=== PATIENT | male | born 1960 | race Caucasian/White ===

== ENCOUNTER → 2018-03-19 08:33 | Outpatient (CLI) | payer MEDICAID, SELFPAY ==
--- NOTE | 2018-03-19 08:36 | AAVD_ITS ---
Reason For Study: atherosclerosis Aorta Measurements Aorta Doppler Measurements Proximal aorta measures1.43 x 1.55cm. in cross- Peak systolic flow velocities within the proximal sectional axis. aorta measure 61.6 cm/sec. Proximal aorta measures1.52cm. in longitudinal Peak systolic flow velocities within the mid aorta axis. measure 68.4 cm/sec. Mid aorta measures1.56 x 1.51cm. in cross- Peak systolic flow velocities within the distal sectional axis. aorta measure 139 cm/sec. Mid aorta measures1.52cm. in longitudinal axis. Distal aorta measures1.58 x 1.65cm. in cross- sectional axis. Distal aorta measures1.58cm. in longitudinal axis. Left Iliac Artery Left iliac artery measures 1.06 x 1.09 cm. in the cross-sectional axis. Peak systolic velocity in the left iliac artery measures 312 cm/sec. Right Iliac Artery Right iliac artery measures 1.02 x 1.12 cm. in the cross-sectional axis. Peak systolic velocity in the right iliac artery measures 64.8 cm/sec. Procedure The exam was of fair technical quality due to bowel gas.. Limited views of Aorta and efrain Iliac arteries. Exam performed in department. Interpretation Summary 1. Left iliac artery stenosis. Ordering Physician: Sukh Shankar Performed By: Rachid Noyola RVT
--- NOTE | 2018-03-19 08:36 | ART_ITS ---
Reason For Study: Aortic Atherosclerosis Procedure A bilateral lower extremity continuous wave Doppler with analog waveform analysis and ankle brachial indexes. Left Segmental Pressures Left brachial= 106mmHg. Left posterior tibial artery = 130mmHg. Left dorsalis pedis artery = 120mmHg. Left digit = 84 mmHg. The left dorsalis pedis waveforms are biphasic. The left posterior tibial artery waveforms are biphasic. Right Segmental Pressures Right brachial= 114mmHg. Right posterior tibial artery = 147mmHg. Right dorsalis pedis artery = 139mmHg. Right digit = 87 mmHg. The right dorsalis pedis waveforms are triphasic. The right posterior tibial artery waveforms are triphasic. Indices The right ankle brachial index by the dorsalis pedis is 1.22. The right ankle brachial index by the posterior tibial artery is 1.29. The right digital-brachial index is 0.76. The left ankle brachial index by the dorsalis pedis is 1.05. The left ankle brachial index by the posterior tibial artery is 1.14. The left digital-brachial index is 0.74. Interpretation Summary 1. Bilateral no significant stenosis at rest with EILEEN 1.29/1.14. Ordering Physician: Sukh Shankar Referring Physician: Jamaica Lambert Performed By: Chas Noyola RVT and Student
== END ==
PROVIDERS: Family Provider Student in an Organized Health Care Education/Training Program; PCP Student in an Organized Health Care Education/Training Program; Referring Provider Surgery Vascular Surgery; Visit Provider Surgery Vascular Surgery
DX: I70.0 Atherosclerosis of aorta (principal); I77.1 Stricture of artery; I70.223 Atherosclerosis of native arteries of extremities with rest pain, bilateral legs
CPT/HCPCS: 93922; 93978

== ENCOUNTER 2018-04-10 09:12 | Day surgery (SDC) | payer MEDICAID, SELFPAY ==
[2018-03-26 08:43] VITALS: BMI 29.8
[2018-04-10 09:40] LABS: Hematocrit 42.1 % (40-54); Hemoglobin 12.9 g/dl (13.0-16.5); Mean Corp Hgb Conc 30.6 g/gl (32-36); Mean Corpuscular Hgb 29.9 pg (27.0-32.0); Mean Corpuscular Volume 97.7 fL (80-94); Mean Platelet Vol. 9.1 fl (6.2-12.0); Platelet Count 377 K/mm3 (150-450); RBC Distribution Width CV 16.1 % (11.6-14.6); RBC Distribution Width SD 57.3 fl (35.1-43.9); Red Blood Count 4.31 M/mm3 (4.6-6.2); Scan Indicated on CBC? Y/N NO; White Blood Count 10.4 K/mm3 (4.4-11.0)
[2018-04-10 09:43] LABS: BUN 22 mg/dL (7-18); BUN/Creat Ratio 31.6 RATIO (10-20); Calcium,Total 9.5 mg/dL (8.5-10.1); Chloride 104 mmol/L (98-107); EST Glomerular Filtration Rate 124 mL/min (>60); Est Glom Filt Rate - Afr Amer 150 mL/min (>60); Estimated Creatinine Clearance 129.33 ml/min; Glucose 103 mg/dL (74-106); Phosphorus 3.6 mg/dL (2.5-4.9); Potassium 4.1 mmol/L (3.5-5.1); Sodium Level 140 mmol/L (136-145)
--- NOTE | 2018-04-10 11:40 | PCM.OPRPT ---
Problem List (1) PAD (peripheral artery disease) Status: Acute Report of Operation Date of Procedure: 04/10/18 Pre-Operative Diagnosis: PAD Post-Operative Diagnosis: The same Surgery/Procedure Performed:: 1. Ultrasound-guided access retrograde left brachial artery. 2. Aortogram with iliofemoral angio. 3. Stent to left common iliac with a 7 x 29 Zoila post balloon with an 8 mm. Type of Anesthesia:: Sedation,Conscious Description of Procedure: Patient brought to the [facility]. Underwent the appropriate timeout consent. Underwent sedation. Prepped and draped in sterile fashion. We did ultrasound guided access retrograde left brachial artery. Put in a 5 Qatari sheath. A 5000 units of heparin. We got the Glidewire and Kumpe catheter down the descending thoracic aorta to the infrarenal aorta. Wrap to get the wire into the left iliac system and the catheter past the area that appeared to have some of the stenosis. We did an angiogram from there and it showed the rest of the common iliac and external iliac to the common femoral was patent. We put us long stiff Glidewire and then. Brought in a long 6 Qatari sheath. We did an angiogram from the aorta showing the right common to external iliac patent. The right internal iliac was occluded. The left common iliac with a severe near subtotal occlusion. Flow into the left internal and external iliac We then brought in a 7 x 29 Zoila stent. The post balloon this with a 8 x 4 balloon. Completion aortogram was markedly improved there is now brisk flow through the left common iliac stent with good flow and filling into the left internal and external iliac artery. We removed out the sheath and put a shorter sheath. We then gave 40 of protamine. We then held pressure with good hemostasis. Sedation: patient was given moderate sedation by Dr nAnette Shankar./ He was monitored with BP, ekg and pulse ox.He was monitored for over the 30 minutes of the procedure. See the EMR for the complete record.
--- NOTE | 2018-04-10 11:46 | OP.PCM_ITS ---
Problem List (1) PAD (peripheral artery disease) Status: Acute Report of Operation Date of Procedure: 04/10/18 Pre-Operative Diagnosis: PAD Post-Operative Diagnosis: The same Surgery/Procedure Performed:: 1. Ultrasound-guided access retrograde left brachial artery. 2. Aortogram with iliofemoral angio. 3. Stent to left common iliac with a 7 x 29 Zoila post balloon with an 8 mm. Type of Anesthesia:: Sedation,Conscious Description of Procedure: Patient brought to the [facility]. Underwent the appropriate timeout consent. Underwent sedation. Prepped and draped in sterile fashion. We did ultrasound guided access retrograde left brachial artery. Put in a 5 Mauritian sheath. A 5000 units of heparin. We got the Glidewire and Kumpe catheter down the desce nding thoracic aorta to the infrarenal aorta. Wrap to get the wire into the left iliac system and the catheter past the area that appeared to have some of the stenosis. We did an angiogram from there and it showed the rest of the common iliac and external iliac to the common femoral was patent. We put us long stiff Glidewire and then. Brought in a long 6 Mauritian sheath. We did an angiogram from the aorta showing the right common to external iliac patent. The right internal iliac was occluded. The left common iliac with a severe near subtotal occlusion. Flow into the left internal and external iliac We then brought in a 7 x 29 Zoila stent. The post balloon this with a 8 x 4 balloon. Completion aortogram was markedly improved there is now brisk flow through the left common iliac stent with good flow and filling into the left internal and external iliac artery. We removed out the sheath and put a shorter sheath. We then gave 40 of protamine. We then held pressure with good hemostasis. Sedation: patient was given moderate sedation by Dr Annette Shankar./ He was monitored with BP, ekg and pulse ox.He was monitored for over the 30 minutes of the procedure. See the EMR for the complete record.
== END 2018-04-10 14:50 | disposition skilled nursing facility (03) ==
LOC: CLSP 09:15
PROVIDERS: Family Provider Student in an Organized Health Care Education/Training Program; PCP Student in an Organized Health Care Education/Training Program; Referring Provider Surgery Vascular Surgery; Visit Provider Surgery Vascular Surgery
DX: I70.223 Atherosclerosis of native arteries of extremities with rest pain, bilateral legs (principal); I11.9 Hypertensive heart disease without heart failure; I25.2 Old myocardial infarction; E78.00 Pure hypercholesterolemia, unspecified; E11.9 Type 2 diabetes mellitus without complications; F10.10 Alcohol abuse, uncomplicated; F17.210 Nicotine dependence, cigarettes, uncomplicated; R56.9 Unspecified convulsions; Z95.1 Presence of aortocoronary bypass graft; Z91.5 Personal history of self-harm; Z79.82 Long term (current) use of aspirin; Z79.84 Long term (current) use of oral hypoglycemic drugs; Z79.899 Other long term (current) drug therapy
CPT/HCPCS: 36245; 36415; 37221; 75710; 76937; 80069; 85027; 99152; 99153; J7040; Q9967; C1725; C1769; C1876; C1894

== ENCOUNTER 2019-07-21 13:06 | Outpatient (RCR) | payer MEDICAID, SELFPAY ==
[2018-03-26 08:43] VITALS: BMI 29.8
[2019-07-21 13:20] VITALS: BP 129/76; PULSE 78; RESP 20; TEMP 36.2; BMI 39.6
--- NOTE | 2019-07-21 14:48 | PCM.WC.HP ---
History of Present Illness Date of Service: 07/21/19 Chief Complaint: Sacral pressure sore, Stage IV. History of Wound: 58 year old man presents with a sacral pressure sore that has extended down to the bone. He developed seizures about 2 years ago and has been in an ECF since then and has been nonambulatory. He denies fever. He complains of pain in the sacral pressure sore. He presents at this time for further evaluation and treatment. Past Medical History Past Medical History: Chronic Problems (Last Updated 12/07/17 @ 08:57 by Shira Conte) Epilepsy (Chronic) Diabetes mellitus (Chronic) Smoker (Chronic) Pressure ulcer of sacral region, stage 4 (Chronic) Past Medical History: Diabetes mellitus. GERD. CRF. Depression. Hyperlipidemia. Epilepsy. CAD. History of suicide attempt. History of alcohol abuse. Hypertension Surgical History: cataract, coronary bypass surgery, pacemaker implantation Allergies/Adverse Reactions: Allergies Penicillins Allergy (Mild, Verified 07/21/19 13:43) rash Home Medications: Ambulatory Orders Medication Instructions Recorded Atorvastatin Calcium [Lipitor] 80 mg PO 03/26/18 Acetaminophen [Tylenol] 650 mg PO 07/21/19 Argin/Glut/Cahmb/Collag/Mv-Min 1 ea PO 07/21/19 [Mike Packet] Aspirin 81 mg PO 07/21/19 Cimetidine [Tagamet Hb] 100 mg PO 07/21/19 Diltiazem HCl 60 mg PO 07/21/19 Docusate Sodium [Colace] 100 mg PO 07/21/19 Duloxetine Hcl [Cymbalta] 60 mg PO 07/21/19 Fenofibrate [Tricor] 145 mg PO 07/21/19 Folic Acid 1 mg PO 07/21/19 Loperamide HCl [Imodium A-D] 2 mg PO 07/21/19 Metformin HCl 1,000 mg PO 07/21/19 Metoprolol Tartrate [Lopressor] 100 mg PO 07/21/19 Multivitamin 1 tab PO 07/21/19 Nystatin Powder [Mycostatin Powder] 1 applic TOPICAL 07/21/19 [place]-3 Fatty Acids/Fish Oil [Fish 1 ea PO 07/21/19 Oil 1,000 mg Capsule] Omeprazole 20 mg PO 07/21/19 Polyethylene Glycol 3350 [Miralax] 17 gm PO 07/21/19 Valproic Acid 3 cap PO 07/21/19 - Family History Maternal Family History: Family History (Last Updated 12/07/17 @ 08:47 by Shira Conte) Father Lung cancer Brother Heart disease Myocardial infarction Mother Diabetes Hypertension Lives: Residential Smoking Status: Current some day smoker Alcohol: None - has history of alcohol abuse. Drugs: None Review of Systems Constitutional: Reports: Malaise, Fatigue. Denies: Chills, Fever Eyes: Reports: Cataracts HEENT: Denies: Nasal Congestion, Sore Throat Cardiovascular: Reports: - - has pacemaker. had CABG.. Denies: Chest Pain Respiratory: Reports: - - patient is a smoker.. Denies: Cough, Shortness of Breath Gastrointestinal: Denies: Constipation, Diarrhea, Nausea, Vomiting Genitourinary: Denies: Frequency, Hematuria Musculoskeletal: Denies: Arm Pain, Back Pain, Hand Pain, Neck Pain Skin: Reports: Wounds - has sacral pressure sore, Stage IV. Neurological: Reports: Seizures, -. Denies: Headaches Psychiatric: Reports: Depression Endocrine: Reports: - - has diabetes mellitus. Hematologic/ Lymphatic: Denies: Easy Bruising, Hx of blood clot - Physical Exam Vital Signs Temp Pulse Resp BP 97.1 F L 78 20 H 129/76 H 07/21/19 13:20 07/21/19 13:20 07/21/19 13:20 07/21/19 13:20 General: Alert, Oriented x3 HEENT: PERRLA, EOMI Oral: Moist Mucosa Neck: Supple Lungs: Clear to auscultation Cardiovascular: Regular rate, Regular Rhythm Abdomen: Soft, Non-Distended Extremities: No clubbing, No cyanosis, Edema - mild edema in lower extremities., - - patient is nonambulatory. Skin: Ulcer/ Wound - has sacral pressure sore extending to the bone. Stage IV. Tender to palpation. Measures 3 x 6 x 1 cm. Wound Measurements and Assessment WC - Nurse 1 - General Ulcer Measurement Start: 07/21/19 13:20 Freq: Status: Active Protocol: Activity Type Activity Date Activity User E-Sign Co-Sign Detail Recorded Client Recorded Date Recorded By Document 07/21/19 13:20 [facility] [id number] 07/21/19 13:36 BM 07/21/19 13:20 Wound Center Nurse 1 [Ulcer Assessment] #1 sacrum -Combined with other wound No -Current Size (cm) - Length 1.9 -Current Size (cm) - Width 5.5 -Current Size (cm) - Depth 0.5 -Total Square Cm 10.45 -Date of Last Picture (Recall this 07/21/19 field) -Photo Taken Yes -Epithelialization None Present -Tunneling No -Undermining/Tunneling Yes -Undermining/Tunneling Starts (O' 4 clock) -Undermining/Tunneling Ends (O'clock) 5 -Maximum Distance (cm) 0.4 -Circular Undermining No -Exudate Amt Small -Exudate Type Serosanguineous -Wound Margin Thickened & Rolled Under -Granulation Amt Medium (34-66%) -Granulation Quality Red -Necrosis Amt Medium (34-66%) -Necrotic Tissue Type Adherent Slough -Structure Exposed N/A -Texture (Rosalia-wound Skin Appearance) Assessed, Excoriation, Scarring -Moisture (Rosalia-wound Skin Appearance Assessed ) -Color (Rosalia-wound Skin Appearance) Assessed, Erythema,Rubor -Temperature (Rosalia-wound Skin No Abnormality Appearance) (Pt Warm) -Tenderness on Palpation (Rosalia-wound No Skin Appearance) -Ulcer Cleansing Wound Cleanser -Foul Odor after Cleansing No -Anesthetic Used 4% Lidocaine Solution WC - Nurse 2 - General Ulcer CM Notes Start: 07/21/19 13:20 Freq: Status: Active Protocol: Activity Type Activity Date Activity User E-Sign Co-Sign Detail Recorded Client Recorded Date Recorded By Document 07/21/19 14:15 ESTELA [id number] 07/21/19 14:17 ESTELA 07/21/19 14:15 Wound Center Nurse 2 [Procedure/Treatment] -Time 14:15 -Correct Patient Yes -Correct Side, Site, Position Yes -Correct Procedure Yes -Procedure Performed Yes -Type of Procedure Debridement -Clinical Debridement Subcutaneous -Post Debridement Size (cm) - Length 2.0 -Post Debridement Size (cm) - Width 5.5 -Post Debridement Size (cm) - Depth 0.5 -Total Square Cm 11.00 -Wound/Ulcer Outcome Not Healed -Ulcer Cleansing Rinsed/ Irrigated with Saline -Foul Odor after Cleansing No -Bioengineered Tissue No -Bleeding Controlled with Pressure -Offloading No -Treatment Response Procedure Tolerated Well [See Physician Procedure note for Specifics] Pain Scale: 0-10 Numeric [Pain] -Is Patient Pain Free? Yes Musculoskeletal: - - patient is nonambulatory. Lymphatic: No Cervical, Supraclavicular, or Inguinal Adenopathy Neurological: Cranial nerves II-XII grossly intact Psych/Mental Status: Normal Affect, Appropriate Debridement Note Post-Debridement Measurements/Treatment WC - Nurse 2 - General Ulcer CM Notes Start: 07/21/19 13:20 Freq: Status: Active Protocol: Activity Type Activity Date Activity User E-Sign Co-Sign Detail Recorded Client Recorded Date Recorded By Document 07/21/19 14:15 ESTEAL [id number] 07/21/19 14:17 ESTELA 07/21/19 14:15 Wound Center Nurse 2 #1 sacrum -Time 14:15 -Correct Patient Yes -Correct Side, Site, Position Yes -Correct Procedure Yes -Procedure Performed Yes -Type of Procedure Debridement -Clinical Debridement Subcutaneous -Post Debridement Size (cm) - Length 2.0 -Post Debridement Size (cm) - Width 5.5 -Post Debridement Size (cm) - Depth 0.5 -Total Square Cm 11.00 -Wound/Ulcer Outcome Not Healed -Ulcer Cleansing Rinsed/ Irrigated with Saline -Foul Odor after Cleansing No -Bioengineered Tissue No -Bleeding Controlled with Pressure -Offloading No -Treatment Response Procedure Tolerated Well Pain Scale: 0-10 Numeric Is Patient Pain Free? Yes Wound debrided: #1 Sacral area. Laterality: Not Applicable Wound Grade/Stage: IV. Type of Debridement: Excisional debridement Anesthesia Used: 4% Lidocaine Solution Depth: Down to and including healthy tissue, in the subcutaneous layer, to bone - bone is palpable but not exposed. Percentage of wound debrided: 100 Instrument Used: 5mm curette Tissue Removed: subcutaneous tissue. Severity: Fat Layer Exposed - bone is palpable but not debrided. Amount of bleeding with debridement: Mild Bleeding Controlled with: Pressure Patient tolerated procedure well Assessment/Plan Assessment: 1. Sacral pressure sore, Stage IV. 2. Diabetes mellitus. 3. PAD. 4. Epilepsy. 5. Smoker. Plan: Recommend excision of this sacral pressure sore. I anticipate bone involvement and a partial ostectomy for osteomyelitis would also be performed. Will send half the tissue and half the bone to Pathology for analysis to rule out carcinoma and to evaluate for osteomyelitis. Will send half the tissue and half the bone to Microbiology for culture. A positive culture will necessitate antibiotic therapy. Surgery will be done under general anesthesia with a surgical observation overnight stay in the hospital. During this time will obtain a CT Pelvis. Will also check a HgbA1c. Before wound closure with a myocutaneous flap, the HgbA1c needs to be less than 8. Anticipate increased metabolic demands from this pressure sore. Will check a Prealbumin and encourage nutritional supplementation with protein to help the healing process. Until surgery, proceed with Dakin's dressing changes twice a day at the [facility]. After surgery, will begin postop wound care with the [facility]. Patient was informed of the risks and complications of the procedure including alternatives to surgery. These were discussed with him personally. He voices understanding and wishes to proceed. Encouraged the patient to stop smoking as it may have deleterious effects on wound healing. At the [facility], he needs a specialty bed such as a low air loss bed to minimize pressure issues. Pressure releases are important as well. He can be in a wheelchair with a specialty cushion as long as pressure releases are done. Office Visits / Consults: [id number] OV L4 New - 25 Modifier ICD-10 - L89.154, E11.9, I73.9, G40.09, F17.200 Multi Select Codes - Integumentary Integumentary CPT Codes: 28706 Yasmine subq tissue 20 sq cm/< - ICD-10 - L89.154, E11.9, I73.9, G40.09, F17.200
== END 2019-08-05 23:59 ==
LOC: WC 13:06
PROVIDERS: PCP Student in an Organized Health Care Education/Training Program; Visit Provider Surgery
DX: L89.154 Pressure ulcer of sacral region, stage 4 (principal); E11.22 Type 2 diabetes mellitus with diabetic chronic kidney disease; N18.9 Chronic kidney disease, unspecified; K21.9 Gastro-esophageal reflux disease without esophagitis; I25.10 Atherosclerotic heart disease of native coronary artery without angina pectoris; I12.9 Hypertensive chronic kidney disease with stage 1 through stage 4 chronic kidney disease, or unspecified chronic kidney disease; E78.5 Hyperlipidemia, unspecified; F32.9 Major depressive disorder, single episode, unspecified; G40.909 Epilepsy, unspecified, not intractable, without status epilepticus; Z79.899 Other long term (current) drug therapy; Z79.84 Long term (current) use of oral hypoglycemic drugs; Z79.82 Long term (current) use of aspirin; F17.200 Nicotine dependence, unspecified, uncomplicated; E11.51 Type 2 diabetes mellitus with diabetic peripheral angiopathy without gangrene
CPT/HCPCS: 11042; 99213; G0463

== ENCOUNTER 2019-08-04 10:16 | Inpatient (IN) | payer MEDICAID, SELFPAY ==
--- NOTE | 2019-08-03 22:13 | HP.PCM_ITS ---
History and Physical Date of Admission: 08/04/19 History of Present Illness Date of Service: 07/21/19 Chief Complaint: Sacral pressure sore, Stage IV. History of Wound: 58 year old man presents with a sacral pressure sore that has extended down to the bone. He developed seizures about 2 years ago and has been in an ECF since then and has been nonambulatory. He denies fever. He complains of pain in the sacral pressure sore. He presents at this time for further evaluation and treatment. Past Medical History Past Medical History: Chronic Problems (Last Updated 12/07/17 @ 08:57 by Shira Conte) Epilepsy (Chronic) Diabetes mellitus (Chronic) Smoker (Chronic) Pressure ulcer of sacral region, stage 4 (Chronic) Past Medical History: Diabetes mellitus. GERD. CRF. Depression. Hy perlipidemia. Epilepsy. CAD. History of suicide attempt. History of alcohol abuse. Hypertension Surgical History: cataract, coronary bypass surgery, pacemaker implantation Allergies/Adverse Reactions: Allergies Penicillins Allergy (Mild, Verified 07/21/19 13:43) rash Home Medications: Ambulatory Orders Medication Instructions Recorded Atorvastatin Calcium [Lipitor] 80 mg PO 03/26/18 Acetaminophen [Tylenol] 650 mg PO 07/21/19 Argin/Glut/Cahmb/Collag/Mv-Min 1 ea PO 07/21/19 [Mike Packet] Aspirin 81 mg PO 07/21/19 Cimetidine [Tagamet Hb] 100 mg PO 07/21/19 Diltiazem HCl 60 mg PO 07/21/19 Docusate Sodium [Colace] 100 mg PO 07/21/19 Duloxetine Hcl [Cymbalta] 60 mg PO 07/21/19 Fenofibrate [Tricor] 145 mg PO 07/21/19 Folic Acid 1 mg PO 07/21/19 Loperamide HCl [Imodium A-D] 2 mg PO 07/21/19 Metformin HCl 1,000 mg PO 07/21/19 Metoprolol Tartrate [Lopressor] 100 mg PO 07/21/19 Multivitamin 1 tab PO 07/21/19 Nystatin Powder [Mycostatin Powder] 1 applic TOPICAL 07/21/19 [place]-3 Fatty Acids/Fish Oil [Fish 1 ea PO 07/21/19 Oil 1,000 mg Capsule] Omeprazole 20 mg PO 07/21/19 Polyethylene Glycol 3350 [Miralax] 17 gm PO 07/21/19 Valproic Acid 3 cap PO 07/21/19 - Family History Maternal Family History: Family History (Last Updated 12/07/17 @ 08:47 by Shira Conte) Father Lung cancer Brother Heart disease Myocardial infarction Mother Diabetes Hypertension Lives: Long Term Smoking Status: Current some day smoker Alcohol: None - has history of alcohol abuse. Drugs: None Review of Systems Constitutional: Reports: Malaise, Fatigue. Denies: Chills, Fever Eyes: Reports: Cataracts HEENT: Denies: Nasal Congestion, Sore Throat Cardiovascular: Reports: - - has pacemaker. had CABG.. Denies: Chest Pain Respiratory: Reports: - - patient is a smoker.. Denies: Cough, Shortness of Breath Gastrointestinal: Denies: Constipation, Diarrhea, Nausea, Vomiting Genitourinary: Denies: Frequency, Hematuria Musculoskeletal: Denies: Arm Pain, Back Pain, Hand Pain, Neck Pain Skin: Reports: Wounds - has sacral pressure sore, Stage IV. Neurological: Reports: Seizures, -. Denies: Headaches Psychiatric: Reports: Depression Endocrine: Reports: - - has diabetes mellitus. Hematologic/ Lymphatic: Denies: Easy Bruising, Hx of blood clot - Physical Exam Vital Signs Temp Pulse Resp BP 97.1 F L 78 20 H 129/76 H 07/21/19 13:20 07/21/19 13:20 07/21/19 13:20 07/21/19 13:20 General: Alert, Oriented x3 HEENT: PERRLA, EOMI Oral: Moist Mucosa Neck: Supple Lungs: Clear to auscultation Cardiovascular: Regular rate, Regular Rhythm Abdomen: Soft, Non-Distended Extremities: No clubbing, No cyanosis, Edema - mild edema in lower extremities., - - patient is nonambulatory. Skin: Ulcer/ Wound - has sacral pressure sore extending to the bone. Stage IV. Tender to palpation. Measures 3 x 6 x 1 cm. Wound Measurements and Assessment WC - Nurse 1 - General Ulcer Measurement Start: 07/21/19 13:20 Freq: Status: Active Protocol: Activity Type Activity Date Activity User E-Sign Co-Sign Detail Recorded Client Recorded Date Recorded By Document 07/21/19 13:20 [facility] [id number] 07/21/19 13:36 BM 07/21/19 13:20 Wound Center Nurse 1 [Ulcer Assessment] #1 sacrum -Combined with other wound No -Current Size (cm) - Length 1.9 -Current Size (cm) - Width 5.5 -Current Size (cm) - Depth 0.5 -Total Square Cm 10.45 -Date of Last Picture (Recall this 07/21/19 field) -Photo Taken Yes -Epithelialization None Present -Tunneling No -Undermining/Tunneling Yes -Undermining/Tunneling Starts (O' 4 clock) -Undermining/Tunneling Ends (O'clock) 5 -Maximum Distance (cm) 0.4 -Circular Undermining No -Exudate Amt Small -Exudate Type Serosanguineous -Wound Margin Thickened & Rolled Under -Granulation Amt Medium (34-66%) -Granulation Quality Red -Necrosis Amt Medium (34-66%) -Necrotic Tissue Type Adherent Slough -Structure Exposed N/A -Texture (Rosalia-wound Skin Appearance) Assessed, Excoriation, Scarring -Moisture (Rosalia-wound Skin Appearance Assessed ) -Color (Rosalia-wound Skin Appearance) Assessed, Erythema,Rubor -Temperature (Rosalia-wound Skin No Abnormality Appearance) (Pt Warm) -Tenderness on Palpation (Rosalia-wound No Skin Appearance) -Ulcer Cleansing Wound Cleanser -Foul Odor after Cleansing No -Anesthetic Used 4% Lidocaine Solution WC - Nurse 2 - General Ulcer CM Notes Start: 07/21/19 13:20 Freq: Status: Active Protocol: Activity Type Activity Date Activity User E-Sign Co-Sign Detail Recorded Client Recorded Date Recorded By Document 07/21/19 14:15 ESTELA [id number] 07/21/19 14:17 ESTELA 07/21/19 14:15 Wound Center Nurse 2 [Procedure/Treatment] -Time 14:15 -Correct Patient Yes -Correct Side, Site, Position Yes -Correct Procedure Yes -Procedure Performed Yes -Type of Procedure Debridement -Clinical Debridement Subcutaneous -Post Debridement Size (cm) - Length 2.0 -Post Debridement Size (cm) - Width 5.5 -Post Debridement Size (cm) - Depth 0.5 -Total Square Cm 11.00 -Wound/Ulcer Outcome Not Healed -Ulcer Cleansing Rinsed/ Irrigated with Saline -Foul Odor after Cleansing No -Bioengineered Tissue No -Bleeding Controlled with Pressure -Offloading No -Treatment Response Procedure Tolerated Well [See Physician Procedure note for Specifics] Pain Scale: 0-10 Numeric [Pain] -Is Patient Pain Free? Yes Musculoskeletal: - - patient is nonambulatory. Lymphatic: No Cervical, Supraclavicular, or Inguinal Adenopathy Neurological: Cranial nerves II-XII grossly intact Psych/Mental Status: Normal Affect, Appropriate Debridement Note Post-Debridement Measurements/Treatment WC - Nurse 2 - General Ulcer CM Notes Start: 07/21/19 13:20 Freq: Status: Active Protocol: Activity Type Activity Date Activity User E-Sign Co-Sign Detail Recorded Client Recorded Date Recorded By Document 07/21/19 14:15 [id number] 07/21/19 14:17 ESTELA 07/21/19 14:15 Wound Center Nurse 2 #1 sacrum -Time 14:15 -Correct Patient Yes -Correct Side, Site, Position Yes -Correct Procedure Yes -Procedure Performed Yes -Type of Procedure Debridement -Clinical Debridement Subcutaneous -Post Debridement Size (cm) - Length 2.0 -Post Debridement Size (cm) - Width 5.5 -Post Debridement Size (cm) - Depth 0.5 -Total Square Cm 11.00 -Wound/Ulcer Outcome Not Healed -Ulcer Cleansing Rinsed/ Irrigated with Saline -Foul Odor after Cleansing No -Bioengineered Tissue No -Bleeding Controlled with Pressure -Offloading No -Treatment Response Procedure Tolerated Well Pain Scale: 0-10 Numeric Is Patient Pain Free? Yes Wound debrided: #1 Sacral area. Laterality: Not Applicable Wound Grade/Stage: IV. Type of Debridement: Excisional debridement Anesthesia Used: 4% Lidocaine Solution Depth: Down to and including healthy tissue, in the subcutaneous layer, to bone - bone is palpable but not exposed. Percentage of wound debrided: 100 Instrument Used: 5mm curette Tissue Removed: subcutaneous tissue. Severity: Fat Layer Exposed - bone is palpable but not debrided. Amount of bleeding with debridement: Mild Bleeding Controlled with: Pressure Patient tolerated procedure well Assessment/Plan Assessment: 1. Sacral pressure sore, Stage IV. 2. Diabetes mellitus. 3. PAD. 4. Epilepsy. 5. Smoker. Plan: Recommend excision of this sacral pressure sore. I anticipate bone involvement and a partial ostectomy for osteomyelitis would also be performed. Will send half the tissue and half the bone to Pathology for analysis to rule out carcinoma and to evaluate for osteomyelitis. Will send half the tissue and half the bone to Microbiology for culture. A positive culture will necessitate antibiotic therapy. Surgery will be done under general anesthesia with a surgical observation overnight stay in the hospital. During this time will obtain a CT Pelvis. Will also check a HgbA1c. Before wound closure with a myocutaneous flap, the HgbA1c needs to be less than 8. Anticipate increased metabolic demands from this pressure sore. Will check a Prealbumin and encourage nutritional supplementation with protein to help the healing process. Until surgery, proceed with Dakin's dressing changes twice a day at the [facility]. After surgery, will begin postop wound care with the VAC. Patient was informed of the risks and complications of the procedure including alternatives to surgery. These were discussed with him personally. He voices understanding and wishes to proceed. Encouraged the patient to stop smoking as it may have deleterious effects on wound healing. At the [facility], he needs a specialty bed such as a low air loss bed to minimize pressure issues. Pressure releases are important as well. He can be in a wheelchair with a specialty cushion as long as pressure releases are done. Essential Procedure Criteria Procedure Essential: Yes Criteria Note: On 04/22/2019 the [place] Department of Health ([facility]) Public Order signed by [facility] Director Emilie Webb M.D., regarding the Management of Non- Essential Surgeries and Procedures for the purpose of preserving Personal Protective Equipment (PPE) and critical hospital capacity and resources within [place] went into effect as of 04/23/2019 at 5:00PM. According to the [facility] Public Order: This action will remain in full force and effect until the State of Emergency declared by the Governor no longer exists or the Director of the [facility] rescinds or modifies this Order.. This [facility] order stated all non-essential or elective surgeries and procedures that utilize PPE should be delayed unless there is undue risk to the current or future health of a patient. After reviewing the aforementioned [facility] Public Order and the patients clinical case, I have determined that the scheduled procedure meets the criteria to go forward. Risk to Patient if Procedure Delayed: Risk of rapidly worsening to severe symptoms if delayed - patient developed a large sacral pressure sore with underlying bone involvement and is at risk for developing osteomyelitis.
[2019-08-04] VITALS (12 sets, daily range): BP systolic 99–131; BP diastolic 58–73; PULSE 68–98; RESP 16–92; TEMP 36.2–36.6; O2SAT 92–98; BMI 38.6
--- NOTE | 2019-08-04 | PRES_PTH ---
PATIENT: LUNA RICHARD LOC: MS3 U#:[id number] AGE/SX: 58/M ROOM: SD316 RE08/05/[address]: Dr. Dg Nguyễn MD : 1960 BED: 1 DIS: 08/13/2019 SPEC #: [id number] RECD: 08/04/19 12:04 STATUS: TIMOTHY REQ #: [id number] KYAW: 08/04/19 00:[address]: Dg Nguyễn DEPT: SURGICAL PATHOLOGY RECD BY: Blayne Wright ENTERED: 08/04/19 12:04 SP TYPE: PRESS SORE OTHR DR: Dr. Jamaica Lambert MD Tissues: A - Sacral region B - Sacral region Procedures: Decalcification bone/plaque Surgery Specimen Level III HEADER OPERATION: Excision sacral pressure sore, partial ostectomy PRE-OP DIAGNOSIS: Sacral pressure sore stage IV TISSUE SUBMITTED: A - Sacral pressure sore stage IV soft tissue, B - Sacral pressure sore stage IV bone MICROSCOPIC DIAGNOSIS A. Sacral pressure sore stage IV soft tissue: Pieces of skin with underlying tissue with focal ulceration, acute and chronic inflammation and granulation tissue reaction. Pseudoepitheliomatous hyperplasia and focal dense fibrosis of underlying tissue. B. Sacral pressure sore stage IV bone: Pieces of bone with reactive changes, negative for acute osteomyelitis. Adherent pieces of fibroconnective tissue with granulation tissue reaction. CITLALI:nidia 08/07/19 MICROSCOPIC DESCRIPTION Slides are reviewed. GROSS DESCRIPTION A - Received in fixative is one container labeled with the patient's name and designated sacral pressure sore stage IV soft tissue. The specimen consists of multiple pieces of skin with underlying tissue and pieces of soft tissue that in aggregate measure 11 x 11 x 2.5 cm. The surface shows extensive area of ulceration. No mass lesion is identified. Premium Service Representative sections are submitted in two cassettes. B - Received in fixative is one container labeled with the patient's name and designated sacral pressure sore stage IV bone. The specimen consists of multiple pieces of bone that in aggregate measure 2.5 x 2 x 0.5 cm. The entire specimen is submitted in one cassette after decalcification. / CITLALI:nidia 08/04/19 TC:2 CPT: 43664 x2, [id number]
--- NOTE | 2019-08-04 06:58 | EKG12_ITS ---
Test Reason : PRE-OP Blood Pressure : / mmHG Vent. Rate : 067 BPM Atrial Rate : 067 BPM P-R Int : 166 ms QRS Dur : 110 ms QT Int : 410 ms P-R-T Axes : 060 -33 063 degrees QTc Int : 433 ms Normal sinus rhythm Left axis deviation Inferior infarct (cited on or before 09-FEB-2012) ST & T wave abnormality, consider lateral ischemia Abnormal ECG When compared with ECG of 09-FEB-2012 06:13, Vent. rate has decreased BY 34 BPM QRS axis Shifted left T wave inversion now evident in Lateral leads Confirmed by KATHERINE LAWRENCE ([id number]), editor index HEVER CERVANTES ([id number]) on 08/07/2019 12:05:06 PM Referred By: Dg Nguyễn Confirmed By:KATHERINE LAWRENCE
[2019-08-04 07:35] LABS: Bedside Glucose 142 mg/dL (70-110)
[2019-08-04] MEDS: Lactated Ringers 1,000 ML 100 ML IV ×2 (08:14→09:45)
--- NOTE | 2019-08-04 10:11 | PCM.OPRPT ---
Report of Operation Date of Procedure: 08/04/19 Pre-Operative Diagnosis: 1. Sacral pressure sore, Stage IV. 2. Diabetes mellitus. 3. PAD. 4. Epilepsy. 5. Smoker. Post-Operative Diagnosis: Same. Surgery/Procedure Performed:: Excision sacral pressure sore, Stage IV, with partial ostectomy for osteomyelitis. Description of Surgical Findings:: 58 year old man presents with a sacral pressure sore that has extended down to the bone. He developed seizures about 2 years ago and has been in an ECF since then and has been nonambulatory. He denies fever. He complains of pain in the sacral pressure sore. Patient was informed of the risks and complications of the procedure including alternatives to surgery. These were discussed with the patient personally. Patient voices understanding and wishes to proceed. Encouraged patient to stop smoking as it may have deleterious effects on wound healing. IV Fluids - 1450 ml. Urine Output - 350 ml. Size of defect sacral area - 19 x 9 x 4 cm. financial assistance specialist: Jasbir Loyd. Type of Anesthesia:: General Specimen's removed: 1. Sacral pressure sore, Stage IV, soft tissue to Pathology and Microbiology. 2. Sacral pressure sore, Stage IV, bone to Pathology and Microbiology. Drains: None. Estimated Blood Loss (mL): 150 ml. Fluids Replaced: 1800 ml (IV Fluids 1450 ml, Urine Output 350 ml). Description of Procedure: Patient was taken to OR in supine position and was placed under general anesthesia. He was placed in the prone position. SCD's were placed for DVT prophylaxis. Perioperative antibiotics were given intravenously. For the surgery I wore an N95 mask and wore proper eye protection. The sacral area was prepped and draped in the usual fashion. Using xylocaine with epinephrine, the sacral pressure sore was infiltrated. After waiting 5 minutes for the anesthetic to take effect, I excised the sacral pressure sore in an oval fashion through dense subcutaneous tissue and muscle which extended down to the bone. A lot of fat necrosis was present as well. No pus was seen. A partial ostectomy was then performed using rongeurs. The bone looked grayish and was not very hard. Clinically the bone looked suspicious for osteomyelitis. Specimens from several areas of bone were taken. A rasp was used to smooth out the bony edges. After excising the extensive fat necrosis and dense abnormal bursal scar tissue, the remaining soft tissue showed good bleeding. The underlying muscle appeared soft and viable. Hemostasis was obtained with electrocautery. The size of the sacral pressure sore after excision was 19 x 9 x 4 cm. The wound was irrigated with saline. I placed bone wax on the sacral bone to help minimize bone bleeding. I then dressed the wound by placing Mepitel nonadherent dressing in the base of the wound followed by Kerlix gauze and Betadine and dry Kerlix gauze followed by ABD pads compression dressing. Half the soft tissue and half the bone was sent to Pathology for analysis to rule out carcinoma and to evaluate for osteomyelitis. Half the soft tissue and half the bone was sent to Microbiology for culture. A positive culture will necessitate antibiotic therapy. If pathology is positive for osteomyelitis, then superintendent container terminal IV antibiotics would be needed through a PICC line. Patient tolerated the procedure well and was sent to PACU in satisfactory condition. Patient will be sent upstairs for continued postop care. The VAC will be placed tomorrow. Anticipate increased metabolic demands. Will check a Prealbumin and encourage nutritional supplementation with protein to help the healing process. If a VAC cannot be placed because of its location and proximity to the anal opening, then will proceed with Dakin's dressing changes twice a day. The pressure sore ulcer is very close to the anal opening. He wound benefit from a diverting colostomy to minimize stool contamination and maximize the healing process. Will discuss with the patient and his family. Grafts/Implants Used: None. - Complications None. - Admit VTE Documentation VTE Present on Admission: No VTE Mechan Device Prophylaxis: SCD's VTE Pharm Prophylaxis ordered?: Yes Surgery Charges CPT - 53572 ICD-10 - L89.154, E11.9, I73.9, G40.909, F17.200
[2019-08-04 11:10] LABS: Bedside Glucose 191 mg/dL (70-110)
[2019-08-04] MEDS: Lactated Ringers 1,000 ML 60 ML IV (12:24)
[2019-08-04] MEDS: dilTIAZem 30 MG Tablet 60 MG PO ×2 (14:04→22:43)
[2019-08-04] MEDS: Divalproex Sodium 250 MG Tablet 750 MG PO ×2 (14:05→22:44)
[2019-08-04 17:15] LABS: Bedside Glucose 234 mg/dL (70-110)
[2019-08-04] MEDS: Docusate Sodium 100 MG Capsule PO (22:43)
[2019-08-04] MEDS: Atorvastatin Calcium 80 MG Tablet PO (22:47)
[2019-08-04] MEDS: Metoprolol Tartrate 100 MG Tablet PO (22:47)
[2019-08-04 23:51] LABS: Bedside Glucose 188 mg/dL (70-110)
[2019-08-05] VITALS (10 sets, daily range): BP systolic 100–143; BP diastolic 41–75; PULSE 78–93; RESP 16–18; TEMP 36.4–36.8; O2SAT 95–99
[2019-08-05] MEDS: Lactated Ringers 1,000 ML 60 ML IV ×2 (04:37→21:04)
[2019-08-05 06:01] LABS: Hematocrit 35.3 % (40-54); Hemoglobin 10.7 g/dL (13.0-16.5); Mean Corp Hgb Conc 30.3 g/dL (32-36); Mean Corpuscular Hgb 29.7 pg (27.0-32.0); Mean Corpuscular Volume 98.1 fL (80-94); Mean Platelet Vol. 9.4 fl (6.2-12.0); Platelet Count 307 K/mm3 (150-450); RBC Distribution Width CV 15.5 % (11.6-14.6); RBC Distribution Width SD 55.8 fl (35.1-43.9); White Blood Count 9.3 K/mm3 (4.4-11.0)
[2019-08-05 06:53] LABS: ALB/GLOB Ratio 0.6 RATIO (0.9-2.4); AST(SGOT) 12 U/L (15-37); Alanine Aminotransfer ALT/SGPT 24 U/L (16-61); Albumin, Serum 2.5 g/dL (3.2-5.0); Alkaline Phosphatase 75 U/L (45-117); Anion Gap 4 (5-15); BUN 23 mg/dL (7-18); BUN/Creat Ratio 31.7 RATIO (10-20); Calcium,Total 8.9 mg/dL (8.5-10.1); Chloride 103 mmol/L (98-107); Creatinine, Serum 0.72 mg/dL (0.70-1.30); EST Glomerular Filtration Rate 118 mL/min (>60); Est Glom Filt Rate - Afr Amer 143 mL/min (>60); Estimated Creatinine Clearance 124.24 ml/min; Globulin 4.5 g/dL (2.2-4.2); Glucose 182 mg/dL (74-106); Potassium 4.2 mmol/L (3.5-5.1); Sodium Level 137 mmol/L (136-145)
[2019-08-05] MEDS: Divalproex Sodium 250 MG Tablet 750 MG PO ×3 (06:58→21:00)
[2019-08-05] MEDS: Enoxaparin 40 MG/0.4 ML Syringe SC (06:59)
[2019-08-05 07:06] LABS: Bedside Glucose 157 mg/dL (70-110)
[2019-08-05 07:07] LABS: Erythrocyte Sedimentation Rate 31 mm/hr (0-20)
[2019-08-05] MEDS: oxyCODONE 5 MG Tablet 10 MG PO ×3 (07:59→20:58)
[2019-08-05] MEDS: Docusate Sodium 100 MG Capsule PO ×2 (08:00→20:59)
[2019-08-05] MEDS: DULoxetine Hcl 60 MG Capsule PO (08:00)
[2019-08-05] MEDS: Folic Acid 1 MG Tablet PO (08:01)
[2019-08-05] MEDS: Pantoprazole Sodium 20 MG Tablet PO (08:01)
[2019-08-05] MEDS: Fenofibrate 145 MG Tablet PO (08:03)
[2019-08-05] MEDS: metFORMIN (XR) 500 MG Tablet 2000 MG PO (08:04)
[2019-08-05] MEDS: Multivitamins,Therapeutic Tablet 1 TABLET PO (08:05)
[2019-08-05] MEDS: Polyethylene Glycol 3350 17 GM PACKET PO (08:10)
[2019-08-05] MEDS: Famotidine 20 MG Tablet PO (08:10)
[2019-08-05] MEDS: Metoprolol Tartrate 100 MG Tablet PO ×2 (08:10→21:01)
--- NOTE | 2019-08-05 10:07 | CASEMGMT ---
Social Work Note Pt is listed as being from [facility]. LUNA placed a call to Kirstin at [facility]. 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 LUNA faxed updated clinicals to [facility]. LUNA in to speak with pt. LUNA introduced self and role at [facility]. Pt is alert and orientated x3. Pt confirms that he is from [facility] and plan is to return at discharge. Plan: Return to [facility] once medically cleared Kay Allen REGISTRATION MANAGER, ADJUNCT FAC[employer]Y
--- NOTE | 2019-08-05 10:24 | PN.SURG_ITS ---
Subjective: post op day #1 - Physical Exam Vitals/I&O's: Vital Signs Temp Pulse Resp BP Pulse Ox 98.0 F 78 18 100/41 L 98 08/05/19 07:55 08/05/19 08:10 08/05/19 07:55 08/05/19 07:55 08/05/19 07:55 Oxygen Flow Rate (L/min) 2 Oxygen Delivery Method Room Air Weight: 285 lb Body Mass Index (BMI) 38.6 Finger Stick Blood Glucose 191 Intake and Output for Last 24 Hours 08/03/19 08/04/19 08/05/19 23:59 23:59 23:59 Intake Total 2106 / 2106 973 / 973 Output Total 2360 / 2360 500 / 500 Balance -254 / -254 473 / 473 General: Alert, Cooperative HEENT: Atraumatic Oral: Moist Mucosa Lungs: Clear to auscultation, Normal air movement Cardiovascular: Regular rate, Regular Rhythm Abdomen: Soft, Non Tender Extremities: Capillary Refill Less than 3 Seconds, Edema Skin: Ulcer/ Wound - Sacral ulcer Stage IV. No active bleeding. Musculoskeletal: No Tenderness to Palpation of Joints or Extremities Neurological: Neuro grossly intact Psych/Mental Status: Normal Affect, Appropriate Microbiology Past 72 Hours 08/04/19 10:26 Tissue - Bone Gram Stain - Final 08/04/19 10:26 Tissue - Bone Wound Culture - Preliminary No growth-Final to follow 08/04/19 10:26 Tissue - Sacral Gram Stain - Final 08/04/19 10:26 Tissue - Sacral Wound Culture - Preliminary Gram negative elmer Laboratory Results 08/04/19 11:07: POC Glucose 191 H 08/04/19 17:10: POC Glucose 234 H 08/04/19 22:34: POC Glucose 188 H 08/05/19 05:32: WBC 9.3, RBC 3.60 L, Hgb 10.7 L, Hct 35.3 L, MCV 98.1 H, MCH 29.7, MCHC 30.3 L, RDW Std Deviation 55.8 H, RDW Coeff of Tio 15.5 H, Plt Count 307, MPV 9.4, ESR 31 H 08/05/19 05:32: Sodium 137, Potassium 4.2, Chloride 103, Carbon Dioxide 30.0, Anion Gap 4 L, BUN 23 H, Creatinine 0.72, Estim Creat Clear Calc 124.24, Est GFR (MDRD) Af Amer 143, Est GFR (MDRD) Non-Af 118, BUN/Creatinine Ratio 31.7 H, Glucose 182 H, Calcium 8.9, Total Bilirubin 0.20, AST 12 L, ALT 24, Alkaline Phosphatase 75, C-React Prot Ext Range 20.50 H, Total Protein 7.0, Albumin 2.5 L , Globulin 4.5 H, Albumin/Globulin Ratio 0.6 L, Prealbumin 19.0 L 08/05/19 06:52: POC Glucose 157 H Current Medications Acetaminophen (Tylenol) 650 mg PO Q6H PRN PRN Reason: PAIN/FEVER Atorvastatin Calcium (Lipitor) 80 mg PO QHS [facility] Last Admin: 08/04/19 22:47 Dose: 80 mg Documented by: Diazepam (Valium) 5 mg PO 4X/DAY PRN PRN PRN Reason: SPASMS Diltiazem HCl (Cardizem) 60 mg PO TID [facility] Last Admin: 08/05/19 07:35 Dose: Not Given Documented by: Divalproex Sodium (Depakote) 750 mg PO TID [facility] Last Admin: 08/05/19 06:58 Dose: 750 mg Documented by: Docusate Sodium (Colace) 100 mg PO BID [facility] Last Admin: 08/05/19 08:00 Dose: 100 mg Documented by: Duloxetine HCl (Cymbalta) 60 mg PO DAILY [facility] Last Admin: 08/05/19 08:00 Dose: 60 mg Documented by: Enoxaparin Sodium (Lovenox) 40 mg SC DAILY@0600 [facility] Last Admin: 08/05/19 06:59 Dose: 40 mg Documented by: Famotidine (Pepcid) 20 mg PO DAILY [facility] Last Admin: 08/05/19 08:10 Dose: 20 mg Documented by: Fen[facility]ibr[facility] (Tricor) [facility] Last Admin: 08/05/19 08:03 Dose: 145 mg Documented by: Folic Acid (Folic Acid) 1 mg PO DAILY@0800 [facility] Last Admin: 08/05/19 08:01 Dose: 1 mg Documented by: Hydromorphone HCl (Dilaudid Inj) 1 mg IV Q4H PRN PRN PRN Reason: Pain Score 6-10/10 Lactated Ringer's () 1,000 mls @ 60 mls/hr IV .[id number] [facility] Last Admin: 08/05/19 04:37 Dose: 60 mls/hr Documented by: Sodium Chloride () 250 mls @ 15 mls/hr IV .[id number] PRN PRN Reason: Saline Flush Sodium Chloride () 250 mls @ 15 mls/hr IV .[id number] PRN PRN Reason: Additional IVPB Infusion Loperamide HCl (Imodium) 2 mg PO TID PRN PRN PRN Reason: Diarrhea Metformin HCl (Glucophage Xr) 2,000 mg [facility] Last Admin: 08/05/19 08:04 Dose: 2,000 mg Documented by: Metoprolol Tartrate (Lopressor (Beta Dana)) 100 mg PO BID [facility] Last Admin: 08/05/19 08:10 Dose: 100 mg Documented by: Multivitamins (Multivitamin) 1 tablet PO DAILY@0800 [facility] Last Admin: 08/05/19 08:05 Dose: 1 tablet Documented by: Nutritional Formula (Mike - [place] Flavor) [facility] Last Admin: 08/05/19 08:01 Dose: 1 packet Documented by: [id number] Ethyl Esters (Lovaza) 1 gm PO DAILY [facility] Last Admin: 08/05/19 08:10 Dose: Not Given Documented by: Ondansetron HCl (Zofran) 4 mg IV Q6H PRN PRN PRN Reason: NAUSEA Oxycodone HCl (Oxyir) 10 mg PO Q4H PRN PRN PRN Reason: Pain Score 6-10/10 Last Admin: 08/05/19 07:59 Dose: 10 mg Documented by: Pantoprazole Sodium (Protonix) 20 mg PO DAILY [facility] Last Admin: 08/05/19 08:01 Dose: 20 mg Documented by: Polyethylene Glycol (Miralax) 17 gm PO DAILY [facility] Last Admin: 08/05/19 08:10 Dose: 17 gm Documented by: Promethazine HCl (Phenergan Tablet) 25 mg PO Q4H PRN PRN PRN Reason: NAUSEA/VOMITING Sodium Chloride () 10 - 40 ml IV UD PRN PRN Reason: SALINE FLUSH Medical Necessity - Tobacco Use Smoking Status: Current every day smoker Tobacco Use: Cigarettes Assessment/Plan All Active Problems (Last Updated 11/02/18 @ 08:57 by Shira Conte) PAD (peripheral artery disease) (Acute) Excision sacral pressure sore, Stage IV, with partial ostectomy for osteomyelitis. Surgical dressing removed without difficulty. Initial plan was to have wound VAC but with the location of the ulcer, it will not have a good seal above the anal opening Will do Dakin's moistened gauze dressing changes twice daily Prealbumin is 19.0. Encouraged nutritional support due to the size of the ulcer. Patient receiving Mike BID. H/H 10.7/35.3 Surgical bone culture - preliminary no growth. Surgical tissue cultures - preliminary Gram negative Elmer.
--- NOTE | 2019-08-05 10:39 | NURSING ---
Spoke with POA on the phone and daily update given.
--- NOTE | 2019-08-05 10:48 | NURSING ---
wound photo: sacrum
[2019-08-05 12:20] LABS: Bedside Glucose 167 mg/dL (70-110)
--- NOTE | 2019-08-05 12:45 | CT_ITS ---
STUDY: CT PELVIS WITHOUT CONTRAST REASON FOR EXAM: Male, 58 years old. Stage four sacral pressure sore, patient had recent surgery for wound RADIATION DOSAGE (If Supplied By Facility): CTDIvol = ( 28.21 ) mGy, DLP = ( 1201.39 ) mGycm TECHNIQUE: Transaxial imaging of the pelvis was performed with oral contrast, and without intravenous administration of contrast material. Individualized dose optimization techniques were used for this CT. COMPARISON: None. FINDINGS: A Chakraborty catheter is seen within the decompressed urinary bladder. A right-sided double-J stent catheter is seen within the right ureter. Normal visualized small intestine. Normal visualized colon. There is no pelvic fluid. There is no pelvic mass lesion or lymphadenopathy. There is diffuse atherosclerotic calcification of the pelvic arteries. There is evidence of a 3 cm x 12.1 cm x 7.4 cm soft tissue defect overlying the posterior sacrum in keeping with the patient''s history of decubitus ulceration and debridement. The underlying bony sacrum appears to be unremarkable. Degenerative changes of the sacroiliac joints bilaterally. Osteoarthritis of both hip joints. CT/Pelvis without IV Contrast IMPRESSION: 12.1 cm x 3 cm x 7.4 sinus soft tissue defect overlying the posterior sacrum in keeping with the patient''s history of decubitus ulceration and debridement. The underlying sacrum is unremarkable. Electronically Signed: Erwin Lazo, at 13:31 EDT , Service support ,
[2019-08-05] MEDS: levoFLOXacin IV 500 MG/100 ML BAG 100 MG IV (14:08)
[2019-08-05] MEDS: dilTIAZem 30 MG Tablet 60 MG PO ×2 (14:12→20:59)
[2019-08-05 16:46] LABS: Bedside Glucose 163 mg/dL (70-110)
[2019-08-05] MEDS: Atorvastatin Calcium 80 MG Tablet PO (21:00)
[2019-08-05] MEDS: Insulin Lispro 100 UNIT/ML INSULN.PEN SC (21:09)
[2019-08-05] MEDS: DAKIN'S SOL HALF STRENGTH (=0.25%) 1 APPLIC TOPICAL (21:12)
[2019-08-05 21:16] LABS: Bedside Glucose 183 mg/dL (70-110)
[2019-08-06] VITALS (7 sets, daily range): BP systolic 103–147; BP diastolic 56–77; PULSE 85–94; RESP 16–20; TEMP 36.7–37.5; O2SAT 92–95
[2019-08-06] MEDS: oxyCODONE 5 MG Tablet 10 MG PO ×3 (01:04→20:31)
[2019-08-06] MEDS: Enoxaparin 40 MG/0.4 ML Syringe SC (06:36)
[2019-08-06] MEDS: dilTIAZem 30 MG Tablet 60 MG PO ×3 (06:36→21:18)
[2019-08-06] MEDS: Divalproex Sodium 250 MG Tablet 750 MG PO ×3 (06:36→21:18)
[2019-08-06 06:45] LABS: Bedside Glucose 140 mg/dL (70-110)
[2019-08-06 06:55] LABS: Hematocrit 35.4 % (40-54); Hemoglobin 10.9 g/dL (13.0-16.5); Mean Corp Hgb Conc 30.8 g/dL (32-36); Mean Corpuscular Hgb 29.5 pg (27.0-32.0); Mean Corpuscular Volume 95.7 fL (80-94); Mean Platelet Vol. 9.5 fl (6.2-12.0); Platelet Count 320 K/mm3 (150-450); RBC Distribution Width CV 15.8 % (11.6-14.6); RBC Distribution Width SD 55.8 fl (35.1-43.9); White Blood Count 12.5 K/mm3 (4.4-11.0)
[2019-08-06 08:21] LABS: Hemoglobin A1c 7.9 % (3.8-5.6)
[2019-08-06] MEDS: Omega-3 Acid Ethyl Esters 1 GM Capsule PO (09:06)
--- NOTE | 2019-08-06 09:06 | NURSING ---
Pt having urine/drainage from around the coyne catheter. the coyne had been in place from the group home and was not changed when patient was admitted for surgery. urine is milky and has a very strong odor. Discussed with Dr Nguyễn and coyne catheter was removed and new 18F catheter was inserted. pt tolerated well. catheter care was provided. gently pulled foreskin back to thoroughly clean and dry prior to catheter insertion. foreskin was then pulled back in place. cath secure placed.
[2019-08-06] MEDS: DULoxetine Hcl 60 MG Capsule PO (09:07)
[2019-08-06] MEDS: Pantoprazole Sodium 20 MG Tablet PO (09:07)
[2019-08-06] MEDS: metFORMIN (XR) 500 MG Tablet 2000 MG PO (09:07)
[2019-08-06] MEDS: Docusate Sodium 100 MG Capsule PO ×2 (09:07→21:18)
[2019-08-06] MEDS: Famotidine 20 MG Tablet PO (09:07)
[2019-08-06] MEDS: Fenofibrate 145 MG Tablet PO (09:07)
[2019-08-06] MEDS: Folic Acid 1 MG Tablet PO (09:07)
[2019-08-06] MEDS: Multivitamins,Therapeutic Tablet 1 TABLET PO (09:08)
[2019-08-06] MEDS: Polyethylene Glycol 3350 17 GM PACKET PO (09:08)
[2019-08-06] MEDS: DAKIN'S SOL HALF STRENGTH (=0.25%) 1 APPLIC TOPICAL ×2 (09:08→22:21)
[2019-08-06] MEDS: Metoprolol Tartrate 100 MG Tablet PO ×2 (09:08→21:17)
[2019-08-06] MEDS: levoFLOXacin IV 500 MG/100 ML BAG 100 MG IV (10:12)
[2019-08-06] MEDS: Insulin Lispro 100 UNIT/ML INSULN.PEN SC ×3 (11:17→21:21)
[2019-08-06 11:35] LABS: Bedside Glucose 186 mg/dL (70-110)
[2019-08-06] MEDS: Lactated Ringers 1,000 ML 60 ML IV (15:20)
--- NOTE | 2019-08-06 15:34 | CASEMGMT ---
Social Work Note LUNA updated by physician that pt is deciding whether to have a diverting colostomy or not. If pt decides not to have diverting colostomy, pt could potentially discharge back to [facility] with dressing changes. It pt does decide to have diverting colostomy, then pt will remain at [facility] for procedure. LUNA placed a call to Kirstin at [facility] and updated her on above information and that if pt decides not to have diverting colostomy then pt will likely discharge back today with dressing changes. Kirstin states understanding. Green sheet and transport form on pt's chart in the event pt is discharged back to [facility] today. Kay Allen NAVAL ENGINEER, [employer]
[2019-08-06 16:20] LABS: Bedside Glucose 155 mg/dL (70-110)
--- NOTE | 2019-08-06 19:59 | PCM.PN.SRG ---
Subjective: Postop #2 Patient is resting comfortably. - Physical Exam Vitals/I&O's: Vital Signs Temp Pulse Resp BP Pulse Ox 98.0 F 93 18 103/67 95 08/06/19 14:40 08/06/19 14:40 08/06/19 14:40 08/06/19 14:40 08/06/19 14:40 Oxygen Flow Rate (L/min) 2 Oxygen Delivery Method Room Air Weight: 285 lb Body Mass Index (BMI) 38.6 Finger Stick Blood Glucose 191 Intake and Output for Last 24 Hours 08/04/19 08/05/19 08/06/19 23:59 23:59 23:59 Intake Total 2106 / 2106 3179 / 3179 1829 / 1829 Output Total 2360 / 2360 3000 / 3000 2650 / 2650 Balance -254 / -254 179 / 179 -821 / -821 General: Alert, Oriented x3 HEENT: PERRLA, EOMI Oral: Moist Mucosa Neck: Supple Abdomen: Soft, Non-Distended Skin: Ulcer/ Wound - sacral wound is stable. No active bleeding noted. Redressed with Dakin's dressing. Neurological: Cranial nerves II-XII grossly intact Psych/Mental Status: Normal Affect, Appropriate Microbiology Past 72 Hours 08/04/19 10:26 Tissue - Sacral Gram Stain - Final 08/04/19 10:26 Tissue - Sacral Wound Culture - Preliminary Proteus mirabilis Gram negative vivien Gram positive vivien 08/04/19 10:26 Tissue - Bone Gram Stain - Final 08/04/19 10:26 Tissue - Bone Wound Culture - Preliminary No growth-Final to follow 08/04/19 10:26 Tissue - Bone Anaerobic Culture - Preliminary No growth in 48 hours. Pathology - pending. Laboratory Results 08/05/19 21:08: POC Glucose 183 H 08/06/19 06:00: WBC 12.5 H, RBC 3.70 L, Hgb 10.9 L, Hct 35.4 L, MCV 95.7 H, MCH 29.5, MCHC 30.8 L, RDW Std Deviation 55.8 H, RDW Coeff of Tio 15.8 H, Plt Count 320, MPV 9.5 08/06/19 06:00: Hemoglobin A1c 7.9 H 08/06/19 06:33: POC Glucose 140 H 08/06/19 11:16: POC Glucose 186 H 08/06/19 16:17: POC Glucose 155 H Current Medications Acetaminophen (Tylenol) 650 mg PO Q6H PRN PRN Reason: PAIN/FEVER Atorvastatin Calcium (Lipitor) 80 mg PO QHS [facility] Last Admin: 08/05/19 21:00 Dose: 80 mg Documented by: Diazepam (Valium) 5 mg PO 4X/DAY PRN PRN PRN Reason: SPASMS Diltiazem HCl (Cardizem) 60 mg PO TID [facility] Last Admin: 08/06/19 14:33 Dose: 60 mg Documented by: Divalproex Sodium (Depakote) 750 mg PO TID [facility] Last Admin: 08/06/19 14:33 Dose: 750 mg Documented by: Docusate Sodium (Colace) 100 mg PO BID [facility] Last Admin: 08/06/19 09:07 Dose: 100 mg Documented by: Duloxetine HCl (Cymbalta) 60 mg PO DAILY [facility] Last Admin: 08/06/19 09:07 Dose: 60 mg Documented by: Enoxaparin Sodium (Lovenox) 40 mg SC DAILY@0600 [facility] Last Admin: 08/06/19 06:36 Dose: 40 mg Documented by: Famotidine (Pepcid) 20 mg PO DAILY [facility] Last Admin: 08/06/19 09:07 Dose: 20 mg Documented by: Fen[facility]ibrate (Tricor) [facility] Last Admin: 08/06/19 09:07 Dose: 145 mg Documented by: Folic Acid (Folic Acid) 1 mg PO DAILY@0800 [facility] Last Admin: 08/06/19 09:07 Dose: 1 mg Documented by: Hydromorphone HCl (Dilaudid Inj) 1 mg IV Q4H PRN PRN PRN Reason: Pain Score 6-10/10 Lactated Ringer's () 1,000 mls @ 60 mls/hr IV .[id number] [facility] Last Admin: 08/06/19 15:20 Dose: 60 mls/hr Documented by: Sodium Chloride () 250 mls @ 15 mls/hr IV .[id number] PRN PRN Reason: Saline Flush Sodium Chloride () 250 mls @ 15 mls/hr IV .[id number] PRN PRN Reason: Additional IVPB Infusion Clindamycin Phosphate 600 mg/ (Dextrose) 54 mls @ 100 mls/hr IV Q8 [facility] Last Infusion: 08/06/19 15:04 Dose: Infused Documented by: Levofloxacin (Levaquin Iv) 500 mg in 100 mls @ 100 mls/hr IV Q24 [facility] Last Infusion: 08/06/19 11:12 Dose: Infused Documented by: Insulin Human Lispro (Humalog Kwikpen (Bkc)) 0 unit SC ACHS [facility]; Protocol Last Admin: 08/06/19 16:17 Dose: 1 u Documented by: Loperamide HCl (Imodium) 2 mg PO TID PRN PRN PRN Reason: Diarrhea Metformin HCl (Glucophage Xr) 2,000 mg [facility] Last Admin: 08/06/19 09:07 Dose: 2,000 mg Documented by: Metoprolol Tartrate (Lopressor (Beta Dana)) 100 mg PO BID [facility] Last Admin: 08/06/19 09:08 Dose: 100 mg Documented by: Multivitamins (Multivitamin) 1 tablet PO DAILY@0800 [facility] Last Admin: 08/06/19 09:08 Dose: 1 tablet Documented by: Nutritional Formula (Mike - [place] Flavor) [facility] Last Admin: 08/06/19 16:20 Dose: 1 packet Documented by: [id number] Ethyl Esters (Lovaza) 1 gm PO DAILY [facility] Last Admin: 08/06/19 09:06 Dose: 1 gm Documented by: Ondansetron HCl (Zofran) 4 mg IV Q6H PRN PRN PRN Reason: NAUSEA Oxycodone HCl (Oxyir) 10 mg PO Q4H PRN PRN PRN Reason: Pain Score 6-10/10 Last Admin: 08/06/19 11:59 Dose: 10 mg Documented by: Pantoprazole Sodium (Protonix) 20 mg PO DAILY [facility] Last Admin: 08/06/19 09:07 Dose: 20 mg Documented by: Polyethylene Glycol (Miralax) 17 gm PO DAILY [facility] Last Admin: 08/06/19 09:08 Dose: 17 gm Documented by: Promethazine HCl (Phenergan Tablet) 25 mg PO Q4H PRN PRN PRN Reason: NAUSEA/VOMITING Sodium Chloride () 10 - 40 ml IV UD PRN PRN Reason: SALINE FLUSH Sodium Hypochlorite (Dakins Solution 0.25% (1/2 Strength)) 1 applic TOPICAL BID [facility]; Protocol Last Admin: 08/06/19 09:08 Dose: 1 applicatio Documented by: Medical Necessity - Tobacco Use Smoking Status: Current every day smoker Tobacco Use: Cigarettes Assessment/Plan All Active Problems (Last Updated 12/07/17 @ 08:57 by Shira Conte) PAD (peripheral artery disease) (Acute) 1. Sacral pressure sore, Stage IV. 2. Diabetes mellitus. 3. PAD. 4. Epilepsy. 5. Smoker. 6. s/p excision sacral pressure sore, Stage IV, with partial ostectomy for osteomyelitis. Sacral wound is stable. Continue Dakin's dressing changes. Operative culture shows Proteus mirabilis, Gram negative vivien, and Gram positive vivien. He is currently on Cleocin and Levaquin. Prealbumin was 19.0. Encourage nutritional supplementation with protein to help the healing process. HgbA1c was 7.9. For any wound closure procedures with myocutaneous flaps, the HgbA1c needs to be less than 8. Due to the close proximity of the pressure sore ulcer to the anal opening, the patient is at increased risk for stool contamination that would make the ulcer worse with the need for additional operative debridements which would make the ulcer larger. The larger the ulcer makes healing much more difficult. I discussed a diverting colostomy with the patient. He wants to think about it and let me know. Encouraged patient to stop smoking as it may have deleterious effects on wound healing.
[2019-08-06 20:31] LABS: Bedside Glucose 195 mg/dL (70-110)
[2019-08-06] MEDS: Atorvastatin Calcium 80 MG Tablet PO (21:17)
[2019-08-07 02:58] VITALS: BP 110/73; PULSE 92; RESP 18; TEMP 37.9; O2SAT 94
[2019-08-07] MEDS: Acetaminophen 325 MG Tablet 650 MG PO (03:05)
[2019-08-07] MEDS: Divalproex Sodium 250 MG Tablet 750 MG PO ×3 (06:30→22:49)
[2019-08-07] MEDS: dilTIAZem 30 MG Tablet 60 MG PO ×3 (06:30→22:47)
[2019-08-07] MEDS: Enoxaparin 40 MG/0.4 ML Syringe SC (06:31)
[2019-08-07] MEDS: Insulin Lispro 100 UNIT/ML INSULN.PEN SC ×3 (06:35→22:55)
[2019-08-07 06:46] LABS: Bedside Glucose 162 mg/dL (70-110)
[2019-08-07] MEDS: DAKIN'S SOL HALF STRENGTH (=0.25%) 1 APPLIC TOPICAL ×2 (08:18→22:50)
[2019-08-07] MEDS: Lactated Ringers 1,000 ML 60 ML IV (08:51)
[2019-08-07] MEDS: Omega-3 Acid Ethyl Esters 1 GM Capsule PO (08:51)
[2019-08-07] MEDS: Docusate Sodium 100 MG Capsule PO ×2 (08:52→22:48)
[2019-08-07 09:00] VITALS: BP 119/64; PULSE 90; RESP 18; TEMP 36.8; O2SAT 95
[2019-08-07] MEDS: metFORMIN (XR) 500 MG Tablet 2000 MG PO (09:00)
[2019-08-07] MEDS: Multivitamins,Therapeutic Tablet 1 TABLET PO (09:00)
[2019-08-07] MEDS: Famotidine 20 MG Tablet PO (09:00)
[2019-08-07] MEDS: Folic Acid 1 MG Tablet PO (09:00)
[2019-08-07] MEDS: Fenofibrate 145 MG Tablet PO (09:00)
[2019-08-07] MEDS: Metoprolol Tartrate 100 MG Tablet PO ×2 (09:00→22:49)
[2019-08-07] MEDS: DULoxetine Hcl 60 MG Capsule PO (09:00)
[2019-08-07] MEDS: Pantoprazole Sodium 20 MG Tablet PO (09:00)
[2019-08-07] MEDS: Polyethylene Glycol 3350 17 GM PACKET PO (09:00)
[2019-08-07] MEDS: levoFLOXacin IV 500 MG/100 ML BAG 100 MG IV (09:57)
[2019-08-07 11:35] LABS: Bedside Glucose 148 mg/dL (70-110)
--- NOTE | 2019-08-07 11:44 | CASEMGMT ---
Social Work Note Per physician, pt is still deciding whether to have diverting colostomy or not. Physician states cultures are still growing so plan is to keep pt at [facility] today, likely discharge tomorrow. LUNA faxed updated clinicals to [facility]. LUNA placed a call to Kirstin at [facility] and updated her on above information. SW updated Kirstin, likely discharge tomorrow. Green sheet, transport form, and COVID screening tool on pt's chart. Plan: Return to [facility] once medically cleared Kay Allen [employer]IS[employer]OOF READER, HAIR SPECIALIST
[2019-08-07 14:24] VITALS: BP 115/57; PULSE 80; RESP 16; TEMP 36.8; O2SAT 95
[2019-08-07 16:11] LABS: Bedside Glucose 159 mg/dL (70-110)
--- NOTE | 2019-08-07 19:59 | PCM.PN.SRG ---
Subjective: Postop #3 Patient is resting comfortably. He is not sure about a colostomy at this time. - Physical Exam Vitals/I&O's: Vital Signs Temp Pulse Resp BP Pulse Ox 98.3 F 80 16 115/57 L 95 08/07/19 14:24 08/07/19 14:24 08/07/19 14:24 08/07/19 14:24 08/07/19 14:24 Oxygen Flow Rate (L/min) 2 Oxygen Delivery Method Room Air Weight: 285 lb 0.006 oz Body Mass Index (BMI) 38.6 Finger Stick Blood Glucose 191 Intake and Output for Last 24 Hours 08/05/19 08/06/19 08/07/19 23:59 23:59 23:59 Intake Total 3179 / 3179 1883 / 1883 1821 / 1821 Output Total 3000 / 3000 2650 / 2650 2300 / 2300 Balance 179 / 179 -767 / -767 -479 / -479 General: Alert, Oriented x3 HEENT: PERRLA, EOMI Oral: Moist Mucosa Neck: Supple Abdomen: Soft, Non-Distended Skin: Ulcer/ Wound - sacral wound is stable. Continue Dakin's dressing changes. Neurological: Cranial nerves II-XII grossly intact Psych/Mental Status: Normal Affect, Appropriate Microbiology Past 72 Hours 08/04/19 10:26 Tissue - Sacral Gram Stain - Final 08/04/19 10:26 Tissue - Sacral Wound Culture - Preliminary Proteus mirabilis Acinetobacter baumannii Corynebacterium striatum 08/04/19 10:26 Tissue - Sacral Anaerobic Culture - Final Anaerobic cocci 08/04/19 10:26 Tissue - Bone Gram Stain - Final 08/04/19 10:26 Tissue - Bone Wound Culture - Preliminary Staphylococcus aureus 08/04/19 10:26 Tissue - Bone Anaerobic Culture - Preliminary No growth in 48 hours. Laboratory Results 08/06/19 20:24: POC Glucose 195 H 08/07/19 06:34: POC Glucose 162 H 08/07/19 11:30: POC Glucose 148 H 08/07/19 16:04: POC Glucose 159 H Current Medications Acetaminophen (Tylenol) 650 mg PO Q6H PRN PRN Reason: PAIN/FEVER Last Admin: 08/07/19 03:05 Dose: 650 mg Documented by: Atorvastatin Calcium (Lipitor) 80 mg PO QHS [facility] Last Admin: 08/06/19 21:17 Dose: 80 mg Documented by: Diazepam (Valium) 5 mg PO 4X/DAY PRN PRN PRN Reason: SPASMS Diltiazem HCl (Cardizem) 60 mg PO TID [facility] Last Admin: 08/07/19 13:21 Dose: 60 mg Documented by: Divalproex Sodium (Depakote) 750 mg PO TID [facility] Last Admin: 08/07/19 13:21 Dose: 750 mg Documented by: Docusate Sodium (Colace) 100 mg PO BID [facility] Last Admin: 08/07/19 08:52 Dose: 100 mg Documented by: Duloxetine HCl (Cymbalta) 60 mg PO DAILY [facility] Last Admin: 08/07/19 09:00 Dose: 60 mg Documented by: Enoxaparin Sodium (Lovenox) 40 mg SC DAILY@0600 [facility] Last Admin: 08/07/19 06:31 Dose: 40 mg Documented by: Famotidine (Pepcid) 20 mg PO DAILY [facility] Last Admin: 08/07/19 09:00 Dose: 20 mg Documented by: Fenofibrate (Tricor) 145 mg PO DAILYCM [facility] Last Admin: 08/07/19 09:00 Dose: 145 mg Documented by: Folic Acid (Folic Acid) 1 mg PO DAILY@0800 [facility] Last Admin: 08/07/19 09:00 Dose: 1 mg Documented by: Hydromorphone HCl (Dilaudid Inj) 1 mg IV Q4H PRN PRN PRN Reason: Pain Score 6-10/10 Lactated Ringer's () 1,000 mls @ 60 mls/hr IV .[id number] [facility] Last Infusion: 08/07/19 13:55 Dose: 60 mls/hr Documented by: Sodium Chloride () 250 mls @ 15 mls/hr IV .[id number] PRN PRN Reason: Saline Flush Sodium Chloride () 250 mls @ 15 mls/hr IV .[id number] PRN PRN Reason: Additional IVPB Infusion Clindamycin Phosphate 600 mg/ (Dextrose) 54 mls @ 100 mls/hr IV Q8 [facility] Last Infusion: 08/07/19 13:55 Dose: Infused Documented by: Levofloxacin (Levaquin Iv) 500 mg in 100 mls @ 100 mls/hr IV Q24 [facility] Last Infusion: 08/07/19 10:57 Dose: Infused Documented by: Insulin Human Lispro (Humalog Kwikpen (Bkc)) 0 unit SC ACHS [facility]; Protocol Last Admin: 08/07/19 16:06 Dose: 1 u Documented by: Loperamide HCl (Imodium) 2 mg PO TID PRN PRN PRN Reason: Diarrhea Metformin HCl (Glucophage Xr) [facility] Last Admin: 08/07/19 09:00 Dose: 2,000 mg Documented by: Metoprolol Tartrate (Lopressor (Beta Dana)) 100 mg PO BID [facility] Last Admin: 08/07/19 09:00 Dose: 100 mg Documented by: Multivitamins (Multivitamin) 1 tablet PO DAILY@0800 [facility] Last Admin: 08/07/19 09:00 Dose: 1 tablet Documented by: Nutritional Formula (Mike - [place] Flavor) [facility] Last Admin: 08/07/19 16:07 Dose: 1 packet Documented by: [id number] Ethyl Esters (Lovaza) 1 gm PO DAILY [facility] Last Admin: 08/07/19 08:51 Dose: 1 gm Documented by: Ondansetron HCl (Zofran) 4 mg IV Q6H PRN PRN PRN Reason: NAUSEA Oxycodone HCl (Oxyir) 10 mg PO Q4H PRN PRN PRN Reason: Pain Score 6-10/10 Last Admin: 08/06/19 20:31 Dose: 10 mg Documented by: Pantoprazole Sodium (Protonix) 20 mg PO DAILY [facility] Last Admin: 08/07/19 09:00 Dose: 20 mg Documented by: Polyethylene Glycol (Miralax) 17 gm PO DAILY [facility] Last Admin: 08/07/19 09:00 Dose: 17 gm Documented by: Promethazine HCl (Phenergan Tablet) 25 mg PO Q4H PRN PRN PRN Reason: NAUSEA/VOMITING Sodium Chloride () 10 - 40 ml IV UD PRN PRN Reason: SALINE FLUSH Sodium Hypochlorite (Dakins Solution 0.25% (1/2 Strength)) 1 applic TOPICAL BID [facility]; Protocol Last Admin: 08/07/19 08:18 Dose: 1 applicatio Documented by: Medical Necessity - Tobacco Use Smoking Status: Current every day smoker Tobacco Use: Cigarettes Assessment/Plan All Active Problems (Last Updated 12/07/17 @ 08:57 by Shira Conte) PAD (peripheral artery disease) (Acute) 1. Sacral pressure sore, Stage IV. 2. Diabetes mellitus. 3. PAD. 4. Epilepsy. 5. Smoker. 6. s/p excision sacral pressure sore, Stage IV, with partial ostectomy for osteomyelitis. Sacral wound is stable. Continue Dakin's dressing changes. Operative culture shows Proteus mirabilis, Acinetobacter baumannii, Corynebacterium striatum, Anaerobic cocci, in the soft tissue and Staphylococcus aureus in the bone. He is currently on Cleocin and Levaquin. Will wait for sensitivities before going back to [facility] as I suspect he may need as PICC line for buttermaker IV antibiotics. Prealbumin was 19.0. Encourage nutritional supplementation with protein to help the healing process. HgbA1c was 7.9. For any wound closure procedures with myocutaneous flaps, the HgbA1c needs to be less than 8. Due to the close proximity of the pressure sore ulcer to the anal opening, the patient is at increased risk for stool contamination that would make the ulcer worse with the need for additional operative debridements which would make the ulcer larger. The larger the ulcer makes healing much more difficult. I discussed a diverting colostomy with the patient. I recommended a diverting colostomy. He is not sure about proceeding with the colostomy at this time. I told him we can further discuss it at the [facility]. If I start seeing stool contamination with the wound care, then he wound need to proceed with the colostomy. He voices understanding. Encouraged patient to stop smoking as it may have deleterious effects on wound healing.
[2019-08-07 22:46] VITALS: BP 144/104; PULSE 91; RESP 20; TEMP 36.7; O2SAT 96
[2019-08-07] MEDS: Atorvastatin Calcium 80 MG Tablet PO (22:48)
[2019-08-07 22:49] VITALS: BP 144/104; PULSE 91
[2019-08-07 23:00] VITALS: PULSE 91; RESP 20; O2SAT 96
[2019-08-07 23:00] LABS: Bedside Glucose 169 mg/dL (70-110)
[2019-08-07] MEDS: oxyCODONE 5 MG Tablet 10 MG PO (23:03)
[2019-08-08] VITALS (9 sets, daily range): BP systolic 103–123; BP diastolic 59–64; PULSE 70–94; RESP 18–20; TEMP 36.5–37.2; O2SAT 92–96
[2019-08-08] MEDS: Acetaminophen 325 MG Tablet 650 MG PO (03:20)
[2019-08-08] MEDS: Lactated Ringers 1,000 ML 60 ML IV ×2 (03:24→17:06)
[2019-08-08] MEDS: dilTIAZem 30 MG Tablet 60 MG PO ×3 (06:21→22:28)
[2019-08-08] MEDS: Divalproex Sodium 250 MG Tablet 750 MG PO ×3 (06:21→22:27)
[2019-08-08] MEDS: Enoxaparin 40 MG/0.4 ML Syringe SC (06:22)
[2019-08-08] MEDS: Insulin Lispro 100 UNIT/ML INSULN.PEN SC ×4 (06:29→23:09)
[2019-08-08 06:36] LABS: Bedside Glucose 151 mg/dL (70-110)
[2019-08-08] MEDS: 0.9% Saline Lock 10 ML Syringe IV (06:55)
[2019-08-08] MEDS: metFORMIN (XR) 500 MG Tablet 2000 MG PO (08:33)
[2019-08-08] MEDS: Multivitamins,Therapeutic Tablet 1 TABLET PO (08:33)
[2019-08-08] MEDS: Folic Acid 1 MG Tablet PO (08:34)
[2019-08-08] MEDS: Fenofibrate 145 MG Tablet PO (08:34)
[2019-08-08] MEDS: Pantoprazole Sodium 20 MG Tablet PO (11:24)
[2019-08-08] MEDS: Metoprolol Tartrate 100 MG Tablet PO ×2 (11:24→22:28)
[2019-08-08] MEDS: DAKIN'S SOL HALF STRENGTH (=0.25%) 1 APPLIC TOPICAL ×2 (11:25→22:28)
[2019-08-08] MEDS: DULoxetine Hcl 60 MG Capsule PO (11:25)
[2019-08-08] MEDS: Docusate Sodium 100 MG Capsule PO (11:26)
[2019-08-08] MEDS: Omega-3 Acid Ethyl Esters 1 GM Capsule PO (11:26)
[2019-08-08] MEDS: Famotidine 20 MG Tablet PO (11:28)
[2019-08-08 12:31] LABS: Hematocrit 36.4 % (40-54); Hemoglobin 11.3 g/dL (13.0-16.5); Mean Corpuscular Hgb 29.8 pg (27.0-32.0); Mean Platelet Vol. 9.3 fl (6.2-12.0); Platelet Count 311 K/mm3 (150-450); RBC Distribution Width CV 15.9 % (11.6-14.6); RBC Distribution Width SD 56.2 fl (35.1-43.9); Red Blood Count 3.79 M/mm3 (4.6-6.2)
[2019-08-08 12:41] LABS: Bedside Glucose 218 mg/dL (70-110)
[2019-08-08 12:49] LABS: Anion Gap 7 (5-15); BUN 24 mg/dL (7-18); BUN/Creat Ratio 25.3 RATIO (10-20); Calcium,Total 9.6 mg/dL (8.5-10.1); Chloride 103 mmol/L (98-107); Creatinine, Serum 0.95 mg/dL (0.70-1.30); EST Glomerular Filtration Rate 87 mL/min (>60); Est Glom Filt Rate - Afr Amer 105 mL/min (>60); Estimated Creatinine Clearance 94.16 ml/min; Glucose 166 mg/dL (74-106); Potassium 3.9 mmol/L (3.5-5.1); Sodium Level 136 mmol/L (136-145)
[2019-08-08] MEDS: levoFLOXacin 500 MG Tablet PO (13:17)
[2019-08-08] MEDS: metroNIDAZOLE 500 MG Tablet PO ×2 (13:19→22:28)
[2019-08-08 17:31] LABS: Bedside Glucose 163 mg/dL (70-110)
--- NOTE | 2019-08-08 17:39 | PCM.RX.CS ---
Consult Pharmacy has been consulted to manage selected antiobiotic: Vancomycin Type of Consult: New start Labs: Sodium 136 mmol/L (136-145) 08/08/19 12:20 Potassium 3.9 mmol/L (3.5-5.1) 08/08/19 12:20 Chloride 103 mmol/L (98-107) 08/08/19 12:20 Carbon Dioxide 26.0 mmol/L (21.0-32.0) 08/08/19 12:20 Anion Gap 7 (5-15) 08/08/19 12:20 BUN 24 mg/dL (7-18) H 08/08/19 12:20 Creatinine 0.95 mg/dL (0.70-1.30) 08/08/19 12:20 Est GFR (MDRD) Af Amer 105 mL/min (>60) 08/08/19 12:20 Est GFR (MDRD) Non-Af 87 mL/min (>60) 08/08/19 12:20 BUN/Creatinine Ratio 25.3 RATIO (10-20) H 08/08/19 12:20 Glucose 166 mg/dL (74-106) H 08/08/19 12:20 Microbiology: Microbiology 08/04/19 10:26 Tissue - Bone Gram Stain - Final 08/04/19 10:26 Tissue - Bone Wound Culture - Final Meth. resistant Staph. aureus 08/04/19 10:26 Tissue - Bone Anaerobic Culture - Preliminary No growth in 48 hours. 08/04/19 10:26 Tissue - Sacral Gram Stain - Final 08/04/19 10:26 Tissue - Sacral Wound Culture - Final Proteus mirabilis Acinetobacter baumannii Corynebacterium striatum 08/04/19 10:26 Tissue - Sacral Anaerobic Culture - Final Anaerobic cocci Weight used for dosin kg Estimated Creatinine Clearance: > 100 Goal Trough: 15-20 mcg/mL Pharmacy Plan for Drug Dosing: Vanc 2000mg IV q12h with trough prior to 4th dose per policy. Pharmacy Service will continue to monitor and adjust dosing as required. Follow-Up Labs: Trough Vancomycin - 08/09 @ 0647
--- NOTE | 2019-08-08 19:22 | PN.SURG_ITS ---
Subjective: Postop #4 Patient is resting comfortably. - Physical Exam Vitals/I&O's: Vital Signs Temp Pulse Resp BP Pulse Ox 98.0 F 74 18 118/60 95 08/08/19 17:23 08/08/19 17:23 08/08/19 17:23 08/08/19 17:23 08/08/19 17:23 Oxygen Flow Rate (L/min) 2 Oxygen Delivery Method Room Air Weight: 285 lb 0.006 oz Body Mass Index (BMI) 38.6 Finger Stick Blood Glucose 191 Intake and Output for Last 24 Hours 08/06/19 08/07/19 08/08/19 23:59 23:59 23:59 Intake Total 1883 / 1883 2404 / 2744 2000 Output Total 2650 / 2650 2300 / 4300 3350 / 3350 Balance -767 / -767 104 / -1556 -1349 / -1349 General: Alert, Oriented x3 HEENT: PERRLA, EOMI Oral: Moist Mucosa Neck: Supple Abdomen: Soft, Non-Distended Skin: Ulcer/ Wound - sacral wound is stable. No active bleeding. No evidence of further infection at this time. Redressed with Dakin's dressing changes. Neurological: Cranial nerves II-XII grossly intact Psych/Mental Status: Normal Affect, Appropriate Microbiology Past 72 Hours 08/04/19 10:26 Tissue - Bone Gram Stain - Final 08/04/19 10:26 Tissue - Bone Wound Culture - Final Meth. resistant Staph. aureus 08/04/19 10:26 Tissue - Bone Anaerobic Culture - Preliminary No growth in 48 hours. 08/04/19 10:26 Tissue - Sacral Gram Stain - Final 08/04/19 10:26 Tissue - Sacral Wound Culture - Final Proteus mirabilis Acinetobacter baumannii Corynebacterium striatum 08/04/19 10:26 Tissue - Sacral Anaerobic Culture - Final Anaerobic cocci Pathology - negative for acute osteomyelitis. Laboratory Results 08/07/19 22:55: POC Glucose 169 H 08/08/19 06:28: POC Glucose 151 H 08/08/19 12:20: WBC 12.0 H, RBC 3.79 L, Hgb 11.3 L, Hct 36.4 L, MCV 96.0 H, MCH 29.8, MCHC 31.0 L, RDW Std Deviation 56.2 H, RDW Coeff of Tio 15.9 H, Plt Count 311, MPV 9.3 08/08/19 12:20: Sodium 136, Potassium 3.9, Chloride 103, Carbon Dioxide 26.0, Anion Gap 7, BUN 24 H, Creatinine 0.95, Estim Creat Clear Calc 94.16, Est GFR (MDRD) Af Amer 105, Est GFR (MDRD) Non-Af 87, BUN/Creatinine Ratio 25.3 H, Glucose 166 H, Calcium 9.6 08/08/19 12:38: POC Glucose 218 H 08/08/19 17:18: POC Glucose 163 H Current Medications Acetaminophen (Tylenol) 650 mg PO Q6H PRN PRN Reason: PAIN/FEVER Last Admin: 08/08/19 03:20 Dose: 650 mg Documented by: Atorvastatin Calcium (Lipitor) 80 mg PO QHS [facility] Last Admin: 08/07/19 22:48 Dose: 80 mg Documented by: Diazepam (Valium) 5 mg PO 4X/DAY PRN PRN PRN Reason: SPASMS Diltiazem HCl (Cardizem) 60 mg PO TID [facility] Last Admin: 08/08/19 13:20 Dose: 60 mg Documented by: Divalproex Sodium (Depakote) 750 mg PO TID [facility] Last Admin: 08/08/19 13:19 Dose: 750 mg Documented by: Docusate Sodium (Colace) 100 mg PO BID [facility] Last Admin: 08/08/19 11:26 Dose: 100 mg Documented by: Duloxetine HCl (Cymbalta) 60 mg PO DAILY [facility] Last Admin: 08/08/19 11:25 Dose: 60 mg Documented by: Enoxaparin Sodium (Lovenox) 40 mg SC DAILY@0600 [facility] Last Admin: 08/08/19 06:22 Dose: 40 mg Documented by: Famotidine (Pepcid) 20 mg PO DAILY [facility] Last Admin: 08/08/19 11:28 Dose: 20 mg Documented by: [facility] ([facility]) [facility] Last Admin: 08/08/19 08:34 Dose: 145 mg Documented by: Folic Acid (Folic Acid) 1 mg PO DAILY@0800 [facility] Last Admin: 08/08/19 08:34 Dose: 1 mg Documented by: Heparin Sodium (Beef Lung) () 50 units IV UD PRN PRN Reason: PICC Line Heparin Flush Hydromorphone HCl (Dilaudid Inj) 1 mg IV Q4H PRN PRN PRN Reason: Pain Score 6-10/10 Lactated Ringer's () 1,000 mls @ 60 mls/hr IV .[id number] [facility] Last Infusion: 08/08/19 17:10 Dose: 0 mls/hr Documented by: Sodium Chloride () 250 mls @ 15 mls/hr IV .[id number] PRN PRN Reason: Saline Flush Sodium Chloride () 250 mls @ 15 mls/hr IV .[id number] PRN PRN Reason: Additional IVPB Infusion Vancomycin IV Pharmacy to Dose (1 ea/ Sodium Chloride) 500 mls @ 250 mls/hr IV X1 PRN; Protocol PRN Reason: Rx to Dose Vancomycin HCl 2,000 mg/ (Sodium Chloride) 540 mls @ 250 mls/hr IV X1 ONE Stop: 08/08/19 20:09 Last Admin: 08/08/19 17:22 Dose: 250 mls/hr Documented by: Vancomycin HCl 2,000 mg/ (Sodium Chloride) 540 mls @ 250 mls/hr IV Q12H [facility] Insulin Human Lispro (Humalog Kwikpen (Bkc)) 0 unit SC [facility]; Protocol Last Admin: 08/08/19 17:20 Dose: 1 u Documented by: Levofloxacin (Levaquin Tablet) 500 mg PO DAILY@0600 [facility] Loperamide HCl (Imodium) 2 mg PO TID PRN PRN PRN Reason: Diarrhea Metformin HCl (Glucophage Xr) [facility] Last Admin: 08/08/19 08:33 Dose: 2,000 mg Documented by: Metoprolol Tartrate (Lopressor (Beta Dana)) 100 mg PO BID [facility] Last Admin: 08/08/19 11:24 Dose: 100 mg Documented by: Metronidazole (Flagyl) 500 mg PO TID [facility] Last Admin: 08/08/19 13:19 Dose: 500 mg Documented by: Multivitamins (Multivitamin) 1 tablet PO DAILY@0800 [facility] Last Admin: 08/08/19 08:33 Dose: 1 tablet Documented by: Nutritional Formula (Mike - [place] Flavor) [facility] Last Admin: 08/08/19 17:21 Dose: 1 packet Documented by: [id number] Ethyl Esters (Lovaza) 1 gm PO DAILY [facility] Last Admin: 08/08/19 11:26 Dose: 1 gm Documented by: Ondansetron HCl (Zofran) 4 mg IV Q6H PRN PRN PRN Reason: NAUSEA Oxycodone HCl (Oxyir) 10 mg PO Q4H PRN PRN PRN Reason: Pain Score 6-10/10 Last Admin: 08/07/19 23:03 Dose: 10 mg Documented by: Pantoprazole Sodium (Protonix) 20 mg PO DAILY [facility] Last Admin: 08/08/19 11:24 Dose: 20 mg Documented by: Polyethylene Glycol (Miralax) 17 gm PO DAILY [facility] Last Admin: 08/08/19 11:26 Dose: Not Given Documented by: Promethazine HCl (Phenergan Tablet) 25 mg PO Q4H PRN PRN PRN Reason: NAUSEA/VOMITING Sodium Chloride () 10 - 40 ml IV UD PRN PRN Reason: SALINE FLUSH Last Admin: 08/08/19 06:55 Dose: 10 ml Documented by: Sodium Chloride () 10 - 40 ml IV UD PRN PRN Reason: Open End PICC Flush Sodium Chloride (0.9% Nacl (Sterile) Posiflush) 10 - 40 ml IV UD PRN PRN Reason: Port access or dressing change Sodium Hypochlorite (Dakins Solution 0.25% (1/2 Strength)) 1 applic TOPICAL BID [facility]; Protocol Last Admin: 08/08/19 11:25 Dose: 1 applicatio Documented by: Medical Necessity - Tobacco Use Smoking Status: Current every day smoker Tobacco Use: Cigarettes Assessment/Plan All Active Problems (Last Updated 12/07/17 @ 08:57 by Shira Conte) PAD (peripheral artery disease) (Acute) 1. Sacral pressure sore, Stage IV. 2. Diabetes mellitus. 3. PAD. 4. Epilepsy. 5. Smoker. 6. s/p excision sacral pressure sore, Stage IV, with partial ostectomy for osteomyelitis. Sacral wound is stable. Continue Dakin's dressing changes. Operative culture shows Proteus mirabilis, MDR Acinetobacter baumannii, Corynebacterium striatum, Anaerobic cocci, in the soft tissue and MRSA in the bone. His antibiotics were changed. The Levaquin was maintained and changed to PO. The Cleocin was stopped. Added Flagyl PO. Started IV Vancomycin and Tobramycin. A PICC line will be needed for shelter IV antibiotics. Prealbumin was 19.0. Encourage nutritional supplementation with protein to help the healing process. HgbA1c was 7.9. For any wound closure procedures with myocutaneous flaps, the HgbA1c needs to be less than 8. Due to the close proximity of the pressure sore ulcer to the anal opening, the patient is at increased risk for stool contamination that would make the ulcer worse with the need for additional operative debridements which would make the ulcer larger. The larger the ulcer makes healing much more difficult. I discussed a diverting colostomy with the patient. I recommended a diverting colostomy. He is not sure about proceeding with the colostomy at this time. I told him we can further discuss it at the Wound Center. If I start seeing stool contamination with the wound care, then he wound need to proceed with the colostomy. He voices understanding. Encouraged patient to stop smoking as it may have deleterious effects on wound healing.
[2019-08-08] MEDS: Atorvastatin Calcium 80 MG Tablet PO (22:28)
[2019-08-08] MEDS: oxyCODONE 5 MG Tablet 10 MG PO (23:03)
[2019-08-08 23:15] LABS: Bedside Glucose 195 mg/dL (70-110)
--- NOTE | 2019-08-08 23:31 | NURSING ---
08/08/[address] Nguyễn and was unable to reach him or leave voicemail on his mobile via [employer] operator in regards to pt. pulling out PICC line. Also, tried calling [phone] as number listed on whiteboard and it was a non working number at this hospital. Will reattempt to get Clive.
--- NOTE | 2019-08-09 00:27 | NURSING ---
08/09/2019 0027 Attempted to contact MD again and was unsuccessful and unable to leave VM due to inbox being full. Will try again in the morning.Will continue to monitor patient. Kylah MOCTEZUMA
[2019-08-09 02:15] VITALS: BP 114/67; PULSE 85; RESP 20; TEMP 36.7; O2SAT 95
[2019-08-09] MEDS: dilTIAZem 30 MG Tablet 60 MG PO ×3 (05:29→22:27)
[2019-08-09] MEDS: levoFLOXacin 500 MG Tablet PO (05:29)
[2019-08-09] MEDS: Enoxaparin 40 MG/0.4 ML Syringe SC (05:29)
[2019-08-09] MEDS: metroNIDAZOLE 500 MG Tablet PO ×3 (05:29→22:28)
[2019-08-09] MEDS: Divalproex Sodium 250 MG Tablet 750 MG PO ×3 (05:30→22:28)
[2019-08-09 06:46] LABS: Bedside Glucose 126 mg/dL (70-110)
--- NOTE | 2019-08-09 06:55 | NURSING ---
Called [employer] machine operator regarding need for PICC placement. They advised that they only have 1 nurse on today so it may be this evening before it can be placed. They will call when they have an idea when it can be done.
[2019-08-09 10:51] VITALS: BP 141/61; PULSE 91; RESP 20; TEMP 37.1; O2SAT 96
[2019-08-09] MEDS: Docusate Sodium 100 MG Capsule PO (11:00)
[2019-08-09 11:01] VITALS: PULSE 91
[2019-08-09] MEDS: Metoprolol Tartrate 100 MG Tablet PO ×2 (11:01→22:27)
[2019-08-09] MEDS: Folic Acid 1 MG Tablet PO (11:01)
[2019-08-09] MEDS: metFORMIN (XR) 500 MG Tablet 2000 MG PO (11:01)
[2019-08-09] MEDS: Famotidine 20 MG Tablet PO (11:02)
[2019-08-09] MEDS: DULoxetine Hcl 60 MG Capsule PO (11:02)
[2019-08-09] MEDS: Omega-3 Acid Ethyl Esters 1 GM Capsule PO (11:02)
[2019-08-09] MEDS: Polyethylene Glycol 3350 17 GM PACKET PO (11:02)
[2019-08-09] MEDS: Pantoprazole Sodium 20 MG Tablet PO (11:02)
[2019-08-09] MEDS: Multivitamins,Therapeutic Tablet 1 TABLET PO (11:03)
[2019-08-09] MEDS: Fenofibrate 145 MG Tablet PO (11:03)
[2019-08-09] MEDS: DAKIN'S SOL HALF STRENGTH (=0.25%) 1 APPLIC TOPICAL ×2 (11:04→22:07)
--- NOTE | 2019-08-09 11:38 | NURSING ---
aware per receptionist doctor's office there is a delay in service for the area for picc placement, they will call when they have an approximate time for placement
[2019-08-09 11:51] LABS: Bedside Glucose 118 mg/dL (70-110)
--- NOTE | 2019-08-09 12:02 | NURSING ---
Taylor his significant other called for an update on pt and was informed that pt pulled PICC line out last night. Taylor stated that he has done that before at the other hospital and they had to use mittens or tie him down. She thinks that if we put it in again (the picc line) pt will pull it out again.
--- NOTE | 2019-08-09 13:38 | PN.SURG_ITS ---
Subjective: Postop #5 Patient is resting comfortably. - Physical Exam Vitals/I&O's: Vital Signs Temp Pulse Resp BP Pulse Ox 98.7 F 91 20 H 141/61 H 96 08/09/19 10:51 08/09/19 11:01 08/09/19 10:51 08/09/19 10:51 08/09/19 10:51 Oxygen Flow Rate (L/min) 2 Oxygen Delivery Method Room Air Weight: 285 lb 0.006 oz Body Mass Index (BMI) 38.6 Finger Stick Blood Glucose 191 Intake and Output for Last 24 Hours 08/07/19 08/08/19 08/09/19 23:59 23:59 23:59 Intake Total 2404 / 2744 2604.5 / 2604.5 540 / 540 Output Total 2300 / 4300 3350 / 3350 1425 / 1425 Balance 104 / -1556 -745.5 / -745.5 -885 / -885 General: Alert, Oriented x3 HEENT: PERRLA, EOMI Oral: Moist Mucosa Neck: Supple Abdomen: Soft, Non-Distended Skin: Ulcer/ Wound - sacral pressure sore is stable. No active bleeding. No evidence of residual infection at this time. The ulcer was redressed with Dakin's dressing changes. Neurological: Cranial nerves II-XII grossly intact Psych/Mental Status: Normal Affect, Appropriate Microbiology Past 72 Hours 08/04/19 10:26 Tissue - Bone Gram Stain - Final 08/04/19 10:26 Tissue - Bone Wound Culture - Final Meth. resistant Staph. aureus 08/04/19 10:26 Tissue - Bone Anaerobic Culture - Preliminary No growth in 48 hours. 08/04/19 10:26 Tissue - Sacral Gram Stain - Final 08/04/19 10:26 Tissue - Sacral Wound Culture - Final Proteus mirabilis Acinetobacter baumannii Corynebacterium striatum 08/04/19 10:26 Tissue - Sacral Anaerobic Culture - Final Anaerobic cocci Pathology - negative for acute osteomyelitis. Laboratory Results 08/08/19 17:18: POC Glucose 163 H 08/08/19 23:08: POC Glucose 195 H 08/09/19 06:37: POC Glucose 126 H 08/09/19 11:40: POC Glucose 118 H 08/09/19 12:30: Random Tobramycin Pending Current Medications Acetaminophen (Tylenol) 650 mg PO Q6H PRN PRN Reason: PAIN/FEVER Last Admin: 08/08/19 03:20 Dose: 650 mg Documented by: Atorvastatin Calcium (Lipitor) 80 mg PO QHS [facility] Last Admin: 08/08/19 22:28 Dose: 80 mg Documented by: Diazepam (Valium) 5 mg PO 4X/DAY PRN PRN PRN Reason: SPASMS Diltiazem HCl (Cardizem) 60 mg PO TID [facility] Last Admin: 08/09/19 05:29 Dose: 60 mg Documented by: Divalproex Sodium (Depakote) 750 mg PO TID [facility] Last Admin: 08/09/19 05:30 Dose: 750 mg Documented by: Docusate Sodium (Colace) 100 mg PO BID [facility] Last Admin: 08/09/19 11:00 Dose: 100 mg Documented by: Duloxetine HCl (Cymbalta) 60 mg PO DAILY [facility] Last Admin: 08/09/19 11:02 Dose: 60 mg Documented by: Enoxaparin Sodium (Lovenox) 40 mg SC DAILY@0600 [facility] Last Admin: 08/09/19 05:29 Dose: 40 mg Documented by: Famotidine (Pepcid) 20 mg PO DAILY [facility] Last Admin: 08/09/19 11:02 Dose: 20 mg Documented by: Fenofibrate (Tricor) 145 mg PO DAILYCM [facility] Last Admin: 08/09/19 11:03 Dose: 145 mg Documented by: Folic Acid (Folic Acid) 1 mg PO DAILY@0800 [facility] Last Admin: 08/09/19 11:01 Dose: 1 mg Documented by: Heparin Sodium (Beef Lung) () 50 units IV UD PRN PRN Reason: PICC Line Heparin Flush Hydromorphone HCl (Dilaudid Inj) 1 mg IV Q4H PRN PRN PRN Reason: Pain Score 6-10/10 Lactated Ringer's () 1,000 mls @ 60 mls/hr IV .[id number] [facility] Last Infusion: 08/09/19 07:40 Dose: 60 mls/hr Documented by: Sodium Chloride () 250 mls @ 15 mls/hr IV .[id number] PRN PRN Reason: Saline Flush Sodium Chloride () 250 mls @ 15 mls/hr IV .[id number] PRN PRN Reason: Additional IVPB Infusion Vancomycin IV Pharmacy to Dose (1 ea/ Sodium Chloride) 500 mls @ 250 mls/hr IV X1 PRN; Protocol PRN Reason: Rx to Dose Vancomycin HCl 2,000 mg/ (Sodium Chloride) 540 mls @ 250 mls/hr IV Q12H [facility] Last Infusion: 08/09/19 07:45 Dose: Infused Documented by: Tobramycin Sulfate 540 mg/ (Dextrose) 63.5 mls @ 100 mls/hr IV Q24H [facility] Insulin Human Lispro (Humalog Kwikpen (Bkc)) 0 unit SC ACHS [facility]; Protocol Last Admin: 08/09/19 11:41 Dose: Not Given Documented by: Levofloxacin (Levaquin Tablet) 500 mg PO DAILY@0600 [facility] Last Admin: 08/09/19 05:29 Dose: 500 mg Documented by: Loperamide HCl (Imodium) 2 mg PO TID PRN PRN PRN Reason: Diarrhea [facility]) [facility] Last Admin: 08/09/19 11:01 Dose: 2,000 mg Documented by: Metoprolol Tartrate (Lopressor (Beta Dana)) 100 mg PO BID [facility] Last Admin: 08/09/19 11:01 Dose: 100 mg Documented by: Metronidazole (Flagyl) 500 mg PO TID [facility] Last Admin: 08/09/19 05:29 Dose: 500 mg Documented by: Multivitamins (Multivitamin) 1 tablet PO DAILY@0800 [facility] Last Admin: 08/09/19 11:03 Dose: 1 tablet Documented by: Nutritional Formula (Mike - [place] Flavor) [facility] Last Admin: 08/09/19 11:00 Dose: 1 packet Documented by: [id number] Ethyl Esters (Lovaza) 1 gm PO DAILY [facility] Last Admin: 08/09/19 11:02 Dose: 1 gm Documented by: Ondansetron HCl (Zofran) 4 mg IV Q6H PRN PRN PRN Reason: NAUSEA Oxycodone HCl (Oxyir) 10 mg PO Q4H PRN PRN PRN Reason: Pain Score 6-10/10 Last Admin: 08/08/19 23:03 Dose: 10 mg Documented by: Pantoprazole Sodium (Protonix) 20 mg PO DAILY [facility] Last Admin: 08/09/19 11:02 Dose: 20 mg Documented by: Polyethylene Glycol (Miralax) 17 gm PO DAILY [facility] Last Admin: 08/09/19 11:02 Dose: 17 gm Documented by: Promethazine HCl (Phenergan Tablet) 25 mg PO Q4H PRN PRN PRN Reason: NAUSEA/VOMITING Sodium Chloride () 10 - 40 ml IV UD PRN PRN Reason: SALINE FLUSH Last Admin: 08/08/19 06:55 Dose: 10 ml Documented by: Sodium Chloride () 10 - 40 ml IV UD PRN PRN Reason: Open End PICC Flush Sodium Chloride (0.9% Nacl (Sterile) Posiflush) 10 - 40 ml IV UD PRN PRN Reason: Port access or dressing change Sodium Hypochlorite (Dakins Solution 0.25% (1/2 Strength)) 1 applic TOPICAL BID [facility]; Protocol Last Admin: 08/09/19 11:04 Dose: 1 applicatio Documented by: Medical Necessity - Tobacco Use Smoking Status: Current every day smoker Tobacco Use: Cigarettes Assessment/Plan All Active Problems (Last Updated 12/07/17 @ 08:57 by Shira Conte) PAD (peripheral artery disease) (Acute) 1. Sacral pressure sore, Stage IV. 2. Diabetes mellitus. 3. PAD. 4. Epilepsy. 5. Smoker. 6. s/p excision sacral pressure sore, Stage IV, with partial ostectomy for osteomyelitis. 7. MRSA. 8. MDR Acinetobacter baumannii. 9. Chronic MRSA osteomyelitis. Sacral wound is stable. Continue Dakin's dressing changes. Operative culture shows Proteus mirabilis, MDR Acinetobacter baumannii, Corynebacterium striatum, Anaerobic cocci, in the soft tissue and MRSA in the bone. Continue Vancomycin and Tobramycin IV and Levaquin and Flagyl PO. A PICC line was placed yesterday, but he pulled it out last night. Another PICC line will be placed. In the meantime, a peripheral IV was placed. Pathology was negative for acute osteomyelitis. However, the bone culture showed MRSA. MRSA didn't show up in the soft tissue culture so it's consistent with chronic osteomyelitis. Prealbumin was 19.0. Encourage nutritional supplementation with protein to help the healing process. HgbA1c was 7.9. For any wound closure procedures with myocutaneous flaps, the HgbA1c needs to be less than 8. Due to the close proximity of the pressure sore ulcer to the anal opening, the patient is at increased risk for stool contamination that would make the ulcer worse with the need for additional operative debridements which would make the ulcer larger. The larger the ulcer makes healing much more difficult. I discussed a diverting colostomy with the patient. I recommended a diverting colostomy. He is not sure about proceeding with the colostomy at this time. I told him we can further discuss it at the Wound Center. If I start seeing stool contamination with the wound care, then he wound need to proceed with the colostomy. He voices understanding. Encouraged patient to stop smoking as it may have deleterious effects on wound healing.
--- NOTE | 2019-08-09 16:47 | NURSING ---
called import export coordinator, aware they are still working on getting a nurse to place PICC but they are unsure if they will be able to place it today
[2019-08-09] MEDS: Insulin Lispro 100 UNIT/ML INSULN.PEN SC ×2 (18:02→22:27)
[2019-08-09 18:12] VITALS: BP 100/58; PULSE 99; RESP 20; TEMP 36.6; O2SAT 100
[2019-08-09 18:56] LABS: Bedside Glucose 169 mg/dL (70-110)
--- NOTE | 2019-08-09 20:12 | NURSING ---
Dr. Nguyễn made aware that pt took out his iv again. Dr. Nguyễn said to leave out if can not get access and wait until tomorrow 08/09 when seat joiner chainstitch can come and insert PPICC line. Dr. Nguyễn also made aware that pt is very sleepy today and seems confused. No orders at this time. Continue to monitor pt .
[2019-08-09 22:07] VITALS: BP 154/69; PULSE 97; RESP 18; TEMP 36.8; O2SAT 93
[2019-08-09 22:27] VITALS: PULSE 97
[2019-08-09] MEDS: Atorvastatin Calcium 80 MG Tablet PO (22:28)
[2019-08-09 23:06] LABS: Bedside Glucose 180 mg/dL (70-110)
[2019-08-10] MEDS: Loperamide 2 MG Capsule PO (02:48)
[2019-08-10] MEDS: Acetaminophen 325 MG Tablet 650 MG PO (02:48)
[2019-08-10 02:55] VITALS: BP 133/64; PULSE 88; RESP 19; TEMP 36.8; O2SAT 97
[2019-08-10] MEDS: metroNIDAZOLE 500 MG Tablet PO ×3 (05:28→22:19)
[2019-08-10] MEDS: Divalproex Sodium 250 MG Tablet 750 MG PO ×3 (05:28→22:19)
[2019-08-10] MEDS: levoFLOXacin 500 MG Tablet PO (05:29)
[2019-08-10] MEDS: Enoxaparin 40 MG/0.4 ML Syringe SC (05:29)
[2019-08-10] MEDS: dilTIAZem 30 MG Tablet 60 MG PO ×3 (05:29→22:20)
[2019-08-10 06:45] LABS: Bedside Glucose 114 mg/dL (70-110)
[2019-08-10 06:57] LABS: Hematocrit 38.9 % (40-54); Hemoglobin 11.7 g/dL (13.0-16.5); Mean Corp Hgb Conc 30.1 g/dL (32-36); Mean Corpuscular Hgb 28.9 pg (27.0-32.0); Mean Platelet Vol. 9.5 fl (6.2-12.0); Platelet Count 371 K/mm3 (150-450); RBC Distribution Width CV 15.9 % (11.6-14.6); RBC Distribution Width SD 57.1 fl (35.1-43.9); Red Blood Count 4.05 M/mm3 (4.6-6.2); White Blood Count 10.2 K/mm3 (4.4-11.0)
[2019-08-10 07:18] LABS: Anion Gap 7 (5-15); BUN 20 mg/dL (7-18); BUN/Creat Ratio 25.3 RATIO (10-20); Calcium,Total 9.7 mg/dL (8.5-10.1); Chloride 105 mmol/L (98-107); Creatinine, Serum 0.79 mg/dL (0.70-1.30); EST Glomerular Filtration Rate 107 mL/min (>60); Est Glom Filt Rate - Afr Amer 129 mL/min (>60); Estimated Creatinine Clearance 113.23 ml/min; Glucose 120 mg/dL (74-106); Potassium 3.8 mmol/L (3.5-5.1); Sodium Level 137 mmol/L (136-145)
[2019-08-10 09:38] VITALS: BP 137/59; PULSE 83; RESP 22; TEMP 36.8; O2SAT 96
[2019-08-10] MEDS: metFORMIN (XR) 500 MG Tablet 2000 MG PO (09:40)
[2019-08-10] MEDS: Omega-3 Acid Ethyl Esters 1 GM Capsule PO (09:41)
[2019-08-10] MEDS: Pantoprazole Sodium 20 MG Tablet PO (09:41)
[2019-08-10] MEDS: DULoxetine Hcl 60 MG Capsule PO (09:41)
[2019-08-10] MEDS: Famotidine 20 MG Tablet PO (09:41)
[2019-08-10] MEDS: Folic Acid 1 MG Tablet PO (09:41)
[2019-08-10 09:42] VITALS: PULSE 83
[2019-08-10] MEDS: Metoprolol Tartrate 100 MG Tablet PO ×2 (09:42→22:21)
[2019-08-10] MEDS: Multivitamins,Therapeutic Tablet 1 TABLET PO (09:43)
[2019-08-10] MEDS: Fenofibrate 145 MG Tablet PO (09:44)
[2019-08-10] MEDS: oxyCODONE 5 MG Tablet 10 MG PO (11:18)
[2019-08-10] MEDS: DAKIN'S SOL HALF STRENGTH (=0.25%) 1 APPLIC TOPICAL ×2 (11:19→22:23)
[2019-08-10] MEDS: Insulin Lispro 100 UNIT/ML INSULN.PEN SC (11:31)
[2019-08-10 11:36] LABS: Bedside Glucose 168 mg/dL (70-110)
--- NOTE | 2019-08-10 12:12 | NURSING ---
Addendum entered by Kelly Emery 08/10/19 12:19: obtained consent via phone for PICC to be inserted. Original Note: Nurse from [employer] engineer here and attempted to call Martha PARKS of [facility] [facility] and was unable to reach her with the phone number provided in the contacts. This nurse was able to get her phone number from the number she left me yesterday. This nurse along with Sharona Paulson Rn obtained consent for the PICC line to be inserted.
--- NOTE | 2019-08-10 12:47 | NURSING ---
Stefan [facility] Pharmacist talked with this nurse about getting Zyvoxx po ordered on pt, since he pulled out his PICC line and peripheral Iv's as well making it hard to keep track of Vancomycin levels. Dr. Nguyễn okgrayson'ed to have patient take Zyvoxx BID po and Tobramycin IV. So PICC is still needed for Tobramycin.
[2019-08-10 15:13] VITALS: BP 115/64; PULSE 90; RESP 18; TEMP 37.4; O2SAT 97
[2019-08-10] MEDS: Lactated Ringers 1,000 ML 60 ML IV (16:38)
--- NOTE | 2019-08-10 16:50 | PN.SURG_ITS ---
Subjective: Postop #6 Patient is resting comfortably. - Physical Exam Vitals/I&O's: Vital Signs Temp Pulse Resp BP Pulse Ox 99.3 F H 90 18 115/64 97 08/10/19 15:13 08/10/19 15:13 08/10/19 15:13 08/10/19 15:13 08/10/19 15:13 Oxygen Flow Rate (L/min) 2 Oxygen Delivery Method Room Air Weight: 285 lb 0.006 oz Body Mass Index (BMI) 38.6 Finger Stick Blood Glucose 191 Intake and Output for Last 24 Hours 08/08/19 08/09/19 08/10/19 23:59 23:59 23:59 Intake Total 2604.5 / 2604.5 2062 / 2062 900 / 900 Output Total 3350 / 3350 2325 / 2325 1525 / 1525 Balance -745.5 / -745.5 -263 / -263 -625 / -625 General: Alert, Oriented x3 HEENT: PERRLA, EOMI Oral: Moist Mucosa Neck: Supple Abdomen: Soft, Non-Distended Skin: Ulcer/ Wound - sacral pressure sore is stable. No active bleeding. No evidence of residual infection at this time. The ulcer was redressed with Dakin's dressing changes. Psych/Mental Status: Appropriate Microbiology Past 72 Hours 08/04/19 10:26 Tissue - Bone Gram Stain - Final 08/04/19 10:26 Tissue - Bone Wound Culture - Final Meth. resistant Staph. aureus 08/04/19 10:26 Tissue - Bone Anaerobic Culture - Final No growth in 5 days. 08/04/19 10:26 Tissue - Sacral Gram Stain - Final 08/04/19 10:26 Tissue - Sacral Wound Culture - Final Proteus mirabilis Acinetobacter baumannii Corynebacterium striatum 08/04/19 10:26 Tissue - Sacral Anaerobic Culture - Final Anaerobic cocci Laboratory Results 08/09/19 18:00: POC Glucose 169 H 08/09/19 22:05: POC Glucose 180 H 08/10/19 06:00: WBC 10.2, RBC 4.05 L, Hgb 11.7 L, Hct 38.9 L, MCV 96.0 H, MCH 28.9, MCHC 30.1 L, RDW Std Deviation 57.1 H, RDW Coeff of Tio 15.9 H, Plt Count 371, MPV 9.5 08/10/19 06:00: Sodium 137, Potassium 3.8, Chloride 105, Carbon Dioxide 25.0, Anion Gap 7, BUN 20 H, Creatinine 0.79, Estim Creat Clear Calc 113.23, Est GFR (MDRD) Af Amer 129, Est GFR (MDRD) Non-Af 107, BUN/Creatinine Ratio 25.3 H, Glucose 120 H, Calcium 9.7 08/10/19 06:39: POC Glucose 114 H 08/10/19 11:31: POC Glucose 168 H Pathology - negative for acute osteomyelitis. Current Medications Acetaminophen (Tylenol) 650 mg PO Q6H PRN PRN Reason: PAIN/FEVER Last Admin: 08/10/19 02:48 Dose: 650 mg Documented by: Atorvastatin Calcium (Lipitor) 80 mg PO QHS [facility] Last Admin: 08/09/19 22:28 Dose: 80 mg Documented by: Diazepam (Valium) 5 mg PO 4X/DAY PRN PRN PRN Reason: SPASMS Diltiazem HCl (Cardizem) 60 mg PO TID [facility] Last Admin: 08/10/19 15:16 Dose: 60 mg Documented by: Divalproex Sodium (Depakote) 750 mg PO TID [facility] Last Admin: 08/10/19 15:16 Dose: 750 mg Documented by: Docusate Sodium (Colace) 100 mg PO BID [facility] Last Admin: 08/10/19 09:40 Dose: Not Given Documented by: Duloxetine HCl (Cymbalta) 60 mg PO DAILY [facility] Last Admin: 08/10/19 09:41 Dose: 60 mg Documented by: Enoxaparin Sodium (Lovenox) 40 mg SC DAILY@0600 [facility] Last Admin: 08/10/19 05:29 Dose: 40 mg Documented by: Famotidine (Pepcid) 20 mg PO DAILY [facility] Last Admin: 08/10/19 09:41 Dose: 20 mg Documented by: [facility] Last Admin: 08/10/19 09:44 Dose: 145 mg Documented by: Folic Acid (Folic Acid) 1 mg PO DAILY@0800 [facility] Last Admin: 08/10/19 09:41 Dose: 1 mg Documented by: Heparin Sodium (Beef Lung) () 50 units IV UD PRN PRN Reason: PICC Line Heparin Flush Hydromorphone HCl (Dilaudid Inj) 1 mg IV Q4H PRN PRN PRN Reason: Pain Score 6-10/10 Lactated Ringer's () 1,000 mls @ 60 mls/hr IV .[id number] [facility] Last Admin: 08/10/19 16:38 Dose: 60 mls/hr Documented by: Sodium Chloride () 250 mls @ 15 mls/hr IV .[id number] PRN PRN Reason: Saline Flush Sodium Chloride () 250 mls @ 15 mls/hr IV .[id number] PRN PRN Reason: Additional IVPB Infusion Vancomycin IV Pharmacy to Dose (1 ea/ Sodium Chloride) 500 mls @ 250 mls/hr IV X1 PRN; Protocol PRN Reason: Rx to Dose Tobramycin Sulfate 540 mg/ (Dextrose) 63.5 mls @ 100 mls/hr IV Q24H [facility] Last Admin: 08/09/19 21:24 Dose: Not Given Documented by: Insulin Human Lispro (Humalog Kwikpen (Bkc)) 0 unit SC [facility]; Protocol Last Admin: 08/10/19 16:41 Dose: Not Given Documented by: Levofloxacin (Levaquin Tablet) 500 mg PO DAILY@0600 [facility] Last Admin: 08/10/19 05:29 Dose: 500 mg Documented by: Linezolid (Zyvox) 600 mg PO BID [facility] Loperamide HCl (Imodium) 2 mg PO TID PRN PRN PRN Reason: Diarrhea Last Admin: 08/10/19 02:48 Dose: 2 mg Documented by: Metformin HCl ([facility]ucophage [facility]) [facility] Last Admin: 08/10/19 09:40 Dose: 2,000 mg Documented by: Metoprolol Tartrate (Lopressor (Beta Dana)) 100 mg PO BID [facility] Last Admin: 08/10/19 09:42 Dose: 100 mg Documented by: Metronidazole (Flagyl) 500 mg PO TID [facility] Last Admin: 08/10/19 15:16 Dose: 500 mg Documented by: Multivitamins (Multivitamin) 1 tablet PO DAILY@0800 [facility] Last Admin: 08/10/19 09:43 Dose: 1 tablet Documented by: Nutritional Formula (Mike - [place] Flavor) [facility] Last Admin: 08/10/19 16:39 Dose: Not Given Documented by: [id number] Ethyl Esters (Lovaza) 1 gm PO DAILY [facility] Last Admin: 08/10/19 09:41 Dose: 1 gm Documented by: Ondansetron HCl (Zofran) 4 mg IV Q6H PRN PRN PRN Reason: NAUSEA Oxycodone HCl (Oxyir) 10 mg PO Q4H PRN PRN PRN Reason: Pain Score 4-5/10 Last Admin: 08/10/19 11:18 Dose: 10 mg Documented by: Pantoprazole Sodium (Protonix) 20 mg PO DAILY [facility] Last Admin: 08/10/19 09:41 Dose: 20 mg Documented by: Polyethylene Glycol (Miralax) 17 gm PO DAILY [facility] Last Admin: 08/10/19 09:40 Dose: Not Given Documented by: Promethazine HCl (Phenergan Tablet) 25 mg PO Q4H PRN PRN PRN Reason: NAUSEA/VOMITING Sodium Chloride () 10 - 40 ml IV UD PRN PRN Reason: SALINE FLUSH Last Admin: 08/08/19 06:55 Dose: 10 ml Documented by: Sodium Chloride () 10 - 40 ml IV UD PRN PRN Reason: Open End PICC Flush Sodium Chloride (0.9% Nacl (Sterile) Posiflush) 10 - 40 ml IV UD PRN PRN Reason: Port access or dressing change Sodium Hypochlorite (Dakins Solution 0.25% (1/2 Strength)) 1 applic TOPICAL BID [facility]; Protocol Last Admin: 08/10/19 11:19 Dose: 1 applicatio Documented by: Medical Necessity - Tobacco Use Smoking Status: Current every day smoker Tobacco Use: Cigarettes Assessment/Plan All Active Problems (Last Updated 12/07/17 @ 08:57 by Shira Conte) PAD (peripheral artery disease) (Acute) 1. Sacral pressure sore, Stage IV. 2. Diabetes mellitus. 3. PAD. 4. Epilepsy. 5. Smoker. 6. s/p excision sacral pressure sore, Stage IV, with partial ostectomy for osteomyelitis. 7. MRSA. 8. MDR Acinetobacter baumannii. 9. Chronic MRSA osteomyelitis. Sacral wound is stable. Continue Dakin's dressing changes. Operative culture shows Proteus mirabilis, MDR Acinetobacter baumannii, Corynebacterium striatum, Anaerobic cocci, in the soft tissue and MRSA in the bone. Continue Tobramycin IV and Levaquin and Flagyl PO. Will change the Vancomycin to Zyvox PO because he pulled out his IV. Awaiting replacement of another PICC line. Pathology was negative for acute osteomyelitis. However, the bone culture showed MRSA. MRSA didn't show up in the soft tissue culture so it's consistent with chronic osteomyelitis. Prealbumin was 19.0. Encourage nutritional supplementation with protein to help the healing process. HgbA1c was 7.9. For any wound closure procedures with myocutaneous flaps, the HgbA1c needs to be less than 8. Due to the close proximity of the pressure sore ulcer to the anal opening, the patient is at increased risk for stool contamination that would make the ulcer worse with the need for additional operative debridements which would make the ulcer larger. The larger the ulcer makes healing much more difficult. I discussed a diverting colostomy with the patient. I recommended a diverting colostomy. He is not sure about proceeding with the colostomy at this time. I told him we can further discuss it at the Wound Center. If I start seeing stool contamination with the wound care, then he wound need to proceed with the colostomy. He voices understanding. Encouraged patient to stop smoking as it may have deleterious effects on wound healing.
[2019-08-10 17:00] LABS: Bedside Glucose 131 mg/dL (70-110)
[2019-08-10 20:03] VITALS: BP 129/66; PULSE 90; RESP 19; TEMP 36.5; O2SAT 95
[2019-08-10] MEDS: Linezolid 600 MG Tablet PO (22:18)
[2019-08-10 22:21] VITALS: PULSE 92
[2019-08-10] MEDS: Atorvastatin Calcium 80 MG Tablet PO (22:21)
[2019-08-10] MEDS: 0.9% Saline Lock 10 ML Syringe IV (22:46)
[2019-08-10] MEDS: HYDROmorphone 1 MG/ML Syringe IV (22:46)
[2019-08-10 23:10] LABS: Bedside Glucose 147 mg/dL (70-110)
[2019-08-11 02:00] VITALS: BP 114/66; PULSE 100; RESP 20; TEMP 36.8; O2SAT 99
[2019-08-11] MEDS: dilTIAZem 30 MG Tablet 60 MG PO ×3 (06:10→21:39)
[2019-08-11] MEDS: Divalproex Sodium 250 MG Tablet 750 MG PO ×3 (06:11→21:39)
[2019-08-11] MEDS: metroNIDAZOLE 500 MG Tablet PO ×3 (06:12→21:39)
[2019-08-11] MEDS: Enoxaparin 40 MG/0.4 ML Syringe SC (06:13)
[2019-08-11] MEDS: levoFLOXacin 500 MG Tablet PO (06:13)
[2019-08-11 06:35] LABS: Bedside Glucose 128 mg/dL (70-110)
[2019-08-11 08:00] VITALS: BP 117/70; PULSE 86; RESP 18; TEMP 36.3; O2SAT 98
[2019-08-11] MEDS: metFORMIN (XR) 500 MG Tablet 2000 MG PO (08:47)
[2019-08-11] MEDS: Lactated Ringers 1,000 ML 60 ML IV (08:47)
[2019-08-11] MEDS: Folic Acid 1 MG Tablet PO (08:47)
[2019-08-11 08:48] VITALS: PULSE 86
[2019-08-11] MEDS: Metoprolol Tartrate 100 MG Tablet PO ×2 (08:48→21:41)
[2019-08-11] MEDS: DAKIN'S SOL HALF STRENGTH (=0.25%) 1 APPLIC TOPICAL ×2 (08:48→21:41)
[2019-08-11] MEDS: Fenofibrate 145 MG Tablet PO (08:48)
[2019-08-11] MEDS: Multivitamins,Therapeutic Tablet 1 TABLET PO (08:48)
[2019-08-11] MEDS: Pantoprazole Sodium 20 MG Tablet PO (08:49)
[2019-08-11] MEDS: Famotidine 20 MG Tablet PO (08:49)
[2019-08-11] MEDS: Linezolid 600 MG Tablet PO ×2 (08:49→21:39)
[2019-08-11] MEDS: Omega-3 Acid Ethyl Esters 1 GM Capsule PO (08:49)
--- NOTE | 2019-08-11 10:45 | NURSING ---
wound photo: sacrum
[2019-08-11 11:51] LABS: Bedside Glucose 126 mg/dL (70-110)
[2019-08-11 14:00] VITALS: BP 120/66; PULSE 88; RESP 18; TEMP 36.3; O2SAT 98
--- NOTE | 2019-08-11 14:23 | PCM.HP.ID ---
Reason for Consult: Deep sacral pressure ulcer with concern of infection Consulted by: Dr. Nguyễn History of Present Illness: The patient is a 58 year old M [] This a 58-year-old gentleman with multiple comorbidities including a seizure disorder, lower extremity weakness and is unable to ambulate for the past 2-1/2 years and resides in an extended care facility, patient underwent surgical debridement of a chronic pressure ulcer of the sacrum on August 03. Operative note reviewed and intraoperative cultures were also reviewed. Patient is currently alert in no acute distress. No fevers or chills no significant constitutional symptoms. He does have a chronic Chakraborty catheter in place. He is currently on multiple antimicrobial agents I had the opportunity review his medication list. - Medical History Past Medical History (Chronic Problems): Chronic Problems (Last Updated 12/07/17 @ 08:57 by Shira Conte) Epilepsy (Chronic) Diabetes mellitus (Chronic) Smoker (Chronic) Pressure ulcer of sacral region, stage 4 (Chronic) Allergies/Adverse Reactions: Allergies Penicillins Allergy (Mild, Verified 08/04/19 07:11) rash Home Medications: Ambulatory Orders Medication Instructions Recorded Atorvastatin Calcium [Lipitor] 80 mg PO DAILY 03/26/18 Acetaminophen [Tylenol] 650 mg PO Q6H PRN 07/21/19 Cimetidine [Tagamet Hb] 100 mg PO DAILY 07/21/19 Diltiazem HCl 60 mg PO TID 07/21/19 Docusate Sodium [Colace] 100 mg PO BID 07/21/19 Duloxetine Hcl [Cymbalta] 60 mg PO DAILY 07/21/19 Fenofibrate [Tricor] 145 mg PO DAILY 07/21/19 Folic Acid 1 mg PO DAILY 07/21/19 Loperamide HCl [Imodium A-D] 2 mg PO PRN PRN 07/21/19 Metformin HCl 2,000 mg PO DAILY 07/21/19 Metoprolol Tartrate [Lopressor] 100 mg PO BID 07/21/19 Multivitamin 1 tab PO DAILY 07/21/19 Nystatin Powder [Mycostatin Powder] 1 applic TOPICAL BID 07/21/19 [place]-3 Fatty Acids/Fish Oil [Fish 1 ea PO DAILY 07/21/19 Oil 1,000 mg Capsule] Omeprazole 20 mg PO DAILY 07/21/19 Polyethylene Glycol 3350 [Miralax] 17 gm PO DAILY 07/21/19 Valproic Acid 750 mg PO TID 07/21/19 Argin/Glut/Cahmb/Collag/Mv-Min 1 ea PO BID 08/01/19 [Mike Packet] Aspirin [Aspirin, Baby] 81 mg PO DAILY@0800 08/04/19 Vital Signs Temp Pulse Resp BP Pulse Ox 97.4 F L 86 18 117/70 98 08/11/19 08:00 08/11/19 08:48 08/11/19 08:00 08/11/19 08:00 08/11/19 08:00 Oxygen Flow Rate (L/min) 2 Oxygen Delivery Method Room Air Weight: 129.274 kg Body Mass Index (BMI) 38.6 Finger Stick Blood Glucose 191 Patient is alert conversant in no acute distress lungs are clear heart exam S1-S2 abdomen is obese but soft. Patient does have a PICC line in his left arm. Chakraborty catheter is in place. I did attempt to examine his sacral area with the help of nursing staff. Microbiology Past 72 Hours 08/04/19 10:26 Gram Stain - Final Tissue - Bone Wound Culture - Final Meth. resistant Staph. aureus Anaerobic Culture - Final No growth in 5 days. - Other Studies Radiology: [] Other Studies: [] Route of nutrition/ use of supplements: [] Nutritional Intake: [] IV Site: [] Chakraborty Catheter: [] - Assessment/Plan Antibiotics: [] Assessment/Plan: [] Patient with a polymicrobial sacral wound infection status post surgical debridement done on August 03. Eravacycline 1mg/kg IV q12h. will be reasonable agent I did discuss this with the pharmacy who will make attempts to obtain this medication.
[2019-08-11 16:45] LABS: Bedside Glucose 122 mg/dL (70-110)
[2019-08-11] MEDS: oxyCODONE 5 MG Tablet 10 MG PO (19:09)
[2019-08-11 20:16] VITALS: BP 118/66; PULSE 97; RESP 20; TEMP 36.6; O2SAT 95
--- NOTE | 2019-08-11 20:51 | PN.SURG_ITS ---
Subjective: Postop #7 Patient is resting comfortably. - Physical Exam Vitals/I&O's: Vital Signs Temp Pulse Resp BP Pulse Ox 97.9 F 69 18 98/66 100 08/11/19 20:27 08/11/19 20:27 08/11/19 20:27 08/11/19 20:27 08/11/19 20:27 Oxygen Flow Rate (L/min) 2 Oxygen Delivery Method Room Air Weight: 285 lb 0.006 oz Body Mass Index (BMI) 38.6 Finger Stick Blood Glucose 191 Intake and Output for Last 24 Hours 08/09/19 08/10/19 08/11/19 23:59 23:59 23:59 Intake Total 2061 / 2061 1260.5 / 1260.5 882 / 882 Output Total 2324 / 2324 1945 / 194 650 / 650 Balance -263 / -263 -684.5 / -684.5 232 / 232 General: Alert, Oriented x3 HEENT: PERRLA, EOMI Oral: Moist Mucosa Neck: Supple Abdomen: Soft, Non-Distended Skin: Ulcer/ Wound - sacral pressure sore ulcer is stable. No active bleeding. NO active infection at this time. Redressed with Dakin's dressing changes. Neurological: Cranial nerves II-XII grossly intact Psych/Mental Status: Normal Affect, Appropriate Microbiology Past 72 Hours 08/04/19 10:26 Tissue - Bone Gram Stain - Final 08/04/19 10:26 Tissue - Bone Wound Culture - Final Meth. resistant Staph. aureus 08/04/19 10:26 Tissue - Bone Anaerobic Culture - Final No growth in 5 days. Pathology - negative for acute osteomyelitis. Laboratory Results 08/10/19 22:25: POC Glucose 147 H 08/11/19 06:29: POC Glucose 128 H 08/11/19 11:29: POC Glucose 126 H 08/11/19 16:21: POC Glucose 122 H Current Medications Acetaminophen (Tylenol) 650 mg PO Q6H PRN PRN Reason: PAIN/FEVER Last Admin: 08/10/19 02:48 Dose: 650 mg Documented by: Atorvastatin Calcium (Lipitor) 80 mg PO QHS [facility] Last Admin: 08/10/19 22:21 Dose: 80 mg Documented by: Diazepam (Valium) 5 mg PO 4X/DAY PRN PRN PRN Reason: SPASMS Diltiazem HCl (Cardizem) 60 mg PO TID [facility] Last Admin: 08/11/19 16:07 Dose: 60 mg Documented by: Divalproex Sodium (Depakote) 750 mg PO TID [facility] Last Admin: 08/11/19 16:07 Dose: 750 mg Documented by: Docusate Sodium (Colace) 100 mg PO BID [facility] Last Admin: 08/11/19 07:34 Dose: Not Given Documented by: Enoxaparin Sodium (Lovenox) 40 mg SC DAILY@0600 [facility] Last Admin: 08/11/19 06:13 Dose: 40 mg Documented by: Famotidine (Pepcid) 20 mg PO DAILY [facility] Last Admin: 08/11/19 08:49 Dose: 20 mg Documented by: Fenofibrate (Tricor) 145 mg PO DAILYCM [facility] Last Admin: 08/11/19 08:48 Dose: 145 mg Documented by: Folic Acid (Folic Acid) 1 mg PO DAILY@0800 [facility] Last Admin: 08/11/19 08:47 Dose: 1 mg Documented by: Heparin Sodium (Beef Lung) () 50 units IV UD PRN PRN Reason: PICC Line Heparin Flush Hydromorphone HCl (Dilaudid Inj) 1 mg IV Q4H PRN PRN PRN Reason: Pain Score 6-10/10 Last Admin: 08/10/19 22:46 Dose: 1 mg Documented by: Lactated Ringer's () 1,000 mls @ 60 mls/hr IV .[id number] [facility] Last Admin: 08/11/19 08:47 Dose: 60 mls/hr Documented by: Sodium Chloride () 250 mls @ 15 mls/hr IV .[id number] PRN PRN Reason: Saline Flush Sodium Chloride () 250 mls @ 15 mls/hr IV .[id number] PRN PRN Reason: Additional IVPB Infusion Vancomycin IV Pharmacy to Dose (1 ea/ Sodium Chloride) 500 mls @ 250 mls/hr IV X1 PRN; Protocol PRN Reason: Rx to Dose Tobramycin Sulfate 540 mg/ (Dextrose) 63.5 mls @ 100 mls/hr IV Q24H [facility] Last Admin: 08/11/19 19:08 Dose: 100 mls/hr Documented by: Insulin Human Lispro (Humalog Kwikpen (Bkc)) 0 unit SC [facility]S [facility]; Protocol Last Admin: 08/11/19 16:23 Dose: Not Given Documented by: Levofloxacin (Levaquin Tablet) 500 mg PO DAILY@0600 [facility] Last Admin: 08/11/19 06:13 Dose: 500 mg Documented by: Linezolid (Zyvox) 600 mg PO BID [facility] Last Admin: 08/11/19 08:49 Dose: 600 mg Documented by: Loperamide HCl (Imodium) 2 mg PO TID PRN PRN PRN Reason: Diarrhea Last Admin: 08/10/19 02:48 Dose: 2 mg Documented by: Metformin [facility] ([facility]) [facility] Last Admin: 08/11/19 08:47 Dose: 2,000 mg Documented by: Metoprolol Tartrate (Lopressor (Beta Dana)) 100 mg PO BID [facility] Last Admin: 08/11/19 08:48 Dose: 100 mg Documented by: Metronidazole (Flagyl) 500 mg PO TID [facility] Last Admin: 08/11/19 16:12 Dose: 500 mg Documented by: Multivitamins (Multivitamin) 1 tablet PO DAILY@0800 [facility] Last Admin: 08/11/19 08:48 Dose: 1 tablet Documented by: Nutritional Formula (Mike - [place] Flavor) [facility] Last Admin: 08/11/19 16:06 Dose: 1 packet Documented by: [id number] Ethyl Esters (Lovaza) 1 gm PO DAILY [facility] Last Admin: 08/11/19 08:49 Dose: 1 gm Documented by: Ondansetron HCl (Zofran) 4 mg IV Q6H PRN PRN PRN Reason: NAUSEA Oxycodone HCl (Oxyir) 10 mg PO Q4H PRN PRN PRN Reason: Pain Score 4-5/10 Last Admin: 08/11/19 19:09 Dose: 10 mg Documented by: Pantoprazole Sodium (Protonix) 20 mg PO DAILY [facility] Last Admin: 08/11/19 08:49 Dose: 20 mg Documented by: Polyethylene Glycol (Miralax) 17 gm PO DAILY [facility] Last Admin: 08/11/19 07:34 Dose: Not Given Documented by: Promethazine HCl (Phenergan Tablet) 25 mg PO Q4H PRN PRN PRN Reason: NAUSEA/VOMITING Sodium Chloride () 10 - 40 ml IV UD PRN PRN Reason: SALINE FLUSH Last Admin: 08/10/19 22:46 Dose: 10 ml Documented by: Sodium Chloride () 10 - 40 ml IV UD PRN PRN Reason: Open End PICC Flush Sodium Chloride (0.9% Nacl (Sterile) Posiflush) 10 - 40 ml IV UD PRN PRN Reason: Port access or dressing change Sodium Hypochlorite (Dakins Solution 0.25% (1/2 Strength)) 1 applic TOPICAL BID [facility]; Protocol Last Admin: 08/11/19 08:48 Dose: 1 applicatio Documented by: Medical Necessity - Tobacco Use Smoking Status: Current every day smoker Tobacco Use: Cigarettes Assessment/Plan All Active Problems (Last Updated 12/07/17 @ 08:57 by Shira Conte) PAD (peripheral artery disease) (Acute) 1. Sacral pressure sore, Stage IV. 2. Diabetes mellitus. 3. PAD. 4. Epilepsy. 5. Smoker. 6. s/p excision sacral pressure sore, Stage IV, with partial ostectomy for osteomyelitis. 7. MRSA. 8. MDR Acinetobacter baumannii. 9. Chronic MRSA osteomyelitis. Sacral wound is stable. Continue Dakin's dressing changes. Operative culture shows Proteus mirabilis, MDR Acinetobacter baumannii, Corynebacterium striatum, Anaerobic cocci, in the soft tissue and MRSA in the bone. Continue Tobramycin IV and Levaquin and Flagyl and Zyvox PO. Another PICC line has been placed. Pathology was negative for acute osteomyelitis. However, the bone culture showed MRSA. MRSA didn't show up in the soft tissue culture so it's consistent with chronic osteomyelitis. Infectious Diseases not is appreciated. They recommended Eravacycline which has less risk than Tobramycin. Once obtained we can get him back to his ECF. Prealbumin was 19.0. Encourage nutritional supplementation with protein to help the healing process. HgbA1c was 7.9. For any wound closure procedures with myocutaneous flaps, the HgbA1c needs to be less than 8. Due to the close proximity of the pressure sore ulcer to the anal opening, the patient is at increased risk for stool contamination that would make the ulcer worse with the need for additional operative debridements which would make the ulcer larger. The larger the ulcer makes healing much more difficult. I discussed a diverting colostomy with the patient. I recommended a diverting colostomy. He is not sure about proceeding with the colostomy at this time. I told him we can further discuss it at the Wound Center. If I start seeing stool contamination with the wound care, then he wound need to proceed with the colostomy. He voices understanding. Encouraged patient to stop smoking as it may have deleterious effects on wound healing.
[2019-08-11] MEDS: Atorvastatin Calcium 80 MG Tablet PO (21:39)
[2019-08-11] MEDS: HYDROmorphone 1 MG/ML Syringe IV (21:39)
[2019-08-11 21:41] VITALS: PULSE 96
[2019-08-11] MEDS: Insulin Lispro 100 UNIT/ML INSULN.PEN SC (21:52)
[2019-08-11 21:55] LABS: Bedside Glucose 150 mg/dL (70-110)
[2019-08-12] MEDS: Lactated Ringers 1,000 ML 60 ML IV ×2 (01:41→16:10)
[2019-08-12 02:20] VITALS: BP 148/80; PULSE 97; RESP 20; TEMP 36.6; O2SAT 95
[2019-08-12 05:15] LABS: Vancomycin, Trough Level < 0.8 ug/mL (5.0-15.0)
[2019-08-12] MEDS: dilTIAZem 30 MG Tablet 60 MG PO ×3 (05:53→21:58)
[2019-08-12] MEDS: metroNIDAZOLE 500 MG Tablet PO ×2 (05:53→13:36)
[2019-08-12] MEDS: Enoxaparin 40 MG/0.4 ML Syringe SC (05:54)
[2019-08-12] MEDS: levoFLOXacin 500 MG Tablet PO (05:54)
[2019-08-12] MEDS: Divalproex Sodium 250 MG Tablet 750 MG PO ×3 (05:54→21:58)
[2019-08-12 06:46] LABS: Bedside Glucose 119 mg/dL (70-110)
[2019-08-12 08:20] VITALS: BP 119/69; PULSE 81; RESP 18; TEMP 36.7; O2SAT 100
[2019-08-12 10:45] VITALS: PULSE 81
[2019-08-12] MEDS: Metoprolol Tartrate 100 MG Tablet PO ×2 (10:45→21:57)
[2019-08-12] MEDS: Omega-3 Acid Ethyl Esters 1 GM Capsule PO (10:46)
[2019-08-12] MEDS: Multivitamins,Therapeutic Tablet 1 TABLET PO (10:46)
[2019-08-12] MEDS: Folic Acid 1 MG Tablet PO (10:46)
[2019-08-12] MEDS: Famotidine 20 MG Tablet PO (10:46)
[2019-08-12] MEDS: Linezolid 600 MG Tablet PO (10:46)
[2019-08-12] MEDS: metFORMIN (XR) 500 MG Tablet 2000 MG PO (10:46)
[2019-08-12] MEDS: Pantoprazole Sodium 20 MG Tablet PO (10:46)
[2019-08-12] MEDS: Fenofibrate 145 MG Tablet PO (10:46)
[2019-08-12] MEDS: DAKIN'S SOL HALF STRENGTH (=0.25%) 1 APPLIC TOPICAL ×2 (10:47→22:28)
--- NOTE | 2019-08-12 11:00 | NURSING ---
Addendum entered by Ernestina Morales 08/12/19 11:13: All AM medications given late due to pt. lethargy. Able to be awakened for food and medications at time previous note was written Original Note: This RN awakened patient as he had been very sleepy this morning. AM medications given and pt finished eating lunch at this time. Will adjust BGT as appropriate for meals.
--- NOTE | 2019-08-12 12:06 | PCM.PN.SRG ---
Subjective: Post op day #8 Patient resting comfortably in bed - Physical Exam Vitals/I&O's: Vital Signs Temp Pulse Resp BP Pulse Ox 98.1 F 81 18 119/69 100 08/12/19 08:20 08/12/19 10:45 08/12/19 08:20 08/12/19 08:20 08/12/19 08:20 Oxygen Flow Rate (L/min) 2 Oxygen Delivery Method Nasal Cannula Weight: 285 lb 0.006 oz Body Mass Index (BMI) 38.6 Finger Stick Blood Glucose 191 Intake and Output for Last 24 Hours 08/10/19 08/11/19 08/12/19 23:59 23:59 23:59 Intake Total 1260.5 / 1260.5 1365.5 / 1365.5 1850 / 1850 Output Total 1945 / 1945 1150 / 1150 1200 / 1200 Balance -684.5 / -684.5 215.5 / 215.5 650 / 650 General: Alert, Cooperative HEENT: Atraumatic Oral: Moist Mucosa Lungs: Normal air movement Cardiovascular: Regular rate Abdomen: Obese Extremities: Capillary Refill Less than 3 Seconds, Peripheral Pulses Normal Skin: Ulcer/ Wound - Sacral ulcer dressing dry and intact. Musculoskeletal: No Tenderness to Palpation of Joints or Extremities Neurological: Neuro grossly intact Psych/Mental Status: Normal Affect, Appropriate Microbiology Past 72 Hours 08/04/19 10:26 Tissue - Bone Gram Stain - Final 08/04/19 10:26 Tissue - Bone Wound Culture - Final Meth. resistant Staph. aureus 08/04/19 10:26 Tissue - Bone Anaerobic Culture - Final No growth in 5 days. Laboratory Results 08/11/19 16:21: POC Glucose 122 H 08/11/19 21:51: POC Glucose 150 H 08/12/19 04:38: Vancomycin Trough < 0.8 L 08/12/19 06:35: POC Glucose 119 H Current Medications Acetaminophen (Tylenol) 650 mg PO Q6H PRN PRN Reason: PAIN/FEVER Last Admin: 08/10/19 02:48 Dose: 650 mg Documented by: Atorvastatin Calcium (Lipitor) 80 mg PO QHS [facility] Last Admin: 08/11/19 21:39 Dose: 80 mg Documented by: Diazepam (Valium) 5 mg PO 4X/DAY PRN PRN PRN Reason: SPASMS Diltiazem HCl (Cardizem) 60 mg PO TID [facility] Last Admin: 08/12/19 05:53 Dose: 60 mg Documented by: Divalproex Sodium (Depakote) 750 mg PO TID [facility] Last Admin: 08/12/19 05:54 Dose: 750 mg Documented by: Docusate Sodium (Colace) 100 mg PO BID [facility] Last Admin: 08/12/19 10:46 Dose: Not Given Documented by: Enoxaparin Sodium (Lovenox) 40 mg SC DAILY@0600 [facility] Last Admin: 08/12/19 05:54 Dose: 40 mg Documented by: Famotidine (Pepcid) 20 mg PO DAILY [facility] Last Admin: 08/12/19 10:46 Dose: 20 mg Documented by: Fenofibrate (Tricor) 145 mg PO DAILYCM [facility] Last Admin: 08/12/19 10:46 Dose: 145 mg Documented by: Folic Acid (Folic Acid) 1 mg PO DAILY@0800 [facility] Last Admin: 08/12/19 10:46 Dose: 1 mg Documented by: Heparin Sodium (Beef Lung) () 50 units IV UD PRN PRN Reason: PICC Line Heparin Flush Hydromorphone HCl (Dilaudid Inj) 1 mg IV Q4H PRN PRN PRN Reason: Pain Score 6-10/10 Last Admin: 08/11/19 21:39 Dose: 1 mg Documented by: Lactated Ringer's () 1,000 mls @ 60 mls/hr IV .[id number] [facility] Last Admin: 08/12/19 01:41 Dose: 60 mls/hr Documented by: Sodium Chloride () 250 mls @ 15 mls/hr IV .[id number] PRN PRN Reason: Saline Flush Sodium Chloride () 250 mls @ 15 mls/hr IV .[id number] PRN PRN Reason: Additional IVPB Infusion Vancomycin IV Pharmacy to Dose (1 ea/ Sodium Chloride) 500 mls @ 250 mls/hr IV X1 PRN; Protocol PRN Reason: Rx to Dose Tobramycin Sulfate 540 mg/ (Dextrose) 63.5 mls @ 100 mls/hr IV Q24H [facility] Last Infusion: 08/11/19 19:50 Dose: Infused Documented by: Insulin Human Lispro (Humalog Kwikpen (Bkc)) 0 unit SC [facility]; Protocol Last Admin: 08/12/19 06:59 Dose: Not Given Documented by: Levofloxacin (Levaquin Tablet) 500 mg PO DAILY@0600 [facility] Last Admin: 08/12/19 05:54 Dose: 500 mg Documented by: Linezolid (Zyvox) 600 mg PO BID [facility] Last Admin: 08/12/19 10:46 Dose: 600 mg Documented by: Loperamide HCl (Imodium) 2 mg PO TID PRN PRN PRN Reason: Diarrhea Last Admin: 08/10/19 02:48 Dose: 2 mg Documented by: Metformin HCl ([facility]) [facility] Last Admin: 08/12/19 10:46 Dose: 2,000 mg Documented by: Metoprolol Tartrate (Lopressor (Beta Dana)) 100 mg PO BID [facility] Last Admin: 08/12/19 10:45 Dose: 100 mg Documented by: Metronidazole (Flagyl) 500 mg PO TID [facility] Last Admin: 08/12/19 05:53 Dose: 500 mg Documented by: Multivitamins (Multivitamin) 1 tablet PO DAILY@0800 [facility] Last Admin: 08/12/19 10:46 Dose: 1 tablet Documented by: Nutritional Formula (Mike - [place] Flavor) [facility] Last Admin: 08/12/19 10:46 Dose: 1 packet Documented by: [id number] Ethyl Esters (Lovaza) 1 gm PO DAILY [facility] Last Admin: 08/12/19 10:46 Dose: 1 gm Documented by: Ondansetron HCl (Zofran) 4 mg IV Q6H PRN PRN PRN Reason: NAUSEA Oxycodone HCl (Oxyir) 10 mg PO Q4H PRN PRN PRN Reason: Pain Score 4-5/10 Last Admin: 08/11/19 19:09 Dose: 10 mg Documented by: Pantoprazole Sodium (Protonix) 20 mg PO DAILY [facility] Last Admin: 08/12/19 10:46 Dose: 20 mg Documented by: Polyethylene Glycol (Miralax) 17 gm PO DAILY [facility] Last Admin: 08/12/19 10:47 Dose: Not Given Documented by: Promethazine HCl (Phenergan Tablet) 25 mg PO Q4H PRN PRN PRN Reason: NAUSEA/VOMITING Sodium Chloride () 10 - 40 ml IV UD PRN PRN Reason: SALINE FLUSH Last Admin: 08/10/19 22:46 Dose: 10 ml Documented by: Sodium Chloride () 10 - 40 ml IV UD PRN PRN Reason: Open End PICC Flush Sodium Chloride (0.9% Nacl (Sterile) Posiflush) 10 - 40 ml IV UD PRN PRN Reason: Port access or dressing change Sodium Hypochlorite (Dakins Solution 0.25% (1/2 Strength)) 1 applic TOPICAL BID [facility]; Protocol Last Admin: 08/12/19 10:47 Dose: 1 applicatio Documented by: Medical Necessity - Tobacco Use Smoking Status: Current every day smoker Tobacco Use: Cigarettes Assessment/Plan All Active Problems (Last Updated 12/07/17 @ 08:57 by Shira Conte) PAD (peripheral artery disease) (Acute) 1. Sacral pressure sore, Stage IV. 2. Diabetes mellitus. 3. PAD. 4. Epilepsy. 5. Smoker. 6. s/p excision sacral pressure sore, Stage IV, with partial ostectomy for osteomyelitis. 7. MRSA. 8. MDR Acinetobacter baumannii. 9. Chronic MRSA osteomyelitis. Sacral wound is stable. Continue Dakin's dressing changes. Operative culture shows Proteus mirabilis, MDR Acinetobacter baumannii, Corynebacterium striatum, Anaerobic cocci, in the soft tissue and MRSA in the bone. Continue Tobramycin IV and Levaquin and Flagyl and Zyvox PO. Another PICC line has been placed. Pathology was negative for acute osteomyelitis. However, the bone culture showed MRSA. MRSA didn't show up in the soft tissue culture so it's consistent with chronic osteomyelitis. Infectious Diseases note is appreciated. They recommended Eravacycline which has less risk than Tobramycin. Once obtained we can get him back to his ECF. Prealbumin was 19.0. Encourage nutritional supplementation with protein to help the healing process. HgbA1c was 7.9. For any wound closure procedures with myocutaneous flaps, the HgbA1c needs to be less than 8. Due to the close proximity of the pressure sore ulcer to the anal opening, the patient is at increased risk for stool contamination that would make the ulcer worse with the need for additional operative debridements which would make the ulcer larger. The larger the ulcer makes healing much more difficult. I discussed a diverting colostomy with the patient. I recommended a diverting colostomy. He is not sure about proceeding with the colostomy at this time. I told him we can further discuss it at the Wound Center. If I start seeing stool contamination with the wound care, then he wound need to proceed with the colostomy. He voices understanding. Encouraged patient to stop smoking as it may have deleterious effects on wound healing.
--- NOTE | 2019-08-12 12:32 | NURSING ---
KASEY Thomas, called in and requested an update on patient. This RN returned call and answered Martha's questions and updated her on patient's morning. Notified that we are waiting on antibiotic to give patient prior to d/c, as it is a new atb for patient. Notified that patient may be d/c'ed possibly tomorrow but planning for the next few days.
--- NOTE | 2019-08-12 12:34 | NURSING ---
Asked pt if he would like lunch and he states, already? No, I am not hungry yet. Will continue to assess.
[2019-08-12] MEDS: Insulin Lispro 100 UNIT/ML INSULN.PEN SC ×2 (13:44→17:17)
[2019-08-12 13:48] VITALS: BP 115/64; PULSE 81; RESP 20; TEMP 36.6; O2SAT 97
[2019-08-12 13:56] LABS: Bedside Glucose 154 mg/dL (70-110)
--- NOTE | 2019-08-12 15:14 | CASEMGMT ---
Addendum entered by Cony Nieves 08/12/19 16:27: SW faxed PICC line information to [facility]. VIJAY Gunter Addendum entered by Cony Nieves 08/12/19 16:19: SW spoke w/Kirstin at [facility], they can get the IV medication that pt is on here at present(Eravacycline) when pt is ready to return to the detention. VIJAY Gunter Original Note: LUNA faxed updates to [facility] in [place], called and spoke w/gertrude. SW let her know that updates faxed and that pt will need IV antibiotics. SW asked her to review the antibiotic and let this SW know if they are able to attain this medication. She is to let this SW know. SW will continue to follow. VIJAY Gunter
[2019-08-12] MEDS: 0.9% Saline Lock 10 ML Syringe IV (15:59)
[2019-08-12] MEDS: oxyCODONE 5 MG Tablet 10 MG PO (16:05)
[2019-08-12 17:26] LABS: Bedside Glucose 151 mg/dL (70-110)
[2019-08-12 19:50] VITALS: BP 118/61; PULSE 95; RESP 20; TEMP 36.6; O2SAT 94
[2019-08-12 21:57] VITALS: PULSE 95
[2019-08-12] MEDS: Atorvastatin Calcium 80 MG Tablet PO (21:57)
[2019-08-12] MEDS: HYDROmorphone 1 MG/ML Syringe IV (22:02)
[2019-08-12 22:41] LABS: Bedside Glucose 132 mg/dL (70-110)
[2019-08-13 02:15] VITALS: BP 112/62; PULSE 84; RESP 22; TEMP 37.3; O2SAT 96
[2019-08-13] MEDS: dilTIAZem 30 MG Tablet 60 MG PO ×2 (06:27→15:00)
[2019-08-13] MEDS: Divalproex Sodium 250 MG Tablet 750 MG PO ×2 (06:28→15:01)
[2019-08-13] MEDS: Enoxaparin 40 MG/0.4 ML Syringe SC (06:28)
[2019-08-13 06:55] LABS: Bedside Glucose 108 mg/dL (70-110)
[2019-08-13] MEDS: DAKIN'S SOL HALF STRENGTH (=0.25%) 1 APPLIC TOPICAL (08:30)
[2019-08-13] MEDS: metFORMIN (XR) 500 MG Tablet 2000 MG PO (08:34)
[2019-08-13] MEDS: Fenofibrate 145 MG Tablet PO (08:35)
[2019-08-13] MEDS: Folic Acid 1 MG Tablet PO (08:35)
[2019-08-13] MEDS: Multivitamins,Therapeutic Tablet 1 TABLET PO (08:35)
[2019-08-13 08:46] VITALS: BP 112/72; PULSE 78; RESP 18; TEMP 36.5; O2SAT 100
[2019-08-13 10:33] VITALS: BP 126/67; PULSE 80
[2019-08-13] MEDS: Metoprolol Tartrate 100 MG Tablet PO (10:33)
[2019-08-13] MEDS: Famotidine 20 MG Tablet PO (10:33)
[2019-08-13] MEDS: Omega-3 Acid Ethyl Esters 1 GM Capsule PO (10:35)
[2019-08-13] MEDS: Pantoprazole Sodium 20 MG Tablet PO (10:36)
[2019-08-13] MEDS: Insulin Lispro 100 UNIT/ML INSULN.PEN SC (12:59)
[2019-08-13] MEDS: Lactated Ringers 1,000 ML 60 ML IV (13:06)
[2019-08-13 13:07] VITALS: BP 116/69; PULSE 75; RESP 20; TEMP 36.8; O2SAT 98
[2019-08-13 13:16] LABS: Bedside Glucose 162 mg/dL (70-110)
--- NOTE | 2019-08-13 15:03 | PCM.PN.ID ---
Subjective: Patient is alert overall clinically stable tolerating eravacycline well. No fever. No gastrointestinal distress Objective: Alert does not appear toxic lungs are clear heart exam S1-S2 abdomen soft nontender obese - Physical Exam Vitals/I&O's: Vital Signs Temp Pulse Resp BP Pulse Ox 98.3 F 75 20 H 116/69 98 08/13/19 13:07 08/13/19 13:07 08/13/19 13:07 08/13/19 13:07 08/13/19 13:07 Oxygen Flow Rate (L/min) 2 Oxygen Delivery Method Nasal Cannula Weight: 129.274 kg Body Mass Index (BMI) 38.6 Finger Stick Blood Glucose 191 Intake and Output for Last 24 Hours 08/11/19 08/12/19 08/13/19 23:59 23:59 23:59 Intake Total 1365.5 / 1365.5 5179.5 / 5179.5 2945.0 / 2945.0 Output Total 1150 / 1150 3100 / 3100 1900 / 1900 Balance 215.5 / 215.5 2079.5 / 2079.5 1045.0 / 1045.0 Laboratory Results 08/12/19 17:15: POC Glucose 151 H 08/12/19 21:55: POC Glucose 132 H 08/13/19 06:34: POC Glucose 108 08/13/19 12:57: POC Glucose 162 H Current Medications Acetaminophen (Tylenol) 650 mg PO Q6H PRN PRN Reason: PAIN/FEVER Last Admin: 08/10/19 02:48 Dose: 650 mg Documented by: Atorvastatin Calcium (Lipitor) 80 mg PO QHS [facility] Last Admin: 08/12/19 21:57 Dose: 80 mg Documented by: Diazepam (Valium) 5 mg PO 4X/DAY PRN PRN PRN Reason: SPASMS Diltiazem HCl (Cardizem) 60 mg PO TID [facility] Last Admin: 08/13/19 15:00 Dose: 60 mg Documented by: Divalproex Sodium (Depakote) 750 mg PO TID [facility] Last Admin: 08/13/19 15:01 Dose: 750 mg Documented by: Docusate Sodium (Colace) 100 mg PO BID [facility] Last Admin: 08/13/19 10:30 Dose: Not Given Documented by: Enoxaparin Sodium (Lovenox) 40 mg SC DAILY@0600 [facility] Last Admin: 08/13/19 06:28 Dose: 40 mg Documented by: Famotidine (Pepcid) 20 mg PO DAILY [facility] Last Admin: 08/13/19 10:33 Dose: 20 mg Documented by: [facility] ([facility]) [facility] Last Admin: 08/13/19 08:35 Dose: 145 mg Documented by: Folic Acid (Folic Acid) 1 mg PO DAILY@0800 [facility] Last Admin: 08/13/19 08:35 Dose: 1 mg Documented by: Heparin Sodium (Beef Lung) () 50 units IV UD PRN PRN Reason: PICC Line Heparin Flush Hydromorphone HCl (Dilaudid Inj) 1 mg IV Q4H PRN PRN PRN Reason: Pain Score 6-10/10 Last Admin: 08/12/19 22:02 Dose: 1 mg Documented by: Lactated Ringer's () 1,000 mls @ 60 mls/hr IV .[id number] [facility] Last Admin: 08/13/19 13:06 Dose: 60 mls/hr Documented by: Sodium Chloride () 250 mls @ 15 mls/hr IV .[id number] PRN PRN Reason: Saline Flush Sodium Chloride () 250 mls @ 15 mls/hr IV .[id number] PRN PRN Reason: Additional IVPB Infusion Eravacycline 125 mg/ Sodium (Chloride) 262.5 mls @ 262.5 mls/hr IV Q12 [facility] Last Infusion: 08/13/19 11:36 Dose: Infused Documented by: Insulin Human Lispro (Humalog Kwikpen (Bkc)) 0 unit SC [facility]; Protocol Last Admin: 08/13/19 12:59 Dose: 1 u Documented by: Loperamide HCl (Imodium) 2 mg PO TID PRN PRN PRN Reason: Diarrhea Last Admin: 08/10/19 02:48 Dose: 2 mg Documented by: Metformin HCl (Glucophage [facility]r) [facility] Last Admin: 08/13/19 08:34 Dose: 2,000 mg Documented by: Metoprolol Tartrate (Lopressor (Beta Dana)) 100 mg PO BID [facility] Last Admin: 08/13/19 10:33 Dose: 100 mg Documented by: Multivitamins (Multivitamin) 1 tablet PO DAILY@0800 [facility] Last Admin: 08/13/19 08:35 Dose: 1 tablet Documented by: Nutritional Formula (Mike - [place] Flavor) 1 packet PO BIDCM [facility] Last Admin: 08/13/19 08:35 Dose: 1 packet Documented by: [id number] Ethyl Esters (Lovaza) 1 gm PO DAILY [facility] Last Admin: 08/13/19 10:35 Dose: 1 gm Documented by: Ondansetron HCl (Zofran) 4 mg IV Q6H PRN PRN PRN Reason: NAUSEA Oxycodone HCl (Oxyir) 10 mg PO Q4H PRN PRN PRN Reason: Pain Score 4-5/10 Last Admin: 08/12/19 16:05 Dose: 10 mg Documented by: Pantoprazole Sodium (Protonix) 20 mg PO DAILY [facility] Last Admin: 08/13/19 10:36 Dose: 20 mg Documented by: Polyethylene Glycol (Miralax) 17 gm PO DAILY [facility] Last Admin: 08/13/19 10:30 Dose: Not Given Documented by: Promethazine HCl (Phenergan Tablet) 25 mg PO Q4H PRN PRN PRN Reason: NAUSEA/VOMITING Sodium Chloride () 10 - 40 ml IV UD PRN PRN Reason: SALINE FLUSH Last Admin: 08/12/19 15:59 Dose: 10 ml Documented by: Sodium Chloride () 10 - 40 ml IV UD PRN PRN Reason: Open End PICC Flush Sodium Chloride (0.9% Nacl (Sterile) Posiflush) 10 - 40 ml IV UD PRN PRN Reason: Port access or dressing change Sodium Hypochlorite (Dakins Solution 0.25% (1/2 Strength)) 1 applic TOPICAL BID [facility]; Protocol Last Admin: 08/13/19 08:30 Dose: 1 applicatio Documented by: Medical Necessity - Tobacco Use Smoking Status: Current every day smoker Tobacco Use: Cigarettes Route of nutrition/ use of supplements: [] Nutritional Intake: [] IV Site: [] Chakraborty Catheter: [] - Assessment/Plan Plan is to continue eravacycline 1mg/kg IV every 12 hours through September 07 with weekly blood work. Okay to go back to the ECF from my standpoint. I did write a prescription as well as an order to remove the PICC line once his antibiotics are completed on September 07.
[2019-08-13 15:05] VITALS: BP 147/70; PULSE 89; RESP 18; TEMP 36.6; O2SAT 100
--- NOTE | 2019-08-13 15:57 | PCM.TXEXTCAR ---
- Diet 08/04/19 12:58 Diet: Cardiac: Calorie-Controlled Food consistency:: Regular Liquid Consistency:: Regular/Thin Is pt able to select menu?: Yes How many daily calories?: 1999 calorie - Routine Orders/Code Status Chakraborty Catheter Size: 16 Change Chakraborty Catheter: monthly and prn Routine Lab Work: CBC - qweekly. fax results to [phone]., - - CMP, ESR, CRP, Prealbumin qweekly. fax results to [phone]. - Wound(s) SACRUM Wound Type: Pressure Injury Dressing Change: Dakins moistened gauze - Suggestions for Active Care Change Position every (hours): 2 Hours to sit in a chair: 2 Times a day to sit in chair: 3 - Therapies Weight Bearing: Non weight bearing Extremity Affected:: Bilateral Lower Physical Therapy: Eval and Treat Occupational Therapy: Eval and Treat - Allergies/Procedures Done in Hospital Allergies/Adverse Reactions: Allergies Penicillins Allergy (Mild, Verified 08/04/19 07:11) rash Procedures: PICC line placement, - - 08/04/19 - Excision sacral pressure sore, Stage IV, with partial ostectomy for osteomyelitis. - Type of Care/Length of Stay Estimated LOS: More Than 30 Days Type of Care Needed: Skilled Rehab Potential: Fair Prognosis: Fair - Additional Orders/Day of Discharge Additional Orders: Eravacycline 125mg IV q12 hours until 09/08/19. H&P will serve as current which was dated: 08/03/19 Day of Discharge: 08/13/19 - Dietary and Speech Recommendations Dietitian Recommendations/Changes: Will change diet to 1999 josh Cardiac d/t pmhx and BMI - Follow Up Care Primary Care Physician: Jamaica Lambert MD [Primary Care Provider] - Please Follow Up With: Dg Nguyễn MD When: sunday08/25/19 at wound center. call [phone] for appt time.
--- NOTE | 2019-08-13 16:21 | CASEMGMT ---
Social Work Pt ready for discharge today. Phone call to pt contact Martha and updated. Phone call to [facility] and notified Kirstin of d/c today. Orders faxed and transportation arranged for 5:20 picking supervisor by [facility]. SW attempted to notified pt who would not wake up. Pt nurse notified of time of discharge. JOSE LUIS Burnham
--- NOTE | 2019-08-13 16:29 | PCM.DC.SUM ---
Discharge Date and Diagnosis Date of Admission: 08/04/19 Date of Discharge: 08/13/19 - Primary Discharge Diagnosis Acute Problems: Sacral pressure sore, Stage IV. MRSA. MDR Acinetobacter baumannii. Chronic MRSA osteomyelitis. - Secondary Discharge Diagnosis Chronic Problems: Epilepsy Diabetes mellitus Smoker PAD. Hospital Course and Treatment Imaging Results: Diagnostic Data Pelvis CT 08/05/19 12:45 IMPRESSION: 12.1 cm x 3 cm x 7.4 sinus soft tissue defect overlying the posterior sacrum in keeping with the patient''s history of decubitus ulceration and debridement. The underlying sacrum is unremarkable. 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 Bradshaw. Operations: - - 08/04/19 - Excision sacral pressure sore, Stage IV, with partial ostectomy for osteomyelitis. Procedures: PICC line placement Summary of Care Provided: 58 year old man presents with a sacral pressure sore that has extended down to the bone. He developed seizures about 2 years ago and has been in an ECF since then and has been nonambulatory. He denies fever. He complains of pain in the sacral pressure sore. The patient was taken to surgery on 08/04/19 where he underwent excision sacral pressure sore, Stage IV, with partial ostectomy for osteomyelitis. He tolerated the procedure well. A CT Pelvis was done the next day which showed the ulcer and the sacrum appeared unremarkable. The next day the VAC could not be applied because of the proximity of the pressure sore ulcer to the anal opening. Due to the close proximity of the pressure sore ulcer to the anal opening, the patient is at increased risk for stool contamination that would make the ulcer worse with the need for additional operative debridements which would make the ulcer larger. The larger the ulcer makes healing much more difficult. I discussed a diverting colostomy with the patient. I recommended a diverting colostomy. He is not sure about proceeding with the colostomy at this time. I told him we can further discuss it at the Wound Center. If I start seeing stool contamination with the wound care, then he wound need to proceed with the colostomy. He voiced understanding. So wound care was started with Dakin's dressing changes daily. The Prealbumin was 19.0. Encouraged nutritional supplementation with protein to help the healing process. His HgbA1c was 7.9. Before any attempt at wound closure with a myocutaneous flap, the HgbA1c needs to be less than 8. Wound cultures showed Proteus mirabilis, MDR Acinetobacter baumannii, Corynebacterium striatum, and Anaerobic cocci in the soft tissue and MRSA in the bone. Pathology was negative for acute osteomyelitis. He was started on treatment with Tobramycin, Levaquin, Flagyl, and Vancomycin. The Vancomycin was then changed to Zyvox. A PICC line was placed. Infectious Diseases was consulted to assist in antibiotic management. It was recommended to change to Eravacycline until September 07. Weekly labs will be drawn while on the IV antibiotics, (CBC, CMP, ESR, CRP, Prealbumin). Once the antibiotic situation was clarified, he was discharged to the [facility] on 08/13/19. He will followup at the Wound Center on 08/25/19. Depending on the healing of the sacral pressure sore, may further discuss the need for a diverting colostomy. Encouraged patient to stop smoking as it may have deleterious effects on wound healing. Subjective: Postop #9 Patient is resting comfortably. - Physical Exam Vitals/I&O's: Vital Signs Temp Pulse Resp BP Pulse Ox 97.8 F 89 18 147/70 H 100 08/13/19 15:05 08/13/19 15:05 08/13/19 15:05 08/13/19 15:05 08/13/19 15:05 Oxygen Flow Rate (L/min) 2 Oxygen Delivery Method Nasal Cannula Weight: 285 lb 0.006 oz Body Mass Index (BMI) 38.6 Finger Stick Blood Glucose 191 Intake and Output for Last 24 Hours 08/11/19 08/12/19 08/13/19 23:59 23:59 23:59 Intake Total 1365.5 / 1365.5 5179.5 / 5179.5 2945.0 / 2945.0 Output Total 1150 / 1150 3100 / 3100 1900 / 1900 Balance 215.5 / 215.5 2079.5 / 2079.5 1045.0 / 1045.0 General: Alert, Oriented x3 HEENT: PERRLA, EOMI Oral: Moist Mucosa Neck: Supple Abdomen: Soft, Non-Distended Skin: Ulcer/ Wound - sacral wound is stable. No active bleeding noted. No further evidence of infection. Neurological: Cranial nerves II-XII grossly intact Psych/Mental Status: Normal Affect, Appropriate Laboratory Results 08/12/19 17:15: POC Glucose 151 H 08/12/19 21:55: POC Glucose 132 H 08/13/19 06:34: POC Glucose 108 08/13/19 12:57: POC Glucose 162 H Current Medications Acetaminophen (Tylenol) 650 mg PO Q6H PRN PRN Reason: PAIN/FEVER Last Admin: 08/10/19 02:48 Dose: 650 mg Documented by: Atorvastatin Calcium (Lipitor) 80 mg PO QHS [facility] Last Admin: 08/12/19 21:57 Dose: 80 mg Documented by: Diazepam (Valium) 5 mg PO 4X/DAY PRN PRN PRN Reason: SPASMS Diltiazem HCl (Cardizem) 60 mg PO TID [facility] Last Admin: 08/13/19 15:00 Dose: 60 mg Documented by: Divalproex Sodium (Depakote) 750 mg PO TID [facility] Last Admin: 08/13/19 15:01 Dose: 750 mg Documented by: Docusate Sodium (Colace) 100 mg PO BID [facility] Last Admin: 08/13/19 10:30 Dose: Not Given Documented by: Enoxaparin Sodium (Lovenox) 40 mg SC DAILY@0600 [facility] Last Admin: 08/13/19 06:28 Dose: 40 mg Documented by: Famotidine (Pepcid) 20 mg PO DAILY [facility] Last Admin: 08/13/19 10:33 Dose: 20 mg Documented by: Fenofibrate (Tricor) 145 mg PO DAILYCM [facility] Last Admin: 08/13/19 08:35 Dose: 145 mg Documented by: Folic Acid (Folic Acid) 1 mg PO DAILY@0800 [facility] Last Admin: 08/13/19 08:35 Dose: 1 mg Documented by: Heparin Sodium (Beef Lung) () 50 units IV UD PRN PRN Reason: PICC Line Heparin Flush Hydromorphone HCl (Dilaudid Inj) 1 mg IV Q4H PRN PRN PRN Reason: Pain Score 6-10/10 Last Admin: 08/12/19 22:02 Dose: 1 mg Documented by: Lactated Ringer's () 1,000 mls @ 60 mls/hr IV .[id number] [facility] Last Admin: 08/13/19 13:06 Dose: 60 mls/hr Documented by: Sodium Chloride () 250 mls @ 15 mls/hr IV .[id number] PRN PRN Reason: Saline Flush Sodium Chloride () 250 mls @ 15 mls/hr IV .[id number] PRN PRN Reason: Additional IVPB Infusion Eravacycline 125 mg/ Sodium (Chloride) 262.5 mls @ 262.5 mls/hr IV Q12 [facility] Last Infusion: 08/13/19 11:36 Dose: Infused Documented by: Insulin Human Lispro (Humalog Kwikpen (Bkc)) 0 unit SC [facility]; Protocol Last Admin: 08/13/19 12:59 Dose: 1 u Documented by: Loperamide HCl (Imodium) 2 mg PO TID PRN PRN PRN Reason: Diarrhea Last Admin: 08/10/19 02:48 Dose: 2 mg Documented by: Metformin HCl (Glucophage Xr) [facility] Last Admin: 08/13/19 08:34 Dose: 2,000 mg Documented by: Metoprolol Tartrate (Lopressor (Beta Dana)) 100 mg PO BID [facility] Last Admin: 08/13/19 10:33 Dose: 100 mg Documented by: Multivitamins (Multivitamin) 1 tablet PO DAILY@0800 [facility] Last Admin: 08/13/19 08:35 Dose: 1 tablet Documented by: Nutritional Formula (Mike - [place] Flavor) [facility] Last Admin: 08/13/19 08:35 Dose: 1 packet Documented by: Dedth-7-Ggnp Ethyl Esters (Lovaza) 1 gm PO DAILY [facility] Last Admin: 08/13/19 10:35 Dose: 1 gm Documented by: Ondansetron HCl (Zofran) 4 mg IV Q6H PRN PRN PRN Reason: NAUSEA Oxycodone HCl (Oxyir) 10 mg PO Q4H PRN PRN PRN Reason: Pain Score 4-5/10 Last Admin: 08/12/19 16:05 Dose: 10 mg Documented by: Pantoprazole Sodium (Protonix) 20 mg PO DAILY [facility] Last Admin: 08/13/19 10:36 Dose: 20 mg Documented by: Polyethylene Glycol (Miralax) 17 gm PO DAILY [facility] Last Admin: 08/13/19 10:30 Dose: Not Given Documented by: Promethazine HCl (Phenergan Tablet) 25 mg PO Q4H PRN PRN PRN Reason: NAUSEA/VOMITING Sodium Chloride () 10 - 40 ml IV UD PRN PRN Reason: SALINE FLUSH Last Admin: 08/12/19 15:59 Dose: 10 ml Documented by: Sodium Chloride () 10 - 40 ml IV UD PRN PRN Reason: Open End PICC Flush Sodium Chloride (0.9% Nacl (Sterile) Posiflush) 10 - 40 ml IV UD PRN PRN Reason: Port access or dressing change Sodium Hypochlorite (Dakins Solution 0.25% (1/2 Strength)) 1 applic TOPICAL BID [facility]; Protocol Last Admin: 08/13/19 08:30 Dose: 1 applicatio Documented by: Discharge Diet: Carb Control Diet, - - encourage nutritional supplementation with protein to help the healing process. May resume sexual activity in: 1-2 weeks Weight Bearing Status: No weight bearing Call your doctor if your incision/area has: Continuous Slow Oozing, Sudden Increased Bleeding, Increased Pain/ Swelling, Increased Redness, Foul Smelling Discharge, Swelling at the incision site Call your doctor if you observe: Fever of 101 or Higher, Coldness, Increased Pain, Shortness of breath, Chest pain, Calf discomfort, Uncontrolled pain Suture Line Care: - - Dakin's dressing changes daily. Change Dressing in (Days):: 1 - Dakin's dressing changes daily. Cleanse incision/area with: Soap & Water - may cleanse the wound with soap and water at the time of the Dakin's dressing change. Catheter: Chakraborty to leg bag Home Medications: Medications to take at Discharge Atorvastatin Calcium [Lipitor] 80 mg PO DAILY 03/26/18 Acetaminophen [Tylenol] 650 mg PO Q6H PRN 07/21/19 Cimetidine [Tagamet Hb] 100 mg PO DAILY 07/21/19 Diltiazem HCl 60 mg PO TID 07/21/19 Docusate Sodium [Colace] 100 mg PO BID 07/21/19 Duloxetine Hcl [Cymbalta] 60 mg PO DAILY 07/21/19 Fenofibrate [Tricor] 145 mg PO DAILY 07/21/19 Folic Acid 1 mg PO DAILY 07/21/19 Loperamide HCl [Imodium A-D] 2 mg PO PRN PRN 07/21/19 Metformin HCl 2,000 mg PO DAILY 07/21/19 Metoprolol Tartrate [Lopressor] 100 mg PO BID 07/21/19 Multivitamin 1 tab PO DAILY 07/21/19 Nystatin Powder [Mycostatin Powder] 1 applic TOPICAL BID 07/21/19 [place]-3 Fatty Acids/Fish Oil [Fish Oil 1,000 mg Capsule] 1 ea PO DAILY 07/21/19 Omeprazole 20 mg PO DAILY 07/21/19 Polyethylene Glycol 3350 [Miralax] 17 gm PO DAILY 07/21/19 Valproic Acid 750 mg PO TID 07/21/19 Argin/Glut/Cahmb/Collag/Mv-Min [Mike Packet] 1 ea PO BID 08/01/19 Aspirin [Aspirin, Baby] 81 mg PO DAILY@0800 08/04/19 Diazepam [Valium] 5 mg PO 4X/DAY PRN PRN #30 tab 08/13/19 Enoxaparin [Lovenox] 40 mg SUBCUT DAILY@0600 syringe 08/13/19 Eravacycline [Xerava] 125 mg IV Q12 vial 08/13/19 Heparin Pf Lock 10 units/ml 50 units IV UD PRN syringe 08/13/19 Insulin Lispro [Humalog KwikPen] See Protocol SUBCUT ACHS insuln.pen 08/13/19 Oxycodone [Oxyir] 10 mg PO Q4H PRN PRN 7 Days #40 tab 08/13/19 Sodium Hypochlorite [Dakins Solution 0.25% (1/2 Strength)] 1 applic TOPICAL BID bottle 08/13/19 proMETHazine tablet [Phenergan tablet] 25 mg PO Q4H PRN PRN tab 08/13/19 Following Prescrptions Were Given to Patient: Oxycodone [Oxyir] 10 mg PO Q4H PRN PRN 7 Days #40 tab PRN Reason: Pain Score 4-5/10 Prescription Printed Diazepam [Valium] 5 mg PO 4X/DAY PRN PRN #30 tab PRN Reason: Spasms Prescription Printed Primary Care Physician: Jamaica Lambert MD [Primary Care Provider] - Please Follow Up With: Dg Nguyễn MD When: sunday08/25/19 at [facility]. call [phone] for appt time. Additional Instructions: Patient will have CBC, CMP, ESR, CRP, Prealbumin drawn every Sunday. Will fax the results to [phone] and [phone]. Disposition: Long Term facility Minutes spent on discharge:: 35 Patient Condition:: Stable Medical Necessity - Tobacco Use Smoking Status: Current every day smoker Tobacco Use: Cigarettes Meaningful Use Info Meaningful Use Diagnoses (Choose all that apply): None applicable
[2019-08-13] MEDS: 0.9% Saline Lock 10 ML Syringe IV (17:16)
[2019-08-13] MEDS: oxyCODONE 5 MG Tablet 10 MG PO (17:19)
[2019-08-13 17:21] LABS: Bedside Glucose 100 mg/dL (70-110)
--- NOTE | 2019-08-13 17:38 | NUR.TO.PHY ---
called pt's sign other and let her know that pt is on route to [facility] in [place]
--- NOTE | 2019-08-13 17:49 | NURSING ---
[facility] talked[facility] leia givens
== END 2019-08-13 17:40 | disposition skilled nursing facility (03) | DRG 364 ==
LOC: SDC 11:58 → MS3 11:58
PROVIDERS: Anesthesiology; Admitting Provider Surgery; PCP Student in an Organized Health Care Education/Training Program; Referring Provider Surgery; Visit Provider Surgery
DX: L89.154 Pressure ulcer of sacral region, stage 4 (principal); L08.9 Local infection of the skin and subcutaneous tissue, unspecified; B96.4 Proteus (mirabilis) (morganii) as the cause of diseases classified elsewhere; M86.60 Other chronic osteomyelitis, unspecified site; B95.62 Methicillin resistant Staphylococcus aureus infection as the cause of diseases classified elsewhere; B96.89 Other specified bacterial agents as the cause of diseases classified elsewhere; M86.9 Osteomyelitis, unspecified; Z11.59 Encounter for screening for other viral diseases; G40.909 Epilepsy, unspecified, not intractable, without status epilepticus; E11.22 Type 2 diabetes mellitus with diabetic chronic kidney disease; I12.9 Hypertensive chronic kidney disease with stage 1 through stage 4 chronic kidney disease, or unspecified chronic kidney disease; N18.9 Chronic kidney disease, unspecified; K21.9 Gastro-esophageal reflux disease without esophagitis; F32.9 Major depressive disorder, single episode, unspecified; E78.5 Hyperlipidemia, unspecified; I25.10 Atherosclerotic heart disease of native coronary artery without angina pectoris; Z91.5 Personal history of self-harm; Z95.1 Presence of aortocoronary bypass graft; Z79.82 Long term (current) use of aspirin; Z79.84 Long term (current) use of oral hypoglycemic drugs; Z79.899 Other long term (current) drug therapy; F17.210 Nicotine dependence, cigarettes, uncomplicated; E11.51 Type 2 diabetes mellitus with diabetic peripheral angiopathy without gangrene
CPT/HCPCS: 36415; 36569; 72192; 80048; 80053; 80200; 80202; 82962; 83036; 84134; 85027; 85652; 86140; 87070; 87075; 87077; 87102; 87106; 87176; 87186; 87205; 87206; 87635; 88304; 88305; 88311; 93005; 97802; 97803; 99251; G2023; J7040; J7050; J7120; A4216; G0463; J0122; J2405; U0003

== ENCOUNTER 2019-08-18 11:21 | Inpatient (IN) | payer MEDICAID, SELFPAY ==
[2019-08-04 12:02] VITALS: BMI 38.6
[2019-08-18] VITALS (24 sets, daily range): BP systolic 78–138; BP diastolic 40–81; PULSE 77–117; RESP 16–32; TEMP 36–37.3; O2SAT 93–100; BMI 36.8; BMI 36.9; BMI 41.7
--- NOTE | 2019-08-18 11:31 | EKG12_ITS ---
Test Reason : TACHY Blood Pressure : / mmHG Vent. Rate : 129 BPM Atrial Rate : 129 BPM P-R Int : 152 ms QRS Dur : 102 ms QT Int : 304 ms P-R-T Axes : 062 -36 095 degrees QTc Int : 445 ms Sinus tachycardia Left axis deviation Inferior infarct , age undetermined Abnormal ECG When compared with ECG of 18-AUG-2019 11:30, MANUAL COMPARISON REQUIRED, DATA IS UNCONFIRMED Confirmed by AMISH CERVANTES, TRINA ([id number]), assignment editor HEVER CERVANTES ([id number]) on 08/22/2019 9:10:56 AM Referred By: SHANTI Confirmed By:BRENT WELLINGTON MD
--- NOTE | 2019-08-18 11:35 | ED.DCSUM_ITS ---
History of Present Illness Chief Complaint: Alt LOC Informant: Patient, SNF, PCP Narrative: 58-year-old male presents with concern for altered mentation. Patient is at [facility] in [place] after being discharged from [facility] for sacral wound with debridement. Dr. Nguyễn performed surgery and patient was hospitalized for approximately 3 weeks. Primary care physician at [facility] who is a physician's resident programs assistant spoke with me and had concern for sepsis. States that the wound is not improving and is actually worse. Feels that he may be septic from this wound. Patient is confused on exam and cannot provide an accurate history of present illness. Past Medical History - Allergies and Home Meds Allergies/Adverse Reactions: Allergies Penicillins Allergy (Mild, Verified 08/18/19 12:09) rash Prior records reviewed: Yes Past Medical History: - - CAD, HTN, DM Surgical History: cataract, coronary bypass surgery, pacemaker implantation Lives: Assisted Smoking Status: Current every day smoker Alcohol: None Drugs: None - Family History Maternal Family History: Family History (Last Updated 12/07/17 @ 08:47 by Shira Conte) Father Lung cancer Brother Heart disease Myocardial infarction Mother Diabetes Hypertension Review of Systems General: Denies: Chills, Fever, Sweats Eyes: Denies: Visual changes - bilaterally, Diplopia ENT: Denies: Rhinorrhea, Sore throat Cardiovascular: Denies: Chest pain, Palpitations Respiratory: Denies: Dyspnea, Cough, Dyspnea on exertion Gastrointestinal: Denies: Abdominal pain, Nausea, Vomiting, Diarrhea, Melena, Hematochezia Genitourinary: Denies: Dysuria, Hematuria, Frequency Musculoskeletal: Denies: Back pain, Extremity Pain Skin: Reports: Wounds. Denies: Rash Neurological: Reports: - - confusion. Denies: Headache, Weakness, Numbness Physical Exam Vital Signs/Narrative: Vital Signs Temp Pulse Resp BP Pulse Ox 08/18/19 11:24 97.6 F L 97 32 H 122/65 H 100 Inital Vital Signs reviewed: Yes General: Well nourished, Well developed, No Acute Distress Head: Normocephalic, Atraumatic Eyes: Perrl, EOMI ENT: Moist mucous membranes, No rhinorrhea Neck: Supple, Nontender Cardiovascular: Regular rate, Regular rhythm, No murmurs Respiratory: No distress, CTA bilaterally, Chest nontender Abdomen: Soft, Nontender, Nondistended, Normal bowel sounds Back: Nontender, Normal Inspection Extremities: Nontender, No edema Skin: - - stage V sacral wound Neurological: Alert, Oriented x3, Cranial nerves II-XII grossly intact, Normal Strength, Normal Sensation Psychological: Normal affect, Normal Mood Diagnostic/Tx/Re-eval Chest X-Ray - ED: 1 View, Read by ED Physician, - - Cardiomegaly without infiltrate. Clinical Impression(s) from Imaging Studies Abdomen/Pelvis CT 08/18/19 11:37 IMPRESSION: Hepatomegaly and fatty infiltration of the liver. Right-sided double-J stent catheter with the proximal tip in the right mid pole calyces of the right kidney and the distal tip within the urinary bladder. Small cyst in the left kidney. Diffuse bladder wall thickening. The balloon of a Chakraborty catheter is seen within the prostatic urethra. Stable large soft tissue defect overlying the sacrum. Electronically Signed: Erwin Lazo, at 13:14 EDT , Service support , Chest X-Ray 08/18/19 12:40 IMPRESSION: Status post CABG. Cardiomegaly. Electronically Signed: Erwin Lazo, at 13:09 EDT , Service support , Laboratory Data 08/18/19 08/18/19 08/18/19 11:45 11:45 11:45 WBC 28.7 H RBC 4.36 L Hgb 12.7 L Hct 41.6 MCV 95.4 H MCH 29.1 MCHC 30.5 L RDW Std Deviation 55.9 H RDW Coeff of Tio 15.9 H Plt Count 484 H MPV 9.1 Immature Gran % (Auto) 3.800 H Neut % (Auto) 77.2 H Lymph % (Auto) 8.6 L [place] % (Auto) 10.0 Eos % (Auto) 0.1 Baso % (Auto) 0.3 Absolute Neuts (auto) 22.2 H Absolute Lymphs (auto) 2.48 Nucleated RBC % 0 Differential Comment Diff Path Review May foll Platelet Estimate ADEQUATE RBC Morphology NORM C+C PT 14.6 INR 1.2 APTT 32.6 Sodium 140 Potassium 4.7 Chloride 107 Carbon Dioxide 28.0 Anion Gap 5 BUN 35 H Creatinine 1.00 Estim Creat Clear Calc 92.11 Est GFR (MDRD) Af Amer 99 Est GFR (MDRD) Non-Af 82 BUN/Creatinine Ratio 35.1 H Glucose 141 H Lactic Acid Calcium 9.1 Total Bilirubin 0.50 AST 44 H ALT 49 Alkaline Phosphatase 125 H Troponin I < 0.015 Total Protein 8.0 Albumin 2.1 L Globulin 5.9 H Albumin/Globulin Ratio 0.4 L Urine Color Urine Clarity Urine pH Ur Specific [place] Urine Protein Urine Glucose (UA) Urine Ketones Urine Occult Blood Urine Nitrite Urine Bilirubin Urine Urobilinogen Ur Leukocyte Esterase Urine RBC Urine WBC Ur Squamous Epith Cells Urine Bacteria Urine Mucus Urine Yeast 08/18/19 08/18/19 11:45 12:05 WBC RBC Hgb Hct MCV MCH MCHC RDW Std Deviation RDW Coeff of Tio Plt Count MPV Immature Gran % (Auto) Neut % (Auto) Lymph % (Auto) [place] % (Auto) Eos % (Auto) Baso % (Auto) Absolute Neuts (auto) Absolute Lymphs (auto) Nucleated RBC % Differential Comment Diff Path Review Platelet Estimate RBC Morphology PT INR APTT Sodium Potassium Chloride Carbon Dioxide Anion Gap BUN Creatinine Estim Creat Clear Calc Est GFR (MDRD) Af Amer Est GFR (MDRD) Non-Af BUN/Creatinine Ratio Glucose Lactic Acid 2.3 H* Calcium Total Bilirubin AST ALT Alkaline Phosphatase Troponin I Total Protein Albumin Globulin Albumin/Globulin Ratio Urine Color Yellow Urine Clarity Sl. Cloudy Urine pH 5.0 Ur Specific [place] 1.020 Urine Protein 30 H Urine Glucose (UA) Normal Urine Ketones 5 H Urine Occult Blood 250 H Urine Nitrite Negative Urine Bilirubin Negative Urine Urobilinogen Normal Ur Leukocyte Esterase 500 H Urine RBC 25-50 SEEN Urine WBC 25-50 SEEN Ur Squamous Epith Cells 0-5 SEEN Urine Bacteria 1+ Urine Mucus 0 SEEN Urine Yeast 2+ - Rhythm Strip Rhythm Strip: Sinus Rhythm Rate: 96 Ectopy: None - EKG Initial EKG Interpretation: Sinus Rhythm - Sinus rhythm at 96 bpm. MS interval of 162 ms. QTC of 452 ms. Left axis deviation. Nonspecific ST changes. No significant elevation or depression at this time. - Medical Decision Making Patient is confused on initial evaluation. EMS had placed the patient on dopamine infusion without fluid bolus. This infusion was stopped and patient was given 1 L of normal saline. Blood pressure around 110 systolic. Patient had also been placed on noninvasive ventilation. This was removed and patient was weaned to 2 L nasal cannula. Leukocytosis of 28,000. Sacral wound appears necrotic. EKG nonischemic. Troponin negative. Urine shows evidence of infection. Patient was given meropenem as well as vancomycin. Lactic acid of 2.3. Blood cultures currently pending. Hospitalist paged to evaluated the patient. Patient's blood pressure did decrease follow her evaluation and patient will be given another 1 L of normal saline. Given the patient's tenuous fluid status he will be admitted to the intensive care unit. Spoke at length with the patient's about his critical status. Patient admitted in critical but stable condition. Systolic blood pressure of 96 with appropriate MAP at time of admission. - Critical Care Time Critical care time (excluding procedures): 30-74 minutes, Discussing w/Patient &/or Family/Manager Telemarketing, Discussing w/Consultants, Arranging Admission or Transfer, Performing Direct Patient Care at Bedside ED Disposition - Plan for ED Patient: Disposition: Home or Assisted Living Diagnosis: Severe sepsis, Sacral wound, UTI (urinary tract infection)
--- NOTE | 2019-08-18 11:37 | CT_ITS ---
STUDY: CT ABDOMEN AND PELVIS WITH CONTRAST REASON FOR EXAM: Male, 58 years old. ABD PAIN, HALLUCINATIONS, LOW BP RADIATION DOSAGE (If Supplied By Facility): CTDIvol = ( 30.36 ) mGy, DLP = ( 1486.22 ) mGycm TECHNIQUE: Transaxial images were obtained from the dome of the diaphragm to the symphysis pubis without oral contrast. IV 100mL Isovue-300 was administered. Sagittal and coronal images were reconstructed. Individualized dose optimization techniques were used for this CT. COMPARISON: None. FINDINGS: Mild degree of increased linear markings at the lung bases slightly more prominent on the right side suggestive of atelectasis. Prior CABG. Coronary artery calcification. There is decreased attenuation of the liver consistent with steatosis. Hepatomegaly. There is a solitary gallstone. Normal spleen. Normal pancreas. Normal bilateral adrenal glands. There is a 2.4 cm x 1.7 cm cyst in the inferior medial aspect of the right kidney. A right-sided double-J stent catheter is seen. Mild degree of the right perinephric stranding. 1 cm cyst in the lateral inferior aspect of the left kidney. Normal visualized stomach. Normal small intestine. Normal colon. The appendix is visualized and appears normal. There is diffuse atherosclerotic calcification of the abdominal aorta, without a demonstrated aneurysm. Normal inferior vena cava. Normal retroperitoneum. Mild degree of diffuse bladder wall thickening. There are prostatic calcifications. The balloon of the Chakraborty catheter is seen within the prostatic urethra. There is evidence of a large soft tissue defect overlying the posterior sacrum in keeping with the patient''s history of decubitus ulceration and debridement. There are diffuse degenerative changes of the visualized lumbar spine. CT/Abdomen/Pelvis W IV Cont ONLY IMPRESSION: Hepatomegaly and fatty infiltration of the liver. Right-sided double-J stent catheter with the proximal tip in the right mid pole calyces of the right kidney and the distal tip within the urinary bladder. Small cyst in the left kidney. Diffuse bladder wall thickening. The balloon of a Chakraborty catheter is seen within the prostatic urethra. Stable large soft tissue defect overlying the sacrum. Electronically Signed: Erwin Lazo, at 13:14 EDT , Service support ,
--- NOTE | 2019-08-18 11:38 | ED.RN ---
DOPAMINE HUNG AND BIPAP STARTED BY EMS. DOPAMINE AND BIPAP STOPPED ON ARRIVAL PER DR MONTIEL REQUEST. BP 122/65 PULSE OX 100%
[2019-08-18 12:01] LABS: Absolute Lymphocyte Count 2.48 X10^3/uL (0.83-4.51); Absolute Neutrophil Count 22.2 X10^3/uL (2.0-7.7); Basophil% 0.3 % (0-1); Eosinophil# 0.02 X10^3/uL; Eosinophils% 0.1 % (0-5); Hematocrit 41.6 % (40-54); Hemoglobin 12.7 g/dL (13.0-16.5); Lymphocyte # 2.48 X10^3/ul (4.0); Lymphocyte % 8.6 % (19-41); Mean Corp Hgb Conc 30.5 g/dL (32-36); Mean Corpuscular Hgb 29.1 pg (27.0-32.0); Mean Corpuscular Volume 95.4 fL (80-94); Mean Platelet Vol. 9.1 fl (6.2-12.0); Monocyte# 2.88 X10^3/uL; NRBC Flagged by Analyzer 0 % (0-5); Neutrophil # 22.15 X10^3/uL (2.7-7.7); Neutrophil % 77.2 % (47-70); POSITIVE DIFFERENTIAL YES; Platelet Count 484 K/mm3 (150-450); RBC Distribution Width CV 15.9 % (11.6-14.6); RBC Distribution Width SD 55.9 fl (35.1-43.9); Red Blood Count 4.36 M/mm3 (4.6-6.2); White Blood Count 28.7 K/mm3 (4.4-11.0)
[2019-08-18 12:03] LABS: Differential Indicated SCAN CRITERIA MET
[2019-08-18] MEDS: 0.9% Normal Saline 1,000 ML 999 ML IV ×3 (12:05→16:10)
[2019-08-18 12:12] LABS: Mucous, Urine 0 SEEN /hpf (<or=2+)
[2019-08-18 12:13] LABS: ALB/GLOB Ratio 0.4 RATIO (0.9-2.4); AST(SGOT) 44 U/L (15-37); Alanine Aminotransfer ALT/SGPT 49 U/L (16-61); Albumin, Serum 2.1 g/dL (3.2-5.0); Alkaline Phosphatase 125 U/L (45-117); Anion Gap 5 (5-15); BUN 35 mg/dL (7-18); BUN/Creat Ratio 35.1 RATIO (10-20); Calcium,Total 9.1 mg/dL (8.5-10.1); Chloride 107 mmol/L (98-107); EST Glomerular Filtration Rate 82 mL/min (>60); Est Glom Filt Rate - Afr Amer 99 mL/min (>60); Estimated Creatinine Clearance 92.11 ml/min; Globulin 5.9 g/dL (2.2-4.2); Glucose 141 mg/dL (74-106); Potassium 4.7 mmol/L (3.5-5.1); Sodium Level 140 mmol/L (136-145)
[2019-08-18 12:14] LABS: Color, Urine Yellow (Yellow); Glucose, Dipstick Normal (Normal); Ketone-Dipstick 5 mg/dl (Negative); Leukocyte Esterase-Dipstick 500 /ul (Negative); Nitrite-Dipstick Negative (Negative); Occult Blood-Urine 250 /ul (Negative); Protein-Dipstick 30 mg/dl (Negative); Urine Bilirubin Dipstick Negative (Negative); Urine Clarity Sl. Cloudy (Clear); Urine Urobilinogen Normal (Normal)
[2019-08-18 12:23] LABS: International Normalized Ratio 1.2; Partial Thromboplast Time 32.6 Seconds (24.1-36.2); Prothrombin Time (Protime)PT. 14.6 SECONDS (11.7-14.9)
[2019-08-18 12:25] LABS: Bacteria 1+ /hpf (None Seen); Red Blood Cells-Urine 25-50 SEEN /hpf (0-5); Squamous Epithelial Cells - UA 0-5 SEEN /hpf (0-5); White Blood Cells 25-50 SEEN /hpf (0-5); Yeast-Urine 2+ /hpf (None Seen)
[2019-08-18 12:28] LABS: Lactic Acid 2.3 mmol/L (0.4-1.9)
--- NOTE | 2019-08-18 12:40 | RAD_ITS ---
STUDY: X-RAY CHEST REASON FOR EXAM: Male, 58 years old. EMS CALLED FOR HALLUCINATIONS. FOUND TO HAVE LOW BP AND PALE. ALTERED MENTAL STATUS. TECHNIQUE: Single AP portable view of the chest. COMPARISON: Comparison is made with prior study dated November 30, 2016. FINDINGS: The lungs are clear and expanded. There is no demonstrated pleural abnormality. Sternal cerclage wires and vascular clips are present from a prior sternotomy and coronary artery bypass graft procedure (CABG). Cardiomegaly. Normal mediastinum and tony. Normal visualized pulmonary arteries. There is atherosclerotic calcification of the aortic arch with tortuosity. Normal visualized thoracic spine. Normal visualized ribs, clavicles, and shoulders. There is no demonstrated abnormality of the visualized soft tissue structures of the upper abdomen. RAD/Chest 1 View (Portable) IMPRESSION: Status post CABG. Cardiomegaly. Electronically Signed: Erwin Lazo, at 13:09 EDT , Service support ,
[2019-08-18 12:44] LABS: Platelet Estimate ADEQUATE (ADEQ); Red Cell Morphology NORM C+C NORMAL (NORM C&C)
--- NOTE | 2019-08-18 13:02 | NURSING ---
DR WAQAS SHARIF
--- NOTE | 2019-08-18 13:53 | NURSING ---
PCU KORAM SEVERE SEPSIS
--- NOTE | 2019-08-18 13:56 | HP.PCM_ITS ---
History of Present Illness Date of Admission: 08/18/19 Chief Complaint: altered mental status The patient is a 58 year old M with an extensive past medical history as outlined was admitted through the ED from his extended care facility on 08/18/2019 with a complaint of altered mental status. History was taken mainly from his significant other as patient was confused. According to significant other, she was called in the early hours of today by his nurse that patient was more confused and his sacral decubitus ulcer looked black and so they were concerned it was infected and causing patient's confusion. She denies being told that he had any fever or chills, any cough or shortness of breath, any diarrhea vomiting and she does not know if anybody in the [facility]dc has had COVID. Patient was therefore brought into the ED. He was recently discharged from the hospital after having debridement done by Dr. Nguyễn for his decubitus ulcer. In the ED, vitals were significant for temperature of 98.3 Fahrenheit with respiratory rate of 19 though he was initially tachypneic with respiratory rate of 30. Pulse rate was down to 88 and was saturating at 99% on 2 L of oxygen. Chemistry showed lactic acid of 2.3 with sodium of 140 and bicarb of 28. Initial troponin was negative. BC showed WBC of 28.7 with hemoglobin of 12.7 and platelets of 484. Xavier pelvic CT showed hepatomegaly and fatty infiltration of the liver with right-sided double-J stent catheter with the proximal tip in the right mid pole calyces of the right kidney and distal tip within the urinary bladder with diffuse bladder wall thickening and large stable soft tissue defect overlying the sacrum. Chest x-ray showed cardiomegaly. Lactic acid was 2.3. UA showed evidence of UTI with 1+ bacteria. He has been admitted to be managed for sepsis due to infected cubitus ulcer UTI. He was started on IV vancomycin and meropenem in the ED.. [] Past Medical History Past Medical History (Chronic Problems): Chronic Problems (Last Updated 12/07/17 @ 08:57 by Shira Conte) Epilepsy (Chronic) Diabetes mellitus (Chronic) Smoker (Chronic) Pressure ulcer of sacral region, stage 4 (Chronic) Medical History: Medical History (Last Updated 12/07/17 @ 08:57 by Shira Conte) PAD (peripheral artery disease) (Acute) I73.9 Acute respiratory failure J96.00 CAD (coronary artery disease) I25.10 Depressive disorder F32.9 Epilepsy G40.909 Generalized muscle weakness M62.81 Metabolic encephalopathy G93.41 Pacemaker Z95.0 Pressure ulcer L89.90 CHF (congestive heart failure) I50.9 Diabetes E11.9 HTN (hypertension) I10 Heart disease I51.9 High triglycerides E78.1 Sleep apnea G47.30 Allergies Penicillins Allergy (Mild, Verified 08/18/19 12:09) rash Home Medications: Ambulatory Orders Medication Instructions Recorded Acetaminophen [Tylenol] 650 mg PO Q6H PRN 07/21/19 Cimetidine [Tagamet Hb] 100 mg PO DAILY 07/21/19 Docusate Sodium [Colace] 100 mg PO BID 07/21/19 Duloxetine Hcl [Cymbalta] 60 mg PO DAILY 07/21/19 Folic Acid 1 mg PO DAILY 07/21/19 Metformin HCl 2,000 mg PO DAILY 07/21/19 Metoprolol Tartrate [Lopressor] 100 mg PO BID 07/21/19 [place]-3 Fatty Acids/Fish Oil [Fish 1 ea PO DAILY 07/21/19 Oil 1,000 mg Capsule] Omeprazole 20 mg PO DAILY 07/21/19 Polyethylene Glycol 3350 [Miralax] 17 gm PO DAILY 07/21/19 Valproic Acid 750 mg PO TID 07/21/19 Argin/Glut/Cahmb/Collag/Mv-Min 1 ea PO BID 08/01/19 [Mike Packet] Aspirin [Aspirin, Baby] 81 mg PO DAILY@0800 08/04/19 Enoxaparin [Lovenox] 40 mg SUBCUT DAILY@0600 syringe 08/13/19 Oxycodone [Oxyir] 10 mg PO Q4H PRN PRN 7 Days #40 tab 08/13/19 proMETHazine tablet [Phenergan 25 mg PO Q4H PRN PRN tab 08/13/19 tablet] Atorvastatin Calcium [Lipitor] 80 mg PO QHS 08/18/19 Diazepam [Valium] 5 mg PO Q6H PRN 08/18/19 Diltiazem [Cardizem] 60 mg PO TID 08/18/19 Eravacycline [Xerava] 125 mg IV BID 08/18/19 Fenofibrate,Micronized 200 mg PO DAILY 08/18/19 [Fenofibrate] Lactobacillus Acidophilus 2 cap PO DAILY 08/18/19 [Acidophilus] Multivitamin 1 tab PO DAILY 08/18/19 Surgical History: Surgical History (Last Updated 12/07/17 @ 08:47 by Shira Conte) History of cataract extraction Z98.49 History of coronary artery bypass graft x 2 Z95.1 Cataract extraction status Z98.49 coronary artery bypass 4 01/2009 stents 2000, 2005 Surgical History: cataract, coronary bypass surgery, pacemaker implantation Lives: Correction Smoking Status: Current every day smoker Alcohol: None Drugs: None - *Family History Maternal Family History: Family History (Last Updated 12/07/17 @ 08:47 by Shira Conte) Father Lung cancer Brother Heart disease Myocardial infarction Mother Diabetes Hypertension Review of Systems Constitutional: Reports: Malaise, Weakness, Fatigue. Denies: Fever Neurological: Reports: Confusion Unable to obtain accurate/complete ROS d/t: patient is confused and not answering my questions VTE Information - Inpt Only VTE Present on Admission: No VTE Pharm Prophylaxis ordered?: Yes Patient Problems: Active and Suspected Problems (Last Updated 12/07/17 @ 08:57 by Shira Conte) Severe sepsis (Acute) Sacral wound (Acute) UTI (urinary tract infection) (Acute) - Physical Exam Vitals/I&O's: Vital Signs Temp Pulse Resp BP Pulse Ox 98.3 F 88 19 H 118/81 H 99 08/18/19 12:31 08/18/19 12:31 08/18/19 12:31 08/18/19 12:31 08/18/19 12:31 Oxygen Flow Rate (L/min) 5 Oxygen Delivery Method Nasal Cannula Weight: 279 lb 12.266 oz Body Mass Index (BMI) 36.8 Finger Stick Blood Glucose 191 General: Alert, Confused, Disoriented HEENT: Atraumatic, PERRLA, EOMI, Normocephalic Oral: Dry Mucosa Neck: Supple, No JVD, Negative Carotid Bruits Lungs: Clear to auscultation, Normal air movement, No rhonchi, No wheeze Cardiovascular: Normal S1, Normal S2, No murmurs, Tachycardic Abdomen: Bowel Sounds Present, Soft, Non Tender, Non-Distended, No Hepato- splenomegaly Extremities: No clubbing, No cyanosis, No edema, Capillary Refill Less than 3 Seconds, Cool - extremities cool to touch, Diminished Peripheral Pulses Skin: - - has sacral decubitus ulcer. Unable to examione ulcer as pateint was not cooperative Musculoskeletal: No Tenderness to Palpation of Joints or Extremities Lymphatic: No Cervical, Supraclavicular, or Inguinal Adenopathy Neurological: Cranial nerves II-XII grossly intact, Motor Exam 5/5 strength throughout Psych/Mental Status: - - confused Laboratory Results 08/18/19 11:45: WBC 28.7 H, RBC 4.36 L, Hgb 12.7 L, Hct 41.6, MCV 95.4 H, MCH 29.1, MCHC 30.5 L, RDW Std Deviation 55.9 H, RDW Coeff of Tio 15.9 H, Plt Count 484 H, MPV 9.1, Immature Gran % (Auto) 3.800 H, Neut % (Auto) 77.2 H, Lymph % (Auto) 8.6 L, Archuleta % (Auto) 10.0, Eos % (Auto) 0.1, Baso % (Auto) 0.3, Absolute Neuts (auto) 22.2 H, Absolute Lymphs (auto) 2.48, Nucleated RBC % 0, Differential Comment , Diff Path Review May , Platelet Estimate ADEQUATE, RBC Morphology NORM C+C 08/18/19 11:45: PT 14.6, INR 1.2, APTT 32.6 08/18/19 11:45: Sodium 140, Potassium 4.7, Chloride 107, Carbon Dioxide 28.0, Anion Gap 5, BUN 35 H, Creatinine 1.00, Estim Creat Clear Calc 92.11, Est GFR (MDRD) Af Amer 99, Est GFR (MDRD) Non-Af 82, BUN/Creatinine Ratio 35.1 H, Glucose 141 H, Calcium 9.1, Total Bilirubin 0.50, AST 44 H, ALT 49, Alkaline Phosphatase 125 H, Troponin I < 0.015, Total Protein 8.0, Albumin 2.1 L, Pearl bulin 5.9 H, Albumin/Globulin Ratio 0.4 L 08/18/19 11:45: Lactic Acid 2.3 H* 08/18/19 11:45: COVID-19 (ZHEN) Pending 08/18/19 12:05: Urine Color Yellow, Urine Clarity Sl. Cloudy, Urine pH 5.0, Ur Specific [place] 1.020, Urine Protein 30 H, Urine Glucose (UA) Normal, Urine Ketones 5 H, Urine Occult Blood 250 H, Urine Nitrite Negative, Urine Bilirubin Negative, Urine Urobilinogen Normal, Ur Leukocyte Esterase 500 H, Urine RBC 25- 50 SEEN, Urine WBC 25-50 SEEN, Ur Squamous Epith Cells 0-5 SEEN, Urine Bacteria 1+, Urine Mucus 0 SEEN, Urine Yeast 2+ Diagnostic Data Abdomen/Pelvis CT 08/18/19 11:37 IMPRESSION: Hepatomegaly and fatty infiltration of the liver. Right-sided double-J stent catheter with the proximal tip in the right mid pole calyces of the right kidney and the distal tip within the urinary bladder. Small cyst in the left kidney. Diffuse bladder wall thickening. The balloon of a Chakraborty catheter is seen within the prostatic urethra. Stable large soft tissue defect overlying the sacrum. Electronically Signed: Erwin Lazo, at 13:14 EDT , Service support , Chest X-Ray 08/18/19 12:40 IMPRESSION: Status post CABG. Cardiomegaly. Electronically Signed: Erwin Lazo, at 13:09 EDT , Service support , Current Medications Meropenem 1 gm/ Sodium (Chloride) 120 mls @ 33 mls/hr IV X1 ONE Stop: 08/18/19 15:12 Last Admin: 08/18/19 12:15 Dose: 200 mls/hr Documented by: Vancomycin HCl 1,500 mg/ (Sodium Chloride) 530 mls @ 250 mls/hr IV X1 ONE Stop: 08/18/19 14:37 Sodium Chloride () 1,000 mls @ 999 mls/hr IV .Q1H1M ONE Stop: 08/18/19 14:52 Iopamidol (Contrast Allergy Check) 0 ml IV X1 DAVE Assessment/Plan All Active Problems (Last Updated 12/07/17 @ 08:57 by Shira Conte) Severe sepsis (Acute) Sacral wound (Acute) UTI (urinary tract infection) (Acute) PAD (peripheral artery disease) (Acute) 58 y/o admitted with a complaint of altered mental status 1. Acute metabolic encephalopathy * Due to UTI and infected decubitus ulcer. * Admit to ICU on account of low blood pressure * CBC showed WBC of 28.7. Get blood cultures and urine cultures. * Did wound cultures and consult wound care and plastic surgery * Started on IV meropenem and vancomycin. Will continue. * Hydrated with IV fluid normal saline. * 2. Sepsis due to Infected decubitus ulcer and UTI * SIRS criteria is 3/4-tachycardia, tachypnea and leukocytosis as well as e levated lactic acid of 2.3. * Management as under 1. * Hydrated with normal saline as per sepsis protocol. Trend lactic acid. * 3. UTI: as under 1 and 2 3. Sacral decubitus ulcerL: as under 4. CAD status post CABG: On aspirin and statin. Is on metoprolol which is been held due to low blood pressure. 5. A. fib: * currently rate controlled, though he was tachcyardic on admission. * On p.o. metoprolol. Will hold as blood pressure was running low. * Being hydrated with IV fluids. * On Lovenox 40 mg subcu daily. * Also on Cardizem and will hold this due to low blood pressure. * Prophylaxis: On Lovenox. Will put on SCDs for now as Lovenox will be held since he may need debridement. CODE STATUS: Full code * Patient's significant other counseled extensively about different types of COD E STATUS including full code, DNR CCA and DNR CCA. She elects for patient to be full code. * Total [id number] time 17 minutes. Inpatient E&M: 18979 Init Hosp L3 Procedures: 54811 Advncd Care Plan 30 Min
--- NOTE | 2019-08-18 14:07 | NURSING ---
ICU 2 INFECTED DECUBITUS ULCER, SEPSIS KORAM
[2019-08-18 15:52] LABS: Reflex Lactate? Y
--- NOTE | 2019-08-18 16:04 | NURSING ---
wound photo: sacrum
[2019-08-18 16:24] LABS: Lactic Acid 2.3 mmol/L (0.4-1.9)
--- NOTE | 2019-08-18 17:26 | CON.PCM_ITS ---
- Consult Date of Consult: 08/18/19 - Reason for Consult Worsening sacral pressure sore, Stage IV, with underlying MRSA osteomyelitis. History of Present Illness Date of Service: 07/21/19 Chief Complaint: Sacral pressure sore, Stage IV. History of Wound: 58 year old man presents with a sacral pressure sore that has extended down to the bone. He developed seizures about 2 years ago and has been in an ECF since then and has been nonambulatory. He denies fever. He complains of pain in the sacral pressure sore. He presents at this time for further evaluation and treatment. Past Medical History Past Medical History: Chronic Problems (Last Updated 12/07/17 @ 08:57 by Shira Conte) Epilepsy (Chronic) Diabetes mellitus (Chronic) Smoker (Chronic) Pressure ulcer of sacral region, stage 4 (Chronic) Past Medical History: Diabetes mellitus. GERD. CRF. Depression. Hyperlipidemia. Epilepsy. CAD. History of suicide attempt. History of alcohol abuse. Hypertension Surgical History: cataract, coronary bypass surgery, pacemaker implantation Allergies/Adverse Reactions: Allergies Penicillins Allergy (Mild, Verified 07/21/19 13:43) rash Home Medications: Ambulatory Orders Medication Instructions Recorded Atorvastatin Calcium [Lipitor] 80 mg PO 03/26/18 Acetaminophen [Tylenol] 650 mg PO 07/21/19 Argin/Glut/Cahmb/Collag/Mv-Min 1 ea PO 07/21/19 [Mike Packet] Aspirin 81 mg PO 07/21/19 Cimetidine [Tagamet Hb] 100 mg PO 07/21/19 Diltiazem HCl 60 mg PO 07/21/19 Docusate Sodium [Colace] 100 mg PO 07/21/19 Duloxetine Hcl [Cymbalta] 60 mg PO 07/21/19 Fenofibrate [Tricor] 145 mg PO 07/21/19 Folic Acid 1 mg PO 07/21/19 Loperamide HCl [Imodium A-D] 2 mg PO 07/21/19 Metformin HCl 1,000 mg PO 07/21/19 Metoprolol Tartrate [Lopressor] 100 mg PO 07/21/19 Multivitamin 1 tab PO 07/21/19 Nystatin Powder [Mycostatin Powder] 1 applic TOPICAL 07/21/19 [place]-3 Fatty Acids/Fish Oil [Fish 1 ea PO 07/21/19 Oil 1,000 mg Capsule] Omeprazole 20 mg PO 07/21/19 Polyethylene Glycol 3350 [Miralax] 17 gm PO 07/21/19 Valproic Acid 3 cap PO 07/21/19 - Family History Maternal Family History: Family History (Last Updated 12/07/17 @ 08:47 by Shira Conte) Father Lung cancer Brother Heart disease Myocardial infarction Mother Diabetes Hypertension Lives: Retirement Smoking Status: Current some day smoker Alcohol: None - has history of alcohol abuse. Drugs: None Review of Systems Constitutional: Reports: Malaise, Fatigue. Denies: Chills, Fever Eyes: Reports: Cataracts HEENT: Denies: Nasal Congestion, Sore Throat Cardiovascular: Reports: - - has pacemaker. had CABG.. Denies: Chest Pain Respiratory: Reports: - - patient is a smoker.. Denies: Cough, Shortness of Breath Gastrointestinal: Denies: Constipation, Diarrhea, Nausea, Vomiting Genitourinary: Denies: Frequency, Hematuria Musculoskeletal: Denies: Arm Pain, Back Pain, Hand Pain, Neck Pain Skin: Reports: Wounds - has sacral pressure sore, Stage IV. Neurological: Reports: Seizures, -. Denies: Headaches Psychiatric: Reports: Depression Endocrine: Reports: - - has diabetes mellitus. Hematologic/ Lymphatic: Denies: Easy Bruising, Hx of blood clot - Physical Exam Vital Signs Temp Pulse Resp BP 97.1 F L 78 20 H 129/76 H 07/21/19 13:20 07/21/19 13:20 07/21/19 13:20 07/21/19 13:20 General: Alert, Oriented x3 HEENT: PERRLA, EOMI Oral: Moist Mucosa Neck: Supple Lungs: Clear to auscultation Cardiovascular: Regular rate, Regular Rhythm Abdomen: Soft, Non-Distended Extremities: No clubbing, No cyanosis, Edema - mild edema in lower extremities., - - patient is nonambulatory. Skin: Ulcer/ Wound - has sacral pressure sore extending to the bone. Stage IV. Tender to palpation. Measures 3 x 6 x 1 cm. Wound Measurements and Assessment WC - Nurse 1 - General Ulcer Measurement Start: 07/21/19 13:20 Freq: Status: Active Protocol: Activity Type Activity Date Activity User E-Sign Co-Sign Detail Recorded Client Recorded Date Recorded By Document 07/21/19 13:20 [facility] [id number] 07/21/19 13:36 BMF 07/21/19 13:20 Wound Center Nurse 1 [Ulcer Assessment] #1 sacrum -Combined with other wound No -Current Size (cm) - Length 1.9 -Current Size (cm) - Width 5.5 -Current Size (cm) - Depth 0.5 -Total Square Cm 10.45 -Date of Last Picture (Recall this 07/21/19 field) -Photo Taken Yes -Epithelialization None Present -Tunneling No -Undermining/Tunneling Yes -Undermining/Tunneling Starts (O' 4 clock) -Undermining/Tunneling Ends (O'clock) 5 -Maximum Distance (cm) 0.4 -Circular Undermining No -Exudate Amt Small -Exudate Type Serosanguineous -Wound Margin Thickened & Rolled Under -Granulation Amt Medium (34-66%) -Granulation Quality Red -Necrosis Amt Medium (34-66%) -Necrotic Tissue Type Adherent Slough -Structure Exposed N/A -Texture (Rosalia-wound Skin Appearance) Assessed, Excoriation, Scarring -Moisture (Rosalia-wound Skin Appearance Assessed ) -Color (Rosalia-wound Skin Appearance) Assessed, Erythema,Rubor -Temperature (Rosalia-wound Skin No Abnormality Appearance) (Pt Warm) -Tenderness on Palpation (Rosalia-wound No Skin Appearance) -Ulcer Cleansing Wound Cleanser -Foul Odor after Cleansing No -Anesthetic Used 4% Lidocaine Solution WC - Nurse 2 - General Ulcer CM Notes Start: 07/21/19 13:20 Freq: Status: Active Protocol: Activity Type Activity Date Activity User E-Sign Co-Sign Detail Recorded Client Recorded Date Recorded By Document 07/21/19 14:15 ESTELA [id number] 07/21/19 14:17 ESETLA 07/21/19 14:15 Wound Center Nurse 2 [Procedure/Treatment] -Time 14:15 -Correct Patient Yes -Correct Side, Site, Position Yes -Correct Procedure Yes -Procedure Performed Yes -Type of Procedure Debridement -Clinical Debridement Subcutaneous -Post Debridement Size (cm) - Length 2.0 -Post Debridement Size (cm) - Width 5.5 -Post Debridement Size (cm) - Depth 0.5 -Total Square Cm 11.00 -Wound/Ulcer Outcome Not Healed -Ulcer Cleansing Rinsed/ Irrigated with Saline -Foul Odor after Cleansing No -Bioengineered Tissue No -Bleeding Controlled with Pressure -Offloading No -Treatment Response Procedure Tolerated Well [See Physician Procedure note for Specifics] Pain Scale: 0-10 Numeric [Pain] -Is Patient Pain Free? Yes Musculoskeletal: - - patient is nonambulatory. Lymphatic: No Cervical, Supraclavicular, or Inguinal Adenopathy Neurological: Cranial nerves II-XII grossly intact Psych/Mental Status: Normal Affect, Appropriate Debridement Note Post-Debridement Measurements/Treatment WC - Nurse 2 - General Ulcer CM Notes Start: 07/21/19 13:20 Freq: Status: Active Protocol: Activity Type Activity Date Activity User E-Sign Co-Sign Detail Recorded Client Recorded Date Recorded By Document 07/21/19 14:15 ESTELA [id number] 07/21/19 14:17 ESTELA 07/21/19 14:15 Wound Center Nurse 2 #1 sacrum -Time 14:15 -Correct Patient Yes -Correct Side, Site, Position Yes -Correct Procedure Yes -Procedure Performed Yes -Type of Procedure Debridement -Clinical Debridement Subcutaneous -Post Debridement Size (cm) - Length 2.0 -Post Debridement Size (cm) - Width 5.5 -Post Debridement Size (cm) - Depth 0.5 -Total Square Cm 11.00 -Wound/Ulcer Outcome Not Healed -Ulcer Cleansing Rinsed/ Irrigated with Saline -Foul Odor after Cleansing No -Bioengineered Tissue No -Bleeding Controlled with Pressure -Offloading No -Treatment Response Procedure Tolerated Well Pain Scale: 0-10 Numeric Is Patient Pain Free? Yes Wound debrided: #1 Sacral area. Laterality: Not Applicable Wound Grade/Stage: IV. Type of Debridement: Excisional debridement Anesthesia Used: 4% Lidocaine Solution Depth: Down to and including healthy tissue, in the subcutaneous layer, to bone - bone is palpable but not exposed. Percentage of wound debrided: 100 Instrument Used: 5mm curette Tissue Removed: subcutaneous tissue. Severity: Fat Layer Exposed - bone is palpable but not debrided. Amount of bleeding with debridement: Mild Bleeding Controlled with: Pressure Patient tolerated procedure well Assessment/Plan Assessment: 1. Sacral pressure sore, Stage IV. 2. Diabetes mellitus. 3. PAD. 4. Epilepsy. 5. Smoker. Plan: Recommend excision of this sacral pressure sore. I anticipate bone inv olvement and a partial ostectomy for osteomyelitis would also be performed. Will send half the tissue and half the bone to Pathology for analysis to rule out carcinoma and to evaluate for osteomyelitis. Will send half the tissue and half the bone to Microbiology for culture. A positive culture will necessitate antibiotic therapy. Surgery will be done under general anesthesia with a surgical observation overnight stay in the hospital. During this time will obtain a CT Pelvis. Will also check a HgbA1c. Before wound closure with a myocutaneous flap, the HgbA1c needs to be less than 8. Anticipate increased metabolic demands from this pressure sore. Will check a Prealbumin and encourage nutritional supplementation with protein to help the healing process. Until surgery, proceed with Dakin's dressing changes twice a day at the [facility]. After surgery, will begin postop wound care with the VAC. Patient was informed of the risks and complications of the procedure including alternatives to surgery. These were discussed with him personally. He voices understanding and wishes to proceed. Encouraged the patient to stop smoking as it may have deleterious effects on wound healing. At the [facility], he needs a specialty bed such as a low air loss bed to minimize pressure issues. Pressure releases are important as well. He can be in a wheelchair with a specialty cushion as long as pressure releases are done. Essential Procedure Criteria Procedure Essential: Yes Criteria Note: On 04/22/2019 the [place] Department of Health ([facility]) Public Order signed by [facility] Director Emilie Webb M.D., regarding the Management of Non- Essential Surgeries and Procedures for the purpose of preserving Personal Protective Equipment (PPE) and critical hospital capacity and resources within [place] went into effect as of 04/23/2019 at 5:00PM. According to the [facility] Public Order: This action will remain in full force and effect until the State of Emergency declared by the Governor no longer exists or the Director of the [facility] rescinds or modifies this Order.. This [facility] order stated all non-essential or elective surgeries and procedures that utilize PPE should be delayed unless there is undue risk to the current or future health of a patient. After reviewing the aforementioned [facility] Public Order and the patients clinical case, I have determined that the scheduled procedure meets the criteria to go forward. Risk to Patient if Procedure Delayed: Risk of rapidly worsening to severe symptoms if delayed - patient developed a large sacral pressure sore with underlying bone involvement and is at risk for developing osteomyelitis.
[2019-08-18 17:41] LABS: Bedside Glucose 122 mg/dL (70-110)
[2019-08-18 18:10] LABS: M R Staph aureus DNA By PCR Negative (Negative); Probe Check PASS; Specimen Processing Control PASS; Staph aureus DNA By PCR NEGATIVE (Negative)
--- NOTE | 2019-08-18 21:08 | PCM.RX.CS ---
Consult Pharmacy has been consulted to manage selected antiobiotic: Vancomycin Type of Consult: New start Suspected Infection: Sepsis Prior Doses of Antibiotics Received/Current Regimen: Vancomycin 1500mg iv x1 in the ER Labs: Sodium 140 mmol/L (136-145) 08/18/19 11:45 Potassium 4.7 mmol/L (3.5-5.1) 08/18/19 11:45 Chloride 107 mmol/L (98-107) 08/18/19 11:45 Carbon Dioxide 28.0 mmol/L (21.0-32.0) 08/18/19 11:45 Anion Gap 5 (5-15) 08/18/19 11:45 BUN 35 mg/dL (7-18) H 08/18/19 11:45 Creatinine 1.00 mg/dL (0.70-1.30) 08/18/19 11:45 Est GFR (MDRD) Af Amer 99 mL/min (>60) 08/18/19 11:45 Est GFR (MDRD) Non-Af 82 mL/min (>60) 08/18/19 11:45 BUN/Creatinine Ratio 35.1 RATIO (10-20) H 08/18/19 11:45 Glucose 141 mg/dL (74-106) H 08/18/19 11:45 Goal Trough: 15-20 mcg/mL Pharmacy Plan for Drug Dosing: NEW START IV VANCOMYCIN Consulting Physician: Ugo Indication: sepsis Goal Trough: 15-20 SrCr: 1.0 CrCl: 105.37 (based off of adjusted body weight of 93.66kg) Comments: pt also on eravacycline Vancomcyin Dose: 1500mg x1 in er, 1500mg q8h (,) Pending Level: 08/18 @ 1230 Pharmacy Service will continue to monitor and adjust dosing as required. Follow-Up Labs: Trough Vancomycin - 08/18 @ 1235
[2019-08-18] MEDS: Divalproex Sodium 250 MG Tablet 750 MG PO (22:06)
[2019-08-18] MEDS: Atorvastatin Calcium 80 MG Tablet PO (22:09)
[2019-08-18] MEDS: Docusate Sodium 100 MG Capsule PO (22:09)
[2019-08-18 22:46] LABS: Bedside Glucose 95 mg/dL (70-110)
[2019-08-19] VITALS (31 sets, daily range): BP systolic 72–130; BP diastolic 45–73; PULSE 117–130; RESP 15–35; TEMP 36.2–37.9; O2SAT 90–99
[2019-08-19] MEDS: Morphine 2 MG/ML Syringe IV ×4 (01:32→17:12)
[2019-08-19] MEDS: 0.9% Saline Lock 10 ML Syringe IV ×3 (01:33→17:12)
[2019-08-19 05:10] LABS: Absolute Lymphocyte Count 1.66 X10^3/uL (0.83-4.51); Absolute Neutrophil Count 19.1 X10^3/uL (2.0-7.7); Basophil# 0.08 X10^3/uL; Basophil% 0.3 % (0-1); Eosinophil# 0.02 X10^3/uL; Eosinophils% 0.1 % (0-5); Hematocrit 35.1 % (40-54); Hemoglobin 10.5 g/dL (13.0-16.5); Lymphocyte # 1.66 X10^3/ul (4.0); Lymphocyte % 7.2 % (19-41); Mean Corp Hgb Conc 29.9 g/dL (32-36); Mean Corpuscular Hgb 28.8 pg (27.0-32.0); Mean Corpuscular Volume 96.4 fL (80-94); Mean Platelet Vol. 9.3 fl (6.2-12.0); Monocyte# 1.97 X10^3/uL; Monocyte% 8.5 % (0-10); NRBC Flagged by Analyzer 0 % (0-5); Neutrophil # 19.14 X10^3/uL (2.7-7.7); Neutrophil % 82.6 % (47-70); POSITIVE DIFFERENTIAL YES; Platelet Count 411 K/mm3 (150-450); RBC Distribution Width CV 16.2 % (11.6-14.6); RBC Distribution Width SD 57.4 fl (35.1-43.9); Red Blood Count 3.64 M/mm3 (4.6-6.2); White Blood Count 23.2 K/mm3 (4.4-11.0)
[2019-08-19 05:13] LABS: Differential Indicated SCAN CRITERIA MET
[2019-08-19 05:24] LABS: Anion Gap 7 (5-15); BUN 33 mg/dL (7-18); BUN/Creat Ratio 35.9 RATIO (10-20); Calcium,Total 8.5 mg/dL (8.5-10.1); Chloride 109 mmol/L (98-107); Creatinine, Serum 0.92 mg/dL (0.70-1.30); EST Glomerular Filtration Rate 90 mL/min (>60); Est Glom Filt Rate - Afr Amer 109 mL/min (>60); Estimated Creatinine Clearance 88.59 ml/min; Glucose 125 mg/dL (74-106); Potassium 4.1 mmol/L (3.5-5.1); Sodium Level 142 mmol/L (136-145)
[2019-08-19 05:28] LABS: Differential Comment SCANNED
--- NOTE | 2019-08-19 06:42 | PCM.CON.CC ---
Reason for Consult Date of Consultation: 08/19/19 Reason for Consultation: Severe sepsis History of Present Illness: The patient is a 58-year-old male, with a history as outlined below, who initially presented to the emergency department on August 17 with altered mentation. The patient was residing in an extended care facility in [place] after being discharged from the hospital on August 12 following an admission for a chronic sacral decubitus ulcer, requiring surgical intervention on August 03. The patient was placed on antimicrobials under the discretion of infectious diseases. The patient apparently has a history of seizures, which has left him nonambulatory for several years. On presentation to the emergency department, the patient was initially noted to be afebrile and hemodynamically stable. Laboratory evaluation revealed an elevated white blood cell count to 28,000. Coagulation profile was within normal limits. Chemistry profile was unremarkable. Lactate was elevated to 2.3. Troponin was negative. UA was positive for leukocyte esterase and 1+ urine bacteria. COVID PCR was negative. MRSA screen was negative. CT abdomen/pelvis revealed diffuse bladder wall thickening along with a stable large soft tissue defect overlying the sacrum. Plain film chest x-ray revealed no acute cardiopulmonary process. The patient received supplemental IV fluid hydration and was started on broad-spectrum antimicrobials. He was subsequently admitted to the medical intensive care unit for further management. Past Medical History Past Medical History (Chronic Problems): Chronic Problems (Last Updated 12/07/17 @ 08:57 by Shira Conte) Epilepsy (Chronic) Diabetes mellitus (Chronic) Smoker (Chronic) Pressure ulcer of sacral region, stage 4 (Chronic) Medical History: Medical History (Last Updated 12/07/17 @ 08:57 by Shira Conte) PAD (peripheral artery disease) (Acute) I73.9 Acute respiratory failure J96.00 CAD (coronary artery disease) I25.10 Depressive disorder F32.9 Epilepsy G40.909 Generalized muscle weakness M62.81 Metabolic encephalopathy G93.41 Pacemaker Z95.0 Pressure ulcer L89.90 CHF (congestive heart failure) I50.9 Diabetes E11.9 HTN (hypertension) I10 Heart disease I51.9 High triglycerides E78.1 Sleep apnea G47.30 Allergies Penicillins Allergy (Mild, Verified 08/18/19 12:09) rash Home Medications: Ambulatory Orders Medication Instructions Recorded Acetaminophen [Tylenol] 650 mg PO Q6H PRN 07/21/19 Cimetidine [Tagamet Hb] 100 mg PO DAILY 07/21/19 Docusate Sodium [Colace] 100 mg PO BID 07/21/19 Duloxetine Hcl [Cymbalta] 60 mg PO DAILY 07/21/19 Folic Acid 1 mg PO DAILY 07/21/19 Metformin HCl 2,000 mg PO DAILY 07/21/19 Metoprolol Tartrate [Lopressor] 100 mg PO BID 07/21/19 Grawn-3 Fatty Acids/Fish Oil [Fish 1 ea PO DAILY 07/21/19 Oil 1,000 mg Capsule] Omeprazole 20 mg PO DAILY 07/21/19 Polyethylene Glycol 3350 [Miralax] 17 gm PO DAILY 07/21/19 Valproic Acid 750 mg PO TID 07/21/19 Argin/Glut/Cahmb/Collag/Mv-Min 1 ea PO BID 08/01/19 [Mike Packet] Aspirin [Aspirin, Baby] 81 mg PO DAILY@0800 08/04/19 Enoxaparin [Lovenox] 40 mg SUBCUT DAILY@0600 syringe 08/13/19 Oxycodone [Oxyir] 10 mg PO Q4H PRN PRN 7 Days #40 tab 08/13/19 proMETHazine tablet [Phenergan 25 mg PO Q4H PRN PRN tab 08/13/19 tablet] Atorvastatin Calcium [Lipitor] 80 mg PO QHS 08/18/19 Diazepam [Valium] 5 mg PO Q6H PRN 08/18/19 Diltiazem [Cardizem] 60 mg PO TID 08/18/19 Eravacycline [Xerava] 125 mg IV BID 08/18/19 Fenofibrate,Micronized 200 mg PO DAILY 08/18/19 [Fenofibrate] Lactobacillus Acidophilus 2 cap PO DAILY 08/18/19 [Acidophilus] Multivitamin 1 tab PO DAILY 08/18/19 Surgical History: Surgical History (Last Updated 12/07/17 @ 08:47 by Shira Conte) History of cataract extraction Z98.49 History of coronary artery bypass graft x 2 Z95.1 Cataract extraction status Z98.49 coronary artery bypass 4 01/2009 stents 2000, 2005 Surgical History: cataract, coronary bypass surgery, pacemaker implantation [facility]: [facility] Smoking Status: Current every day smoker Alcohol: None Drugs: None - *Family History Maternal Family History: Family History (Last Updated 12/07/17 @ 08:47 by Shira Conte) Father Lung cancer Brother Heart disease Myocardial infarction Mother Diabetes Hypertension Review of Systems Constitutional: Reports: Malaise, Fatigue Eyes: Denies: Blurred vision, Double vision HEENT: Denies: Head Aches, Sinus Congestion, Sinus Drainage Cardiovascular: Denies: Chest Pain, Palpitations Respiratory: Reports: Shortness of Breath Gastrointestinal: Denies: Abdominal Pain, Nausea, Vomiting Genitourinary: Denies: Dysuria Musculoskeletal: Reports: Back Pain, - - Sacral pain Skin: Reports: Wounds Neurological: Reports: Confusion. Denies: Focal weakness, Numbness, Tingling Psychiatric: Denies: Anxiety, Depression, Homicidal Ideations, Suicidal Ideations Hematologic/ Lymphatic: Reports: Anemia Patient Problems: Active and Suspected Problems (Last Updated 12/07/17 @ 08:57 by Shira Conte) Severe sepsis (Acute) Sacral wound (Acute) UTI (urinary tract infection) (Acute) Objective: The patient's most recent lab work, culture data and imaging studies have all been personally reviewed. Preliminary blood culture dated August 17 was positive for gram-negative rods. C. difficile was negative. Urine and wound cultures are pending. - Physical Exam Vitals/I&O's: Vital Signs Temp Pulse Resp BP Pulse Ox 100.2 F H 123 H 22 H 127/61 H 95 08/19/19 01:00 08/19/19 05:00 08/19/19 05:00 08/19/19 05:00 08/19/19 05:00 Oxygen Flow Rate (L/min) 2 Oxygen Delivery Method Room Air Weight: 280 lb 6.848 oz Body Mass Index (BMI) 41.7 Finger Stick Blood Glucose 191 Intake and Output for Last 24 Hours 08/17/19 08/18/19 08/19/19 23:59 23:59 23:59 Intake Total 4012.5 / 4012.5 580 / 580 Output Total 1600 / 1750 550 / 550 Balance 2412.5 / 2262.5 30 / 30 General: Alert, Confused, Disoriented HEENT: Atraumatic, Normocephalic Oral: No Gingival or Mucosal Lesions/ Ulcerations, Dry Mucosa Neck: Supple, No Nodes, Trachea Midline Lungs: No rhonchi, No wheeze, No rales, Diminished Cardiovascular: Normal S1, Normal S2, Tachycardic Abdomen: Bowel Sounds Present, Soft, Non Tender, Obese Extremities: No clubbing, No cyanosis, No edema Skin: Ulcer/ Wound - Sacral, present on admission Musculoskeletal: No Tenderness to Palpation of Joints or Extremities Lymphatic: No Cervical, Supraclavicular, or Inguinal Adenopathy Neurological: Cranial nerves II-XII grossly intact, - - No focal neurological deficits. Psych/Mental Status: Restless Labs (Last 48 Hours) 08/18/19 08/18/19 08/18/19 11:45 11:45 11:45 WBC 28.7 H RBC 4.36 L Hgb 12.7 L Hct 41.6 MCV 95.4 H MCH 29.1 MCHC 30.5 L RDW Std Deviation 55.9 H RDW Coeff of Tio 15.9 H Plt Count 484 H MPV 9.1 Immature Gran % (Auto) 3.800 H Neut % (Auto) 77.2 H Lymph % (Auto) 8.6 L [place] % (Auto) 10.0 Eos % (Auto) 0.1 Baso % (Auto) 0.3 Absolute Neuts (auto) 22.2 H Absolute Lymphs (auto) 2.48 Nucleated RBC % 0 Differential Comment Diff Path Review May foll Platelet Estimate ADEQUATE RBC Morphology NORM C+C PT 14.6 INR 1.2 APTT 32.6 Sodium 140 Potassium 4.7 Chloride 107 Carbon Dioxide 28.0 Anion Gap 5 BUN 35 H Creatinine 1.00 Estim Creat Clear Calc 92.11 Est GFR (MDRD) Af Amer 99 Est GFR (MDRD) Non-Af 82 BUN/Creatinine Ratio 35.1 H Glucose 141 H Lactic Acid Calcium 9.1 Total Bilirubin 0.50 AST 44 H ALT 49 Alkaline Phosphatase 125 H Troponin I < 0.015 Total Protein 8.0 Albumin 2.1 L Globulin 5.9 H Albumin/Globulin Ratio 0.4 L Urine Color Urine Clarity Urine pH Ur Specific [place] Urine Protein Urine Glucose (UA) Urine Ketones Urine Occult Blood Urine Nitrite Urine Bilirubin Urine Urobilinogen Ur Leukocyte Esterase Urine RBC Urine WBC Ur Squamous Epith Cells Urine Bacteria Urine Mucus Urine Yeast COVID-19 (ZHEN) S.aureus Protein A PCR MRSA (PCR) POC Glucose 08/18/19 08/18/19 08/18/19 11:45 11:45 12:05 WBC RBC Hgb Hct MCV MCH MCHC RDW Std Deviation RDW Coeff of Tio Plt Count MPV Immature Gran % (Auto) Neut % (Auto) Lymph % (Auto) [place] % (Auto) Eos % (Auto) Baso % (Auto) Absolute Neuts (auto) Absolute Lymphs (auto) Nucleated RBC % Differential Comment Diff Path Review Platelet Estimate RBC Morphology PT INR APTT Sodium Potassium Chloride Carbon Dioxide Anion Gap BUN Creatinine Estim Creat Clear Calc Est GFR (MDRD) Af Amer Est GFR (MDRD) Non-Af BUN/Creatinine Ratio Glucose Lactic Acid 2.3 H* Calcium Total Bilirubin AST ALT Alkaline Phosphatase Troponin I Total Protein Albumin Globulin Albumin/Globulin Ratio Urine Color Yellow Urine Clarity Sl. Cloudy Urine pH 5.0 Ur Specific [place] 1.020 Urine Protein 30 H Urine Glucose (UA) Normal Urine Ketones 5 H Urine Occult Blood 250 H Urine Nitrite Negative Urine Bilirubin Negative Urine Urobilinogen Normal Ur Leukocyte Esterase 500 H Urine RBC 25-50 SEEN Urine WBC 25-50 SEEN Ur Squamous Epith Cells 0-5 SEEN Urine Bacteria 1+ Urine Mucus 0 SEEN Urine Yeast 2+ COVID-19 (ZHEN) Not Detected S.aureus Protein A PCR MRSA (PCR) POC Glucose 08/18/19 08/18/19 08/18/19 15:43 15:43 16:10 WBC RBC Hgb Hct MCV MCH MCHC RDW Std Deviation RDW Coeff of Tio Plt Count MPV Immature Gran % (Auto) Neut % (Auto) Lymph % (Auto) [place] % (Auto) Eos % (Auto) Baso % (Auto) Absolute Neuts (auto) Absolute Lymphs (auto) Nucleated RBC % Differential Comment Diff Path Review Platelet Estimate RBC Morphology PT INR APTT Sodium Potassium Chloride Carbon Dioxide Anion Gap BUN Creatinine Estim Creat Clear Calc Est GFR (MDRD) Af Amer Est GFR (MDRD) Non-Af BUN/Creatinine Ratio Glucose Lactic Acid 2.3 H* Calcium Total Bilirubin AST ALT Alkaline Phosphatase Troponin I < 0.015 Total Protein Albumin Globulin Albumin/Globulin Ratio Urine Color Urine Clarity Urine pH Ur Specific [place] Urine Protein Urine Glucose (UA) Urine Ketones Urine Occult Blood Urine Nitrite Urine Bilirubin Urine Urobilinogen Ur Leukocyte Esterase Urine RBC Urine WBC Ur Squamous Epith Cells Urine Bacteria Urine Mucus Urine Yeast COVID-19 (ZHEN) S.aureus Protein A PCR NEGATIVE MRSA (PCR) Negative POC Glucose 08/18/19 08/18/19 08/18/19 17:37 18:25 22:42 WBC RBC Hgb Hct MCV MCH MCHC RDW Std Deviation RDW Coeff of Ito Plt Count MPV Immature Gran % (Auto) Neut % (Auto) Lymph % (Auto) [place] % (Auto) Eos % (Auto) Baso % (Auto) Absolute Neuts (auto) Absolute Lymphs (auto) Nucleated RBC % Differential Comment Diff Path Review Platelet Estimate RBC Morphology PT INR APTT Sodium Potassium Chloride Carbon Dioxide Anion Gap BUN Creatinine Estim Creat Clear Calc Est GFR (MDRD) Af Amer Est GFR (MDRD) Non-Af BUN/Creatinine Ratio Glucose Lactic Acid Calcium Total Bilirubin AST ALT Alkaline Phosphatase Troponin I < 0.015 Total Protein Albumin Globulin Albumin/Globulin Ratio Urine Color Urine Clarity Urine pH Ur Specific [place] Urine Protein Urine Glucose (UA) Urine Ketones Urine Occult Blood Urine Nitrite Urine Bilirubin Urine Urobilinogen Ur Leukocyte Esterase Urine RBC Urine WBC Ur Squamous Epith Cells Urine Bacteria Urine Mucus Urine Yeast COVID-19 (ZHEN) S.aureus Protein A PCR MRSA (PCR) POC Glucose 122 H 95 08/19/19 08/19/19 05:00 05:00 WBC 23.2 H RBC 3.64 L Hgb 10.5 L Hct 35.1 L MCV 96.4 H MCH 28.8 MCHC 29.9 L RDW Std Deviation 57.4 H RDW Coeff of Tio 16.2 H Plt Count 411 MPV 9.3 Immature Gran % (Auto) 1.300 H Neut % (Auto) 82.6 H Lymph % (Auto) 7.2 L [place] % (Auto) 8.5 Eos % (Auto) 0.1 Baso % (Auto) 0.3 Absolute Neuts (auto) 19.1 H Absolute Lymphs (auto) 1.66 Nucleated RBC % 0 Differential Comment SCANNED Diff Path Review May foll Platelet Estimate RBC Morphology PT INR APTT Sodium 142 Potassium 4.1 Chloride 109 H Carbon Dioxide 26.0 Anion Gap 7 BUN 33 H Creatinine 0.92 Estim Creat Clear Calc 88.59 Est GFR (MDRD) Af Amer 109 Est GFR (MDRD) Non-Af 90 BUN/Creatinine Ratio 35.9 H Glucose 125 H Lactic Acid Calcium 8.5 Total Bilirubin AST ALT Alkaline Phosphatase Troponin I Total Protein Albumin Globulin Albumin/Globulin Ratio Urine Color Urine Clarity Urine pH Ur Specific [place] Urine Protein Urine Glucose (UA) Urine Ketones Urine Occult Blood Urine Nitrite Urine Bilirubin Urine Urobilinogen Ur Leukocyte Esterase Urine RBC Urine WBC Ur Squamous Epith Cells Urine Bacteria Urine Mucus Urine Yeast COVID-19 (ZHEN) S.aureus Protein A PCR MRSA (PCR) POC Glucose Microbiology 08/19/19 00:45 Stool C. difficile DNA Amplification - Final 08/18/19 11:45 Blood Culture (Wb) - Pic Blood Culture - Preliminary Clinical Impression(s) from Imaging Studies Abdomen/Pelvis CT 08/18/19 11:37 IMPRESSION: Hepatomegaly and fatty infiltration of the liver. Right-sided double-J stent catheter with the proximal tip in the right mid pole calyces of the right kidney and the distal tip within the urinary bladder. Small cyst in the left kidney. Diffuse bladder wall thickening. The balloon of a Chakraborty catheter is seen within the prostatic urethra. Stable large soft tissue defect overlying the sacrum. Electronically Signed: Erwin Lazo, at 13:14 EDT , Service support , Chest X-Ray 08/18/19 12:40 IMPRESSION: Status post CABG. Cardiomegaly. Electronically Signed: Erwin Lazo, at 13:09 EDT , Service support , Current Medications Acetaminophen (Tylenol) 650 mg PO Q6H PRN PRN PRN Reason: Pain 1-10 or Fever Aspirin (Aspirin, Baby) 81 mg PO DAILY@0800 [facility] Atorvastatin Calcium (Lipitor) 80 mg PO QHS [facility] Last Admin: 08/18/19 22:09 Dose: 80 mg Documented by: Dextrose (D50w Syringe) 0 gm IV X1 PRN; Protocol PRN Reason: Hypoglycemia Diazepam (Valium) 5 mg PO Q6H PRN PRN PRN Reason: SPASMS Divalproex Sodium (Depakote) 750 mg PO TID [facility] Last Admin: 08/18/19 22:06 Dose: 750 mg Documented by: Docusate Sodium (Colace) 100 mg PO BID [facility] Last Admin: 08/18/19 22:09 Dose: 100 mg Documented by: Famotidine (Pepcid) 20 mg PO DAILY [facility] Fenofibrate (Tricor) 145 mg PO DAILY [facility] Folic Acid (Folic Acid) 1 mg PO DAILY@0800 [facility] Glucagon () 1 mg IM .X1 PRN PRN Reason: Hypoglycemia Vancomycin IV Pharmacy to Dose (1 ea/ Sodium Chloride) 500 mls @ 250 mls/hr IV X1 PRN; Protocol PRN Reason: Rx to Dose Meropenem 1 gm/ Sodium (Chloride) 120 mls @ 33 mls/hr IV Q8 [facility] Last Admin: 08/19/19 03:22 Dose: 33 mls/hr Documented by: Sodium Chloride () 250 mls @ 15 mls/hr IV .[id number] PRN PRN Reason: Saline Flush Sodium Chloride () 250 mls @ 15 mls/hr IV .[id number] PRN PRN Reason: Additional IVPB Infusion Norepinephrine Bitartrate 8 mg (/ Sodium Chloride) 250 mls @ 9.375 mls/hr CONT INF .[id number] [facility]; Protocol Last Admin: 08/18/19 18:54 Dose: Not Given Documented by: Vancomycin HCl 1,500 mg/ (Sodium Chloride) 530 mls @ 250 mls/hr IV Q8H [facility] Last Admin: 08/19/19 06:37 Dose: 250 mls/hr Documented by: Insulin Human Lispro (Humalog Kwikpen (Bkc)) 0 unit SC ACHS [facility]; Protocol Last Admin: 08/18/19 23:11 Dose: Not Given Documented by: Lactobacillus Acidophilus (Acidophilus) 2 tablet PO DAILY [facility] Morphine Sulfate () 2 mg IV Q3H PRN PRN PRN Reason: Pain Score 6-10/10 Last Admin: 08/19/19 01:32 Dose: 2 mg Documented by: Multivitamins (Multivitamin) 1 tablet PO DAILY@0800 [facility] Nutritional Formula (Mike - [place] Flavor) 1 packet PO BID [facility] Last Admin: 08/18/19 22:09 Dose: 1 packet Documented by: [id number] Ethyl Esters (Lovaza) 1 gm PO DAILY [facility] Oxycodone HCl (Oxyir) 5 mg PO Q4H PRN PRN PRN Reason: Pain Score 4-5/10 Pantoprazole Sodium (Protonix) 20 mg PO DAILY [facility] Polyethylene Glycol (Miralax) 17 gm PO DAILY [facility] Promethazine HCl (Phenergan Tablet) 25 mg PO Q4H PRN PRN PRN Reason: NAUSEA/VOMITING Sodium Chloride () 10 - 40 ml IV UD PRN PRN Reason: SALINE FLUSH Last Admin: 08/19/19 01:33 Dose: 40 ml Documented by: Sodium Hypochlorite (Dakins Solution 0.25% (1/2 Strength)) 1 applic TOPICAL BID DAVE Assessment/Plan Active and Suspected Problems (Last Updated 12/07/17 @ 08:57 by Shira Conte) Severe sepsis (Acute) Sacral wound (Acute) UTI (urinary tract infection) (Acute) RECOMMENDATIONS: 1. Continue empiric antimicrobials per infectious diseases recommendations. 2. Patient to remain n.p.o. for now. 3. Plans for sacral surgical debridement today followed by diverting ostomy tomorrow. 4. Transition Depakote to IV formulation. 5. Place arterial line per anesthesia request. IMPRESSIONS: 1. Severe sepsis The patient has evidence of gram-negative bacteremia, most likely secondary to hematogenous spread from his sacral wound. The patient will be continued on broad-spectrum antimicrobials per ID recommendations. He has been adequately volume resuscitated and remains hemodynamically stable. There are tentative plans for surgical debridement later today followed by diverting ostomy by general surgery tomorrow. 2. Metabolic encephalopathy Continue current supportive measures as noted above. The patient has not demonstrated any active seizure activity. We will plan to transition his Depakote over to IV formulation, given his n.p.o. status. 3. Coronary artery disease status post CABG/atrial fibrillation/unspecified seizure disorder/diabetes mellitus/GERD Complicates care, management, recovery and prognosis. Continue home medications as indicated. Physical therapy to hold on evaluation until surgical intervention has been performed. This note was generated with [employer] dictation software. It may contain incorrect words, spelling, and punctuation that were not noted in checking the note before signing. Inpatient E&M: 67811 Init Hosp L3
--- NOTE | 2019-08-19 07:30 | PRES_PTH ---
PATIENT: LUNA RICHARD LOC: [facility] U#:[id number] AGE/SX: 59/M ROOM: [facility] RE08/18/[address]: Dr. Cristopher Calvert MD : [id number] BED: 1 DIS: 09/05/2019 SPEC #: [id number] RECD: 08/19/19 15:55 STATUS: TIMOTHY REJuliet #: [id number] KYAW: 08/19/19 07:[address]: Dg Nguyễn DEPT: SURGICAL PATHOLOGY RECD BY: Thom Aguilar ENTERED: 08/20/19 11:14 SP TYPE: PRESS SORE OTHR DR: MD Dr. Bakari Jimenez Dr., DO Dr. David Kittoe, MD Dr. Daniel Peabody, MD Dr. Grabriel Galang, MD Dr. Marc Fiorentino, MD Dr. Mehrdad Tavallaee, MD Dr. Nana Yaa Koram, MD Dr. Robert D Cebul, MD Dr. Robert Leininger, MD Dr. 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 Bone of sacral area, biopsy: Acute osteomyelitis. B. Skin and soft tissue of sacral region, excision: Ulceration with associated acute and chronic inflammation and granulation. AM:nidia 08/25/19 MICROSCOPIC DESCRIPTION Slides are reviewed. GROSS DESCRIPTION A - Received in fixative is one container labeled with the patient's name and designated bone sacral area. The specimen consists of multiple fragments of bone that in aggregate measure 3 x 2.5 x 0.4 cm. The entire specimen is submitted in one cassette after decalcification. B - Received in fixative is one container labeled with the patient's name and designated soft tissue sacral area. The specimen consists of multiple pieces of skin with underlying tissue that in aggregate measure 10 x 9 x 3 cm. An extensive area of ulceration is noted. No mass lesion is identified. Mobile [employer]i Developer sections are submitted in two cassettes. / SJ:nidia 08/20/19 TC:2 CPT: 95040 x2, 47295
--- NOTE | 2019-08-19 07:38 | PCM.PN.HOSP ---
Patient Problems: Active and Suspected Problems (Last Updated 12/07/17 @ 08:57 by Shira Conte) Severe sepsis (Acute) Sacral wound (Acute) UTI (urinary tract infection) (Acute) Reason for Visit: Sepsis secondary to infected decubitus Subjective: Patient is a 58-year-old male admitted with altered mental status secondary to infected decubitus Objective: GENERAL: Patient remains lethargic HEENT: Atraumatic; EYES; Anicteric, Normal Conjunctiva NECK; supple, normal thyroid, RESPIRATORY: Diminished to auscultation CARDIOVASCULAR: Regular S1 S2, GI: soft, normoactive bowel sounds, : No Renal angle tenderness; EXTREMITIES: No edema, no clubbing, MUSCULOSKELETAL: no muscle waisting NEURO: Awake; no lateralizing signs. SKIN: Stage IV sacral decubitus PSYCH; Flat affect Vitals/I&O's: Vital Signs Temp Pulse Resp BP Pulse Ox 98.8 F 123 H 26 H 108/61 90 08/19/19 06:00 08/19/19 07:00 08/19/19 07:00 08/19/19 07:00 08/19/19 07:00 Oxygen Flow Rate (L/min) 2 Oxygen Delivery Method Room Air Weight: 127.2 kg Body Mass Index (BMI) 41.7 Finger Stick Blood Glucose 191 Intake and Output for Last 24 Hours 08/17/19 08/18/19 08/19/19 23:59 23:59 23:59 Intake Total 4012.5 / 4012.5 700.0 / 700.0 Output Total 1600 / 1750 750 / 750 Balance 2412.5 / 2262.5 -50.0 / -50.0 Microbiology Past 72 Hours 08/19/19 00:45 Stool C. difficile DNA Amplification - Final 08/18/19 11:45 Blood Culture (Wb) - Pic Blood Culture - Preliminary Laboratory Results 08/18/19 11:45: WBC 28.7 H, RBC 4.36 L, Hgb 12.7 L, Hct 41.6, MCV 95.4 H, MCH 29.1, MCHC 30.5 L, RDW Std Deviation 55.9 H, RDW Coeff of Tio 15.9 H, Plt Count 484 H, MPV 9.1, Immature Gran % (Auto) 3.800 H, Neut % (Auto) 77.2 H, Lymph % (Auto) 8.6 L, Swisher % (Auto) 10.0, Eos % (Auto) 0.1, Baso % (Auto) 0.3, Absolute Neuts (auto) 22.2 H, Absolute Lymphs (auto) 2.48, Nucleated RBC % 0, Differential Comment , Diff Path Review May , Platelet Estimate ADEQUATE, RBC Morphology NORM C+C 08/18/19 11:45: PT 14.6, INR 1.2, APTT 32.6 08/18/19 11:45: Sodium 140, Potassium 4.7, Chloride 107, Carbon Dioxide 28.0, Anion Gap 5, BUN 35 H, Creatinine 1.00, Estim Creat Clear Calc 92.11, Est GFR (MDRD) Af Amer 99, Est GFR (MDRD) Non-Af 82, BUN/Creatinine Ratio 35.1 H, Glucose 141 H, Calcium 9.1, Total Bilirubin 0.50, AST 44 H, ALT 49, Alkaline Phosphatase 125 H, Troponin I < 0.015, Total Protein 8.0, Albumin 2.1 L, Globulin 5.9 H, Albumin/Globulin Ratio 0.4 L 08/18/19 11:45: Lactic Acid 2.3 H* 08/18/19 11:45: COVID-19 (ZHEN) Not Detected 08/18/19 12:05: Urine Color Yellow, Urine Clarity Sl. Cloudy, Urine pH 5.0, Ur Specific Nunnelly 1.020, Urine Protein 30 H, Urine Glucose (UA) Normal, Urine Ketones 5 H, Urine Occult Blood 250 H, Urine Nitrite Negative, Urine Bilirubin Negative, Urine Urobilinogen Normal, Ur Leukocyte Esterase 500 H, Urine RBC 25-50 SEEN, Urine WBC 25-50 SEEN, Ur Squamous Epith Cells 0-5 SEEN, Urine Bacteria 1+, Urine Mucus 0 SEEN, Urine Yeast 2+ 08/18/19 15:43: Lactic Acid 2.3 H* 08/18/19 15:43: Troponin I < 0.015 08/18/19 16:10: S.aureus Protein A PCR NEGATIVE, MRSA (PCR) Negative 08/18/19 17:37: POC Glucose 122 H 08/18/19 18:25: Troponin I < 0.015 08/18/19 22:42: POC Glucose 95 08/19/19 05:00: WBC 23.2 H, RBC 3.64 L, Hgb 10.5 L, Hct 35.1 L, MCV 96.4 H, MCH 28.8, MCHC 29.9 L, RDW Std Deviation 57.4 H, RDW Coeff of Tio 16.2 H, Plt Count 411, MPV 9.3, Immature Gran % (Auto) 1.300 H, Neut % (Auto) 82.6 H, Lymph % (Auto) 7.2 L, Swisher % (Auto) 8.5, Eos % (Auto) 0.1, Baso % (Auto) 0.3, Absolute Neuts (auto) 19.1 H, Absolute Lymphs (auto) 1.66, Nucleated RBC % 0, Differential Comment SCANNED, Diff Path Review June08/19/19 05:00: Sodium 142, Potassium 4.1, Chloride 109 H, Carbon Dioxide 26.0, Anion Gap 7, BUN 33 H, Creatinine 0.92, Estim Creat Clear Calc 88.59, Est GFR (MDRD) Af Amer 109, Est GFR (MDRD) Non-Af 90, BUN/Creatinine Ratio 35.9 H, Glucose 125 H, Calcium 8.5 Current Medications Acetaminophen (Tylenol) 650 mg PO Q6H PRN PRN PRN Reason: Pain 1-10 or Fever Aspirin (Aspirin, Baby) 81 mg PO DAILY@0800 [facility] Atorvastatin Calcium (Lipitor) 80 mg PO QHS [facility] Last Admin: 08/18/19 22:09 Dose: 80 mg Documented by: Dextrose (D50w Syringe) 0 gm IV X1 PRN; Protocol PRN Reason: Hypoglycemia Diazepam (Valium) 5 mg PO Q6H PRN PRN PRN Reason: SPASMS Divalproex Sodium (Depakote) 750 mg PO TID [facility] Last Admin: 08/18/19 22:06 Dose: 750 mg Documented by: Docusate Sodium (Colace) 100 mg PO BID [facility] Last Admin: 08/18/19 22:09 Dose: 100 mg Documented by: Famotidine (Pepcid) 20 mg PO DAILY [facility] Fenofibrate (Tricor) 145 mg PO DAILY [facility] Folic Acid (Folic Acid) 1 mg PO DAILY@0800 [facility] Glucagon () 1 mg IM .X1 PRN PRN Reason: Hypoglycemia Vancomycin IV Pharmacy to Dose (1 ea/ Sodium Chloride) 500 mls @ 250 mls/hr IV X1 PRN; Protocol PRN Reason: Rx to Dose Meropenem 1 gm/ Sodium (Chloride) 120 mls @ 33 mls/hr IV Q8 [facility] Last Infusion: 08/19/19 06:38 Dose: Infused Documented by: Sodium Chloride () 250 mls @ 15 mls/hr IV .[id number] PRN PRN Reason: Saline Flush Sodium Chloride () 250 mls @ 15 mls/hr IV .[id number] PRN PRN Reason: Additional IVPB Infusion Norepinephrine Bitartrate 8 mg (/ Sodium Chloride) 250 mls @ 9.375 mls/hr CONT INF .[id number] [facility]; Protocol Last Admin: 08/18/19 18:54 Dose: Not Given Documented by: Vancomycin HCl 1,500 mg/ (Sodium Chloride) 530 mls @ 250 mls/hr IV Q8H [facility] Last Admin: 08/19/19 06:37 Dose: 250 mls/hr Documented by: Insulin Human Lispro (Humalog Kwikpen (Bkc)) 0 unit SC ACHS [facility]; Protocol Last Admin: 08/19/19 07:18 Dose: Not Given Documented by: Lactobacillus Acidophilus (Acidophilus) 2 tablet PO DAILY [facility] Morphine Sulfate () 2 mg IV Q3H PRN PRN PRN Reason: Pain Score 6-10/10 Last Admin: 08/19/19 01:32 Dose: 2 mg Documented by: Multivitamins (Multivitamin) 1 tablet PO DAILY@0800 [facility] Nutritional Formula (Mike - Atlantic Flavor) 1 packet PO BID [facility] Last Admin: 08/18/19 22:09 Dose: 1 packet Documented by: [id number] Ethyl Esters (Lovaza) 1 gm PO DAILY [facility] Oxycodone HCl (Oxyir) 5 mg PO Q4H PRN PRN PRN Reason: Pain Score 4-5/10 Pantoprazole Sodium (Protonix) 20 mg PO DAILY [facility] Polyethylene Glycol (Miralax) 17 gm PO DAILY [facility] Promethazine HCl (Phenergan Tablet) 25 mg PO Q4H PRN PRN PRN Reason: NAUSEA/VOMITING Sodium Chloride () 10 - 40 ml IV UD PRN PRN Reason: SALINE FLUSH Last Admin: 08/19/19 01:33 Dose: 40 ml Documented by: Sodium Hypochlorite (Dakins Solution 0.25% (/2 Strength)) 1 applic TOPICAL BID [facility] STROKE Vital Signs/Narrative: Vital Signs Temp Pulse Resp BP Pulse Ox 08/19/19 07:00 123 H 26 H 108/61 90 08/19/19 06:00 98.8 F 129 H 20 H 115/64 96 08/19/19 05:00 123 H 22 H 127/61 H 95 08/19/19 04:00 124 H 22 H 105/68 95 Medical Necessity - Tobacco Use Smoking Status: Current every day smoker Assessment/Plan All Active Problems (Last Updated 12/07/17 @ 08:57 by Shira Conte) Severe sepsis (Acute) Sacral wound (Acute) UTI (urinary tract infection) (Acute) PAD (peripheral artery disease) (Acute) Patient is a 58-year-old male admitted with altered mental status secondary to infected decubitus 1. Acute metabolic encephalopathy ?Due to combination of UTI and infected decubitus ulcer. Admitted to the intensive care unit where patient is currently being managed per protocol 2. Severe sepsis secondary to decubitus ulcer and UTI -Due to combination of UTI and infected decubitus ulcer. Admitted to the intensive care unit where patient is currently being managed per protocol 3. Infected stage IV sacral decubitus ulcer ?Patient presented with severe sepsis admitted to the intensive care unit started on broad-spectrum antibiotic therapy as well as IV fluid resuscitation. Consult was placed Dr. Nguyễn with plastic surgery as well as Dr. Crystal with general surgery for diverting colostomy creation 4. Cystitis ?Secondary to presence of indwelling Chakraborty catheter. On antibiotics cultures sent 5. Coronary artery disease -with previous CABG 6. Paroxysmal A. fib ?Rate controlled on beta-blockers and Cardizem in addition to Lovenox 7. Seizure disorder ?symptoms controlled on valproic acid 8. Hypertension - Blood pressure controlled, home medications continued with dose adjustment as needed 9. Dyslipidemia -Patient is on statin therapy, continued at home dose 10. Diabetes mellitus type II - Controlled metformin held on admission, placed on Accu-Cheks a.c. and at bedtime and covered with sliding scale insulin 11. DVT prophylaxis ?Lovenox 14. Morbid obesity with BMI of 41.4 Active Medications Acetaminophen (Tylenol) 650 mg PO Q6H PRN PRN PRN Reason: Pain 1-10 or Fever Aspirin (Aspirin, Baby) 81 mg PO DAILY@0800 [facility] Last Admin: 08/19/19 09:27 Dose: Not Given Documented by: Atorvastatin Calcium (Lipitor) 80 mg PO QHS [facility] Last Admin: 08/18/19 22:09 Dose: 80 mg Documented by: Dextrose (D50w Syringe) 0 gm IV X1 PRN; Protocol PRN Reason: Hypoglycemia Diazepam (Valium) 5 mg PO Q6H PRN PRN PRN Reason: SPASMS Docusate Sodium (Colace) 100 mg PO BID [facility] Last Admin: 08/19/19 09:30 Dose: Not Given Documented by: Famotidine (Pepcid) 20 mg PO DAILY [facility] Last Admin: 08/19/19 09:30 Dose: Not Given Documented by: Fenofibrate (Tricor) 145 mg PO DAILY [facility] Last Admin: 08/19/19 09:30 Dose: Not Given Documented by: Folic Acid (Folic Acid) 1 mg PO DAILY@0800 [facility] Last Admin: 08/19/19 09:27 Dose: Not Given Documented by: Glucagon () 1 mg IM .X1 PRN PRN Reason: Hypoglycemia Vancomycin IV Pharmacy to Dose (1 ea/ Sodium Chloride) 500 mls @ 250 mls/hr IV X1 PRN; Protocol PRN Reason: Rx to Dose Meropenem 1 gm/ Sodium (Chloride) 120 mls @ 33 mls/hr IV Q8 [facility] Last Admin: 08/19/19 08:03 Dose: 33 mls/hr Documented by: Sodium Chloride () 250 mls @ 15 mls/hr IV .[id number] PRN PRN Reason: Saline Flush Sodium Chloride () 250 mls @ 15 mls/hr IV .[id number] PRN PRN Reason: Additional IVPB Infusion Vancomycin HCl 1,500 mg/ (Sodium Chloride) 530 mls @ 250 mls/hr IV Q8H [facility] Last Infusion: 08/19/19 08:45 Dose: Infused Documented by: Tobramycin Sulfate 650 mg/ (Dextrose) 66.25 mls @ 100 mls/hr IV X1 ONE Stop: 08/19/19 10:39 Valproic Acid 750 mg/ Dextrose 57.5 mls @ 50 mls/hr IV Q8 [facility] Insulin Human Lispro (Humalog Kwikpen (Bkc)) 0 unit SC ACHS [facility]; Protocol Last Admin: 07/14/20 07:18 Dose: Not Given Documented by: Lactobacillus Acidophilus (Acidophilus) 2 tablet PO DAILY [facility] Last Admin: 08/19/19 09:30 Dose: Not Given Documented by: Metronidazole (Flagyl) 1,000 mg PO 1300,1400,2300 [facility] Stop: 08/19/19 23:01 Morphine Sulfate () 2 mg IV Q3H PRN PRN PRN Reason: Pain Score 6-10/10 Last Admin: 08/19/19 08:03 Dose: 2 mg Documented by: Multivitamins (Multivitamin) 1 tablet PO DAILY@0800 [facility] Last Admin: 08/19/19 09:27 Dose: Not Given Documented by: Neomycin Sulfate (Neomycin) 1,000 mg PO 1300,1400,2300 [facility] Stop: 08/19/19 23:01 Nutritional Formula (Mike - Atlantic Flavor) 1 packet PO BID [facility] Last Admin: 08/19/19 09:30 Dose: Not Given Documented by: [id number] Ethyl Esters (Lovaza) 1 gm PO DAILY [facility] Last Admin: 08/19/19 09:30 Dose: Not Given Documented by: Oxycodone HCl (Oxyir) 5 mg PO Q4H PRN PRN PRN Reason: Pain Score 4-5/10 Pantoprazole Sodium (Protonix) 20 mg PO DAILY [facility] Last Admin: 08/19/19 09:30 Dose: Not Given Documented by: Polyethylene Glycol (Miralax) 17 gm PO DAILY [facility] Last Admin: 08/19/19 09:30 Dose: Not Given Documented by: Promethazine HCl (Phenergan Tablet) 25 mg PO Q4H PRN PRN PRN Reason: NAUSEA/VOMITING Sodium Chloride () 10 - 40 ml IV UD PRN PRN Reason: SALINE FLUSH Last Admin: 08/19/19 08:03 Dose: 10 ml Documented by: Sodium Hypochlorite (Dakins Solution 0.25% (1/2 Strength)) 1 applic TOPICAL BID [facility] Inpatient E&M: [id number] [facility] L3
--- NOTE | 2019-08-19 09:14 | NURSING ---
Talked with Dr Crystal who plans to take patient for a diverting colostomy on 08/20/19. pt unable to stand. was able to sit pt up to assess abdominal folds. abdomen is large and rounded. placed stoma marking to the left lower abdomen making sure the marking is at least 3 fingerbreadths from the umbilicus. marked area with a skin pen and placed an opsite. surgery is scheduled for 1000 on 08/20/19. Dr Jones had talked to the significant other.
--- NOTE | 2019-08-19 09:20 | EKG12_ITS ---
Test Reason : Blood Pressure : / mmHG Vent. Rate : 096 BPM Atrial Rate : 096 BPM P-R Int : 162 ms QRS Dur : 112 ms QT Int : 358 ms P-R-T Axes : 057 -39 079 degrees QTc Int : 452 ms Normal sinus rhythm Possible Left atrial enlargement Left axis deviation Inferior infarct , age undetermined Poor R wave progression Abnormal ECG Confirmed by HAIR CERVANTES, FLAQUITA ([id number]), book editor HEVER CERVANTES ([id number]) on 08/20/2019 1:11:11 PM Referred By: DAYANA Confirmed By:FLAQUITA ARNDT MD
--- NOTE | 2019-08-19 09:24 | PCM.CONS.GEN ---
Problem List (1) Severe sepsis Status: Acute (2) Sacral wound Status: Acute Qualifiers: Encounter type: initial encounter Qualified Code(s): S31.000A - Unspecified open wound of lower back and pelvis without penetration into retroperitoneum, initial encounter Reason for Consult Date of Consultation: 08/19/19 Reason for Consultation: Diverting colostomy History of Present Illness: The patient is a 58 year old M admitted for sepsis and infection of sacral wound. The patient had debridement at the end of July for sacral wound. At the time he did not want a diverting colostomy. He is wheelchair-bound due to history of seizures for the last 2 years. He has soiled wound due to stool spillage. He has been in a fpc. He is not have any abdominal pain at this time only sacral pain. No nausea or vomiting. Past Medical History Past Medical History (Chronic Problems): Chronic Problems (Last Updated 12/07/17 @ 08:57 by Shira Conte) Epilepsy (Chronic) Diabetes mellitus (Chronic) Smoker (Chronic) Pressure ulcer of sacral region, stage 4 (Chronic) Medical History: Medical History (Last Updated 12/07/17 @ 08:57 by Shira Conte) PAD (peripheral artery disease) (Acute) I73.9 Acute respiratory failure J96.00 CAD (coronary artery disease) I25.10 Depressive disorder F32.9 Epilepsy G40.909 Generalized muscle weakness M62.81 Metabolic encephalopathy G93.41 Pacemaker Z95.0 Pressure ulcer L89.90 CHF (congestive heart failure) I50.9 Diabetes E11.9 HTN (hypertension) I10 Heart disease I51.9 High triglycerides E78.1 Sleep apnea G47.30 Allergies Penicillins Allergy (Mild, Verified 08/18/19 12:09) rash Home Medications: Ambulatory Orders Medication Instructions Recorded Acetaminophen [Tylenol] 650 mg PO Q6H PRN 07/21/19 Cimetidine [Tagamet Hb] 100 mg PO DAILY 07/21/19 Docusate Sodium [Colace] 100 mg PO BID 07/21/19 Duloxetine Hcl [Cymbalta] 60 mg PO DAILY 07/21/19 Folic Acid 1 mg PO DAILY 07/21/19 Metformin HCl 2,000 mg PO DAILY 07/21/19 Metoprolol Tartrate [Lopressor] 100 mg PO BID 07/21/19 [place]-3 Fatty Acids/Fish Oil [Fish 1 ea PO DAILY 07/21/19 Oil 1,000 mg Capsule] Omeprazole 20 mg PO DAILY 07/21/19 Polyethylene Glycol 3350 [Miralax] 17 gm PO DAILY 07/21/19 Valproic Acid 750 mg PO TID 07/21/19 Argin/Glut/Cahmb/Collag/Mv-Min 1 ea PO BID 08/01/19 [Mike Packet] Aspirin [Aspirin, Baby] 81 mg PO DAILY@0800 08/04/19 Enoxaparin [Lovenox] 40 mg SUBCUT DAILY@06 syringe 08/13/19 Oxycodone [Oxyir] 10 mg PO Q4H PRN PRN 7 Days #40 tab 08/13/19 proMETHazine tablet [Phenergan 25 mg PO Q4H PRN PRN tab 08/13/19 tablet] Atorvastatin Calcium [Lipitor] 80 mg PO QHS 08/18/19 Diazepam [Valium] 5 mg PO Q6H PRN 08/18/19 Diltiazem [Cardizem] 60 mg PO TID 08/18/19 Eravacycline [Xerava] 125 mg IV BID 08/18/19 Fenofibrate,Micronized 200 mg PO DAILY 08/18/19 [Fenofibrate] Lactobacillus Acidophilus 2 cap PO DAILY 08/18/19 [Acidophilus] Multivitamin 1 tab PO DAILY 08/18/19 Surgical History: Surgical History (Last Updated 12/07/17 @ 08:47 by Shira Conte) History of cataract extraction Z98.49 History of coronary artery bypass graft x 2 Z95.1 Cataract extraction status Z98.49 coronary artery bypass 4 01/2009 stents 2000, 2005 Surgical History: cataract, coronary bypass surgery, pacemaker implantation Lives: Half-Way Smoking Status: Current every day smoker Alcohol: None Drugs: None - *Family History Maternal Family History: Family History (Last Updated 12/07/17 @ 08:47 by Shira Conte) Father Lung cancer Brother Heart disease Myocardial infarction Mother Diabetes Hypertension Review of Systems Constitutional: Denies: Anorexia, Fever Cardiovascular: Denies: Chest Pain Respiratory: Denies: Cough, Shortness of Breath Gastrointestinal: Denies: Abdominal Pain, Nausea, Vomiting Skin: Denies: Jaundice Neurological: Denies: Balance problems Hematologic/ Lymphatic: Denies: Easy Bleeding Patient Problems: Active and Suspected Problems (Last Updated 12/07/17 @ 08:57 by Shira oCnte) Severe sepsis (Acute) Sacral wound (Acute) UTI (urinary tract infection) (Acute) - Physical Exam Vitals/I&O's: Vital Signs Temp Pulse Resp BP Pulse Ox 97.9 F 126 H 18 106/68 94 08/19/19 08:00 08/19/19 08:00 08/19/19 08:00 08/19/19 08:00 08/19/19 09:00 Oxygen Flow Rate (L/min) 2 Oxygen Delivery Method Room Air Weight: 280 lb 6.848 oz Body Mass Index (BMI) 41.7 Finger Stick Blood Glucose 191 Intake and Output for Last 24 Hours 08/17/19 08/18/19 08/19/19 23:59 23:59 23:59 Intake Total 4012.5 / 4012.5 700.0 / 700.0 Output Total 1600 / 1750 750 / 750 Balance 2412.5 / 2262.5 -50.0 / -50.0 General: Alert, Cooperative, Confused Neck: No JVD Lungs: Normal air movement Cardiovascular: Regular Rhythm, Tachycardic Abdomen: Soft, Non Tender, Non-Distended Skin: Ulcer/ Wound Neurological: Cranial nerves II-XII grossly intact Psych/Mental Status: Normal Affect Microbiology Past 72 Hours 08/18/19 11:45 Blood Culture (Wb) - [facility] Blood Culture - 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 difficile DNA Amplification - Final Laboratory Results 08/18/19 11:45: WBC 28.7 H, RBC 4.36 L, Hgb 12.7 L, Hct 41.6, MCV 95.4 H, MCH 29.1, MCHC 30.5 L, RDW Std Deviation 55.9 H, RDW Coeff of Tio 15.9 H, Plt Count 484 H, MPV 9.1, Immature Gran % (Auto) 3.800 H, Neut % (Auto) 77.2 H, Lymph % (Auto) 8.6 L, [place] % (Auto) 10.0, Eos % (Auto) 0.1, Baso % (Auto) 0.3, Absolute Neuts (auto) 22.2 H, Absolute Lymphs (auto) 2.48, Nucleated RBC % 0, Differential Comment , Diff Path Review May foll, Platelet Estimate ADEQUATE, RBC Morphology NORM C+C 08/18/19 11:45: PT 14.6, INR 1.2, APTT 32.6 08/18/19 11:45: Sodium 140, Potassium 4.7, Chloride 107, Carbon Dioxide 28.0, Anion Gap 5, BUN 35 H, Creatinine 1.00, Estim Creat Clear Calc 92.11, Est GFR (MDRD) Af Amer 99, Est GFR (MDRD) Non-Af 82, BUN/Creatinine Ratio 35.1 H, Glucose 141 H, Calcium 9.1, Total Bilirubin 0.50, AST 44 H, ALT 49, Alkaline Phosphatase 125 H, Troponin I < 0.015, Total Protein 8.0, Albumin 2.1 L, Globulin 5.9 H, Albumin/Globulin Ratio 0.4 L 08/18/19 11:45: Lactic Acid 2.3 H* 08/18/19 11:45: COVID-19 (ZHEN) Not Detected 08/18/19 12:05: Urine Color Yellow, Urine Clarity Sl. Cloudy, Urine pH 5.0, Ur Specific [place] 1.020, Urine Protein 30 H, Urine Glucose (UA) Normal, Urine Ketones 5 H, Urine Occult Blood 250 H, Urine Nitrite Negative, Urine Bilirubin Negative, Urine Urobilinogen Normal, Ur Leukocyte Esterase 500 H, Urine RBC 25-50 SEEN, Urine WBC 25-50 SEEN, Ur Squamous Epith Cells 0-5 SEEN, Urine Bacteria 1+, Urine Mucus 0 SEEN, Urine Yeast 2+ 08/18/19 15:43: Lactic Acid 2.3 H* 08/18/19 15:43: Troponin I < 0.015 08/18/19 16:10: S.aureus Protein A PCR NEGATIVE, MRSA (PCR) Negative 08/18/19 17:37: POC Glucose 122 H 08/18/19 18:25: Troponin I < 0.015 08/18/19 22:42: POC Glucose 95 08/19/19 05:00: WBC 23.2 H, RBC 3.64 L, Hgb 10.5 L, Hct 35.1 L, MCV 96.4 H, MCH 28.8, MCHC 29.9 L, RDW Std Deviation 57.4 H, RDW Coeff of Tio 16.2 H, Plt Count 411, MPV 9.3, Immature Gran % (Auto) 1.300 H, Neut % (Auto) 82.6 H, Lymph % (Auto) 7.2 L, [place] % (Auto) 8.5, Eos % (Auto) 0.1, Baso % (Auto) 0.3, Absolute Neuts (auto) 19.1 H, Absolute Lymphs (auto) 1.66, Nucleated RBC % 0, Differential Comment SCANNED, Diff Path Review June08/19/19 05:00: Sodium 142, Potassium 4.1, Chloride 109 H, Carbon Dioxide 26.0, Anion Gap 7, BUN 33 H, Creatinine 0.92, Estim Creat Clear Calc 88.59, Est GFR (MDRD) Af Amer 109, Est GFR (MDRD) Non-Af 90, BUN/Creatinine Ratio 35.9 H, Glucose 125 H, Calcium 8.5 Clinical Impression(s) from Imaging Studies Abdomen/Pelvis CT 08/18/19 11:37 IMPRESSION: Hepatomegaly and fatty infiltration of the liver. Right-sided double-J stent catheter with the proximal tip in the right mid pole calyces of the right kidney and the distal tip within the urinary bladder. Small cyst in the left kidney. Diffuse bladder wall thickening. The balloon of a Chakraborty catheter is seen within the prostatic urethra. Stable large soft tissue defect overlying the sacrum. Electronically Signed: Erwin Lazo, at 13:14 EDT , Service support , Chest X-Ray 08/18/19 12:40 IMPRESSION: Status post CABG. Cardiomegaly. Electronically Signed: Erwin Lazo, at 13:09 EDT , Service support , Current Medications Acetaminophen (Tylenol) 650 mg PO Q6H PRN PRN PRN Reason: Pain 1-10 or Fever Aspirin (Aspirin, Baby) 81 mg PO DAILY@0800 DAVE Atorvastatin Calcium (Lipitor) 80 mg PO QHS DAVE Last Admin: 08/18/19 22:09 Dose: 80 mg Documented by: Dextrose (D50w Syringe) 0 gm IV X1 PRN; Protocol PRN Reason: Hypoglycemia Diazepam (Valium) 5 mg PO Q6H PRN PRN PRN Reason: SPASMS Divalproex Sodium (Depakote) 750 mg PO TID [facility] Last Admin: 08/18/19 22:06 Dose: 750 mg Documented by: Docusate Sodium (Colace) 100 mg PO BID [facility] Last Admin: 08/18/19 22:09 Dose: 100 mg Documented by: Famotidine (Pepcid) 20 mg PO DAILY [facility] Fenofibrate (Tricor) 145 mg PO DAILY [facility] Folic Acid (Folic Acid) 1 mg PO DAILY@0800 [facility] Glucagon () 1 mg IM .X1 PRN PRN Reason: Hypoglycemia Vancomycin IV Pharmacy to Dose (1 ea/ Sodium Chloride) 500 mls @ 250 mls/hr IV X1 PRN; Protocol PRN Reason: Rx to Dose Meropenem 1 gm/ Sodium (Chloride) 120 mls @ 33 mls/hr IV Q8 [facility] Last Admin: 08/19/19 08:03 Dose: 33 mls/hr Documented by: Sodium Chloride () 250 mls @ 15 mls/hr IV .[id number] PRN PRN Reason: Saline Flush Sodium Chloride () 250 mls @ 15 mls/hr IV .[id number] PRN PRN Reason: Additional IVPB Infusion Vancomycin HCl 1,500 mg/ (Sodium Chloride) 530 mls @ 250 mls/hr IV Q8H [facility] Last Admin: 08/19/19 06:37 Dose: 250 mls/hr Documented by: Tobramycin Sulfate 500 mg/ (Dextrose) 62.5 mls @ 100 mls/hr IV X1 ONE Stop: 08/19/19 09:53 Insulin Human Lispro (Humalog Kwikpen (Bkc)) 0 unit SC ACHS [facility]; Protocol Last Admin: 08/19/19 07:18 Dose: Not Given Documented by: Lactobacillus Acidophilus (Acidophilus) 2 tablet PO DAILY [facility] Metronidazole (Flagyl) 1,000 mg PO 1300,1400,2300 [facility] Stop: 08/19/19 23:01 Morphine Sulfate () 2 mg IV Q3H PRN PRN PRN Reason: Pain Score 6-10/10 Last Admin: 08/19/19 08:03 Dose: 2 mg Documented by: Multivitamins (Multivitamin) 1 tablet PO DAILY@0800 [facility] Neomycin Sulfate (Neomycin) 1,000 mg PO 1300,1400,2300 [facility] Stop: 08/19/19 23:01 Nutritional Formula (Mike - Ragland Flavor) 1 packet PO BID [facility] Last Admin: 08/18/19 22:09 Dose: 1 packet Documented by: Deyvl-0-Flui Ethyl Esters (Lovaza) 1 gm PO DAILY [facility] Oxycodone HCl (Oxyir) 5 mg PO Q4H PRN PRN PRN Reason: Pain Score 4-5/10 Pantoprazole Sodium (Protonix) 20 mg PO DAILY [facility] Polyethylene Glycol (Miralax) 17 gm PO DAILY [facility] Promethazine HCl (Phenergan Tablet) 25 mg PO Q4H PRN PRN PRN Reason: NAUSEA/VOMITING Sodium Chloride () 10 - 40 ml IV UD PRN PRN Reason: SALINE FLUSH Last Admin: 08/19/19 08:03 Dose: 10 ml Documented by: Sodium Hypochlorite (Dakins Solution 0.25% (1/2 Strength)) 1 applic TOPICAL BID [facility] Assessment/Plan All Active Problems (Last Updated 12/07/17 @ 08:57 by Shira Conte) Severe sepsis (Acute) Sacral wound (Acute) UTI (urinary tract infection) (Acute) PAD (peripheral artery disease) (Acute) 58-year-old male with sacral ulcer and need for stool diversion 1. Patient has severe sacral ulcer with infection. He is going for debridement today. Patient also has sepsis and he is on abx. The patient was recommended for diverting colostomy during his last admission but he refused at that time. He now realizes that he needs this to divert stool from soiling the wound. 2. I discussed laparoscopic partial sigmoid colectomy with end colostomy with the patient and with his significant other who is his POA. Patient is slightly confused so I obtained consent from the patient's POA but he also consented verbally. I discussed the procedure including the risks of bleeding, infection, injury to surrounding organs, injury to bladder or ureter or small bowel. The patient and his POA have agreed to proceed with surgery tomorrow. Patient is having debridement of his ulcer today. I will plan for partial sigmoid colectomy with colostomy tomorrow. I will give him antibiotic bowel prep today but there is not a large fecal load on CT. I will avoid mechanical bowel prep due to further soiling of the wound. Jared Crystal MD Pager: [facility] [address] [place] [address], [address] [place] [address] Office:
[2019-08-19] MEDS: DAKIN'S SOL HALF STRENGTH (=0.25%) 1 APPLIC TOPICAL (10:32)
--- NOTE | 2019-08-19 10:57 | PCM.HP.ID ---
Problem List (1) Severe sepsis Status: Acute Reason for Consult: bacteremia Consulted by: Dr. Roth History of Present Illness: The patient is a 58 year old M with h/o epilepsy, wheelchair/bed bound. Admitted end of July for sacral osteo, taken to OR 08/[address] Nguyễn, cxs with MDR AcB, MRSA, proteus, corynebacteria, and anaerobes. Discharged on eravacycline. Reported soiling of wound with BM at [facility]. He is unable to provide history. C/o pain in sacrum. Admitted here 08/17, started on vanc/gudelia and given dose of eravacycline last night. Bcx now with GNR. Full ROS limited by mental status. - Medical History Past Medical History (Chronic Problems): Chronic Problems (Last Updated 12/07/17 @ 08:57 by Shira Conte) Epilepsy (Chronic) Diabetes mellitus (Chronic) Smoker (Chronic) Pressure ulcer of sacral region, stage 4 (Chronic) Allergies/Adverse Reactions: Allergies Penicillins Allergy (Mild, Verified 08/18/19 12:09) rash Home Medications: Ambulatory Orders Medication Instructions Recorded RX: Acetaminophen [Tylenol] 650 mg PO Q6H PRN 07/21/19 RX: Cimetidine [Tagamet Hb] 100 mg PO DAILY 07/21/19 RX: Docusate Sodium [Colace] 100 mg PO BID 07/21/19 RX: Duloxetine Hcl [Cymbalta] 60 mg PO DAILY 07/21/19 RX: Folic Acid 1 mg PO DAILY 07/21/19 RX: Metformin HCl 2,000 mg PO DAILY 07/21/19 RX: Metoprolol Tartrate [Lopressor] 100 mg PO BID 07/21/19 RX: [place]-3 Fatty Acids/Fish Oil 1 ea PO DAILY 07/21/19 [Fish Oil 1,000 mg Capsule] RX: Omeprazole 20 mg PO DAILY 07/21/19 RX: Polyethylene Glycol 3350 17 gm PO DAILY 07/21/19 [Miralax] RX: Valproic Acid 750 mg PO TID 07/21/19 RX: [place]/Glut/Cahmb/Collag/Mv-Min 1 ea PO BID 08/01/19 [Mike Packet] RX: Aspirin [Aspirin, Baby] 81 mg PO DAILY@0800 08/04/19 RX: Enoxaparin [Lovenox] 40 mg SUBCUT DAILY@0600 syringe 08/13/19 RX: Oxycodone [Oxyir] 10 mg PO Q4H PRN PRN 7 Days #40 tab 08/13/19 RX: proMETHazine tablet [Phenergan 25 mg PO Q4H PRN PRN tab 08/13/19 tablet] Atorvastatin Calcium [Lipitor] 80 mg PO QHS 08/18/19 Diazepam [Valium] 5 mg PO Q6H PRN 08/18/19 Diltiazem [Cardizem] 60 mg PO TID 08/18/19 Fenofibrate,Micronized 200 mg PO DAILY 08/18/19 [Fenofibrate] Lactobacillus Acidophilus 2 cap PO DAILY 08/18/19 [Acidophilus] RX: Eravacycline [Xerava] 125 mg IV BID 08/18/19 RX: Multivitamin 1 tab PO DAILY 08/18/19 - Social History Tobacco Use: cigarettes Vital Signs Temp Pulse Resp BP Pulse Ox 97.9 F 126 H 23 H 126/70 H 94 08/19/19 08:00 08/19/19 10:00 08/19/19 10:00 08/19/19 10:00 08/19/19 10:00 Oxygen Flow Rate (L/min) 2 Oxygen Delivery Method Room Air Weight: 127.2 kg Body Mass Index (BMI) 41.7 Finger Stick Blood Glucose 191 Microbiology Past 72 Hours 08/18/19 16:10 Wound Culture - Preliminary Wound - Aerobic & Anaerobic Swabs Gram negative vivien Gram positive organism 08/18/19 12:05 Urine Culture - Preliminary Urine, Random Yeast Like Organism 08/18/19 11:45 Blood Culture - Preliminary Blood Culture (Wb) - 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 difficile DNA Amplification - Final Stool Laboratory Tests Past 24 Hrs 08/18/19 08/18/19 08/18/19 11:45 11:45 11:45 WBC 28.7 H RBC 4.36 L Hgb 12.7 L Hct 41.6 MCV 95.4 H MCH 29.1 MCHC 30.5 L RDW Std Deviation 55.9 H RDW Coeff of Tio 15.9 H Plt Count 484 H MPV 9.1 Immature Gran % (Auto) 3.800 H Neut % (Auto) 77.2 H Lymph % (Auto) 8.6 L [place] % (Auto) 10.0 Eos % (Auto) 0.1 Baso % (Auto) 0.3 Absolute Neuts (auto) 22.2 H Absolute Lymphs (auto) 2.48 Nucleated RBC % 0 Differential Comment Diff Path Review May foll Platelet Estimate ADEQUATE RBC Morphology NORM C+C PT 14.6 INR 1.2 APTT 32.6 Sodium 140 Potassium 4.7 Chloride 107 Carbon Dioxide 28.0 Anion Gap 5 BUN 35 H Creatinine 1.00 Estim Creat Clear Calc 92.11 Est GFR (MDRD) Af Amer 99 Est GFR (MDRD) Non-Af 82 BUN/Creatinine Ratio 35.1 H Glucose 141 H Lactic Acid Calcium 9.1 Total Bilirubin 0.50 AST 44 H ALT 49 Alkaline Phosphatase 125 H Troponin I < 0.015 Total Protein 8.0 Albumin 2.1 L Globulin 5.9 H Albumin/Globulin Ratio 0.4 L Urine Color Urine Clarity Urine pH Ur Specific [place] Urine Protein Urine Glucose (UA) Urine Ketones Urine Occult Blood Urine Nitrite Urine Bilirubin Urine Urobilinogen Ur Leukocyte Esterase Urine RBC Urine WBC Ur Squamous Epith Cells Urine Bacteria Urine Mucus Urine Yeast COVID-19 (ZHEN) S.aureus Protein A PCR MRSA (PCR) 08/18/19 08/18/19 08/18/19 11:45 11:45 12:05 WBC RBC Hgb Hct MCV MCH MCHC RDW Std Deviation RDW Coeff of Tio Plt Count MPV Immature Gran % (Auto) Neut % (Auto) Lymph % (Auto) [place] % (Auto) Eos % (Auto) Baso % (Auto) Absolute Neuts (auto) Absolute Lymphs (auto) Nucleated RBC % Differential Comment Diff Path Review Platelet Estimate RBC Morphology PT INR APTT Sodium Potassium Chloride Carbon Dioxide Anion Gap BUN Creatinine Estim Creat Clear Calc Est GFR (MDRD) Af Amer Est GFR (MDRD) Non-Af BUN/Creatinine Ratio Glucose Lactic Acid 2.3 H* Calcium Total Bilirubin AST ALT Alkaline Phosphatase Troponin I Total Protein Albumin Globulin Albumin/Globulin Ratio Urine Color Yellow Urine Clarity Sl. Cloudy Urine pH 5.0 Ur Specific [place] 1.020 Urine Protein 30 H Urine Glucose (UA) Normal Urine Ketones 5 H Urine Occult Blood 250 H Urine Nitrite Negative Urine Bilirubin Negative Urine Urobilinogen Normal Ur Leukocyte Esterase 500 H Urine RBC 25-50 SEEN Urine WBC 25-50 SEEN Ur Squamous Epith Cells 0-5 SEEN Urine Bacteria 1+ Urine Mucus 0 SEEN Urine Yeast 2+ COVID-19 (ZHEN) Not Detected S.aureus Protein A PCR MRSA (PCR) 08/18/19 08/18/19 08/18/19 15:43 15:43 16:10 WBC RBC Hgb Hct MCV MCH MCHC RDW Std Deviation RDW Coeff of Tio Plt Count MPV Immature Gran % (Auto) Neut % (Auto) Lymph % (Auto) [place] % (Auto) Eos % (Auto) Baso % (Auto) Absolute Neuts (auto) Absolute Lymphs (auto) Nucleated RBC % Differential Comment Diff Path Review Platelet Estimate RBC Morphology PT INR APTT Sodium Potassium Chloride Carbon Dioxide Anion Gap BUN Creatinine Estim Creat Clear Calc Est GFR (MDRD) Af Amer Est GFR (MDRD) Non-Af BUN/Creatinine Ratio Glucose Lactic Acid 2.3 H* Calcium Total Bilirubin AST ALT Alkaline Phosphatase Troponin I < 0.015 Total Protein Albumin Globulin Albumin/Globulin Ratio Urine Color Urine Clarity Urine pH Ur Specific [place] Urine Protein Urine Glucose (UA) Urine Ketones Urine Occult Blood Urine Nitrite Urine Bilirubin Urine Urobilinogen Ur Leukocyte Esterase Urine RBC Urine WBC Ur Squamous Epith Cells Urine Bacteria Urine Mucus Urine Yeast COVID-19 (ZHEN) S.aureus Protein A PCR NEGATIVE MRSA (PCR) Negative 08/18/19 08/19/19 08/19/19 18:25 05:00 05:00 WBC 23.2 H RBC 3.64 L Hgb 10.5 L Hct 35.1 L MCV 96.4 H MCH 28.8 MCHC 29.9 L RDW Std Deviation 57.4 H RDW Coeff of Tio 16.2 H Plt Count 411 MPV 9.3 Immature Gran % (Auto) 1.300 H Neut % (Auto) 82.6 H Lymph % (Auto) 7.2 L [place] % (Auto) 8.5 Eos % (Auto) 0.1 Baso % (Auto) 0.3 Absolute Neuts (auto) 19.1 H Absolute Lymphs (auto) 1.66 Nucleated RBC % 0 Differential Comment SCANNED Diff Path Review May foll Platelet Estimate RBC Morphology PT INR APTT Sodium 142 Potassium 4.1 Chloride 109 H Carbon Dioxide 26.0 Anion Gap 7 BUN 33 H Creatinine 0.92 Estim Creat Clear Calc 88.59 Est GFR (MDRD) Af Amer 109 Est GFR (MDRD) Non-Af 90 BUN/Creatinine Ratio 35.9 H Glucose 125 H Lactic Acid Calcium 8.5 Total Bilirubin AST ALT Alkaline Phosphatase Troponin I < 0.015 Total Protein Albumin Globulin Albumin/Globulin Ratio Urine Color Urine Clarity Urine pH Ur Specific [place] Urine Protein Urine Glucose (UA) Urine Ketones Urine Occult Blood Urine Nitrite Urine Bilirubin Urine Urobilinogen Ur Leukocyte Esterase Urine RBC Urine WBC Ur Squamous Epith Cells Urine Bacteria Urine Mucus Urine Yeast COVID-19 (ZHEN) S.aureus Protein A PCR MRSA (PCR) - Other Studies Radiology: [] reviewed Other Studies: [] Route of nutrition/ use of supplements: [] Nutritional Intake: [] IV Site: [] Chakraborty Catheter: [] - Physical Exam General: - - oriented x1, lethargic HEENT: Atraumatic, PERRLA, EOMI Neck: Supple, No Nodes Lungs: Clear to auscultation, Normal air movement Cardiovascular: No murmurs, Tachycardic Abdomen: Soft, Non Tender, Non-Distended Extremities: Edema Skin: Ulcer/ Wound - reviewed photo IV Site: PICC, without redness Musculoskeletal: No Tenderness to Palpation of Joints or Extremities Neurological: Cranial nerves II-XII grossly intact - Assessment/Plan Antibiotics: [] Assessment/Plan: [] Active and Suspected Problems (Last Updated 12/07/17 @ 08:57 by Shira Conte) Severe sepsis (Acute) Sacral wound (Acute) UTI (urinary tract infection) (Acute) severe sepsis with GNR bacteremia, suspected source sacral osteo - Ucx pending. Recent surg cx with MDR AcB, MRSA, coryne, proteus, and anaerobes. OR today with Dr. Nguyễn for I&D. OR tomorrow with Dr. Crystal for diverting ostomy. Had been on eravacycline. Agree with vanc/gudelia, will give dose of tobra today while eravacycline is being ordered. Will follow, thank you, d/w nursing and pharmacy
[2019-08-19 11:20] LABS: Bedside Glucose 117 mg/dL (70-110)
--- NOTE | 2019-08-19 11:41 | CASEMGMT ---
Patient is from [place]. SW faxed updates to [place]. 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 Amna ZARATE RN DERMATOLOGY
[2019-08-19 12:48] LABS: Pathologist Review Reviewed
[2019-08-19 12:50] LABS: Pathologist Review Reviewed
[2019-08-19 13:39] LABS: Vancomycin, Trough Level 24.2 ug/mL (5.0-15.0)
[2019-08-19] MEDS: Menthol/Lanolin/Calamine/Znox 113 GM Tube 1 APPLIC TOPICAL ×2 (14:15→21:43)
--- NOTE | 2019-08-19 14:22 | NURSING ---
Pt to OR via OR nurse and anesthesiologist
--- NOTE | 2019-08-19 15:04 | PHA.PHARE_ITS ---
Consult Pharmacy has been consulted to manage selected antiobiotic: Vancomycin Type of Consult: Follow-up Suspected Infection: Sepsis Labs: Sodium 142 mmol/L (136-145) 08/19/19 05:00 Potassium 4.1 mmol/L (3.5-5.1) 08/19/19 05:00 Chloride 109 mmol/L (98-107) H 08/19/19 05:00 Carbon Dioxide 26.0 mmol/L (21.0-32.0) 08/19/19 05:00 Anion Gap 7 (5-15) 08/19/19 05:00 BUN 33 mg/dL (7-18) H 08/19/19 05:00 Creatinine 0.92 mg/dL (0.70-1.30) 08/19/19 05:00 Est GFR (MDRD) Af Amer 109 mL/min (>60) 08/19/19 05:00 Est GFR (MDRD) Non-Af 90 mL/min (>60) 08/19/19 05:00 BUN/Creatinine Ratio 35.9 RATIO (10-20) H 08/19/19 05:00 Glucose 125 mg/dL (74-106) H 08/19/19 05:00 Vancomycin Trough 24.2 ug/mL (5.0-15.0) H 08/19/19 12:50 Microbiology: Microbiology 08/18/19 16:10 Wound - Aerobic & Anaerobic Swabs Gram Stain - Final 08/18/19 16:10 Wound - Aerobic & Anaerobic Swabs Wound Culture - Preliminary Gram negative vivien Gram positive organism 08/18/19 12:05 Urine, Random Urine Culture - Preliminary Yeast Like Organism 08/18/19 11:45 Blood Culture (Wb) - Pic Blood Culture - 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 difficile DNA Amplification - Final Estimated Creatinine Clearance: 117.2 Goal Trough: 15-20 mcg/mL Pharmacy Plan for Drug Dosing: VANCOMYCIN LEVEL RECEIVED Current Vancomycin Dose: 1500MG Q8H Number of Doses Received: 3 Vancomycin Level: 24.2 MG/DL Hours Since Last Dose: 6 HOURS AND 15 MINUTES Renal Function: 0.92 (CRCL 117.2 USING ADJ BW) Renal Function Trend: STABLE Lab/Micro: WOUND CX WITH PREMILINARY GRAM (+) ORGANISM AND GNR, BLOOD CX WITH GNR Vancomycin Plan/Comments: WAS ONLY A 6 HR TROUGH BUT AN 8 TROUGH PROBABLY WOULD'VE BEEN ON HIGHER END OF GOAL RANGE. DID HAVE NURSE STOP INFUSION AFTER MORE THAN HALF THE BAG INFUSED (ABOUT 300ML). WILL GET ANOTHER TROUGH WITH AM LABS AND HOLD VANCOMYCIN FOR NOW. Pharmacy Service will continue to monitor and adjust dosing as required. Labs to be done on [date and time ordered]: 08/20/19 @ 0600
--- NOTE | 2019-08-19 15:42 | PCM.OPRPT ---
Report of Operation Date of Procedure: 08/19/19 Pre-Operative Diagnosis: 1. 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 2. Diabetes mellitus. 3. Sepsis. 4. Epilepsy. 5. Smoker. 6. s/p excision sacral pressure sore, Stage IV, with partial ostectomy for osteomyelitis. 7. MRSA. 8. MDR Acinetobacter baumannii. 9. Chronic MRSA osteomyelitis. Post-Operative Diagnosis: Same. Surgery/Procedure Performed:: Excision worsening infected sacral pressure sore from stool contamination, Stage IV, with partial ostectomy for osteomyelitis. Description of Surgical Findings:: Patient was taken to surgery on 08/04/19 where he underwent excision sacral pressure sore, Stage IV, with partial ostectomy for osteomyelitis. Wound care was started with Dakin's dressing changes as it was difficult to place a VAC because of close proximity to the anal opening. It was discussed with the patient to proceed with a diverting colostomy. Initially he was hesitant. His wound cultures showed Proteus mirabilis, MDR Acinetobacter baumannii, Corynebacterium striatum, and Anaerobic cocci in the soft tissue and MRSA in the bone. He was initially treated with Tobramycin, Levaquin, Flagyl, and Vancomycin. Infectious Diseases was consulted and he was changed to Eravacycline for the F. He was discharged to the F on 08/13/19. Today he retuned to the ED because of mental status changes and a septic picture. His WBC was 28.7. Lactate was 2.3. Urine shows an infection. He was started on Meropenem and Vancomycin. On exam, the sacral pressure sore shows some granulation and a lot of fibrous tissue. No evidence of purulent drainage. Wound measures 10 x 17 x 5 cm. However during the dressing change today, there was evidence of stool contamination in the inferior aspect of the pressure sore. Will continue Dakin's dressing changes twice a day. The patient would benefit from operative debridement for deeper cultures including bone to help with antibiotic management. Will proceed with surgery tomorrow. Discussed with the patient that he needs a diverting colostomy. Otherwise he will continue getting septic episodes from stool contamination. Will consult General Surgery. Will also consult Infectious Diseases to help with antibiotic management. Patient was informed of the risks and complications of the procedure including alternatives to surgery. These were discussed with the patient personally. Patient voices understanding and wishes to proceed. Size of defect sacral area - 22 x 13 x 5 cm. recruitment manager: Jasbir Loyd. Type of Anesthesia:: General Specimen's removed: 1. Infected sacral pressure sore from stool contamination soft tissue to Pathology and Microbiology. 2. Infected sacral pressure sore from stool contamination bone to Pathology and Microbiology. Drains: None. Estimated Blood Loss (mL): 150 ml. Description of Procedure: Patient was taken to OR in supine position and was placed under general anesthesia. He was placed in the prone position. SCD's were placed for DVT prophylaxis. Perioperative antibiotics were given intravenously. For the surgery I wore an N95 mask and wore proper eye protection. The sacral area was prepped and draped in the usual fashion. I excised the sacral pressure sore in an oval fashion through dense subcutaneous tissue and muscle which extended down to the bone. A lot of fat necrosis was present as well. No pus was seen. A partial ostectomy was then performed using rongeurs. The bone looked grayish and was not very hard. Clinically the bone looked suspicious for osteomyelitis. Specimens from several areas of bone were taken. A rasp was used to smooth out the bony edges. After excising the extensive fat necrosis and dense abnormal bursal scar tissue, the remaining soft tissue showed good bleeding. I also used a curette for excisional debridement as well. The underlying muscle appeared soft and viable. Hemostasis was obtained with electrocautery. The size of the sacral pressure sore after excision was 22 x 13 x 5 cm. The wound was irrigated with saline. I placed bone wax on the sacral bone to help minimize bone bleeding. I then dressed the wound by placing Mepitel nonadherent dressing in the base of the wound followed by Kerlix gauze and Betadine and dry Kerlix gauze followed by ABD pads compression dressing. Half the soft tissue and half the bone was sent to Pathology for analysis to rule out carcinoma and to evaluate for osteomyelitis. Half the soft tissue and half the bone was sent to Microbiology for culture. A positive culture will necessitate antibiotic therapy. He is currently on Vancomycin and Meropenem through a PICC line. At the [facility], he was on Eravacycline. Patient tolerated the procedure well and was sent back to ICU in serious condition. Patient will be sent upstairs for continued postop care with Dakin's dressing changes. Anticipate increased metabolic demands. Prealbumin was 16.2. Encourage nutritional supplementation with protein to help the healing process. The pressure sore is very close to the anal opening, and he has been having persistent stool contamination. He needs a diverting colostomy to minimize stool contamination and maximize the healing process. That surgery is scheduled for the morning. Grafts/Implants Used: None. - Complications None. - Admit VTE Documentation VTE Present on Admission: No VTE Mechan Device Prophylaxis: SCD's VTE Pharm Prophylaxis ordered?: Yes Surgery Charges CPT - 83802-77 ICD-10 - L89.154, E11.9, A41.9, G40.909, A49.02, A49.9, M86.9, R15.9, F17.200
[2019-08-19 17:00] LABS: Bedside Glucose 113 mg/dL (70-110)
[2019-08-19 21:55] LABS: Bedside Glucose 110 mg/dL (70-110)
[2019-08-20] VITALS (31 sets, daily range): BP systolic 74–129; BP diastolic 48–77; PULSE 75–136; RESP 16–36; TEMP 36.1–36.9; O2SAT 90–98; BMI 41.9; BMI 41.8
[2019-08-20] MEDS: Morphine 2 MG/ML Syringe IV ×3 (00:24→09:40)
[2019-08-20] MEDS: dilTIAZem 25 MG/5 ML Vial 20 MG IV BOLUS (01:55)
[2019-08-20 04:09] LABS: Absolute Lymphocyte Count 0.99 X10^3/uL (0.83-4.51); Absolute Neutrophil Count 12.3 X10^3/uL (2.0-7.7); Basophil# 0.05 X10^3/uL; Basophil% 0.3 % (0-1); Eosinophils% 0.7 % (0-5); Hematocrit 31.9 % (40-54); Hemoglobin 9.4 g/dL (13.0-16.5); Lymphocyte # 0.99 X10^3/ul (4.0); Lymphocyte % 6.6 % (19-41); Mean Corp Hgb Conc 29.5 g/dL (32-36); Mean Corpuscular Hgb 29.2 pg (27.0-32.0); Mean Corpuscular Volume 99.1 fL (80-94); Mean Platelet Vol. 9.2 fl (6.2-12.0); Monocyte# 1.44 X10^3/uL; Monocyte% 9.5 % (0-10); NRBC Flagged by Analyzer 0 % (0-5); Neutrophil # 12.33 X10^3/uL (2.7-7.7); Neutrophil % 81.6 % (47-70); Platelet Count 342 K/mm3 (150-450); RBC Distribution Width CV 16.5 % (11.6-14.6); RBC Distribution Width SD 59.7 fl (35.1-43.9); Red Blood Count 3.22 M/mm3 (4.6-6.2); White Blood Count 15.1 K/mm3 (4.4-11.0)
[2019-08-20 04:39] LABS: Vancomycin, Random Level 13.9 ug/mL (0.0-15.0)
[2019-08-20 04:43] LABS: Anion Gap 4 (5-15); BUN 24 mg/dL (7-18); BUN/Creat Ratio 27.4 RATIO (10-20); Calcium,Total 8.3 mg/dL (8.5-10.1); Chloride 112 mmol/L (98-107); Creatinine, Serum 0.88 mg/dL (0.70-1.30); EST Glomerular Filtration Rate 95 mL/min (>60); Est Glom Filt Rate - Afr Amer 115 mL/min (>60); Estimated Creatinine Clearance 92.62 ml/min; Glucose 115 mg/dL (74-106); Potassium 4.1 mmol/L (3.5-5.1); Prealbumin 5.1 mg/dL (20.0-40.0); Sodium Level 143 mmol/L (136-145)
[2019-08-20] MEDS: 0.9% Saline Lock 10 ML Syringe IV (05:02)
[2019-08-20] MEDS: 0.9% Normal Saline 1,000 ML 999 ML IV (05:03)
[2019-08-20] MEDS: Menthol/Lanolin/Calamine/Znox 113 GM Tube 1 APPLIC TOPICAL ×3 (05:04→20:52)
--- NOTE | 2019-08-20 06:31 | PCM.PN.INT ---
Subjective: The patient was seen and examined at the bedside this morning. Events from the last 24 hours have been reviewed. Per nursing report, issues were encountered overnight with the patient's elevated heart rate. The patient is on both Lopressor and Cardizem as an outpatient, both of which were initially on hold given his n.p.o. status. Early this morning he was given a one-time IV bolus of Cardizem, which subsequently led to the development of tenuous hemodynamics. The patient was then given a fluid bolus. He is currently documented to be overall net +3.4 L for the hospital admission. The patient did undergo successful excision of his infected sacral pressure wound with partial ostectomy for osteomyelitis yesterday. Estimated blood loss was approximately 150 mL's. Objective: The patient's most recent lab work, culture data and imaging studies have all been personally reviewed. 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 Preliminary wound culture from August 17 was positive for gram-negative vivien. C. difficile was negative. Urine culture is pending. General: No apparent distress, Disoriented, Lethargic HEENT: Atraumatic, Normocephalic Oral: Dry Mucosa Neck: Supple, No Nodes, Trachea Midline Lungs: Diminished, - - Poor inspiratory effort Cardiovascular: Normal S1, Normal S2, Tachycardic Abdomen: Bowel Sounds Present, Soft, Non Tender Extremities: No clubbing, No cyanosis Skin: - - No significant change from previous Musculoskeletal: No Muscle Wasting Lymphatic: No Cervical, Supraclavicular, or Inguinal Adenopathy Neurological: Neuro grossly intact Psych/Mental Status: Flat Affect Vital Signs Temp Pulse Resp BP Pulse Ox 98.5 F 129 H 30 H 94/51 L 95 08/20/19 04:00 08/20/19 06:00 08/20/19 06:00 08/20/19 06:00 08/20/19 06:00 Oxygen Flow Rate (L/min) 2 Oxygen Delivery Method Nasal Cannula Weight: 283 lb 1.176 oz Body Mass Index (BMI) 41.7 Finger Stick Blood Glucose 191 Intake and Output for Last 24 Hours 08/18/19 08/19/19 08/20/19 23:59 23:59 23:59 Intake Total 4012.5 / 4012.5 1901.25 / 1901.25 1184.25 / 1184.25 Output Total 1600 / 1750 1475 / 1875 575 / 575 Balance 2412.5 / 2262.5 426.25 / 26.25 609.25 / 609.25 Labs (Last 48 Hours) 08/18/19 08/18/19 08/18/19 11:45 11:45 11:45 WBC 28.7 H RBC 4.36 L Hgb 12.7 L Hct 41.6 MCV 95.4 H MCH 29.1 MCHC 30.5 L RDW Std Deviation 55.9 H RDW Coeff of Tio 15.9 H Plt Count 484 H MPV 9.1 Immature Gran % (Auto) 3.800 H Neut % (Auto) 77.2 H Lymph % (Auto) 8.6 L [place] % (Auto) 10.0 Eos % (Auto) 0.1 Baso % (Auto) 0.3 Absolute Neuts (auto) 22.2 H Absolute Lymphs (auto) 2.48 Nucleated RBC % 0 Differential Comment Diff Path Review Reviewed Platelet Estimate ADEQUATE RBC Morphology NORM C+C PT 14.6 INR 1.2 APTT 32.6 Sodium 140 Potassium 4.7 Chloride 107 Carbon Dioxide 28.0 Anion Gap 5 BUN 35 H Creatinine 1.00 Estim Creat Clear Calc 92.11 Est GFR (MDRD) Af Amer 99 Est GFR (MDRD) Non-Af 82 BUN/Creatinine Ratio 35.1 H Glucose 141 H Lactic Acid Calcium 9.1 Total Bilirubin 0.50 AST 44 H ALT 49 Alkaline Phosphatase 125 H Troponin I < 0.015 Total Protein 8.0 Albumin 2.1 L Globulin 5.9 H Albumin/Globulin Ratio 0.4 L Prealbumin Urine Color Urine Clarity Urine pH Ur Specific [place] Urine Protein Urine Glucose (UA) Urine Ketones Urine Occult Blood Urine Nitrite Urine Bilirubin Urine Urobilinogen Ur Leukocyte Esterase Urine RBC Urine WBC Ur Squamous Epith Cells Urine Bacteria Urine Mucus Urine Yeast Vancomycin Trough Random Vancomycin COVID-19 (ZHEN) S.aureus Protein A PCR MRSA (PCR) POC Glucose 08/18/19 08/18/19 08/18/19 11:45 11:45 12:05 WBC RBC Hgb Hct MCV MCH MCHC RDW Std Deviation RDW Coeff of Tio Plt Count MPV Immature Gran % (Auto) Neut % (Auto) Lymph % (Auto) [place] % (Auto) Eos % (Auto) Baso % (Auto) Absolute Neuts (auto) Absolute Lymphs (auto) Nucleated RBC % Differential Comment Diff Path Review Platelet Estimate RBC Morphology PT INR APTT Sodium Potassium Chloride Carbon Dioxide Anion Gap BUN Creatinine Estim Creat Clear Calc Est GFR (MDRD) Af Amer Est GFR (MDRD) Non-Af BUN/Creatinine Ratio Glucose Lactic Acid 2.3 H* Calcium Total Bilirubin AST ALT Alkaline Phosphatase Troponin I Total Protein Albumin Globulin Albumin/Globulin Ratio Prealbumin Urine Color Yellow Urine Clarity Sl. Cloudy Urine pH 5.0 Ur Specific [place] 1.020 Urine Protein 30 H Urine Glucose (UA) Normal Urine Ketones 5 H Urine Occult Blood 250 H Urine Nitrite Negative Urine Bilirubin Negative Urine Urobilinogen Normal Ur Leukocyte Esterase 500 H Urine RBC 25-50 SEEN Urine WBC 25-50 SEEN Ur Squamous Epith Cells 0-5 SEEN Urine Bacteria 1+ Urine Mucus 0 SEEN Urine Yeast 2+ Vancomycin Trough Random Vancomycin COVID-19 (ZHEN) Not Detected S.aureus Protein A PCR MRSA (PCR) POC Glucose 08/18/19 08/18/19 08/18/19 15:43 15:43 16:10 WBC RBC Hgb Hct MCV MCH MCHC RDW Std Deviation RDW Coeff of Tio Plt Count MPV Immature Gran % (Auto) Neut % (Auto) Lymph % (Auto) [place] % (Auto) Eos % (Auto) Baso % (Auto) Absolute Neuts (auto) Absolute Lymphs (auto) Nucleated RBC % Differential Comment Diff Path Review Platelet Estimate RBC Morphology PT INR APTT Sodium Potassium Chloride Carbon Dioxide Anion Gap BUN Creatinine Estim Creat Clear Calc Est GFR (MDRD) Af Amer Est GFR (MDRD) Non-Af BUN/Creatinine Ratio Glucose Lactic Acid 2.3 H* Calcium Total Bilirubin AST ALT Alkaline Phosphatase Troponin I < 0.015 Total Protein Albumin Globulin Albumin/Globulin Ratio Prealbumin Urine Color Urine Clarity Urine pH Ur Specific [place] Urine Protein Urine Glucose (UA) Urine Ketones Urine Occult Blood Urine Nitrite Urine Bilirubin Urine Urobilinogen Ur Leukocyte Esterase Urine RBC Urine WBC Ur Squamous Epith Cells Urine Bacteria Urine Mucus Urine Yeast Vancomycin Trough Random Vancomycin COVID-19 (ZHEN) S.aureus Protein A PCR NEGATIVE MRSA (PCR) Negative POC Glucose 08/18/19 08/18/19 08/18/19 17:37 18:25 22:42 WBC RBC Hgb Hct MCV MCH MCHC RDW Std Deviation RDW Coeff of Tio Plt Count MPV Immature Gran % (Auto) Neut % (Auto) Lymph % (Auto) [place] % (Auto) Eos % (Auto) Baso % (Auto) Absolute Neuts (auto) Absolute Lymphs (auto) Nucleated RBC % Differential Comment Diff Path Review Platelet Estimate RBC Morphology PT INR APTT Sodium Potassium Chloride Carbon Dioxide Anion Gap BUN Creatinine Estim Creat Clear Calc Est GFR (MDRD) Af Amer Est GFR (MDRD) Non-Af BUN/Creatinine Ratio Glucose Lactic Acid Calcium Total Bilirubin AST ALT Alkaline Phosphatase Troponin I < 0.015 Total Protein Albumin Globulin Albumin/Globulin Ratio Prealbumin Urine Color Urine Clarity Urine pH Ur Specific [place] Urine Protein Urine Glucose (UA) Urine Ketones Urine Occult Blood Urine Nitrite Urine Bilirubin Urine Urobilinogen Ur Leukocyte Esterase Urine RBC Urine WBC Ur Squamous Epith Cells Urine Bacteria Urine Mucus Urine Yeast Vancomycin Trough Random Vancomycin COVID-19 (ZHEN) S.aureus Protein A PCR MRSA (PCR) POC Glucose 122 H 95 08/19/19 08/19/19 08/19/19 05:00 05:00 11:07 WBC 23.2 H RBC 3.64 L Hgb 10.5 L Hct 35.1 L MCV 96.4 H MCH 28.8 MCHC 29.9 L RDW Std Deviation 57.4 H RDW Coeff of Tio 16.2 H Plt Count 411 MPV 9.3 Immature Gran % (Auto) 1.300 H Neut % (Auto) 82.6 H Lymph % (Auto) 7.2 L [place] % (Auto) 8.5 Eos % (Auto) 0.1 Baso % (Auto) 0.3 Absolute Neuts (auto) 19.1 H Absolute Lymphs (auto) 1.66 Nucleated RBC % 0 Differential Comment SCANNED Diff Path Review Reviewed Platelet Estimate RBC Morphology PT INR APTT Sodium 142 Potassium 4.1 Chloride 109 H Carbon Dioxide 26.0 Anion Gap 7 BUN 33 H Creatinine 0.92 Estim Creat Clear Calc 88.59 Est GFR (MDRD) Af Amer 109 Est GFR (MDRD) Non-Af 90 BUN/Creatinine Ratio 35.9 H Glucose 125 H Lactic Acid Calcium 8.5 Total Bilirubin AST ALT Alkaline Phosphatase Troponin I Total Protein Albumin Globulin Albumin/Globulin Ratio Prealbumin Urine Color Urine Clarity Urine pH Ur Specific [place] Urine Protein Urine Glucose (UA) Urine Ketones Urine Occult Blood Urine Nitrite Urine Bilirubin Urine Urobilinogen Ur Leukocyte Esterase Urine RBC Urine WBC Ur Squamous Epith Cells Urine Bacteria Urine Mucus Urine Yeast Vancomycin Trough Random Vancomycin COVID-19 (ZHEN) S.aureus Protein A PCR MRSA (PCR) POC Glucose 117 H 08/19/19 08/19/19 08/19/19 12:50 16:41 21:51 WBC RBC Hgb Hct MCV MCH MCHC RDW Std Deviation RDW Coeff of Tio Plt Count MPV Immature Gran % (Auto) Neut % (Auto) Lymph % (Auto) [place] % (Auto) Eos % (Auto) Baso % (Auto) Absolute Neuts (auto) Absolute Lymphs (auto) Nucleated RBC % Differential Comment Diff Path Review Platelet Estimate RBC Morphology PT INR APTT Sodium Potassium Chloride Carbon Dioxide Anion Gap BUN Creatinine Estim Creat Clear Calc Est GFR (MDRD) Af Amer Est GFR (MDRD) Non-Af BUN/Creatinine Ratio Glucose Lactic Acid Calcium Total Bilirubin AST ALT Alkaline Phosphatase Troponin I Total Protein Albumin Globulin Albumin/Globulin Ratio Prealbumin Urine Color Urine Clarity Urine pH Ur Specific [place] Urine Protein Urine Glucose (UA) Urine Ketones Urine Occult Blood Urine Nitrite Urine Bilirubin Urine Urobilinogen Ur Leukocyte Esterase Urine RBC Urine WBC Ur Squamous Epith Cells Urine Bacteria Urine Mucus Urine Yeast Vancomycin Trough 24.2 H Random Vancomycin COVID-19 (ZHEN) S.aureus Protein A PCR MRSA (PCR) POC Glucose 113 H 110 08/20/19 08/20/19 08/20/19 04:00 04:00 04:00 WBC 15.1 H RBC 3.22 L Hgb 9.4 L Hct 31.9 L MCV 99.1 H MCH 29.2 MCHC 29.5 L RDW Std Deviation 59.7 H RDW Coeff of Tio 16.5 H Plt Count 342 MPV 9.2 Immature Gran % (Auto) 1.300 H Neut % (Auto) 81.6 H Lymph % (Auto) 6.6 L [place] % (Auto) 9.5 Eos % (Auto) 0.7 Baso % (Auto) 0.3 Absolute Neuts (auto) 12.3 H Absolute Lymphs (auto) 0.99 Nucleated RBC % 0 Differential Comment Diff Path Review Platelet Estimate RBC Morphology PT INR APTT Sodium 143 Potassium 4.1 Chloride 112 H Carbon Dioxide 27.0 Anion Gap 4 L BUN 24 H Creatinine 0.88 Estim Creat Clear Calc 92.62 Est GFR (MDRD) Af Amer 115 Est GFR (MDRD) Non-Af 95 BUN/Creatinine Ratio 27.4 H Glucose 115 H Lactic Acid Calcium 8.3 L Total Bilirubin AST ALT Alkaline Phosphatase Troponin I Total Protein Albumin Globulin Albumin/Globulin Ratio Prealbumin 5.1 L Urine Color Urine Clarity Urine pH Ur Specific [place] Urine Protein Urine Glucose (UA) Urine Ketones Urine Occult Blood Urine Nitrite Urine Bilirubin Urine Urobilinogen Ur Leukocyte Esterase Urine RBC Urine WBC Ur Squamous Epith Cells Urine Bacteria Urine Mucus Urine Yeast Vancomycin Trough Random Vancomycin 13.9 COVID-19 (ZHEN) S.aureus Protein A PCR MRSA (PCR) POC Glucose Microbiology 08/18/19 16:10 Wound - Aerobic & Anaerobic Swabs Gram Stain - Final 08/18/19 16:10 Wound - Aerobic & Anaerobic Swabs Wound Culture - Preliminary Gram negative vivien Gram positive organism 08/18/19 12:05 Urine, Random Urine Culture - Preliminary Yeast Like Organism 08/18/19 11:45 Blood Culture (Wb) - Pic Blood Culture - Preliminary GNR lactose lab support service tech 08/19/19 00:45 Stool C. difficile DNA Amplification - Final Clinical Impression(s) from Imaging Studies Abdomen/Pelvis CT 08/18/19 11:37 IMPRESSION: Hepatomegaly and fatty infiltration of the liver. Right-sided double-J stent catheter with the proximal tip in the right mid pole calyces of the right kidney and the distal tip within the urinary bladder. Small cyst in the left kidney. Diffuse bladder wall thickening. The balloon of a Chakraborty catheter is seen within the prostatic urethra. Stable large soft tissue defect overlying the sacrum. Electronically Signed: Erwin Lazo, at 13:14 EDT , Service support , Chest X-Ray 08/18/19 12:40 IMPRESSION: Status post CABG. Cardiomegaly. Electronically Signed: Erwin Lazo at 13:09 EDT , Service support , Medical Necessity - Tobacco Use Smoking Status: Current every day smoker Assessment/Plan All Active Problems (Last Updated 12/07/17 @ 08:57 by Shira Conte) Cecum perforation (Acute) Multiple drug resistant Acinetobacter infection (Acute) Methicillin resistant Staphylococcus aureus infection (Acute) Severe sepsis (Acute) Sacral wound (Acute) UTI (urinary tract infection) (Acute) PAD (peripheral artery disease) (Acute) RECOMMENDATIONS: 1. Continue empiric antimicrobials per infectious diseases recommendations. 2. Plans for diverting ostomy today. 3. Minimize pain medications, as the patient appears oversedated. 4. Continue IV Depakote and seizure precautions. IMPRESSIONS: 1. Severe sepsis The patient has evidence of gram-negative bacteremia, most likely secondary to hematogenous spread from his sacral wound. The patient will be continued on broad-spectrum antimicrobials per ID recommendations. He is currently hemodynamically stable without need for vasopressor support. There are plans for diverting ostomy today. 2. Metabolic encephalopathy Continue current supportive measures as noted above. The patient has not demonstrated any active seizure activity. I do suspect that his residual lethargy is likely secondary to opiate pain medication utilization. 3. Coronary artery disease status post CABG/atrial fibrillation/unspecified seizure disorder/diabetes mellitus/GERD Complicates care, management, recovery and prognosis. Continue home medications as indicated. Physical therapy to hold on evaluation until surgical intervention has been performed. This note was generated with [employer] dictation software. It may contain incorrect words, spelling, and punctuation that were not noted in checking the note before signing. Inpatient E&M: 268[address] [facility] L3
--- NOTE | 2019-08-20 07:09 | PN_ITS ---
Patient Problems: Active and Suspected Problems (Last Updated 12/07/17 @ 08:57 by Shira Conte) Severe sepsis (Acute) Sacral wound (Acute) UTI (urinary tract infection) (Acute) Reason for Visit: sepsis Subjective: patient underwent excision worsening infected sacral pressure sore from stool contamination, Stage IV, with partial ostectomy for osteomyelitis on 08/19/[address] Nguyễn Objective: GENERAL: Patient still remains lethargic. HEENT: Atraumatic; EYES; Anicteric, Normal Conjunctiva NECK; supple, normal thyroid, RESPIRATORY: Diminished to auscultation CARDIOVASCULAR: Regular S1 S2, GI: soft, normoactive bowel sounds, : No Renal angle tenderness; EXTREMITIES: No edema, no clubbing, MUSCULOSKELETAL: no muscle waisting NEURO: Awake; no lateralizing signs. SKIN: Stage IV sacral decubitus PSYCH; Flat affect Vitals/I&O's: Vital Signs Temp Pulse Resp BP Pulse Ox 98.5 F 129 H 30 H 94/51 L 95 08/20/19 04:00 08/20/19 06:00 08/20/19 06:00 08/20/19 06:00 08/20/19 06:00 Oxygen Flow Rate (L/min) 2 Oxygen Delivery Method Nasal Cannula Weight: 128.4 kg Body Mass Index (BMI) 41.7 Finger Stick Blood Glucose 191 Intake and Output for Last 24 Hours 08/18/19 08/19/19 08/20/19 23:59 23:59 23:59 Intake Total 4012.5 / 4012.5 1901.25 / 1901.25 1230.75 / 1230.75 Output Total 1600 / 1750 1475 / 1875 1125 / 1125 Balance 2412.5 / 2262.5 426.25 / 26.25 105.75 / 105.75 Microbiology Past 72 Hours 08/18/19 16:10 Wound - Aerobic & Anaerobic Swabs Gram Stain - Final 08/18/19 16:10 Wound - Aerobic & Anaerobic Swabs Wound Culture - Preliminary Gram negative vivien Gram positive organism 08/18/19 12:05 Urine, Random Urine Culture - Preliminary Yeast Like Organism 08/18/19 11:45 Blood Culture (Wb) - Pic Blood Culture - Preliminary GNR lactose speech pathologist 08/19/19 00:45 Stool C. difficile DNA Amplification - Final Laboratory Results 08/18/19 11:45: Diff Path Review Reviewed 08/19/19 05:00: Diff Path Review Reviewed 08/19/19 11:07: POC Glucose 117 H 08/19/19 12:50: Vancomycin Trough 24.2 H 08/19/19 16:41: POC Glucose 113 H 08/19/19 21:51: POC Glucose 110 08/20/19 04:00: WBC 15.1 H, RBC 3.22 L, Hgb 9.4 L, Hct 31.9 L, MCV 99.1 H, MCH 29.2, MCHC 29.5 L, RDW Std Deviation 59.7 H, RDW Coeff of Tio 16.5 H, Plt Count 342, MPV 9.2, Immature Gran % (Auto) 1.300 H, Neut % (Auto) 81.6 H, Lymph % (Auto) 6.6 L, [place] % (Auto) 9.5, Eos % (Auto) 0.7, Baso % (Auto) 0.3, Absolute Neuts (auto) 12.3 H, Absolute Lymphs (auto) 0.99, Nucleated RBC % 0 08/20/19 04:00: Sodium 143, Potassium 4.1, Chloride 112 H, Carbon Dioxide 27.0, Anion Gap 4 L, BUN 24 H, Creatinine 0.88, Estim Creat Clear Calc 92.62, Est GFR (MDRD) Af Amer 115, Est GFR (MDRD) Non-Af 95, BUN/Creatinine Ratio 27.4 H, G lucose 115 H, Calcium 8.3 L, Prealbumin 5.1 L 08/20/19 04:00: Random Vancomycin 13.9 Current Medications Acetaminophen (Tylenol) 650 mg PO Q6H PRN PRN PRN Reason: Pain 1-10 or Fever Aspirin (Aspirin, Baby) 81 mg PO DAILY@0800 [facility] Last Admin: 08/19/19 09:27 Dose: Not Given Documented by: Atorvastatin Calcium (Lipitor) 80 mg PO QHS [facility] Last Admin: 08/19/19 21:42 Dose: Not Given Documented by: Calamine/Phenol (Calmoseptine Ointment) 1 applic TOPICAL TID DAVE; Protocol Last Admin: 08/20/19 05:04 Dose: 1 applicatio Documented by: Dextrose (D50w Syringe) 0 gm IV X1 PRN; Protocol PRN Reason: Hypoglycemia Diazepam (Valium) 5 mg PO Q6H PRN PRN PRN Reason: SPASMS Docusate Sodium (Colace) 100 mg PO BID [facility] Last Admin: 08/19/19 21:42 Dose: Not Given Documented by: Famotidine (Pepcid) 20 mg PO DAILY [facility] Last Admin: 08/19/19 09:30 Dose: Not Given Documented by: Fenofibrate (Tricor) 145 mg PO DAILY [facility] Last Admin: 08/19/19 09:30 Dose: Not Given Documented by: Folic Acid (Folic Acid) 1 mg PO DAILY@0800 [facility] Last Admin: 08/19/19 09:27 Dose: Not Given Documented by: Glucagon () 1 mg IM .X1 PRN PRN Reason: Hypoglycemia Vancomycin IV Pharmacy to Dose (1 ea/ Sodium Chloride) 500 mls @ 250 mls/hr IV X1 PRN; Protocol PRN Reason: Rx to Dose Meropenem 1 gm/ Sodium (Chloride) 120 mls @ 33 mls/hr IV Q8 [facility] Last Admin: 08/20/19 05:01 Dose: 33 mls/hr Documented by: Sodium Chloride () 250 mls @ 15 mls/hr IV .[id number] PRN PRN Reason: Saline Flush Last Infusion: 08/20/19 05:01 Dose: 0 mls/hr Documented by: Sodium Chloride () 250 mls @ 15 mls/hr IV .[id number] PRN PRN Reason: Additional IVPB Infusion Valproic Acid 750 mg/ Dextrose 57.5 mls @ 50 mls/hr IV Q8 [facility] Last Infusion: 08/20/19 06:16 Dose: Infused Documented by: Insulin Human Lispro (Humalog Kwterapen (Bkc)) 0 unit SC ACHS [facility]; Protocol Last Admin: 08/20/19 06:18 Dose: Not Given Documented by: Lactobacillus Acidophilus (Acidophilus) 2 tablet PO DAILY [facility] Last Admin: 08/19/19 09:30 Dose: Not Given Documented by: Morphine Sulfate () 2 mg IV Q3H PRN PRN PRN Reason: Pain Score 6-10/10 Last Admin: 08/20/19 05:01 Dose: 2 mg Documented by: Multivitamins (Multivitamin) 1 tablet PO DAILY@0800 [facility] Last Admin: 08/19/19 09:27 Dose: Not Given Documented by: Nutritional Formula (Mike - [place] Flavor) 1 packet PO BID [facility] Last Admin: 08/19/19 21:42 Dose: Not Given Documented by: Ixfdd-1-Niby Ethyl Esters (Lovaza) 1 gm PO DAILY [facility] Last Admin: 08/19/19 09:30 Dose: Not Given Documented by: Oxycodone HCl (Oxyir) 5 mg PO Q4H PRN PRN PRN Reason: Pain Score 4-5/10 Pantoprazole Sodium (Protonix) 20 mg PO DAILY [facility] Last Admin: 08/19/19 09:30 Dose: Not Given Documented by: Polyethylene Glycol (Miralax) 17 gm PO DAILY [facility] Last Admin: 08/19/19 09:30 Dose: Not Given Documented by: Promethazine HCl (Phenergan Tablet) 25 mg PO Q4H PRN PRN PRN Reason: NAUSEA/VOMITING Sodium Chloride () 10 - 40 ml IV UD PRN PRN Reason: SALINE FLUSH Last Admin: 08/20/19 05:02 Dose: 30 ml Documented by: Sodium Hypochlorite (Dakins Solution 0.25% (1/2 Strength)) 1 applic TOPICAL BID [facility]; Protocol STROKE Vital Signs/Narrative: Vital Signs Temp Pulse Resp BP BP Pulse Ox 08/20/19 06:00 129 H 30 H 74/62 L 94/51 L 95 08/20/19 05:00 129 H 28 H 91/59 L 97 08/20/19 04:00 98.5 F 132 H 22 H 92/52 L 98 Medical Necessity - Tobacco Use Smoking Status: Current every day smoker Assessment/Plan All Active Problems (Last Updated 12/07/17 @ 08:57 by Shira Conte) Severe sepsis (Acute) Sacral wound (Acute) UTI (urinary tract infection) (Acute) PAD (peripheral artery disease) (Acute) Patient is a 58-year-old male admitted with altered mental status secondary to infected decubitus 1. Acute metabolic encephalopathy ?Due to combination of UTI and infected decubitus ulcer. Admitted to the intensive care unit where patient is currently being managed per protocol 2. Severe sepsis secondary to decubitus ulcer and UTI -Due to combination of UTI and infected decubitus ulcer. Admitted to the intensive care unit where patient is currently being managed per protocol 3. Infected stage IV sacral decubitus ulcer ?Patient presented with severe sepsis admitted to the intensive care unit started on broad-spectrum antibiotic therapy as well as IV fluid resuscitation. Consult was placed Dr. Nguyễn with plastic surgery as well as Dr. Crystal with general surgery for diverting colostomy creation -08/20/2019 patient underwent excision worsening infected sacral pressure sore from stool contamination, Stage IV, with partial ostectomy for osteomyelitis on 08/19/[address] Nguyễn. Patient is scheduled to undergo diverting colostomy creation by Dr. Crystal this afternoon 4. Cystitis ?Secondary to presence of indwelling Chakraborty catheter. On antibiotics cultures sent 5. Coronary artery disease -with previous CABG 6. Paroxysmal A. fib ?Rate controlled on beta-blockers and Cardizem in addition to Lovenox 7. Seizure disorder ?symptoms controlled on valproic acid 8. Hypertension - Blood pressure controlled, home medications continued with dose adjustment as needed 9. Dyslipidemia -Patient is on statin therapy, continued at home dose 10. Diabetes mellitus type II - Controlled metformin held on admission, placed on Accu-Cheks a.c. and at bedtime and covered with sliding scale insulin 11. DVT prophylaxis ?Lovenox 14. Morbid obesity with BMI of 41.4 Inpatient E&M: [id number] [facility] Hosp L3
[2019-08-20] MEDS: DAKIN'S SOL HALF STRENGTH (=0.25%) 1 APPLIC TOPICAL (08:23)
--- NOTE | 2019-08-20 08:28 | PHA.PHARE_ITS ---
Consult Pharmacy has been consulted to manage selected antiobiotic: Vancomycin Type of Consult: Follow-up Suspected Infection: Sepsis Labs: Sodium 143 mmol/L (136-145) 08/20/19 04:00 Potassium 4.1 mmol/L (3.5-5.1) 08/20/19 04:00 Chloride 112 mmol/L (98-107) H 08/20/19 04:00 Carbon Dioxide 27.0 mmol/L (21.0-32.0) 08/20/19 04:00 Anion Gap 4 (5-15) L 08/20/19 04:00 BUN 24 mg/dL (7-18) H 08/20/19 04:00 Creatinine 0.88 mg/dL (0.70-1.30) 08/20/19 04:00 Est GFR (MDRD) Af Amer 115 mL/min (>60) 08/20/19 04:00 Est GFR (MDRD) Non-Af 95 mL/min (>60) 08/20/19 04:00 BUN/Creatinine Ratio 27.4 RATIO (10-20) H 08/20/19 04:00 Glucose 115 mg/dL (74-106) H 08/20/19 04:00 Vancomycin Trough 24.2 ug/mL (5.0-15.0) H 08/19/19 12:50 Random Vancomycin 13.9 ug/mL (0.0-15.0) 08/20/19 04:00 Microbiology: Microbiology 08/18/19 16:10 Wound - Aerobic & Anaerobic Swabs Gram Stain - Final 08/18/19 16:10 Wound - Aerobic & Anaerobic Swabs Wound Culture - Preliminary GNR 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 difficile DNA Amplification - Final Goal Trough: 15-20 mcg/mL Pharmacy Plan for Drug Dosing: VANCOMYCIN LEVEL RECEIVED Current Vancomycin Dose: VANCO ON HOLD, LAST DOSE WAS ABOUT HALF A BAG OF 1500MG GIVEN 08/18 @ 1320 Number of Doses Received: 3.5 Vancomycin Level: 13.9 MG/DL Hours Since Last Dose: 15 Renal Function: 0.88 (CRCL 122.6 USING ADJ BW) Renal Function Trend: STABLE, IMPROVING SLIGHTLY (SCR 08/18 0.92) Lab/Micro: WOUND CX WITH GNR X 2, GRAM (+) ORGANISM Vancomycin Plan/Comments: DECREASE DOSE TO 1250MG Q8H (0100/0900/1700) AND GET TROUGH PRIOR TO 4TH DOSE OF NEW REGIMEN Pharmacy Service will continue to monitor and adjust dosing as required. Labs to be done on [date and time ordered]: 08/21/19 @ 0830
--- NOTE | 2019-08-20 08:38 | NURSING ---
wound photo: sacrum
--- NOTE | 2019-08-20 09:45 | NURSING ---
0945 OR team arrived in room to transport patient.
--- NOTE | 2019-08-20 09:49 | PN.SURG_ITS ---
Patient Problems: Active and Suspected Problems (Last Updated 12/07/17 @ 08:57 by Shira Conte) Severe sepsis (Acute) Sacral wound (Acute) UTI (urinary tract infection) (Acute) Subjective: Patient had successful debridement yesterday. He did have 1 bowel movement after debridement and the dressings were changed. He was not able to take antibiotic bowel prep due to being too confused to take pills yesterday. - Physical Exam Vitals/I&O's: Vital Signs Temp Pulse Resp BP Pulse Ox 98.0 F 122 H 25 H 126/77 H 97 08/20/19 08:00 08/20/19 09:00 08/20/19 09:00 08/20/19 09:00 08/20/19 09:40 Oxygen Flow Rate (L/min) 2 Oxygen Delivery Method Room Air Weight: 283 lb 1.176 oz Body Mass Index (BMI) 41.9 Finger Stick Blood Glucose 191 Intake and Output for Last 24 Hours 08/18/19 08/19/19 08/20/19 23:59 23:59 23:59 Intake Total 4012.5 / 4012.5 1901.25 / 1901.25 1350.75 / 1350.75 Output Total 1600 / 1750 1475 / 1875 1425 / 1425 Balance 2412.5 / 2262.5 426.25 / 26.25 -74.25 / -74.25 General: No apparent distress, Confused Neck: No JVD Cardiovascular: Tachycardic Abdomen: Soft, Non Tender, Non-Distended Neurological: Cranial nerves II-XII grossly intact Psych/Mental Status: Normal Affect Microbiology Past 72 Hours 08/18/19 11:45 Blood Culture (Wb) - Pic Blood Culture - Preliminary GNR lactose rat culturist 08/18/19 16:10 Wound - Aerobic & Anaerobic Swabs Gram Stain - Final 08/18/19 16:10 Wound - Aerobic & Anaerobic Swabs Wound Culture - Preliminary GNR lactose rat culturist Gram negative vivien Gram negative vivien#2 Gram positive organism 08/18/19 12:05 Urine, Random Urine Culture - Final Presumptive C albicans 08/19/19 00:45 Stool C. difficile DNA Amplification - Final Laboratory Results 08/18/19 11:45: Diff Path Review Reviewed 08/19/19 05:00: Diff Path Review Reviewed 08/19/19 11:07: POC Glucose 117 H 08/19/19 12:50: Vancomycin Trough 24.2 H 08/19/19 16:41: POC Glucose 113 H 08/19/19 21:51: POC Glucose 110 08/20/19 04:00: WBC 15.1 H, RBC 3.22 L, Hgb 9.4 L, Hct 31.9 L, MCV 99.1 H, MCH 29.2, MCHC 29.5 L, RDW Std Deviation 59.7 H, RDW Coeff of Tio 16.5 H, Plt Count 342, MPV 9.2, Immature Gran % (Auto) 1.300 H, Neut % (Auto) 81.6 H, Lymph % (Auto) 6.6 L, [place] % (Auto) 9.5, Eos % (Auto) 0.7, Baso % (Auto) 0.3, Absolute Neuts (auto) 12.3 H, Absolute Lymphs (auto) 0.99, Nucleated RBC % 0 08/20/19 04:00: Sodium 143, Potassium 4.1, Chloride 112 H, Carbon Dioxide 27.0, Anion Gap 4 L, BUN 24 H, Creatinine 0.88, Estim Creat Clear Calc 92.62, Est GFR (MDRD) Af Amer 115, Est GFR (MDRD) Non-Af 95, BUN/Creatinine Ratio 27.4 H, Glucose 115 H, Calcium 8.3 L, Prealbumin 5.1 L 08/20/19 04:00: Random Vancomycin 13.9 Current Medications Acetaminophen (Tylenol) 650 mg PO Q6H PRN PRN PRN Reason: Pain 1-10 or Fever Aspirin (Aspirin, Baby) 81 mg PO DAILY@0800 [facility] Last Admin: 08/20/19 08:43 Dose: Not Given Documented by: Atorvastatin Calcium (Lipitor) 80 mg PO QHS [facility] Last Admin: 08/19/19 21:42 Dose: Not Given Documented by: Calamine/Phenol (Calmoseptine Ointment) 1 applic TOPICAL TID [facility]; Protocol Last Admin: 08/20/19 05:04 Dose: 1 applicatio Documented by: Dextrose (D50w Syringe) 0 gm IV X1 PRN; Protocol PRN Reason: Hypoglycemia Diazepam (Valium) 5 mg PO Q6H PRN PRN PRN Reason: SPASMS Docusate Sodium (Colace) 100 mg PO BID [facility] Last Admin: 08/20/19 08:44 Dose: Not Given Documented by: Famotidine (Pepcid) 20 mg PO DAILY [facility] Last Admin: 08/20/19 08:45 Dose: Not Given Documented by: Fenofibrate (Tricor) 145 mg PO DAILY [facility] Last Admin: 08/20/19 08:45 Dose: Not Given Documented by: Folic Acid (Folic Acid) 1 mg PO DAILY@0800 [facility] Last Admin: 08/20/19 08:43 Dose: Not Given Documented by: Glucagon () 1 mg IM .X1 PRN PRN Reason: Hypoglycemia Vancomycin IV Pharmacy to Dose (1 ea/ Sodium Chloride) 500 mls @ 250 mls/hr IV X1 PRN; Protocol PRN Reason: Rx to Dose Meropenem 1 gm/ Sodium (Chloride) 120 mls @ 33 mls/hr IV Q8 [facility] Last Infusion: 08/20/19 08:43 Dose: Infused Documented by: Sodium Chloride () 250 mls @ 15 mls/hr IV .[id number] PRN PRN Reason: Saline Flush Last Infusion: 08/20/19 05:01 Dose: 0 mls/hr Documented by: Sodium Chloride () 250 mls @ 15 mls/hr IV .[id number] PRN PRN Reason: Additional IVPB Infusion Valproic Acid 750 mg/ Dextrose 57.5 mls @ 50 mls/hr IV Q8 [facility] Last Infusion: 08/20/19 06:16 Dose: Infused Documented by: Vancomycin HCl 1,250 mg/ (Sodium Chloride) 275 mls @ 167 mls/hr IV Q8H [facility] Last Admin: 08/20/19 09:28 Dose: 167 mls/hr Documented by: Insulin Human Lispro (Humalog [place] (Bkc)) 0 unit SC ACHS [facility]; Protocol Last Admin: 08/20/19 06:18 Dose: Not Given Documented by: Lactobacillus Acidophilus (Acidophilus) 2 tablet PO DAILY [facility] Last Admin: 08/20/19 08:44 Dose: Not Given Documented by: Morphine Sulfate () 2 mg IV Q3H PRN PRN PRN Reason: Pain Score 6-10/10 Last Admin: 08/20/19 09:40 Dose: 2 mg Documented by: Multivitamins (Multivitamin) 1 tablet PO DAILY@0800 [facility] Last Admin: 08/20/19 08:43 Dose: Not Given Documented by: Nutritional Formula (Mike - [place] Flavor) 1 packet PO BID [facility] Last Admin: 08/20/19 08:44 Dose: Not Given Documented by: [id number] Ethyl Esters (Lovaza) 1 gm PO DAILY [facility] Last Admin: 08/20/19 08:44 Dose: Not Given Documented by: Oxycodone HCl (Oxyir) 5 mg PO Q4H PRN PRN PRN Reason: Pain Score 4-5/10 Pantoprazole Sodium (Protonix) 20 mg PO DAILY [facility] Last Admin: 08/20/19 08:45 Dose: Not Given Documented by: Polyethylene Glycol (Miralax) 17 gm PO DAILY [facility] Last Admin: 08/20/19 08:44 Dose: Not Given Documented by: Promethazine HCl (Phenergan Tablet) 25 mg PO Q4H PRN PRN PRN Reason: NAUSEA/VOMITING Sodium Chloride () 10 - 40 ml IV UD PRN PRN Reason: SALINE FLUSH Last Admin: 08/20/19 05:02 Dose: 30 ml Documented by: Sodium Hypochlorite (Dakins Solution 0.25% (1/2 Strength)) 1 applic TOPICAL BID [facility]; Protocol Last Admin: 08/20/19 08:23 Dose: 1 applicatio Documented by: Medical Necessity - Tobacco Use Smoking Status: Current every day smoker Assessment/Plan All Active Problems (Last Updated 12/07/17 @ 08:57 by Shira Conte) Severe sepsis (Acute) Sacral wound (Acute) UTI (urinary tract infection) (Acute) PAD (peripheral artery disease) (Acute) 58-year-old male with infected decubitus ulcer 1. Patient had debridement of sacral ulcer yesterday. Plan for laparoscopic diverting sigmoid colostomy today in the operating room. I obtained consent from the patient's POA his significant other. I discussed this with him as well but he is confused at this time. Jared Crystal MD Pager: [facility] [address] [place] [address], [address] [place] [address] Office:
--- NOTE | 2019-08-20 10:00 | COL_PTH ---
PATIENT: LUNA RICHARD LOC: [facility] U#:[id number] AGE/SX: 59/M ROOM: [facility] RE08/18/[address]: Dr. Cristopher Calvert MD : [id number] BED: 1 DIS: 09/05/2019 SPEC #: [id number] RECD: 08/20/19 13:31 STATUS: TIMOTHY BELL #: [id number] KYAW: 08/20/19 10:[address]: Jared Crystal DEPT: SURGICAL PATHOLOGY RECD BY: Thom Aguilar ENTERED: 08/21/19 07:54 SP TYPE: COLON OTHR DR: DO Dr. Ricky Wright Dr., MD Dr. Daniel Peabody, MD Dr. Grabriel Galang, MD Dr. James A Slaby, MD Dr. Marc Fiorentino, MD Dr. Mehrdad Tavallaee, MD Dr. Nana Yaa Koram, MD Dr. Robert D Cebul, MD Dr. Robert Leininger, MD Dr. Tamera Robotham, MD Amanda Griffith, PA-C Tissues: A - Sigmoid colon biopsy B - Ileum, NOS Procedures: Surgery Specimen Level V HEADER OPERATION: Laparoscopic sigmoid partial colectomy with end colostomy; laparoscopic ileocelcectomy with primary anastomosis PRE-OP DIAGNOSIS: Infected sacral ulcer; iatrogenic perforation of cecum TISSUE SUBMITTED: A - Sigmoid colon, B - Ileocecum MICROSCOPIC DIAGNOSIS A. Sigmoid colon, partial colectomy: Segment of sigmoid colon, no pathologic diagnosis, clinically end colostomy. B. Ileocecum, right hemicolectomy: Focal area of transmural hemorrhage, cecum, clinically iatrogenic perforation of cecum. CITLALI:nidia 08/25/19 MICROSCOPIC DESCRIPTION Slides are reviewed. GROSS DESCRIPTION A - Received in fixative is one container labeled with the patient's name and designated sigmoid colon. The specimen consists of a segment of colon with attached pericolonic adipose tissue measuring 4.5 cm in length. Both resection margins are stapled. No mucosal lesion is identified. Sections of the attached pericolonic adipose tissue do not reveal any obviously enlarged lymph node. Rehab Nurse sections are submitted in two cassettes as follows: 1 - colon, 2 - pericolonic adipose tissue. / CITLALI:nidia 08/21/19 B - Received in fixative is one container labeled with the patient's name and designated ileocecum. The specimen consists of a right hemicolectomy specimen consisting of cecum with attached segment of small intestine and appendix with attached pericolonic adipose tissue and mesenteric tissue. The cecum measures 7 x 2.5 x 3 cm. Segment of small intestine measures 9 cm in length and the appendix measures 5.5 cm in length and 0.5 cm in diameter. Both resection margins are stapled. No mucosal lesion is identified. Also present in the container is a donut shaped piece of tissue measuring 4 x 2 x 1 cm. Sections will be submitted after fixation. / CITLALI:nidia 08/21/19 Sections of the appendix reveal unremarkable cut surfaces. Sections of the pericolonic adipose tissue and mesenteric tissue do not reveal any obviously enlarged lymph node. Rehab Nurse sections are submitted in seven cassettes as follows: 1 - donut, 2 - resection margins right hemicolectomy specimen, 3 - appendix, 4 - ileocecal valve, 5 - small intestine, 6 - large intestine, 7?- pericolonic and mesenteric tissue. / Makayla 08/22/19 TC:5 CPT: 99034 x2
--- NOTE | 2019-08-20 10:52 | CASEMGMT ---
Readmission chart review: Pt presented for excision of Stage IV sacral pressure sore by Dr. Nguyễn on 08/03-08/13/19 and pt was recommended to have diverting colostomy at that time but pt declined during admission. Wound vac was not able to be placed at that time d/t close proximity to anal opening. Pt returned to [facility] in [place] where he has been fdc for the last several years d/t epilepsy and non-ambulatory status. ID did see pt during this visit and pt was sent back to SNF with plan to continue Eravacycline 1mg/kg IV every 12 hours thru 09/08/2019 for polymicrobial sacral wound infection s/p surgical debridement. Pt then returned to [facility] ED on 08/18/2019 from SNF for altered mental status which they believed was caused by worsening wound infection. Per Dr. Nguyễn, pt with infected worsening sacral pressure sore from stool contamination and now osteomyelitis. Pt back to OR on 08/19/[address] Nguyễn and then consulted with Dr. Crystal for diverting sigmoid colostomy to be performed 08/20/2019. Pt still with some confusion but all was discussed with sig other as well and consent given. Plan is for pt to return to [facility] in [place] once medically ready. CM/SW to follow for any further discharge planning/needs. Cyndi MOCTEZUMA CM
[2019-08-20] MEDS: Bupiv/Epi 0.25% 30 ML Vial (11:45)
--- NOTE | 2019-08-20 13:13 | OP.PCM_ITS ---
Problem List (1) Severe sepsis Status: Acute (2) Sacral wound Status: Acute Qualifiers: Encounter type: initial encounter Qualified Code(s): S31.000A - Unspecified open wound of lower back and pelvis without penetration into retroperitoneum, initial encounter Report of Operation Date of Procedure: 08/20/19 Pre-Operative Diagnosis: Infected sacral ulcer need for fecal diversion due to immobility Post-Operative Diagnosis: Same Surgery/Procedure Performed:: 1. Laparoscopic sigmoid partial colectomy with end colostomy. 2. Repair of right colon enterotomy Specimen's removed: Segment of sigmoid colon Description of Procedure: The patient was brought to the operating room and general anesthesia was induced. The abdomen was prepped and draped in usual sterile fashion. An incision was made in the right upper quadrant and a 5 mm port was used to Visiport into the abdomen. The abdomen was insufflated 15 mmHg. The abdomen was inspected and there appeared to be a small enterotomy in the right colon. There was no spillage of bile. A 12 mm port was placed in the right lower quadrant as well as the supraumbilical space under direct visualization. Next using laparoscopic needle drivers, 2-0 silk suture was used to close the enterotomy. There was no leakage of bile. It appeared to be fully closed using the sutures. Next attention was made to the lower abdomen and the patient was placed in Trendelenburg position. The sigmoid colon was identified and followed to the pelvis. A window was made in the mesentery and the distal sigmoid was divided with a laparoscopic stapler. The mesentery was taken down using Enseal proximally until the mid sigmoid colon was reached which was the most floppy part of the sigmoid with the most distance. Next this was brought to the proposed port site and appeared to reach well. The port site skin was removed using electrocautery and the incision was deepened to the fascia. A cruciate incision was made in the anterior fascia and the muscle split and the posterior sheath was divided. 2 digits were able to be placed through the opening and then the distal sigmoid colon was delivered through the stoma site. The abdomen was then reinsufflated and the mesentery was inspected and appeared to be having good hemostasis. The right colon was inspected once more and there was no spillage of bile and the enterotomy in the right colon was successfully closed. Next the Vincent Madrigal needle was used to close the fascia of both 12 mm port sites using 0 Vicryl suture. The abdomen was allowed to desufflate and the incisions were anesthetized and closed with interrupted 4 Monocryl and Steri- Strips and bandages. Next a Comstock was placed across the sigmoid colon and the distal sigmoid colon was removed using scalpel. The stoma was then matured to the skin using interrupted 3-0 Vicryl sutures. The stoma was digitized and there was good lumen with no twisting and there was no stricturing. Next the stoma appliance was attached. The patient was awoken and taken to PACU in stable condition. Patient tolerated procedure well. - Complications Right colon enterotomy from trocar placement repaired with sutures - Admit VTE Documentation VTE Mechan Device Prophylaxis: SCD's
--- NOTE | 2019-08-20 14:01 | RAD_ITS ---
STUDY: X-RAY - ABDOMEN/PELVIS REASON FOR EXAM: Male, 58 years old. NG PLACEMENT TECHNIQUE: Single AP view of the abdomen / pelvis. COMPARISON: None. FINDINGS: The tip of the NG tube is in the distal portion of the body of the stomach. RAD/Abdomen Single View IMPRESSION: The tip of the nasogastric tube is in the distal portion of the body of the stomach. Electronically Signed: Erwin Lazo, at 14:45 EDT , Service support ,
--- NOTE | 2019-08-20 14:15 | NURSING ---
Addendum entered by Reji Roberts 08/20/19 14:44: 1415 Pt tolerated procedure well Original Note: 1415 NG tube placed with Moe Goode RN's assistance per Dr. Campbell's orders. Radiology called for KUB xray to confirm placement. 1425 Radiology techs at bedside for KUB.
--- NOTE | 2019-08-20 14:41 | PCM.PN.SRG ---
Patient Problems: Active and Suspected Problems (Last Updated 12/07/17 @ 08:57 by Shira Conte) Severe sepsis (Acute) Sacral wound (Acute) UTI (urinary tract infection) (Acute) Subjective: Postop #1 Patient had diverting colostomy. - Physical Exam Vitals/I&O's: Vital Signs Temp Pulse Resp BP Pulse Ox 96.9 F L 126 H 30 H 118/58 L 95 08/20/19 12:45 08/20/19 13:45 08/20/19 13:45 08/20/19 13:45 08/20/19 13:45 Oxygen Flow Rate (L/min) 2 Oxygen Delivery Method Nasal Cannula Weight: 283 lb 1.176 oz Body Mass Index (BMI) 41.9 Finger Stick Blood Glucose 191 Intake and Output for Last 24 Hours 08/18/19 08/19/19 08/20/19 23:59 23:59 23:59 Intake Total 4012.5 / 4012.5 1901.25 / 1901.25 1625.75 / 1625.75 Output Total 1600 / 1750 1475 / 1875 1725 / 1725 Balance 2412.5 / 2262.5 426.25 / 26.25 -99.25 / -99.25 General: - - patient was sleepy. Skin: Ulcer/ Wound - sacral wound is stable. No active bleeding. Redresssed wtih Dakin's dressing. Microbiology Past 72 Hours 08/18/19 11:45 Blood Culture (Wb) - Pic Blood Culture - Preliminary GNR lactose compressor station engineer chief 08/19/19 16:06 Tissue - Sacral Gram Stain - Final 08/19/19 16:06 Tissue - Sacral Wound Culture - Preliminary Gram negative vivien Gram positive organism 08/19/19 16:06 Tissue - Sacral Gram Stain - Final 08/19/19 16:06 Tissue - Sacral Wound Culture - Preliminary GNR lactose compressor station engineer chief Gram negative vivien 08/18/19 11:33 Blood Culture (Wb) - Arm Right Blood Culture - Preliminary No growth in 48 hours. 08/18/19 16:10 Wound - Aerobic & Anaerobic Swabs Gram Stain - Final 08/18/19 16:10 Wound - Aerobic & Anaerobic Swabs Wound Culture - Preliminary GNR lactose compressor station engineer chief Gram negative vivien Gram negative vivien#2 Gram positive organism 08/18/19 12:05 Urine, Random Urine Culture - Final Presumptive C albicans 08/19/19 00:45 Stool C. difficile DNA Amplification - Final Pathology - pending. Laboratory Results 08/19/19 16:41: POC Glucose 113 H 08/19/19 21:51: POC Glucose 110 08/20/19 04:00: WBC 15.1 H, RBC 3.22 L, Hgb 9.4 L, Hct 31.9 L, MCV 99.1 H, MCH 29.2, MCHC 29.5 L, RDW Std Deviation 59.7 H, RDW Coeff of Tio 16.5 H, Plt Count 342, MPV 9.2, Immature Gran % (Auto) 1.300 H, Neut % (Auto) 81.6 H, Lymph % (Auto) 6.6 L, [place] % (Auto) 9.5, Eos % (Auto) 0.7, Baso % (Auto) 0.3, Absolute Neuts (auto) 12.3 H, Absolute Lymphs (auto) 0.99, Nucleated RBC % 0 08/20/19 04:00: Sodium 143, Potassium 4.1, Chloride 112 H, Carbon Dioxide 27.0, Anion Gap 4 L, BUN 24 H, Creatinine 0.88, Estim Creat Clear Calc 92.62, Est GFR (MDRD) Af Amer 115, Est GFR (MDRD) Non-Af 95, BUN/Creatinine Ratio 27.4 H, Glucose 115 H, Calcium 8.3 L, Prealbumin 5.1 L 08/20/19 04:00: Random Vancomycin 13.9 Current Medications Acetaminophen (Tylenol) 650 mg PO Q6H PRN PRN PRN Reason: Pain 1-10 or Fever Aspirin (Aspirin, Baby) 81 mg PO DAILY@0800 COUNTS INCLUDE 234 BEDS AT THE [facility] Last Admin: 08/20/19 08:43 Dose: Not Given Documented by: Atorvastatin Calcium (Lipitor) 80 mg PO QHS COUNTS INCLUDE 234 BEDS AT THE [facility] Last Admin: 08/19/19 21:42 Dose: Not Given Documented by: Calamine/Phenol (Calmoseptine Ointment) 1 applic TOPICAL TID COUNTS INCLUDE 234 BEDS AT THE [facility]; Protocol Last Admin: 08/20/19 13:36 Dose: 1 applicatio Documented by: Dextrose (D50w Syringe) 0 gm IV X1 PRN; Protocol PRN Reason: Hypoglycemia Diazepam (Valium) 5 mg PO Q6H PRN PRN PRN Reason: SPASMS Diltiazem HCl (Cardizem) 60 mg PO Q8 COUNTS INCLUDE 234 BEDS AT THE [facility] Divalproex Sodium (Depakote) 750 mg PO TIDCM COUNTS INCLUDE 234 BEDS AT THE [facility] Docusate Sodium (Colace) 100 mg PO BID COUNTS INCLUDE 234 BEDS AT THE [facility] Last Admin: 08/20/19 08:44 Dose: Not Given Documented by: Famotidine (Pepcid) 20 mg PO DAILY COUNTS INCLUDE 234 BEDS AT THE [facility] Last Admin: 08/20/19 08:45 Dose: Not Given Documented by: Fenofibrate (Tricor) 145 mg PO DAILY COUNTS INCLUDE 234 BEDS AT THE [facility] Last Admin: 08/20/19 08:45 Dose: Not Given Documented by: Folic Acid (Folic Acid) 1 mg PO DAILY@0800 COUNTS INCLUDE 234 BEDS AT THE [facility] Last Admin: 08/20/19 08:43 Dose: Not Given Documented by: Glucagon () 1 mg IM .X1 PRN PRN Reason: Hypoglycemia Vancomycin IV Pharmacy to Dose (1 ea/ Sodium Chloride) 500 mls @ 250 mls/hr IV X1 PRN; Protocol PRN Reason: Rx to Dose Meropenem 1 gm/ Sodium (Chloride) 120 mls @ 33 mls/hr IV Q8 COUNTS INCLUDE 234 BEDS AT THE [facility] Last Admin: 08/20/19 13:40 Dose: 33 mls/hr Documented by: Sodium Chloride () 250 mls @ 15 mls/hr IV .[id number] PRN PRN Reason: Saline Flush Last Infusion: 08/20/19 05:01 Dose: 0 mls/hr Documented by: Sodium Chloride () 250 mls @ 15 mls/hr IV .[id number] PRN PRN Reason: Additional IVPB Infusion Vancomycin HCl 1,250 mg/ (Sodium Chloride) 275 mls @ 167 mls/hr IV Q8H COUNTS INCLUDE 234 BEDS AT THE [facility] Last Infusion: 08/20/19 11:08 Dose: Infused Documented by: Eravacycline 125 mg/ Sodium (Chloride) 262.5 mls @ 262.5 mls/hr IV Q12 COUNTS INCLUDE 234 BEDS AT THE [facility] Insulin Human Lispro (Humalog Kwikpen (Bkc)) 0 unit SC ACHS COUNTS INCLUDE 234 BEDS AT THE [facility]; Protocol Last Admin: 08/20/19 10:40 Dose: Not Given Documented by: Lactobacillus Acidophilus (Acidophilus) 2 tablet PO DAILY COUNTS INCLUDE 234 BEDS AT THE [facility] Last Admin: 08/20/19 08:44 Dose: Not Given Documented by: Metoprolol Tartrate (Lopressor (Beta Dana)) 100 mg PO BID COUNTS INCLUDE 234 BEDS AT THE [facility] Morphine Sulfate () 2 mg IV Q3H PRN PRN PRN Reason: Pain Score 6-10/10 Last Admin: 08/20/19 09:40 Dose: 2 mg Documented by: Multivitamins (Multivitamin) 1 tablet PO DAILY@0800 COUNTS INCLUDE 234 BEDS AT THE [facility] Last Admin: 08/20/19 08:43 Dose: Not Given Documented by: Nutritional Formula (Mike - [place] Flavor) 1 packet PO BID COUNTS INCLUDE 234 BEDS AT THE [facility] Last Admin: 08/20/19 08:44 Dose: Not Given Documented by: Sahos-6-Ipfr Ethyl Esters (Lovaza) 1 gm PO DAILY COUNTS INCLUDE 234 BEDS AT THE [facility] Last Admin: 08/20/19 08:44 Dose: Not Given Documented by: Oxycodone HCl (Oxyir) 5 mg PO Q4H PRN PRN PRN Reason: Pain Score 4-5/10 Pantoprazole Sodium (Protonix) 20 mg PO DAILY COUNTS INCLUDE 234 BEDS AT THE [facility] Last Admin: 08/20/19 08:45 Dose: Not Given Documented by: Polyethylene Glycol (Miralax) 17 gm PO DAILY COUNTS INCLUDE 234 BEDS AT THE [facility] Last Admin: 08/20/19 08:44 Dose: Not Given Documented by: Promethazine HCl (Phenergan Tablet) 25 mg PO Q4H PRN PRN PRN Reason: NAUSEA/VOMITING Sodium Chloride () 10 - 40 ml IV UD PRN PRN Reason: SALINE FLUSH Last Admin: 08/20/19 05:02 Dose: 30 ml Documented by: Sodium Hypochlorite (Dakins Solution 0.25% (1/2 Strength)) 1 applic TOPICAL BID COUNTS INCLUDE 234 BEDS AT THE [facility]; Protocol Last Admin: 08/20/19 08:23 Dose: 1 applicatio Documented by: Medical Necessity - Tobacco Use Smoking Status: Current every day smoker Assessment/Plan All Active Problems (Last Updated 12/07/17 @ 08:57 by Shira Conte) Severe sepsis (Acute) Sacral wound (Acute) UTI (urinary tract infection) (Acute) PAD (peripheral artery disease) (Acute) 1. 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 2. Diabetes mellitus. 3. Sepsis. 4. Epilepsy. 5. Smoker. 6. MRSA. 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 9. PAD. 10. s/p excision worsening infected sacral pressure sore from stool contamination, Stage IV, with partial ostectomy for osteomyelitis. Sacral wound is stable. No active bleeding noted. Redressed with Dakin's dressing. Patient is having diverting colostomy today. Continue IV Vancomycin and Meropenem. Cultures thus far show Gram negative vivien and GNR lactose compressor station engineer chief. Pathology is pending. WBC has improved to 15.1. Prealbumin is 5.1. Will need nutritional supplementation to help the healing process.
--- NOTE | 2019-08-20 14:54 | PN.ID_ITS ---
Patient Problems: Active and Suspected Problems (Last Updated 12/07/17 @ 08:57 by Shira Conte) Severe sepsis (Acute) Sacral wound (Acute) UTI (urinary tract infection) (Acute) Subjective: Sleeping s/p OR this AM. No fever. - Physical Exam Vitals/I&O's: Vital Signs Temp Pulse Resp BP Pulse Ox 96.9 F L 125 H 28 H 129/68 H 93 08/20/19 12:45 08/20/19 14:00 08/20/19 14:00 08/20/19 14:00 08/20/19 14:00 Oxygen Flow Rate (L/min) 4 Oxygen Delivery Method Nasal Cannula Weight: 128.4 kg Body Mass Index (BMI) 41.9 Finger Stick Blood Glucose 191 Intake and Output for Last 24 Hours 08/18/19 08/19/19 08/20/19 23:59 23:59 23:59 Intake Total 4012.5 / 4012.5 1901.25 / 1901.25 1625.75 / 1625.75 Output Total 1600 / 1750 1475 / 1875 1725 / 1725 Balance 2412.5 / 2262.5 426.25 / 26.25 -99.25 / -99.25 General: No apparent distress Lungs: Clear to auscultation, Normal air movement Cardiovascular: Tachycardic Abdomen: Soft, Non Tender, Non-Distended, - - ostomy in place Skin: Ulcer/ Wound - bandaged Microbiology Past 72 Hours 08/18/19 11:45 Blood Culture (Wb) - Pic Blood Culture - Preliminary GNR lactose manager zone 08/19/19 16:06 Tissue - Sacral Gram Stain - Final 08/19/19 16:06 Tissue - Sacral Wound Culture - Preliminary Gram negative vivien Gram positive organism 08/19/19 16:06 Tissue - Sacral Gram Stain - Final 08/19/19 16:06 Tissue - Sacral Wound Culture - Preliminary GNR lactose manager zone Gram negative vivien 08/18/19 11:33 Blood Culture (Wb) - Arm Right Blood Culture - Preliminary No growth in 48 hours. 08/18/19 16:10 Wound - Aerobic & Anaerobic Swabs Gram Stain - Final 08/18/19 16:10 Wound - Aerobic & Anaerobic Swabs Wound Culture - Preliminary GNR lactose manager zone Gram negative vivien Gram negative vivien#2 Gram positive organism 08/18/19 12:05 Urine, Random Urine Culture - Final Presumptive C albicans 08/19/19 00:45 Stool C. difficile DNA Amplification - Final Laboratory Results 08/19/19 16:41: POC Glucose 113 H 08/19/19 21:51: POC Glucose 110 08/20/19 04:00: WBC 15.1 H, RBC 3.22 L, Hgb 9.4 L, Hct 31.9 L, MCV 99.1 H, MCH 29.2, MCHC 29.5 L, RDW Std Deviation 59.7 H, RDW Coeff of Tio 16.5 H, Plt Count 342, MPV 9.2, Immature Gran % (Auto) 1.300 H, Neut % (Auto) 81.6 H, Lymph % (Auto) 6.6 L, [place] % (Auto) 9.5, Eos % (Auto) 0.7, Baso % (Auto) 0.3, Absolute Neuts (auto) 12.3 H, Absolute Lymphs (auto) 0.99, Nucleated RBC % 0 08/20/19 04:00: Sodium 143, Potassium 4.1, Chloride 112 H, Carbon Dioxide 27.0, Anion Gap 4 L, BUN 24 H, Creatinine 0.88, Estim Creat Clear Calc 92.62, Est GFR (MDRD) Af Amer 115, Est GFR (MDRD) Non-Af 95, BUN/Creatinine Ratio 27.4 H, Glucose 115 H, Calcium 8.3 L, Prealbumin 5.1 L 08/20/19 04:00: Random Vancomycin 13.9 Current Medications Acetaminophen (Tylenol Liquid) 650 mg GT Q6H PRN PRN PRN Reason: FEVER Aspirin (Aspirin, Baby) 81 mg GT DAILY [facility] Atorvastatin Calcium (Lipitor) 80 mg GT QHS [facility] Calamine/Phenol (Calmoseptine Ointment) 1 applic TOPICAL TID [facility]; Protocol Last Admin: 08/20/19 13:36 Dose: 1 applicatio Documented by: Dextrose (D50w Syringe) 0 gm IV X1 PRN; Protocol PRN Reason: Hypoglycemia Diazepam (Valium) 5 mg GT Q6H PRN PRN PRN Reason: SPASMS Diltiazem HCl (Cardizem) 60 mg GT Q8 [facility] Divalproex Sodium (Depakote) 750 mg PO TIDCM [facility] Docusate Sodium (Colace Syrup) 100 mg GT BID [facility] Famotidine (Pepcid) 20 mg GT DAILY [facility] Fenofibrate (Tricor) 145 mg GT DAILY [facility] Folic Acid (Folic Acid) 1 mg GT DAILY [facility] Glucagon () 1 mg IM .X1 PRN PRN Reason: Hypoglycemia Vancomycin IV Pharmacy to Dose (1 ea/ Sodium Chloride) 500 mls @ 250 mls/hr IV X1 PRN; Protocol PRN Reason: Rx to Dose Meropenem 1 gm/ Sodium (Chloride) 120 mls @ 33 mls/hr IV Q8 [facility] Last Admin: 08/20/19 13:40 Dose: 33 mls/hr Documented by: Sodium Chloride () 250 mls @ 15 mls/hr IV .[id number] PRN PRN Reason: Saline Flush Last Infusion: 08/20/19 05:01 Dose: 0 mls/hr Documented by: Sodium Chloride () 250 mls @ 15 mls/hr IV .[id number] PRN PRN Reason: Additional IVPB Infusion Vancomycin HCl 1,250 mg/ (Sodium Chloride) 275 mls @ 167 mls/hr IV Q8H [facility] Last Infusion: 08/20/19 11:08 Dose: Infused Documented by: Eravacycline 125 mg/ Sodium (Chloride) 262.5 mls @ 262.5 mls/hr IV Q12 [facility] Insulin Human Lispro (Humalog Kwikpen (Bkc)) 0 unit SC ACHS [facility]; Protocol Last Admin: 08/20/19 10:40 Dose: Not Given Documented by: Lactobacillus Acidophilus (Acidophilus) 2 tablet GT DAILY [facility] Metoprolol Tartrate (Lopressor (Beta Dana)) 100 mg GT BID [facility] Morphine Sulfate () 2 mg IV Q3H PRN PRN PRN Reason: Pain Score 6-10/10 Last Admin: 08/20/19 09:40 Dose: 2 mg Documented by: Multivitamins (Multivitamin) 1 tablet PO DAILY@0800 [facility] Last Admin: 08/20/19 08:43 Dose: Not Given Documented by: Nutritional Formula (Mike - [place] Flavor) 1 packet PO BID [facility] Last Admin: 08/20/19 08:44 Dose: Not Given Documented by: Qniya-8-Flnf Ethyl Esters (Lovaza) 1 gm PO DAILY [facility] Last Admin: 08/20/19 08:44 Dose: Not Given Documented by: Oxycodone HCl (Oxyir) 5 mg PO Q4H PRN PRN PRN Reason: Pain Score 4-5/10 Pantoprazole Sodium (Protonix) 20 mg PO DAILY [facility] Last Admin: 08/20/19 08:45 Dose: Not Given Documented by: Polyethylene Glycol (Miralax) 17 gm GT DAILY [facility] Promethazine HCl (Phenergan Tablet) 25 mg GT Q4H PRN PRN PRN Reason: NAUSEA/VOMITING Sodium Chloride () 10 - 40 ml IV UD PRN PRN Reason: SALINE FLUSH Last Admin: 08/20/19 05:02 Dose: 30 ml Documented by: Sodium Hypochlorite (Dakins Solution 0.25% (1/2 Strength)) 1 applic TOPICAL BID [facility]; Protocol Last Admin: 08/20/19 08:23 Dose: 1 applicatio Documented by: Medical Necessity - Tobacco Use Smoking Status: Current every day smoker Route of nutrition/ use of supplements: [] Nutritional Intake: [] IV Site: [] Chakraborty Catheter: [] - Assessment/Plan Antibiotics: [] Assessment/Plan: [] Active and Suspected Problems (Last Updated 12/07/17 @ 08:57 by Shira Conte) Severe sepsis (Acute) Sacral wound (Acute) UTI (urinary tract infection) (Acute) severe sepsis with GNR bacteremia, suspected source sacral osteo - Ucx pending. Recent surg cx with MDR AcB, MRSA, coryne, proteus, and anaerobes. OR 08/[address] Nguyễn for I&D. OR this AM 08/[address] Crystal for diverting ostomy. Cont vanc/gudelia/eravacycline. Wbc much improved. Will follow, d/w Dr. Nguyễn and pharmacy
--- NOTE | 2019-08-20 15:35 | CT_ITS ---
STUDY: CT ABDOMEN AND PELVIS WITH CONTRAST REASON FOR EXAM: Male, 58 years old. RIGHT COLON ENTEROMY REPAIRED DURING SURGERY today. Checking for continued perforation. RADIATION DOSAGE (If Supplied By Facility): CTDIvol = ( 17.46 ) mGy, DLP = ( 1661.97 ) mGycm TECHNIQUE: Transaxial images were obtained from the dome of the diaphragm to the symphysis pubis without oral contrast. IV 100mL Isovue-370 was administered. Sagittal and coronal images were reconstructed. Individualized dose optimization techniques were used for this CT. COMPARISON: 08/18/2019. FINDINGS: Limited views through the lower chest show increasing atelectasis and trace effusions in both posterior costophrenic angles. There is fatty liver. There is marked hepatomegaly. There is cholelithiasis. There is moderate splenomegaly. Normal adrenal glands. Stable right ureteral stent. Minimal right hydronephrosis. No acute abnormalities of the left kidney. Evaluation of the GI tract is significantly limited by absence of oral contrast. Nasogastric tube terminates in the distal stomach. No dilated loops of bowel or evidence for obstruction. Segments of bowel wall thickening are not excluded. There is a left lower quadrant colostomy with a grossly satisfactory appearance. Unremarkable appearance of rectosigmoid stump. Heavily calcified aorta without aneurysm. No evidence for retroperitoneal adenopathy. No focal fluid collections. No evidence for abscess. Right renal stent terminates in the bladder. Question of mild diffuse bladder wall thickening. Normal liver. Normal gallbladder and extrahepatic biliary system. Normal spleen. Normal pancreas. Normal bilateral adrenal glands. Normal right kidney. Normal left kidney. Normal visualized stomach. Normal small intestine. Normal colon. The appendix is visualized and appears normal. Normal abdominal aorta. Normal inferior vena cava. Normal retroperitoneum. Normal urinary bladder. As previously mentioned on the prior study, Chakraborty catheter balloon terminates in the posterior urethra and repositioning should be performed. Stable extensive decubitus ulcer that extends down to the surface of the sacrum. Osteolysis is seen at the lower sacrum and coccyx. Consistent with chronic osteomyelitis. There are diffuse degenerative changes of the visualized lumbar spine. CT/Abdomen/Pelvis WITH Contrast IMPRESSION: Evaluation of the GI tract is limited by absence of oral contrast. Grossly satisfactory appearance of left lower quadrant ostomy. No gross evidence for obstruction or ileus. Cannot exclude segmental abnormalities of the bowel wall without oral contrast. Stable right ureteral stent. Fatty liver with hepatomegaly. Cholelithiasis. Electronically Signed: Trenton Jimenez MD at 17:45 EDT , Service support ,
--- NOTE | 2019-08-20 17:40 | CT_ITS ---
STUDY: CT ABDOMEN AND PELVIS WITHOUT CONTRAST REASON FOR EXAM: Male, 58 years old. ABDOMEN PAIN POST ENTEROTOMY TODAY,LOOKING FOR EXTRAVASATION OF CONTRAST FROM RT COLON RADIATION DOSAGE (If Supplied By Facility): CTDIvol = ( 23.89 ) mGy, DLP = ( 1420.75 ) mGycm TECHNIQUE: Transaxial images were obtained from the dome of the diaphragm to the symphysis pubis with oral contrast, and without intravenous contrast. Sagittal and coronal images were reconstructed. Individualized dose optimization techniques were used for this CT. COMPARISON: None. FINDINGS: Since prior study, patient was given oral contrast and there is moderate opacification of the GI tract. There are linear streaks of what appears to be extraluminal extravasated contrast in the right lower quadrant in and around where foci of extraluminal soft tissue air are seen. Small collections of extra luminal air in the right anterior pararenal space, and in the right lower quadrant were also present previously although not mentioned. The combination of these small streaks of probable extraluminal contrast and intraluminal air in the right lower quadrant strongly suggest perforation in the right ascending colon just distal to the ileocecal valve. These findings can be seen on axial images 138-158, and coronal images. T1-C2 3. There is no associated fluid collection/abscess. Small foci of intraluminal air also seen along the surface of the liver and in the right lateral abdominal wall. These were also present previously although not mentioned. No other changes since earlier today. CT/Abdomen/Pel W ORAL Cont Only IMPRESSION: Free air and extravasation of contrast apparently from the right colon proximal to the ileocecal valve, suggestive of perforation. Electronically Signed: Trenton Jimenez MD at 21:56 EDT , Service support ,
--- NOTE | 2019-08-20 17:53 | PN_ITS ---
Progress Note Due to the fact that the patient had an enterotomy during surgery I ordered a CT scan after surgery. CT scan did show what appeared to be few air bubbles in the mesentery of the right colon. There is not appear to be any retroperitoneal gas. There is no stranding around this area or fluid. I will order a repeat CT scan with oral contrast at this time as well. I will be able to compare at that time the amount of air in the mesentery to see if it has increased or if there is any extravasation of the oral contrast. If there is extravasation of contrast or increase in gas I would take the patient for reexploration tonight. I discussed the patient's status with the patient significant other Martha who is his power of supervisor pre wave making his medical decisions. I discussed the enterotomy with her immediately after surgery and once again at this time. I discussed the findings of the first CAT scan and the fact that we will be repeating 1 later tonight. I will call her with results either way and we will discuss possible surgery if it is needed. Jared Crystal MD Pager: [facility] [address] [place] [address], [address] [place] [address] Office: STROKE Vital Signs/Narrative: Vital Signs Pulse Resp BP BP Pulse Ox 08/20/19 15:00 121 H 22 H 100/53 L 127/72 H 98 08/20/19 14:00 125 H 28 H 129/68 H 129/68 H 93
[2019-08-20] MEDS: oxyCODONE 5 MG Tablet GT (18:42)
[2019-08-20 18:51] LABS: Bedside Glucose 105 mg/dL (70-110)
[2019-08-20] MEDS: Metoprolol Tartrate 100 MG Tablet GT (20:51)
[2019-08-20] MEDS: Atorvastatin Calcium 80 MG Tablet GT (20:51)
[2019-08-20] MEDS: dilTIAZem 30 MG Tablet 60 MG GT (20:51)
--- NOTE | 2019-08-20 21:40 | NURSING ---
Pt transported to/from CT s/p oral contrast being given on monitor w/A-line and oxygen via NC;pt lala all fairly, yelling w/pain at placing on/off CT table. paged as per request upon CT completion, wet machine operator mistakenly paged . repaged.
--- NOTE | 2019-08-20 21:50 | NURSING ---
Martha Ovalle, pt's POA, called and informed of pending OR tonight and pt's current condition; surgical consent obtained by telephone as POA has stated that just called and explained what needed to be done tonight. POA denied questions at this time.
[2019-08-20 22:15] LABS: Bedside Glucose 106 mg/dL (70-110)
--- NOTE | 2019-08-20 22:18 | PCM.PN.BLA ---
Progress Note The patient's CT resulted as positive extravasation of oral contrast in the right colon. This is indicative of perforation of the colon. I discussed this with the patient and significant other who is his power of trust and estates attorney. I discussed emergently going to surgery this evening. The surgery will begin with laparoscopy and then possibly converted to open with bowel resection of the ileocecal area. I discussed the risks of the surgery including not limited to bleeding, infection, dehiscence of incision, breakdown of anastomosis. I also discussed the possibility of a future abscess. I also discussed that the patient would likely remain intubated after surgery due to the time of night. The patient significant other understands all the risks and consents for surgery. Jared Crystal MD Pager: [facility] [address] [place] [address] [address] [place] [address] Office: STROKE Vital Signs/Narrative: Vital Signs Temp Pulse Resp BP BP BP Pulse Ox 08/20/19 20:51 115 H 126/57 H 08/20/19 20:00 97.9 F 117 H 23 H 110/54 L 126/57 H 97 08/20/19 19:48 115 H 08/20/19 19:00 107 H 30 H 108/53 L 112/61 90
--- NOTE | 2019-08-20 23:13 | NURSING ---
Pt taken off unit by OR staff
[2019-08-21] VITALS (40 sets, daily range): BP systolic 95–132; BP diastolic 48–80; PULSE 89–123; RESP 12–41; TEMP 36–37.4; O2SAT 90–100
[2019-08-21] MEDS: Bupivacaine Mpf 0.5% 30 ML VIAL (01:00)
--- NOTE | 2019-08-21 02:04 | RAD_ITS ---
STUDY: X-RAY CHEST REASON FOR EXAM: Male, 58 years old. Respiratory failure TECHNIQUE: Single AP portable view of the chest. COMPARISON: 08/18/2019 FINDINGS: Endotracheal tube tip projects 7 cm above the karoline. Nasogastric tube tip extends below the diaphragm with the tip collimated off the inferior to the film. Right upper extremity PIC catheter tip projects over the central superior vena cava. Patchy airspace infiltration at bilateral medial lung bases. No pleural effusion or pneumothorax. Normal size heart. Normal mediastinum and tony. Normal visualized pulmonary arteries. There is atherosclerotic calcification of the aortic arch . Normal visualized thoracic spine. Normal visualized ribs, clavicles, and shoulders. There is no demonstrated abnormality of the visualized soft tissue structures of the upper abdomen. RAD/Chest 1 View (Portable) IMPRESSION: 1. Bilateral medial lung base atelectasis versus infiltrate. 2. Appropriate positioning of supportive devices. Electronically Signed: Blayne Kim MD at 3:46 EDT Tel , Service support ,
--- NOTE | 2019-08-21 02:06 | PCM.OPRPT ---
Problem List (1) Cecum perforation Status: Acute Report of Operation Date of Procedure: 08/21/19 Pre-Operative Diagnosis: Iatrogenic perforation of the cecum Post-Operative Diagnosis: Same Surgery/Procedure Performed:: Laparoscopic ileocecectomy with primary anastomosis Description of Surgical Findings:: Perforation of the posterior cecum packager head: Todd Sweet Type of Anesthesia:: General Specimen's removed: Ileocecectomy Estimated Blood Loss (mL): 20 Description of Procedure: Patient was brought to the operating room and general anesthesia was induced. The stoma appliance was removed and the stoma was draped off. The abdomen was then prepped and draped in usual sterile fashion and an Ioban was placed over the abdomen. The prior midline incision was incised and the fascial suture was removed. A port was placed into the abdomen is insufflated 15 mmHg. Next under direct visualization the prior right lower quadrant incision was incised and the fascial suture was removed and a port was placed through this. A 5 mm suprapubic and a 5 mm subxiphoid port were placed under direct visualization. Next using the Enseal the right colon was medialized from its lateral attachments. The perforation of the posterior colon was evident at the level of the cecum. The terminal ileum was mobilized as was the hepatic flexure. Next the midline incision was lengthened and wound protector was placed into the abdomen. The ileocecum was delivered through the incision. The pedicle to the cecum was identified and the artery and vein were clamped and suture-ligated. Using the Enseal the mesentery to the right colon was taken down and using a VINNY stapler the terminal ileum was divided as was the mid ascending colon. Next the specimen was removed and the terminal ileum and ascending colon were approximated and the mesentery was checked to make sure that there was no twisting. There was good hemostasis of the mesentery. A corner of each staple line was removed sharply and the stapler was placed into the terminal ileum and into the colon. They were stapled together using a VINNY stapler in a [id number] functional end-to-end fashion. A crotch stitch was placed with 3-0 silk. The staple line was inspected and was hemostatic. A 60 TX stapler was placed across the enterostomy and it was closed. There is good blood flow to the entire anastomosis. This was reduced into the abdomen and the abdomen was irrigated with 3 L of saline and suctioned dry. There was no bleeding and there was good hemostasis. The prior colostomy that was placed earlier today was inspected and appeared to have good blood supply with no bleeding. The right lower quadrant 12 mm port fascia was closed with 2 interrupted 0 Vicryl sutures. The midline fascia was closed with a #1 PDS from the top and bottom in a continuous fashion meeting in the middle. The subcutaneous tissue was irrigated and suctioned dry in both of these incisions. The larger incisions were stapled closed at the skin level and the smaller port sites were closed with 4-0 Monocryl sutures and Steri-Strips and bandages. A new stoma appliance was applied over the colostomy. The patient was taken to ICU intubated in stable condition. The patient tolerated the procedure well. - Admit VTE Documentation VTE Mechan Device Prophylaxis: SCD's
[2019-08-21 03:11] LABS: VBG BASE EXCESS -1 mmol/L (-1.0-3.5); VBG Bicarbonate 24 mmol/L (22-26); VBG Oxygen Content 26 mmol/L (23-33); VBG PO2 28 mmHg (25-40); VBG SO2 52 % (50-70); VBG pCO2 41.9 mmHg (41-51); VBG pH 7.37 (7.32-7.42)
[2019-08-21 03:13] LABS: Blood Gas Specimen Type VEN
[2019-08-21 03:14] LABS: FI02 40; O2 Delivery Device Vent; PEEP 5; RR 12; SITE L BRACHIAL; Vt 500
[2019-08-21] MEDS: 0.9% Saline Lock 10 ML Syringe IV ×4 (03:17→20:46)
[2019-08-21] MEDS: fentaNYL drip 100 ML 5 MCG IV (03:19)
[2019-08-21] MEDS: Propofol 10MG/Ml 1,000 MG/100 ML Bottle 7.7 MG CONT INF (03:20)
[2019-08-21 03:22] LABS: Absolute Lymphocyte Count 0.99 X10^3/uL (0.83-4.51); Absolute Neutrophil Count 8.2 X10^3/uL (2.0-7.7); Basophil# 0.05 X10^3/uL; Basophil% 0.5 % (0-1); Eosinophil# 0.03 X10^3/uL; Eosinophils% 0.3 % (0-5); Hematocrit 31.3 % (40-54); Hemoglobin 9.3 g/dL (13.0-16.5); Lymphocyte # 0.99 X10^3/ul (4.0); Lymphocyte % 9.7 % (19-41); Mean Corp Hgb Conc 29.7 g/dL (32-36); Mean Corpuscular Hgb 29.2 pg (27.0-32.0); Mean Corpuscular Volume 98.4 fL (80-94); Mean Platelet Vol. 9.4 fl (6.2-12.0); Monocyte# 0.72 X10^3/uL; NRBC Flagged by Analyzer 0 % (0-5); Neutrophil # 8.23 X10^3/uL (2.7-7.7); Neutrophil % 80.5 % (47-70); Platelet Count 354 K/mm3 (150-450); RBC Distribution Width CV 16.4 % (11.6-14.6); Red Blood Count 3.18 M/mm3 (4.6-6.2); White Blood Count 10.2 K/mm3 (4.4-11.0)
[2019-08-21 03:40] LABS: Anion Gap 5 (5-15); BUN 26 mg/dL (7-18); BUN/Creat Ratio 31.8 RATIO (10-20); Calcium,Total 7.8 mg/dL (8.5-10.1); Chloride 112 mmol/L (98-107); Creatinine, Serum 0.82 mg/dL (0.70-1.30); EST Glomerular Filtration Rate 103 mL/min (>60); Est Glom Filt Rate - Afr Amer 125 mL/min (>60); Estimated Creatinine Clearance 96.16 ml/min; Glucose 150 mg/dL (74-106); Potassium 4.2 mmol/L (3.5-5.1); Sodium Level 143 mmol/L (136-145)
[2019-08-21 04:25] LABS: CPK Total, Creatine Kinase 177 U/L (39-308); Triglycerides 502 mg/dL
[2019-08-21 04:56] LABS: HIV - WCH Non-Reactive (Nonreactive)
[2019-08-21] MEDS: dilTIAZem 30 MG Tablet 60 MG GT ×3 (05:54→21:47)
[2019-08-21] MEDS: Menthol/Lanolin/Calamine/Znox 113 GM Tube 1 APPLIC TOPICAL ×3 (05:54→21:28)
--- NOTE | 2019-08-21 06:14 | PN_ITS ---
Subjective: The patient was seen and examined at the bedside this morning. Events from the last 24 hours have been reviewed. Yesterday, the patient was taken for laparoscopic sigmoid partial colectomy. The patient sustained a right colon enterotomy from trocar placement which was repaired intraoperatively with sutures. The patient returned to the ICU postoperatively. Last evening, a CT abdomen revealed free air and extravasation of oral contrast from the right colon proximal to the ileocecal valve. Therefore, the patient was taken back to the OR last night, where he underwent laparoscopic ileocystectomy with primary anastomoses. The patient returned back to the medical intensive care unit following surgical intervention still intubated and mechanically ventilated. The patient is currently documented to be overall net +3.3 L for the hospital admission. He is currently sedated on both propofol and fentanyl. Following my initial evaluation of the patient this morning, his sedation was discontinued and he was subsequently placed on a spontaneous breathing trial. Objective: The patient's most recent lab work, culture data and imaging studies have all been personally reviewed. General: Alert, No apparent distress, - - Remains intubated on spontaneous mode of mechanical ventilation. HEENT: Atraumatic, PERRLA, Normocephalic Oral: No Gingival or Mucosal Lesions/ Ulcerations, - - Endotracheal tube remains in place Neck: Supple, No Nodes, Trachea Midline Lungs: No rhonchi, No wheeze, No rales, Diminished Cardiovascular: Normal S1, Normal S2, Tachycardic Abdomen: Soft, Non-Distended, - - + Ostomy Extremities: No clubbing, No cyanosis, No edema Skin: - - No significant change from previous Musculoskeletal: No Muscle Wasting Lymphatic: No Cervical, Supraclavicular, or Inguinal Adenopathy Neurological: - - No focal neurological deficits. Moving extremities spontaneously. Psych/Mental Status: Flat Affect Vital Signs Temp Pulse Resp BP Pulse Ox 98 F 89 16 115/54 L 100 08/21/19 04:00 08/21/19 05:00 08/21/19 05:08 08/21/19 05:00 08/21/19 05:08 Oxygen Flow Rate (L/min) 2 Oxygen Delivery Method Mechanical Ventilator Weight: 283 lb 11.759 oz Body Mass Index (BMI) 41.8 Finger Stick Blood Glucose 191 Intake and Output for Last 24 Hours 08/19/19 08/20/19 08/21/19 23:59 23:59 23:59 Intake Total 1901.25 / 1901.25 2868.25 / 2868.25 745.78 / 745.78 Output Total 1475 / 1875 2525 / 2525 350 / 350 Balance 426.25 / 26.25 343.25 / 343.25 395.78 / 395.78 Labs (Last 48 Hours) 08/18/19 08/19/19 08/19/19 11:45 05:00 11:07 WBC RBC Hgb Hct MCV MCH MCHC RDW Std Deviation RDW Coeff of Tio Plt Count MPV Immature Gran % (Auto) Neut % (Auto) Lymph % (Auto) Deuel % (Auto) Eos % (Auto) Baso % (Auto) Absolute Neuts (auto) Absolute Lymphs (auto) Nucleated RBC % Diff Path Review Reviewed Reviewed Specimen Type Sample Site O2 % VBG pH VBG pO2 VBG O2 Sat (Calc) VBG O2 Content VBG Base Excess POC Mix VBG pCO2 Pt Tmp Respiration Rate O2 Delivery Device Tidal Volume POC PEEP Sodium Potassium Chloride Carbon Dioxide Anion Gap BUN Creatinine Estim Creat Clear Calc Est GFR (MDRD) Af Amer Est GFR (MDRD) Non-Af BUN/Creatinine Ratio Glucose Calcium Total Creatine Kinase Prealbumin Triglycerides Vancomycin Trough Random Vancomycin Hep Bs Antigen Hep Bs Antibody Hepatitis C Ab (EIA) HIV 1&2 Antibody POC Glucose 117 H 08/19/19 08/19/19 08/19/19 12:50 16:41 21:51 WBC RBC Hgb Hct MCV MCH MCHC RDW Std Deviation RDW Coeff of Tio Plt Count MPV Immature Gran % (Auto) Neut % (Auto) Lymph % (Auto) Deuel % (Auto) Eos % (Auto) Baso % (Auto) Absolute Neuts (auto) Absolute Lymphs (auto) Nucleated RBC % Diff Path Review Specimen Type Sample Site O2 % VBG pH VBG pO2 VBG O2 Sat (Calc) VBG O2 Content VBG Base Excess POC Mix VBG pCO2 Pt Tmp Respiration Rate O2 Delivery Device Tidal Volume POC PEEP Sodium Potassium Chloride Carbon Dioxide Anion Gap BUN Creatinine Estim Creat Clear Calc Est GFR (MDRD) Af Amer Est GFR (MDRD) Non-Af BUN/Creatinine Ratio Glucose Calcium Total Creatine Kinase Prealbumin Triglycerides Vancomycin Trough 24.2 H Random Vancomycin Hep Bs Antigen Hep Bs Antibody Hepatitis C Ab (EIA) HIV 1&2 Antibody POC Glucose 113 H 110 08/20/19 08/20/19 08/20/19 04:00 04:00 04:00 WBC 15.1 H RBC 3.22 L Hgb 9.4 L Hct 31.9 L MCV 99.1 H MCH 29.2 MCHC 29.5 L RDW Std Deviation 59.7 H RDW Coeff of Tio 16.5 H Plt Count 342 MPV 9.2 Immature Gran % (Auto) 1.300 H Neut % (Auto) 81.6 H Lymph % (Auto) 6.6 L Deuel % (Auto) 9.5 Eos % (Auto) 0.7 Baso % (Auto) 0.3 Absolute Neuts (auto) 12.3 H Absolute Lymphs (auto) 0.99 Nucleated RBC % 0 Diff Path Review Specimen Type Sample Site O2 % VBG pH VBG pO2 VBG O2 Sat (Calc) VBG O2 Content VBG Base Excess POC Mix VBG pCO2 Pt Tmp Respiration Rate O2 Delivery Device Tidal Volume POC PEEP Sodium 143 Potassium 4.1 Chloride 112 H Carbon Dioxide 27.0 Anion Gap 4 L BUN 24 H Creatinine 0.88 Estim Creat Clear Calc 92.62 Est GFR (MDRD) Af Amer 115 Est GFR (MDRD) Non-Af 95 BUN/Creatinine Ratio 27.4 H Glucose 115 H Calcium 8.3 L Total Creatine Kinase Prealbumin 5.1 L Triglycerides Vancomycin Trough Random Vancomycin 13.9 Hep Bs Antigen Hep Bs Antibody Hepatitis C Ab (EIA) HIV 1&2 Antibody POC Glucose 08/20/19 08/20/19 08/21/19 18:40 22:06 02:56 WBC RBC Hgb Hct MCV MCH MCHC RDW Std Deviation RDW Coeff of Tio Plt Count MPV Immature Gran % (Auto) Neut % (Auto) Lymph % (Auto) Deuel % (Auto) Eos % (Auto) Baso % (Auto) Absolute Neuts (auto) Absolute Lymphs (auto) Nucleated RBC % Diff Path Review Specimen Type MARTINEZ Sample Site L BRACHIAL O2 % 40 VBG pH 7.37 VBG pO2 28 VBG O2 Sat (Calc) 52 VBG O2 Content 26 VBG Base Excess -1 POC Mix VBG pCO2 Pt Tmp 41.9 Respiration Rate 12 O2 Delivery Device Vent Tidal Volume 500 POC PEEP 5 Sodium Potassium Chloride Carbon Dioxide Anion Gap BUN Creatinine Estim Creat Clear Calc Est GFR (MDRD) Af Amer Est GFR (MDRD) Non-Af BUN/Creatinine Ratio Glucose Calcium Total Creatine Kinase Prealbumin Triglycerides Vancomycin Trough Random Vancomycin Hep Bs Antigen Hep Bs Antibody Hepatitis C Ab (EIA) HIV 1&2 Antibody POC Glucose 105 106 08/21/19 08/21/19 08/21/19 03:05 03:05 03:05 WBC 10.2 RBC 3.18 L Hgb 9.3 L Hct 31.3 L MCV 98.4 H MCH 29.2 MCHC 29.7 L RDW Std Deviation 60.0 H RDW Coeff of Tio 16.4 H Plt Count 354 MPV 9.4 Immature Gran % (Auto) 2.000 H Neut % (Auto) 80.5 H Lymph % (Auto) 9.7 L Deuel % (Auto) 7.0 Eos % (Auto) 0.3 Baso % (Auto) 0.5 Absolute Neuts (auto) 8.2 H Absolute Lymphs (auto) 0.99 Nucleated RBC % 0 Diff Path Review Specimen Type Sample Site O2 % VBG pH VBG pO2 VBG O2 Sat (Calc) VBG O2 Content VBG Base Excess POC Mix VBG pCO2 Pt Tmp Respiration Rate O2 Delivery Device Tidal Volume POC PEEP Sodium 143 Potassium 4.2 Chloride 112 H Carbon Dioxide 26.0 Anion Gap 5 BUN 26 H Creatinine 0.82 Estim Creat Clear Calc 96.16 Est GFR (MDRD) Af Amer 125 Est GFR (MDRD) Non-Af 103 BUN/Creatinine Ratio 31.8 H Glucose 150 H Calcium 7.8 L Total Creatine Kinase Prealbumin Triglycerides Vancomycin Trough Random Vancomycin Hep Bs Antigen Pending Hep Bs Antibody Pending Hepatitis C Ab (EIA) Pending HIV 1&2 Antibody POC Glucose 08/21/19 08/21/19 03:05 03:05 WBC RBC Hgb Hct MCV MCH MCHC RDW Std Deviation RDW Coeff of Tio Plt Count MPV Immature Gran % (Auto) Neut % (Auto) Lymph % (Auto) Deuel % (Auto) Eos % (Auto) Baso % (Auto) Absolute Neuts (auto) Absolute Lymphs (auto) Nucleated RBC % Diff Path Review Specimen Type Sample Site O2 % VBG pH VBG pO2 VBG O2 Sat (Calc) VBG O2 Content VBG Base Excess POC Mix VBG pCO2 Pt Tmp Respiration Rate O2 Delivery Device Tidal Volume POC PEEP Sodium Potassium Chloride Carbon Dioxide Anion Gap BUN Creatinine Estim Creat Clear Calc Est GFR (MDRD) Af Amer Est GFR (MDRD) Non-Af BUN/Creatinine Ratio Glucose Calcium Total Creatine Kinase 177 Prealbumin Triglycerides 502 H Vancomycin Trough Random Vancomycin Hep Bs Antigen Hep Bs Antibody Hepatitis C Ab (EIA) HIV 1&2 Antibody Non-Reactive POC Glucose Microbiology 08/18/19 11:45 Blood Culture (Wb) - Pic Blood Culture - Preliminary GNR lactose production cook 08/19/19 16:06 Tissue - Sacral Gram Stain - Final 08/19/19 16:06 Tissue - Sacral Wound Culture - Preliminary Gram negative vivien Gram positive organism 08/19/19 16:06 Tissue - Sacral Gram Stain - Final 08/19/19 16:06 Tissue - Sacral Wound Culture - Preliminary GNR lactose production cook Gram negative vivien 08/18/19 11:33 Blood Culture (Wb) - Arm Right Blood Culture - Preliminary No growth in 48 hours. 08/18/19 16:10 Wound - Aerobic & Anaerobic Swabs Gram Stain - Final 08/18/19 16:10 Wound - Aerobic & Anaerobic Swabs Wound Culture - Preliminary GNR lactose production cook Gram negative vivien Gram negative vivien#2 Gram positive organism 08/18/19 12:05 Urine, Random Urine Culture - Final Presumptive C albicans 08/19/19 00:45 Stool C. difficile DNA Amplification - Final Clinical Impression(s) from Imaging Studies Abdomen/Pelvis CT 08/18/19 11:37 IMPRESSION: Hepatomegaly and fatty infiltration of the liver. Right-sided double-J stent catheter with the proximal tip in the right mid pole calyces of the right kidney and the distal tip within the urinary bladder. Small cyst in the left kidney. Diffuse bladder wall thickening. The balloon of a Chakraborty catheter is seen within the prostatic urethra. Stable large soft tissue defect overlying the sacrum. Electronically Signed: Erwin Lazo, at 13:14 EDT , Service support , Chest X-Ray 08/18/19 12:40 IMPRESSION: Status post CABG. Cardiomegaly. Electronically Signed: Erwin Lazo, at 13:09 EDT , Service support , KUB X-Ray 08/20/19 14:01 IMPRESSION: The tip of the nasogastric tube is in the distal portion of the body of the stomach. Electronically Signed: Erwin Lazo, at 14:45 EDT , Service support , Abdomen/Pelvis CT 08/20/19 15:35 IMPRESSION: Evaluation of the GI tract is limited by absence of oral contrast. Grossly satisfactory appearance of left lower quadrant ostomy. No gross evidence for obstruction or ileus. Cannot exclude segmental abnormalities of the bowel wall without oral contrast. Stable right ureteral stent. Fatty liver with hepatomegaly. Cholelithiasis. Electronically Signed: Trenton Jimenez MD at 17:45 EDT , Service support , Abdomen CT 08/20/19 17:40 IMPRESSION: Free air and extravasation of contrast apparently from the right colon proximal to the ileocecal valve, suggestive of perforation. Electronically Signed: Trenton Jimenez MD at 21:56 EDT , Service support , Chest X-Ray 08/21/19 02:04 IMPRESSION: 1. Bilateral medial lung base atelectasis versus infiltrate. 2. Appropriate positioning of supportive devices. Electronically Signed: Blayne Kim MD at 3:46 EDT Tel , Service support , Medical Necessity - Tobacco Use Smoking Status: Current every day smoker Assessment/Plan All Active Problems (Last Updated 12/07/17 @ 08:57 by Shira Conte) Cecum perforation (Acute) Multiple drug resistant Acinetobacter infection (Acute) Methicillin resistant Staphylococcus aureus infection (Acute) Severe sepsis (Acute) Sacral wound (Acute) UTI (urinary tract infection) (Acute) PAD (peripheral artery disease) (Acute) RECOMMENDATIONS: 1. Proceed with a trial of extubation this morning. 2. Once extubated, wean supplemental oxygen to maintain saturations at or above 90%. 3. Dietary advancement per general surgery recommendations. 4. Continue empiric antimicrobials per infectious diseases recommendations. 5. Avoid oversedation with opiate pain medications. 6. Continue Depakote and seizure precautions. IMPRESSIONS: 1. Severe sepsis The patient has evidence of gram-negative bacteremia, most likely secondary to hematogenous spread from his sacral wound. The patient will be continued on broad-spectrum antimicrobials per ID recommendations. He is currently hemodynamically stable without need for vasopressor support. 2. Acute respiratory failure The patient was intubated secondary to his need for general anesthesia and repeat surgical intervention yesterday. He has remained stable on the vent overnight. The patient's sedating medications will be placed on hold and a spontaneous breathing trial will be completed. If the patient passes his SBT, will proceed with extubation. 3. Metabolic encephalopathy Continue current supportive measures as noted above. The patient has not demonstrated any active seizure activity. I do suspect that his residual lethargy is likely secondary to opiate pain medication utilization. 4. Coronary artery disease status post CABG/atrial fibrillation/unspecified s eizure disorder/diabetes mellitus/GERD Complicates care, management, recovery and prognosis. Continue home medications as indicated. Physical therapy to evaluate the patient once he has been extubated. TIME: 38 minutes of critical care time, independent of procedures, was spent addressing the patient's severe sepsis, acute respiratory failure, metabolic enc ephalopathy, review of all data and collaboration with the care team. ([id number]) [id number] Critical care first hour
--- NOTE | 2019-08-21 07:35 | PN_ITS ---
Patient Problems: Active and Suspected Problems (Last Updated 12/07/17 @ 08:57 by Shira Conte) Cecum perforation (Acute) Multiple drug resistant Acinetobacter infection (Acute) Methicillin resistant Staphylococcus aureus infection (Acute) Severe sepsis (Acute) Sacral wound (Acute) UTI (urinary tract infection) (Acute) Reason for Visit: Sepsis secondary to infected stage IV sacral decubitus Subjective: Patient underwent diverting colostomy the day prior. Procedure was apparently complicated by trocar injury to the posterior cecum leading to patient going back to the OR with laparoscopic colectomy with primary reanastomosis done. Patient was left on the vent following the procedure. Objective: GENERAL: awake on the vent HEENT: Atraumatic; EYES; Anicteric, Normal Conjunctiva NECK; supple, normal thyroid, RESPIRATORY: Diminished to auscultation CARDIOVASCULAR: Regular S1 S2, GI: soft, normoactive bowel sounds, surgical incision is dry and intact : No Renal angle tenderness; EXTREMITIES: No edema, no clubbing, MUSCULOSKELETAL: no muscle waisting NEURO: Awake; no lateralizing signs. SKIN: Stage IV sacral decubitus PSYCH; Flat affect Vitals/I&O's: Vital Signs Temp Pulse Resp BP Pulse Ox 98 F 94 16 121/59 H 100 08/21/19 04:00 08/21/19 07:01 08/21/19 07:01 08/21/19 06:00 08/21/19 07:01 Oxygen Flow Rate (L/min) 2 Oxygen Delivery Method Mechanical Ventilator Weight: 128.7 kg Body Mass Index (BMI) 41.8 Finger Stick Blood Glucose 191 Intake and Output for Last 24 Hours 08/19/19 08/20/19 08/21/19 23:59 23:59 23:59 Intake Total 1901.25 / 1901.25 2868.25 / 2868.25 813.41 / 813.41 Output Total 1475 / 1875 2525 / 2525 650 / 650 Balance 426.25 / 26.25 343.25 / 343.25 163.41 / 163.41 Microbiology Past 72 Hours 08/18/19 11:45 Blood Culture (Wb) - [facility] Blood Culture - Preliminary GNR lactose electrical assistant 08/19/19 16:06 Tissue - Sacral Gram Stain - Final 08/19/19 16:06 Tissue - Sacral Wound Culture - Preliminary Gram negative vivien Gram positive organism 08/19/19 16:06 Tissue - Sacral Gram Stain - Final 08/19/19 16:06 Tissue - Sacral Wound Culture - Preliminary GNR lactose electrical assistant Gram negative vivien 08/18/19 11:33 Blood Culture (Wb) - Arm Right Blood Culture - Preliminary No growth in 48 hours. 08/18/19 16:10 Wound - Aerobic & Anaerobic Swabs Gram Stain - Final 08/18/19 16:10 Wound - Aerobic & Anaerobic Swabs Wound Culture - Preliminary GNR lactose electrical assistant Gram negative vivien Gram negative vivien#2 Gram positive organism 08/18/19 12:05 Urine, Random Urine Culture - Final Presumptive C albicans 08/19/19 00:45 Stool C. difficile DNA Amplification - Final Laboratory Results 08/20/19 18:40: POC Glucose 105 08/20/19 22:06: POC Glucose 106 08/21/19 02:56: Specimen Type MARTINEZ, Sample Site L BRACHIAL, O2 % 40, VBG pH 7.37, VBG pO2 28, VBG O2 Sat (Calc) 52, VBG O2 Content 26, VBG Base Excess -1, POC Mix VBG pCO2 Pt Tmp 41.9, Respiration Rate 12, O2 Delivery Device Vent, Tidal Volume 500, POC PEEP 5 08/21/19 03:05: WBC 10.2, RBC 3.18 L, Hgb 9.3 L, Hct 31.3 L, MCV 98.4 H, MCH 29.2, MCHC 29.7 L, RDW Std Deviation 60.0 H, RDW Coeff of Tio 16.4 H, Plt Count 354, MPV 9.4, Immature Gran % (Auto) 2.000 H, Neut % (Auto) 80.5 H, Lymph % (Auto) 9.7 L, [place] % (Auto) 7.0, Eos % (Auto) 0.3, Baso % (Auto) 0.5, Absolute Neuts (auto) 8.2 H, Absolute Lymphs (auto) 0.99, Nucleated RBC % 0 08/21/19 03:05: Sodium 143, Potassium 4.2, Chloride 112 H, Carbon Dioxide 26.0, Anion Gap 5, BUN 26 H, Creatinine 0.82, Estim Creat Clear Calc 96.16, Est GFR (MDRD) Af Amer 125, Est GFR (MDRD) Non-Af 103, BUN/Creatinine Ratio 31.8 H, Glucose 150 H, Calcium 7.8 L 08/21/19 03:05: Hep Bs Antigen Pending, Hep Bs Antibody Pending, Hepatitis C Ab (EIA) Pending 08/21/19 03:05: HIV 1&2 Antibody Non-Reactive 08/21/19 03:05: Total Creatine Kinase 177, Triglycerides 502 H Current Medications Acetaminophen (Tylenol Liquid) 650 mg GT Q6H PRN PRN PRN Reason: FEVER Aspirin (Aspirin, Baby) 81 mg GT DAILY [facility] Atorvastatin Calcium (Lipitor) 80 mg GT QHS [facility] Last Admin: 08/20/19 20:51 Dose: 80 mg Documented by: Calamine/Phenol (Calmoseptine Ointment) 1 applic TOPICAL TID [facility]; Protocol Last Admin: 08/21/19 05:54 Dose: 1 applicatio Documented by: Chlorhexidine Gluconate () 15 ml PO BID [facility] Dextrose (D50w Syringe) 0 gm IV X1 PRN; Protocol PRN Reason: Hypoglycemia Diazepam (Valium) 5 mg GT Q6H PRN PRN PRN Reason: SPASMS Diltiazem HCl (Cardizem) 60 mg GT Q8 [facility] Last Admin: 08/21/19 05:54 Dose: 60 mg Documented by: Docusate Sodium (Colace Syrup) 100 mg GT BID [facility] Last Admin: 08/20/19 20:54 Dose: Not Given Documented by: Famotidine (Pepcid) 20 mg GT DAILY [facility] Fenofibrate (Tricor) 145 mg GT DAILY [facility] Folic Acid (Folic Acid) 1 mg GT DAILY [facility] Glucagon () 1 mg IM .X1 PRN PRN Reason: Hypoglycemia Vancomycin IV Pharmacy to Dose (1 ea/ Sodium Chloride) 500 mls @ 250 mls/hr IV X1 PRN; Protocol PRN Reason: Rx to Dose Meropenem 1 gm/ Sodium (Chloride) 120 mls @ 33 mls/hr IV Q8 [facility] Last Admin: 08/21/19 05:54 Dose: 33 mls/hr Documented by: Sodium Chloride () 250 mls @ 15 mls/hr IV .[id number] PRN PRN Reason: Saline Flush Last Infusion: 08/20/19 05:01 Dose: 0 mls/hr Documented by: Sodium Chloride () 250 mls @ 15 mls/hr IV .[id number] PRN PRN Reason: Additional IVPB Infusion Vancomycin HCl 1,250 mg/ (Sodium Chloride) 275 mls @ 167 mls/hr IV Q8H [facility] Last Infusion: 08/21/19 05:10 Dose: Infused Documented by: Eravacycline 125 mg/ Sodium (Chloride) 262.5 mls @ 262.5 mls/hr IV Q12 [facility] Last Infusion: 08/21/19 04:28 Dose: Infused Documented by: Valproic Acid 750 mg/ Dextrose 57.5 mls @ 50 mls/hr IV Q8 [facility] Last Infusion: 08/21/19 07:07 Dose: Infused Documented by: Propofol (Diprivan) 1,000 mg in 100 mls @ 7.68 mls/hr CONT INF .Q12H [facility]; Protocol Last Titration: 08/21/19 06:40 Dose: 0 mcg/kg/min, 0 mls/hr Documented by: Fentanyl () 100 mls @ 5 mls/hr IV .Q20H [facility]; Protocol Last Titration: 08/21/19 06:40 Dose: 0 mcg/hr, 0 mls/hr Documented by: Insulin Human Lispro (Humalog Kwikpen (Bkc)) 0 unit SC ACHS [facility]; Protocol Last Admin: 08/20/19 22:07 Dose: Not Given Documented by: Lactobacillus Acidophilus (Acidophilus) 2 tablet GT DAILY [facility] Lansoprazole (Lansoprazole) 15 mg GT DAILY [facility] Metoprolol Tartrate (Lopressor (Beta Dana)) 100 mg GT BID [facility] Last Admin: 08/20/19 20:51 Dose: 100 mg Documented by: Morphine Sulfate () 2 mg IV Q3H PRN PRN PRN Reason: Pain Score 6-10/10 Last Admin: 08/20/19 09:40 Dose: 2 mg Documented by: Nutritional Formula (Mike - Wallace Flavor) 1 packet PO BID [facility] Last Admin: 08/20/19 20:52 Dose: 1 packet Documented by: Oxycodone HCl (Oxyir) 5 mg GT Q4H PRN PRN PRN Reason: Pain Score 4-5/10 Last Admin: 08/20/19 18:42 Dose: 5 mg Documented by: Polyethylene Glycol (Miralax) 17 gm GT DAILY [facility] Promethazine HCl (Phenergan Tablet) 25 mg GT Q4H PRN PRN PRN Reason: NAUSEA/VOMITING Sodium Chloride () 10 - 40 ml IV UD PRN PRN Reason: SALINE FLUSH Last Admin: 08/21/19 03:24 Dose: 10 ml Documented by: Sodium Hypochlorite (Dakins Solution 0.25% (1/2 Strength)) 1 applic TOPICAL BID [facility]; Protocol Last Admin: 08/21/19 06:36 Dose: Not Given Documented by: STROKE Vital Signs/Narrative: Vital Signs Temp Pulse Resp BP BP Pulse Ox 08/21/19 07:01 94 16 100 08/21/19 06:00 95 18 120/51 L 121/59 H 96 08/21/19 05:08 16 100 08/21/19 05:00 89 17 121/51 H 115/54 L 97 08/21/19 04:00 98 F 92 17 113/54 L 93 Medical Necessity - Tobacco Use Smoking Status: Current every day smoker Assessment/Plan All Active Problems (Last Updated 12/07/17 @ 08:57 by Shira Conte) Cecum perforation (Acute) Multiple drug resistant Acinetobacter infection (Acute) Methicillin resistant Staphylococcus aureus infection (Acute) Severe sepsis (Acute) Sacral wound (Acute) UTI (urinary tract infection) (Acute) PAD (peripheral artery disease) (Acute) Patient is a 58-year-old male admitted with altered mental status secondary to infected decubitus 1. Severe sepsis secondary to decubitus ulcer and UTI -Due to combination of UTI and infected decubitus ulcer. Admitted to the intensive care unit where patient is currently being managed per protocol 2. Infected stage IV sacral decubitus ulcer ?Patient presented with severe sepsis admitted to the intensive care unit started on broad-spectrum antibiotic therapy as well as IV fluid resuscitation. Consult was placed Dr. Nguyễn with plastic surgery as well as Dr. Crystal with general surgery for diverting colostomy creation -08/20/2019 patient underwent excision worsening infected sacral pressure sore from stool contamination, Stage IV, with partial ostectomy for osteomyelitis on 08/19/[address] Nguyễn. Patient is scheduled to undergo diverting colostomy creation by Dr. Crystal this afternoon -08/21/2019. Patient diverting colostomy procedure was complicated by injury to the cecum leading to patient undergoing further surgical repair 3. Status post laparoscopic ileocecectomy with primary anastomosis as a result of iatrogenic perforation of the cecum - Patient underwent diverting colostomy on 08/20/2019. Procedure was apparently complicated by trocar injury to the posterior cecum leading to patient going back to the OR with laparoscopic colectomy with primary reanastomosis done. Patient was left on the vent following the procedure. 4. Acute respiratory failure ?Following patient surgical intervention currently on the vent vent management deferred to Dr. Campbell with intensive care 5. Acute Cystitis ?Secondary to presence of indwelling Chakraborty catheter. On antibiotics cultures sent 6. Acute metabolic encephalopathy ?Due to combination of UTI and infected decubitus ulcer. Admitted to the intensive care unit where patient is currently being managed per protocol 7. Seizure disorder ?symptoms controlled on valproic acid 8. Hypertension - Blood pressure controlled, home medications continued with dose adjustment as needed 9. Dyslipidemia -Patient is on statin therapy, continued at home dose 10. Diabetes mellitus type II - Controlled metformin held on admission, placed on Accu-Cheks a.c. and at bedtime and covered with sliding scale insulin 11. Coronary artery disease -with previous CABG 12. Paroxysmal A. fib ?Rate controlled on beta-blockers and Cardizem in addition to Lovenox 13. Morbid obesity with BMI of 41.4 14. DVT prophylaxis ?Lovenox Inpatient E&M: [id number] [facility] Hosp L3
[2019-08-21 08:15] LABS: Bedside Glucose 127 mg/dL (70-110)
--- NOTE | 2019-08-21 09:18 | PN.SURG_ITS ---
Patient Problems: Active and Suspected Problems (Last Updated 12/07/17 @ 08:57 by Shira Conte) Cecum perforation (Acute) Multiple drug resistant Acinetobacter infection (Acute) Methicillin resistant Staphylococcus aureus infection (Acute) Severe sepsis (Acute) Sacral wound (Acute) UTI (urinary tract infection) (Acute) Subjective: Patient is stable this morning. He remains intubated but he is responsive. - Physical Exam Vitals/I&O's: Vital Signs Temp Pulse Resp BP Pulse Ox 99.4 F H 118 H 22 H 105/48 L 90 08/21/19 08:00 08/21/19 09:00 08/21/19 09:00 08/21/19 09:00 08/21/19 09:00 Oxygen Flow Rate (L/min) 2 Oxygen Delivery Method CPAP Weight: 283 lb 11.759 oz Body Mass Index (BMI) 41.8 Finger Stick Blood Glucose 191 Intake and Output for Last 24 Hours 08/19/19 08/20/19 08/21/19 23:59 23:59 23:59 Intake Total 1901.25 / 1901.25 2868.25 / 2868.25 813.41 / 813.41 Output Total 1475 / 1875 2525 / 2525 650 / 650 Balance 426.25 / 26.25 343.25 / 343.25 163.41 / 163.41 General: Alert, No apparent distress Neck: No JVD Lungs: - - Intubated and sedated Abdomen: Soft, Non-Distended Musculoskeletal: No Muscle Wasting Microbiology Past 72 Hours 08/18/19 11:45 Blood Culture (Wb) - Pic Blood Culture - Preliminary 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 08/19/19 16:06 Tissue - Sacral Gram Stain - Final 08/19/19 16:06 Tissue - Sacral Wound Culture - Preliminary Gram negative vivien Gram positive organism 08/19/19 16:06 Tissue - Sacral Gram Stain - Final 08/19/19 16:06 Tissue - Sacral Wound Culture - Preliminary GNR lactose beef cattle grazier Gram negative vivien 08/18/19 11:33 Blood Culture (Wb) - Arm Right Blood Culture - Preliminary No growth in 48 hours. 08/18/19 12:05 Urine, Random Urine Culture - Final Presumptive C albicans 08/19/19 00:45 Stool C. difficile DNA Amplification - Final Laboratory Results 08/20/19 18:40: POC Glucose 105 08/20/19 22:06: POC Glucose 106 08/21/19 02:56: Specimen Type MARTINEZ, Sample Site L BRACHIAL, O2 % 40, VBG pH 7.37, VBG pO2 28, VBG O2 Sat (Calc) 52, VBG O2 Content 26, VBG Base Excess -1, POC Mix VBG pCO2 Pt Tmp 41.9, Respiration Rate 12, O2 Delivery Device Vent, Tidal Volume 500, POC PEEP 5 08/21/19 03:05: WBC 10.2, RBC 3.18 L, Hgb 9.3 L, Hct 31.3 L, MCV 98.4 H, MCH 29.2, MCHC 29.7 L, RDW Std Deviation 60.0 H, RDW Coeff of Tio 16.4 H, Plt Count 354, MPV 9.4, Immature Gran % (Auto) 2.000 H, Neut % (Auto) 80.5 H, Lymph % (Auto) 9.7 L, [place] % (Auto) 7.0, Eos % (Auto) 0.3, Baso % (Auto) 0.5, Absolute Neuts (auto) 8.2 H, Absolute Lymphs (auto) 0.99, Nucleated RBC % 0 08/21/19 03:05: Sodium 143, Potassium 4.2, Chloride 112 H, Carbon Dioxide 26.0, Anion Gap 5, BUN 26 H, Creatinine 0.82, Estim Creat Clear Calc 96.16, Est GFR (MDRD) Af Amer 125, Est GFR (MDRD) Non-Af 103, BUN/Creatinine Ratio 31.8 H, Glucose 150 H, Calcium 7.8 L 08/21/19 03:05: Hep Bs Antigen Pending, Hep Bs Antibody Pending, Hepatitis C Ab (EIA) Pending 08/21/19 03:05: HIV 1&2 Antibody Non-Reactive 08/21/19 03:05: Total Creatine Kinase 177, Triglycerides 502 H 08/21/19 08:10: POC Glucose 127 H 08/21/19 08:30: Vancomycin Trough Pending Current Medications Acetaminophen (Tylenol Liquid) 650 mg GT Q6H PRN PRN PRN Reason: FEVER Aspirin (Aspirin, Baby) 81 mg GT DAILY [facility] Atorvastatin Calcium (Lipitor) 80 mg GT QHS [facility] Last Admin: 08/20/19 20:51 Dose: 80 mg Documented by: Calamine/Phenol (Calmoseptine Ointment) 1 applic TOPICAL TID [facility]; Protocol Last Admin: 08/21/19 05:54 Dose: 1 applicatio Documented by: Chlorhexidine Gluconate () 15 ml PO BID [facility] Dextrose (D50w Syringe) 0 gm IV X1 PRN; Protocol PRN Reason: Hypoglycemia Diazepam (Valium) 5 mg GT Q6H PRN PRN PRN Reason: SPASMS Diltiazem HCl (Cardizem) 60 mg GT Q8 [facility] Last Admin: 08/21/19 05:54 Dose: 60 mg Documented by: Docusate Sodium (Colace Syrup) 100 mg GT BID [facility] Last Admin: 08/20/19 20:54 Dose: Not Given Documented by: Famotidine (Pepcid) 20 mg GT DAILY [facility] Fenofibrate (Tricor) 145 mg GT DAILY [facility] Folic Acid (Folic Acid) 1 mg GT DAILY [facility] Glucagon () 1 mg IM .X1 PRN PRN Reason: Hypoglycemia Meropenem 1 gm/ Sodium (Chloride) 120 mls @ 33 mls/hr IV Q8 [facility] Last Admin: 08/21/19 05:54 Dose: 33 mls/hr Documented by: Sodium Chloride () 250 mls @ 15 mls/hr IV .[id number] PRN PRN Reason: Saline Flush Last Infusion: 08/20/19 05:01 Dose: 0 mls/hr Documented by: Sodium Chloride () 250 mls @ 15 mls/hr IV .[id number] PRN PRN Reason: Additional IVPB Infusion Eravacycline 125 mg/ Sodium (Chloride) 262.5 mls @ 262.5 mls/hr IV Q12 [facility] Last Infusion: 08/21/19 04:28 Dose: Infused Documented by: Valproic Acid 750 mg/ Dextrose 57.5 mls @ 50 mls/hr IV Q8 [facility] Last Infusion: 08/21/19 07:07 Dose: Infused Documented by: Propofol (Diprivan) 1,000 mg in 100 mls @ 7.68 mls/hr CONT INF .Q12H [facility]; Protocol Last Titration: 08/21/19 06:40 Dose: 0 mcg/kg/min, 0 mls/hr Documented by: Fentanyl () 100 mls @ 5 mls/hr IV .Q20H [facility]; Protocol Last Titration: 08/21/19 06:40 Dose: 0 mcg/hr, 0 mls/hr Documented by: Insulin Human Lispro (Humalog Kwikpen (Bkc)) 0 unit SC ACHS [facility]; Protocol Last Admin: 08/21/19 08:22 Dose: Not Given Documented by: Lactobacillus Acidophilus (Acidophilus) 2 tablet GT DAILY [facility] Lansoprazole (Lansoprazole) 15 mg GT DAILY [facility] Linezolid (Zyvox) 600 mg PO BID [facility] Metoprolol Tartrate (Lopressor (Beta Dana)) 100 mg GT BID [facility] Last Admin: 08/20/19 20:51 Dose: 100 mg Documented by: Morphine Sulfate () 2 mg IV Q3H PRN PRN PRN Reason: Pain Score 6-10/10 Last Admin: 08/20/19 09:40 Dose: 2 mg Documented by: Nutritional Formula (Mike - [place] Flavor) 1 packet PO BID [facility] Last Admin: 08/20/19 20:52 Dose: 1 packet Documented by: Oxycodone HCl (Oxyir) 5 mg GT Q4H PRN PRN PRN Reason: Pain Score 4-5/10 Last Admin: 08/20/19 18:42 Dose: 5 mg Documented by: Polyethylene Glycol (Miralax) 17 gm GT DAILY [facility] Promethazine HCl (Phenergan Tablet) 25 mg GT Q4H PRN PRN PRN Reason: NAUSEA/VOMITING Sodium Chloride () 10 - 40 ml IV UD PRN PRN Reason: SALINE FLUSH Last Admin: 08/21/19 03:24 Dose: 10 ml Documented by: Sodium Hypochlorite (Dakins Solution 0.25% (1/2 Strength)) 1 applic TOPICAL BID [facility]; Protocol Last Admin: 08/21/19 06:36 Dose: Not Given Documented by: Medical Necessity - Tobacco Use Smoking Status: Current every day smoker Assessment/Plan All Active Problems (Last Updated 12/07/17 @ 08:57 by Shira Conte) Cecum perforation (Acute) Multiple drug resistant Acinetobacter infection (Acute) Methicillin resistant Staphylococcus aureus infection (Acute) Severe sepsis (Acute) Sacral wound (Acute) UTI (urinary tract infection) (Acute) PAD (peripheral artery disease) (Acute) 58-year-old male status post ileocecectomy for trocar enterotomy during diverting colostomy 1. Patient seems to doing well this morning. He should be extubated this morning. His abdomen is soft and nondistended and a stoma is pink. He underwent laparoscopic ileocecectomy overnight due to trocar injury on the post erior cecum. The abdomen was washed out and he did have a resection with primary anastomosis. Continue NG to suction for 24 more hours with antibiotics. If he is starting to pass flatus through the stoma tomorrow I would consider removing the NG and starting clear liquids. I did discuss the patient's current status with his significant other this morning. Jared Crystal MD Pager: [facility] [address] [place] [address] [place] [address] Office:
[2019-08-21 09:39] LABS: Vancomycin, Trough Level 26.2 ug/mL (5.0-15.0)
--- NOTE | 2019-08-21 10:03 | PN.ID_ITS ---
Patient Problems: Active and Suspected Problems (Last Updated 12/07/17 @ 08:57 by Shira Conte) Cecum perforation (Acute) Multiple drug resistant Acinetobacter infection (Acute) Methicillin resistant Staphylococcus aureus infection (Acute) Severe sepsis (Acute) Sacral wound (Acute) UTI (urinary tract infection) (Acute) Subjective: On vent, no fever - Physical Exam Vitals/I&O's: Vital Signs Temp Pulse Resp BP Pulse Ox 99.4 F H 118 H 22 H 105/48 L 90 08/21/19 08:00 08/21/19 09:00 08/21/19 09:00 08/21/19 09:00 08/21/19 09:00 Oxygen Flow Rate (L/min) 2 Oxygen Delivery Method CPAP Weight: 128.7 kg Body Mass Index (BMI) 41.8 Finger Stick Blood Glucose 191 Intake and Output for Last 24 Hours 08/19/19 08/20/19 08/21/19 23:59 23:59 23:59 Intake Total 1901.25 / 1901.25 2868.25 / 2868.25 813.41 / 813.41 Output Total 1475 / 1875 2525 / 2525 650 / 650 Balance 426.25 / 26.25 343.25 / 343.25 163.41 / 163.41 General: Lethargic Lungs: Clear to auscultation, Normal air movement Cardiovascular: Irregular Rate, Tachycardic Abdomen: Soft, Non Tender, Non-Distended Skin: Ulcer/ Wound Microbiology Past 72 Hours 08/19/19 16:06 Tissue - Sacral Gram Stain - Final 08/19/19 16:06 Tissue - Sacral Wound Culture - Preliminary Gram negative vivien Gram negative vivien#2 GPC Poss Enterococcus sp 08/19/19 16:06 Tissue - Sacral Gram Stain - Final 08/19/19 16:06 Tissue - Sacral Wound Culture - Preliminary GNR lactose awning erector Gram negative vivien Gram negative vivien#2 Staphylococcus aureus 08/18/19 11:45 Blood Culture (Wb) - Pic Blood Culture - Preliminary GNR lactose awning erector GNR lactose awning erector#2 Coag Negative Staph 08/18/19 16:10 Wound - Aerobic & Anaerobic Swabs Gram Stain - Final 08/18/19 16:10 Wound - Aerobic & Anaerobic Swabs Wound Culture - Preliminary Escherichia coli Proteus mirabilis#2 Proteus mirabilis Enterococcus faecium 08/18/19 16:10 Wound - Aerobic & Anaerobic Swabs Anaerobic Culture - Preliminary Checking for anaerobes, further studies to follow. 08/18/19 11:33 Blood Culture (Wb) - Arm Right Blood Culture - Preliminary No growth in 48 hours. 08/18/19 12:05 Urine, Random Urine Culture - Final Presumptive C albicans 08/19/19 00:45 Stool C. difficile DNA Amplification - Final Laboratory Results 08/20/19 18:40: POC Glucose 105 08/20/19 22:06: POC Glucose 106 08/21/19 02:56: Specimen Type MARTINEZ, Sample Site L BRACHIAL, O2 % 40, VBG pH 7.37, VBG pO2 28, VBG O2 Sat (Calc) 52, VBG O2 Content 26, VBG Base Excess -1, POC Mix VBG pCO2 Pt Tmp 41.9, Respiration Rate 12, O2 Delivery Device Vent, Tidal Volume 500, POC PEEP 5 08/21/19 03:05: WBC 10.2, RBC 3.18 L, Hgb 9.3 L, Hct 31.3 L, MCV 98.4 H, MCH 29.2, MCHC 29.7 L, RDW Std Deviation 60.0 H, RDW Coeff of Tio 16.4 H, Plt Count 354, MPV 9.4, Immature Gran % (Auto) 2.000 H, Neut % (Auto) 80.5 H, Lymph % (Auto) 9.7 L, Ness % (Auto) 7.0, Eos % (Auto) 0.3, Baso % (Auto) 0.5, Absolute Neuts (auto) 8.2 H, Absolute Lymphs (auto) 0.99, Nucleated RBC % 0 08/21/19 03:05: Sodium 143, Potassium 4.2, Chloride 112 H, Carbon Dioxide 26.0, Anion Gap 5, BUN 26 H, Creatinine 0.82, Estim Creat Clear Calc 96.16, Est GFR (MDRD) Af Amer 125, Est GFR (MDRD) Non-Af 103, BUN/Creatinine Ratio 31.8 H, Glucose 150 H, Calcium 7.8 L 08/21/19 03:05: Hep Bs Antigen Pending, Hep Bs Antibody Pending, Hepatitis C Ab (EIA) Pending 08/21/19 03:05: HIV 1&2 Antibody Non-Reactive 08/21/19 03:05: Total Creatine Kinase 177, Triglycerides 502 H 08/21/19 08:10: POC Glucose 127 H 08/21/19 08:30: Vancomycin Trough 26.2 H Current Medications Acetaminophen (Tylenol Liquid) 650 mg GT Q6H PRN PRN PRN Reason: FEVER Aspirin (Aspirin, Baby) 81 mg GT DAILY [facility] Atorvastatin Calcium (Lipitor) 80 mg GT QHS [facility] Last Admin: 08/20/19 20:51 Dose: 80 mg Documented by: Calamine/Phenol (Calmoseptine Ointment) 1 applic TOPICAL TID [facility]; Protocol Last Admin: 08/21/19 05:54 Dose: 1 applicatio Documented by: Chlorhexidine Gluconate () 15 ml PO BID [facility] Dextrose (D50w Syringe) 0 gm IV X1 PRN; Protocol PRN Reason: Hypoglycemia Diazepam (Valium) 5 mg GT Q6H PRN PRN PRN Reason: SPASMS Diltiazem HCl (Cardizem) 60 mg GT Q8 [facility] Last Admin: 08/21/19 05:54 Dose: 60 mg Documented by: Docusate Sodium (Colace Syrup) 100 mg GT BID [facility] Last Admin: 08/20/19 20:54 Dose: Not Given Documented by: Famotidine (Pepcid) 20 mg GT DAILY [facility] Fenofibrate (Tricor) 145 mg GT DAILY [facility] Folic Acid (Folic Acid) 1 mg GT DAILY [facility] Glucagon () 1 mg IM .X1 PRN PRN Reason: Hypoglycemia Meropenem 1 gm/ Sodium (Chloride) 120 mls @ 33 mls/hr IV Q8 [facility] Last Admin: 08/21/19 05:54 Dose: 33 mls/hr Documented by: Sodium Chloride () 250 mls @ 15 mls/hr IV .[id number] PRN PRN Reason: Saline Flush Last Infusion: 08/20/19 05:01 Dose: 0 mls/hr Documented by: Sodium Chloride () 250 mls @ 15 mls/hr IV .[id number] PRN PRN Reason: Additional IVPB Infusion Eravacycline 125 mg/ Sodium (Chloride) 262.5 mls @ 262.5 mls/hr IV Q12 DAVE Last Infusion: 08/21/19 04:28 Dose: Infused Documented by: Valproic Acid 750 mg/ Dextrose 57.5 mls @ 50 mls/hr IV Q8 [facility] Last Infusion: 08/21/19 07:07 Dose: Infused Documented by: Propofol (Diprivan) 1,000 mg in 100 mls @ 7.68 mls/hr CONT INF .Q12H [facility]; Protocol Last Titration: 08/21/19 06:40 Dose: 0 mcg/kg/min, 0 mls/hr Documented by: Fentanyl () 100 mls @ 5 mls/hr IV .Q20H [facility]; Protocol Last Titration: 08/21/19 06:40 Dose: 0 mcg/hr, 0 mls/hr Documented by: Insulin Human Lispro (Humalog Kwikpen (Bkc)) 0 unit SC ACHS [facility]; Protocol Last Admin: 08/21/19 08:22 Dose: Not Given Documented by: Lactobacillus Acidophilus (Acidophilus) 2 tablet GT DAILY [facility] Lansoprazole (Lansoprazole) 15 mg GT DAILY [facility] Linezolid (Zyvox) 600 mg PO BID [facility] Metoprolol Tartrate (Lopressor (Beta Dana)) 100 mg GT BID [facility] Last Admin: 08/20/19 20:51 Dose: 100 mg Documented by: Morphine Sulfate () 2 mg IV Q3H PRN PRN PRN Reason: Pain Score 6-10/10 Last Admin: 08/20/19 09:40 Dose: 2 mg Documented by: Nutritional Formula (Mike - [place] Flavor) 1 packet PO BID [facility] Last Admin: 08/20/19 20:52 Dose: 1 packet Documented by: Oxycodone HCl (Oxyir) 5 mg GT Q4H PRN PRN PRN Reason: Pain Score 4-5/10 Last Admin: 08/20/19 18:42 Dose: 5 mg Documented by: Polyethylene Glycol (Miralax) 17 gm GT DAILY [facility] Promethazine HCl (Phenergan Tablet) 25 mg GT Q4H PRN PRN PRN Reason: NAUSEA/VOMITING Sodium Chloride () 10 - 40 ml IV UD PRN PRN Reason: SALINE FLUSH Last Admin: 08/21/19 03:24 Dose: 10 ml Documented by: Sodium Hypochlorite (Dakins Solution 0.25% (1/2 Strength)) 1 applic TOPICAL BID [facility]; Protocol Last Admin: 08/21/19 06:36 Dose: Not Given Documented by: Medical Necessity - Tobacco Use Smoking Status: Current every day smoker Route of nutrition/ use of supplements: [] Nutritional Intake: [] IV Site: [] Chakraborty Catheter: [] - Assessment/Plan Antibiotics: [] Assessment/Plan: [] Active and Suspected Problems (Last Updated 12/07/17 @ 08:57 by Shira Conte) Severe sepsis (Acute) Sacral wound (Acute) UTI (urinary tract infection) (Acute) severe sepsis with GNR bacteremia, 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 OR 08/[address] Nguyễn for I&D. OR 08/[address] Crystal for diverting ostomy. On vanc/gudelia/eravacycline. Wbc much improved. Wound cx with possible VRE, will change vanc to linezolid. Will follow
--- NOTE | 2019-08-21 10:10 | CASEMGMT ---
LUNA faxed updates to [id number]. LUNA called Kirstin at [id number] and let her know updates were sent. LUNA also asked if they had a copy of a Healthcare Power of Petroleum Laboratory Technician for patient. She said she would check and if they do she will fax it to LUNA. Amna ZARATE MSW
[2019-08-21] MEDS: DAKIN'S SOL HALF STRENGTH (=0.25%) 1 APPLIC TOPICAL ×2 (10:35→21:29)
[2019-08-21] MEDS: Folic Acid 1 MG Tablet GT (10:38)
[2019-08-21] MEDS: Aspirin 81 MG TAB.CHEW GT (10:38)
[2019-08-21] MEDS: Famotidine 20 MG Tablet GT (10:41)
[2019-08-21] MEDS: Metoprolol Tartrate 100 MG Tablet GT ×2 (10:43→21:47)
[2019-08-21] MEDS: Lansoprazole 15 MG Capsule.DR GT (10:43)
[2019-08-21] MEDS: Linezolid 600 MG Tablet PO ×2 (10:47→21:47)
[2019-08-21] MEDS: Morphine 2 MG/ML Syringe IV (10:51)
[2019-08-21] MEDS: oxyCODONE 5 MG Tablet GT (12:43)
[2019-08-21 17:40] LABS: Bedside Glucose 131 mg/dL (70-110)
[2019-08-21] MEDS: Morphine 2 MG/ML Syringe 1 MG IV (20:45)
[2019-08-21] MEDS: Atorvastatin Calcium 80 MG Tablet GT (21:47)
[2019-08-21] MEDS: Docusate Sodium 100 MG/10 ML UDC GT (21:47)
[2019-08-21 22:16] LABS: Bedside Glucose 127 mg/dL (70-110)
[2019-08-22] VITALS (28 sets, daily range): BP systolic 92–142; BP diastolic 44–86; PULSE 80–109; RESP 13–35; TEMP 36–38.4; O2SAT 92–100; BMI 41.8
[2019-08-22] MEDS: Morphine 2 MG/ML Syringe 1 MG IV ×3 (03:20→20:06)
[2019-08-22] MEDS: 0.9% Saline Lock 10 ML Syringe IV ×4 (03:20→20:07)
[2019-08-22] MEDS: Menthol/Lanolin/Calamine/Znox 113 GM Tube 1 APPLIC TOPICAL ×3 (05:06→21:01)
[2019-08-22 05:07] LABS: HEPATITIS B SURFACE AG 6510 Negative (Negative); Hepatitis C Ab 0.4 s/co ratio (0.0-0.9)
[2019-08-22] MEDS: dilTIAZem 30 MG Tablet 60 MG GT ×3 (05:23→21:03)
[2019-08-22 05:43] LABS: Hep B Surface Antibodies Non Reactive (.)
--- NOTE | 2019-08-22 06:19 | PCM.PN.INT ---
Subjective: The patient was seen and examined at the bedside this morning. Events from the last 24 hours have been reviewed. The patient is currently afebrile, hemodynamically stable and maintaining appropriate oxygen saturations on 2 L/min via nasal cannula. No overnight issues were identified by the nursing staff. The patient remains confused. NG tube remains in place. Objective: The patient's most recent lab work, culture data and imaging studies have all been personally reviewed. General: No apparent distress, Confused, Disoriented HEENT: Atraumatic, Normocephalic, - - NG tube remains in place Oral: Dry Mucosa Neck: Supple, No Nodes, Trachea Midline Lungs: Diminished, Tachypneic, - - Poor inspiratory effort Cardiovascular: Regular rate, Regular Rhythm Abdomen: Bowel Sounds Present, Soft, Non Tender, - - + Ostomy Extremities: No clubbing, No cyanosis, No edema Skin: - - No significant change from previous Musculoskeletal: No Muscle Wasting Lymphatic: No Cervical, Supraclavicular, or Inguinal Adenopathy Neurological: - - No focal deficits. The patient remains quite lethargic still. Psych/Mental Status: Flat Affect Vital Signs Temp Pulse Resp BP Pulse Ox 97.6 F L 98 30 H 106/49 L 93 08/22/19 03:20 08/22/19 06:00 08/22/19 06:00 08/22/19 06:00 08/22/19 06:00 Oxygen Flow Rate (L/min) 2 Oxygen Delivery Method Nasal Cannula Weight: 283 lb 1.176 oz Body Mass Index (BMI) 41.8 Finger Stick Blood Glucose 191 Intake and Output for Last 24 Hours 08/20/19 08/21/19 08/22/19 23:59 23:59 23:59 Intake Total 2868.25 / 2868.25 1873.41 / 1873.41 237.5 / 237.5 Output Total 2525 / 2525 1650 / 1650 425 / 425 Balance 343.25 / 343.25 223.41 / 223.41 -187.5 / -187.5 Labs (Last 48 Hours) 08/20/19 08/20/19 08/21/19 18:40 22:06 02:56 WBC RBC Hgb Hct MCV MCH MCHC RDW Std Deviation RDW Coeff of Tio Plt Count MPV Immature Gran % (Auto) Neut % (Auto) Lymph % (Auto) Franklin % (Auto) Eos % (Auto) Baso % (Auto) Absolute Neuts (auto) Absolute Lymphs (auto) Nucleated RBC % Specimen Type MARTINEZ Sample Site L BRACHIAL O2 % 40 VBG pH 7.37 VBG pO2 28 VBG O2 Sat (Calc) 52 VBG O2 Content 26 VBG Base Excess -1 POC Mix VBG pCO2 Pt Tmp 41.9 Respiration Rate 12 O2 Delivery Device Vent Tidal Volume 500 POC PEEP 5 Sodium Potassium Chloride Carbon Dioxide Anion Gap BUN Creatinine Estim Creat Clear Calc Est GFR (MDRD) Af Amer Est GFR (MDRD) Non-Af BUN/Creatinine Ratio Glucose Calcium Total Creatine Kinase Triglycerides Vancomycin Trough Hep Bs Antigen Hep Bs Antibody Hepatitis C Ab (EIA) Hepatitis C Ab Confirm Hep C Confirm Com 1 HIV 1&2 Antibody POC Glucose 105 106 08/21/19 08/21/19 08/21/19 03:05 03:05 03:05 WBC 10.2 RBC 3.18 L Hgb 9.3 L Hct 31.3 L MCV 98.4 H MCH 29.2 MCHC 29.7 L RDW Std Deviation 60.0 H RDW Coeff of Tio 16.4 H Plt Count 354 MPV 9.4 Immature Gran % (Auto) 2.000 H Neut % (Auto) 80.5 H Lymph % (Auto) 9.7 L Franklin % (Auto) 7.0 Eos % (Auto) 0.3 Baso % (Auto) 0.5 Absolute Neuts (auto) 8.2 H Absolute Lymphs (auto) 0.99 Nucleated RBC % 0 Specimen Type Sample Site O2 % VBG pH VBG pO2 VBG O2 Sat (Calc) VBG O2 Content VBG Base Excess POC Mix VBG pCO2 Pt Tmp Respiration Rate O2 Delivery Device Tidal Volume POC PEEP Sodium 143 Potassium 4.2 Chloride 112 H Carbon Dioxide 26.0 Anion Gap 5 BUN 26 H Creatinine 0.82 Estim Creat Clear Calc 96.16 Est GFR (MDRD) Af Amer 125 Est GFR (MDRD) Non-Af 103 BUN/Creatinine Ratio 31.8 H Glucose 150 H Calcium 7.8 L Total Creatine Kinase Triglycerides Vancomycin Trough Hep Bs Antigen Negative Hep Bs Antibody Non Reactive Hepatitis C Ab (EIA) Pending Hepatitis C Ab Confirm 0.4 Hep C Confirm Com 1 Comment HIV 1&2 Antibody POC Glucose 08/21/19 08/21/19 08/21/19 03:05 03:05 08:10 WBC RBC Hgb Hct MCV MCH MCHC RDW Std Deviation RDW Coeff of Tio Plt Count MPV Immature Gran % (Auto) Neut % (Auto) Lymph % (Auto) Franklin % (Auto) Eos % (Auto) Baso % (Auto) Absolute Neuts (auto) Absolute Lymphs (auto) Nucleated RBC % Specimen Type Sample Site O2 % VBG pH VBG pO2 VBG O2 Sat (Calc) VBG O2 Content VBG Base Excess POC Mix VBG pCO2 Pt Tmp Respiration Rate O2 Delivery Device Tidal Volume POC PEEP Sodium Potassium Chloride Carbon Dioxide Anion Gap BUN Creatinine Estim Creat Clear Calc Est GFR (MDRD) Af Amer Est GFR (MDRD) Non-Af BUN/Creatinine Ratio Glucose Calcium Total Creatine Kinase 177 Triglycerides 502 H Vancomycin Trough Hep Bs Antigen Hep Bs Antibody Hepatitis C Ab (EIA) Hepatitis C Ab Confirm Hep C Confirm Com 1 HIV 1&2 Antibody Non-Reactive POC Glucose 127 H 08/21/19 08/21/19 08/21/19 08:30 17:35 22:04 WBC RBC Hgb Hct MCV MCH MCHC RDW Std Deviation RDW Coeff of Tio Plt Count MPV Immature Gran % (Auto) Neut % (Auto) Lymph % (Auto) Franklin % (Auto) Eos % (Auto) Baso % (Auto) Absolute Neuts (auto) Absolute Lymphs (auto) Nucleated RBC % Specimen Type Sample Site O2 % VBG pH VBG pO2 VBG O2 Sat (Calc) VBG O2 Content VBG Base Excess POC Mix VBG pCO2 Pt Tmp Respiration Rate O2 Delivery Device Tidal Volume POC PEEP Sodium Potassium Chloride Carbon Dioxide Anion Gap BUN Creatinine Estim Creat Clear Calc Est GFR (MDRD) Af Amer Est GFR (MDRD) Non-Af BUN/Creatinine Ratio Glucose Calcium Total Creatine Kinase Triglycerides Vancomycin Trough 26.2 H Hep Bs Antigen Hep Bs Antibody Hepatitis C Ab (EIA) Hepatitis C Ab Confirm Hep C Confirm Com 1 HIV 1&2 Antibody POC Glucose 131 H 127 H Microbiology 08/19/19 12:50 Blood Culture (Wb) - Pic Blood Culture - Preliminary No growth in 48 hours. 08/19/19 16:06 Tissue - Sacral Gram Stain - Final 08/19/19 16:06 Tissue - Sacral Wound Culture - Preliminary Gram negative vivien Gram negative vivien#2 GPC Poss Enterococcus sp 08/19/19 16:06 Tissue - Sacral Gram Stain - Final 08/19/19 16:06 Tissue - Sacral Wound Culture - Preliminary GNR lactose assistant director of financial aid Gram negative vivien Gram negative vivien#2 Staphylococcus aureus 08/18/19 11:45 Blood Culture (Wb) - Pic Blood Culture - Preliminary GNR lactose assistant director of financial aid GNR lactose assistant director of financial aid#2 Coag Negative Staph 08/18/19 16:10 Wound - Aerobic & Anaerobic Swabs Gram Stain - Final 08/18/19 16:10 Wound - Aerobic & Anaerobic Swabs Wound Culture - Preliminary Escherichia coli Proteus mirabilis#2 Proteus mirabilis Enterococcus faecium 08/18/19 16:10 Wound - Aerobic & Anaerobic Swabs Anaerobic Culture - Preliminary Checking for anaerobes, further studies to follow. 08/18/19 11:33 Blood Culture (Wb) - Arm Right Blood Culture - Preliminary No growth in 48 hours. 08/18/19 12:05 Urine, Random Urine Culture - Final Presumptive C albicans Clinical Impression(s) from Imaging Studies Abdomen/Pelvis CT 08/18/19 11:37 IMPRESSION: Hepatomegaly and fatty infiltration of the liver. Right-sided double-J stent catheter with the proximal tip in the right mid pole calyces of the right kidney and the distal tip within the urinary bladder. Small cyst in the left kidney. Diffuse bladder wall thickening. The balloon of a Chakraborty catheter is seen within the prostatic urethra. Stable large soft tissue defect overlying the sacrum. Electronically Signed: Erwin Lazo, at 13:14 EDT , Service support , Chest X-Ray 08/18/19 12:40 IMPRESSION: Status post CABG. Cardiomegaly. Electronically Signed: Erwin Lazo, at 13:09 EDT , Service support , KUB X-Ray 08/20/19 14:01 IMPRESSION: The tip of the nasogastric tube is in the distal portion of the body of the stomach. Electronically Signed: Erwin Lazo, at 14:45 EDT , Service support , Abdomen/Pelvis CT 08/20/19 15:35 IMPRESSION: Evaluation of the GI tract is limited by absence of oral contrast. Grossly satisfactory appearance of left lower quadrant ostomy. No gross evidence for obstruction or ileus. Cannot exclude segmental abnormalities of the bowel wall without oral contrast. Stable right ureteral stent. Fatty liver with hepatomegaly. Cholelithiasis. Electronically Signed: Trenton Jimenez MD at 17:45 EDT , Service support , Abdomen CT 08/20/19 17:40 IMPRESSION: Free air and extravasation of contrast apparently from the right colon proximal to the ileocecal valve, suggestive of perforation. Electronically Signed: Trenton Jimenez MD at 21:56 EDT , Service support , Chest X-Ray 08/21/19 02:04 IMPRESSION: 1. Bilateral medial lung base atelectasis versus infiltrate. 2. Appropriate positioning of supportive devices. Electronically Signed: Blayne Kim MD at 3:46 EDT Tel , Service support , Medical Necessity - Tobacco Use Smoking Status: Current every day smoker Assessment/Plan All Active Problems (Last Updated 12/07/17 @ 08:57 by Shira Conte) Cecum perforation (Acute) Multiple drug resistant Acinetobacter infection (Acute) Methicillin resistant Staphylococcus aureus infection (Acute) Severe sepsis (Acute) Sacral wound (Acute) UTI (urinary tract infection) (Acute) PAD (peripheral artery disease) (Acute) RECOMMENDATIONS: 1. Wean supplemental oxygen to maintain saturations at or above 90%. 2. Attempt trickle tube feeds as tolerated. 3. Continue antimicrobials per infectious diseases recommendations. 4. Avoid oversedation with opiate pain medications. 5. Continue Depakote and seizure precautions. IMPRESSIONS: 1. Severe sepsis The patient has evidence of gram-negative bacteremia, most likely secondary to hematogenous spread from his sacral wound. The patient will be continued on broad-spectrum antimicrobials per ID recommendations. He is currently hemodynamically stable without need for vasopressor support. 2. Metabolic encephalopathy Continue current supportive measures as noted above. The patient has not demonstrated any active seizure activity. I do suspect that his residual lethargy is likely secondary to opiate pain medication utilization. 3. Coronary artery disease status post CABG/atrial fibrillation/unspecified seizure disorder/diabetes mellitus/GERD Complicates care, management, recovery and prognosis. Continue home medications as indicated. This note was generated with link bird dictation software. It may contain incorrect words, spelling, and punctuation that were not noted in checking the note before signing. Inpatient E&M: [id number] [facility]
--- NOTE | 2019-08-22 07:14 | PN_ITS ---
Patient Problems: Active and Suspected Problems (Last Updated 12/07/17 @ 08:57 by Shira Conte) Cecum perforation (Acute) Severe sepsis (Acute) Sacral wound (Acute) UTI (urinary tract infection) (Acute) Reason for Visit: Sepsis secondary to infected sacral decubitus ulcer Subjective: Patient seen currently on the vent however remains delirious. Objective: GENERAL: Awake but delirious HEENT: Atraumatic; EYES; Anicteric, Normal Conjunctiva NECK; supple, normal thyroid, RESPIRATORY: Diminished to auscultation CARDIOVASCULAR: Regular S1 S2, GI: soft, normoactive bowel sounds, surgical incision is dry and intact : No Renal angle tenderness; EXTREMITIES: No edema, no clubbing, MUSCULOSKELETAL: no muscle waisting NEURO: Awake; no lateralizing signs. SKIN: Stage IV sacral decubitus PSYCH; Flat affect Vitals/I&O's: Vital Signs Temp Pulse Resp BP Pulse Ox 97.6 F L 92 35 H 110/49 L 95 08/22/19 03:20 08/22/19 07:00 08/22/19 07:00 08/22/19 07:00 08/22/19 07:00 Oxygen Flow Rate (L/min) 2 Oxygen Delivery Method Nasal Cannula Weight: 128.4 kg Body Mass Index (BMI) 41.8 Finger Stick Blood Glucose 191 Intake and Output for Last 24 Hours 08/20/19 08/21/19 08/22/19 23:59 23:59 23:59 Intake Total 2868.25 / 2868.25 1873.41 / 1873.41 237.5 / 237.5 Output Total 2525 / 2525 1650 / 1650 425 / 425 Balance 343.25 / 343.25 223.41 / 223.41 -187.5 / -187.5 Microbiology Past 72 Hours 08/19/19 12:50 Blood Culture (Wb) - Pic Blood Culture - Preliminary No growth in 48 hours. 08/19/19 16:06 Tissue - Sacral Gram Stain - Final 08/19/19 16:06 Tissue - Sacral Wound Culture - Preliminary Gram negative vivien Gram negative vivien#2 GPC Poss Enterococcus sp 08/19/19 16:06 Tissue - Sacral Gram Stain - Final 08/19/19 16:06 Tissue - Sacral Wound Culture - Preliminary GNR lactose scientific manager Gram negative vivien Gram negative vivien#2 Staphylococcus aureus 08/18/19 11:45 Blood Culture (Wb) - Pic Blood Culture - Preliminary GNR lactose scientific manager GNR lactose scientific manager#2 Coag Negative Staph 08/18/19 16:10 Wound - Aerobic & Anaerobic Swabs Gram Stain - Final 08/18/19 16:10 Wound - Aerobic & Anaerobic Swabs Wound Culture - Preliminary Escherichia coli Proteus mirabilis#2 Proteus mirabilis Enterococcus faecium 08/18/19 16:10 Wound - Aerobic & Anaerobic Swabs Anaerobic Culture - Preliminary Checking for anaerobes, further studies to follow. 08/18/19 11:33 Blood Culture (Wb) - Arm Right Blood Culture - Preliminary No growth in 48 hours. 08/18/19 12:05 Urine, Random Urine Culture - Final Presumptive C albicans Laboratory Results 08/21/19 03:05: Hep Bs Antigen Negative, Hep Bs Antibody Non Reactive, Hepatitis C Ab Confirm 0.4, Hep C Confirm Com 1 Comment 08/21/19 08:10: POC Glucose 127 H 08/21/19 08:30: Vancomycin Trough 26.2 H 08/21/19 17:35: POC Glucose 131 H 08/21/19 22:04: POC Glucose 127 H Current Medications Acetaminophen (Tylenol Liquid) 650 mg GT Q6H PRN PRN PRN Reason: FEVER Aspirin (Aspirin, Baby) 81 mg GT DAILY [facility] Last Admin: 08/21/19 10:38 Dose: 81 mg Documented by: Atorvastatin Calcium (Lipitor) 80 mg GT QHS [facility] Last Admin: 08/21/19 21:47 Dose: 80 mg Documented by: Calamine/Phenol (Calmoseptine Ointment) 1 applic TOPICAL TID [facility]; Protocol Last Admin: 08/22/19 05:06 Dose: 1 applicatio Documented by: Dextrose (D50w Syringe) 0 gm IV X1 PRN; Protocol PRN Reason: Hypoglycemia Diazepam (Valium) 5 mg GT Q6H PRN PRN PRN Reason: SPASMS Diltiazem HCl (Cardizem) 60 mg GT Q8 [facility] Last Admin: 08/22/19 05:23 Dose: 60 mg Documented by: Docusate Sodium (Colace Syrup) 100 mg GT BID [facility] Last Admin: 08/21/19 21:47 Dose: 100 mg Documented by: Famotidine (Pepcid) 20 mg GT DAILY [facility] Last Admin: 07/16/20 10:41 Dose: 20 mg Documented by: Fenofibrate (Tricor) 145 mg GT DAILY [facility] Last Admin: 08/21/19 10:37 Dose: Not Given Documented by: Folic Acid (Folic Acid) 1 mg GT DAILY [facility] Last Admin: 08/21/19 10:38 Dose: 1 mg Documented by: Glucagon () 1 mg IM .X1 PRN PRN Reason: Hypoglycemia Meropenem 1 gm/ Sodium (Chloride) 120 mls @ 33 mls/hr IV Q8 [facility] Last Admin: 08/22/19 05:06 Dose: 33 mls/hr Documented by: Sodium Chloride () 250 mls @ 15 mls/hr IV .[id number] PRN PRN Reason: Saline Flush Last Infusion: 08/20/19 05:01 Dose: 0 mls/hr Documented by: Sodium Chloride () 250 mls @ 15 mls/hr IV .[id number] PRN PRN Reason: Additional IVPB Infusion Eravacycline 125 mg/ Sodium (Chloride) 262.5 mls @ 262.5 mls/hr IV Q12 [facility] Last Infusion: 08/21/19 22:36 Dose: Infused Documented by: Valproic Acid 750 mg/ Dextrose 57.5 mls @ 50 mls/hr IV Q8 [facility] Last Infusion: 08/22/19 06:15 Dose: Infused Documented by: Insulin Human Lispro (Humalog Marjanpen (Bkc)) 0 unit SC ACHS [facility]; Protocol Last Admin: 08/21/19 22:07 Dose: Not Given Documented by: Lactobacillus Acidophilus (Acidophilus) 2 tablet GT DAILY [facility] Last Admin: 08/21/19 10:35 Dose: Not Given Documented by: Lansoprazole (Lansoprazole) 15 mg GT DAILY [facility] Last Admin: 08/21/19 10:43 Dose: 15 mg Documented by: Linezolid (Zyvox) 600 mg PO BID [facility] Last Admin: 08/21/19 21:47 Dose: 600 mg Documented by: Metoprolol Tartrate (Lopressor (Beta Dana)) 100 mg GT BID [facility] Last Admin: 08/21/19 21:47 Dose: 100 mg Documented by: Morphine Sulfate () 1 mg IV Q3H PRN PRN PRN Reason: Pain Score 6-10/10 Last Admin: 08/22/19 03:20 Dose: 1 mg Documented by: Nutritional Formula (Mike - [place] Flavor) 1 packet PO BID [facility] Last Admin: 08/21/19 21:47 Dose: 1 packet Documented by: Polyethylene Glycol (Miralax) 17 gm GT DAILY [facility] Last Admin: 08/21/19 10:36 Dose: Not Given Documented by: Promethazine HCl (Phenergan Tablet) 25 mg GT Q4H PRN PRN PRN Reason: NAUSEA/VOMITING Sodium Chloride () 10 - 40 ml IV UD PRN PRN Reason: SALINE FLUSH Last Admin: 08/22/19 05:15 Dose: 10 ml Documented by: Sodium Hypochlorite (Dakins Solution 0.25% (1/2 Strength)) 1 applic TOPICAL BID [facility]; Protocol Last Admin: 08/21/19 21:29 Dose: 1 applicatio Documented by: STROKE Vital Signs/Narrative: Vital Signs Temp Pulse Resp BP BP Pulse Ox 08/22/19 07:00 92 35 H 108/64 110/49 L 95 08/22/19 06:00 98 30 H 107/64 106/49 L 93 08/22/19 05:00 104 H 26 H 110/52 L 109/53 L 92 08/22/19 04:00 106 H 30 H 101/60 103/51 L 95 08/22/19 03:20 97.6 F L Medical Necessity - Tobacco Use Smoking Status: Current every day smoker Assessment/Plan All Active Problems (Last Updated 12/07/17 @ 08:57 by Shira Conte) Cecum perforation (Acute) Multiple drug resistant Acinetobacter infection (Acute) Methicillin resistant Staphylococcus aureus infection (Acute) Severe sepsis (Acute) Sacral wound (Acute) UTI (urinary tract infection) (Acute) PAD (peripheral artery disease) (Acute) Patient is a 58-year-old male admitted with altered mental status secondary to infected decubitus 1. Severe sepsis secondary to decubitus ulcer and UTI -Due to combination of UTI and infected decubitus ulcer. Admitted to the intensive care unit where patient is currently being managed per protocol 2. Infected stage IV sacral decubitus ulcer ?Patient presented with severe sepsis admitted to the intensive care unit started on broad-spectrum antibiotic therapy as well as IV fluid resuscitation. Consult was placed Dr. Nguyễn with plastic surgery as well as Dr. Crystal with general surgery for diverting colostomy creation -08/20/2019 patient underwent excision worsening infected sacral pressure sore from stool contamination, Stage IV, with partial ostectomy for osteomyelitis on 08/19/[address] Nguyễn. Patient is scheduled to undergo diverting colostomy creation by Dr. Crystal this afternoon -08/21/2019. Patient diverting colostomy procedure was complicated by injury to the cecum leading to patient undergoing further surgical repair -Wound cultures polymicrobial as posted below. Antibiotic therapy deferred to infectious disease 3. Status post laparoscopic ileocecectomy with primary anastomosis as a result of iatrogenic perforation of the cecum - Patient underwent diverting colostomy on 08/20/2019. Procedure was apparently complicated by trocar injury to the posterior cecum leading to patient going back to the OR with laparoscopic colectomy with primary reanastomosis done. Patient was left on the vent following the procedure. -08/22/2019; plan is for patient to start tube feeding 4. Acute respiratory failure ?Following patient surgical intervention currently on the vent vent management deferred to Dr. Campbell with intensive care ?08/22/2019 weaned off the vent the day prior 5. Acute Cystitis ?Secondary to presence of indwelling Chakraborty catheter. On antibiotics cultures sent 6. Acute metabolic encephalopathy ?Due to combination of UTI and infected decubitus ulcer. Admitted to the intensive care unit where patient is currently being managed per protocol 7. Seizure disorder ?symptoms controlled on valproic acid 8. Hypertension - Blood pressure controlled, home medications continued with dose adjustment as needed 9. Dyslipidemia -Patient is on statin therapy, continued at home dose 10. Diabetes mellitus type II - Controlled metformin held on admission, placed on Accu-Cheks a.c. and at bedtime and covered with sliding scale insulin 11. Coronary artery disease -with previous CABG 12. Paroxysmal A. fib ?Rate controlled on beta-blockers and Cardizem in addition to Lovenox 13. Morbid obesity with BMI of 41.4 14. DVT prophylaxis ?Lovenox Microbiology 08/18/19 11:45 Blood Culture (Wb) - Pic Blood Culture - Final Enterobacter cloacae complex Enterobacter cloacae complex#2 Staphylococcus epidermidis 08/19/19 16:06 Tissue - Sacral Gram Stain - Final 08/19/19 16:06 Tissue - Sacral Wound Culture - Preliminary GNR lactose scientific manager Gram negative vivien Gram negative vivien#2 Staphylococcus aureus 08/19/19 16:06 Tissue - Sacral Anaerobic Culture - Preliminary Checking for anaerobes, further studies to follow. 08/19/19 12:50 Blood Culture (Wb) - Pic Blood Culture - Preliminary No growth in 48 hours. 08/19/19 16:06 Tissue - Sacral Gram Stain - Final 08/19/19 16:06 Tissue - Sacral Wound Culture - Preliminary Gram negative vivien Gram negative vivien#2 GPC Poss Enterococcus sp 08/18/19 16:10 Wound - Aerobic & Anaerobic Swabs Gram Stain - Final 08/18/19 16:10 Wound - Aerobic & Anaerobic Swabs Wound Culture - Preliminary Escherichia coli Proteus mirabilis#2 Proteus mirabilis Enterococcus faecium 08/18/19 16:10 Wound - Aerobic & Anaerobic Swabs Anaerobic Culture - Preliminary Checking for anaerobes, further studies to follow. 08/18/19 11:33 Blood Culture (Wb) - Arm Right Blood Culture - Preliminary No growth in 48 hours. 08/18/19 12:05 Urine, Random Urine Culture - Final Presumptive C albicans 08/19/19 00:45 Stool C. difficile DNA Amplification - Final Inpatient E&M: [id number] Subs Hosp L3
--- NOTE | 2019-08-22 07:37 | PCM.PN.SRG ---
Patient Problems: Active and Suspected Problems (Last Updated 12/07/17 @ 08:57 by Shira Conte) Cecum perforation (Acute) Severe sepsis (Acute) Sacral wound (Acute) UTI (urinary tract infection) (Acute) Subjective: Patient is improved this morning. He is extubated on 2 L nasal cannula. He has stool from his colostomy. - Physical Exam Vitals/I&O's: Vital Signs Temp Pulse Resp BP Pulse Ox 97.6 F L 92 35 H 110/49 L 95 08/22/19 03:20 08/22/19 07:00 08/22/19 07:00 08/22/19 07:00 08/22/19 07:00 Oxygen Flow Rate (L/min) 2 Oxygen Delivery Method Nasal Cannula Weight: 283 lb 1.176 oz Body Mass Index (BMI) 41.8 Finger Stick Blood Glucose 191 Intake and Output for Last 24 Hours 08/20/19 08/21/19 08/22/19 23:59 23:59 23:59 Intake Total 2868.25 / 2868.25 1873.41 / 1873.41 237.5 / 237.5 Output Total 2525 / 2525 1650 / 1650 425 / 425 Balance 343.25 / 343.25 223.41 / 223.41 -187.5 / -187.5 General: Alert, No apparent distress Lungs: Normal air movement Cardiovascular: Regular Rhythm Abdomen: Soft, Non-Distended Microbiology Past 72 Hours 08/19/19 12:50 Blood Culture (Wb) - Pic Blood Culture - Preliminary No growth in 48 hours. 08/19/19 16:06 Tissue - Sacral Gram Stain - Final 08/19/19 16:06 Tissue - Sacral Wound Culture - Preliminary Gram negative vivien Gram negative vivien#2 GPC Poss Enterococcus sp 08/19/19 16:06 Tissue - Sacral Gram Stain - Final 08/19/19 16:06 Tissue - Sacral Wound Culture - Preliminary GNR lactose educational resource coordinator Gram negative vivien Gram negative vivien#2 Staphylococcus aureus 08/18/19 11:45 Blood Culture (Wb) - Pic Blood Culture - Preliminary GNR lactose educational resource coordinator GNR lactose educational resource coordinator#2 Coag Negative Staph 08/18/19 16:10 Wound - Aerobic & Anaerobic Swabs Gram Stain - Final 08/18/19 16:10 Wound - Aerobic & Anaerobic Swabs Wound Culture - Preliminary Escherichia coli Proteus mirabilis#2 Proteus mirabilis Enterococcus faecium 08/18/19 16:10 Wound - Aerobic & Anaerobic Swabs Anaerobic Culture - Preliminary Checking for anaerobes, further studies to follow. 08/18/19 11:33 Blood Culture (Wb) - Arm Right Blood Culture - Preliminary No growth in 48 hours. 08/18/19 12:05 Urine, Random Urine Culture - Final Presumptive C albicans Laboratory Results 08/21/19 03:05: Hep Bs Antigen Negative, Hep Bs Antibody Non Reactive, Hepatitis C Ab Confirm 0.4, Hep C Confirm Com 1 Comment 08/21/19 08:10: POC Glucose 127 H 08/21/19 08:30: Vancomycin Trough 26.2 H 08/21/19 17:35: POC Glucose 131 H 08/21/19 22:04: POC Glucose 127 H Current Medications Acetaminophen (Tylenol Liquid) 650 mg GT Q6H PRN PRN PRN Reason: FEVER Aspirin (Aspirin, Baby) 81 mg GT DAILY [facility] Last Admin: 08/21/19 10:38 Dose: 81 mg Documented by: Atorvastatin Calcium (Lipitor) 80 mg GT QHS [facility] Last Admin: 08/21/19 21:47 Dose: 80 mg Documented by: Calamine/Phenol (Calmoseptine Ointment) 1 applic TOPICAL TID [facility]; Protocol Last Admin: 08/22/19 05:06 Dose: 1 applicatio Documented by: Dextrose (D50w Syringe) 0 gm IV X1 PRN; Protocol PRN Reason: Hypoglycemia Diazepam (Valium) 5 mg GT Q6H PRN PRN PRN Reason: SPASMS Diltiazem HCl (Cardizem) 60 mg GT Q8 [facility] Last Admin: 08/22/19 05:23 Dose: 60 mg Documented by: Docusate Sodium (Colace Syrup) 100 mg GT BID [facility] Last Admin: 08/21/19 21:47 Dose: 100 mg Documented by: Famotidine (Pepcid) 20 mg GT DAILY [facility] Last Admin: 08/21/19 10:41 Dose: 20 mg Documented by: Fenofibrate (Tricor) 145 mg GT DAILY [facility] Last Admin: 08/21/19 10:37 Dose: Not Given Documented by: Folic Acid (Folic Acid) 1 mg GT DAILY [facility] Last Admin: 08/21/19 10:38 Dose: 1 mg Documented by: Glucagon () 1 mg IM .X1 PRN PRN Reason: Hypoglycemia Meropenem 1 gm/ Sodium (Chloride) 120 mls @ 33 mls/hr IV Q8 [facility] Last Admin: 08/22/19 05:06 Dose: 33 mls/hr Documented by: Sodium Chloride () 250 mls @ 15 mls/hr IV .[id number] PRN PRN Reason: Saline Flush Last Infusion: 08/20/19 05:01 Dose: 0 mls/hr Documented by: Sodium Chloride () 250 mls @ 15 mls/hr IV .[id number] PRN PRN Reason: Additional IVPB Infusion Eravacycline 125 mg/ Sodium (Chloride) 262.5 mls @ 262.5 mls/hr IV Q12 [facility] Last Infusion: 08/21/19 22:36 Dose: Infused Documented by: Valproic Acid 750 mg/ Dextrose 57.5 mls @ 50 mls/hr IV Q8 [facility] Last Infusion: 08/22/19 06:15 Dose: Infused Documented by: Insulin Human Lispro (Humalog Marjanpen (Bkc)) 0 unit SC ACHS [facility]; Protocol Last Admin: 08/21/19 22:07 Dose: Not Given Documented by: Lactobacillus Acidophilus (Acidophilus) 2 tablet GT DAILY [facility] Last Admin: 08/21/19 10:35 Dose: Not Given Documented by: Lansoprazole (Lansoprazole) 15 mg GT DAILY [facility] Last Admin: 08/21/19 10:43 Dose: 15 mg Documented by: Linezolid (Zyvox) 600 mg PO BID [facility] Last Admin: 08/21/19 21:47 Dose: 600 mg Documented by: Metoprolol Tartrate (Lopressor (Beta Dana)) 100 mg GT BID [facility] Last Admin: 08/21/19 21:47 Dose: 100 mg Documented by: Morphine Sulfate () 1 mg IV Q3H PRN PRN PRN Reason: Pain Score 6-10/10 Last Admin: 08/22/19 03:20 Dose: 1 mg Documented by: Nutritional Formula (Mike - [place] Flavor) 1 packet PO BID [facility] Last Admin: 08/21/19 21:47 Dose: 1 packet Documented by: Polyethylene Glycol (Miralax) 17 gm GT DAILY [facility] Last Admin: 08/21/19 10:36 Dose: Not Given Documented by: Promethazine HCl (Phenergan Tablet) 25 mg GT Q4H PRN PRN PRN Reason: NAUSEA/VOMITING Sodium Chloride () 10 - 40 ml IV UD PRN PRN Reason: SALINE FLUSH Last Admin: 08/22/19 05:15 Dose: 10 ml Documented by: Sodium Hypochlorite (Dakins Solution 0.25% (1/2 Strength)) 1 applic TOPICAL BID [facility]; Protocol Last Admin: 08/21/19 21:29 Dose: 1 applicatio Documented by: Medical Necessity - Tobacco Use Smoking Status: Current every day smoker Assessment/Plan All Active Problems (Last Updated 12/07/17 @ 08:57 by Shira Conte) Cecum perforation (Acute) Multiple drug resistant Acinetobacter infection (Acute) Methicillin resistant Staphylococcus aureus infection (Acute) Severe sepsis (Acute) Sacral wound (Acute) UTI (urinary tract infection) (Acute) PAD (peripheral artery disease) (Acute) 59-year-old male status post sigmoid colostomy and ileocecectomy 1. The patient appears to be doing well. He does have stool coming from his colostomy is colostomy is pink. His abdomen is soft and nondistended. He is not complaining of tenderness to palpation. He is still confused. He has an NG tube and that has not had much out overnight. I believe that the patient is doing well this morning his vitals are stable and he is nondistended. I recommend starting trickle tube feeds and checking residuals. He may also start Lovenox today. Jared Crystal MD Pager: [facility] [address] [place] [address], [address] [place] [address] Office:
--- NOTE | 2019-08-22 08:21 | PCM.NTREPORT ---
Nutrition Therapy Report - History Nutrition Services has been consulted to:: Manage enteral nutrition Current diet / nutrition support order:: NPO - Anthropometric Measurements Height:: 5 ft 9 in Weight:: 128.4 kg Body Mass Index (BMI):: 41.8 - Relevant Labs Relevant Labs:: WBC 15.1 K/mm3 (4.4-11.0) H 08/20/19 04:00 RBC 3.18 M/mm3 (4.6-6.2) L 08/21/19 03:05 Hgb 9.3 g/dL (13.0-16.5) L 08/21/19 03:05 Hct 31.3 % (40-54) L 08/21/19 03:05 MCV 98.4 fL (80-94) H 08/21/19 03:05 MCHC 29.7 g/dL (32-36) L 08/21/19 03:05 RDW Std Deviation 60.0 fl (35.1-43.9) H 08/21/19 03:05 RDW Coeff of Tio 16.4 % (11.6-14.6) H 08/21/19 03:05 Plt Count 484 K/mm3 (150-450) H 08/18/19 11:45 Immature Gran % (Auto) 2.000 % (0.0-0.9) H 08/21/19 03:05 Neut % (Auto) 80.5 % (47-70) H 08/21/19 03:05 Lymph % (Auto) 9.7 % (19-41) L 08/21/19 03:05 Absolute Neuts (auto) 8.2 X10^3/uL (2.0-7.7) H 08/21/19 03:05 Chloride 112 mmol/L (98-107) H 08/21/19 03:05 Anion Gap 4 (5-15) L 08/20/19 04:00 BUN 26 mg/dL (7-18) H 08/21/19 03:05 BUN/Creatinine Ratio 31.8 RATIO (10-20) H 08/21/19 03:05 Glucose 150 mg/dL (74-106) H 08/21/19 03:05 Lactic Acid 2.3 mmol/L (0.4-1.9) H* 08/18/19 15:43 Calcium 7.8 mg/dL (8.5-10.1) L 08/21/19 03:05 AST 44 U/L (15-37) H 08/18/19 11:45 Alkaline Phosphatase 125 U/L (45-117) H 08/18/19 11:45 Albumin 2.1 g/dL (3.2-5.0) L 08/18/19 11:45 Globulin 5.9 g/dL (2.2-4.2) H 08/18/19 11:45 Albumin/Globulin Ratio 0.4 RATIO (0.9-2.4) L 08/18/19 11:45 Prealbumin 5.1 mg/dL (20.0-40.0) L 08/20/19 04:00 Triglycerides 502 mg/dL (-199) H 08/21/19 03:05 - Assessment Food / Nutrition-Related History:: Pt extubated yesterday - NG remains in place at low intermittent suction. Noted plan to start trickle feeds as tolerated today. WT decrease of .3 kg since last review. Has generalized nonpitting edema - likely to see wt loss as fluid status improves. Orders for Mike bid to help w/ wound healing of sacral decub ulcer. [ End ] - Nutrition Diagnosis Problem / Etiology / Signs & Symptoms (PES):: Pt with inadequate nutrition r/t increased nutritional needs for healing of stage IV sacral decub ulcer aeb NPO status. [ End ] Evidence of Malnutrition Exists:: No - Nutrition Intervention Nutrition Prescription:: Pt estimated nutritional needs ~[id number] josh / 120-150 gm pro/day. [ End ] - Food / Nutrient Delivery Interventions Summary of nutrition intervention:: While NPO w/ NG - rec Pivot 1.5 at goal rate 55 cc/hr with 150 cc H2O flush every 4 hours to provide ~ 1980 ca/ 123 gm pro/ 1970 cc free water/day. Per Dr. Crystal, plans for trickle feeds today so rec Pivot 1.5 10 cc/hr and advance by by 10 cc/hr every 12 hours until goal rate of 55 cc/hr achieved. When medically able for po diet, rec 2000 calorie controlled diet. Continue Mike 1 packet BID for wound healing. [ End ] Nutrition support ordered as / adjusted to:: While NPO w/ NG - rec Pivot 1.5 at goal rate 55 cc/hr with 150 cc H2O flush every 4 hours to provide ~ 1980 ca/ 123 gm pro/ 1970 cc free water/day. Per Dr. Crystal, plans for trickle feeds today so ordered Pivot 1.5 10 cc/hr and advance by by 10 cc/hr every 12 hours until goal rate of 55 cc/hr achieved. Nutrition education provided?: No - MNT Monitoring Further MNT monitoring and evaluation required?: Yes MNT Follow-up in:: 1-2 days - If questions - please call RD/LD at x [phone]
[2019-08-22] MEDS: Pivot 1.5 Cal 1,000 ML 10 ML GT (09:48)
[2019-08-22] MEDS: Aspirin 81 MG TAB.CHEW GT (09:51)
[2019-08-22] MEDS: Polyethylene Glycol 3350 17 GM PACKET GT (09:52)
[2019-08-22] MEDS: Folic Acid 1 MG Tablet GT (09:52)
[2019-08-22] MEDS: Fenofibrate 145 MG Tablet GT (09:53)
[2019-08-22] MEDS: Famotidine 20 MG Tablet GT (09:53)
[2019-08-22] MEDS: Linezolid 600 MG Tablet PO (09:54)
[2019-08-22] MEDS: Docusate Sodium 100 MG/10 ML UDC GT ×2 (11:28→21:03)
[2019-08-22] MEDS: Acetaminophen 650 MG/20 ML UDC GT (11:28)
--- NOTE | 2019-08-22 12:30 | NURSING ---
coyne dc and new coyne placed, unsure of insertion date.
[2019-08-22] MEDS: DAKIN'S SOL HALF STRENGTH (=0.25%) 1 APPLIC TOPICAL ×2 (12:32→21:01)
[2019-08-22 12:56] LABS: Bedside Glucose 128 mg/dL (70-110)
[2019-08-22] MEDS: Enoxaparin 40 MG/0.4 ML Syringe SC (15:58)
--- NOTE | 2019-08-22 17:17 | PN.ID_ITS ---
Patient Problems: Active and Suspected Problems (Last Updated 12/07/17 @ 08:57 by Shira Conte) Cecum perforation (Acute) Severe sepsis (Acute) Sacral wound (Acute) UTI (urinary tract infection) (Acute) Subjective: Off vent, no fever, remains in icu - Physical Exam Vitals/I&O's: Vital Signs Temp Pulse Resp BP Pulse Ox 100.6 F H 81 21 H 118/52 L 97 08/22/19 22:00 08/22/19 22:00 08/22/19 22:00 08/22/19 22:00 08/22/19 22:00 Oxygen Flow Rate (L/min) 2 Oxygen Delivery Method Nasal Cannula Weight: 128.4 kg Body Mass Index (BMI) 41.8 Finger Stick Blood Glucose 191 Intake and Output for Last 24 Hours 08/20/19 08/21/19 08/22/19 23:59 23:59 23:59 Intake Total 2868.25 / 2868.25 1873.41 / 1873.41 1214.5 / 1214.5 Output Total 2525 / 2525 1650 / 1650 1950 / 1950 Balance 343.25 / 343.25 223.41 / 223.41 -735.5 / -735.5 General: - - ill appearing Lungs: Diminished Cardiovascular: Regular rate, Regular Rhythm Abdomen: Soft, Non Tender, Non-Distended Skin: Ulcer/ Wound Microbiology Past 72 Hours 08/19/19 16:06 Tissue - Sacral Gram Stain - Final 08/19/19 16:06 Tissue - Sacral Wound Culture - Preliminary Providencia stuartii Acinetobacter baumannii Vancomycin Resist. E. faecium 08/19/19 16:06 Tissue - Sacral Anaerobic Culture - Preliminary Checking for anaerobes, further studies to follow. 08/19/19 16:06 Tissue - Sacral Gram Stain - Final 08/19/19 16:06 Tissue - Sacral Wound Culture - Final Escherichia coli Proteus mirabilis Providencia stuartii Meth. resistant Staph. aureus 08/19/19 16:06 Tissue - Sacral Anaerobic Culture - Preliminary Checking for anaerobes, further studies to follow. 08/18/19 16:10 Wound - Aerobic & Anaerobic Swabs Gram Stain - Final 08/18/19 16:10 Wound - Aerobic & Anaerobic Swabs Wound Culture - Preliminary Escherichia coli Proteus mirabilis#2 Proteus mirabilis Enterococcus faecium 08/18/19 16:10 Wound - Aerobic & Anaerobic Swabs Anaerobic Culture - Preliminary Checking for anaerobes, further studies to follow. 08/18/19 11:45 Blood Culture (Wb) - Pic Blood Culture - Final Enterobacter cloacae complex Enterobacter cloacae complex#2 Staphylococcus epidermidis 08/19/19 12:50 Blood Culture (Wb) - Pic Blood Culture - Preliminary No growth in 48 hours. 08/18/19 11:33 Blood Culture (Wb) - Arm Right Blood Culture - Preliminary No growth in 48 hours. 08/18/19 12:05 Urine, Random Urine Culture - Final Presumptive C albicans Laboratory Results 08/21/19 03:05: Hep Bs Antigen Negative, Hep Bs Antibody Non Reactive, Hepatitis C Ab (EIA) Not Reportable, Hepatitis C Ab Confirm 0.4, Hep C Confirm Com 1 Comment 08/22/19 12:45: POC Glucose 128 H 08/22/19 18:36: POC Glucose 114 H Current Medications Acetaminophen (Tylenol Liquid) 650 mg GT Q6H PRN PRN PRN Reason: Pain Score 1-10/10 Last Admin: 08/22/19 11:28 Dose: 650 mg Documented by: Aspirin (Aspirin, Baby) 81 mg GT DAILY [facility] Last Admin: 08/22/19 09:51 Dose: 81 mg Documented by: Atorvastatin Calcium (Lipitor) 80 mg GT QHS [facility] Last Admin: 08/22/19 21:04 Dose: 80 mg Documented by: Calamine/Phenol (Calmoseptine Ointment) 1 applic TOPICAL TID [facility]; Protocol Last Admin: 08/22/19 21:01 Dose: 1 applicatio Documented by: Dextrose (D50w Syringe) 0 gm IV X1 PRN; Protocol PRN Reason: Hypoglycemia Diazepam (Valium) 5 mg GT Q6H PRN PRN PRN Reason: SPASMS Diltiazem HCl (Cardizem) 60 mg GT Q8 [facility] Last Admin: 08/22/19 21:03 Dose: 60 mg Documented by: Docusate Sodium (Colace Syrup) 100 mg GT BID [facility] Last Admin: 08/22/19 21:03 Dose: 100 mg Documented by: Enoxaparin Sodium (Lovenox) 40 mg SC DAILY [facility] Famotidine (Pepcid) 20 mg GT DAILY [facility] Last Admin: 08/22/19 09:53 Dose: 20 mg Documented by: Fenofibrate (Tricor) 145 mg GT DAILY [facility] Last Admin: 08/22/19 09:53 Dose: 145 mg Documented by: Folic Acid (Folic Acid) 1 mg GT DAILY [facility] Last Admin: 08/22/19 09:52 Dose: 1 mg Documented by: Glucagon () 1 mg IM .X1 PRN PRN Reason: Hypoglycemia Meropenem 1 gm/ Sodium (Chloride) 120 mls @ 33 mls/hr IV Q8 [facility] Last Admin: 08/22/19 21:02 Dose: 33 mls/hr Documented by: Sodium Chloride () 250 mls @ 15 mls/hr IV .[id number] PRN PRN Reason: Saline Flush Last Infusion: 08/20/19 05:01 Dose: 0 mls/hr Documented by: Sodium Chloride () 250 mls @ 15 mls/hr IV .[id number] PRN PRN Reason: Additional IVPB Infusion Eravacycline 125 mg/ Sodium (Chloride) 262.5 mls @ 262.5 mls/hr IV Q12 [facility] Last Admin: 08/22/19 21:56 Dose: 263 mls/hr Documented by: Valproic Acid 750 mg/ Dextrose 57.5 mls @ 50 mls/hr IV Q8 [facility] Last Admin: 08/22/19 21:45 Dose: 50 mls/hr Documented by: Lactose (Pivot 1.5 Yousuf) 1,000 mls @ 10 mls/hr GT .Q48H [facility] Last Admin: 08/22/19 09:48 Dose: 10 mls/hr Documented by: Insulin Human Lispro (Humalog Mason (Bkc)) 0 unit SC Q6H [facility]; Protocol Last Admin: 08/22/19 18:52 Dose: Not Given Documented by: Lactobacillus Acidophilus (Acidophilus) 2 tablet GT DAILY [facility] Last Admin: 08/22/19 09:51 Dose: 2 tablet Documented by: Linezolid (Zyvox) 600 mg GT BID [facility] Last Admin: 08/22/19 21:03 Dose: 600 mg Documented by: Metoprolol Tartrate (Lopressor (Beta Dana)) 100 mg GT BID [facility] Last Admin: 08/22/19 21:04 Dose: 100 mg Documented by: Morphine Sulfate () 1 mg IV Q3H PRN PRN PRN Reason: Pain Score 6-10/10 Last Admin: 08/22/19 20:06 Dose: 1 mg Documented by: Nutritional Formula (Mike - Ness Flavor) 1 packet GT BID [facility] Last Admin: 08/22/19 21:03 Dose: 1 packet Documented by: Nystatin (Mycostatin Powder) 1 applic TOPICAL BID [facility]; Protocol Last Admin: 08/22/19 21:01 Dose: 1 applicatio Documented by: Polyethylene Glycol (Miralax) 17 gm GT DAILY [facility] Last Admin: 08/22/19 09:52 Dose: 17 gm Documented by: Promethazine HCl (Phenergan Tablet) 25 mg GT Q4H PRN PRN PRN Reason: NAUSEA/VOMITING Sodium Chloride () 10 - 40 ml IV UD PRN PRN Reason: SALINE FLUSH Last Admin: 08/22/19 20:07 Dose: 30 ml Documented by: Sodium Hypochlorite (Dakins Solution 0.25% (1/2 Strength)) 1 applic TOPICAL BID [facility]; Protocol Last Admin: 08/22/19 21:01 Dose: 1 applicatio Documented by: Medical Necessity - Tobacco Use Smoking Status: Current every day smoker Route of nutrition/ use of supplements: [] Nutritional Intake: [] IV Site: [] Chakraborty Catheter: [] - Assessment/Plan Antibiotics: [] Assessment/Plan: [] Active and Suspected Problems (Last Updated 12/07/17 @ 08:57 by Shira Conte) Severe sepsis (Acute) Sacral wound (Acute) UTI (urinary tract infection) (Acute) severe sepsis with polymicrobial bacteremia, 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 OR 08/[address] Nguyễn for I&D. OR 08/[address] Crystal for diverting ostomy. On linezolid/gudelia/eravacycline. Wbc much improved. Wound cx with providencia, VRE, XDR Acinetobacter, MRSA, proteus. Bcx with enterobacter x2 and MRSE. Spoke with micro lab and requested additional susc testing for the AcB. Will follow
[2019-08-22 18:41] LABS: Bedside Glucose 114 mg/dL (70-110)
[2019-08-22] MEDS: Nystatin Powder 15gm Bottle 1 APPLIC TOPICAL (21:01)
[2019-08-22] MEDS: Linezolid 600 MG Tablet GT (21:03)
[2019-08-22] MEDS: Metoprolol Tartrate 100 MG Tablet GT (21:04)
[2019-08-22] MEDS: Atorvastatin Calcium 80 MG Tablet GT (21:04)
[2019-08-22 23:11] LABS: Bedside Glucose 110 mg/dL (70-110)
[2019-08-23] VITALS (19 sets, daily range): BP systolic 106–145; BP diastolic 48–87; PULSE 80–104; RESP 18–34; TEMP 36.7–38.3; O2SAT 94–97
[2019-08-23] MEDS: Menthol/Lanolin/Calamine/Znox 113 GM Tube 1 APPLIC TOPICAL ×3 (04:33→22:57)
[2019-08-23] MEDS: 0.9% Saline Lock 10 ML Syringe IV ×2 (04:42→14:16)
[2019-08-23] MEDS: dilTIAZem 30 MG Tablet 60 MG GT ×3 (05:39→23:04)
[2019-08-23 05:50] LABS: Bedside Glucose 102 mg/dL (70-110)
--- NOTE | 2019-08-23 06:11 | PN_ITS ---
Subjective: The patient was seen and examined at the bedside this morning. Events from the last 24 hours have been reviewed. The patient currently has a low-grade fever but remains hemodynamically stable. He is maintaining appropriate oxygen saturations on 2 L/min via nasal cannula. The patient remains confused and disoriented, speaking nonsensically. Objective: The patient's most recent lab work, culture data and imaging studies have all been personally reviewed. General: Alert, No apparent distress, Confused, Disoriented HEENT: Atraumatic, Normocephalic Oral: Dry Mucosa Neck: Supple, No Nodes, Trachea Midline Lungs: Diminished Cardiovascular: Regular rate, Regular Rhythm Abdomen: Bowel Sounds Present, Soft, Non Tender, - - Ostomy site is C/D/I Extremities: No clubbing, No cyanosis Skin: - - No significant change from previous Musculoskeletal: No Muscle Wasting Lymphatic: No Cervical, Supraclavicular, or Inguinal Adenopathy Neurological: Neuro grossly intact Psych/Mental Status: Flat Affect Vital Signs Temp Pulse Resp BP Pulse Ox 100.8 F H 88 28 H 106/87 H 95 08/23/19 06:00 08/23/19 06:00 08/23/19 06:00 08/23/19 06:00 08/23/19 06:00 Oxygen Flow Rate (L/min) 2 Oxygen Delivery Method Nasal Cannula Weight: 278 lb 10.629 oz Body Mass Index (BMI) 41.8 Finger Stick Blood Glucose 191 Intake and Output for Last 24 Hours 08/21/19 08/22/19 08/23/19 23:59 23:59 23:59 Intake Total 1873.41 / 1873.41 1534.5 / 1534.5 305 / 305 Output Total 1650 / 1650 1950 / 2100 1185 / 1185 Balance 223.41 / 223.41 -415.5 / -565.5 -880 / -880 Labs (Last 48 Hours) 08/21/19 08/21/19 08/21/19 03:05 08:10 08:30 Vancomycin Trough 26.2 H Hep Bs Antigen Negative Hep Bs Antibody Non Reactive Hepatitis C Ab (EIA) Not Reportable Hepatitis C Ab Confirm 0.4 Hep C Confirm Com 1 Comment POC Glucose 127 H 08/21/19 08/21/19 08/22/19 17:35 22:04 12:45 Vancomycin Trough Hep Bs Antigen Hep Bs Antibody Hepatitis C Ab (EIA) Hepatitis C Ab Confirm Hep C Confirm Com 1 POC Glucose 131 H 127 H 128 H 08/22/19 08/22/19 08/23/19 18:36 23:04 05:41 Vancomycin Trough Hep Bs Antigen Hep Bs Antibody Hepatitis C Ab (EIA) Hepatitis C Ab Confirm Hep C Confirm Com 1 POC Glucose 114 H 110 102 Microbiology 08/19/19 16:06 Tissue - Sacral Gram Stain - Final 08/19/19 16:06 Tissue - Sacral Wound Culture - Preliminary Providencia stuartii Acinetobacter baumannii Vancomycin Resist. E. faecium 08/19/19 16:06 Tissue - Sacral Anaerobic Culture - Preliminary Checking for anaerobes, further studies to follow. 08/19/19 16:06 Tissue - Sacral Gram Stain - Final 08/19/19 16:06 Tissue - Sacral Wound Culture - Final Escherichia coli Proteus mirabilis Providencia stuartii Meth. resistant Staph. aureus 08/19/19 16:06 Tissue - Sacral Anaerobic Culture - Preliminary Checking for anaerobes, further studies to follow. 08/18/19 16:10 Wound - Aerobic & Anaerobic Swabs Gram Stain - Final 08/18/19 16:10 Wound - Aerobic & Anaerobic Swabs Wound Culture - Preliminary Escherichia coli Proteus mirabilis#2 Proteus mirabilis Enterococcus faecium 08/18/19 16:10 Wound - Aerobic & Anaerobic Swabs Anaerobic Culture - Preliminary Checking for anaerobes, further studies to follow. 08/18/19 11:45 Blood Culture (Wb) - Pic Blood Culture - Final Enterobacter cloacae complex Enterobacter cloacae complex#2 Staphylococcus epidermidis 08/19/19 12:50 Blood Culture (Wb) - Pic Blood Culture - Preliminary No growth in 48 hours. Clinical Impression(s) from Imaging Studies Abdomen/Pelvis CT 08/18/19 11:37 IMPRESSION: Hepatomegaly and fatty infiltration of the liver. Right-sided double-J stent catheter with the proximal tip in the right mid pole calyces of the right kidney and the distal tip within the urinary bladder. Small cyst in the left kidney. Diffuse bladder wall thickening. The balloon of a Chakraborty catheter is seen within the prostatic urethra. Stable large soft tissue defect overlying the sacrum. Electronically Signed: Erwin Lazo, at 13:14 EDT , Service support , Chest X-Ray 08/18/19 12:40 IMPRESSION: Status post CABG. Cardiomegaly. Electronically Signed: Erwin Violet, at 13:09 EDT , Service support , KUB X-Ray 08/20/19 14:01 IMPRESSION: The tip of the nasogastric tube is in the distal portion of the body of the stomach. Electronically Signed: Erwin Violet, at 14:45 EDT , Service support , Abdomen/Pelvis CT 08/20/19 15:35 IMPRESSION: Evaluation of the GI tract is limited by absence of oral contrast. Grossly satisfactory appearance of left lower quadrant ostomy. No gross evidence for obstruction or ileus. Cannot exclude segmental abnormalities of the bowel wall without oral contrast. Stable right ureteral stent. Fatty liver with hepatomegaly. Cholelithiasis. Electronically Signed: Trenton Jimenez MD at 17:45 EDT , Service support , Abdomen CT 08/20/19 17:40 IMPRESSION: Free air and extravasation of contrast apparently from the right colon proximal to the ileocecal valve, suggestive of perforation. Electronically Signed: Trenton Jimenez MD at 21:56 EDT , Service support , Chest X-Ray 08/21/19 02:04 IMPRESSION: 1. Bilateral medial lung base atelectasis versus infiltrate. 2. Appropriate positioning of supportive devices. Electronically Signed: Blayne Kim MD at 3:46 EDT Tel , Service support , Medical Necessity - Tobacco Use Smoking Status: Current every day smoker Assessment/Plan All Active Problems (Last Updated 12/07/17 @ 08:57 by Shira Conte) Cecum perforation (Acute) Multiple drug resistant Acinetobacter infection (Acute) Methicillin resistant Staphylococcus aureus infection (Acute) Severe sepsis (Acute) Sacral wound (Acute) UTI (urinary tract infection) (Acute) PAD (peripheral artery disease) (Acute) RECOMMENDATIONS: 1. Wean supplemental oxygen to maintain saturations at or above 90%. 2. Continue tube feeds as tolerated. 3. Continue antimicrobials per infectious diseases recommendations. 4. Avoid oversedation with opiate pain medications. 5. Continue Depakote and seizure precautions. 6. Given the patient's lack of further ICU needs, will sign off. Please call with any additional questions. IMPRESSIONS: 1. Severe sepsis The patient has evidence of gram-negative bacteremia, most likely secondary to hematogenous spread from his sacral wound. The patient will be continued on broad-spectrum antimicrobials per ID recommendations. He is currently hemodynamically stable without need for vasopressor support. 2. Metabolic encephalopathy Continue current supportive measures as noted above. The patient has not demonstrated any active seizure activity. I do suspect that his residual lethargy is likely secondary to opiate pain medication utilization, combined with his underlying infectious process. 3. Coronary artery disease status post CABG/atrial fibrillation/unspecified seizure disorder/diabetes mellitus/GERD Complicates care, management, recovery and prognosis. Continue home medications as indicated. Physical therapy to work with the patient. This note was generated with [employer] software. It may contain incorrect words, spelling, and punctuation that were not noted in checking the note before signing. Inpatient E&M: [id number] [facility] L[facility]
--- NOTE | 2019-08-23 07:20 | PCM.PN.SRG ---
Patient Problems: Active and Suspected Problems (Last Updated 12/07/17 @ 08:57 by Shira Conte) Cecum perforation (Acute) Severe sepsis (Acute) Sacral wound (Acute) UTI (urinary tract infection) (Acute) Subjective: Patient is confused, tolerating tube feeds currently unable to answer orientation questions - Physical Exam Vitals/I&O's: Vital Signs Temp Pulse Resp BP Pulse Ox 100.6 F H 82 26 H 116/67 96 08/23/19 07:00 08/23/19 07:00 08/23/19 07:00 08/23/19 07:00 08/23/19 07:00 Oxygen Flow Rate (L/min) 2 Oxygen Delivery Method Nasal Cannula Weight: 278 lb 10.629 oz Body Mass Index (BMI) 41.8 Finger Stick Blood Glucose 191 Intake and Output for Last 24 Hours 08/21/19 08/22/19 08/23/19 23:59 23:59 23:59 Intake Total 1873.41 / 1873.41 1534.5 / 1534.5 362.5 / 362.5 Output Total 1650 / 1650 1950 / 2100 1185 / 1185 Balance 223.41 / 223.41 -415.5 / -565.5 -822.5 / -822.5 General: Confused HEENT: Atraumatic Abdomen: Soft, - - Incision clean dry intact with dee, colostomy good output, no peritoneal signs Microbiology Past 72 Hours 08/19/19 16:06 Tissue - Sacral Gram Stain - Final 08/19/19 16:06 Tissue - Sacral Wound Culture - Preliminary Providencia stuartii Acinetobacter baumannii Vancomycin Resist. E. faecium 08/19/19 16:06 Tissue - Sacral Anaerobic Culture - Preliminary Checking for anaerobes, further studies to follow. 08/19/19 16:06 Tissue - Sacral Gram Stain - Final 08/19/19 16:06 Tissue - Sacral Wound Culture - Final Escherichia coli Proteus mirabilis Providencia stuartii Meth. resistant Staph. aureus 08/19/19 16:06 Tissue - Sacral Anaerobic Culture - Preliminary Checking for anaerobes, further studies to follow. 08/18/19 16:10 Wound - Aerobic & Anaerobic Swabs Gram Stain - Final 08/18/19 16:10 Wound - Aerobic & Anaerobic Swabs Wound Culture - Preliminary Escherichia coli Proteus mirabilis#2 Proteus mirabilis Enterococcus faecium 08/18/19 16:10 Wound - Aerobic & Anaerobic Swabs Anaerobic Culture - Preliminary Checking for anaerobes, further studies to follow. 08/18/19 11:45 Blood Culture (Wb) - Pic Blood Culture - Final Enterobacter cloacae complex Enterobacter cloacae complex#2 Staphylococcus epidermidis 08/19/19 12:50 Blood Culture (Wb) - Pic Blood Culture - Preliminary No growth in 48 hours. 08/18/19 11:33 Blood Culture (Wb) - Arm Right Blood Culture - Preliminary No growth in 48 hours. 08/18/19 12:05 Urine, Random Urine Culture - Final Presumptive C albicans Laboratory Results 08/21/19 03:05: Hepatitis C Ab (EIA) Not Reportable 08/22/19 12:45: POC Glucose 128 H 08/22/19 18:36: POC Glucose 114 H 08/22/19 23:04: POC Glucose 110 08/23/19 05:41: POC Glucose 102 Current Medications Acetaminophen (Tylenol Liquid) 650 mg GT Q6H PRN PRN PRN Reason: Pain Score 1-10/10 Last Admin: 08/22/19 11:28 Dose: 650 mg Documented by: Aspirin (Aspirin, Baby) 81 mg GT DAILY [facility] Last Admin: 08/22/19 09:51 Dose: 81 mg Documented by: Atorvastatin Calcium (Lipitor) 80 mg GT QHS [facility] Last Admin: 08/22/19 21:04 Dose: 80 mg Documented by: Calamine/Phenol (Calmoseptine Ointment) 1 applic TOPICAL TID [facility]; Protocol Last Admin: 08/23/19 04:33 Dose: 1 applicatio Documented by: Dextrose (D50w Syringe) 0 gm IV X1 PRN; Protocol PRN Reason: Hypoglycemia Diazepam (Valium) 5 mg GT Q6H PRN PRN PRN Reason: SPASMS Diltiazem HCl (Cardizem) 60 mg GT Q8 [facility] Last Admin: 08/23/19 05:39 Dose: 60 mg Documented by: Docusate Sodium (Colace Syrup) 100 mg GT BID [facility] Last Admin: 08/22/19 21:03 Dose: 100 mg Documented by: Enoxaparin Sodium (Lovenox) 40 mg SC DAILY [facility] Famotidine (Pepcid) 20 mg GT DAILY [facility] Last Admin: 08/22/19 09:53 Dose: 20 mg Documented by: Fenofibrate (Tricor) 145 mg GT DAILY [facility] Last Admin: 08/22/19 09:53 Dose: 145 mg Documented by: Folic Acid (Folic Acid) 1 mg GT DAILY [facility] Last Admin: 08/22/19 09:52 Dose: 1 mg Documented by: Glucagon () 1 mg IM .X1 PRN PRN Reason: Hypoglycemia Meropenem 1 gm/ Sodium (Chloride) 120 mls @ 33 mls/hr IV Q8 [facility] Last Admin: 08/23/19 05:31 Dose: 33 mls/hr Documented by: Sodium Chloride () 250 mls @ 15 mls/hr IV .[id number] PRN PRN Reason: Saline Flush Last Infusion: 08/20/19 05:01 Dose: 0 mls/hr Documented by: Sodium Chloride () 250 mls @ 15 mls/hr IV .[id number] PRN PRN Reason: Additional IVPB Infusion Eravacycline 125 mg/ Sodium (Chloride) 262.5 mls @ 262.5 mls/hr IV Q12 [facility] Last Infusion: 08/22/19 22:56 Dose: Infused Documented by: Valproic Acid 750 mg/ Dextrose 57.5 mls @ 50 mls/hr IV Q8 [facility] Last Infusion: 08/23/19 06:57 Dose: Infused Documented by: Lactose (Pivot 1.5 Yousuf) 1,000 mls @ 10 mls/hr GT .Q48H [facility] Last Admin: 08/22/19 09:48 Dose: 10 mls/hr Documented by: Insulin Human Lispro (Humalog Marjanpen (Bkc)) 0 unit SC Q6H [facility]; Protocol Last Admin: 08/23/19 05:41 Dose: Not Given Documented by: Lactobacillus Acidophilus (Acidophilus) 2 tablet GT DAILY [facility] Last Admin: 08/22/19 09:51 Dose: 2 tablet Documented by: Linezolid (Zyvox) 600 mg GT BID [facility] Last Admin: 08/22/19 21:03 Dose: 600 mg Documented by: Metoprolol Tartrate (Lopressor (Beta Dana)) 100 mg GT BID [facility] Last Admin: 08/22/19 21:04 Dose: 100 mg Documented by: Morphine Sulfate () 1 mg IV Q3H PRN PRN PRN Reason: Pain Score 6-10/10 Last Admin: 08/22/19 20:06 Dose: 1 mg Documented by: Nutritional Formula (Mike - Screven Flavor) 1 packet GT BID [facility] Last Admin: 08/22/19 21:03 Dose: 1 packet Documented by: Nystatin (Mycostatin Powder) 1 applic TOPICAL BID [facility]; Protocol Last Admin: 08/22/19 21:01 Dose: 1 applicatio Documented by: Polyethylene Glycol (Miralax) 17 gm GT DAILY [facility] Last Admin: 08/22/19 09:52 Dose: 17 gm Documented by: Promethazine HCl (Phenergan Tablet) 25 mg GT Q4H PRN PRN PRN Reason: NAUSEA/VOMITING Sodium Chloride () 10 - 40 ml IV UD PRN PRN Reason: SALINE FLUSH Last Admin: 08/23/19 04:42 Dose: 10 ml Documented by: Sodium Hypochlorite (Dakins Solution 0.25% (1/2 Strength)) 1 applic TOPICAL BID [facility]; Protocol Last Admin: 08/22/19 21:01 Dose: 1 applicatio Documented by: Medical Necessity - Tobacco Use Smoking Status: Current every day smoker Assessment/Plan All Active Problems (Last Updated 12/07/17 @ 08:57 by Shira Conte) Cecum perforation (Acute) Multiple drug resistant Acinetobacter infection (Acute) Methicillin resistant Staphylococcus aureus infection (Acute) Severe sepsis (Acute) Sacral wound (Acute) UTI (urinary tract infection) (Acute) PAD (peripheral artery disease) (Acute) Continue tube feeds per nutrition recommendations, till patient's confusion improves. Good colostomy output. Continue to monitor.
--- NOTE | 2019-08-23 07:44 | PN_ITS ---
Patient Problems: Active and Suspected Problems (Last Updated 12/07/17 @ 08:57 by Shira Conte) Cecum perforation (Acute) Severe sepsis (Acute) Sacral wound (Acute) UTI (urinary tract infection) (Acute) Reason for Visit: Acute encephalopathy Subjective: Patient seen remains in ICU still delirious. Tube feed was started the day prior appears to be tolerating tube feed well so far Objective: GENERAL: Awake but delirious HEENT: Atraumatic; NG tube in place EYES; Anicteric, Normal Conjunctiva NECK; supple, normal thyroid, RESPIRATORY: Diminished to auscultation CARDIOVASCULAR: Regular S1 S2, GI: soft, normoactive bowel sounds, surgical incision is dry and intact : No Renal angle tenderness; EXTREMITIES: No edema, no clubbing, MUSCULOSKELETAL: no muscle waisting NEURO: Awake; no lateralizing signs. SKIN: Stage IV sacral decubitus PSYCH; Flat affect Vitals/I&O's: Vital Signs Temp Pulse Resp BP Pulse Ox 100.6 F H 80 26 H 116/67 96 08/23/19 07:00 08/23/19 07:43 08/23/19 07:00 08/23/19 07:00 08/23/19 07:00 Oxygen Flow Rate (L/min) 2 Oxygen Delivery Method Nasal Cannula Weight: 126.4 kg Body Mass Index (BMI) 41.8 Finger Stick Blood Glucose 191 Intake and Output for Last 24 Hours 08/21/19 08/22/19 08/23/19 23:59 23:59 23:59 Intake Total 1873.41 / 1873.41 1534.5 / 1534.5 362.5 / 362.5 Output Total 1650 / 1650 1950 / 2100 1185 / 1185 Balance 223.41 / 223.41 -415.5 / -565.5 -822.5 / -822.5 Microbiology Past 72 Hours 08/19/19 16:06 Tissue - Sacral Gram Stain - Final 08/19/19 16:06 Tissue - Sacral Wound Culture - Preliminary Providencia stuartii Acinetobacter baumannii Vancomycin Resist. E. faecium 08/19/19 16:06 Tissue - Sacral Anaerobic Culture - Preliminary Checking for anaerobes, further studies to follow. 08/19/19 16:06 Tissue - Sacral Gram Stain - Final 08/19/19 16:06 Tissue - Sacral Wound Culture - Final Escherichia coli Proteus mirabilis Providencia stuartii Meth. resistant Staph. aureus 08/19/19 16:06 Tissue - Sacral Anaerobic Culture - Preliminary Checking for anaerobes, further studies to follow. 08/18/19 16:10 Wound - Aerobic & Anaerobic Swabs Gram Stain - Final 08/18/19 16:10 Wound - Aerobic & Anaerobic Swabs Wound Culture - Preliminary Escherichia coli Proteus mirabilis#2 Proteus mirabilis Enterococcus faecium 08/18/19 16:10 Wound - Aerobic & Anaerobic Swabs Anaerobic Culture - Preliminary Checking for anaerobes, further studies to follow. 08/18/19 11:45 Blood Culture (Wb) - Pic Blood Culture - Final Enterobacter cloacae complex Enterobacter cloacae complex#2 Staphylococcus epidermidis 08/19/19 12:50 Blood Culture (Wb) - Pic Blood Culture - Preliminary No growth in 48 hours. 08/18/19 11:33 Blood Culture (Wb) - Arm Right Blood Culture - Preliminary No growth in 48 hours. 08/18/19 12:05 Urine, Random Urine Culture - Final Presumptive C albicans Laboratory Results 08/21/19 03:05: Hepatitis C Ab (EIA) Not Reportable 08/22/19 12:45: POC Glucose 128 H 08/22/19 18:36: POC Glucose 114 H 08/22/19 23:04: POC Glucose 110 08/23/19 05:41: POC Glucose 102 Current Medications Acetaminophen (Tylenol Liquid) 650 mg GT Q6H PRN PRN PRN Reason: Pain Score 1-10/10 Last Admin: 08/22/19 11:28 Dose: 650 mg Documented by: Aspirin (Aspirin, Baby) 81 mg GT DAILY [facility] Last Admin: 08/22/19 09:51 Dose: 81 mg Documented by: Atorvastatin Calcium (Lipitor) 80 mg GT QHS [facility] Last Admin: 08/22/19 21:04 Dose: 80 mg Documented by: Calamine/Phenol (Calmoseptine Ointment) 1 applic TOPICAL TID [facility]; Protocol Last Admin: 08/23/19 04:33 Dose: 1 applicatio Documented by: Dextrose (D50w Syringe) 0 gm IV X1 PRN; Protocol PRN Reason: Hypoglycemia Diazepam (Valium) 5 mg GT Q6H PRN PRN PRN Reason: SPASMS Diltiazem HCl (Cardizem) 60 mg GT Q8 [facility] Last Admin: 08/23/19 05:39 Dose: 60 mg Documented by: Docusate Sodium (Colace Syrup) 100 mg GT BID [facility] Last Admin: 08/22/19 21:03 Dose: 100 mg Documented by: Enoxaparin Sodium (Lovenox) 40 mg SC DAILY [facility] Famotidine (Pepcid) 20 mg GT DAILY [facility] Last Admin: 08/22/19 09:53 Dose: 20 mg Documented by: Fenofibrate (Tricor) 145 mg GT DAILY [facility] Last Admin: 08/22/19 09:53 Dose: 145 mg Documented by: Folic Acid (Folic Acid) 1 mg GT DAILY [facility] Last Admin: 08/22/19 09:52 Dose: 1 mg Documented by: Glucagon () 1 mg IM .X1 PRN PRN Reason: Hypoglycemia Meropenem 1 gm/ Sodium (Chloride) 120 mls @ 33 mls/hr IV Q8 [facility] Last Admin: 08/23/19 05:31 Dose: 33 mls/hr Documented by: Sodium Chloride () 250 mls @ 15 mls/hr IV .[id number] PRN PRN Reason: Saline Flush Last Infusion: 08/20/19 05:01 Dose: 0 mls/hr Documented by: Sodium Chloride () 250 mls @ 15 mls/hr IV .[id number] PRN PRN Reason: Additional IVPB Infusion Eravacycline 125 mg/ Sodium (Chloride) 262.5 mls @ 262.5 mls/hr IV Q12 [facility] Last Infusion: 08/22/19 22:56 Dose: Infused Documented by: Valproic Acid 750 mg/ Dextrose 57.5 mls @ 50 mls/hr IV Q8 [facility] Last Infusion: 08/23/19 06:57 Dose: Infused Documented by: Lactose (Pivot 1.5 Yousuf) 1,000 mls @ 10 mls/hr GT .Q48H [facility] Last Admin: 08/22/19 09:48 Dose: 10 mls/hr Documented by: Insulin Human Lispro (Humalog Kwikpen (Bkc)) 0 unit SC Q6H [facility]; Protocol Last Admin: 08/23/19 05:41 Dose: Not Given Documented by: Lactobacillus Acidophilus (Acidophilus) 2 tablet GT DAILY [facility] Last Admin: 08/22/19 09:51 Dose: 2 tablet Documented by: Linezolid (Zyvox) 600 mg GT BID [facility] Last Admin: 08/22/19 21:03 Dose: 600 mg Documented by: Metoprolol Tartrate (Lopressor (Beta Dana)) 100 mg GT BID [facility] Last Admin: 08/22/19 21:04 Dose: 100 mg Documented by: Morphine Sulfate () 1 mg IV Q3H PRN PRN PRN Reason: Pain Score 6-10/10 Last Admin: 08/22/19 20:06 Dose: 1 mg Documented by: Nutritional Formula (Mike - Alton Flavor) 1 packet GT BID [facility] Last Admin: 08/22/19 21:03 Dose: 1 packet Documented by: Nystatin (Mycostatin Powder) 1 applic TOPICAL BID [facility]; Protocol Last Admin: 08/22/19 21:01 Dose: 1 applicatio Documented by: Polyethylene Glycol (Miralax) 17 gm GT DAILY [facility] Last Admin: 08/22/19 09:52 Dose: 17 gm Documented by: Promethazine HCl (Phenergan Tablet) 25 mg GT Q4H PRN PRN PRN Reason: NAUSEA/VOMITING Sodium Chloride () 10 - 40 ml IV UD PRN PRN Reason: SALINE FLUSH Last Admin: 08/23/19 04:42 Dose: 10 ml Documented by: Sodium Hypochlorite (Dakins Solution 0.25% (1/2 Strength)) 1 applic TOPICAL BID [facility]; Protocol Last Admin: 08/22/19 21:01 Dose: 1 applicatio Documented by: STROKE Vital Signs/Narrative: Vital Signs Temp Pulse Resp BP Pulse Ox 08/23/19 07:43 80 08/23/19 07:00 100.6 F H 82 26 H 116/67 96 08/23/19 06:00 100.8 F H 88 28 H 106/87 H 95 08/23/19 05:00 100.8 F H 83 34 H 114/48 L 95 08/23/19 04:00 100.9 F H 83 21 H 119/53 L 96 Medical Necessity - Tobacco Use Smoking Status: Current every day smoker Assessment/Plan All Active Problems (Last Updated 12/07/17 @ 08:57 by Shira Conte) Cecum perforation (Acute) Multiple drug resistant Acinetobacter infection (Acute) Methicillin resistant Staphylococcus aureus infection (Acute) Severe sepsis (Acute) Sacral wound (Acute) UTI (urinary tract infection) (Acute) PAD (peripheral artery disease) (Acute) Patient is a 58-year-old male admitted with altered mental status secondary to infected decubitus 1. Severe sepsis secondary to decubitus ulcer and UTI -Due to combination of UTI and infected decubitus ulcer. Admitted to the intensive care unit where patient is currently being managed per protocol -08/23/2019: Patient deemed stable to be transferred from the ICU 2. Infected stage IV sacral decubitus ulcer ?Patient presented with severe sepsis admitted to the intensive care unit started on broad-spectrum antibiotic therapy as well as IV fluid resuscitation. Consult was placed Dr. Nguyễn with plastic surgery as well as Dr. Crystal with general surgery for diverting colostomy creation -08/20/2019 patient underwent excision worsening infected sacral pressure sore from stool contamination, Stage IV, with partial ostectomy for osteomyelitis on 08/19/[address] Nguyễn. Patient is scheduled to undergo diverting colostomy creation by Dr. Crystal this afternoon -08/21/2019. Patient diverting colostomy procedure was complicated by injury to the cecum leading to patient undergoing further surgical repair -Wound cultures polymicrobial as posted below. Antibiotic therapy deferred to infectious disease -08/23/2019 patient clinical condition remains stable current antibiotic therapy (meropenem and Zyvox) 3. Status post laparoscopic ileocecectomy with primary anastomosis as a result of iatrogenic perforation of the cecum - Patient underwent diverting colostomy on 08/20/2019. Procedure was apparently complicated by trocar injury to the posterior cecum leading to patient going back to the OR with laparoscopic colectomy with primary reanastomosis done. Patient was left on the vent following the procedure. -08/22/2019; plan is for patient to start tube feeding -08/23/2019: Tube feed was started the day prior 4. Acute respiratory failure ?Following patient surgical intervention currently on the vent vent management deferred to Dr. Campbell with intensive care ?08/22/2019 weaned off the vent the day prior 5. Acute Cystitis ?Secondary to presence of indwelling Chakraborty catheter. On antibiotics cultures sent 6. Acute metabolic encephalopathy ?Due to combination of UTI and infected decubitus ulcer. Admitted to the intensive care unit where patient is currently being managed per protocol 7. Seizure disorder ?symptoms controlled on valproic acid 8. Hypertension - Blood pressure controlled, home medications continued with dose adjustment as needed 9. Dyslipidemia -Patient is on statin therapy, continued at home dose 10. Diabetes mellitus type II - Controlled metformin held on admission, placed on Accu-Cheks a.c. and at bedtime and covered with sliding scale insulin 11. Coronary artery disease -with previous CABG 12. Paroxysmal A. fib ?Rate controlled on beta-blockers and Cardizem in addition to Lovenox 13. Morbid obesity with BMI of 41.4 14. 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 08/19/19 12:50 Blood Culture (Wb) - Pic Blood Culture - Preliminary No growth in 48 hours. 08/19/19 16:06 Tissue - Sacral Gram Stain - Final 08/19/19 16:06 Tissue - Sacral Wound Culture - Preliminary Gram negative vivien Gram negative vivien#2 GPC Poss Enterococcus sp 08/18/19 16:10 Wound - Aerobic & Anaerobic Swabs Gram Stain - Final 08/18/19 16:10 Wound - Aerobic & Anaerobic Swabs Wound Culture - Preliminary Escherichia coli Proteus mirabilis#2 Proteus mirabilis Enterococcus faecium 08/18/19 16:10 Wound - Aerobic & Anaerobic Swabs Anaerobic Culture - Preliminary Checking for anaerobes, further studies to follow. 08/18/19 11:33 Blood Culture (Wb) - Arm Right Blood Culture - Preliminary No growth in 48 hours. 08/18/19 12:05 Urine, Random Urine Culture - Final Presumptive C albicans 08/19/19 00:45 Stool C. difficile DNA Amplification - Final Active Medications Acetaminophen (Tylenol Liquid) 650 mg GT Q6H PRN PRN PRN Reason: Pain Score 1-10/10 Last Admin: 08/22/19 11:28 Dose: 650 mg Documented by: Aspirin (Aspirin, Baby) 81 mg GT DAILY [facility] Last Admin: 08/22/19 09:51 Dose: 81 mg Documented by: Atorvastatin Calcium (Lipitor) 80 mg GT QHS [facility] Last Admin: 08/22/19 21:04 Dose: 80 mg Documented by: Calamine/Phenol (Calmoseptine Ointment) 1 applic TOPICAL TID [facility]; Protocol Last Admin: 08/23/19 04:33 Dose: 1 applicatio Documented by: Dextrose (D50w Syringe) 0 gm IV X1 PRN; Protocol PRN Reason: Hypoglycemia Diazepam (Valium) 5 mg GT Q6H PRN PRN PRN Reason: SPASMS Diltiazem HCl (Cardizem) 60 mg GT Q8 [facility] Last Admin: 08/23/19 05:39 Dose: 60 mg Documented by: Docusate Sodium (Colace Syrup) 100 mg GT BID [facility] Last Admin: 08/22/19 21:03 Dose: 100 mg Documented by: Enoxaparin Sodium (Lovenox) 40 mg SC DAILY [facility] Famotidine (Pepcid) 20 mg GT DAILY [facility] Last Admin: 08/22/19 09:53 Dose: 20 mg Documented by: Fenofibrate (Tricor) 145 mg GT DAILY [facility] Last Admin: 08/22/19 09:53 Dose: 145 mg Documented by: Folic Acid (Folic Acid) 1 mg GT DAILY [facility] Last Admin: 08/22/19 09:52 Dose: 1 mg Documented by: Glucagon () 1 mg IM .X1 PRN PRN Reason: Hypoglycemia Meropenem 1 gm/ Sodium (Chloride) 120 mls @ 33 mls/hr IV Q8 [facility] Last Admin: 08/23/19 05:31 Dose: 33 mls/hr Documented by: Sodium Chloride () 250 mls @ 15 mls/hr IV .[id number] PRN PRN Reason: Saline Flush Last Infusion: 08/20/19 05:01 Dose: 0 mls/hr Documented by: Sodium Chloride () 250 mls @ 15 mls/hr IV .[id number] PRN PRN Reason: Additional IVPB Infusion Eravacycline 125 mg/ Sodium (Chloride) 262.5 mls @ 262.5 mls/hr IV Q12 [facility] Last Infusion: 08/22/19 22:56 Dose: Infused Documented by: Valproic Acid 750 mg/ Dextrose 57.5 mls @ 50 mls/hr IV Q8 [facility] Last Infusion: 08/23/19 06:57 Dose: Infused Documented by: Lactose (Pivot 1.5 Yousuf) 1,000 mls @ 10 mls/hr GT .Q48H [facility] Last Admin: 08/22/19 09:48 Dose: 10 mls/hr Documented by: Insulin Human Lispro (Humalog Queikpen (Bkc)) 0 unit SC Q6H [facility]; Protocol Last Admin: 08/23/19 05:41 Dose: Not Given Documented by: Lactobacillus Acidophilus (Acidophilus) 2 tablet GT DAILY [facility] Last Admin: 08/22/19 09:51 Dose: 2 tablet Documented by: Linezolid (Zyvox) 600 mg GT BID [facility] Last Admin: 08/22/19 21:03 Dose: 600 mg Documented by: Metoprolol Tartrate (Lopressor (Beta Dana)) 100 mg GT BID [facility] Last Admin: 08/22/19 21:04 Dose: 100 mg Documented by: Morphine Sulfate () 1 mg IV Q3H PRN PRN PRN Reason: Pain Score 6-10/10 Last Admin: 08/22/19 20:06 Dose: 1 mg Documented by: Nutritional Formula (Mike - Alton Flavor) 1 packet GT BID [facility] Last Admin: 08/22/19 21:03 Dose: 1 packet Documented by: Nystatin (Mycostatin Powder) 1 applic TOPICAL BID [facility]; Protocol Last Admin: 08/22/19 21:01 Dose: 1 applicatio Documented by: Polyethylene Glycol (Miralax) 17 gm GT DAILY [facility] Last Admin: 08/22/19 09:52 Dose: 17 gm Documented by: Promethazine HCl (Phenergan Tablet) 25 mg GT Q4H PRN PRN PRN Reason: NAUSEA/VOMITING Sodium Chloride () 10 - 40 ml IV UD PRN PRN Reason: SALINE FLUSH Last Admin: 08/23/19 04:42 Dose: 10 ml Documented by: Sodium Hypochlorite (Dakins Solution 0.25% (1/2 Strength)) 1 applic TOPICAL BID [facility]; Protocol Last Admin: 08/22/19 21:01 Dose: 1 applicatio Documented by: Inpatient E&M: [id number] Subs Hosp L2
[2019-08-23] MEDS: Morphine 2 MG/ML Syringe 1 MG IV ×2 (09:21→14:16)
[2019-08-23] MEDS: Acetaminophen 650 MG/20 ML UDC GT ×2 (09:25→23:00)
[2019-08-23] MEDS: Polyethylene Glycol 3350 17 GM PACKET GT (10:07)
[2019-08-23] MEDS: DAKIN'S SOL HALF STRENGTH (=0.25%) 1 APPLIC TOPICAL ×2 (10:08→22:58)
[2019-08-23] MEDS: Nystatin Powder 15gm Bottle 1 APPLIC TOPICAL ×2 (10:08→22:59)
[2019-08-23] MEDS: Linezolid 600 MG Tablet GT ×2 (10:14→23:03)
[2019-08-23] MEDS: Docusate Sodium 100 MG/10 ML UDC GT ×2 (10:14→23:02)
[2019-08-23] MEDS: Aspirin 81 MG TAB.CHEW GT (10:14)
[2019-08-23] MEDS: Fenofibrate 145 MG Tablet GT (10:14)
[2019-08-23] MEDS: Famotidine 20 MG Tablet GT (10:14)
[2019-08-23] MEDS: Enoxaparin 40 MG/0.4 ML Syringe SC (10:14)
[2019-08-23] MEDS: Folic Acid 1 MG Tablet GT (10:14)
[2019-08-23] MEDS: Metoprolol Tartrate 100 MG Tablet GT ×2 (10:18→23:03)
--- NOTE | 2019-08-23 11:15 | NURSING ---
Tx to [id number] via bed, Martha (friend) notified
[2019-08-23 12:30] LABS: Bedside Glucose 98 mg/dL (70-110)
[2019-08-23 17:56] LABS: Bedside Glucose 93 mg/dL (70-110)
[2019-08-23] MEDS: Atorvastatin Calcium 80 MG Tablet GT (23:02)
[2019-08-24] VITALS (13 sets, daily range): BP systolic 119–140; BP diastolic 59–81; PULSE 90–123; RESP 16–38; TEMP 36.6–37.3; O2SAT 94–98
[2019-08-24] MEDS: Menthol/Lanolin/Calamine/Znox 113 GM Tube 1 APPLIC TOPICAL ×3 (05:57→21:26)
[2019-08-24] MEDS: dilTIAZem 30 MG Tablet 60 MG GT ×3 (05:58→20:01)
--- NOTE | 2019-08-24 07:24 | PN_ITS ---
Patient Problems: Active and Suspected Problems (Last Updated 12/07/17 @ 08:57 by Shira Conte) Cecum perforation (Acute) Severe sepsis (Acute) Sacral wound (Acute) UTI (urinary tract infection) (Acute) Reason for Visit: Acute encephalopathy Subjective: Patient seen still remains encephalopathic. Patient was transferred from the ICU to [facility] floor the day prior. His lab work this a.m. is significant for sodium of 154 ammonia level of 54. Patient was started on D5W with serial monitoring of electrolytes ordered. Surgical incision remains dry and intact Objective: GENERAL: Awake but delirious HEENT: Atraumatic; NG tube in place EYES; Anicteric, Normal Conjunctiva NECK; supple, normal thyroid, RESPIRATORY: Diminished to auscultation CARDIOVASCULAR: Regular S1 S2, GI: soft, normoactive bowel sounds, surgical incision is dry and intact : No Renal angle tenderness; EXTREMITIES: No edema, no clubbing, MUSCULOSKELETAL: no muscle waisting NEURO: Awake; no lateralizing signs. SKIN: Stage IV sacral decubitus PSYCH; Flat affect Vitals/I&O's: Vital Signs Temp Pulse Resp BP Pulse Ox 98.6 F 95 20 H 126/59 H 98 08/24/19 02:57 08/24/19 04:00 08/24/19 02:57 08/24/19 02:57 08/24/19 02:57 Oxygen Flow Rate (L/min) 2 Oxygen Delivery Method Nasal Cannula Weight: 128.9 kg Body Mass Index (BMI) 41.8 Finger Stick Blood Glucose 191 Intake and Output for Last 24 Hours 08/22/19 08/23/19 08/24/19 23:59 23:59 23:59 Intake Total 1534.5 / 1534.5 1952.5 / 1952.5 1277.5 / 1277.5 Output Total 1950 / 2100 2160 / 2160 1200 / 1200 Balance -415.5 / -565.5 -207.5 / -207.5 77.5 / 77.5 Microbiology Past 72 Hours 08/18/19 11:33 Blood Culture (Wb) - Arm Right Blood Culture - Final No growth in 5 days. 08/18/19 16:10 Wound - Aerobic & Anaerobic Swabs Gram Stain - Final 08/18/19 16:10 Wound - Aerobic & Anaerobic Swabs Wound Culture - Final Escherichia coli Proteus mirabilis#2 Proteus mirabilis Vancomycin Resist. E. faecium 08/18/19 16:10 Wound - Aerobic & Anaerobic Swabs Anaerobic Culture - Final No anaerobic bacteria isolated. 08/19/19 16:06 Tissue - Sacral Gram Stain - Final 08/19/19 16:06 Tissue - Sacral Wound Culture - Preliminary Providencia stuartii Acinetobacter baumannii comple Vancomycin Resist. E. faecium 08/19/19 16:06 Tissue - Sacral Anaerobic Culture - Preliminary Checking for anaerobes, further studies to follow. 08/19/19 16:06 Tissue - Sacral Gram Stain - Final 08/19/19 16:06 Tissue - Sacral Wound Culture - Final Escherichia coli Proteus mirabilis Providencia stuartii Meth. resistant Staph. aureus 08/19/19 16:06 Tissue - Sacral Anaerobic Culture - Preliminary Checking for anaerobes, further studies to follow. 08/18/19 11:45 Blood Culture (Wb) - Pic Blood Culture - Final Enterobacter cloacae complex Enterobacter cloacae complex#2 Staphylococcus epidermidis 08/19/19 12:50 Blood Culture (Wb) - Pic Blood Culture - Preliminary No growth in 48 hours. Laboratory Results 08/23/19 12:24: POC Glucose 98 08/23/19 17:44: POC Glucose 93 Current Medications Acetaminophen (Tylenol Liquid) 650 mg GT Q6H PRN PRN PRN Reason: Pain Score 1-10/10 Last Admin: 08/23/19 23:00 Dose: 650 mg Documented by: Aspirin (Aspirin, Baby) 81 mg GT DAILY [facility] Last Admin: 08/23/19 10:14 Dose: 81 mg Documented by: Atorvastatin Calcium (Lipitor) 80 mg GT QHS [facility] Last Admin: 08/23/19 23:02 Dose: 80 mg Documented by: Calamine/Phenol (Calmoseptine Ointment) 1 applic TOPICAL TID [facility]; Protocol Last Admin: 08/24/19 05:57 Dose: 1 applicatio Documented by: Dextrose (D50w Syringe) 0 gm IV X1 PRN; Protocol PRN Reason: Hypoglycemia Diazepam (Valium) 5 mg GT Q6H PRN PRN PRN Reason: SPASMS Diltiazem HCl (Cardizem) 60 mg GT Q8 [facility] Last Admin: 08/24/19 05:58 Dose: 60 mg Documented by: Docusate Sodium (Colace Syrup) 100 mg GT BID [facility] Last Admin: 08/23/19 23:02 Dose: 100 mg Documented by: Enoxaparin Sodium (Lovenox) 40 mg SC DAILY [facility] Last Admin: 08/23/19 10:14 Dose: 40 mg Documented by: Famotidine (Pepcid) 20 mg GT DAILY [facility] Last Admin: 08/23/19 10:14 Dose: 20 mg Documented by: Fenofibrate (Tricor) 145 mg GT DAILY [facility] Last Admin: 08/23/19 10:14 Dose: 145 mg Documented by: Folic Acid (Folic Acid) 1 mg GT DAILY [facility] Last Admin: 08/23/19 10:14 Dose: 1 mg Documented by: Glucagon () 1 mg IM .X1 PRN PRN Reason: Hypoglycemia Meropenem 1 gm/ Sodium (Chloride) 120 mls @ 33 mls/hr IV Q8 [facility] Last Admin: 08/24/19 06:01 Dose: 33 mls/hr Documented by: Sodium Chloride () 250 mls @ 15 mls/hr IV .[id number] PRN PRN Reason: Saline Flush Last Infusion: 08/23/19 11:24 Dose: Infused Documented by: Sodium Chloride () 250 mls @ 15 mls/hr IV .[id number] PRN PRN Reason: Additional IVPB Infusion Eravacycline 125 mg/ Sodium (Chloride) 262.5 mls @ 262.5 mls/hr IV Q12 [facility] Last Infusion: 08/24/19 00:32 Dose: Infused Documented by: Valproic Acid 750 mg/ Dextrose 57.5 mls @ 50 mls/hr IV Q8 [facility] Last Admin: 08/24/19 06:01 Dose: 50 mls/hr Documented by: Lactose (Pivot 1.5 Yousuf) 1,000 mls @ 10 mls/hr GT .Q48H [facility] Last Admin: 08/22/19 09:48 Dose: 10 mls/hr Documented by: Insulin Human Lispro (Humalog Kwikpen (Bkc)) 0 unit SC Q6H [facility]; Protocol Last Admin: 08/24/19 06:20 Dose: Not Given Documented by: Lactobacillus Acidophilus (Acidophilus) 2 tablet GT DAILY [facility] Last Admin: 08/23/19 10:14 Dose: 2 tablet Documented by: Linezolid (Zyvox) 600 mg GT BID [facility] Last Admin: 08/23/19 23:03 Dose: 600 mg Documented by: Metoprolol Tartrate (Lopressor (Beta Dana)) 100 mg GT BID [facility] Last Admin: 08/23/19 23:03 Dose: 100 mg Documented by: Morphine Sulfate () 1 mg IV Q3H PRN PRN PRN Reason: Pain Score 6-10/10 Last Admin: 08/23/19 14:16 Dose: 1 mg Documented by: Nutritional Formula (Mike - [place] Flavor) 1 packet GT BID [facility] Last Admin: 08/23/19 22:59 Dose: 1 packet Documented by: Nystatin (Mycostatin Powder) 1 applic TOPICAL BID [facility]; Protocol Last Admin: 08/23/19 22:59 Dose: 1 applicatio Documented by: Polyethylene Glycol (Miralax) 17 gm GT DAILY [facility] Last Admin: 08/23/19 10:07 Dose: 17 gm Documented by: Promethazine HCl (Phenergan Tablet) 25 mg GT Q4H PRN PRN PRN Reason: NAUSEA/VOMITING Sodium Chloride () 10 - 40 ml IV UD PRN PRN Reason: SALINE FLUSH Last Admin: 08/23/19 14:16 Dose: 10 ml Documented by: Sodium Hypochlorite (Dakins Solution 0.25% (1/2 Strength)) 1 applic TOPICAL BID [facility]; Protocol Last Admin: 08/23/19 22:58 Dose: 1 applicatio Documented by: STROKE Vital Signs/Narrative: Vital Signs Pulse 08/24/19 04:00 95 Medical Necessity - Tobacco Use Smoking Status: Current every day smoker Assessment/Plan All Active Problems (Last Updated 12/07/17 @ 08:57 by Shira Conte) Cecum perforation (Acute) Multiple drug resistant Acinetobacter infection (Acute) Methicillin resistant Staphylococcus aureus infection (Acute) Severe sepsis (Acute) Sacral wound (Acute) UTI (urinary tract infection) (Acute) PAD (peripheral artery disease) (Acute) Patient is a 58-year-old male admitted with altered mental status secondary to infected decubitus 1. Severe sepsis secondary to decubitus ulcer and UTI -Due to combination of UTI and infected decubitus ulcer. Admitted to the inte nsive care unit where patient is currently being managed per protocol -08/23/2019: Patient deemed stable to be transferred from the ICU 2. Infected stage IV sacral decubitus ulcer secondary to Providencia stuartii, Acinetobacter baumannii complex, Vancomycin Resist. E. faecium ?Patient presented with severe sepsis admitted to the intensive care unit started on broad-spectrum antibiotic therapy as well as IV fluid resuscitation. Consult was placed Dr. Nguyễn with plastic surgery as well as Dr. Crystal with general surgery for diverting colostomy creation -08/20/2019 patient underwent excision worsening infected sacral pressure sore from stool contamination, Stage IV, with partial ostectomy for osteomyelitis on 08/19/[address] Nguyễn. Patient is scheduled to undergo diverting colostomy c reation by Dr. Crystal this afternoon -08/21/2019. Patient diverting colostomy procedure was complicated by injury to the cecum leading to patient undergoing further surgical repair -Wound cultures polymicrobial as posted below. Antibiotic therapy deferred to infectious disease -08/23/2019 patient clinical condition remains stable current antibiotic therapy (meropenem Eravacycline and Zyvox) ?08/24/2019: Patient was placed under contact isolation 3. Status post laparoscopic ileocecectomy with primary anastomosis as a result of iatrogenic perforation of the cecum - Patient underwent diverting colostomy on 08/20/2019. Procedure was apparently complicated by trocar injury to the posterior cecum leading to patient going back to the OR with laparoscopic colectomy with primary reanastomosis done. Patient was left on the vent following the procedure. -08/22/2019; plan is for patient to start tube feeding -08/23/2019: Tube feed was started the day prior 4. Acute respiratory failure ?Following patient surgical intervention currently on the vent vent management deferred to Dr. Campbell with intensive care ?08/22/2019 weaned off the vent the day prior 5. Acute Cystitis ?Secondary to presence of indwelling Chakraborty catheter. On antibiotics cultures sent 6. Acute metabolic encephalopathy ?Due to combination of UTI and infected decubitus ulcer. Admitted to the intensive care unit where patient is currently being managed per protocol -08/24/2019: Patient was found to have significant electrolyte abnormalities including hypernatremia and hyperammonemia possibly worsening his encephalopathy 7. Seizure disorder ?symptoms controlled on valproic acid 8. Hypertension - Blood pressure controlled, home medications continued with dose adjustment as needed 9. Dyslipidemia -Patient is on statin therapy, continued at home dose 10. Diabetes mellitus type II - Controlled metformin held on admission, placed on Accu-Cheks a.c. and at bedtime and covered with sliding scale insulin 11. Coronary artery disease -with previous CABG 12. Paroxysmal A. fib ?Rate controlled on beta-blockers and Cardizem in addition to Lovenox 13. Morbid obesity with BMI of 41.4 14. DVT prophylaxis ?Lovenox 15. Hypernatremia ?Patient started on D5W with serial monitoring of electrolytes ordered Microbiology 08/18/19 11:33 Blood Culture (Wb) - Arm Right Blood Culture - Final No growth in 5 days. 08/18/19 16:10 Wound - Aerobic & Anaerobic Swabs Gram Stain - Final 08/18/19 16:10 Wound - Aerobic & Anaerobic Swabs Wound Culture - Final Escherichia coli Proteus mirabilis#2 Proteus mirabilis Vancomycin Resist. E. faecium 08/18/19 16:10 Wound - Aerobic & Anaerobic Swabs Anaerobic Culture - Final No anaerobic bacteria isolated. 08/19/19 16:06 Tissue - Sacral Gram Stain - Final 08/19/19 16:06 Tissue - Sacral Wound Culture - Preliminary Providencia stuartii Acinetobacter baumannii comple Vancomycin Resist. E. faecium 08/19/19 16:06 Tissue - Sacral Anaerobic Culture - Preliminary Checking for anaerobes, further studies to follow. Inpatient E&M: 75139 Subs Hosp L2
[2019-08-24 07:49] LABS: Absolute Lymphocyte Count 1.85 X10^3/uL (0.83-4.51); Absolute Neutrophil Count 7.2 X10^3/uL (2.0-7.7); Basophil# 0.06 X10^3/uL; Basophil% 0.6 % (0-1); Hematocrit 29.2 % (40-54); Hemoglobin 8.7 g/dL (13.0-16.5); Lymphocyte # 1.85 X10^3/ul (4.0); Mean Corp Hgb Conc 29.8 g/dL (32-36); Mean Corpuscular Hgb 28.9 pg (27.0-32.0); Mean Platelet Vol. 9.6 fl (6.2-12.0); Monocyte# 1.06 X10^3/uL; Monocyte% 10.3 % (0-10); NRBC Flagged by Analyzer 0 % (0-5); Neutrophil # 7.19 X10^3/uL (2.7-7.7); Platelet Count 340 K/mm3 (150-450); RBC Distribution Width CV 17.1 % (11.6-14.6); RBC Distribution Width SD 60.4 fl (35.1-43.9); Red Blood Count 3.01 M/mm3 (4.6-6.2); White Blood Count 10.3 K/mm3 (4.4-11.0)
--- NOTE | 2019-08-24 08:36 | PN.SURG_ITS ---
Patient Problems: Active and Suspected Problems (Last Updated 12/07/17 @ 08:57 by Shira Conte) Cecum perforation (Acute) Severe sepsis (Acute) Sacral wound (Acute) UTI (urinary tract infection) (Acute) Subjective: pt still confused, mumbling mostly- occ words, lala TF at 30 cc/hr - Physical Exam Vitals/I&O's: Vital Signs Temp Pulse Resp BP Pulse Ox 98.6 F 95 20 H 126/59 H 95 08/24/19 02:57 08/24/19 04:00 08/24/19 02:57 08/24/19 02:57 08/24/19 07:22 Oxygen Flow Rate (L/min) 2 Oxygen Delivery Method Nasal Cannula Weight: 284 lb 2.813 oz Body Mass Index (BMI) 41.8 Finger Stick Blood Glucose 191 Intake and Output for Last 24 Hours 08/22/19 08/23/19 08/24/19 23:59 23:59 23:59 Intake Total 1534.5 / 1534.5 1952.5 / 1952.5 1277.5 / 1277.5 Output Total 1950 / 2100 2160 / 2160 1200 / 1200 Balance -415.5 / -565.5 -207.5 / -207.5 77.5 / 77.5 General: Confused Abdomen: Soft, - - Incisions clean dry and intact with dee, colostomy with liquid stool, no peritoneal signs Microbiology Past 72 Hours 08/18/19 11:33 Blood Culture (Wb) - Arm Right Blood Culture - Final No growth in 5 days. 08/18/19 16:10 Wound - Aerobic & Anaerobic Swabs Gram Stain - Final 08/18/19 16:10 Wound - Aerobic & Anaerobic Swabs Wound Culture - Final Escherichia coli Proteus mirabilis#2 Proteus mirabilis Vancomycin Resist. E. faecium 08/18/19 16:10 Wound - Aerobic & Anaerobic Swabs Anaerobic Culture - Final No anaerobic bacteria isolated. 08/19/19 16:06 Tissue - Sacral Gram Stain - Final 08/19/19 16:06 Tissue - Sacral Wound Culture - Preliminary Providencia stuartii Acinetobacter baumannii comple Vancomycin Resist. E. faecium 08/19/19 16:06 Tissue - Sacral Anaerobic Culture - Preliminary Checking for anaerobes, further studies to follow. 08/19/19 16:06 Tissue - Sacral Gram Stain - Final 08/19/19 16:06 Tissue - Sacral Wound Culture - Final Escherichia coli Proteus mirabilis Providencia stuartii Meth. resistant Staph. aureus 08/19/19 16:06 Tissue - Sacral Anaerobic Culture - Preliminary Checking for anaerobes, further studies to follow. 08/18/19 11:45 Blood Culture (Wb) - Pic Blood Culture - Final Enterobacter cloacae complex Enterobacter cloacae complex#2 Staphylococcus epidermidis 08/19/19 12:50 Blood Culture (Wb) - Pic Blood Culture - Preliminary No growth in 48 hours. Laboratory Results 08/23/19 12:24: POC Glucose 98 08/23/19 17:44: POC Glucose 93 08/24/19 07:40: Sodium Pending, Potassium Pending, Chloride Pending, Carbon Dioxide Pending, Anion Gap Pending, BUN Pending, Creatinine Pending, Est GFR (MDRD) Af Amer Pending, Est GFR (MDRD) Non-Af Pending, BUN/Creatinine Ratio Pending, Glucose Pending, Calcium Pending, Magnesium Pending, Total Bilirubin Pending, AST Pending, ALT Pending, Alkaline Phosphatase Pending, Total Protein Pending, Albumin Pending 08/24/19 07:40: WBC 10.3, RBC 3.01 L, Hgb 8.7 L, Hct 29.2 L, MCV 97.0 H, MCH 28.9, MCHC 29.8 L, RDW Std Deviation 60.4 H, RDW Coeff of Tio 17.1 H, Plt Count 340, MPV 9.6, Immature Gran % (Auto) 1.100 H, Neut % (Auto) 70.0, Lymph % (Auto) 18.0 L, [place] % (Auto) 10.3 H, Eos % (Auto) 0.0, Baso % (Auto) 0.6, Absolute Neuts (auto) 7.2, Absolute Lymphs (auto) 1.85, Nucleated RBC % 0 08/24/19 07:40: Ammonia Pending Current Medications Acetaminophen (Tylenol Liquid) 650 mg GT Q6H PRN PRN PRN Reason: Pain Score 1-10/10 Last Admin: 08/23/19 23:00 Dose: 650 mg Documented by: Aspirin (Aspirin, Baby) 81 mg GT DAILY [facility] Last Admin: 08/23/19 10:14 Dose: 81 mg Documented by: Atorvastatin Calcium (Lipitor) 80 mg GT QHS [facility] Last Admin: 08/23/19 23:02 Dose: 80 mg Documented by: Calamine/Phenol (Calmoseptine Ointment) 1 applic TOPICAL TID [facility]; Protocol Last Admin: 08/24/19 05:57 Dose: 1 applicatio Documented by: Dextrose (D50w Syringe) 0 gm IV X1 PRN; Protocol PRN Reason: Hypoglycemia Diazepam (Valium) 5 mg GT Q6H PRN PRN PRN Reason: SPASMS Diltiazem HCl (Cardizem) 60 mg GT Q8 [facility] Last Admin: 08/24/19 05:58 Dose: 60 mg Documented by: Docusate Sodium (Colace Syrup) 100 mg GT BID [facility] Last Admin: 08/23/19 23:02 Dose: 100 mg Documented by: Enoxaparin Sodium (Lovenox) 40 mg SC DAILY [facility] Last Admin: 08/23/19 10:14 Dose: 40 mg Documented by: Famotidine (Pepcid) 20 mg GT DAILY [facility] Last Admin: 08/23/19 10:14 Dose: 20 mg Documented by: Fenofibrate (Tricor) 145 mg GT DAILY [facility] Last Admin: 08/23/19 10:14 Dose: 145 mg Documented by: Folic Acid (Folic Acid) 1 mg GT DAILY [facility] Last Admin: 08/23/19 10:14 Dose: 1 mg Documented by: Glucagon () 1 mg IM .X1 PRN PRN Reason: Hypoglycemia Meropenem 1 gm/ Sodium (Chloride) 120 mls @ 33 mls/hr IV Q8 [facility] Last Admin: 08/24/19 06:01 Dose: 33 mls/hr Documented by: Sodium Chloride () 250 mls @ 15 mls/hr IV .[id number] PRN PRN Reason: Saline Flush Last Infusion: 08/23/19 11:24 Dose: Infused Documented by: Sodium Chloride () 250 mls @ 15 mls/hr IV .[id number] PRN PRN Reason: Additional IVPB Infusion Eravacycline 125 mg/ Sodium (Chloride) 262.5 mls @ 262.5 mls/hr IV Q12 [facility] Last Infusion: 08/24/19 00:32 Dose: Infused Documented by: Valproic Acid 750 mg/ Dextrose 57.5 mls @ 50 mls/hr IV Q8 [facility] Last Admin: 08/24/19 06:01 Dose: 50 mls/hr Documented by: Lactose (Pivot 1.5 Yousuf) 1,000 mls @ 10 mls/hr GT .Q48H [facility] Last Admin: 08/22/19 09:48 Dose: 10 mls/hr Documented by: Insulin Human Lispro (Humalog Kwikpen (Bkc)) 0 unit SC Q6H [facility]; Protocol Last Admin: 08/24/19 06:20 Dose: Not Given Documented by: Lactobacillus Acidophilus (Acidophilus) 2 tablet GT DAILY [facility] Last Admin: 08/23/19 10:14 Dose: 2 tablet Documented by: Linezolid (Zyvox) 600 mg GT BID [facility] Last Admin: 08/23/19 23:03 Dose: 600 mg Documented by: Metoprolol Tartrate (Lopressor (Beta Dana)) 100 mg GT BID [facility] Last Admin: 08/23/19 23:03 Dose: 100 mg Documented by: Morphine Sulfate () 1 mg IV Q3H PRN PRN PRN Reason: Pain Score 6-10/10 Last Admin: 08/23/19 14:16 Dose: 1 mg Documented by: Nutritional Formula (Mike - [place] Flavor) 1 packet GT BID [facility] Last Admin: 08/23/19 22:59 Dose: 1 packet Documented by: Nystatin (Mycostatin Powder) 1 applic TOPICAL BID [facility]; Protocol Last Admin: 08/23/19 22:59 Dose: 1 applicatio Documented by: Polyethylene Glycol (Miralax) 17 gm GT DAILY [facility] Last Admin: 08/23/19 10:07 Dose: 17 gm Documented by: Promethazine HCl (Phenergan Tablet) 25 mg GT Q4H PRN PRN PRN Reason: NAUSEA/VOMITING Sodium Chloride () 10 - 40 ml IV UD PRN PRN Reason: SALINE FLUSH Last Admin: 08/23/19 14:16 Dose: 10 ml Documented by: Sodium Hypochlorite (Dakins Solution 0.25% (1/2 Strength)) 1 applic TOPICAL BID [facility]; Protocol Last Admin: 08/23/19 22:58 Dose: 1 applicatio Documented by: Medical Necessity - Tobacco Use Smoking Status: Current every day smoker Assessment/Plan All Active Problems (Last Updated 12/07/17 @ 08:57 by Shira Conte) Cecum perforation (Acute) Multiple drug resistant Acinetobacter infection (Acute) Methicillin resistant Staphylococcus aureus infection (Acute) Severe sepsis (Acute) Sacral wound (Acute) UTI (urinary tract infection) (Acute) PAD (peripheral artery disease) (Acute) 59-year-old male status post end colostomy, ileocecectomy 1. Patient still confused continue tube feeds, patient currently tolerating at 30 cc an hour 2. Patient's still having good colostomy output, incisions clean dry and intact. Janice Manzano M.D. Pager: [phone] [facility] [address] [place] [address], [address] [place] [address] Office: [phone]
[2019-08-24 09:14] LABS: ALB/GLOB Ratio 0.3 RATIO (0.9-2.4); AST(SGOT) 223 U/L (15-37); Alanine Aminotransfer ALT/SGPT 158 U/L (16-61); Albumin, Serum 1.5 g/dL (3.2-5.0); Alkaline Phosphatase 273 U/L (45-117); Anion Gap 7 (5-15); BUN 33 mg/dL (7-18); Calcium,Total 8.2 mg/dL (8.5-10.1); Chloride 123 mmol/L (98-107); Creatinine, Serum 0.89 mg/dL (0.70-1.30); EST Glomerular Filtration Rate 93 mL/min (>60); Est Glom Filt Rate - Afr Amer 113 mL/min (>60); Estimated Creatinine Clearance 90.47 ml/min; Globulin 5.3 g/dL (2.2-4.2); Glucose 108 mg/dL (74-106); Magnesium 2.5 mg/dL (1.6-2.6); Potassium 3.9 mmol/L (3.5-5.1); Protein, Total 6.8 g/dL (6.4-8.2); Sodium Level 154 mmol/L (136-145)
[2019-08-24] MEDS: DAKIN'S SOL HALF STRENGTH (=0.25%) 1 APPLIC TOPICAL ×2 (10:37→23:46)
[2019-08-24] MEDS: Docusate Sodium 100 MG/10 ML UDC GT ×2 (10:50→21:26)
[2019-08-24] MEDS: Aspirin 81 MG TAB.CHEW GT (10:50)
[2019-08-24] MEDS: Metoprolol Tartrate 100 MG Tablet GT ×2 (10:52→20:00)
[2019-08-24] MEDS: Folic Acid 1 MG Tablet GT (10:52)
[2019-08-24] MEDS: Nystatin Powder 15gm Bottle 1 APPLIC TOPICAL ×2 (10:53→21:35)
[2019-08-24] MEDS: Polyethylene Glycol 3350 17 GM PACKET GT (10:53)
[2019-08-24] MEDS: Enoxaparin 40 MG/0.4 ML Syringe SC (10:53)
[2019-08-24] MEDS: Famotidine 20 MG Tablet GT (10:54)
[2019-08-24] MEDS: Fenofibrate 145 MG Tablet GT (10:55)
[2019-08-24] MEDS: Linezolid 600 MG Tablet GT ×2 (10:55→21:35)
[2019-08-24] MEDS: Pivot 1.5 Cal 1,000 ML 10 ML GT (12:27)
--- NOTE | 2019-08-24 12:29 | NURSING ---
pivot feed increased to 40ml/hr, per order.
[2019-08-24 17:03] LABS: Bedside Glucose 100 mg/dL (70-110)
[2019-08-24 17:03] LABS: Bedside Glucose 99 mg/dL (70-110)
[2019-08-24] MEDS: Morphine 2 MG/ML Syringe 1 MG IV (17:14)
[2019-08-24] MEDS: 0.9% Saline Lock 10 ML Syringe IV (17:14)
[2019-08-24 17:32] LABS: Bedside Glucose 89 mg/dL (70-110)
[2019-08-24 17:32] LABS: Bedside Glucose 41 mg/dL (70-110)
[2019-08-24 17:46] LABS: Bedside Glucose 111 mg/dL (70-110)
[2019-08-24] MEDS: Acetaminophen 650 MG/20 ML UDC GT (19:07)
[2019-08-24 19:20] LABS: Anion Gap 8 (5-15); BUN 29 mg/dL (7-18); BUN/Creat Ratio 33.2 RATIO (10-20); Calcium,Total 8.1 mg/dL (8.5-10.1); Chloride 120 mmol/L (98-107); Creatinine, Serum 0.87 mg/dL (0.70-1.30); EST Glomerular Filtration Rate 95 mL/min (>60); Est Glom Filt Rate - Afr Amer 115 mL/min (>60); Estimated Creatinine Clearance 92.55 ml/min; Glucose 121 mg/dL (74-106); Potassium 3.7 mmol/L (3.5-5.1); Sodium Level 153 mmol/L (136-145)
[2019-08-24 19:33] LABS: Lactic Acid 3.7 mmol/L (0.4-1.9)
--- NOTE | 2019-08-24 19:58 | NURSING ---
cps notified of stat abgs, xray notified of stat chest xray to be done prior to transfer per dr. mejia rn with pt to hang ivf bolus per order and give cardizem and lopressor early per Dr. Rossi. Nursing jewel supervisor aware of order to transfer to unit she will obtain bed
--- NOTE | 2019-08-24 20:00 | RAD_ITS ---
STUDY: X-RAY CHEST REASON FOR EXAM: Male, 59 years old. Dyspnea TECHNIQUE: Single AP portable view of the chest. COMPARISON: Previous study of 08/21/2019 FINDINGS: There has been interval removal of a previously seen endotracheal tube. A nasogastric tube is seen with tip projecting over the mid esophageal region. There is a right-sided PICC line with tip projecting over the distal SVC. There are bibasilar infiltrates appearing similar to the previous study. There is a limited inspiration. There is no demonstrated pleural abnormality. The heart size is within normal limits. Status post sternotomy changes are noted. Normal mediastinum and tony. Normal visualized pulmonary arteries. There are calcified plaques of the aortic arch. Normal visualized thoracic spine. Normal visualized ribs, clavicles, and shoulders. There is no demonstrated abnormality of the visualized soft tissue structures of the upper abdomen. RAD/Chest 1 View (Portable) IMPRESSION: Right-sided PICC line noted appearing in adequate position. There has been interval removal of endotracheal tube seen on the previous study. A nasogastric tube is noted with tip at the level of the mid esophagus. Further advancement is recommended. Bibasilar infiltrates are again noted stable in the interval. There is a poor inspiration. Electronically Signed: Shashi Sexton MD at 20:26 EDT , Service support ,
--- NOTE | 2019-08-24 20:36 | NURSING ---
jean pt primary contact notified of change in condition and transfer to icu rm 5. pt notified that jean is aware. primary rn and step down specialist transfer pt to icu
[2019-08-24] MEDS: Atorvastatin Calcium 80 MG Tablet GT (21:34)
--- NOTE | 2019-08-24 21:51 | PCM.HOSP.N ---
Hospitalist Note Given ongoing tachycardia, repeat LA elevated above prior, transitioning back to the ICU. Also, NG on CXR obtained secondary to increased RR concurrently with noted NGT in mid esophagus therefore will advance and repeat KUB. Maintained on aggressive BSA.
[2019-08-24 22:01] LABS: Base Excess 2 mmol/L (-2 to +2); PO2 94 mmHG (75-100); SO2 98 % (95-99); Total Carbon Dioxide 26 mmol/L; pCO2 32.1 mmHg (35-45)
[2019-08-24 22:02] LABS: Blood Gas Specimen Type ART
[2019-08-24 22:03] LABS: Allen Test POS; O2 Delivery Device Nasal Can; SITE R RADIAL
[2019-08-24 22:04] LABS: Time Given 2025
--- NOTE | 2019-08-24 22:25 | RAD_ITS ---
STUDY: X-RAY - ABDOMEN/PELVIS REASON FOR EXAM: Male, 59 years old. Replace NG, obtained after repositioning TECHNIQUE: Single AP view of the abdomen / pelvis. COMPARISON: Previous study of earlier this date 8:07 PM FINDINGS: A nasogastric tube is noted with tip projecting over the left upper quadrant of the abdomen. Normal visualized lung bases. There is an unremarkable bowel gas pattern. There is no demonstrated free abdominal air. The visualized liver, spleen and kidneys are grossly normal in size and morphology. Normal soft tissue structures. There are degenerative changes of the visualized thoracolumbar spine. RAD/Abdomen Single View (Portable) IMPRESSION: Nasogastric tube noted appearing in adequate position at this time. No evidence of ileus or obstruction. Electronically Signed: Shashi Sexton MD at 23:31 EDT , Service support ,
[2019-08-24 23:02] LABS: Reflex Lactate? Y
[2019-08-24 23:46] LABS: Bedside Glucose 119 mg/dL (70-110)
[2019-08-24 23:59] LABS: Lactic Acid 3.6 mmol/L (0.4-1.9)
[2019-08-25] VITALS (25 sets, daily range): BP systolic 94–128; BP diastolic 48–79; PULSE 83–106; RESP 18–42; TEMP 37.9–38.8; O2SAT 95–100
[2019-08-25] MEDS: Menthol/Lanolin/Calamine/Znox 113 GM Tube 1 APPLIC TOPICAL ×3 (06:24→21:56)
[2019-08-25] MEDS: dilTIAZem 30 MG Tablet 60 MG GT ×2 (06:25→14:03)
[2019-08-25 06:40] LABS: Bedside Glucose 142 mg/dL (70-110)
[2019-08-25 06:42] LABS: Absolute Lymphocyte Count 1.85 X10^3/uL (0.83-4.51); Absolute Neutrophil Count 7.6 X10^3/uL (2.0-7.7); Basophil# 0.03 X10^3/uL; Basophil% 0.3 % (0-1); Eosinophil# 0.02 X10^3/uL; Eosinophils% 0.2 % (0-5); Hematocrit 28.3 % (40-54); Hemoglobin 8.4 g/dL (13.0-16.5); Lymphocyte # 1.85 X10^3/ul (4.0); Lymphocyte % 17.5 % (19-41); Mean Corp Hgb Conc 29.7 g/dL (32-36); Mean Corpuscular Hgb 29.4 pg (27.0-32.0); Mean Platelet Vol. 9.7 fl (6.2-12.0); Monocyte# 0.95 X10^3/uL; NRBC Flagged by Analyzer 0 % (0-5); Neutrophil # 7.64 X10^3/uL (2.7-7.7); POSITIVE MORPHOLOGY YES; Platelet Count 288 K/mm3 (150-450); RBC Distribution Width CV 17.1 % (11.6-14.6); Red Blood Count 2.86 M/mm3 (4.6-6.2); White Blood Count 10.6 K/mm3 (4.4-11.0)
[2019-08-25 06:44] LABS: Differential Indicated SCAN CRITERIA MET
[2019-08-25 07:04] LABS: Differential Comment SCANNED; Reactive Lymphocyte 1+
[2019-08-25 07:08] LABS: AST(SGOT) 190 U/L (15-37); Alanine Aminotransfer ALT/SGPT 129 U/L (16-61); Albumin, Serum 1.5 g/dL (3.2-5.0); Alkaline Phosphatase 297 U/L (45-117); Anion Gap 7 (5-15); BUN 29 mg/dL (7-18); Bilirubin, Direct 0.77 mg/dL (0.00-0.30); Calcium,Total 7.8 mg/dL (8.5-10.1); Chloride 119 mmol/L (98-107); EST Glomerular Filtration Rate 105 mL/min (>60); Est Glom Filt Rate - Afr Amer 127 mL/min (>60); Estimated Creatinine Clearance 100.65 ml/min; Globulin 5.2 g/dL (2.2-4.2); Glucose 153 mg/dL (74-106); Magnesium 2.4 mg/dL (1.6-2.6); Potassium 3.6 mmol/L (3.5-5.1); Protein, Total 6.7 g/dL (6.4-8.2); Sodium Level 151 mmol/L (136-145)
--- NOTE | 2019-08-25 07:30 | PCM.PN.SRG ---
Patient Problems: Active and Suspected Problems (Last Updated 08/25/19 @ 08:[address] Samina Heredia MD) Cecum perforation (Acute) Severe sepsis (Acute) Sacral wound (Acute) UTI (urinary tract infection) (Acute) Subjective: Patient was tachycardic and tachypneic was moved back to the ICU yesterday, still confused lactic acid also elevated, patient is having bowel function and tolerating tube feeds at 50 cc an hour - Physical Exam Vitals/I&O's: Vital Signs Temp Pulse Resp BP Pulse Ox 101.8 F H 93 18 128/63 H 95 08/25/19 00:00 08/25/19 07:29 08/25/19 00:00 08/25/19 00:00 08/25/19 00:00 Oxygen Flow Rate (L/min) 3 Oxygen Delivery Method Nasal Cannula Weight: 285 lb 7.978 oz Body Mass Index (BMI) 41.8 Finger Stick Blood Glucose 191 Intake and Output for Last 24 Hours 08/23/19 08/24/19 08/25/19 23:59 23:59 23:59 Intake Total 1952.5 / 1952.5 5711.00 / 5711.00 1175 / 1175 Output Total 2160 / 2160 2950 / 3550 1275 / 1275 Balance -207.5 / -207.5 2761.00 / 2161.00 -100 / -100 General: Confused Abdomen: Soft, - - Colostomy with stool in bag, small part of ostomy dusky otherwise mostly intact, incisions clean dry and intact with dee Microbiology Past 72 Hours 08/19/19 12:50 Blood Culture (Wb) - Pic Blood Culture - Final No growth in 5 days. 08/18/19 11:33 Blood Culture (Wb) - Arm Right Blood Culture - Final No growth in 5 days. 08/18/19 16:10 Wound - Aerobic & Anaerobic Swabs Gram Stain - Final 08/18/19 16:10 Wound - Aerobic & Anaerobic Swabs Wound Culture - Final Escherichia coli Proteus mirabilis#2 Proteus mirabilis Vancomycin Resist. E. faecium 08/18/19 16:10 Wound - Aerobic & Anaerobic Swabs Anaerobic Culture - Final No anaerobic bacteria isolated. 08/19/19 16:06 Tissue - Sacral Gram Stain - Final 08/19/19 16:06 Tissue - Sacral Wound Culture - Preliminary Providencia stuartii Acinetobacter baumannii comple Vancomycin Resist. E. faecium 08/19/19 16:06 Tissue - Sacral Anaerobic Culture - Preliminary Checking for anaerobes, further studies to follow. 08/19/19 16:06 Tissue - Sacral Gram Stain - Final 08/19/19 16:06 Tissue - Sacral Wound Culture - Final Escherichia coli Proteus mirabilis Providencia stuartii Meth. resistant Staph. aureus 08/19/19 16:06 Tissue - Sacral Anaerobic Culture - Preliminary Checking for anaerobes, further studies to follow. 08/18/19 11:45 Blood Culture (Wb) - Pic Blood Culture - Final Enterobacter cloacae complex Enterobacter cloacae complex#2 Staphylococcus epidermidis Laboratory Results 08/24/19 00:50: POC Glucose 41 L* 08/24/19 00:53: POC Glucose 89 08/24/19 06:19: POC Glucose 99 08/24/19 07:40: Sodium 154 H, Potassium 3.9, Chloride 123 H, Carbon Dioxide 24.0, Anion Gap 7, BUN 33 H, Creatinine 0.89, Estim Creat Clear Calc 90.47, Est GFR (MDRD) Af Amer 113, Est GFR (MDRD) Non-Af 93, BUN/Creatinine Ratio 37.0 H, Glucose 108 H, Calcium 8.2 L, Magnesium 2.5, Total Bilirubin 1.10 H, AST 223 H, ALT 158 H, Alkaline Phosphatase 273 H, Total Protein 6.8, Albumin 1.5 L, Globulin 5.3 H, Albumin/Globulin Ratio 0.3 L 08/24/19 07:40: WBC 10.3, RBC 3.01 L, Hgb 8.7 L, Hct 29.2 L, MCV 97.0 H, MCH 28.9, MCHC 29.8 L, RDW Std Deviation 60.4 H, RDW Coeff of Tio 17.1 H, Plt Count 340, MPV 9.6, Immature Gran % (Auto) 1.100 H, Neut % (Auto) 70.0, Lymph % (Auto) 18.0 L, Bollinger % (Auto) 10.3 H, Eos % (Auto) 0.0, Baso % (Auto) 0.6, Absolute Neuts (auto) 7.2, Absolute Lymphs (auto) 1.85, Nucleated RBC % 0 08/24/19 07:40: Ammonia 50.0 H 08/24/19 11:36: POC Glucose 100 08/24/19 17:37: POC Glucose 111 H 08/24/19 18:55: Sodium 153 H, Potassium 3.7, Chloride 120 H, Carbon Dioxide 25.0, Anion Gap 8, BUN 29 H, Creatinine 0.87, Estim Creat Clear Calc 92.55, Est GFR (MDRD) Af Amer 115, Est GFR (MDRD) Non-Af 95, BUN/Creatinine Ratio 33.2 H, Glucose 121 H, Calcium 8.1 L 08/24/19 18:55: Lactic Acid 3.7 H* 08/24/19 20:25: Specimen Type ART, Sample Site R RADIAL, pH 7.50 H, Bicarbonate Actual 25.0, POC Total CO2 26, Base Excess 2, O2 Saturation 98, ABG pCO2 32.1 L, ABG pO2 94, Nacho Test POS, O2 Delivery Device Nasal Can, Liter Flow 3.0, Blood Gas Notified Whom [facility] , Blood Gas Notified Time 202408/24/19 23:05: Lactic Acid 3.6 H* 08/24/19 23:22: POC Glucose 119 H 08/25/19 06:15: POC Glucose 142 H 08/25/19 06:30: WBC 10.6, RBC 2.86 L, Hgb 8.4 L, Hct 28.3 L, MCV 99.0 H, MCH 29.4, MCHC 29.7 L, RDW Std Deviation 62.0 H, RDW Coeff of Tio 17.1 H, Plt Count 288, MPV 9.7, Immature Gran % (Auto) 1.000 H, Neut % (Auto) 72.0 H, Lymph % (Auto) 17.5 L, Bollinger % (Auto) 9.0, Eos % (Auto) 0.2, Baso % (Auto) 0.3, Absolute Neuts (auto) 7.6, Absolute Lymphs (auto) 1.85, Nucleated RBC % 0, Differential Comment SCANNED, Reactive Lymphocytes 1+ 08/25/19 06:30: Sodium 151 H, Potassium 3.6, Chloride 119 H, Carbon Dioxide 25.0, Anion Gap 7, BUN 29 H, Creatinine 0.80, Estim Creat Clear Calc 100.65, Est GFR (MDRD) Af Amer 127, Est GFR (MDRD) Non-Af 105, BUN/Creatinine Ratio 36.0 H, Glucose 153 H, Calcium 7.8 L, Magnesium 2.4, Total Bilirubin 1.00, Direct Bilirubin 0.77 H, AST 190 H, ALT 129 H, Alkaline Phosphatase 297 H, Total Protein 6.7, Albumin 1.5 L, Globulin 5.2 H Current Medications Acetaminophen (Tylenol Liquid) 650 mg GT Q6H PRN PRN PRN Reason: Pain Score 1-1010 Last Admin: 08/24/19 19:07 Dose: 650 mg Documented by: Aspirin (Aspirin, Baby) 81 mg GT DAILY [facility] Last Admin: 08/24/19 10:50 Dose: 81 mg Documented by: Atorvastatin Calcium (Lipitor) 80 mg GT QHS [facility] Last Admin: 08/24/19 21:34 Dose: 80 mg Documented by: Calamine/Phenol (Calmoseptine Ointment) 1 applic TOPICAL TID [facility]; Protocol Last Admin: 08/25/19 06:24 Dose: 1 applicatio Documented by: Dextrose (D50w Syringe) 0 gm IV X1 PRN; Protocol PRN Reason: Hypoglycemia Diazepam (Valium) 5 mg GT Q6H PRN PRN PRN Reason: SPASMS Diltiazem HCl (Cardizem) 60 mg GT Q8 [facility] Last Admin: 08/25/19 06:25 Dose: 60 mg Documented by: Docusate Sodium (Colace Syrup) 100 mg GT BID [facility] Last Admin: 08/24/19 21:26 Dose: 100 mg Documented by: Enoxaparin Sodium (Lovenox) 40 mg SC DAILY [facility] Last Admin: 08/24/19 10:53 Dose: 40 mg Documented by: Famotidine (Pepcid) 20 mg GT DAILY [facility] Last Admin: 08/24/19 10:54 Dose: 20 mg Documented by: Fenofibrate (Tricor) 145 mg GT DAILY [facility] Last Admin: 08/24/19 10:55 Dose: 145 mg Documented by: Folic Acid (Folic Acid) 1 mg GT DAILY [facility] Last Admin: 08/24/19 10:52 Dose: 1 mg Documented by: Glucagon () 1 mg IM .X1 PRN PRN Reason: Hypoglycemia Meropenem 1 gm/ Sodium (Chloride) 120 mls @ 33 mls/hr IV Q8 [facility] Last Admin: 08/25/19 06:26 Dose: 33 mls/hr Documented by: Sodium Chloride () 250 mls @ 15 mls/hr IV .[id number] PRN PRN Reason: Saline Flush Last Infusion: 08/23/19 11:24 Dose: Infused Documented by: Sodium Chloride () 250 mls @ 15 mls/hr IV .[id number] PRN PRN Reason: Additional IVPB Infusion Eravacycline 125 mg/ Sodium (Chloride) 262.5 mls @ 262.5 mls/hr IV Q12 [facility] Last Infusion: 08/24/19 23:27 Dose: Infused Documented by: Valproic Acid 750 mg/ Dextrose 57.5 mls @ 50 mls/hr IV Q8 [facility] Last Admin: 08/25/19 06:21 Dose: 50 mls/hr Documented by: Lactose (Pivot 1.5 Yousuf) 1,000 mls @ 10 mls/hr GT .Q48H [facility] Last Admin: 08/24/19 12:27 Dose: 10 mls/hr Documented by: Dextrose () 1,000 mls @ 150 mls/hr IV .Q6H40M [facility] Last Admin: 08/25/19 06:20 Dose: 150 mls/hr Documented by: Insulin Human Lispro (Humalog Kwikpen (Bkc)) 0 unit SC Q6H [facility]; Protocol Last Admin: 08/25/19 06:25 Dose: Not Given Documented by: Lactobacillus Acidophilus (Acidophilus) 2 tablet GT DAILY [facility] Last Admin: 08/24/19 10:49 Dose: 2 tablet Documented by: Linezolid (Zyvox) 600 mg GT BID [facility] Last Admin: 08/24/19 21:35 Dose: 600 mg Documented by: Metoprolol Tartrate (Lopressor (Beta Dana)) 100 mg GT BID [facility] Last Admin: 08/24/19 20:00 Dose: 100 mg Documented by: Morphine Sulfate () 1 mg IV Q3H PRN PRN PRN Reason: Pain Score 6-10/10 Last Admin: 08/24/19 17:14 Dose: 1 mg Documented by: Nutritional Formula (Mike - Sherman Flavor) 1 packet GT BID [facility] Last Admin: 08/24/19 21:33 Dose: 1 packet Documented by: Nystatin (Mycostatin Powder) 1 applic TOPICAL BID [facility]; Protocol Last Admin: 08/24/19 21:35 Dose: 1 applicatio Documented by: Polyethylene Glycol (Miralax) 17 gm GT DAILY [facility] Last Admin: 08/24/19 10:53 Dose: 17 gm Documented by: Promethazine HCl (Phenergan Tablet) 25 mg GT Q4H PRN PRN PRN Reason: NAUSEA/VOMITING Sodium Chloride () 10 - 40 ml IV UD PRN PRN Reason: SALINE FLUSH Last Admin: 08/24/19 17:14 Dose: 10 ml Documented by: Sodium Hypochlorite (Dakins Solution 0.25% (1/2 Strength)) 1 applic TOPICAL BID [facility]; Protocol Last Admin: 08/24/19 23:46 Dose: 1 applicatio Documented by: Medical Necessity - Tobacco Use Smoking Status: Current every day smoker Assessment/Plan All Active Problems (Last Updated 08/25/19 @ 08:[address] Samina Heredia MD) Cecum perforation (Acute) Multiple drug resistant Acinetobacter infection (Acute) Methicillin resistant Staphylococcus aureus infection (Acute) Severe sepsis (Acute) Sacral wound (Acute) UTI (urinary tract infection) (Acute) 59-year-old male status post end colostomy, ileocecectomy, sepsis due to infected sacral wound Continue tube feeds per nutrition recommendations, till patient's confusion improves. Good colostomy output-continue to monitor colostomy Unsure of the cause of the lactic acidosis, patient's abdomen is soft unable to assess pain pressure as he is quite confused. Will discuss with ICU. Continue to monitor. Janice Manzano M.D. Pager: [phone] [facility] [address] [place] [address], [address] [place] [address] Office: [phone]
--- NOTE | 2019-08-25 08:09 | PN_ITS ---
Subjective: Patient previously transferred to the floor, but was sent back to the intensive care unit overnight secondary to ongoing tachycardia and elevated lactic acid. NG was high on chest x-ray and was receiving continuous feeds. Patient is a very poor historian and is unable to provide any additional information at this time. Objective: Chest x-ray showed the NG in the midesophagus, close to the karoline. KUB shows appropriate positioning following advancement over 10 cm. General: Alert, Cooperative, - - Mild distress. Morbidly obese. HEENT: Atraumatic, PERRLA, EOMI, Normocephalic, - - No scleral icterus or injection noted Oral: Moist Mucosa, No Gingival or Mucosal Lesions/ Ulcerations Neck: Supple, No JVD, No Nodes, Trachea Midline Lungs: No rhonchi, No wheeze, No rales, Diminished, - - Symmetric expansion. No dullness to percussion. Cardiovascular: Regular rate, Regular Rhythm, Normal S1, Normal S2, No murmurs, No rub noted, No Gallop Abdomen: Bowel Sounds Present, Soft, Non Tender, Non-Distended, Obese, - - Ostomies are clean, dry and intact. Extremities: No clubbing, No cyanosis Skin: Incision, - - Sacral wound was not evaluated Musculoskeletal: No Tenderness to Palpation of Joints or Extremities Lymphatic: No Cervical, Supraclavicular, or Inguinal Adenopathy Neurological: Cranial nerves II-XII grossly intact, Neuro grossly intact Psych/Mental Status: Flat Affect Vital Signs Temp Pulse Resp BP Pulse Ox 38.8 C H 93 18 128/63 H 95 08/25/19 00:00 08/25/19 07:29 08/25/19 00:00 08/25/19 00:00 08/25/19 00:00 Oxygen Flow Rate (L/min) 3 Oxygen Delivery Method Nasal Cannula Weight: 129.5 kg Body Mass Index (BMI) 41.8 Finger Stick Blood Glucose 191 Intake and Output for Last 24 Hours 08/23/19 08/24/19 08/25/19 23:59 23:59 23:59 Intake Total 1952.5 / 1952.5 5711.00 / 5711.00 1175 / 1175 Output Total 2160 / 2160 2950 / 3550 1275 / 1275 Balance -207.5 / -207.5 2761.00 / 2161.00 -100 / -100 Labs (Last 48 Hours) 08/23/19 08/23/19 08/24/19 12:24 17:44 00:50 WBC RBC Hgb Hct MCV MCH MCHC RDW Std Deviation RDW Coeff of Tio Plt Count MPV Immature Gran % (Auto) Neut % (Auto) Lymph % (Auto) Monroe % (Auto) Eos % (Auto) Baso % (Auto) Absolute Neuts (auto) Absolute Lymphs (auto) Nucleated RBC % Differential Comment Reactive Lymphocytes Specimen Type Sample Site pH Bicarbonate Actual POC Total CO2 Base Excess O2 Saturation ABG pCO2 ABG pO2 Nacho Test O2 Delivery Device Liter Flow Blood Gas Notified Whom Blood Gas Notified Time Sodium Potassium Chloride Carbon Dioxide Anion Gap BUN Creatinine Estim Creat Clear Calc Est GFR (MDRD) Af Amer Est GFR (MDRD) Non-Af BUN/Creatinine Ratio Glucose Lactic Acid Calcium Magnesium Total Bilirubin Direct Bilirubin AST ALT Alkaline Phosphatase Ammonia Total Protein Albumin Globulin Albumin/Globulin Ratio POC Glucose 98 93 41 L* 08/24/19 08/24/19 08/24/19 00:53 06:19 07:40 WBC RBC Hgb Hct MCV MCH MCHC RDW Std Deviation RDW Coeff of Tio Plt Count MPV Immature Gran % (Auto) Neut % (Auto) Lymph % (Auto) Monroe % (Auto) Eos % (Auto) Baso % (Auto) Absolute Neuts (auto) Absolute Lymphs (auto) Nucleated RBC % Differential Comment Reactive Lymphocytes Specimen Type Sample Site pH Bicarbonate Actual POC Total CO2 Base Excess O2 Saturation ABG pCO2 ABG pO2 Nacho Test O2 Delivery Device Liter Flow Blood Gas Notified Whom Blood Gas Notified Time Sodium 154 H Potassium 3.9 Chloride 123 H Carbon Dioxide 24.0 Anion Gap 7 BUN 33 H Creatinine 0.89 Estim Creat Clear Calc 90.47 Est GFR (MDRD) Af Amer 113 Est GFR (MDRD) Non-Af 93 BUN/Creatinine Ratio 37.0 H Glucose 108 H Lactic Acid Calcium 8.2 L Magnesium 2.5 Total Bilirubin 1.10 H Direct Bilirubin AST 223 H ALT 158 H Alkaline Phosphatase 273 H Ammonia Total Protein 6.8 Albumin 1.5 L Globulin 5.3 H Albumin/Globulin Ratio 0.3 L POC Glucose 89 99 08/24/19 08/24/19 08/24/19 07:40 07:40 11:36 WBC 10.3 RBC 3.01 L Hgb 8.7 L Hct 29.2 L MCV 97.0 H MCH 28.9 MCHC 29.8 L RDW Std Deviation 60.4 H RDW Coeff of Tio 17.1 H Plt Count 340 MPV 9.6 Immature Gran % (Auto) 1.100 H Neut % (Auto) 70.0 Lymph % (Auto) 18.0 L Monroe % (Auto) 10.3 H Eos % (Auto) 0.0 Baso % (Auto) 0.6 Absolute Neuts (auto) 7.2 Absolute Lymphs (auto) 1.85 Nucleated RBC % 0 Differential Comment Reactive Lymphocytes Specimen Type Sample Site pH Bicarbonate Actual POC Total CO2 Base Excess O2 Saturation ABG pCO2 ABG pO2 Nacho Test O2 Delivery Device Liter Flow Blood Gas Notified Whom Blood Gas Notified Time Sodium Potassium Chloride Carbon Dioxide Anion Gap BUN Creatinine Estim Creat Clear Calc Est GFR (MDRD) Af Amer Est GFR (MDRD) Non-Af BUN/Creatinine Ratio Glucose Lactic Acid Calcium Magnesium Total Bilirubin Direct Bilirubin AST ALT Alkaline Phosphatase Ammonia 50.0 H Total Protein Albumin Globulin Albumin/Globulin Ratio POC Glucose 100 08/24/19 08/24/19 08/24/19 17:37 18:55 18:55 WBC RBC Hgb Hct MCV MCH MCHC RDW Std Deviation RDW Coeff of Tio Plt Count MPV Immature Gran % (Auto) Neut % (Auto) Lymph % (Auto) Monroe % (Auto) Eos % (Auto) Baso % (Auto) Absolute Neuts (auto) Absolute Lymphs (auto) Nucleated RBC % Differential Comment Reactive Lymphocytes Specimen Type Sample Site pH Bicarbonate Actual POC Total CO2 Base Excess O2 Saturation ABG pCO2 ABG pO2 Nacho Test O2 Delivery Device Liter Flow Blood Gas Notified Whom Blood Gas Notified Time Sodium 153 H Potassium 3.7 Chloride 120 H Carbon Dioxide 25.0 Anion Gap 8 BUN 29 H Creatinine 0.87 Estim Creat Clear Calc 92.55 Est GFR (MDRD) Af Amer 115 Est GFR (MDRD) Non-Af 95 BUN/Creatinine Ratio 33.2 H Glucose 121 H Lactic Acid 3.7 H* Calcium 8.1 L Magnesium Total Bilirubin Direct Bilirubin AST ALT Alkaline Phosphatase Ammonia Total Protein Albumin Globulin Albumin/Globulin Ratio POC Glucose 111 H 08/24/19 08/24/19 08/24/19 20:25 23:05 23:22 WBC RBC Hgb Hct MCV MCH MCHC RDW Std Deviation RDW Coeff of Tio Plt Count MPV Immature Gran % (Auto) Neut % (Auto) Lymph % (Auto) Monroe % (Auto) Eos % (Auto) Baso % (Auto) Absolute Neuts (auto) Absolute Lymphs (auto) Nucleated RBC % Differential Comment Reactive Lymphocytes Specimen Type ART Sample Site R RADIAL pH 7.50 H Bicarbonate Actual 25.0 POC Total CO2 26 Base Excess 2 O2 Saturation 98 ABG pCO2 32.1 L ABG pO2 94 Nacho Test POS O2 Delivery Device Nasal Can Liter Flow 3.0 Blood Gas Notified Whom [facility] Blood Gas Notified Time 2024 Sodium Potassium Chloride Carbon Dioxide Anion Gap BUN Creatinine Estim Creat Clear Calc Est GFR (MDRD) Af Amer Est GFR (MDRD) Non-Af BUN/Creatinine Ratio Glucose Lactic Acid 3.6 H* Calcium Magnesium Total Bilirubin Direct Bilirubin AST ALT Alkaline Phosphatase Ammonia Total Protein Albumin Globulin Albumin/Globulin Ratio POC Glucose 119 H 08/25/19 08/25/19 08/25/19 06:15 06:30 06:30 WBC 10.6 RBC 2.86 L Hgb 8.4 L Hct 28.3 L MCV 99.0 H MCH 29.4 MCHC 29.7 L RDW Std Deviation 62.0 H RDW Coeff of Tio 17.1 H Plt Count 288 MPV 9.7 Immature Gran % (Auto) 1.000 H Neut % (Auto) 72.0 H Lymph % (Auto) 17.5 L Monroe % (Auto) 9.0 Eos % (Auto) 0.2 Baso % (Auto) 0.3 Absolute Neuts (auto) 7.6 Absolute Lymphs (auto) 1.85 Nucleated RBC % 0 Differential Comment SCANNED Reactive Lymphocytes 1+ Specimen Type Sample Site pH Bicarbonate Actual POC Total CO2 Base Excess O2 Saturation ABG pCO2 ABG pO2 Nacho Test O2 Delivery Device Liter Flow Blood Gas Notified Whom Blood Gas Notified Time Sodium 151 H Potassium 3.6 Chloride 119 H Carbon Dioxide 25.0 Anion Gap 7 BUN 29 H Creatinine 0.80 Estim Creat Clear Calc 100.65 Est GFR (MDRD) Af Amer 127 Est GFR (MDRD) Non-Af 105 BUN/Creatinine Ratio 36.0 H Glucose 153 H Lactic Acid Calcium 7.8 L Magnesium 2.4 Total Bilirubin 1.00 Direct Bilirubin 0.77 H AST 190 H ALT 129 H Alkaline Phosphatase 297 H Ammonia Total Protein 6.7 Albumin 1.5 L Globulin 5.2 H Albumin/Globulin Ratio POC Glucose 142 H Microbiology 08/19/19 12:50 Blood Culture (Wb) - Pic Blood Culture - Final No growth in 5 days. 08/18/19 11:33 Blood Culture (Wb) - Arm Right Blood Culture - Final No growth in 5 days. 08/18/19 16:10 Wound - Aerobic & Anaerobic Swabs Gram Stain - Final 08/18/19 16:10 Wound - Aerobic & Anaerobic Swabs Wound Culture - Final Escherichia coli Proteus mirabilis#2 Proteus mirabilis Vancomycin Resist. E. faecium 08/18/19 16:10 Wound - Aerobic & Anaerobic Swabs Anaerobic Culture - Final No anaerobic bacteria isolated. 08/19/19 16:06 Tissue - Sacral Gram Stain - Final 08/19/19 16:06 Tissue - Sacral Wound Culture - Preliminary Providencia stuartii Acinetobacter baumannii comple Vancomycin Resist. E. faecium 08/19/19 16:06 Tissue - Sacral Anaerobic Culture - Preliminary Checking for anaerobes, further studies to follow. Clinical Impression(s) from Imaging Studies Chest X-Ray 08/24/19 20:00 IMPRESSION: Right-sided PICC line noted appearing in adequate position. There has been interval removal of endotracheal tube seen on the previous study. A nasogastric tube is noted with tip at the level of the mid esophagus. Further advancement is recommended. Bibasilar infiltrates are again noted stable in the interval. There is a poor inspiration. Electronically Signed: Shashi Sexton MD at 20:26 EDT , Service support , KUB X-Ray 08/24/19 22:25 IMPRESSION: Nasogastric tube noted appearing in adequate position at this time. No evidence of ileus or obstruction. Electronically Signed: Shashi Sexton MD at 23:31 EDT , Service support , Medical Necessity - Tobacco Use Smoking Status: Current every day smoker Assessment/Plan All Active Problems (Last Updated 12/07/17 @ 08:57 by Shira Conte) Cecum perforation (Acute) Multiple drug resistant Acinetobacter infection (Acute) Methicillin resistant Staphylococcus aureus infection (Acute) Severe sepsis (Acute) Sacral wound (Acute) UTI (urinary tract infection) (Acute) PAD (peripheral artery disease) (Acute) RECOMMENDATIONS: 1. Wean supplemental oxygen to maintain saturations at or above 90%. 2. Tube feeds per surgery 3. Continue antimicrobials per infectious diseases recommendations. 4. Avoid oversedation with opiate pain medications. 5. Continue Depakote and seizure precautions. 6. Continue wound care IMPRESSIONS: 1. Severe sepsis The patient has evidence of gram-negative bacteremia, most likely secondary to hematogenous spread from his sacral wound. The patient will be continued on broad-spectrum antimicrobials per ID recommendations. He is currently hemodynamically stable without need for vasopressor support. Patient's NG was in the midesophagus, but appears to be well below larynx with no obvious aspiration pattern on chest x-ray. 2. Metabolic encephalopathy Continue current supportive measures as noted above. The patient has not demonstrated any active seizure activity. I do suspect that his residual lethargy is likely secondary to opiate pain medication utilization, combined with his underlying infectious process. 3. Coronary artery disease status post CABG/atrial fibrillation/unspecified seizure disorder/diabetes mellitus/GERD Complicates care, management, recovery and prognosis. Continue home medications as indicated. Physical therapy to work with the patient. 4. Hypernatremia/hyperchloremia Likely secondary to resuscitation efforts with normal saline. Patient on D5W at this time and tolerating well. Renal function remains acceptable. Slight elevation in liver enzymes noted. Defer to surgery on tube feed regimen Inpatient E&M: [id number] [facility] L3
--- NOTE | 2019-08-25 08:41 | PCM.PROGNOTE ---
Patient Problems: Active and Suspected Problems (Last Updated 08/25/19 @ 08:[address] Samina Heredia MD) Cecum perforation (Acute) Severe sepsis (Acute) Sacral wound (Acute) UTI (urinary tract infection) (Acute) Subjective: Chief complaint: Follow-up after admission for severe sepsis secondary to stage IV infected sacral decubitus ulcer status post excision with partial ostectomy for osteomyelitis, patient underwent diversion end colostomy that was complicated by perforation of the cecum status post laparoscopic ileocecectomy with primary anastomosis. Patient seen and examined. Overnight, patient remained tachycardic and lactic acid started to go up again. He was transferred back to ICU. Chest x-ray done and revealed that NG tube is high on the chest and patient was on tube feeds. Tube was advanced down. Patient is not able to provide any history. He is alert, spontaneous eye opening, not communicating, not able to answer any questions. He is tachycardic, blood pressure stable, had a spike fever early this morning, pulse ox is 95% on 3 L. - Physical Exam Vitals/I&O's: Vital Signs Temp Pulse Resp BP Pulse Ox 101.8 F H 93 18 128/63 H 95 08/25/19 00:00 08/25/19 07:29 08/25/19 00:00 08/25/19 00:00 08/25/19 00:00 Oxygen Flow Rate (L/min) 3 Oxygen Delivery Method Nasal Cannula Weight: 285 lb 7.978 oz Body Mass Index (BMI) 41.8 Finger Stick Blood Glucose 191 Intake and Output for Last 24 Hours 08/23/19 08/24/19 08/25/19 23:59 23:59 23:59 Intake Total 1952.5 / 1952.5 5711.00 / 5711.00 1175 / 1175 Output Total 2160 / 2160 2950 / 3550 1275 / 1275 Balance -207.5 / -207.5 2761.00 / 2161.00 -100 / -100 General: Alert, Cooperative, - - Nonverbal, not able to provide any history. Mildly short of breath. HEENT: Atraumatic, PERRLA, EOMI, Normocephalic Oral: Moist Mucosa, No Gingival or Mucosal Lesions/ Ulcerations Neck: Supple, No JVD, Negative Carotid Bruits, Trachea Midline, Thyroid Normal Size and Texture Lungs: No wheeze, No rales, Diminished, - - Decreased breath sounds bilateral, scattered rhonchi. Cardiovascular: Regular rate, Regular Rhythm, Normal S1, Normal S2, PMI Normal, Tachycardic Abdomen: Bowel Sounds Present, Soft, Non Tender, Non-Distended, No Hepato-splenomegaly, Obese, - - Midline surgical incision, clean and dry. Colostomy in place. Extremities: No clubbing, No cyanosis, Edema - Trace edema. Skin: No rashes, No breakdown Lymphatic: No Cervical, Supraclavicular, or Inguinal Adenopathy Neurological: Cranial nerves II-XII grossly intact, Neuro grossly intact Psych/Mental Status: Flat Affect Microbiology Past 72 Hours 08/19/19 12:50 Blood Culture (Wb) - Pic Blood Culture - Final No growth in 5 days. 08/18/19 11:33 Blood Culture (Wb) - Arm Right Blood Culture - Final No growth in 5 days. 08/18/19 16:10 Wound - Aerobic & Anaerobic Swabs Gram Stain - Final 08/18/19 16:10 Wound - Aerobic & Anaerobic Swabs Wound Culture - Final Escherichia coli Proteus mirabilis#2 Proteus mirabilis Vancomycin Resist. E. faecium 08/18/19 16:10 Wound - Aerobic & Anaerobic Swabs Anaerobic Culture - Final No anaerobic bacteria isolated. 08/19/19 16:06 Tissue - Sacral Gram Stain - Final 08/19/19 16:06 Tissue - Sacral Wound Culture - Preliminary Providencia stuartii Acinetobacter baumannii comple Vancomycin Resist. E. faecium 08/19/19 16:06 Tissue - Sacral Anaerobic Culture - Preliminary Checking for anaerobes, further studies to follow. 08/19/19 16:06 Tissue - Sacral Gram Stain - Final 08/19/19 16:06 Tissue - Sacral Wound Culture - Final Escherichia coli Proteus mirabilis Providencia stuartii Meth. resistant Staph. aureus 08/19/19 16:06 Tissue - Sacral Anaerobic Culture - Preliminary Checking for anaerobes, further studies to follow. 08/18/19 11:45 Blood Culture (Wb) - Pic Blood Culture - Final Enterobacter cloacae complex Enterobacter cloacae complex#2 Staphylococcus epidermidis Laboratory Results 08/24/19 00:50: POC Glucose 41 L* 08/24/19 00:53: POC Glucose 89 08/24/19 06:19: POC Glucose 99 08/24/19 07:40: Sodium 154 H, Potassium 3.9, Chloride 123 H, Carbon Dioxide 24.0, Anion Gap 7, BUN 33 H, Creatinine 0.89, Estim Creat Clear Calc 90.47, Est GFR (MDRD) Af Amer 113, Est GFR (MDRD) Non-Af 93, BUN/Creatinine Ratio 37.0 H, Glucose 108 H, Calcium 8.2 L, Magnesium 2.5, Total Bilirubin 1.10 H, AST 223 H, ALT 158 H, Alkaline Phosphatase 273 H, Total Protein 6.8, Albumin 1.5 L, Globulin 5.3 H, Albumin/Globulin Ratio 0.3 L 08/24/19 07:40: Ammonia 50.0 H 08/24/19 11:36: POC Glucose 100 08/24/19 17:37: POC Glucose 111 H 08/24/19 18:55: Sodium 153 H, Potassium 3.7, Chloride 120 H, Carbon Dioxide 25.0, Anion Gap 8, BUN 29 H, Creatinine 0.87, Estim Creat Clear Calc 92.55, Est GFR (MDRD) Af Amer 115, Est GFR (MDRD) Non-Af 95, BUN/Creatinine Ratio 33.2 H, Glucose 121 H, Calcium 8.1 L 08/24/19 18:55: Lactic Acid 3.7 H* 08/24/19 20:25: Specimen Type ART, Sample Site R RADIAL, pH 7.50 H, Bicarbonate Actual 25.0, POC Total CO2 26, Base Excess 2, O2 Saturation 98, ABG pCO2 32.1 L, ABG pO2 94, Nacho Test POS, O2 Delivery Device Nasal Can, Liter Flow 3.0, Blood Gas Notified Whom [facility], Blood Gas Notified Time 202408/24/19 23:05: Lactic Acid 3.6 H* 08/24/19 23:22: POC Glucose 119 H 08/25/19 06:15: POC Glucose 142 H 08/25/19 06:30: WBC 10.6, RBC 2.86 L, Hgb 8.4 L, Hct 28.3 L, MCV 99.0 H, MCH 29.4, MCHC 29.7 L, RDW Std Deviation 62.0 H, RDW Coeff of Tio 17.1 H, Plt Count 288, MPV 9.7, Immature Gran % (Auto) 1.000 H, Neut % (Auto) 72.0 H, Lymph % (Auto) 17.5 L, Ashley % (Auto) 9.0, Eos % (Auto) 0.2, Baso % (Auto) 0.3, Absolute Neuts (auto) 7.6, Absolute Lymphs (auto) 1.85, Nucleated RBC % 0, Differential Comment SCANNED, Reactive Lymphocytes 1+ 08/25/19 06:30: Sodium 151 H, Potassium 3.6, Chloride 119 H, Carbon Dioxide 25.0, Anion Gap 7, BUN 29 H, Creatinine 0.80, Estim Creat Clear Calc 100.65, Est GFR (MDRD) Af Amer 127, Est GFR (MDRD) Non-Af 105, BUN/Creatinine Ratio 36.0 H, Glucose 153 H, Calcium 7.8 L, Magnesium 2.4, Total Bilirubin 1.00, Direct Bilirubin 0.77 H, AST 190 H, ALT 129 H, Alkaline Phosphatase 297 H, Total Protein 6.7, Albumin 1.5 L, Globulin 5.2 H Clinical Impression(s) from Imaging Studies Chest X-Ray 08/24/19 20:00 IMPRESSION: Right-sided PICC line noted appearing in adequate position. There has been interval removal of endotracheal tube seen on the previous study. A nasogastric tube is noted with tip at the level of the mid esophagus. Further advancement is recommended. Bibasilar infiltrates are again noted stable in the interval. There is a poor inspiration. Electronically Signed: Shashi Sexton MD at 20:26 EDT , Service support , KUB X-Ray 08/24/19 22:25 IMPRESSION: Nasogastric tube noted appearing in adequate position at this time. No evidence of ileus or obstruction. Electronically Signed: Shashi Sexton MD at 23:31 EDT , Service support , Current Medications Acetaminophen (Tylenol Liquid) 650 mg GT Q6H PRN PRN PRN Reason: Pain Score 1-11/14 Last Admin: 08/24/19 19:07 Dose: 650 mg Documented by: Aspirin (Aspirin, Baby) 81 mg GT DAILY [facility] Last Admin: 08/24/19 10:50 Dose: 81 mg Documented by: Atorvastatin Calcium (Lipitor) 80 mg GT QHS [facility] Last Admin: 08/24/19 21:34 Dose: 80 mg Documented by: Calamine/Phenol (Calmoseptine Ointment) 1 applic TOPICAL TID [facility]; Protocol Last Admin: 08/25/19 06:24 Dose: 1 applicatio Documented by: Dextrose (D50w Syringe) 0 gm IV X1 PRN; Protocol PRN Reason: Hypoglycemia Diazepam (Valium) 5 mg GT Q6H PRN PRN PRN Reason: SPASMS Diltiazem HCl (Cardizem) 60 mg GT Q8 [facility] Last Admin: 08/25/19 06:25 Dose: 60 mg Documented by: Docusate Sodium (Colace Syrup) 100 mg GT BID [facility] Last Admin: 08/24/19 21:26 Dose: 100 mg Documented by: Enoxaparin Sodium (Lovenox) 40 mg SC DAILY [facility] Last Admin: 08/24/19 10:53 Dose: 40 mg Documented by: Famotidine (Pepcid) 20 mg GT DAILY [facility] Last Admin: 08/24/19 10:54 Dose: 20 mg Documented by: Fenofibrate (Tricor) 145 mg GT DAILY [facility] Last Admin: 08/24/19 10:55 Dose: 145 mg Documented by: Folic Acid (Folic Acid) 1 mg GT DAILY [facility] Last Admin: 08/24/19 10:52 Dose: 1 mg Documented by: Glucagon () 1 mg IM .X1 PRN PRN Reason: Hypoglycemia Meropenem 1 gm/ Sodium (Chloride) 120 mls @ 33 mls/hr IV Q8 [facility] Last Admin: 08/25/19 06:26 Dose: 33 mls/hr Documented by: Sodium Chloride () 250 mls @ 15 mls/hr IV .[id number] PRN PRN Reason: Saline Flush Last Infusion: 08/23/19 11:24 Dose: Infused Documented by: Sodium Chloride () 250 mls @ 15 mls/hr IV .[id number] PRN PRN Reason: Additional IVPB Infusion Eravacycline 125 mg/ Sodium (Chloride) 262.5 mls @ 262.5 mls/hr IV Q12 [facility] Last Infusion: 08/24/19 23:27 Dose: Infused Documented by: Valproic Acid 750 mg/ Dextrose 57.5 mls @ 50 mls/hr IV Q8 [facility] Last Admin: 08/25/19 06:21 Dose: 50 mls/hr Documented by: Lactose (Pivot 1.5 Yousuf) 1,000 mls @ 10 mls/hr GT .Q48H [facility] Last Admin: 08/24/19 12:27 Dose: 10 mls/hr Documented by: Dextrose () 1,000 mls @ 150 mls/hr IV .Q6H40M [facility] Last Admin: 08/25/19 06:20 Dose: 150 mls/hr Documented by: Insulin Human Lispro (Humalog Kwikpen (Bkc)) 0 unit SC Q6H [facility]; Protocol Last Admin: 08/25/19 06:25 Dose: Not Given Documented by: Lactobacillus Acidophilus (Acidophilus) 2 tablet GT DAILY [facility] Last Admin: 08/24/19 10:49 Dose: 2 tablet Documented by: Linezolid (Zyvox) 600 mg GT BID [facility] Last Admin: 08/24/19 21:35 Dose: 600 mg Documented by: Metoprolol Tartrate (Lopressor (Beta Dana)) 100 mg GT BID [facility] Last Admin: 08/24/19 20:00 Dose: 100 mg Documented by: Morphine Sulfate () 1 mg IV Q3H PRN PRN PRN Reason: Pain Score 6-10/10 Last Admin: 08/24/19 17:14 Dose: 1 mg Documented by: Nutritional Formula (Mike - [place] Flavor) 1 packet GT BID [facility] Last Admin: 08/24/19 21:33 Dose: 1 packet Documented by: Nystatin (Mycostatin Powder) 1 applic TOPICAL BID [facility]; Protocol Last Admin: 08/24/19 21:35 Dose: 1 applicatio Documented by: Polyethylene Glycol (Miralax) 17 gm GT DAILY [facility] Last Admin: 08/24/19 10:53 Dose: 17 gm Documented by: Promethazine HCl (Phenergan Tablet) 25 mg GT Q4H PRN PRN PRN Reason: NAUSEA/VOMITING Sodium Chloride () 10 - 40 ml IV UD PRN PRN Reason: SALINE FLUSH Last Admin: 08/24/19 17:14 Dose: 10 ml Documented by: Sodium Hypochlorite (Dakins Solution 0.25% (1/2 Strength)) 1 applic TOPICAL BID [facility]; Protocol Last Admin: 08/24/19 23:46 Dose: 1 applicatio Documented by: Medical Necessity - Tobacco Use Smoking Status: Current every day smoker Assessment/Plan All Active Problems (Last Updated 08/25/19 @ 08:[address] Samina Heredia MD) Cecum perforation (Acute) Multiple drug resistant Acinetobacter infection (Acute) Methicillin resistant Staphylococcus aureus infection (Acute) Severe sepsis (Acute) Sacral wound (Acute) UTI (urinary tract infection) (Acute) This is a 59 years old male patient [facility] because of change in mental status, found to have severe sepsis secondary to stage IV infected sacral decubitus ulcer, underwent excision with partial ostectomy for osteomyelitis, underwent diverting colostomy which was complicated by perforation of the cecum status post laparoscopic ileocecectomy with primary stenosis. #1 severe sepsis: Secondary to infected sacral stage IV decubitus ulcer as well as acute complicated cystitis. Currently, patient is on eravacycline, meropenem and Zyvox. Overnight, patient became tachycardic again and lactic acid started to go up. He has been having spikes of fever. Blood, wound and urine culture reviewed as below. Patient still tachycardic, having spikes of fever, blood pressure is maintained. Critical care and infectious disease on the case. Plan to continue same treatment. #2 acute respiratory failure: Status post extubation. Currently, he is on 3 L of oxygen and pulse ox is 95%. #3 polymicrobial infected stage IV sacral decubitus ulcer: Status post excision and partial ostectomy for osteomyelitis, postoperative day 6. Patient remains on IV antibiotics as mentioned above. Wound culture revealed E. coli, Proteus mirabilis, Providencia stuartii and MRSA as well as vancomycin resistant Enterococcus faecium. Infectious disease on the case. #4 Enterobacter cloacae and staph edematous./staph epidermidis bacteremia: 1 bottle of blood culture was positive for mention bacteria. Repeat blood culture showed no growth in 5 days. Infectious disease on the case, patient on IV antibiotics as mentioned above. #5 acute complicated cystitis: In the setting of chronic indwelling Chakraborty catheter. Patient was on IV antibiotics. Culture revealed presumptive Lilliam albicans. #6 acute metabolic encephalopathy: Attributed to severe sepsis. Apparently, patient is nonverbal at baseline but I am not sure how he communicates [facility] the [facility]. Currently he is alert, nonverbal, all limbs. #7 status post diversion colostomy: That was complicated by perforation of the cecum, status post laparoscopic ileocecectomy and primary stenosis. Remains on nothing by mouth. Abdominal examination is benign. General surgery on the case. #8 elevated LFT: Likely due to severe sepsis. No right upper quadrant tenderness. Plan to monitor. #9 hyponatremia/hyperchloremia: Probably due to excessive IV fluid resuscitation. Patient is on IVs with D5 water. Sodium is trending down as well as I. #10 type 2 diabetes mellitus: Blood sugar has been stable. He is on sliding scale only. Metformin held. #11 seizure disorder: Stable, continue IV valproic acid. #12 hypertension: Blood pressure is maintained at this time, continue metoprolol. #13 CAD status post CABG: Stable, no acute issues. Continue aspirin, statins, beta-blockers. #14 paroxysmal atrial fibrillation: Tachycardic, heart rate has been around 110. Continue Cardizem and metoprolol for rate control. He is not on anticoagulation. #15 DVT prophylaxis: Subcu Lovenox. This note was generated with [employer] dictation software. It may contain incorrect words, spelling, and punctuation that were not noted in checking the note before signing. Inpatient E&M: [id number] [facility] L3
[2019-08-25] MEDS: Metoprolol Tartrate 100 MG Tablet GT (09:41)
[2019-08-25] MEDS: Aspirin 81 MG TAB.CHEW GT (09:42)
[2019-08-25] MEDS: Folic Acid 1 MG Tablet GT (09:42)
[2019-08-25] MEDS: Polyethylene Glycol 3350 17 GM PACKET GT (09:44)
[2019-08-25] MEDS: Acetaminophen 650 MG/20 ML UDC GT (09:47)
[2019-08-25] MEDS: Famotidine 20 MG Tablet GT (09:48)
[2019-08-25] MEDS: Enoxaparin 40 MG/0.4 ML Syringe SC (09:48)
[2019-08-25] MEDS: Fenofibrate 145 MG Tablet GT (09:49)
--- NOTE | 2019-08-25 10:01 | CASEMGMT ---
Social Work Note SW participated in ICU rounds. Pt not medically ready for discharge today. LUNA placed a call to Kirstin at [facility] and updated her that pt is not medically cleared for discharge today. LUNA faxed updated clinicals. Plan: Return to [facility] once medically cleared Kay Allen DELPHI DEVELOPER, FLIGHT READINESS TECHNICIAN
[2019-08-25] MEDS: Linezolid 600 MG Tablet GT (10:24)
[2019-08-25] MEDS: DAKIN'S SOL HALF STRENGTH (=0.25%) 1 APPLIC TOPICAL ×2 (10:37→21:56)
[2019-08-25] MEDS: Nystatin Powder 15gm Bottle 1 APPLIC TOPICAL ×2 (10:38→21:57)
[2019-08-25 11:56] LABS: Bedside Glucose 137 mg/dL (70-110)
[2019-08-25] MEDS: Pivot 1.5 Cal 1,000 ML 10 ML GT (13:43)
--- NOTE | 2019-08-25 15:11 | PN.ID_ITS ---
Patient Problems: Active and Suspected Problems (Last Updated 08/25/19 @ 08:[address] Samina Heredia MD) Cecum perforation (Acute) Severe sepsis (Acute) Sacral wound (Acute) UTI (urinary tract infection) (Acute) Subjective: Awake in icu. Fever to 101.8. - Physical Exam Vitals/I&O's: Vital Signs Temp Pulse Resp BP Pulse Ox 101.6 F H 90 31 H 115/58 L 97 08/25/19 08:00 08/25/19 12:00 08/25/19 08:00 08/25/19 09:41 08/25/19 08:54 Oxygen Flow Rate (L/min) 1 Oxygen Delivery Method Nasal Cannula Weight: 129.5 kg Body Mass Index (BMI) 41.8 Finger Stick Blood Glucose 191 Intake and Output for Last 24 Hours 08/23/19 08/24/19 08/25/19 23:59 23:59 23:59 Intake Total 1952.5 / 1952.5 5711.00 / 5711.00 1352.5 / 1352.5 Output Total 2160 / 2160 2950 / 3550 1275 / 1275 Balance -207.5 / -207.5 2761.00 / 2161.00 77.5 / 77.5 General: No apparent distress Lungs: Clear to auscultation, Normal air movement Cardiovascular: Tachycardic Abdomen: Soft, Non Tender, Non-Distended Skin: Ulcer/ Wound Microbiology Past 72 Hours 08/19/19 16:06 Tissue - Sacral Gram Stain - Final 08/19/19 16:06 Tissue - Sacral Wound Culture - Preliminary Providencia stuartii Acinetobacter baumannii Enterococcus faecium 08/19/19 16:06 Tissue - Sacral Anaerobic Culture - Preliminary Checking for anaerobes, further studies to follow. 08/19/19 12:50 Blood Culture (Wb) - Pic Blood Culture - Final No growth in 5 days. 08/18/19 11:33 Blood Culture (Wb) - Arm Right Blood Culture - Final No growth in 5 days. 08/18/19 16:10 Wound - Aerobic & Anaerobic Swabs Gram Stain - Final 08/18/19 16:10 Wound - Aerobic & Anaerobic Swabs Wound Culture - Final Escherichia coli Proteus mirabilis#2 Proteus mirabilis Vancomycin Resist. E. faecium 08/18/19 16:10 Wound - Aerobic & Anaerobic Swabs Anaerobic Culture - Final No anaerobic bacteria isolated. Laboratory Results 08/24/19 00:50: POC Glucose 41 L* 08/24/19 00:53: POC Glucose 89 08/24/19 06:19: POC Glucose 99 08/24/19 11:36: POC Glucose 100 08/24/19 17:37: POC Glucose 111 H 08/24/19 18:55: Sodium 153 H, Potassium 3.7, Chloride 120 H, Carbon Dioxide 25.0, Anion Gap 8, BUN 29 H, Creatinine 0.87, Estim Creat Clear Calc 92.55, Est GFR (MDRD) Af Amer 115, Est GFR (MDRD) Non-Af 95, BUN/Creatinine Ratio 33.2 H, Glucose 121 H, Calcium 8.1 L 08/24/19 18:55: Lactic Acid 3.7 H* 08/24/19 20:25: Specimen Type ART, Sample Site R RADIAL, pH 7.50 H, Bicarbonate Actual 25.0, POC Total CO2 26, Base Excess 2, O2 Saturation 98, ABG pCO2 32.1 L, ABG pO2 94, Nacho Test POS, O2 Delivery Device Nasal Can, Liter Flow 3.0, Blood Gas Notified Whom [facility] , Blood Gas Notified Time 202408/24/19 23:05: Lactic Acid 3.6 H* 08/24/19 23:22: POC Glucose 119 H 08/25/19 06:15: POC Glucose 142 H 08/25/19 06:30: WBC 10.6, RBC 2.86 L, Hgb 8.4 L, Hct 28.3 L, MCV 99.0 H, MCH 29.4, MCHC 29.7 L, RDW Std Deviation 62.0 H, RDW Coeff of Tio 17.1 H, Plt Count 288, MPV 9.7, Immature Gran % (Auto) 1.000 H, Neut % (Auto) 72.0 H, Lymph % (Auto) 17.5 L, [place] % (Auto) 9.0, Eos % (Auto) 0.2, Baso % (Auto) 0.3, Absolute Neuts (auto) 7.6, Absolute Lymphs (auto) 1.85, Nucleated RBC % 0, Differential Comment SCANNED, Reactive Lymphocytes 1+ 08/25/19 06:30: Sodium 151 H, Potassium 3.6, Chloride 119 H, Carbon Dioxide 25.0, Anion Gap 7, BUN 29 H, Creatinine 0.80, Estim Creat Clear Calc 100.65, Est GFR (MDRD) Af Amer 127, Est GFR (MDRD) Non-Af 105, BUN/Creatinine Ratio 36.0 H, Glucose 153 H, Calcium 7.8 L, Magnesium 2.4, Total Bilirubin 1.00, Direct Bilirubin 0.77 H, AST 190 H, ALT 129 H, Alkaline Phosphatase 297 H, Total Protein 6.7, Albumin 1.5 L, Globulin 5.2 H 08/25/19 11:48: POC Glucose 137 H 08/25/19 14:45: Sodium Pending, Potassium Pending, Chloride Pending, Carbon Dioxide Pending, Anion Gap Pending, BUN Pending, Creatinine Pending, Est GFR (MDRD) Af Amer Pending, Est GFR (MDRD) Non-Af Pending, BUN/Creatinine Ratio Pending, Glucose Pending, Calcium Pending Current Medications Acetaminophen (Tylenol Liquid) 650 mg GT Q6H PRN PRN PRN Reason: Pain Score 1-10/10 Last Admin: 08/25/19 09:47 Dose: 650 mg Documented by: Aspirin (Aspirin, Baby) 81 mg GT DAILY [facility] Last Admin: 08/25/19 09:42 Dose: 81 mg Documented by: Atorvastatin Calcium (Lipitor) 80 mg GT QHS [facility] Last Admin: 08/24/19 21:34 Dose: 80 mg Documented by: Calamine/Phenol (Calmoseptine Ointment) 1 applic TOPICAL TID [facility]; Protocol Last Admin: 08/25/19 06:24 Dose: 1 applicatio Documented by: Dextrose (D50w Syringe) 0 gm IV X1 PRN; Protocol PRN Reason: Hypoglycemia Diazepam (Valium) 5 mg GT Q6H PRN PRN PRN Reason: SPASMS Diltiazem HCl (Cardizem) 60 mg GT Q8 [facility] Last Admin: 08/25/19 14:03 Dose: 60 mg Documented by: Docusate Sodium (Colace Syrup) 100 mg GT BID [facility] Last Admin: 08/25/19 09:43 Dose: Not Given Documented by: Enoxaparin Sodium (Lovenox) 40 mg SC DAILY [facility] Last Admin: 08/25/19 09:48 Dose: 40 mg Documented by: Famotidine (Pepcid) 20 mg GT DAILY [facility] Last Admin: 08/25/19 09:48 Dose: 20 mg Documented by: Fenofibrate (Tricor) 145 mg GT DAILY [facility] Last Admin: 08/25/19 09:49 Dose: 145 mg Documented by: Folic Acid (Folic Acid) 1 mg GT DAILY [facility] Last Admin: 08/25/19 09:42 Dose: 1 mg Documented by: Glucagon () 1 mg IM .X1 PRN PRN Reason: Hypoglycemia Meropenem 1 gm/ Sodium (Chloride) 120 mls @ 33 mls/hr IV Q8 [facility] Last Admin: 08/25/19 13:38 Dose: 33 mls/hr Documented by: Sodium Chloride () 250 mls @ 15 mls/hr IV .[id number] PRN PRN Reason: Saline Flush Last Infusion: 08/23/19 11:24 Dose: Infused Documented by: Sodium Chloride () 250 mls @ 15 mls/hr IV .[id number] PRN PRN Reason: Additional IVPB Infusion Eravacycline 125 mg/ Sodium (Chloride) 262.5 mls @ 262.5 mls/hr IV Q12 [facility] Last Admin: 08/25/19 10:33 Dose: 262.5 mls/hr Documented by: Valproic Acid 750 mg/ Dextrose 57.5 mls @ 50 mls/hr IV Q8 [facility] Last Admin: 08/25/19 13:41 Dose: 50 mls/hr Documented by: Lactose (Pivot 1.5 Yousuf) 1,000 mls @ 10 mls/hr GT .Q48H [facility] Last Admin: 08/25/19 13:43 Dose: 10 mls/hr Documented by: Dextrose () 1,000 mls @ 150 mls/hr IV .Q6H40M [facility] Last Admin: 08/25/19 08:59 Dose: Not Given Documented by: Daptomycin 1,000 mg/ Sodium (Chloride) 70 mls @ 140 mls/hr IV Q24 [facility] Last Admin: 08/25/19 15:05 Dose: 140 mls/hr Documented by: Insulin Human Lispro (Humalog Kwikpen (Bkc)) 0 unit SC Q6H [facility]; Protocol Last Admin: 08/25/19 11:50 Dose: Not Given Documented by: Lactobacillus Acidophilus (Acidophilus) 2 tablet GT DAILY [facility] Last Admin: 08/25/19 09:42 Dose: 2 tablet Documented by: Metoprolol Tartrate (Lopressor (Beta Dana)) 100 mg GT BID [facility] Last Admin: 08/25/19 09:41 Dose: 100 mg Documented by: Morphine Sulfate () 1 mg IV Q3H PRN PRN PRN Reason: Pain Score 6-10/10 Last Admin: 08/24/19 17:14 Dose: 1 mg Documented by: Nutritional Formula (Mike - [place] Flavor) 1 packet GT BID [facility] Last Admin: 08/25/19 09:43 Dose: 1 packet Documented by: Nystatin (Mycostatin Powder) 1 applic TOPICAL BID [facility]; Protocol Last Admin: 08/25/19 10:38 Dose: 1 applicatio Documented by: Polyethylene Glycol (Miralax) 17 gm GT DAILY [facility] Last Admin: 08/25/19 09:44 Dose: 17 gm Documented by: Promethazine HCl (Phenergan Tablet) 25 mg GT Q4H PRN PRN PRN Reason: NAUSEA/VOMITING Sodium Chloride () 10 - 40 ml IV UD PRN PRN Reason: SALINE FLUSH Last Admin: 08/24/19 17:14 Dose: 10 ml Documented by: Sodium Hypochlorite (Dakins Solution 0.25% (1/2 Strength)) 1 applic TOPICAL BID [facility]; Protocol Last Admin: 08/25/19 10:37 Dose: 1 applicatio Documented by: Medical Necessity - Tobacco Use Smoking Status: Current every day smoker Route of nutrition/ use of supplements: [] Nutritional Intake: [] IV Site: [] Chakraborty Catheter: [] - Assessment/Plan Antibiotics: [] Assessment/Plan: [] Active and Suspected Problems (Last Updated 12/07/17 @ 08:57 by Shira Conte) Severe sepsis (Acute) Sacral wound (Acute) UTI (urinary tract infection) (Acute) severe sepsis with polymicrobial bacteremia, 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 OR 08/[address] Nguyễn for I&D. OR 08/[address] Crystal for diverting ostomy. On linezolid/gudelia/eravacycline. Wbc much improved. Wound cx with providencia, VRE, XDR Acinetobacter, MRSA, proteus. Bcx with enterobacter x2 and MRSE. Spoke with micro lab and requested additional susc testing for the AcB. VRE was R to linezolid, still with fever. Will check bcx x2 and change linezolid to dapto. Will follow
[2019-08-25 15:14] LABS: Anion Gap 5 (5-15); BUN 29 mg/dL (7-18); BUN/Creat Ratio 41.1 RATIO (10-20); Calcium,Total 7.8 mg/dL (8.5-10.1); Chloride 117 mmol/L (98-107); EST Glomerular Filtration Rate 122 mL/min (>60); Est Glom Filt Rate - Afr Amer 148 mL/min (>60); Estimated Creatinine Clearance 115.03 ml/min; Glucose 155 mg/dL (74-106); Potassium 3.7 mmol/L (3.5-5.1); Sodium Level 148 mmol/L (136-145)
[2019-08-25] MEDS: Morphine 2 MG/ML Syringe 1 MG IV ×2 (16:36→21:58)
--- NOTE | 2019-08-25 16:39 | PCM.PN.BLA ---
Progress Note Patient is more coherent, did take down bag off the ostomy forceps and pulled the stoma back up to secure will get additional silk sutures to secure further versus taking him back to the OR as it did look like healthy colonic tissue just a little bit from the distal aspect. Continue to monitor closely. Plan to get a CT abdomen pelvis as patient has been having fevers just to make sure there is nothing else going on in the abdomen and patient has been quite confused was difficult to see if his abdomen is more tender or not. Did discuss this with patient significant other Martha/POA she was agreeable with plan. I would also like to prefer not going back to the OR if possible. Janice Manzano M.D. Pager: [phone] [facility] [address] [place] [address], [facility], [address] [place] [address] Office: [phone] Addendum: Did prepped and draped the stoma site with Betadine, 1% lidocaine plain was used to numb up the skin. Small of stoma was excised with scissors. 3-0 silk sutures were used to secure the viable into the skin. Patient tolerated well. Will check CT abdomen pelvis.
--- NOTE | 2019-08-25 17:07 | CT_ITS ---
STUDY: CT ABDOMEN AND PELVIS WITH CONTRAST REASON FOR EXAM: Male, 59 years old. COLOSTOMY/PRIOR COLON LEAK. Hx of CABG, CHF, diabetes, pacemaker, HTN and PAD RADIATION DOSAGE (If Supplied By Facility): CTDIvol = ( 18.74 ) mGy, DLP = ( 1362.58 ) mGycm TECHNIQUE: Transaxial images were obtained from the dome of the diaphragm to the symphysis pubis without oral contrast. Oral and amp; IV Gastrografin and amp; 100mL Isovue-300 was administered. Sagittal and coronal images were reconstructed. Individualized dose optimization techniques were used for this CT. COMPARISON: August 20, 2019 FINDINGS: There is consolidation within the right lower lobe. There are coronary artery calcifications present. There is decreased attenuation of the liver consistent with steatosis. There is a gallstone within the gallbladder. Normal spleen. Normal pancreas. Normal bilateral adrenal glands. There is a right ureteral stent in place in a grossly satisfactory position. There is a right renal cyst present. There is a left renal cyst. There is no enteric tube in place terminating within the gastric fundus. The small bowel is within normal limits. There are postsurgical changes of the colon present. There is an ostomy within the left lower abdomen. No extravasated contrast is seen. There is diffuse atherosclerotic calcification of the abdominal aorta, without a demonstrated aneurysm. Normal inferior vena cava. Normal retroperitoneum. The bladder is incompletely distended. There is a Chakraborty catheter and the distal end of the right ureteral stent is visualized. There is a stable large ulcer dorsal to the sacrum. There is osteolysis of the distal sacrum and coccyx consistent with chronic osteomyelitis. There are degenerative changes of the visualized thoracic and lumbar spine. Normal osseous structures. CT/Abdomen/Pelvis WITH Contrast IMPRESSION: Fatty infiltration of the liver. Postsurgical changes of the bowel with no evidence of extravasation. Atherosclerosis. Consolidation within the right lower lobe. Cholelithiasis. Stable right ureteral stent. Stable large decubitus ulcer. Electronically Signed: Janet Quezada MD at 23:12 EDT Tel , Service support ,
[2019-08-25] MEDS: Morphine 2 MG/ML Syringe IV (17:31)
[2019-08-25 17:35] LABS: Bedside Glucose 118 mg/dL (70-110)
[2019-08-25] MEDS: Atorvastatin Calcium 80 MG Tablet GT (21:56)
[2019-08-25] MEDS: Docusate Sodium 100 MG/10 ML UDC GT (21:57)
[2019-08-26] VITALS (30 sets, daily range): BP systolic 106–155; BP diastolic 49–88; PULSE 85–115; RESP 17–36; TEMP 37.3–38.2; O2SAT 91–100; BMI 41.9
[2019-08-26 00:15] LABS: Bedside Glucose 87 mg/dL (70-110)
[2019-08-26 04:27] LABS: Absolute Lymphocyte Count 1.88 X10^3/uL (0.83-4.51); Absolute Neutrophil Count 7.6 X10^3/uL (2.0-7.7); Basophil# 0.04 X10^3/uL; Basophil% 0.4 % (0-1); Eosinophil# 0.15 X10^3/uL; Eosinophils% 1.4 % (0-5); Hematocrit 27.1 % (40-54); Hemoglobin 7.9 g/dL (13.0-16.5); Lymphocyte # 1.88 X10^3/ul (4.0); Lymphocyte % 17.7 % (19-41); Mean Corp Hgb Conc 29.2 g/dL (32-36); Mean Corpuscular Hgb 28.9 pg (27.0-32.0); Mean Corpuscular Volume 99.3 fL (80-94); Mean Platelet Vol. 9.4 fl (6.2-12.0); Monocyte# 0.88 X10^3/uL; Monocyte% 8.3 % (0-10); NRBC Flagged by Analyzer 0.2 % (0-5); Neutrophil # 7.56 X10^3/uL (2.7-7.7); Neutrophil % 71.3 % (47-70); Platelet Count 232 K/mm3 (150-450); RBC Distribution Width SD 61.5 fl (35.1-43.9); Red Blood Count 2.73 M/mm3 (4.6-6.2); White Blood Count 10.6 K/mm3 (4.4-11.0)
[2019-08-26 04:44] LABS: Anion Gap 7 (5-15); BUN 26 mg/dL (7-18); CPK Total, Creatine Kinase 111 U/L (39-308); Calcium,Total 7.5 mg/dL (8.5-10.1); Chloride 113 mmol/L (98-107); Creatinine, Serum 0.68 mg/dL (0.70-1.30); EST Glomerular Filtration Rate 126 mL/min (>60); Est Glom Filt Rate - Afr Amer 153 mL/min (>60); Estimated Creatinine Clearance 118.41 ml/min; Glucose 110 mg/dL (74-106); Potassium 3.5 mmol/L (3.5-5.1); Sodium Level 146 mmol/L (136-145)
[2019-08-26] MEDS: dilTIAZem 30 MG Tablet 60 MG GT ×3 (05:08→21:09)
[2019-08-26] MEDS: Menthol/Lanolin/Calamine/Znox 113 GM Tube 1 APPLIC TOPICAL ×3 (05:08→21:08)
[2019-08-26 05:36] LABS: Bedside Glucose 112 mg/dL (70-110)
[2019-08-26] MEDS: Alteplase 2 MG/2 ML Vial IV ×2 (06:18)
--- NOTE | 2019-08-26 06:58 | PCM.PN.INT ---
Subjective: Patient did okay overnight. Patient did have some lower blood pressures, so some medications were held. Patient did receive a PICC line yesterday, but nursing is reporting that he cannot infuse through either port this morning. Patient is more vocal, but still not able to add much information. Patient has been weaned to room air. Bedside procedure by surgery was discussed by phone last night General: Alert, Cooperative, Confused, - - Morbidly obese. Does vocalize HEENT: Atraumatic, PERRLA, EOMI, Normocephalic, - - No scleral icterus or injection noted Oral: Moist Mucosa, No Gingival or Mucosal Lesions/ Ulcerations Neck: Supple, No JVD, No Nodes, Trachea Midline, - - NG in place. Lungs: No rhonchi, No wheeze, No rales, Diminished Cardiovascular: Normal S1, Normal S2, No murmurs, No rub noted, No Gallop, Tachycardic Abdomen: Bowel Sounds Present, Soft, Non Tender, Non-Distended, Obese, - - Ostomy with partially formed stool noted Extremities: No clubbing, No cyanosis, Edema Skin: - - No change compared to previous Musculoskeletal: No Tenderness to Palpation of Joints or Extremities Lymphatic: No Cervical, Supraclavicular, or Inguinal Adenopathy Neurological: Cranial nerves II-XII grossly intact, Neuro grossly intact, Motor Exam 5/5 strength throughout Psych/Mental Status: Flat Affect Vital Signs Temp Pulse Resp BP Pulse Ox 37.8 C H 115 H 18 113/55 L 110 08/26/19 06:00 08/26/19 06:00 08/26/19 06:00 08/26/19 06:00 08/26/19 06:00 Oxygen Flow Rate (L/min) 1 Oxygen Delivery Method Room Air Weight: 128.8 kg Body Mass Index (BMI) 41.8 Finger Stick Blood Glucose 191 Intake and Output for Last 24 Hours 08/24/19 08/25/19 08/26/19 23:59 23:59 23:59 Intake Total 5711.00 / 5711.00 5312.5 / 5712.5 2196.15 / 2196.15 Output Total 2950 / 3550 2225 / 3025 1525 / 1525 Balance 2761.00 / 2161.00 3087.5 / 2687.5 671.15 / 671.15 Labs (Last 48 Hours) 08/24/19 08/24/19 08/24/19 00:50 00:53 06:19 WBC RBC Hgb Hct MCV MCH MCHC RDW Std Deviation RDW Coeff of Tio Plt Count MPV Immature Gran % (Auto) Neut % (Auto) Lymph % (Auto) [place] % (Auto) Eos % (Auto) Baso % (Auto) Absolute Neuts (auto) Absolute Lymphs (auto) Nucleated RBC % Differential Comment Reactive Lymphocytes Specimen Type Sample Site pH Bicarbonate Actual POC Total CO2 Base Excess O2 Saturation ABG pCO2 ABG pO2 Nacho Test O2 Delivery Device Liter Flow Blood Gas Notified Whom Blood Gas Notified Time Sodium Potassium Chloride Carbon Dioxide Anion Gap BUN Creatinine Estim Creat Clear Calc Est GFR (MDRD) Af Amer Est GFR (MDRD) Non-Af BUN/Creatinine Ratio Glucose Lactic Acid Calcium Magnesium Total Bilirubin Direct Bilirubin AST ALT Alkaline Phosphatase Ammonia Total Creatine Kinase Total Protein Albumin Globulin Albumin/Globulin Ratio POC Glucose 41 L* 89 99 08/24/19 08/24/19 08/24/19 07:40 07:40 07:40 WBC 10.3 RBC 3.01 L Hgb 8.7 L Hct 29.2 L MCV 97.0 H MCH 28.9 MCHC 29.8 L RDW Std Deviation 60.4 H RDW Coeff of Tio 17.1 H Plt Count 340 MPV 9.6 Immature Gran % (Auto) 1.100 H Neut % (Auto) 70.0 Lymph % (Auto) 18.0 L [place] % (Auto) 10.3 H Eos % (Auto) 0.0 Baso % (Auto) 0.6 Absolute Neuts (auto) 7.2 Absolute Lymphs (auto) 1.85 Nucleated RBC % 0 Differential Comment Reactive Lymphocytes Specimen Type Sample Site pH Bicarbonate Actual POC Total CO2 Base Excess O2 Saturation ABG pCO2 ABG pO2 Nacho Test O2 Delivery Device Liter Flow Blood Gas Notified Whom Blood Gas Notified Time Sodium 154 H Potassium 3.9 Chloride 123 H Carbon Dioxide 24.0 Anion Gap 7 BUN 33 H Creatinine 0.89 Estim Creat Clear Calc 90.47 Est GFR (MDRD) Af Amer 113 Est GFR (MDRD) Non-Af 93 BUN/Creatinine Ratio 37.0 H Glucose 108 H Lactic Acid Calcium 8.2 L Magnesium 2.5 Total Bilirubin 1.10 H Direct Bilirubin AST 223 H ALT 158 H Alkaline Phosphatase 273 H Ammonia 50.0 H Total Creatine Kinase Total Protein 6.8 Albumin 1.5 L Globulin 5.3 H Albumin/Globulin Ratio 0.3 L POC Glucose 08/24/19 08/24/19 08/24/19 11:36 17:37 18:55 WBC RBC Hgb Hct MCV MCH MCHC RDW Std Deviation RDW Coeff of Tio Plt Count MPV Immature Gran % (Auto) Neut % (Auto) Lymph % (Auto) [place] % (Auto) Eos % (Auto) Baso % (Auto) Absolute Neuts (auto) Absolute Lymphs (auto) Nucleated RBC % Differential Comment Reactive Lymphocytes Specimen Type Sample Site pH Bicarbonate Actual POC Total CO2 Base Excess O2 Saturation ABG pCO2 ABG pO2 Nacho Test O2 Delivery Device Liter Flow Blood Gas Notified Whom Blood Gas Notified Time Sodium 153 H Potassium 3.7 Chloride 120 H Carbon Dioxide 25.0 Anion Gap 8 BUN 29 H Creatinine 0.87 Estim Creat Clear Calc 92.55 Est GFR (MDRD) Af Amer 115 Est GFR (MDRD) Non-Af 95 BUN/Creatinine Ratio 33.2 H Glucose 121 H Lactic Acid Calcium 8.1 L Magnesium Total Bilirubin Direct Bilirubin AST ALT Alkaline Phosphatase Ammonia Total Creatine Kinase Total Protein Albumin Globulin Albumin/Globulin Ratio POC Glucose 100 111 H 08/24/19 08/24/19 08/24/19 18:55 20:25 23:05 WBC RBC Hgb Hct MCV MCH MCHC RDW Std Deviation RDW Coeff of Tio Plt Count MPV Immature Gran % (Auto) Neut % (Auto) Lymph % (Auto) [place] % (Auto) Eos % (Auto) Baso % (Auto) Absolute Neuts (auto) Absolute Lymphs (auto) Nucleated RBC % Differential Comment Reactive Lymphocytes Specimen Type ART Sample Site R RADIAL pH 7.50 H Bicarbonate Actual 25.0 POC Total CO2 26 Base Excess 2 O2 Saturation 98 ABG pCO2 32.1 L ABG pO2 94 Nacho Test POS O2 Delivery Device Nasal Can Liter Flow 3.0 Blood Gas Notified Whom [facility] Blood Gas Notified Time 2024 Sodium Potassium Chloride Carbon Dioxide Anion Gap BUN Creatinine Estim Creat Clear Calc Est GFR (MDRD) Af Amer Est GFR (MDRD) Non-Af BUN/Creatinine Ratio Glucose Lactic Acid 3.7 H* 3.6 H* Calcium Magnesium Total Bilirubin Direct Bilirubin AST ALT Alkaline Phosphatase Ammonia Total Creatine Kinase Total Protein Albumin Globulin Albumin/Globulin Ratio POC Glucose 08/24/19 08/25/19 08/25/19 23:22 06:15 06:30 WBC 10.6 RBC 2.86 L Hgb 8.4 L Hct 28.3 L MCV 99.0 H MCH 29.4 MCHC 29.7 L RDW Std Deviation 62.0 H RDW Coeff of Tio 17.1 H Plt Count 288 MPV 9.7 Immature Gran % (Auto) 1.000 H Neut % (Auto) 72.0 H Lymph % (Auto) 17.5 L [place] % (Auto) 9.0 Eos % (Auto) 0.2 Baso % (Auto) 0.3 Absolute Neuts (auto) 7.6 Absolute Lymphs (auto) 1.85 Nucleated RBC % 0 Differential Comment SCANNED Reactive Lymphocytes 1+ Specimen Type Sample Site pH Bicarbonate Actual POC Total CO2 Base Excess O2 Saturation ABG pCO2 ABG pO2 Nacho Test O2 Delivery Device Liter Flow Blood Gas Notified Whom Blood Gas Notified Time Sodium Potassium Chloride Carbon Dioxide Anion Gap BUN Creatinine Estim Creat Clear Calc Est GFR (MDRD) Af Amer Est GFR (MDRD) Non-Af BUN/Creatinine Ratio Glucose Lactic Acid Calcium Magnesium Total Bilirubin Direct Bilirubin AST ALT Alkaline Phosphatase Ammonia Total Creatine Kinase Total Protein Albumin Globulin Albumin/Globulin Ratio POC Glucose 119 H 142 H 08/25/19 08/25/19 08/25/19 06:30 11:48 14:45 WBC RBC Hgb Hct MCV MCH MCHC RDW Std Deviation RDW Coeff of Tio Plt Count MPV Immature Gran % (Auto) Neut % (Auto) Lymph % (Auto) [place] % (Auto) Eos % (Auto) Baso % (Auto) Absolute Neuts (auto) Absolute Lymphs (auto) Nucleated RBC % Differential Comment Reactive Lymphocytes Specimen Type Sample Site pH Bicarbonate Actual POC Total CO2 Base Excess O2 Saturation ABG pCO2 ABG pO2 Nacho Test O2 Delivery Device Liter Flow Blood Gas Notified Whom Blood Gas Notified Time Sodium 151 H 148 H Potassium 3.6 3.7 Chloride 119 H 117 H Carbon Dioxide 25.0 26.0 Anion Gap 7 5 BUN 29 H 29 H Creatinine 0.80 0.70 Estim Creat Clear Calc 100.65 115.03 Est GFR (MDRD) Af Amer 127 148 Est GFR (MDRD) Non-Af 105 122 BUN/Creatinine Ratio 36.0 H 41.1 H Glucose 153 H 155 H Lactic Acid Calcium 7.8 L 7.8 L Magnesium 2.4 Total Bilirubin 1.00 Direct Bilirubin 0.77 H AST 190 H ALT 129 H Alkaline Phosphatase 297 H Ammonia Total Creatine Kinase Total Protein 6.7 Albumin 1.5 L Globulin 5.2 H Albumin/Globulin Ratio POC Glucose 137 H 08/25/19 08/26/19 08/26/19 17:29 00:05 04:00 WBC 10.6 RBC 2.73 L Hgb 7.9 L Hct 27.1 L MCV 99.3 H MCH 28.9 MCHC 29.2 L RDW Std Deviation 61.5 H RDW Coeff of Tio 17.0 H Plt Count 232 MPV 9.4 Immature Gran % (Auto) 0.900 Neut % (Auto) 71.3 H Lymph % (Auto) 17.7 L [place] % (Auto) 8.3 Eos % (Auto) 1.4 Baso % (Auto) 0.4 Absolute Neuts (auto) 7.6 Absolute Lymphs (auto) 1.88 Nucleated RBC % 0.2 Differential Comment Reactive Lymphocytes Specimen Type Sample Site pH Bicarbonate Actual POC Total CO2 Base Excess O2 Saturation ABG pCO2 ABG pO2 Nacho Test O2 Delivery Device Liter Flow Blood Gas Notified Whom Blood Gas Notified Time Sodium Potassium Chloride Carbon Dioxide Anion Gap BUN Creatinine Estim Creat Clear Calc Est GFR (MDRD) Af Amer Est GFR (MDRD) Non-Af BUN/Creatinine Ratio Glucose Lactic Acid Calcium Magnesium Total Bilirubin Direct Bilirubin AST ALT Alkaline Phosphatase Ammonia Total Creatine Kinase Total Protein Albumin Globulin Albumin/Globulin Ratio POC Glucose 118 H 87 08/26/19 08/26/19 04:00 05:11 WBC RBC Hgb Hct MCV MCH MCHC RDW Std Deviation RDW Coeff of Tio Plt Count MPV Immature Gran % (Auto) Neut % (Auto) Lymph % (Auto) [place] % (Auto) Eos % (Auto) Baso % (Auto) Absolute Neuts (auto) Absolute Lymphs (auto) Nucleated RBC % Differential Comment Reactive Lymphocytes Specimen Type Sample Site pH Bicarbonate Actual POC Total CO2 Base Excess O2 Saturation ABG pCO2 ABG pO2 Nacho Test O2 Delivery Device Liter Flow Blood Gas Notified Whom Blood Gas Notified Time Sodium 146 H Potassium 3.5 Chloride 113 H Carbon Dioxide 26.0 Anion Gap 7 BUN 26 H Creatinine 0.68 L Estim Creat Clear Calc 118.41 Est GFR (MDRD) Af Amer 153 Est GFR (MDRD) Non-Af 126 BUN/Creatinine Ratio 38.0 H Glucose 110 H Lactic Acid Calcium 7.5 L Magnesium Total Bilirubin Direct Bilirubin AST ALT Alkaline Phosphatase Ammonia Total Creatine Kinase 111 Total Protein Albumin Globulin Albumin/Globulin Ratio POC Glucose 112 H Microbiology 08/19/19 16:06 Tissue - Sacral Gram Stain - Final 08/19/19 16:06 Tissue - Sacral Wound Culture - Preliminary Providencia stuartii Acinetobacter baumannii Enterococcus faecium 08/19/19 16:06 Tissue - Sacral Anaerobic Culture - Preliminary Checking for anaerobes, further studies to follow. 08/19/19 12:50 Blood Culture (Wb) - Pic Blood Culture - Final No growth in 5 days. Clinical Impression(s) from Imaging Studies Abdomen/Pelvis CT 08/25/19 17:07 IMPRESSION: Fatty infiltration of the liver. Postsurgical changes of the bowel with no evidence of extravasation. Atherosclerosis. Consolidation within the right lower lobe. Cholelithiasis. Stable right ureteral stent. Stable large decubitus ulcer. Electronically Signed: Janet Quezada MD at 23:12 EDT Tel , Service support , Medical Necessity - Tobacco Use Smoking Status: Current every day smoker Assessment/Plan All Active Problems (Last Updated 08/25/19 @ 08:[address] Samina Heredia MD) Cecum perforation (Acute) Multiple drug resistant Acinetobacter infection (Acute) Methicillin resistant Staphylococcus aureus infection (Acute) Severe sepsis (Acute) Sacral wound (Acute) UTI (urinary tract infection) (Acute) RECOMMENDATIONS: 1. Continue aggressive recruitment measures with incentive spirometer. 2. Tube feeds per surgery 3. Continue antimicrobials per infectious diseases recommendations. 4. Avoid oversedation with opiate pain medications. 5. Continue Depakote and seizure precautions. 6. Continue wound care 7. Decrease IV fluids to 75 cc/h, possibly discontinue later today if glucose is okay IMPRESSIONS: 1. Severe sepsis The patient has evidence of gram-negative bacteremia, most likely secondary to hematogenous spread from his sacral wound. The patient will be continued on broad-spectrum antimicrobials per ID recommendations. He is currently hemodynamically stable without need for vasopressor support. Patient's NG was in the midesophagus, but appears to be well below larynx with no obvious aspiration pattern on chest x-ray. Consolidation noted on CT of the chest is likely atelectasis. Continue aggressive recruitment measures. 2. Metabolic encephalopathy Continue current supportive measures as noted above. The patient has not demonstrated any active seizure activity. I do suspect that his residual lethargy is likely secondary to opiate pain medication utilization, combined with his underlying infectious process. 3. Coronary artery disease status post CABG/atrial fibrillation/unspecified seizure disorder/diabetes mellitus/GERD Complicates care, management, recovery and prognosis. Continue home medications as indicated. Physical therapy to work with the patient. 4. Hypernatremia/hyperchloremia Likely secondary to resuscitation efforts with normal saline. Patient on D5W at this time, but this is improving. Will decrease IV fluids for now, but likely okay to discontinue later today if glucose tolerates. Renal function remains acceptable. Slight elevation in liver enzymes noted. Inpatient E&M: [id number] [facility] L[facility]
--- NOTE | 2019-08-26 07:00 | NURSING ---
cathflo checked, unable to pull back or push cathflo in, will continue to monitor.
--- NOTE | 2019-08-26 08:19 | PCM.PN.SRG ---
Patient Problems: Active and Suspected Problems (Last Updated 08/25/19 @ 08:[address] Samina Heredia MD) Cecum perforation (Acute) Severe sepsis (Acute) Sacral wound (Acute) UTI (urinary tract infection) (Acute) Subjective: Patient is more alert able to say his birthday and name, Ostomy still putting out good stool, CT abdomen pelvis not showing thing acute, Patient wants something to drink/eat - Physical Exam Vitals/I&O's: Vital Signs Temp Pulse Resp BP Pulse Ox 100.2 F H 106 H 17 125/59 H 98 08/26/19 07:00 08/26/19 07:56 08/26/19 07:00 08/26/19 07:00 08/26/19 07:00 Oxygen Flow Rate (L/min) 1 Oxygen Delivery Method Room Air Weight: 283 lb 15.286 oz Body Mass Index (BMI) 41.8 Finger Stick Blood Glucose 191 Intake and Output for Last 24 Hours 08/24/19 08/25/19 08/26/19 23:59 23:59 23:59 Intake Total 5711.00 / 5711.00 5312.5 / 5712.5 2284.90 / 2284.90 Output Total 2950 / 3550 2225 / 3025 1525 / 1525 Balance 2761.00 / 2161.00 3087.5 / 2687.5 759.90 / 759.90 General: Alert, - - Oriented to self HEENT: Atraumatic Abdomen: Soft, Tender - Near incision and ostomy, incision clean dry and intact with dee, ostomy pink no signs of any retraction in good position. Microbiology Past 72 Hours 08/19/19 16:06 Tissue - Sacral Gram Stain - Final 08/19/19 16:06 Tissue - Sacral Wound Culture - Preliminary Providencia stuartii Acinetobacter baumannii Enterococcus faecium 08/19/19 16:06 Tissue - Sacral Anaerobic Culture - Final Bacteroides fragilis group Anaerobic cocci 08/19/19 16:06 Tissue - Sacral Gram Stain - Final 08/19/19 16:06 Tissue - Sacral Wound Culture - Final Escherichia coli Proteus mirabilis Providencia stuartii Meth. resistant Staph. aureus 08/19/19 16:06 Tissue - Sacral Anaerobic Culture - Final Bacteroides fragilis group Anaerobic cocci 08/19/19 12:50 Blood Culture (Wb) - Pic Blood Culture - Final No growth in 5 days. 08/18/19 11:33 Blood Culture (Wb) - Arm Right Blood Culture - Final No growth in 5 days. 08/18/19 16:10 Wound - Aerobic & Anaerobic Swabs Gram Stain - Final 08/18/19 16:10 Wound - Aerobic & Anaerobic Swabs Wound Culture - Final Escherichia coli Proteus mirabilis#2 Proteus mirabilis Vancomycin Resist. E. faecium 08/18/19 16:10 Wound - Aerobic & Anaerobic Swabs Anaerobic Culture - Final No anaerobic bacteria isolated. Laboratory Results 08/25/19 11:48: POC Glucose 137 H 08/25/19 14:45: Sodium 148 H, Potassium 3.7, Chloride 117 H, Carbon Dioxide 26.0, Anion Gap 5, BUN 29 H, Creatinine 0.70, Estim Creat Clear Calc 115.03, Est GFR (MDRD) Af Amer 148, Est GFR (MDRD) Non-Af 122, BUN/Creatinine Ratio 41.1 H, Glucose 155 H, Calcium 7.8 L 08/25/19 17:29: POC Glucose 118 H 08/26/19 00:05: POC Glucose 87 08/26/19 04:00: WBC 10.6, RBC 2.73 L, Hgb 7.9 L, Hct 27.1 L, MCV 99.3 H, MCH 28.9, MCHC 29.2 L, RDW Std Deviation 61.5 H, RDW Coeff of Tio 17.0 H, Plt Count 232, MPV 9.4, Immature Gran % (Auto) 0.900, Neut % (Auto) 71.3 H, Lymph % (Auto) 17.7 L, [place] % (Auto) 8.3, Eos % (Auto) 1.4, Baso % (Auto) 0.4, Absolute Neuts (auto) 7.6, Absolute Lymphs (auto) 1.88, Nucleated RBC % 0.2 08/26/19 04:00: Sodium 146 H, Potassium 3.5, Chloride 113 H, Carbon Dioxide 26.0, Anion Gap 7, BUN 26 H, Creatinine 0.68 L, Estim Creat Clear Calc 118.41, Est GFR (MDRD) Af Amer 153, Est GFR (MDRD) Non-Af 126, BUN/Creatinine Ratio 38.0 H, Glucose 110 H, Calcium 7.5 L, Total Creatine Kinase 111 08/26/19 05:11: POC Glucose 112 H Current Medications Acetaminophen (Tylenol Liquid) 650 mg GT Q6H PRN PRN PRN Reason: Pain Score 1-10/10 Last Admin: 08/25/19 09:47 Dose: 650 mg Documented by: Aspirin (Aspirin, Baby) 81 mg GT DAILY [facility] Last Admin: 08/25/19 09:42 Dose: 81 mg Documented by: Atorvastatin Calcium (Lipitor) 80 mg GT QHS [facility] Last Admin: 08/25/19 21:56 Dose: 80 mg Documented by: Calamine/Phenol (Calmoseptine Ointment) 1 applic TOPICAL TID [facility]; Protocol Last Admin: 08/26/19 05:08 Dose: 1 applicatio Documented by: Dextrose (D50w Syringe) 0 gm IV X1 PRN; Protocol PRN Reason: Hypoglycemia Diazepam (Valium) 5 mg GT Q6H PRN PRN PRN Reason: SPASMS Diltiazem HCl (Cardizem) 60 mg GT Q8 [facility] Last Admin: 08/26/19 05:08 Dose: 60 mg Documented by: Docusate Sodium (Colace Syrup) 100 mg GT BID [facility] Last Admin: 08/25/19 21:57 Dose: 100 mg Documented by: Enoxaparin Sodium (Lovenox) 40 mg SC DAILY [facility] Last Admin: 08/25/19 09:48 Dose: 40 mg Documented by: Famotidine (Pepcid) 20 mg GT DAILY [facility] Last Admin: 08/25/19 09:48 Dose: 20 mg Documented by: Fenofibrate (Tricor) 145 mg GT DAILY [facility] Last Admin: 08/25/19 09:49 Dose: 145 mg Documented by: Folic Acid (Folic Acid) 1 mg GT DAILY [facility] Last Admin: 08/25/19 09:42 Dose: 1 mg Documented by: Glucagon () 1 mg IM .X1 PRN PRN Reason: Hypoglycemia Meropenem 1 gm/ Sodium (Chloride) 120 mls @ 33 mls/hr IV Q8 [facility] Last Infusion: 08/26/19 05:12 Dose: 0 mls/hr Documented by: Sodium Chloride () 250 mls @ 15 mls/hr IV .[id number] PRN PRN Reason: Saline Flush Last Infusion: 08/23/19 11:24 Dose: Infused Documented by: Sodium Chloride () 250 mls @ 15 mls/hr IV .[id number] PRN PRN Reason: Additional IVPB Infusion Eravacycline 125 mg/ Sodium (Chloride) 262.5 mls @ 262.5 mls/hr IV Q12 [facility] Last Infusion: 08/25/19 22:47 Dose: Infused Documented by: Valproic Acid 750 mg/ Dextrose 57.5 mls @ 50 mls/hr IV Q8 [facility] Last Infusion: 08/26/19 06:18 Dose: Infused Documented by: Lactose (Pivot 1.5 Yousuf) 1,000 mls @ 10 mls/hr GT .Q48H [facility] Last Admin: 08/25/19 13:43 Dose: 10 mls/hr Documented by: Daptomycin 1,000 mg/ Sodium (Chloride) 70 mls @ 140 mls/hr IV Q24 [facility] Last Infusion: 08/25/19 18:47 Dose: Infused Documented by: Dextrose () 1,000 mls @ 75 mls/hr IV .[id number] [facility] Last Admin: 08/26/19 07:11 Dose: 75 mls/hr Documented by: Insulin Human Lispro (Humalog Kwikpen (Bkc)) 0 unit SC Q6H [facility]; Protocol Last Admin: 08/26/19 05:14 Dose: Not Given Documented by: Lactobacillus Acidophilus (Acidophilus) 2 tablet GT DAILY [facility] Last Admin: 08/25/19 09:42 Dose: 2 tablet Documented by: Metoprolol Tartrate (Lopressor (Beta Dana)) 100 mg GT BID [facility] Last Admin: 08/25/19 23:19 Dose: Not Given Documented by: Morphine Sulfate () 1 mg IV Q3H PRN PRN PRN Reason: Pain Score 6-10/10 Last Admin: 08/25/19 21:58 Dose: 1 mg Documented by: Nutritional Formula (Mike - [place] Flavor) 1 packet GT BID [facility] Last Admin: 08/25/19 21:56 Dose: 1 packet Documented by: Nystatin (Mycostatin Powder) 1 applic TOPICAL BID [facility]; Protocol Last Admin: 08/25/19 21:57 Dose: 1 applicatio Documented by: Polyethylene Glycol (Miralax) 17 gm GT DAILY [facility] Last Admin: 08/25/19 09:44 Dose: 17 gm Documented by: Promethazine HCl (Phenergan Tablet) 25 mg GT Q4H PRN PRN PRN Reason: NAUSEA/VOMITING Sodium Chloride () 10 - 40 ml IV UD PRN PRN Reason: SALINE FLUSH Last Admin: 08/24/19 17:14 Dose: 10 ml Documented by: Sodium Hypochlorite (Dakins Solution 0.25% (1/2 Strength)) 1 applic TOPICAL BID [facility]; Protocol Last Admin: 08/25/19 21:56 Dose: 1 applicatio Documented by: Medical Necessity - Tobacco Use Smoking Status: Current every day smoker Assessment/Plan All Active Problems (Last Updated 08/25/19 @ 08:[address] Samina Heredia MD) Cecum perforation (Acute) Multiple drug resistant Acinetobacter infection (Acute) Methicillin resistant Staphylococcus aureus infection (Acute) Severe sepsis (Acute) Sacral wound (Acute) UTI (urinary tract infection) (Acute) 59-year-old male status post end colostomy, ileocecectomy, sepsis due to infected sacral wound Continue tube feeds per nutrition recommendations, Will have a swallow eval this morning Good colostomy output-continue to monitor colostomy, Currently colostomy is pink, no signs of retraction Confusion improving. Antibiotics per ID. Did also discuss this with patient's POA Martha Manzano M.D. Pager: [phone] [facility] [address] [place] [address], [facility]patient [facility], [address] [place] [address] Office: [phone]
--- NOTE | 2019-08-26 08:29 | PN_ITS ---
Patient Problems: Active and Suspected Problems (Last Updated 08/25/19 @ 08:[address] Samina Heredia MD) Cecum perforation (Acute) Severe sepsis (Acute) Sacral wound (Acute) UTI (urinary tract infection) (Acute) Subjective: Chief complaint: Follow-up after admission for severe sepsis secondary to stage IV infected sacral decubitus ulcer/osteomyelitis status post excision with partial ostectomy for osteomyelitis, patient underwent diversion end colostomy that was complicated by perforation of the cecum status post laparoscopic ileocecectomy with primary anastomosis. Patient seen and examined. No acute events overnight. Today, patient is able to communicate, more alert and oriented. He knew his full name and his age. He was asking to drink something badly. He had some low blood pressure last night and his medication were held. He is still having spikes of low-grade fever, heart rate has been in the 110s, blood pressure stable, pulse ox is 97% on room air. - Physical Exam Vitals/I&O's: Vital Signs Temp Pulse Resp BP Pulse Ox 100.2 F H 106 H 17 125/59 H 98 08/26/19 07:00 08/26/19 07:56 08/26/19 07:00 08/26/19 07:00 08/26/19 07:00 Oxygen Flow Rate (L/min) 1 Oxygen Delivery Method Room Air Weight: 283 lb 15.286 oz Body Mass Index (BMI) 41.8 Finger Stick Blood Glucose 191 Intake and Output for Last 24 Hours 08/24/19 08/25/19 08/26/19 23:59 23:59 23:59 Intake Total 5711.00 / 5711.00 5312.5 / 5712.5 2284.90 / 2284.90 Output Total 2950 / 3550 2225 / 3025 1525 / 1525 Balance 2761.00 / 2161.00 3087.5 / 2687.5 759.90 / 759.90 General: Alert, Cooperative, No apparent distress, Confused, Disoriented HEENT: Atraumatic, PERRLA, EOMI, Normocephalic Oral: Moist Mucosa, No Gingival or Mucosal Lesions/ Ulcerations Neck: Supple, No JVD, Negative Carotid Bruits, Trachea Midline, Thyroid Normal Size and Texture Lungs: Clear to auscultation, No rhonchi, No wheeze, No rales, Diminished Cardiovascular: Regular rate, Regular Rhythm, Normal S1, Normal S2, PMI Normal, Tachycardic Abdomen: Bowel Sounds Present, Soft, Non Tender, Non-Distended, No Hepato- splenomegaly, Obese, - - Midline surgical incision is clean and dry. Colostomy bag in place, has formed stool in it. Extremities: No clubbing, No cyanosis, Edema Skin: No rashes, No breakdown Lymphatic: No Cervical, Supraclavicular, or Inguinal Adenopathy Neurological: Cranial nerves II-XII grossly intact, Neuro grossly intact Psych/Mental Status: Flat Affect Microbiology Past 72 Hours 08/19/19 16:06 Tissue - Sacral Gram Stain - Final 08/19/19 16:06 Tissue - Sacral Wound Culture - Preliminary Providencia stuartii Acinetobacter baumannii Enterococcus faecium 08/19/19 16:06 Tissue - Sacral Anaerobic Culture - Final Bacteroides fragilis group Anaerobic cocci 08/19/19 16:06 Tissue - Sacral Gram Stain - Final 08/19/19 16:06 Tissue - Sacral Wound Culture - Final Escherichia coli Proteus mirabilis Providencia stuartii Meth. resistant Staph. aureus 08/19/19 16:06 Tissue - Sacral Anaerobic Culture - Final Bacteroides fragilis group Anaerobic cocci 08/19/19 12:50 Blood Culture (Wb) - Pic Blood Culture - Final No growth in 5 days. 08/18/19 11:33 Blood Culture (Wb) - Arm Right Blood Culture - Final No growth in 5 days. 08/18/19 16:10 Wound - Aerobic & Anaerobic Swabs Gram Stain - Final 08/18/19 16:10 Wound - Aerobic & Anaerobic Swabs Wound Culture - Final Escherichia coli Proteus mirabilis#2 Proteus mirabilis Vancomycin Resist. E. faecium 08/18/19 16:10 Wound - Aerobic & Anaerobic Swabs Anaerobic Culture - Final No anaerobic bacteria isolated. Laboratory Results 08/25/19 11:48: POC Glucose 137 H 08/25/19 14:45: Sodium 148 H, Potassium 3.7, Chloride 117 H, Carbon Dioxide 26.0, Anion Gap 5, BUN 29 H, Creatinine 0.70, Estim Creat Clear Calc 115.03, Est GFR (MDRD) Af Amer 148, Est GFR (MDRD) Non-Af 122, BUN/Creatinine Ratio 41.1 H, Glucose 155 H, Calcium 7.8 L 08/25/19 17:29: POC Glucose 118 H 08/26/19 00:05: POC Glucose 87 08/26/19 04:00: WBC 10.6, RBC 2.73 L, Hgb 7.9 L, Hct 27.1 L, MCV 99.3 H, MCH 28.9, MCHC 29.2 L, RDW Std Deviation 61.5 H, RDW Coeff of Tio 17.0 H, Plt Count 232, MPV 9.4, Immature Gran % (Auto) 0.900, Neut % (Auto) 71.3 H, Lymph % (Auto) 17.7 L, [place] % (Auto) 8.3, Eos % (Auto) 1.4, Baso % (Auto) 0.4, Absolute Neuts (auto) 7.6, Absolute Lymphs (auto) 1.88, Nucleated RBC % 0.2 08/26/19 04:00: Sodium 146 H, Potassium 3.5, Chloride 113 H, Carbon Dioxide 26.0, Anion Gap 7, BUN 26 H, Creatinine 0.68 L, Estim Creat Clear Calc 118.41, Est GFR (MDRD) Af Amer 153, Est GFR (MDRD) Non-Af 126, BUN/Creatinine Ratio 38.0 H, Glucose 110 H, Calcium 7.5 L, Total Creatine Kinase 111 08/26/19 05:11: POC Glucose 112 H Current Medications Acetaminophen (Tylenol Liquid) 650 mg GT Q6H PRN PRN PRN Reason: Pain Score 1-10/10 Last Admin: 08/25/19 09:47 Dose: 650 mg Documented by: Aspirin (Aspirin, Baby) 81 mg GT DAILY [facility] Last Admin: 08/25/19 09:42 Dose: 81 mg Documented by: Atorvastatin Calcium (Lipitor) 80 mg GT QHS [facility] Last Admin: 08/25/19 21:56 Dose: 80 mg Documented by: Calamine/Phenol (Calmoseptine Ointment) 1 applic TOPICAL TID [facility]; Protocol Last Admin: 08/26/19 05:08 Dose: 1 applicatio Documented by: Dextrose (D50w Syringe) 0 gm IV X1 PRN; Protocol PRN Reason: Hypoglycemia Diazepam (Valium) 5 mg GT Q6H PRN PRN PRN Reason: SPASMS Diltiazem HCl (Cardizem) 60 mg GT Q8 [facility] Last Admin: 08/26/19 05:08 Dose: 60 mg Documented by: Docusate Sodium (Colace Syrup) 100 mg GT BID [facility] Last Admin: 08/25/19 21:57 Dose: 100 mg Documented by: Enoxaparin Sodium (Lovenox) 40 mg SC DAILY [facility] Last Admin: 08/25/19 09:48 Dose: 40 mg Documented by: Famotidine (Pepcid) 20 mg GT DAILY [facility] Last Admin: 08/25/19 09:48 Dose: 20 mg Documented by: Fenofibrate (Tricor) 145 mg GT DAILY [facility] Last Admin: 08/25/19 09:49 Dose: 145 mg Documented by: Folic Acid (Folic Acid) 1 mg GT DAILY [facility] Last Admin: 08/25/19 09:42 Dose: 1 mg Documented by: Glucagon () 1 mg IM .X1 PRN PRN Reason: Hypoglycemia Meropenem 1 gm/ Sodium (Chloride) 120 mls @ 33 mls/hr IV Q8 [facility] Last Infusion: 08/26/19 05:12 Dose: 0 mls/hr Documented by: Sodium Chloride () 250 mls @ 15 mls/hr IV .[id number] PRN PRN Reason: Saline Flush Last Infusion: 08/23/19 11:24 Dose: Infused Documented by: Sodium Chloride () 250 mls @ 15 mls/hr IV .[id number] PRN PRN Reason: Additional IVPB Infusion Eravacycline 125 mg/ Sodium (Chloride) 262.5 mls @ 262.5 mls/hr IV Q12 [facility] Last Infusion: 08/25/19 22:47 Dose: Infused Documented by: Valproic Acid 750 mg/ Dextrose 57.5 mls @ 50 mls/hr IV Q8 [facility] Last Infusion: 08/26/19 06:18 Dose: Infused Documented by: Lactose (Pivot 1.5 Yousuf) 1,000 mls @ 10 mls/hr GT .Q48H [facility] Last Admin: 08/25/19 13:43 Dose: 10 mls/hr Documented by: Daptomycin 1,000 mg/ Sodium (Chloride) 70 mls @ 140 mls/hr IV Q24 [facility] Last Infusion: 08/25/19 18:47 Dose: Infused Documented by: Dextrose () 1,000 mls @ 75 mls/hr IV .[id number] [facility] Last Admin: 08/26/19 07:11 Dose: 75 mls/hr Documented by: Insulin Human Lispro (Humalog Kwikpen (Bkc)) 0 unit SC Q6H [facility]; Protocol Last Admin: 08/26/19 05:14 Dose: Not Given Documented by: Lactobacillus Acidophilus (Acidophilus) 2 tablet GT DAILY [facility] Last Admin: 08/25/19 09:42 Dose: 2 tablet Documented by: Metoprolol Tartrate (Lopressor (Beta Dana)) 100 mg GT BID [facility] Last Admin: 08/25/19 23:19 Dose: Not Given Documented by: Morphine Sulfate () 1 mg IV Q3H PRN PRN PRN Reason: Pain Score 6-10/10 Last Admin: 08/25/19 21:58 Dose: 1 mg Documented by: Nutritional Formula (Mike - [place] Flavor) 1 packet GT BID [facility] Last Admin: 08/25/19 21:56 Dose: 1 packet Documented by: Nystatin (Mycostatin Powder) 1 applic TOPICAL BID [facility]; Protocol Last Admin: 08/25/19 21:57 Dose: 1 applicatio Documented by: Polyethylene Glycol (Miralax) 17 gm GT DAILY [facility] Last Admin: 08/25/19 09:44 Dose: 17 gm Documented by: Promethazine HCl (Phenergan Tablet) 25 mg GT Q4H PRN PRN PRN Reason: NAUSEA/VOMITING Sodium Chloride () 10 - 40 ml IV UD PRN PRN Reason: SALINE FLUSH Last Admin: 08/24/19 17:14 Dose: 10 ml Documented by: Sodium Hypochlorite (Dakins Solution 0.25% (1/2 Strength)) 1 applic TOPICAL BID [facility]; Protocol Last Admin: 08/25/19 21:56 Dose: 1 applicatio Documented by: Medical Necessity - Tobacco Use Smoking Status: Current every day smoker Assessment/Plan All Active Problems (Last Updated 08/25/19 @ 08:[address] Samina Heredia MD) Cecum perforation (Acute) Multiple drug resistant Acinetobacter infection (Acute) Methicillin resistant Staphylococcus aureus infection (Acute) Severe sepsis (Acute) Sacral wound (Acute) UTI (urinary tract infection) (Acute) This is a 59 years old male patient presented to the emergency room from the half-way because of change in mental status, found to have severe sepsis secondary to stage IV infected sacral decubitus ulcer, underwent excision with partial ostectomy for osteomyelitis, underwent diverting colostomy which was complicated by perforation of the cecum status post laparoscopic ileocecectomy with primary stenosis. #1 severe sepsis: Secondary to infected sacral stage IV decubitus ulcer/osteomyelitis as well as acute complicated cystitis. Currently, patient is on IV daptomycin, Eravacycline and meropenem. Zyvox discontinued. Leukocytosis resolved but patient still having spikes of low-grade fever. Blood, wound and urine culture reviewed as below. Patient still tachycardic, having spikes of fever, blood pressure is maintained. Critical care and infectious disease on the case. Plan to continue same treatment. #2 acute respiratory failure: Status post extubation. Currently, he is on room air and pulse ox is 97 %. #3 polymicrobial infected stage IV sacral decubitus ulcer/osteomyelitis: Status post excision and partial ostectomy for osteomyelitis, postoperative day 7. Patient remains on IV antibiotics as mentioned above. Wound culture revealed E. coli, Proteus mirabilis, Providencia stuartii and MRSA as well as vancomycin resistant Enterococcus faecium. Infectious disease on the case. #4 Enterobacter cloacae/staph epidermidis bacteremia: 1 bottle of blood culture was positive for mention bacteria. He is on IV antibiotics as above. Repeat blood cultures pending at this time. Infectious disease on the case, plan as above. #5 acute complicated cystitis: In the setting of chronic indwelling Chakraborty catheter. Patient was on IV antibiotics. Culture revealed presumptive Lilliam albicans. #6 acute metabolic encephalopathy: Attributed to severe sepsis. Today, patient is more alert and oriented although he remains confused to time and place. He is verbal today, able to answer simple questions. #7 status post diversion colostomy: That was complicated by perforation of the cecum, status post laparoscopic ileocecectomy and primary stenosis. He is tolerating tube feeds. Abdominal examination is benign. General surgery on the case. #8 elevated LFT: Likely due to severe sepsis. No right upper quadrant tenderness. Plan to monitor. #9 hyponatremia/hyperchloremia: Probably due to excessive IV fluid resuscitation. Patient is on IVs with D5 water. Today sodium is 146, chloride is 113. Both are improving. #10 type 2 diabetes mellitus: Blood sugar has been stable. He is on sliding scale only. Metformin held. #11 seizure disorder: Stable, continue IV valproic acid. #12 hypertension: Blood pressure is maintained at this time, continue metopr olol. #13 CAD status post CABG: Stable, no acute issues. Continue aspirin, statins, beta-blockers. #14 paroxysmal atrial fibrillation: Tachycardic, heart rate remained around 110. Continue Cardizem and metoprolol for rate control. He is not on anticoagulation. #15 DVT prophylaxis: Subcu Lovenox. This note was generated with [employer] dictation software. It may contain incorrect words, spelling, and punctuation that were not noted in checking the note before signing. Inpatient E&M: 89150 Subs Hosp L2
--- NOTE | 2019-08-26 09:11 | RAD_ITS ---
STUDY: X-RAY CHEST REASON FOR EXAM: Male, 59 years old. QUESTIONING PICC LINE PLACEMENT -- UNABLE TO FLUSH PICC LINE TECHNIQUE: Single AP portable view of the chest. COMPARISON: 08/24/2019 FINDINGS: Right-sided PICC line again noted. Tip is in the distal SVC. EKG leads overlie the chest. NG tube tip in the body the stomach Lungs are expanded with partial but not yet complete resolution of the previously noted bibasilar opacifications. There is no demonstrated pleural abnormality. Sternal cerclage wires and vascular clips are present from a prior sternotomy and coronary artery bypass graft procedure (CABG). Normal mediastinum and tony. Normal visualized pulmonary arteries. Normal visualized aortic arch and descending thoracic aorta. There are diffuse degenerative changes of the visualized thoracic spine. Normal visualized ribs, clavicles, and shoulders. There is no demonstrated abnormality of the visualized soft tissue structures of the upper abdomen. RAD/Chest 1 View (Portable) IMPRESSION: Right-sided PICC line tip in the distal SVC, no complications identified with the catheter. Partial but not yet complete resolution of the previously described bibasilar opacifications. Remote CABG Electronically Signed: Adam Clark MD at 9:58 EDT , Service support ,
[2019-08-26] MEDS: Metoprolol Tartrate 100 MG Tablet GT ×2 (09:18→21:09)
[2019-08-26] MEDS: Folic Acid 1 MG Tablet GT (09:18)
[2019-08-26] MEDS: Polyethylene Glycol 3350 17 GM PACKET GT (09:18)
[2019-08-26] MEDS: Famotidine 20 MG Tablet GT (09:18)
[2019-08-26] MEDS: Nystatin Powder 15gm Bottle 1 APPLIC TOPICAL ×2 (09:18→21:08)
[2019-08-26] MEDS: Docusate Sodium 100 MG/10 ML UDC GT ×2 (09:19→21:08)
[2019-08-26] MEDS: Enoxaparin 40 MG/0.4 ML Syringe SC (09:19)
[2019-08-26] MEDS: DAKIN'S SOL HALF STRENGTH (=0.25%) 1 APPLIC TOPICAL ×2 (09:20→21:45)
[2019-08-26] MEDS: Aspirin 81 MG TAB.CHEW GT (09:20)
[2019-08-26] MEDS: Acetaminophen 650 MG/20 ML UDC GT (09:28)
--- NOTE | 2019-08-26 10:10 | CASEMGMT ---
Social Work Note Pt not medically ready for discharge. SW faxed updated clinicals to [facility]. 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
--- NOTE | 2019-08-26 10:11 | NT.THERAPY_ITS ---
Nutrition Therapy Report - History Nutrition Services has been consulted to:: Manage nutrient details of diet order, Manage enteral nutrition Current diet / nutrition support order:: NPO; Pivot 1.5 via NG at 55mL/hour w/ 150mL H2O flush every 4 hours to provide 1980 calories, 123 g protein, and 1970mL total fluid per day; 1 packet Mike BID via NG. - Anthropometric Measurements Height:: 5 ft 9 in Weight:: 128.8 kg Body Mass Index (BMI):: 41.9 - Relevant Labs Relevant Labs:: WBC 15.1 K/mm3 (4.4-11.0) H 08/20/19 04:00 RBC 2.73 M/mm3 (4.6-6.2) L 08/26/19 04:00 Hgb 7.9 g/dL (13.0-16.5) L 08/26/19 04:00 Hct 27.1 % (40-54) L 08/26/19 04:00 MCV 99.3 fL (80-94) H 08/26/19 04:00 MCHC 29.2 g/dL (32-36) L 08/26/19 04:00 RDW Std Deviation 61.5 fl (35.1-43.9) H 08/26/19 04:00 RDW Coeff of Tio 17.0 % (11.6-14.6) H 08/26/19 04:00 Plt Count 484 K/mm3 (150-450) H 08/18/19 11:45 Immature Gran % (Auto) 1.000 % (0.0-0.9) H 08/25/19 06:30 Neut % (Auto) 71.3 % (47-70) H 08/26/19 04:00 Lymph % (Auto) 17.7 % (19-41) L 08/26/19 04:00 [place] % (Auto) 10.3 % (0-10) H 08/24/19 07:40 Absolute Neuts (auto) 8.2 X10^3/uL (2.0-7.7) H 08/21/19 03:05 Sodium 146 mmol/L (136-145) H 08/26/19 04:00 Chloride 113 mmol/L (98-107) H 08/26/19 04:00 Anion Gap 4 (5-15) L 08/20/19 04:00 BUN 26 mg/dL (7-18) H 08/26/19 04:00 Creatinine 0.68 mg/dL (0.70-1.30) L 08/26/19 04:00 BUN/Creatinine Ratio 38.0 RATIO (10-20) H 08/26/19 04:00 Glucose 110 mg/dL (74-106) H 08/26/19 04:00 Lactic Acid 3.6 mmol/L (0.4-1.9) H* 08/24/19 23:05 Calcium 7.5 mg/dL (8.5-10.1) L 08/26/19 04:00 Total Bilirubin 1.10 mg/dL (0.20-1.00) H 08/24/19 07:40 Direct Bilirubin 0.77 mg/dL (0.00-0.30) H 08/25/19 06:30 AST 190 U/L (15-37) H 08/25/19 06:30 ALT 129 U/L (16-61) H 08/25/19 06:30 Alkaline Phosphatase 297 U/L (45-117) H 08/25/19 06:30 Ammonia 50.0 umol/L (11-32) H 08/24/19 07:40 Albumin 1.5 g/dL (3.2-5.0) L 08/25/19 06:30 Globulin 5.2 g/dL (2.2-4.2) H 08/25/19 06:30 Albumin/Globulin Ratio 0.3 RATIO (0.9-2.4) L 08/24/19 07:40 Prealbumin 5.1 mg/dL (20.0-40.0) L 08/20/19 04:00 Triglycerides 502 mg/dL (-199) H 08/21/19 03:05 - Assessment Food / Nutrition-Related History:: Discussed in ICU rounds. Continues w/ nutrition support provided via NG- currently running at goal rate of 55mL/hour w/ 150mL flush every 4 hours. Tolerating well w/ minimal residuals. Per Dr. Matthew, ok for sips/chips and [employer] evaluation today. [employer] indicates pt is OK for puree/nectar thick consistencies. Wt decrease of 0.7kg since last review. Has bilat ankle pitting, generalized 2+ pitting, and bilat pedal 2+ pitting edema per nursing documentation. May see additional wt loss as fluid status improves. - Nutrition Diagnosis Problem / Etiology / Signs & Symptoms (PES):: Increased protein needs r/t stage IV pressure injury as evidenced by delayed wound healing, oral intake <50% of estimated nutritional needs for 3 days prior to enteral nutrition support in Evidence of Malnutrition Exists:: No - Nutrition Intervention Nutrition Prescription:: estimated needs: [id number] calories / 120-150 g protein/day. - Food / Nutrient Delivery Interventions Summary of nutrition intervention:: Will continue tube feeds via NG until pt able to tolerate PO diet. Nursing staff to confirm w/ Dr. Manzano if pt OK for regular diet or if clear/full liquids more appropriate this date. As pt tolerates regular diet, RDN will adjust tube feeds to encourage PO intake at meals. Continue Mike BID via NG- transition to PO when PO diet ordered. Will likely need ONS to provide additional protein for wound healing- will provide once PO diet advanced. Nutrition support ordered as / adjusted to:: Advance diet as tolerated to Carbohydrate controlled- consistency per [employer]. Glucerna 120mL 4x/day when PO diet ordered. Otherwise, continue Pivot 1.5 via NG at goal rate of 55mL/hour w/ 150mL H2O flush every 4 hours to provide 1980 calories, 123 g protein, and 1970mL per day. Will adjust tube feeds as PO diet advanced. Continue 1 packet Mike BID for wound healing. Nutrition education provided?: No - MNT Monitoring Further MNT monitoring and evaluation required?: Yes MNT Follow-up in:: 1-2 days
--- NOTE | 2019-08-26 10:23 | PCM.PN.ID ---
Patient Problems: Active and Suspected Problems (Last Updated 08/25/19 @ 08:[address] Samina Heredia MD) Cecum perforation (Acute) Severe sepsis (Acute) Sacral wound (Acute) UTI (urinary tract infection) (Acute) Subjective: More awake, denies pain, temps improved - Physical Exam Vitals/I&O's: Vital Signs Temp Pulse Resp BP Pulse Ox 100.2 F H 105 H 17 121/67 H 98 08/26/19 07:00 08/26/19 09:18 08/26/19 07:00 08/26/19 09:18 08/26/19 07:00 Oxygen Flow Rate (L/min) 1 Oxygen Delivery Method Room Air Weight: 128.8 kg Body Mass Index (BMI) 41.9 Finger Stick Blood Glucose 191 Intake and Output for Last 24 Hours 08/24/19 08/25/19 08/26/19 23:59 23:59 23:59 Intake Total 5711.00 / 5711.00 5312.5 / 5712.5 2284.90 / 2284.90 Output Total 2950 / 3550 2225 / 3025 1525 / 1525 Balance 2761.00 / 2161.00 3087.5 / 2687.5 759.90 / 759.90 General: Alert, No apparent distress Lungs: Clear to auscultation, Normal air movement Cardiovascular: Regular rate, Regular Rhythm Abdomen: Soft, Non Tender, Non-Distended Skin: Ulcer/ Wound Microbiology Past 72 Hours 08/19/19 16:06 Tissue - Sacral Gram Stain - Final 08/19/19 16:06 Tissue - Sacral Wound Culture - Preliminary Providencia stuartii Acinetobacter baumannii Enterococcus faecium 08/19/19 16:06 Tissue - Sacral Anaerobic Culture - Final Bacteroides fragilis group Anaerobic cocci 08/19/19 16:06 Tissue - Sacral Gram Stain - Final 08/19/19 16:06 Tissue - Sacral Wound Culture - Final Escherichia coli Proteus mirabilis Providencia stuartii Meth. resistant Staph. aureus 08/19/19 16:06 Tissue - Sacral Anaerobic Culture - Final Bacteroides fragilis group Anaerobic cocci 08/19/19 12:50 Blood Culture (Wb) - Pic Blood Culture - Final No growth in 5 days. 08/18/19 11:33 Blood Culture (Wb) - Arm Right Blood Culture - Final No growth in 5 days. 08/18/19 16:10 Wound - Aerobic & Anaerobic Swabs Gram Stain - Final 08/18/19 16:10 Wound - Aerobic & Anaerobic Swabs Wound Culture - Final Escherichia coli Proteus mirabilis#2 Proteus mirabilis Vancomycin Resist. E. faecium 08/18/19 16:10 Wound - Aerobic & Anaerobic Swabs Anaerobic Culture - Final No anaerobic bacteria isolated. Laboratory Results 08/25/19 11:48: POC Glucose 137 H 08/25/19 14:45: Sodium 148 H, Potassium 3.7, Chloride 117 H, Carbon Dioxide 26.0, Anion Gap 5, BUN 29 H, Creatinine 0.70, Estim Creat Clear Calc 115.03, Est GFR (MDRD) Af Amer 148, Est GFR (MDRD) Non-Af 122, BUN/Creatinine Ratio 41.1 H, Glucose 155 H, Calcium 7.8 L 08/25/19 17:29: POC Glucose 118 H 08/26/19 00:05: POC Glucose 87 08/26/19 04:00: WBC 10.6, RBC 2.73 L, Hgb 7.9 L, Hct 27.1 L, MCV 99.3 H, MCH 28.9, MCHC 29.2 L, RDW Std Deviation 61.5 H, RDW Coeff of Tio 17.0 H, Plt Count 232, MPV 9.4, Immature Gran % (Auto) 0.900, Neut % (Auto) 71.3 H, Lymph % (Auto) 17.7 L, [place] % (Auto) 8.3, Eos % (Auto) 1.4, Baso % (Auto) 0.4, Absolute Neuts (auto) 7.6, Absolute Lymphs (auto) 1.88, Nucleated RBC % 0.2 08/26/19 04:00: Sodium 146 H, Potassium 3.5, Chloride 113 H, Carbon Dioxide 26.0, Anion Gap 7, BUN 26 H, Creatinine 0.68 L, Estim Creat Clear Calc 118.41, Est GFR (MDRD) Af Amer 153, Est GFR (MDRD) Non-Af 126, BUN/Creatinine Ratio 38.0 H, Glucose 110 H, Calcium 7.5 L, Total Creatine Kinase 111 08/26/19 05:11: POC Glucose 112 H Current Medications Acetaminophen (Tylenol Liquid) 650 mg GT Q6H PRN PRN PRN Reason: Pain Score 1-10/10 Last Admin: 08/26/19 09:28 Dose: 650 mg Documented by: Aspirin (Aspirin, Baby) 81 mg GT DAILY [facility] Last Admin: 08/26/19 09:20 Dose: 81 mg Documented by: Atorvastatin Calcium (Lipitor) 80 mg GT QHS [facility] Last Admin: 08/25/19 21:56 Dose: 80 mg Documented by: Calamine/Phenol (Calmoseptine Ointment) 1 applic TOPICAL TID [facility]; Protocol Last Admin: 08/26/19 05:08 Dose: 1 applicatio Documented by: Dextrose (D50w Syringe) 0 gm IV X1 PRN; Protocol PRN Reason: Hypoglycemia Diazepam (Valium) 5 mg GT Q6H PRN PRN PRN Reason: SPASMS Diltiazem HCl (Cardizem) 60 mg GT Q8 [facility] Last Admin: 08/26/19 05:08 Dose: 60 mg Documented by: Docusate Sodium (Colace Syrup) 100 mg GT BID [facility] Last Admin: 08/26/19 09:19 Dose: 100 mg Documented by: Enoxaparin Sodium (Lovenox) 40 mg SC DAILY [facility] Last Admin: 08/26/19 09:19 Dose: 40 mg Documented by: Famotidine (Pepcid) 20 mg GT DAILY [facility] Last Admin: 08/26/19 09:18 Dose: 20 mg Documented by: Fenofibrate (Tricor) 145 mg GT DAILY [facility] Last Admin: 08/25/19 09:49 Dose: 145 mg Documented by: Folic Acid (Folic Acid) 1 mg GT DAILY [facility] Last Admin: 08/26/19 09:18 Dose: 1 mg Documented by: Glucagon () 1 mg IM .X1 PRN PRN Reason: Hypoglycemia Meropenem 1 gm/ Sodium (Chloride) 120 mls @ 33 mls/hr IV Q8 [facility] Last Infusion: 08/26/19 05:12 Dose: 0 mls/hr Documented by: Sodium Chloride () 250 mls @ 15 mls/hr IV .[id number] PRN PRN Reason: Saline Flush Last Infusion: 08/23/19 11:24 Dose: Infused Documented by: Sodium Chloride () 250 mls @ 15 mls/hr IV .[id number] PRN PRN Reason: Additional IVPB Infusion Eravacycline 125 mg/ Sodium (Chloride) 262.5 mls @ 262.5 mls/hr IV Q12 [facility] Last Infusion: 08/25/19 22:47 Dose: Infused Documented by: Valproic Acid 750 mg/ Dextrose 57.5 mls @ 50 mls/hr IV Q8 [facility] Last Infusion: 08/26/19 06:18 Dose: Infused Documented by: Lactose (Pivot 1.5 Yousuf) 1,000 mls @ 10 mls/hr GT .Q48H DAVE Last Admin: 08/25/19 13:43 Dose: 10 mls/hr Documented by: Daptomycin 1,000 mg/ Sodium (Chloride) 70 mls @ 140 mls/hr IV Q24 [facility] Last Infusion: 08/25/19 18:47 Dose: Infused Documented by: Dextrose () 1,000 mls @ 75 mls/hr IV .[id number] [facility] Last Admin: 08/26/19 07:11 Dose: 75 mls/hr Documented by: Insulin Human Lispro (Humalog Kwikpen (Bkc)) 0 unit SC Q6H [facility]; Protocol Last Admin: 08/26/19 05:14 Dose: Not Given Documented by: Lactobacillus Acidophilus (Acidophilus) 2 tablet GT DAILY [facility] Last Admin: 08/26/19 09:18 Dose: 2 tablet Documented by: Metoprolol Tartrate (Lopressor (Beta Dana)) 100 mg GT BID [facility] Last Admin: 08/26/19 09:18 Dose: 100 mg Documented by: Morphine Sulfate () 1 mg IV Q3H PRN PRN PRN Reason: Pain Score 6-10/10 Last Admin: 08/25/19 21:58 Dose: 1 mg Documented by: Nutritional Formula (Mike - Edgar Flavor) 1 packet GT BID [facility] Last Admin: 08/26/19 09:17 Dose: 1 packet Documented by: Nystatin (Mycostatin Powder) 1 applic TOPICAL BID [facility]; Protocol Last Admin: 08/26/19 09:18 Dose: 1 applicatio Documented by: Polyethylene Glycol (Miralax) 17 gm GT DAILY [facility] Last Admin: 08/26/19 09:18 Dose: 17 gm Documented by: Promethazine HCl (Phenergan Tablet) 25 mg GT Q4H PRN PRN PRN Reason: NAUSEA/VOMITING Sodium Chloride () 10 - 40 ml IV UD PRN PRN Reason: SALINE FLUSH Last Admin: 08/24/19 17:14 Dose: 10 ml Documented by: Sodium Hypochlorite (Dakins Solution 0.25% (1/2 Strength)) 1 applic TOPICAL BID DAVE; Protocol Last Admin: 08/26/19 09:20 Dose: 1 applicatio Documented by: Medical Necessity - Tobacco Use Smoking Status: Current every day smoker Route of nutrition/ use of supplements: [] Nutritional Intake: [] IV Site: [] Chakraborty Catheter: [] - Assessment/Plan Antibiotics: [] Assessment/Plan: [] Active and Suspected Problems (Last Updated 12/07/17 @ 08:57 by Shira Conte) Severe sepsis (Acute) Sacral wound (Acute) UTI (urinary tract infection) (Acute) severe sepsis with polymicrobial bacteremia, 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 OR 08/[address] Nguyễn for I&D. OR 08/[address] Crystal for diverting ostomy. On linezolid/gudelia/eravacycline. Wbc much improved. Wound cx with providencia, VRE, XDR Acinetobacter, MRSA, proteus. Bcx with enterobacter x2 and MRSE. Spoke with micro lab and requested additional susc testing for the AcB. VRE was R to linezolid, had fever, so 08/24 changed linezolid to dapto. Now fever and mental status much miproved. Given his extremely resistant bacteria, would keep in contact iso. Will follow
[2019-08-26 11:21] LABS: Bedside Glucose 130 mg/dL (70-110)
[2019-08-26] MEDS: Fenofibrate 145 MG Tablet GT (11:39)
[2019-08-26] MEDS: Pivot 1.5 Cal 1,000 ML 10 ML GT (16:10)
[2019-08-26 16:40] LABS: Bedside Glucose 148 mg/dL (70-110)
[2019-08-26] MEDS: Atorvastatin Calcium 80 MG Tablet GT (21:09)
[2019-08-26] MEDS: Morphine 2 MG/ML Syringe 1 MG IV (21:28)
[2019-08-26] MEDS: 0.9% Saline Lock 10 ML Syringe IV (21:29)
[2019-08-26 23:06] LABS: Bedside Glucose 115 mg/dL (70-110)
[2019-08-27] VITALS (22 sets, daily range): BP systolic 104–139; BP diastolic 46–89; PULSE 85–106; RESP 18–40; TEMP 36.7–38.2; O2SAT 92–100; BMI 42.2
[2019-08-27 04:49] LABS: Absolute Lymphocyte Count 1.66 X10^3/uL (0.83-4.51); Absolute Neutrophil Count 6.5 X10^3/uL (2.0-7.7); Basophil# 0.02 X10^3/uL; Basophil% 0.2 % (0-1); Eosinophil# 0.14 X10^3/uL; Eosinophils% 1.5 % (0-5); Hematocrit 26.8 % (40-54); Hemoglobin 8.2 g/dL (13.0-16.5); Lymphocyte # 1.66 X10^3/ul (4.0); Lymphocyte % 18.1 % (19-41); Mean Corp Hgb Conc 30.6 g/dL (32-36); Mean Corpuscular Hgb 29.4 pg (27.0-32.0); Mean Corpuscular Volume 96.1 fL (80-94); Mean Platelet Vol. 10.2 fl (6.2-12.0); Monocyte# 0.71 X10^3/uL; Monocyte% 7.8 % (0-10); NRBC Flagged by Analyzer 0.3 % (0-5); POSITIVE MORPHOLOGY YES; Platelet Count 225 K/mm3 (150-450); RBC Distribution Width CV 16.6 % (11.6-14.6); RBC Distribution Width SD 58.3 fl (35.1-43.9); Red Blood Count 2.79 M/mm3 (4.6-6.2); White Blood Count 9.2 K/mm3 (4.4-11.0)
[2019-08-27 04:51] LABS: Differential Indicated SCAN CRITERIA MET
[2019-08-27 05:09] LABS: Anion Gap 6 (5-15); BUN 28 mg/dL (7-18); BUN/Creat Ratio 41.5 RATIO (10-20); Calcium,Total 7.4 mg/dL (8.5-10.1); Chloride 109 mmol/L (98-107); Creatinine, Serum 0.68 mg/dL (0.70-1.30); EST Glomerular Filtration Rate 128 mL/min (>60); Est Glom Filt Rate - Afr Amer 155 mL/min (>60); Estimated Creatinine Clearance 118.41 ml/min; Glucose 145 mg/dL (74-106); Potassium 3.2 mmol/L (3.5-5.1); Sodium Level 141 mmol/L (136-145)
[2019-08-27 05:27] LABS: Atypical Lymphocyte RARE %
[2019-08-27 05:28] LABS: Differential Comment SCANNED
[2019-08-27] MEDS: dilTIAZem 30 MG Tablet 60 MG GT (05:37)
[2019-08-27] MEDS: Menthol/Lanolin/Calamine/Znox 113 GM Tube 1 APPLIC TOPICAL ×3 (05:37→23:11)
[2019-08-27 06:00] LABS: Bedside Glucose 128 mg/dL (70-110)
--- NOTE | 2019-08-27 07:13 | PCM.PN.INT ---
Subjective: Patient did well overnight. Patient is much more interactive this morning. Patient remains on room air and has been hemodynamically stable. Patient has been taking some p.o., but tolerating tube feeds. Patient reports some abdominal discomfort. General: Alert, Cooperative, No apparent distress, - - No conversational dyspnea HEENT: Atraumatic, PERRLA, EOMI, Normocephalic, - - No scleral icterus or injection noted Oral: Moist Mucosa, No Gingival or Mucosal Lesions/ Ulcerations Neck: Supple, No JVD, No Nodes, Trachea Midline Lungs: No rhonchi, No wheeze, Diminished, Rales - Bilateral bases posteriorly Cardiovascular: Regular rate, Normal S1, Normal S2, No murmurs, No rub noted, No Gallop Abdomen: Bowel Sounds Present, Soft, Non-Distended, Obese, Tender - Slightly, without rebound or guarding Extremities: No clubbing, No cyanosis, Edema Skin: No rashes, No breakdown Musculoskeletal: No Tenderness to Palpation of Joints or Extremities Lymphatic: No Cervical, Supraclavicular, or Inguinal Adenopathy Neurological: Cranial nerves II-XII grossly intact, Neuro grossly intact, Motor Exam 5/5 strength throughout Psych/Mental Status: Flat Affect Vital Signs Temp Pulse Resp BP Pulse Ox 38.2 C H 93 28 H 111/71 97 08/27/19 07:00 08/27/19 07:00 08/27/19 07:00 08/27/19 07:00 08/27/19 07:00 Oxygen Flow Rate (L/min) 2 Oxygen Delivery Method Room Air Weight: 129.7 kg Body Mass Index (BMI) 41.9 Finger Stick Blood Glucose 191 Intake and Output for Last 24 Hours 08/25/19 08/26/19 08/27/19 23:59 23:59 23:59 Intake Total 5312.5 / 5712.5 5033.25 / 5751.25 1628.5 / 1628.5 Output Total 2225 / 3025 2625 / 3465 1340 / 1340 Balance 3087.5 / 2687.5 2408.25 / 2286.25 288.5 / 288.5 Labs (Last 48 Hours) 08/25/19 08/25/19 08/25/19 11:48 14:45 17:29 WBC RBC Hgb Hct MCV MCH MCHC RDW Std Deviation RDW Coeff of Tio Plt Count MPV Immature Gran % (Auto) Neut % (Auto) Lymph % (Auto) [place] % (Auto) Eos % (Auto) Baso % (Auto) Absolute Neuts (auto) Absolute Lymphs (auto) Nucleated RBC % Differential Comment Atypical Lymphocytes Sodium 148 H Potassium 3.7 Chloride 117 H Carbon Dioxide 26.0 Anion Gap 5 BUN 29 H Creatinine 0.70 Estim Creat Clear Calc 115.03 Est GFR (MDRD) Af Amer 148 Est GFR (MDRD) Non-Af 122 BUN/Creatinine Ratio 41.1 H Glucose 155 H Calcium 7.8 L Total Creatine Kinase POC Glucose 137 H 118 H 08/26/19 08/26/19 08/26/19 00:05 04:00 04:00 WBC 10.6 RBC 2.73 L Hgb 7.9 L Hct 27.1 L MCV 99.3 H MCH 28.9 MCHC 29.2 L RDW Std Deviation 61.5 H RDW Coeff of Tio 17.0 H Plt Count 232 MPV 9.4 Immature Gran % (Auto) 0.900 Neut % (Auto) 71.3 H Lymph % (Auto) 17.7 L [place] % (Auto) 8.3 Eos % (Auto) 1.4 Baso % (Auto) 0.4 Absolute Neuts (auto) 7.6 Absolute Lymphs (auto) 1.88 Nucleated RBC % 0.2 Differential Comment Atypical Lymphocytes Sodium 146 H Potassium 3.5 Chloride 113 H Carbon Dioxide 26.0 Anion Gap 7 BUN 26 H Creatinine 0.68 L Estim Creat Clear Calc 118.41 Est GFR (MDRD) Af Amer 153 Est GFR (MDRD) Non-Af 126 BUN/Creatinine Ratio 38.0 H Glucose 110 H Calcium 7.5 L Total Creatine Kinase 111 POC Glucose 87 08/26/19 08/26/19 08/26/19 05:11 11:16 16:17 WBC RBC Hgb Hct MCV MCH MCHC RDW Std Deviation RDW Coeff of Tio Plt Count MPV Immature Gran % (Auto) Neut % (Auto) Lymph % (Auto) [place] % (Auto) Eos % (Auto) Baso % (Auto) Absolute Neuts (auto) Absolute Lymphs (auto) Nucleated RBC % Differential Comment Atypical Lymphocytes Sodium Potassium Chloride Carbon Dioxide Anion Gap BUN Creatinine Estim Creat Clear Calc Est GFR (MDRD) Af Amer Est GFR (MDRD) Non-Af BUN/Creatinine Ratio Glucose Calcium Total Creatine Kinase POC Glucose 112 H 130 H 148 H 08/26/19 08/27/19 08/27/19 22:57 04:40 04:40 WBC 9.2 RBC 2.79 L Hgb 8.2 L Hct 26.8 L MCV 96.1 H MCH 29.4 MCHC 30.6 L RDW Std Deviation 58.3 H RDW Coeff of Tio 16.6 H Plt Count 225 MPV 10.2 Immature Gran % (Auto) 1.400 H Neut % (Auto) 71.0 H Lymph % (Auto) 18.1 L [place] % (Auto) 7.8 Eos % (Auto) 1.5 Baso % (Auto) 0.2 Absolute Neuts (auto) 6.5 Absolute Lymphs (auto) 1.66 Nucleated RBC % 0.3 Differential Comment SCANNED Atypical Lymphocytes RARE Sodium 141 Potassium 3.2 L Chloride 109 H Carbon Dioxide 26.0 Anion Gap 6 BUN 28 H Creatinine 0.68 L Estim Creat Clear Calc 118.41 Est GFR (MDRD) Af Amer 155 Est GFR (MDRD) Non-Af 128 BUN/Creatinine Ratio 41.5 H Glucose 145 H Calcium 7.4 L Total Creatine Kinase POC Glucose 115 H 08/27/19 05:40 WBC RBC Hgb Hct MCV MCH MCHC RDW Std Deviation RDW Coeff of Tio Plt Count MPV Immature Gran % (Auto) Neut % (Auto) Lymph % (Auto) [place] % (Auto) Eos % (Auto) Baso % (Auto) Absolute Neuts (auto) Absolute Lymphs (auto) Nucleated RBC % Differential Comment Atypical Lymphocytes Sodium Potassium Chloride Carbon Dioxide Anion Gap BUN Creatinine Estim Creat Clear Calc Est GFR (MDRD) Af Amer Est GFR (MDRD) Non-Af BUN/Creatinine Ratio Glucose Calcium Total Creatine Kinase POC Glucose 128 H Microbiology 08/25/19 Unknown Blood Culture (Wb) - Arm Right Blood Culture - Preliminary 08/19/19 16:06 Tissue - Sacral Gram Stain - Final 08/19/19 16:06 Tissue - Sacral Wound Culture - Preliminary Providencia stuartii Acinetobacter baumannii Vancomycin Resist. E. faecium 08/19/19 16:06 Tissue - Sacral Anaerobic Culture - Final Bacteroides fragilis group Anaerobic cocci 08/19/19 16:06 Tissue - Sacral Gram Stain - Final 08/19/19 16:06 Tissue - Sacral Wound Culture - Final Escherichia coli Proteus mirabilis Providencia stuartii Meth. resistant Staph. aureus 08/19/19 16:06 Tissue - Sacral Anaerobic Culture - Final Bacteroides fragilis group Anaerobic cocci Clinical Impression(s) from Imaging Studies Chest X-Ray 08/26/19 09:11 IMPRESSION: Right-sided PICC line tip in the distal SVC, no complications identified with the catheter. Partial but not yet complete resolution of the previously described bibasilar opacifications. Remote CABG Electronically Signed: Adam Clark MD at 9:58 EDT , Service support , Medical Necessity - Tobacco Use Smoking Status: Current every day smoker Assessment/Plan All Active Problems (Last Updated 08/25/19 @ 08:[address] Samina Heredia MD) Cecum perforation (Acute) Multiple drug resistant Acinetobacter infection (Acute) Methicillin resistant Staphylococcus aureus infection (Acute) Severe sepsis (Acute) Sacral wound (Acute) UTI (urinary tract infection) (Acute) RECOMMENDATIONS: 1. Continue aggressive recruitment measures with incentive spirometer. 2. Tube feeds per surgery 3. Continue antimicrobials per infectious diseases recommendations. 4. Avoid oversedation with opiate pain medications. 5. Continue Depakote and seizure precautions. 6. Continue wound care 7. Stay off IV fluids if possible. 8. Likely okay to transfer from the intensive care unit from my perspective IMPRESSIONS: 1. Severe sepsis The patient has evidence of gram-negative bacteremia, most likely secondary to hematogenous spread from his sacral wound. The patient will be continued on broad-spectrum antimicrobials per ID recommendations. He is currently hemodynamically stable without need for vasopressor support. Patient's NG was in the midesophagus, but appears to be well below larynx with no obvious aspiration pattern on chest x-ray on initial transfer to the intensive care unit. Consolidation noted on CT of the chest is likely atelectasis and does appear improved on yesterday's chest x-ray. Continue aggressive recruitment measures. 2. Metabolic encephalopathy Continue current supportive measures as noted above. The patient has not demonstrated any active seizure activity. I do suspect that his residual lethargy is likely secondary to opiate pain medication utilization, combined with his underlying infectious process. 3. Coronary artery disease status post CABG/atrial fibrillation/unspecified seizure disorder/diabetes mellitus/GERD Complicates care, management, recovery and prognosis. Continue home medications as indicated. Physical therapy to work with the patient. 4. Hypernatremia/hyperchloremia Likely secondary to resuscitation efforts with normal saline. Attempt to keep off of IV fluids if possible. Dietitian is following. Renal function remains acceptable. Slight elevation in liver enzymes noted. Patient is reportedly +11 L during hospitalization, but weight is relatively stable. We will hold off on any diuretic therapy for now. Inpatient E&M: [id number] [facility] L[facility]
--- NOTE | 2019-08-27 07:55 | PN.SURG_ITS ---
Patient Problems: Active and Suspected Problems (Last Updated 08/25/19 @ 08:[address] Samina Heredia MD) Cecum perforation (Acute) Severe sepsis (Acute) Sacral wound (Acute) UTI (urinary tract infection) (Acute) Subjective: Patient is even more alert and interactive today - Physical Exam Vitals/I&O's: Vital Signs Temp Pulse Resp BP Pulse Ox 100.6 F H 93 23 H 111/71 99 08/27/19 07:27 08/27/19 07:27 08/27/19 07:27 08/27/19 07:27 08/27/19 07:27 Oxygen Flow Rate (L/min) 2 Oxygen Delivery Method Nasal Cannula Weight: 285 lb 15.033 oz Body Mass Index (BMI) 41.9 Finger Stick Blood Glucose 191 Intake and Output for Last 24 Hours 08/25/19 08/26/19 08/27/19 23:59 23:59 23:59 Intake Total 5312.5 / 5712.5 5033.25 / 5751.25 1628.5 / 1628.5 Output Total 2225 / 3025 2625 / 3465 1340 / 1340 Balance 3087.5 / 2687.5 2408.25 / 2286.25 288.5 / 288.5 General: Alert, Cooperative, No apparent distress Lungs: Normal air movement Abdomen: Soft, Tender - Incision and in the right lower quadrant, dee removed from right lower quadrant seroma drain no sign of infection. Colostomy does have small area of retraction we will plan to replace sutures at that area. Microbiology Past 72 Hours 08/25/19 Unknown Blood Culture (Wb) - Arm Right Blood Culture - Preliminary 08/19/19 16:06 Tissue - Sacral Gram Stain - Final 08/19/19 16:06 Tissue - Sacral Wound Culture - Preliminary Providencia stuartii Acinetobacter baumannii Vancomycin Resist. E. faecium 08/19/19 16:06 Tissue - Sacral Anaerobic Culture - Final Bacteroides fragilis group Anaerobic cocci 08/19/19 16:06 Tissue - Sacral Gram Stain - Final 08/19/19 16:06 Tissue - Sacral Wound Culture - Final Escherichia coli Proteus mirabilis Providencia stuartii Meth. resistant Staph. aureus 08/19/19 16:06 Tissue - Sacral Anaerobic Culture - Final Bacteroides fragilis group Anaerobic cocci 08/19/19 12:50 Blood Culture (Wb) - Pic Blood Culture - Final No growth in 5 days. Laboratory Results 08/26/19 11:16: POC Glucose 130 H 08/26/19 16:17: POC Glucose 148 H 08/26/19 22:57: POC Glucose 115 H 08/27/19 04:40: WBC 9.2, RBC 2.79 L, Hgb 8.2 L, Hct 26.8 L, MCV 96.1 H, MCH 29.4, MCHC 30.6 L, RDW Std Deviation 58.3 H, RDW Coeff of Tio 16.6 H, Plt Count 225, MPV 10.2, Immature Gran % (Auto) 1.400 H, Neut % (Auto) 71.0 H, Lymph % (Auto) 18.1 L, [place] % (Auto) 7.8, Eos % (Auto) 1.5, Baso % (Auto) 0.2, Absolute Neuts (auto) 6.5, Absolute Lymphs (auto) 1.66, Nucleated RBC % 0.3, Differential Comment SCANNED, Atypical Lymphocytes RARE 08/27/19 04:40: Sodium 141, Potassium 3.2 L, Chloride 109 H, Carbon Dioxide 26.0, Anion Gap 6, BUN 28 H, Creatinine 0.68 L, Estim Creat Clear Calc 118.41, Est GFR (MDRD) Af Amer 155, Est GFR (MDRD) Non-Af 128, BUN/Creatinine Ratio 41.5 H, Glucose 145 H, Calcium 7.4 L 08/27/19 05:40: POC Glucose 128 H Current Medications Acetaminophen (Tylenol Liquid) 650 mg GT Q6H PRN PRN PRN Reason: Pain Score 1-10/10 Last Admin: 08/26/19 09:28 Dose: 650 mg Documented by: Aspirin (Aspirin, Baby) 81 mg GT DAILY [facility] Last Admin: 08/26/19 09:20 Dose: 81 mg Documented by: Atorvastatin Calcium (Lipitor) 80 mg GT QHS [facility] Last Admin: 08/26/19 21:09 Dose: 80 mg Documented by: Calamine/Phenol (Calmoseptine Ointment) 1 applic TOPICAL TID DAVE; Protocol Last Admin: 08/27/19 05:37 Dose: 1 applicatio Documented by: Dextrose (D50w Syringe) 0 gm IV X1 PRN; Protocol PRN Reason: Hypoglycemia Diazepam (Valium) 5 mg GT Q6H PRN PRN PRN Reason: SPASMS Diltiazem HCl (Cardizem) 60 mg GT Q8 [facility] Last Admin: 08/27/19 05:37 Dose: 60 mg Documented by: Docusate Sodium (Colace Syrup) 100 mg GT BID [facility] Last Admin: 08/26/19 21:08 Dose: 100 mg Documented by: Enoxaparin Sodium (Lovenox) 40 mg SC DAILY [facility] Last Admin: 08/26/19 09:19 Dose: 40 mg Documented by: Famotidine (Pepcid) 20 mg GT DAILY [facility] Last Admin: 08/26/19 09:18 Dose: 20 mg Documented by: Fenofibrate (Tricor) 145 mg GT DAILY [facility] Last Admin: 08/26/19 11:39 Dose: 145 mg Documented by: Folic Acid (Folic Acid) 1 mg GT DAILY [facility] Last Admin: 08/26/19 09:18 Dose: 1 mg Documented by: Glucagon () 1 mg IM .X1 PRN PRN Reason: Hypoglycemia Meropenem 1 gm/ Sodium (Chloride) 120 mls @ 33 mls/hr IV Q8 [facility] Last Admin: 08/27/19 05:41 Dose: 33 mls/hr Documented by: Sodium Chloride () 250 mls @ 15 mls/hr IV .[id number] PRN PRN Reason: Saline Flush Last Infusion: 08/23/19 11:24 Dose: Infused Documented by: Sodium Chloride () 250 mls @ 15 mls/hr IV .[id number] PRN PRN Reason: Additional IVPB Infusion Eravacycline 125 mg/ Sodium (Chloride) 262.5 mls @ 262.5 mls/hr IV Q12 [facility] Last Infusion: 08/26/19 22:46 Dose: Infused Documented by: Valproic Acid 750 mg/ Dextrose 57.5 mls @ 50 mls/hr IV Q8 [facility] Last Infusion: 08/27/19 06:39 Dose: Infused Documented by: Lactose (Pivot 1.5 Yousuf) 1,000 mls @ 10 mls/hr GT .Q48H [facility] Last Admin: 08/26/19 16:10 Dose: 10 mls/hr Documented by: Daptomycin 1,000 mg/ Sodium (Chloride) 70 mls @ 140 mls/hr IV Q24 [facility] Last Infusion: 08/26/19 20:06 Dose: Infused Documented by: Dextrose () 1,000 mls @ 75 mls/hr IV .[id number] [facility] Last Admin: 08/26/19 20:43 Dose: 75 mls/hr Documented by: Insulin Human Lispro (Humalog Kwikpen (Bkc)) 0 unit SC Q6H [facility]; Protocol Last Admin: 08/27/19 05:54 Dose: Not Given Documented by: Lactobacillus Acidophilus (Acidophilus) 2 tablet GT DAILY [facility] Last Admin: 08/26/19 09:18 Dose: 2 tablet Documented by: Metoprolol Tartrate (Lopressor (Beta Dana)) 100 mg GT BID [facility] Last Admin: 08/26/19 21:09 Dose: 100 mg Documented by: Morphine Sulfate () 1 mg IV Q3H PRN PRN PRN Reason: Pain Score 6-10/10 Last Admin: 08/26/19 21:28 Dose: 1 mg Documented by: Nutritional Formula (Mike - [place] Flavor) 1 packet GT BID [facility] Last Admin: 08/26/19 21:08 Dose: 1 packet Documented by: Nystatin (Mycostatin Powder) 1 applic TOPICAL BID DAVE; Protocol Last Admin: 08/26/19 21:08 Dose: 1 applicatio Documented by: Polyethylene Glycol (Miralax) 17 gm GT DAILY [facility] Last Admin: 08/26/19 09:18 Dose: 17 gm Documented by: Promethazine HCl (Phenergan Tablet) 25 mg GT Q4H PRN PRN PRN Reason: NAUSEA/VOMITING Sodium Chloride () 10 - 40 ml IV UD PRN PRN Reason: SALINE FLUSH Last Admin: 08/26/19 21:29 Dose: 20 ml Documented by: Sodium Hypochlorite (Dakins Solution 0.25% (1/2 Strength)) 1 applic TOPICAL BID DAVE; Protocol Last Admin: 08/26/19 21:45 Dose: 1 applicatio Documented by: Medical Necessity - Tobacco Use Smoking Status: Current every day smoker Assessment/Plan All Active Problems (Last Updated 08/25/19 @ 08:[address] Samina Heredia MD) Cecum perforation (Acute) Multiple drug resistant Acinetobacter infection (Acute) Methicillin resistant Staphylococcus aureus infection (Acute) Severe sepsis (Acute) Sacral wound (Acute) UTI (urinary tract infection) (Acute) 59-year-old male status post end colostomy, ileocecectomy, sepsis due to infected sacral wound Patient did well with his swallow eval is on nectar thickened will advance to full's we will continue tube feeds until I think he is able to take adequate amount p.o. Good colostomy output-patient does have a small area of retraction in the right mid area of the stoma the rest is pink, we will plan to re-suture this area at bedside. Patient much more interactive and alert. Antibiotics per ID. Did also discuss this with patient's POA Martha Manzano M.D. Pager: [phone] [facility] [address] [place] [address], [facility], [address] [place] [id number] Office: [phone]
--- NOTE | 2019-08-27 08:34 | PCM.PROGNOTE ---
Patient Problems: Active and Suspected Problems (Last Updated 08/25/19 @ 08:[address] Samina Heredia MD) Cecum perforation (Acute) Severe sepsis (Acute) Sacral wound (Acute) UTI (urinary tract infection) (Acute) Subjective: Chief complaint: Follow-up after admission for severe sepsis secondary to stage IV infected sacral decubitus ulcer/osteomyelitis status post excision with partial ostectomy for osteomyelitis, patient underwent diversion end colostomy that was complicated by perforation of the cecum status post laparoscopic ileocecectomy with primary anastomosis. Patient seen and examined. No acute events overnight. This morning, he is more interactive. He was asking for something to drink, a pop. He has been tolerating tube feeds. He is still having spikes of low-grade fever, blood pressure stable, pulse ox is 98% on room air. - Physical Exam Vitals/I&O's: Vital Signs Temp Pulse Resp BP Pulse Ox 100.6 F H 93 23 H 111/71 99 08/27/19 07:27 08/27/19 07:27 08/27/19 07:27 08/27/19 07:27 08/27/19 07:27 Oxygen Flow Rate (L/min) 2 Oxygen Delivery Method Nasal Cannula Weight: 285 lb 15.033 oz Body Mass Index (BMI) 41.9 Finger Stick Blood Glucose 191 Intake and Output for Last 24 Hours 08/25/19 08/26/19 08/27/19 23:59 23:59 23:59 Intake Total 5312.5 / 5712.5 5033.25 / 5751.25 1628.5 / 1628.5 Output Total 2225 / 3025 2625 / 3465 1340 / 1340 Balance 3087.5 / 2687.5 2408.25 / 2286.25 288.5 / 288.5 General: Alert, Cooperative, No apparent distress, - - More alert and interactive. HEENT: Atraumatic, PERRLA, EOMI, Normocephalic Oral: Moist Mucosa, No Gingival or Mucosal Lesions/ Ulcerations Neck: Supple, No JVD, Negative Carotid Bruits, Trachea Midline, Thyroid Normal Size and Texture Lungs: No rhonchi, No wheeze, Diminished, Rales, Short of Breath, - - Decreased breath sounds at the bases, faint basilar crackles. Cardiovascular: Regular rate, Regular Rhythm, Normal S1, Normal S2, PMI Normal Abdomen: Bowel Sounds Present, Soft, Non-Distended, No Hepato-splenomegaly, Tender - Midline incision is dry and clean, colostomy bag in place. Extremities: No clubbing, No cyanosis, Edema Skin: No rashes, No breakdown Lymphatic: No Cervical, Supraclavicular, or Inguinal Adenopathy Neurological: Cranial nerves II-XII grossly intact, Neuro grossly intact Psych/Mental Status: Flat Affect Microbiology Past 72 Hours 08/25/19 Unknown Blood Culture (Wb) - Arm Right Blood Culture - Preliminary 08/19/19 16:06 Tissue - Sacral Gram Stain - Final 08/19/19 16:06 Tissue - Sacral Wound Culture - Preliminary Providencia stuartii Acinetobacter baumannii Vancomycin Resist. E. faecium 08/19/19 16:06 Tissue - Sacral Anaerobic Culture - Final Bacteroides fragilis group Anaerobic cocci 08/19/19 16:06 Tissue - Sacral Gram Stain - Final 08/19/19 16:06 Tissue - Sacral Wound Culture - Final Escherichia coli Proteus mirabilis Providencia stuartii Meth. resistant Staph. aureus 08/19/19 16:06 Tissue - Sacral Anaerobic Culture - Final Bacteroides fragilis group Anaerobic cocci 08/19/19 12:50 Blood Culture (Wb) - Pic Blood Culture - Final No growth in 5 days. Laboratory Results 08/26/19 11:16: POC Glucose 130 H 08/26/19 16:17: POC Glucose 148 H 08/26/19 22:57: POC Glucose 115 H 08/27/19 04:40: WBC 9.2, RBC 2.79 L, Hgb 8.2 L, Hct 26.8 L, MCV 96.1 H, MCH 29.4, MCHC 30.6 L, RDW Std Deviation 58.3 H, RDW Coeff of Tio 16.6 H, Plt Count 225, MPV 10.2, Immature Gran % (Auto) 1.400 H, Neut % (Auto) 71.0 H, Lymph % (Auto) 18.1 L, Bailey % (Auto) 7.8, Eos % (Auto) 1.5, Baso % (Auto) 0.2, Absolute Neuts (auto) 6.5, Absolute Lymphs (auto) 1.66, Nucleated RBC % 0.3, Differential Comment SCANNED, Atypical Lymphocytes RARE 08/27/19 04:40: Sodium 141, Potassium 3.2 L, Chloride 109 H, Carbon Dioxide 26.0, Anion Gap 6, BUN 28 H, Creatinine 0.68 L, Estim Creat Clear Calc 118.41, Est GFR (MDRD) Af Amer 155, Est GFR (MDRD) Non-Af 128, BUN/Creatinine Ratio 41.5 H, Glucose 145 H, Calcium 7.4 L 08/27/19 05:40: POC Glucose 128 H Current Medications Acetaminophen (Tylenol Liquid) 650 mg GT Q6H PRN PRN PRN Reason: Pain Score 1-1010 Last Admin: 08/26/19 09:28 Dose: 650 mg Documented by: Aspirin (Aspirin, Baby) 81 mg GT DAILY [facility] Last Admin: 08/26/19 09:20 Dose: 81 mg Documented by: Atorvastatin Calcium (Lipitor) 80 mg GT QHS [facility] Last Admin: 08/26/19 21:09 Dose: 80 mg Documented by: Calamine/Phenol (Calmoseptine Ointment) 1 applic TOPICAL TID [facility]; Protocol Last Admin: 08/27/19 05:37 Dose: 1 applicatio Documented by: Dextrose (D50w Syringe) 0 gm IV X1 PRN; Protocol PRN Reason: Hypoglycemia Diazepam (Valium) 5 mg GT Q6H PRN PRN PRN Reason: SPASMS Diltiazem HCl (Cardizem) 60 mg GT Q8 [facility] Last Admin: 08/27/19 05:37 Dose: 60 mg Documented by: Docusate Sodium (Colace Syrup) 100 mg GT BID [facility] Last Admin: 08/26/19 21:08 Dose: 100 mg Documented by: Enoxaparin Sodium (Lovenox) 40 mg SC DAILY [facility] Last Admin: 08/26/19 09:19 Dose: 40 mg Documented by: Famotidine (Pepcid) 20 mg GT DAILY [facility] Last Admin: 08/26/19 09:18 Dose: 20 mg Documented by: Fenofibrate (Tricor) 145 mg GT DAILY [facility] Last Admin: 08/26/19 11:39 Dose: 145 mg Documented by: Folic Acid (Folic Acid) 1 mg GT DAILY [facility] Last Admin: 08/26/19 09:18 Dose: 1 mg Documented by: Glucagon () 1 mg IM .X1 PRN PRN Reason: Hypoglycemia Meropenem 1 gm/ Sodium (Chloride) 120 mls @ 33 mls/hr IV Q8 [facility] Last Admin: 08/27/19 05:41 Dose: 33 mls/hr Documented by: Sodium Chloride () 250 mls @ 15 mls/hr IV .[id number] PRN PRN Reason: Saline Flush Last Infusion: 08/23/19 11:24 Dose: Infused Documented by: Sodium Chloride () 250 mls @ 15 mls/hr IV .[id number] PRN PRN Reason: Additional IVPB Infusion Eravacycline 125 mg/ Sodium (Chloride) 262.5 mls @ 262.5 mls/hr IV Q12 [facility] Last Infusion: 08/26/19 22:46 Dose: Infused Documented by: Valproic Acid 750 mg/ Dextrose 57.5 mls @ 50 mls/hr IV Q8 [facility] Last Infusion: 08/27/19 06:39 Dose: Infused Documented by: Lactose (Pivot 1.5 Yousuf) 1,000 mls @ 10 mls/hr GT .Q48H [facility] Last Admin: 08/26/19 16:10 Dose: 10 mls/hr Documented by: Daptomycin 1,000 mg/ Sodium (Chloride) 70 mls @ 140 mls/hr IV Q24 [facility] Last Infusion: 08/26/19 20:06 Dose: Infused Documented by: Dextrose () 1,000 mls @ 75 mls/hr IV .[id number] [facility] Last Admin: 08/26/19 20:43 Dose: 75 mls/hr Documented by: Insulin Human Lispro (Humalog Kwikpen (Bkc)) 0 unit SC Q6H [facility]; Protocol Last Admin: 08/27/19 05:54 Dose: Not Given Documented by: Lactobacillus Acidophilus (Acidophilus) 2 tablet GT DAILY [facility] Last Admin: 08/26/19 09:18 Dose: 2 tablet Documented by: Metoprolol Tartrate (Lopressor (Beta Dana)) 100 mg GT BID [facility] Last Admin: 08/26/19 21:09 Dose: 100 mg Documented by: Morphine Sulfate () 1 mg IV Q3H PRN PRN PRN Reason: Pain Score 6-10/10 Last Admin: 08/26/19 21:28 Dose: 1 mg Documented by: Nutritional Formula (Mike - [place] Flavor) 1 packet GT BID [facility] Last Admin: 08/26/19 21:08 Dose: 1 packet Documented by: Nystatin (Mycostatin Powder) 1 applic TOPICAL BID [facility]; Protocol Last Admin: 08/26/19 21:08 Dose: 1 applicatio Documented by: Polyethylene Glycol (Miralax) 17 gm GT DAILY [facility] Last Admin: 08/26/19 09:18 Dose: 17 gm Documented by: Potassium Chloride (K-Dur) 20 meq GT BIDCM [facility] Promethazine HCl (Phenergan Tablet) 25 mg GT Q4H PRN PRN PRN Reason: NAUSEA/VOMITING Sodium Chloride () 10 - 40 ml IV UD PRN PRN Reason: SALINE FLUSH Last Admin: 08/26/19 21:29 Dose: 20 ml Documented by: Sodium Hypochlorite (Dakins Solution 0.25% (1/2 Strength)) 1 applic TOPICAL BID [facility]; Protocol Last Admin: 08/26/19 21:45 Dose: 1 applicatio Documented by: Medical Necessity - Tobacco Use Smoking Status: Current every day smoker Assessment/Plan All Active Problems (Last Updated 08/25/19 @ 08:[address] Samina Heredia MD) Cecum perforation (Acute) Multiple drug resistant Acinetobacter infection (Acute) Methicillin resistant Staphylococcus aureus infection (Acute) Severe sepsis (Acute) Sacral wound (Acute) UTI (urinary tract infection) (Acute) This is a 59 years old male patient presented to the emergency room from the senior living because of change in mental status, found to have severe sepsis secondary to stage IV infected sacral decubitus ulcer, underwent excision with partial ostectomy for osteomyelitis, underwent diverting colostomy which was complicated by perforation of the cecum status post laparoscopic ileocecectomy with primary anastomosis. #1 severe sepsis: Secondary to infected sacral stage IV decubitus ulcer/osteomyelitis as well as acute complicated cystitis. Remained on IV daptomycin, Eravacycline and meropenem. He is still having spikes of low-grade fever, leukocytosis resolved. Blood, wound and urine culture reviewed as below. Heart rate stabilized, blood pressure stable. Infectious disease on the case. Plan: Transfer to PCU, replace potassium, repeat CBC and BMP tomorrow morning. #2 acute respiratory failure: Status post extubation. Currently, he is on room air and pulse ox is 98 %. #3 polymicrobial infected stage IV sacral decubitus ulcer/osteomyelitis: Status post excision and partial ostectomy for osteomyelitis, postoperative day 8. Patient remains on IV antibiotics as mentioned above. Wound culture revealed E. coli, Proteus mirabilis, Providencia stuartii and MRSA as well as vancomycin resistant Enterococcus faecium. Infectious disease on the case. #4 Enterobacter cloacae/staph epidermidis bacteremia: He is on IV daptomycin, meropenem and ERAVACYCLINE. Repeat blood culture also positive for gram-positive cocci. Infectious disease on the case, plan as above. #5 acute complicated cystitis: In the setting of chronic indwelling Chakraborty catheter. Patient was on IV antibiotics. Culture revealed presumptive Lilliam albicans. #6 acute metabolic encephalopathy: Attributed to severe sepsis. Patient has been becoming more interactive, more alert, remains sometimes confused. #7 status post diversion colostomy: That was complicated by perforation of the cecum, status post laparoscopic ileocecectomy and primary stenosis. He is tolerating tube feeds, started on clear liquids by mouth. Abdominal examination is benign. General surgery on the case. #8 elevated LFT: Likely due to severe sepsis. No right upper quadrant tenderness. Plan to monitor. #9 hypernatremia/hypokalemia: Serum sodium is down to normal. Serum potassium is low at 3.2. Patient started on potassium supplement. Kidney function is normal. #10 type 2 diabetes mellitus: Blood sugar has been stable. He is on sliding scale only. Metformin held. #11 seizure disorder: Stable, continue IV valproic acid. #12 hypertension: Blood pressure is maintained at this time, continue metoprolol. #13 CAD status post CABG: Stable, no acute issues. Continue aspirin, statins, beta-blockers. #14 paroxysmal atrial fibrillation: Heart rate is down to 90s, improved. ontinue Cardizem and metoprolol for rate control. He is not on anticoagulation. #15 DVT prophylaxis: Subcu Lovenox. This note was generated with [employer] dictation software. It may contain incorrect words, spelling, and punctuation that were not noted in checking the note before signing. Inpatient E&M: 74220 Subs Hosp L2
[2019-08-27] MEDS: Docusate Sodium 100 MG/10 ML UDC GT (09:03)
[2019-08-27] MEDS: Enoxaparin 40 MG/0.4 ML Syringe SC (09:04)
[2019-08-27] MEDS: Famotidine 20 MG Tablet GT (09:05)
[2019-08-27] MEDS: Aspirin 81 MG TAB.CHEW GT (09:05)
[2019-08-27] MEDS: Folic Acid 1 MG Tablet GT (09:06)
[2019-08-27 09:07] LABS: Magnesium 2.1 mg/dL (1.6-2.6)
[2019-08-27] MEDS: Fenofibrate 145 MG Tablet GT (09:07)
[2019-08-27] MEDS: Nystatin Powder 15gm Bottle 1 APPLIC TOPICAL (09:07)
[2019-08-27] MEDS: Polyethylene Glycol 3350 17 GM PACKET GT (09:09)
[2019-08-27] MEDS: Metoprolol Tartrate 100 MG Tablet GT (09:13)
[2019-08-27] MEDS: DAKIN'S SOL HALF STRENGTH (=0.25%) 1 APPLIC TOPICAL ×2 (11:03→23:11)
[2019-08-27 11:30] LABS: Bedside Glucose 120 mg/dL (70-110)
--- NOTE | 2019-08-27 12:18 | PCM.NTREPORT ---
Nutrition Therapy Report - History Nutrition Services has been consulted to:: Manage enteral nutrition Current diet / nutrition support order:: clear liquid diet- puree/nectar thick; Pivot 1.5 via NGT at 55mL/hour w/ 150mL H2O flush every 4 hours; 1 packet Mike BID - Anthropometric Measurements Height:: 5 ft 9 in Weight:: 129.7 kg Body Mass Index (BMI):: 42.2 - Relevant Labs Relevant Labs:: WBC 15.1 K/mm3 (4.4-11.0) H 08/20/19 04:00 RBC 2.79 M/mm3 (4.6-6.2) L 08/27/19 04:40 Hgb 8.2 g/dL (13.0-16.5) L 08/27/19 04:40 Hct 26.8 % (40-54) L 08/27/19 04:40 MCV 96.1 fL (80-94) H 08/27/19 04:40 MCHC 30.6 g/dL (32-36) L 08/27/19 04:40 RDW Std Deviation 58.3 fl (35.1-43.9) H 08/27/19 04:40 RDW Coeff of Tio 16.6 % (11.6-14.6) H 08/27/19 04:40 Plt Count 484 K/mm3 (150-450) H 08/18/19 11:45 Immature Gran % (Auto) 1.400 % (0.0-0.9) H 08/27/19 04:40 Neut % (Auto) 71.0 % (47-70) H 08/27/19 04:40 Lymph % (Auto) 18.1 % (19-41) L 08/27/19 04:40 Antelope % (Auto) 10.3 % (0-10) H 08/24/19 07:40 Absolute Neuts (auto) 8.2 X10^3/uL (2.0-7.7) H 08/21/19 03:05 Sodium 146 mmol/L (136-145) H 08/26/19 04:00 Potassium 3.2 mmol/L (3.5-5.1) L 08/27/19 04:40 Chloride 109 mmol/L (98-107) H 08/27/19 04:40 Anion Gap 4 (5-15) L 08/20/19 04:00 BUN 28 mg/dL (7-18) H 08/27/19 04:40 Creatinine 0.68 mg/dL (0.70-1.30) L 08/27/19 04:40 BUN/Creatinine Ratio 41.5 RATIO (10-20) H 08/27/19 04:40 Glucose 145 mg/dL (74-106) H 08/27/19 04:40 Lactic Acid 3.6 mmol/L (0.4-1.9) H* 08/24/19 23:05 Calcium 7.4 mg/dL (8.5-10.1) L 08/27/19 04:40 Total Bilirubin 1.10 mg/dL (0.20-1.00) H 08/24/19 07:40 Direct Bilirubin 0.77 mg/dL (0.00-0.30) H 08/25/19 06:30 AST 190 U/L (15-37) H 08/25/19 06:30 ALT 129 U/L (16-61) H 08/25/19 06:30 Alkaline Phosphatase 297 U/L (45-117) H 08/25/19 06:30 Ammonia 50.0 umol/L (11-32) H 08/24/19 07:40 Albumin 1.5 g/dL (3.2-5.0) L 08/25/19 06:30 Globulin 5.2 g/dL (2.2-4.2) H 08/25/19 06:30 Albumin/Globulin Ratio 0.3 RATIO (0.9-2.4) L 08/24/19 07:40 Prealbumin 5.1 mg/dL (20.0-40.0) L 08/20/19 04:00 Triglycerides 502 mg/dL (-199) H 08/21/19 03:05 - Assessment Food / Nutrition-Related History:: Diet advanced to clear liquids yesterday- tolerating w/ minor abd discomfort. Continues w/ nutrition support provided via NG- currently running at goal rate of 55mL/hour w/ 150mL flush every 4 hours. Tolerating well w/ minimal residuals. Per Dr. Matthew, will advance to full liquid diet today. SAFETY COUNCIL DIRECTOR indicates pt is OK for puree/nectar thick consistencies. Wt increase of 0.9kg since last review. Has bilat ankle 2+ pitting, generalized non-pitting, and bilat pedal 2+ pitting edema per nursing documentation. May see additional wt loss as fluid status improves. - Nutrition Diagnosis Problem / Etiology / Signs & Symptoms (PES):: Increased protein needs r/t stage IV pressure injury as evidenced by delayed wound healing, oral intake <50% of estimated nutritional needs for 3 days prior to enteral nutrition support initiation Evidence of Malnutrition Exists:: No - Nutrition Intervention Nutrition Prescription:: Estimated nutritional needs: [id number], 120-150 g protein - Food / Nutrient Delivery Interventions Summary of nutrition intervention:: Will continue tube feeds via NG until pt is able to tolerate PO diet. Will change tube feeds to nocturnal feeds to promote PO intake while awake. Tube feeds will provide 1425 calories, 90g protein which meets 75% of pt's estimated nutritional needs. As PO intake approaches 50% of nutrient requirements for 2-3 days, will progressively decrease rate of nutrition support. Continue Mike BID via NG. Will provide magic cup w/ dinner for additional calories/protein if consumed. Nutrition support ordered as / adjusted to:: Pivot 1.5 via NGT adjusted to 95mL/hour for 10 hours (from 2000 to 0600) to promote PO intake while awake. Continue 150mL H2O flush every [address] Manzano, advance diet to full liquids today with consistency/textures per SAFETY COUNCIL DIRECTOR. Continue Mike BID via NGT. Will add magic cup w/ dinner for additonal calories/protein if consumed. Nutrition education provided?: No - MNT Monitoring Further MNT monitoring and evaluation required?: Yes MNT Follow-up in:: 1-2 days
--- NOTE | 2019-08-27 12:46 | NURSING ---
kandy Thomas notified transfer to room p[facility] 114 made aware of visiting policy for pcu voiced understanding, transferred per bed with belongings
[2019-08-27] MEDS: Morphine 2 MG/ML Syringe IV (13:15)
--- NOTE | 2019-08-27 15:55 | PN.ID_ITS ---
Patient Problems: Active and Suspected Problems (Last Updated 08/25/19 @ 08:[address] Samina Heredia MD) Cecum perforation (Acute) Severe sepsis (Acute) Sacral wound (Acute) UTI (urinary tract infection) (Acute) Subjective: Feeling ok, no fever - Physical Exam Vitals/I&O's: Vital Signs Temp Pulse Resp BP Pulse Ox 98.1 F 86 19 H 125/73 H 97 08/27/19 15:19 08/27/19 15:19 08/27/19 15:19 08/27/19 15:19 08/27/19 15:19 Oxygen Flow Rate (L/min) 2 Oxygen Delivery Method Room Air Weight: 129.7 kg Body Mass Index (BMI) 42.2 Finger Stick Blood Glucose 191 Intake and Output for Last 24 Hours 08/25/19 08/26/19 08/27/19 23:59 23:59 23:59 Intake Total 5312.5 / 5712.5 5033.25 / 5751.25 3738.5 / 3738.5 Output Total 2225 / 3025 2625 / 3465 1940 / 1940 Balance 3087.5 / 2687.5 2408.25 / 2286.25 1798.5 / 1798.5 General: Alert, Cooperative, No apparent distress Lungs: Clear to auscultation, Normal air movement Cardiovascular: Regular rate, Regular Rhythm Abdomen: Soft, Non Tender, Non-Distended Skin: Ulcer/ Wound Microbiology Past 72 Hours 08/25/19 Unknown Blood Culture (Wb) - Arm Right Blood Culture - Preliminary 08/19/19 16:06 Tissue - Sacral Gram Stain - Final 08/19/19 16:06 Tissue - Sacral Wound Culture - Preliminary Providencia stuartii Acinetobacter baumannii Vancomycin Resist. E. faecium 08/19/19 16:06 Tissue - Sacral Anaerobic Culture - Final Bacteroides fragilis group Anaerobic cocci 08/19/19 16:06 Tissue - Sacral Gram Stain - Final 08/19/19 16:06 Tissue - Sacral Wound Culture - Final Escherichia coli Proteus mirabilis Providencia stuartii Meth. resistant Staph. aureus 08/19/19 16:06 Tissue - Sacral Anaerobic Culture - Final Bacteroides fragilis group Anaerobic cocci 08/19/19 12:50 Blood Culture (Wb) - Pic Blood Culture - Final No growth in 5 days. Laboratory Results 08/26/19 16:17: POC Glucose 148 H 08/26/19 22:57: POC Glucose 115 H 08/27/19 04:40: WBC 9.2, RBC 2.79 L, Hgb 8.2 L, Hct 26.8 L, MCV 96.1 H, MCH 29.4, MCHC 30.6 L, RDW Std Deviation 58.3 H, RDW Coeff of Tio 16.6 H, Plt Count 225, MPV 10.2, Immature Gran % (Auto) 1.400 H, Neut % (Auto) 71.0 H, Lymph % (Auto) 18.1 L, [place] % (Auto) 7.8, Eos % (Auto) 1.5, Baso % (Auto) 0.2, Absolute Neuts (auto) 6.5, Absolute Lymphs (auto) 1.66, Nucleated RBC % 0.3, Differential Comment SCANNED, Atypical Lymphocytes RARE 08/27/19 04:40: Sodium 141, Potassium 3.2 L, Chloride 109 H, Carbon Dioxide 26.0, Anion Gap 6, BUN 28 H, Creatinine 0.68 L, Estim Creat Clear Calc 118.41, Est GFR (MDRD) Af Amer 155, Est GFR (MDRD) Non-Af 128, BUN/Creatinine Ratio 41.5 H, Glucose 145 H, Calcium 7.4 L 08/27/19 04:40: Magnesium 2.1 08/27/19 05:40: POC Glucose 128 H 08/27/19 11:28: POC Glucose 120 H Current Medications Acetaminophen (Tylenol Liquid) 650 mg GT Q6H PRN PRN PRN Reason: Pain Score 1-10/10 Last Admin: 08/26/19 09:28 Dose: 650 mg Documented by: Aspirin (Aspirin, Baby) 81 mg GT DAILY [facility] Last Admin: 08/27/19 09:05 Dose: 81 mg Documented by: Atorvastatin Calcium (Lipitor) 80 mg GT QHS [facility] Last Admin: 08/26/19 21:09 Dose: 80 mg Documented by: Calamine/Phenol (Calmoseptine Ointment) 1 applic TOPICAL TID [facility]; Protocol Last Admin: 08/27/19 15:14 Dose: 1 applicatio Documented by: Dextrose (D50w Syringe) 0 gm IV X1 PRN; Protocol PRN Reason: Hypoglycemia Diazepam (Valium) 5 mg GT Q6H PRN PRN PRN Reason: SPASMS Diltiazem HCl (Cardizem) 60 mg GT Q8 [facility] Last Admin: 08/27/19 05:37 Dose: 60 mg Documented by: Docusate Sodium (Colace Syrup) 100 mg GT BID [facility] Last Admin: 08/27/19 09:03 Dose: 100 mg Documented by: Enoxaparin Sodium (Lovenox) 40 mg SC DAILY [facility] Last Admin: 08/27/19 09:04 Dose: 40 mg Documented by: Famotidine (Pepcid) 20 mg GT DAILY [facility] Last Admin: 08/27/19 09:05 Dose: 20 mg Documented by: Fenofibrate (Tricor) 145 mg GT DAILY [facility] Last Admin: 08/27/19 09:07 Dose: 145 mg Documented by: Folic Acid (Folic Acid) 1 mg GT DAILY [facility] Last Admin: 08/27/19 09:06 Dose: 1 mg Documented by: Glucagon () 1 mg IM .X1 PRN PRN Reason: Hypoglycemia Meropenem 1 gm/ Sodium (Chloride) 120 mls @ 33 mls/hr IV Q8 [facility] Last Admin: 08/27/19 15:13 Dose: 33 mls/hr Documented by: Sodium Chloride () 250 mls @ 15 mls/hr IV .[id number] PRN PRN Reason: Saline Flush Last Infusion: 08/23/19 11:24 Dose: Infused Documented by: Sodium Chloride () 250 mls @ 15 mls/hr IV .[id number] PRN PRN Reason: Additional IVPB Infusion Eravacycline 125 mg/ Sodium (Chloride) 262.5 mls @ 262.5 mls/hr IV Q12 [facility] Last Infusion: 08/27/19 13:10 Dose: Infused Documented by: Valproic Acid 750 mg/ Dextrose 57.5 mls @ 50 mls/hr IV Q8 [facility] Last Infusion: 08/27/19 14:57 Dose: Infused Documented by: Daptomycin 1,000 mg/ Sodium (Chloride) 70 mls @ 140 mls/hr IV Q24 [facility] Last Infusion: 08/27/19 11:45 Dose: Infused Documented by: Dextrose () 1,000 mls @ 75 mls/hr IV .[id number] [facility] Last Admin: 08/27/19 12:05 Dose: 75 mls/hr Documented by: Insulin Human Lispro (Humalog Kwikpen (Bkc)) 0 unit SC Q6H [facility]; Protocol Last Admin: 08/27/19 11:34 Dose: Not Given Documented by: Lactobacillus Acidophilus (Acidophilus) 2 tablet GT DAILY [facility] Last Admin: 08/27/19 09:07 Dose: 2 tablet Documented by: Metoprolol Tartrate (Lopressor (Beta Dana)) 100 mg GT BID [facility] Last Admin: 08/27/19 09:13 Dose: 100 mg Documented by: Morphine Sulfate () 1 mg IV Q3H PRN PRN PRN Reason: Pain Score 6-10/10 Last Admin: 08/26/19 21:28 Dose: 1 mg Documented by: Nutritional Formula (Mike - [place] Flavor) 1 packet GT BID [facility] Last Admin: 08/27/19 09:03 Dose: 1 packet Documented by: Nutritional Formula (Lactose Free) (Ensure Enlive) 120 ml PO 4X/DAY [facility] Nystatin (Mycostatin Powder) 1 applic TOPICAL BID [facility]; Protocol Last Admin: 08/27/19 09:07 Dose: 1 applicatio Documented by: Polyethylene Glycol (Miralax) 17 gm GT DAILY [facility] Last Admin: 08/27/19 09:09 Dose: 17 gm Documented by: Potassium Chloride (Potassium Chl Soln) 20 meq GT BIDCM [facility] Promethazine HCl (Phenergan Tablet) 25 mg GT Q4H PRN PRN PRN Reason: NAUSEA/VOMITING Sodium Chloride () 10 - 40 ml IV UD PRN PRN Reason: SALINE FLUSH Last Admin: 08/26/19 21:29 Dose: 20 ml Documented by: Sodium Hypochlorite (Dakins Solution 0.25% (1/2 Strength)) 1 applic TOPICAL BID [facility]; Protocol Last Admin: 08/27/19 11:03 Dose: 1 applicatio Documented by: Medical Necessity - Tobacco Use Smoking Status: Current every day smoker Route of nutrition/ use of supplements: [] Nutritional Intake: [] IV Site: [] Chakraborty Catheter: [] - Assessment/Plan Antibiotics: [] Assessment/Plan: [] Active and Suspected Problems (Last Updated 12/07/17 @ 08:57 by Shira Conte) Severe sepsis (Acute) Sacral wound (Acute) UTI (urinary tract infection) (Acute) severe sepsis with polymicrobial bacteremia, 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 OR 08/[address] Nguyễn for I&D. OR 08/[address] Crystal for diverting ostomy. On linezolid/gudelia/eravacycline. Wbc much improved. Wound cx with providencia, VRE, XDR Acinetobacter, MRSA, proteus. Bcx with enterobacter x2 and MRSE. Spoke with micro lab and requested additional susc testing for the AcB. VRE was R to linezolid, had fever, so 08/24 changed linezolid to dapto. Now fever and mental status much improved. Given his extremely resistant bacteria, would keep in contact iso. Still low grade fever. Will follow
[2019-08-27 18:16] LABS: Bedside Glucose 144 mg/dL (70-110)
[2019-08-27] MEDS: Metoprolol Tartrate 100 MG Tablet PO (23:10)
[2019-08-27] MEDS: dilTIAZem 30 MG Tablet 60 MG PO (23:10)
[2019-08-27] MEDS: Docusate Sodium 100 MG/10 ML UDC PO (23:10)
[2019-08-27] MEDS: Atorvastatin Calcium 80 MG Tablet PO (23:11)
[2019-08-28] VITALS (13 sets, daily range): BP systolic 106–168; BP diastolic 58–78; PULSE 83–116; RESP 18–19; TEMP 36.7–37.5; O2SAT 95–98; BMI 43.0
[2019-08-28 00:36] LABS: Bedside Glucose 108 mg/dL (70-110)
[2019-08-28 06:43] LABS: Absolute Lymphocyte Count 2.05 X10^3/uL (0.83-4.51); Absolute Neutrophil Count 8.5 X10^3/uL (2.0-7.7); Basophil# 0.03 X10^3/uL; Basophil% 0.2 % (0-1); Eosinophil# 0.09 X10^3/uL; Eosinophils% 0.7 % (0-5); Hematocrit 26.1 % (40-54); Hemoglobin 7.8 g/dL (13.0-16.5); Lymphocyte # 2.05 X10^3/ul (4.0); Mean Corp Hgb Conc 29.9 g/dL (32-36); Mean Corpuscular Hgb 28.9 pg (27.0-32.0); Mean Corpuscular Volume 96.7 fL (80-94); Mean Platelet Vol. 10.3 fl (6.2-12.0); Monocyte# 1.18 X10^3/uL; Monocyte% 9.8 % (0-10); NRBC Flagged by Analyzer 0.3 % (0-5); Neutrophil # 8.47 X10^3/uL (2.7-7.7); Neutrophil % 70.2 % (47-70); Platelet Count 213 K/mm3 (150-450); RBC Distribution Width CV 16.8 % (11.6-14.6); RBC Distribution Width SD 58.7 fl (35.1-43.9); White Blood Count 12.1 K/mm3 (4.4-11.0)
[2019-08-28] MEDS: dilTIAZem 30 MG Tablet 60 MG PO ×3 (06:45→22:27)
[2019-08-28] MEDS: Menthol/Lanolin/Calamine/Znox 113 GM Tube 1 APPLIC TOPICAL ×3 (06:45→22:28)
[2019-08-28 07:00] LABS: Anion Gap 5 (5-15); BUN 28 mg/dL (7-18); BUN/Creat Ratio 46.4 RATIO (10-20); Calcium,Total 7.6 mg/dL (8.5-10.1); Chloride 111 mmol/L (98-107); EST Glomerular Filtration Rate 146 mL/min (>60); Est Glom Filt Rate - Afr Amer 177 mL/min (>60); Glucose 108 mg/dL (74-106); Potassium 3.6 mmol/L (3.5-5.1); Sodium Level 141 mmol/L (136-145)
[2019-08-28 07:01] LABS: Bedside Glucose 112 mg/dL (70-110)
--- NOTE | 2019-08-28 08:20 | PCM.PROGNOTE ---
Patient Problems: Active and Suspected Problems (Last Updated 08/25/19 @ 08:[address] Samina Heredia MD) Cecum perforation (Acute) Severe sepsis (Acute) Sacral wound (Acute) UTI (urinary tract infection) (Acute) Subjective: Chief complaint: Follow-up after admission for severe sepsis secondary to stage IV infected sacral decubitus ulcer/osteomyelitis status post excision with partial ostectomy for osteomyelitis, patient underwent diversion end colostomy that was complicated by perforation of the cecum status post laparoscopic ileocecectomy with primary anastomosis. Patient seen and examined. No acute events overnight. He remained confused and disoriented. Apart from lower abdominal tenderness, he has no complaints. Denied shortness of breath. Denied nausea or vomiting. He has been afebrile overnight, blood pressure and heart rate are stable, pulse ox is 97% on room air. - Physical Exam Vitals/I&O's: Vital Signs Temp Pulse Resp BP Pulse Ox 98.5 F 94 18 106/60 97 08/28/19 04:00 08/28/19 07:00 08/28/19 04:00 08/28/19 04:00 08/28/19 06:53 Oxygen Flow Rate (L/min) 2 Oxygen Delivery Method Room Air Weight: 291 lb 0.163 oz Body Mass Index (BMI) 42.2 Finger Stick Blood Glucose 191 Intake and Output for Last 24 Hours 08/26/19 08/27/19 08/28/19 23:59 23:59 23:59 Intake Total 5033.25 / 5751.25 5541.0 / 5541.0 440.0 / 440.0 Output Total 2625 / 3465 4315 / 4315 1200 / 1200 Balance 2408.25 / 2286.25 1226.0 / 1226.0 -760.0 / -760.0 General: Alert, Cooperative, No apparent distress, Confused, Disoriented HEENT: Atraumatic, PERRLA, EOMI, Normocephalic Oral: Moist Mucosa, No Gingival or Mucosal Lesions/ Ulcerations Neck: Supple, No JVD, Negative Carotid Bruits, Trachea Midline, Thyroid Normal Size and Texture Lungs: Clear to auscultation, No rhonchi, No wheeze, No rales, Diminished Cardiovascular: Regular rate, Regular Rhythm, Normal S1, Normal S2, PMI Normal Abdomen: Bowel Sounds Present, Soft, Non-Distended, No Hepato-splenomegaly, Tender - Midline incision clean and dry, colostomy bag in place. Extremities: No clubbing, No cyanosis, Edema Skin: No rashes, Incision Lymphatic: No Cervical, Supraclavicular, or Inguinal Adenopathy Neurological: Cranial nerves II-XII grossly intact, - - Moving all limbs. Psych/Mental Status: Flat Affect Microbiology Past 72 Hours 08/25/19 Unknown Blood Culture (Wb) - Arm Right Blood Culture - Preliminary 08/19/19 16:06 Tissue - Sacral Gram Stain - Final 08/19/19 16:06 Tissue - Sacral Wound Culture - Preliminary Providencia stuartii Acinetobacter baumannii Vancomycin Resist. E. faecium 08/19/19 16:06 Tissue - Sacral Anaerobic Culture - Final Bacteroides fragilis group Anaerobic cocci 08/19/19 16:06 Tissue - Sacral Gram Stain - Final 08/19/19 16:06 Tissue - Sacral Wound Culture - Final Escherichia coli Proteus mirabilis Providencia stuartii Meth. resistant Staph. aureus 08/19/19 16:06 Tissue - Sacral Anaerobic Culture - Final Bacteroides fragilis group Anaerobic cocci Laboratory Results 08/27/19 04:40: Magnesium 2.1 08/27/19 11:28: POC Glucose 120 H 08/27/19 17:51: POC Glucose 144 H 08/28/19 00:28: POC Glucose 108 08/28/19 06:14: WBC 12.1 H, RBC 2.70 L, Hgb 7.8 L, Hct 26.1 L, MCV 96.7 H, MCH 28.9, MCHC 29.9 L, RDW Std Deviation 58.7 H, RDW Coeff of Tio 16.8 H, Plt Count 213, MPV 10.3, Immature Gran % (Auto) 2.100 H, Neut % (Auto) 70.2 H, Lymph % (Auto) 17.0 L, [place] % (Auto) 9.8, Eos % (Auto) 0.7, Baso % (Auto) 0.2, Absolute Neuts (auto) 8.5 H, Absolute Lymphs (auto) 2.05, Nucleated RBC % 0.3 08/28/19 06:14: Sodium 141, Potassium 3.6, Chloride 111 H, Carbon Dioxide 25.0, Anion Gap 5, BUN 28 H, Creatinine 0.60 L, Estim Creat Clear Calc 134.20, Est GFR (MDRD) Af Amer 177, Est GFR (MDRD) Non-Af 146, BUN/Creatinine Ratio 46.4 H, Glucose 108 H, Calcium 7.6 L 08/28/19 06:43: POC Glucose 112 H Current Medications Acetaminophen (Tylenol Liquid) 650 mg PO Q6H PRN PRN PRN Reason: Pain Score 1-10/10 [facility] Atorvastatin Calcium (Lipitor) 80 mg PO QHS [facility] Last Admin: 08/27/19 23:11 Dose: 80 mg Documented by: Calamine/Phenol (Calmoseptine Ointment) 1 applic TOPICAL TID [facility]; Protocol Last Admin: 08/28/19 06:45 Dose: 1 applicatio Documented by: Dextrose (D50w Syringe) 0 gm IV X1 PRN; Protocol PRN Reason: Hypoglycemia Diazepam (Valium) 5 mg PO Q6H PRN PRN PRN Reason: SPASMS Diltiazem HCl (Cardizem) 60 mg PO Q8 [facility] Last Admin: 08/28/19 06:45 Dose: 60 mg Documented by: Docusate Sodium (Colace Syrup) 100 mg PO BID [facility] Last Admin: 08/27/19 23:10 Dose: 100 mg Documented by: Enoxaparin Sodium (Lovenox) 40 mg SC DAILY [facility] Last Admin: 08/27/19 09:04 Dose: 40 mg Documented by: Famotidine (Pepcid) 20 mg PO DAILY [facility] Fenofibrate (Tricor) 145 mg PO DAILY [facility] Folic Acid (Folic Acid) [facility] Glucagon () 1 mg IM .X1 PRN PRN Reason: Hypoglycemia Meropenem 1 gm/ Sodium (Chloride) 120 mls @ 33 mls/hr IV Q8 [facility] Last Admin: 08/28/19 06:45 Dose: 33 mls/hr Documented by: Sodium Chloride () 250 mls @ 15 mls/hr IV .[id number] PRN PRN Reason: Saline Flush Last Infusion: 08/23/19 11:24 Dose: Infused Documented by: Sodium Chloride () 250 mls @ 15 mls/hr IV .[id number] PRN PRN Reason: Additional IVPB Infusion Eravacycline 125 mg/ Sodium (Chloride) 262.5 mls @ 262.5 mls/hr IV Q12 [facility] Last Infusion: 08/28/19 00:35 Dose: Infused Documented by: Valproic Acid 750 mg/ Dextrose 57.5 mls @ 50 mls/hr IV Q8 [facility] Last Infusion: 08/28/19 06:21 Dose: Infused Documented by: Daptomycin 1,000 mg/ Sodium (Chloride) 70 mls @ 140 mls/hr IV Q24 [facility] Last Infusion: 08/27/19 11:45 Dose: Infused Documented by: Dextrose () 1,000 mls @ 75 mls/hr IV .[id number] [facility] Last Admin: 08/27/19 22:17 Dose: 75 mls/hr Documented by: Insulin Human Lispro (Humalog Kwikpen (Bkc)) 0 unit SC Q6H [facility]; Protocol Last Admin: 08/28/19 07:46 Dose: Not Given Documented by: Lactobacillus Acidophilus (Acidophilus) 2 tablet PO DAILY [facility] Metoprolol Tartrate (Lopressor (Beta Dana)) 100 mg PO BID [facility] Last Admin: 08/27/19 23:10 Dose: 100 mg Documented by: Morphine Sulfate () 1 mg IV Q3H PRN PRN PRN Reason: Pain Score 6-10/10 Last Admin: 08/26/19 21:28 Dose: 1 mg Documented by: Nutritional Formula (Mike - [place] Flavor) 1 packet PO BID [facility] Last Admin: 08/27/19 23:11 Dose: 1 packet Documented by: Nutritional Formula (Lactose Free) (Ensure Enlive) 120 ml PO 4X/DAY [facility] Last Admin: 08/27/19 23:10 Dose: 120 ml Documented by: Nystatin (Mycostatin Powder) 1 applic TOPICAL BID [facility]; Protocol Last Admin: 08/28/19 01:19 Dose: Not Given Documented by: Polyethylene Glycol (Miralax) 17 gm PO DAILY [facility] Potassium Chloride (Potassium Chl Soln) [facility] Last Admin: 08/27/19 17:52 Dose: 20 meq Documented by: Promethazine HCl (Phenergan Tablet) 25 mg PO Q4H PRN PRN PRN Reason: NAUSEA/VOMITING Sodium Chloride () 10 - 40 ml IV UD PRN PRN Reason: SALINE FLUSH Last Admin: 08/26/19 21:29 Dose: 20 ml Documented by: Sodium Hypochlorite (Dakins Solution 0.25% (1/2 Strength)) 1 applic TOPICAL BID [facility]; Protocol Last Admin: 08/27/19 23:11 Dose: 1 applicatio Documented by: Medical Necessity - Tobacco Use Smoking Status: Current every day smoker Assessment/Plan All Active Problems (Last Updated 08/25/19 @ 08:[address] Samina Heredia MD) Cecum perforation (Acute) Multiple drug resistant Acinetobacter infection (Acute) Methicillin resistant Staphylococcus aureus infection (Acute) Severe sepsis (Acute) Sacral wound (Acute) UTI (urinary tract infection) (Acute) This is a 59 years old male patient presented to the emergency room from the snf because of change in mental status, found to have severe sepsis secondary to stage IV infected sacral decubitus ulcer, underwent excision with partial ostectomy for osteomyelitis, underwent diverting colostomy which was complicated by perforation of the cecum status post laparoscopic ileocecectomy with primary anastomosis. #1 severe sepsis: Secondary to infected sacral stage IV decubitus ulcer/osteomyelitis as well as acute complicated cystitis. Remained on IV daptomycin, Eravacycline and meropenem. Overnight, he has no more spikes of fever, WBC is trending up. Blood, wound and urine culture reviewed as below. Heart rate stabilized, blood pressure stable. Infectious disease on the case. Plan: Continue same treatment, repeat CBC tomorrow morning. #2 acute respiratory failure: Status post extubation. Currently, he is on room air and pulse ox is 97 %. #3 polymicrobial infected stage IV sacral decubitus ulcer/osteomyelitis: Status post excision and partial ostectomy for osteomyelitis, postoperative day 9. Patient remains on IV antibiotics as mentioned above. Wound culture revealed E. coli, Proteus mirabilis, Providencia stuartii and MRSA as well as vancomycin resistant Enterococcus faecium. Infectious disease on the case. He has no more fever, WBC is trending up, plan as above. #4 Enterobacter cloacae/staph epidermidis bacteremia: He is on IV daptomycin, meropenem and ERAVACYCLINE. Repeat blood culture also positive for gram-positive cocci. Infectious disease on the case, plan as above. #5 acute complicated cystitis: In the setting of chronic indwelling Chakraborty catheter. Patient was on IV antibiotics. Culture revealed presumptive [place] albicans. #6 acute metabolic encephalopathy: Attributed to severe sepsis. Patient has been becoming more interactive, more alert, remains confused and disoriented. #7 status post diversion colostomy: That was complicated by perforation of the cecum, status post laparoscopic ileocecectomy and primary stenosis. Yesterday, patient pulled out his NG tube. He has been on diet, tolerated. General surgery on the case. #8 elevated LFT: Likely due to severe sepsis. No right upper quadrant tenderness. Plan to monitor. #9 hypernatremia/hypokalemia: Both serum sodium and potassium normalized. #10 type 2 diabetes mellitus: Blood sugar has been stable. He is on sliding scale only. Metformin held. #11 seizure disorder: Stable, will change valproic acid to p.o. #12 hypertension: Blood pressure is maintained at this time, continue metoprolol. #13 CAD status post CABG: Stable, no acute issues. Continue aspirin, statins, beta-blockers. #14 paroxysmal atrial fibrillation: Heart rate has been in 90s, improved. ontinue Cardizem and metoprolol for rate control. He is not on anticoagulation. #15 DVT prophylaxis: Subcu Lovenox. This note was generated with [employer] dictation software. It may contain incorrect words, spelling, and punctuation that were not noted in checking the note before signing. Inpatient E&M: 24400 Subs Hosp L2
--- NOTE | 2019-08-28 08:48 | PN_ITS ---
Subjective: Patient transferred out of the intensive care unit yesterday. Patient did well overall. Patient is tolerating room air. Patient is reporting pain, but is unable to localize for me. Patient essentially had a positive review of systems, but appeared very comfortable when I was in the room. General: Alert, Cooperative, Confused, Disoriented, - - Morbidly obese. Speaking in full sentences. HEENT: Atraumatic, PERRLA, EOMI, Normocephalic, - - No scleral icterus or injection noted Oral: Moist Mucosa, No Gingival or Mucosal Lesions/ Ulcerations, - - Crowded posterior pharynx Neck: Supple, No JVD, No Nodes, Trachea Midline Lungs: No rhonchi, No wheeze, No rales, Diminished, - - Symmetric expansion. No dullness to percussion. Cardiovascular: Regular rate, Regular Rhythm, Normal S1, Normal S2, No rub noted, No Gallop Abdomen: Bowel Sounds Present, Soft, Distended - Slightly, Obese, Tender - No rebound or guarding noted, - - Stool noted in ostomy bag Extremities: No clubbing, No cyanosis, Edema - Significant bilateral lower extremities Skin: Incision - Clean, dry and intact Musculoskeletal: No Tenderness to Palpation of Joints or Extremities Lymphatic: No Cervical, Supraclavicular, or Inguinal Adenopathy Neurological: Cranial nerves II-XII grossly intact, Neuro grossly intact, Motor Exam 5/5 strength throughout Psych/Mental Status: Flat Affect Vital Signs Temp Pulse Resp BP Pulse Ox 36.9 C 94 18 106/60 97 08/28/19 04:00 08/28/19 07:00 08/28/19 04:00 08/28/19 04:00 08/28/19 06:53 Oxygen Flow Rate (L/min) 2 Oxygen Delivery Method Room Air Weight: 132 kg Body Mass Index (BMI) 42.2 Finger Stick Blood Glucose 191 Intake and Output for Last 24 Hours 08/26/19 08/27/19 08/28/19 23:59 23:59 23:59 Intake Total 5033.25 / 5751.25 5541.0 / 5541.0 440.0 / 440.0 Output Total 2625 / 3465 4315 / 4315 1200 / 1200 Balance 2408.25 / 2286.25 1226.0 / 1226.0 -760.0 / -760.0 Labs (Last 48 Hours) 07/21/20 07/21/20 07/21/20 11:16 16:17 22:57 WBC RBC Hgb Hct MCV MCH MCHC RDW Std Deviation RDW Coeff of Tio Plt Count MPV Immature Gran % (Auto) Neut % (Auto) Lymph % (Auto) Alfalfa % (Auto) Eos % (Auto) Baso % (Auto) Absolute Neuts (auto) Absolute Lymphs (auto) Nucleated RBC % Differential Comment Atypical Lymphocytes Sodium Potassium Chloride Carbon Dioxide Anion Gap BUN Creatinine Estim Creat Clear Calc Est GFR (MDRD) Af Amer Est GFR (MDRD) Non-Af BUN/Creatinine Ratio Glucose Calcium Magnesium POC Glucose 130 H 148 H 115 H 08/27/19 08/27/19 08/27/19 04:40 04:40 04:40 WBC 9.2 RBC 2.79 L Hgb 8.2 L Hct 26.8 L MCV 96.1 H MCH 29.4 MCHC 30.6 L RDW Std Deviation 58.3 H RDW Coeff of Tio 16.6 H Plt Count 225 MPV 10.2 Immature Gran % (Auto) 1.400 H Neut % (Auto) 71.0 H Lymph % (Auto) 18.1 L Alfalfa % (Auto) 7.8 Eos % (Auto) 1.5 Baso % (Auto) 0.2 Absolute Neuts (auto) 6.5 Absolute Lymphs (auto) 1.66 Nucleated RBC % 0.3 Differential Comment SCANNED Atypical Lymphocytes RARE Sodium 141 Potassium 3.2 L Chloride 109 H Carbon Dioxide 26.0 Anion Gap 6 BUN 28 H Creatinine 0.68 L Estim Creat Clear Calc 118.41 Est GFR (MDRD) Af Amer 155 Est GFR (MDRD) Non-Af 128 BUN/Creatinine Ratio 41.5 H Glucose 145 H Calcium 7.4 L Magnesium 2.1 POC Glucose 08/27/19 08/27/19 08/27/19 05:40 11:28 17:51 WBC RBC Hgb Hct MCV MCH MCHC RDW Std Deviation RDW Coeff of Tio Plt Count MPV Immature Gran % (Auto) Neut % (Auto) Lymph % (Auto) [place]falfa % (Auto) Eos % (Auto) Baso % (Auto) Absolute Neuts (auto) Absolute Lymphs (auto) Nucleated RBC % Differential Comment Atypical Lymphocytes Sodium Potassium Chloride Carbon Dioxide Anion Gap BUN Creatinine Estim Creat Clear Calc Est GFR (MDRD) Af Amer Est GFR (MDRD) Non-Af BUN/Creatinine Ratio Glucose Calcium Magnesium POC Glucose 128 H 120 H 144 H 08/28/19 08/28/19 08/28/19 00:28 06:14 06:14 WBC 12.1 H RBC 2.70 L Hgb 7.8 L Hct 26.1 L MCV 96.7 H MCH 28.9 MCHC 29.9 L RDW Std Deviation 58.7 H RDW Coeff of Tio 16.8 H Plt Count 213 MPV 10.3 Immature Gran % (Auto) 2.100 H Neut % (Auto) 70.2 H Lymph % (Auto) 17.0 L Alfalfa % (Auto) 9.8 Eos % (Auto) 0.7 Baso % (Auto) 0.2 Absolute Neuts (auto) 8.5 H Absolute Lymphs (auto) 2.05 Nucleated RBC % 0.3 Differential Comment Atypical Lymphocytes Sodium 141 Potassium 3.6 Chloride 111 H Carbon Dioxide 25.0 Anion Gap 5 BUN 28 H Creatinine 0.60 L Estim Creat Clear Calc 134.20 Est GFR (MDRD) Af Amer 177 Est GFR (MDRD) Non-Af 146 BUN/Creatinine Ratio 46.4 H Glucose 108 H Calcium 7.6 L Magnesium POC Glucose 108 08/28/19 06:43 WBC RBC Hgb Hct MCV MCH MCHC RDW Std Deviation RDW Coeff of Tio Plt Count MPV Immature Gran % (Auto) Neut % (Auto) Lymph % (Auto) [place]alf[place] % (Auto) Eos % (Auto) Baso % (Auto) Absolute Neuts (auto) Absolute Lymphs (auto) Nucleated RBC % Differential Comment Atypical Lymphocytes Sodium Potassium Chloride Carbon Dioxide Anion Gap BUN Creatinine Estim Creat Clear Calc Est GFR (MDRD) Af Amer Est GFR (MDRD) Non-Af BUN/Creatinine Ratio Glucose Calcium Magnesium POC Glucose 112 H Microbiology 08/25/19 Unknown Blood Culture (Wb) - Arm Right Blood Culture - Preliminary 08/19/19 16:06 Tissue - Sacral Gram Stain - Final 08/19/19 16:06 Tissue - Sacral Wound Culture - Preliminary Providencia stuartii Acinetobacter baumannii Vancomycin Resist. E. faecium 08/19/19 16:06 Tissue - Sacral Anaerobic Culture - Final Bacteroides fragilis group Anaerobic cocci 08/19/19 16:06 Tissue - Sacral Gram Stain - Final 08/19/19 16:06 Tissue - Sacral Wound Culture - Final Escherichia coli Proteus mirabilis Providencia stuartii Meth. resistant Staph. aureus 08/19/19 16:06 Tissue - Sacral Anaerobic Culture - Final Bacteroides fragilis group Anaerobic cocci Medical Necessity - Tobacco Use Smoking Status: Current every day smoker Assessment/Plan All Active Problems (Last Updated 08/25/19 @ 08:[address] Samina Heredia MD) Cecum perforation (Acute) Multiple drug resistant Acinetobacter infection (Acute) Methicillin resistant Staphylococcus aureus infection (Acute) Severe sepsis (Acute) Sacral wound (Acute) UTI (urinary tract infection) (Acute) RECOMMENDATIONS: 1. Continue aggressive recruitment measures with incentive spirometer. 2. Tube feeds per surgery 3. Continue antimicrobials per infectious diseases recommendations. 4. Avoid oversedation with opiate pain medications. 5. Continue Depakote and seizure precautions. 6. Continue wound care 7. Start gentle diuresis 8. Hemodynamically stable on room air. Will sign off from a critical care perspective IMPRESSIONS: 1. Severe sepsis The patient has evidence of gram-negative bacteremia, most likely secondary to hematogenous spread from his sacral wound. The patient will be continued on broad-spectrum antimicrobials per ID recommendations. He is currently hemodynamically stable with improving fever curve. Patient's NG was in the midesophagus, but appears to be well below larynx with no obvious aspiration pattern on chest x-ray on initial transfer to the intensive care unit. Patient currently on room air, but does have significant lower extremity edema. Patient will be given Lasix therapy. Patient did receive significant D5W secondary to hypernatremia. 2. Metabolic encephalopathy Continue current supportive measures as noted above. The patient has not demonstrated any active seizure activity. Patient has responded well to minimization of medications. 3. Coronary artery disease status post CABG/atrial fibrillation/unspecified seizure disorder/diabetes mellitus/GERD Complicates care, management, recovery and prognosis. Continue home medications as indicated. Physical therapy to work with the patient. 4. Hypernatremia/hyperchloremia Likely secondary to resuscitation efforts with normal saline. Attempt to keep off of IV fluids if possible. Dietitian is following. Renal function remains acceptable. Slight elevation in liver enzymes noted. Patient is reportedly +11 L during hospitalization, but weight is relatively stable. Will give gentle diuresis on a as needed basis Inpatient E&M: 15858 Subs Hosp L2
--- NOTE | 2019-08-28 10:07 | CASEMGMT ---
Infectious Disease Physician wrote prescriptions for patient's 3 IV antibiotics he will be on at discharge. LUNA faxed these prescriptions to [facility] and also called Kirstin. LUNA let her know scripts were faxed and patient may be discharged tomorrow or Sunday. She thanked LUNA for the update. Amna ZARATE MSW
[2019-08-28] MEDS: Polyethylene Glycol 3350 17 GM PACKET PO (10:18)
[2019-08-28] MEDS: Docusate Sodium 100 MG/10 ML UDC PO (10:18)
[2019-08-28] MEDS: Fenofibrate 145 MG Tablet PO (10:19)
[2019-08-28] MEDS: Folic Acid 1 MG Tablet PO (10:19)
[2019-08-28] MEDS: Furosemide 40 MG Tablet PO (10:19)
[2019-08-28] MEDS: Metoprolol Tartrate 100 MG Tablet PO ×2 (10:19→22:27)
[2019-08-28] MEDS: Enoxaparin 40 MG/0.4 ML Syringe SC (10:19)
[2019-08-28] MEDS: Famotidine 20 MG Tablet PO (10:19)
[2019-08-28] MEDS: DAKIN'S SOL HALF STRENGTH (=0.25%) 1 APPLIC TOPICAL ×2 (10:20→22:29)
[2019-08-28] MEDS: Aspirin 81 MG TAB.CHEW PO (10:20)
[2019-08-28] MEDS: Nystatin Powder 15gm Bottle 1 APPLIC TOPICAL ×2 (10:31→22:29)
--- NOTE | 2019-08-28 10:32 | PN.ID_ITS ---
Patient Problems: Active and Suspected Problems (Last Updated 08/25/19 @ 08:[address] Samina Heredia MD) Cecum perforation (Acute) Severe sepsis (Acute) Sacral wound (Acute) UTI (urinary tract infection) (Acute) Subjective: Feeling better, no fever - Physical Exam Vitals/I&O's: Vital Signs Temp Pulse Resp BP Pulse Ox 98.4 F 97 18 125/75 H 97 08/28/19 10:00 08/28/19 10:19 08/28/19 10:00 08/28/19 10:00 08/28/19 10:00 Oxygen Flow Rate (L/min) 2 Oxygen Delivery Method Room Air Weight: 132 kg Body Mass Index (BMI) 42.2 Finger Stick Blood Glucose 191 Intake and Output for Last 24 Hours 08/26/19 08/27/19 08/28/19 23:59 23:59 23:59 Intake Total 5033.25 / 5751.25 5541.0 / 5541.0 560.0 / 560.0 Output Total 2625 / 3465 4315 / 4315 1200 / 1200 Balance 2408.25 / 2286.25 1226.0 / 1226.0 -640.0 / -640.0 General: Alert, Cooperative, No apparent distress Lungs: Clear to auscultation, Normal air movement Cardiovascular: Regular rate, Regular Rhythm Abdomen: Soft, Non Tender, Non-Distended Skin: Ulcer/ Wound Microbiology Past 72 Hours 08/25/19 Unknown Blood Culture (Wb) - Arm Right Blood Culture - Preliminary 08/19/19 16:06 Tissue - Sacral Gram Stain - Final 08/19/19 16:06 Tissue - Sacral Wound Culture - Preliminary Providencia stuartii Acinetobacter baumannii Vancomycin Resist. E. faecium 08/19/19 16:06 Tissue - Sacral Anaerobic Culture - Final Bacteroides fragilis group Anaerobic cocci 08/19/19 16:06 Tissue - Sacral Gram Stain - Final 08/19/19 16:06 Tissue - Sacral Wound Culture - Final Escherichia coli Proteus mirabilis Providencia stuartii Meth. resistant Staph. aureus 08/19/19 16:06 Tissue - Sacral Anaerobic Culture - Final Bacteroides fragilis group Anaerobic cocci Laboratory Results 08/27/19 11:28: POC Glucose 120 H 08/27/19 17:51: POC Glucose 144 H 08/28/19 00:28: POC Glucose 108 08/28/19 06:14: WBC 12.1 H, RBC 2.70 L, Hgb 7.8 L, Hct 26.1 L, MCV 96.7 H, MCH 28.9, MCHC 29.9 L, RDW Std Deviation 58.7 H, RDW Coeff of Tio 16.8 H, Plt Count 213, MPV 10.3, Immature Gran % (Auto) 2.100 H, Neut % (Auto) 70.2 H, Lymph % (Auto) 17.0 L, [place] % (Auto) 9.8, Eos % (Auto) 0.7, Baso % (Auto) 0.2, Absolute Neuts (auto) 8.5 H, Absolute Lymphs (auto) 2.05, Nucleated RBC % 0.3 08/28/19 06:14: Sodium 141, Potassium 3.6, Chloride 111 H, Carbon Dioxide 25.0, Anion Gap 5, BUN 28 H, Creatinine 0.60 L, Estim Creat Clear Calc 134.20, Est GFR (MDRD) Af Amer 177, Est GFR (MDRD) Non-Af 146, BUN/Creatinine Ratio 46.4 H, Glucose 108 H, Calcium 7.6 L 08/28/19 06:43: POC Glucose 112 H Current Medications Acetaminophen (Tylenol Liquid) 650 mg PO Q6H PRN PRN PRN Reason: Pain Score 1-10/10 Aspirin (Aspirin, Baby) 81 mg PO DAILYCM [facility] Last Admin: 08/28/19 10:20 Dose: 81 mg Documented by: Atorvastatin Calcium (Lipitor) 80 mg PO QHS [facility] Last Admin: 08/27/19 23:11 Dose: 80 mg Documented by: Calamine/Phenol (Calmoseptine Ointment) 1 applic TOPICAL TID [facility]; Protocol Last Admin: 08/28/19 06:45 Dose: 1 applicatio Documented by: Dextrose (D50w Syringe) 0 gm IV X1 PRN; Protocol PRN Reason: Hypoglycemia Diazepam (Valium) 5 mg PO Q6H PRN PRN PRN Reason: SPASMS Diltiazem HCl (Cardizem) 60 mg PO Q8 [facility] Last Admin: 08/28/19 06:45 Dose: 60 mg Documented by: Docusate Sodium (Colace Syrup) 100 mg PO BID [facility] Last Admin: 08/28/19 10:18 Dose: 100 mg Documented by: Enoxaparin Sodium (Lovenox) 40 mg SC DAILY [facility] Last Admin: 08/28/19 10:19 Dose: 40 mg Documented by: Famotidine (Pepcid) 20 mg PO DAILY [facility] Last Admin: 08/28/19 10:19 Dose: 20 mg Documented by: Fenofibrate (Tricor) 145 mg PO DAILY [facility] Last Admin: 08/28/19 10:19 Dose: 145 mg Documented by: Folic Acid (Folic Acid) 1 mg PO DAILYCM [facility] Last Admin: 08/28/19 10:19 Dose: 1 mg Documented by: Glucagon () 1 mg IM .X1 PRN PRN Reason: Hypoglycemia Meropenem 1 gm/ Sodium (Chloride) 120 mls @ 33 mls/hr IV Q8 [facility] Last Infusion: 08/28/19 10:30 Dose: Infused Documented by: Sodium Chloride () 250 mls @ 15 mls/hr IV .[id number] PRN PRN Reason: Saline Flush Last Infusion: 08/23/19 11:24 Dose: Infused Documented by: Sodium Chloride () 250 mls @ 15 mls/hr IV .[id number] PRN PRN Reason: Additional IVPB Infusion Eravacycline 125 mg/ Sodium (Chloride) 262.5 mls @ 262.5 mls/hr IV Q12 [facility] Last Infusion: 08/28/19 00:35 Dose: Infused Documented by: Daptomycin 1,000 mg/ Sodium (Chloride) 70 mls @ 140 mls/hr IV Q24 [facility] Last Infusion: 08/27/19 11:45 Dose: Infused Documented by: Dextrose () 1,000 mls @ 75 mls/hr IV .[id number] [facility] Last Admin: 08/27/19 22:17 Dose: 75 mls/hr Documented by: Insulin Human Lispro (Humalog Kwikpen (Bkc)) 0 unit SC Q6H [facility]; Protocol Last Admin: 08/28/19 07:46 Dose: Not Given Documented by: Lactobacillus Acidophilus (Acidophilus) 2 tablet PO DAILY [facility] Last Admin: 08/28/19 10:20 Dose: 2 tablet Documented by: Metoprolol Tartrate (Lopressor (Beta Dana)) 100 mg PO BID [facility] Last Admin: 08/28/19 10:19 Dose: 100 mg Documented by: Morphine Sulfate () 1 mg IV Q3H PRN PRN PRN Reason: Pain Score 6-10/10 Last Admin: 08/26/19 21:28 Dose: 1 mg Documented by: Nutritional Formula (Mike - [place] Flavor) 1 packet PO BID [facility] Last Admin: 08/28/19 10:18 Dose: 1 packet Documented by: Nutritional Formula (Lactose Free) (Ensure Enlive) 120 ml PO 4X/DAY [facility] Last Admin: 08/28/19 10:17 Dose: 120 ml Documented by: Nystatin (Mycostatin Powder) 1 applic TOPICAL BID [facility]; Protocol Last Admin: 08/28/19 10:31 Dose: 1 applicatio Documented by: Polyethylene Glycol (Miralax) 17 gm PO DAILY [facility] Last Admin: 08/28/19 10:18 Dose: 17 gm Documented by: Potassium Chloride (Potassium Chl Soln) 20 meq PO BIDCM [facility] Last Admin: 08/28/19 10:17 Dose: 20 meq Documented by: Promethazine HCl (Phenergan Tablet) 25 mg PO Q4H PRN PRN PRN Reason: NAUSEA/VOMITING Sodium Chloride () 10 - 40 ml IV UD PRN PRN Reason: SALINE FLUSH Last Admin: 08/26/19 21:29 Dose: 20 ml Documented by: Sodium Hypochlorite (Dakins Solution 0.25% (1/2 Strength)) 1 applic TOPICAL BID [facility]; Protocol Last Admin: 08/28/19 10:20 Dose: 1 applicatio Documented by: Valproic Acid (Depakene) 750 mg PO TID [facility] Medical Necessity - Tobacco Use Smoking Status: Current every day smoker Route of nutrition/ use of supplements: [] Nutritional Intake: [] IV Site: [] Chakraborty Catheter: [] - Assessment/Plan Antibiotics: [] Assessment/Plan: [] Active and Suspected Problems (Last Updated 12/07/17 @ 08:57 by Shira Conte) Severe sepsis (Acute) Sacral wound (Acute) UTI (urinary tract infection) (Acute) severe sepsis with polymicrobial bacteremia, 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 OR 08/[address] Nguyễn for I&D. OR 08/[address] Crystal for diverting ostomy. On linezolid/gudelia/eravacycline. Wbc much improved. Wound cx with providencia, VRE, XDR Acinetobacter, MRSA, proteus. Bcx with enterobacter x2 and MRSE. Spoke with micro lab and requested additional susc testing for the AcB. VRE was R to linezolid, had fever, so 08/24 changed linezolid to dapto. Now fever and mental status much improved. Given his extremely resistant bacteria, would keep in contact iso. Fever resolved, will check repeat bcx. Plan is for 6 weeks iv dapto/gudelia/eravacycline with weekly bmp, cbc, LFT, CK, and esr. ID followup in 2 weeks. Wrote rx. Will follow
--- NOTE | 2019-08-28 11:16 | PN.SURG_ITS ---
Patient Problems: Active and Suspected Problems (Last Updated 08/25/19 @ 08:[address] Samina Heredia MD) Cecum perforation (Acute) Severe sepsis (Acute) Sacral wound (Acute) UTI (urinary tract infection) (Acute) Subjective: Patient still alert, and did drink his Ensure, did pull out his NG last night was not replaced as likely patient would pull out again. We will see how he does nutritionally p.o. - Physical Exam Vitals/I&O's: Vital Signs Temp Pulse Resp BP Pulse Ox 98.4 F 97 18 125/75 H 97 08/28/19 10:00 08/28/19 10:19 08/28/19 10:00 08/28/19 10:00 08/28/19 10:00 Oxygen Flow Rate (L/min) 2 Oxygen Delivery Method Room Air Weight: 291 lb 0.163 oz Body Mass Index (BMI) 42.2 Finger Stick Blood Glucose 191 Intake and Output for Last 24 Hours 08/26/19 08/27/19 08/28/19 23:59 23:59 23:59 Intake Total 5033.25 / 5751.25 5541.0 / 5541.0 560.0 / 560.0 Output Total 2625 / 3465 4315 / 4315 1200 / 1200 Balance 2408.25 / 2286.25 1226.0 / 1226.0 -640.0 / -640.0 General: Alert, Cooperative, No apparent distress Cardiovascular: Regular rate Abdomen: Soft, Distended - Mild, Tender - Near incisions clean dry and intact with dee, colostomy beefy red no signs of any retraction, liquid stool in bag, right lower quadrant incision site open and draining serous fluid no signs of any infection.No peritoneal signs Microbiology Past 72 Hours 08/25/19 Unknown Blood Culture (Wb) - Arm Right Blood Culture - Preliminary 08/19/19 16:06 Tissue - Sacral Gram Stain - Final 08/19/19 16:06 Tissue - Sacral Wound Culture - Preliminary Providencia stuartii Acinetobacter baumannii Vancomycin Resist. E. faecium 08/19/19 16:06 Tissue - Sacral Anaerobic Culture - Final Bacteroides fragilis group Anaerobic cocci 08/19/19 16:06 Tissue - Sacral Gram Stain - Final 08/19/19 16:06 Tissue - Sacral Wound Culture - Final Escherichia coli Proteus mirabilis Providencia stuartii Meth. resistant Staph. aureus 08/19/19 16:06 Tissue - Sacral Anaerobic Culture - Final Bacteroides fragilis group Anaerobic cocci Laboratory Results 08/27/19 11:28: POC Glucose 120 H 08/27/19 17:51: POC Glucose 144 H 08/28/19 00:28: POC Glucose 108 08/28/19 06:14: WBC 12.1 H, RBC 2.70 L, Hgb 7.8 L, Hct 26.1 L, MCV 96.7 H, MCH 28.9, MCHC 29.9 L, RDW Std Deviation 58.7 H, RDW Coeff of Tio 16.8 H, Plt Count 213, MPV 10.3, Immature Gran % (Auto) 2.100 H, Neut % (Auto) 70.2 H, Lymph % (Auto) 17.0 L, [place] % (Auto) 9.8, Eos % (Auto) 0.7, Baso % (Auto) 0.2, Absolute Neuts (auto) 8.5 H, Absolute Lymphs (auto) 2.05, Nucleated RBC % 0.3 08/28/19 06:14: Sodium 141, Potassium 3.6, Chloride 111 H, Carbon Dioxide 25.0, Anion Gap 5, BUN 28 H, Creatinine 0.60 L, Estim Creat Clear Calc 134.20, Est GFR (MDRD) Af Amer 177, Est GFR (MDRD) Non-Af 146, BUN/Creatinine Ratio 46.4 H, Glucose 108 H, Calcium 7.6 L 08/28/19 06:43: POC Glucose 112 H 08/28/19 10:55: Blood Type Pending, Antibody Screen Pending, Crossmatch See Detail Current Medications Acetaminophen (Tylenol Liquid) 650 mg PO Q6H PRN PRN PRN Reason: Pain Score 1-10/10 Aspirin (Aspirin, Baby) 81 mg PO DAILYCM [facility] Last Admin: 08/28/19 10:20 Dose: 81 mg Documented by: Atorvastatin Calcium (Lipitor) 80 mg PO QHS [facility] Last Admin: 08/27/19 23:11 Dose: 80 mg Documented by: Calamine/Phenol (Calmoseptine Ointment) 1 applic TOPICAL TID [facility]; Protocol Last Admin: 08/28/19 06:45 Dose: 1 applicatio Documented by: Dextrose (D50w Syringe) 0 gm IV X1 PRN; Protocol PRN Reason: Hypoglycemia Diazepam (Valium) 5 mg PO Q6H PRN PRN PRN Reason: SPASMS Diltiazem HCl (Cardizem) 60 mg PO Q8 [facility] Last Admin: 08/28/19 06:45 Dose: 60 mg Documented by: Docusate Sodium (Colace Syrup) 100 mg PO BID [facility] Last Admin: 08/28/19 10:18 Dose: 100 mg Documented by: Enoxaparin Sodium (Lovenox) 40 mg SC DAILY [facility] Last Admin: 08/28/19 10:19 Dose: 40 mg Documented by: Famotidine (Pepcid) 20 mg PO DAILY [facility] Last Admin: 08/28/19 10:19 Dose: 20 mg Documented by: Fenofibrate (Tricor) 145 mg PO DAILY [facility] Last Admin: 08/28/19 10:19 Dose: 145 mg Documented by: Folic Acid (Folic Acid) 1 mg PO DAILYCM [facility] Last Admin: 08/28/19 10:19 Dose: 1 mg Documented by: Glucagon () 1 mg IM .X1 PRN PRN Reason: Hypoglycemia Meropenem 1 gm/ Sodium (Chloride) 120 mls @ 33 mls/hr IV Q8 [facility] Last Infusion: 08/28/19 10:30 Dose: Infused Documented by: Sodium Chloride () 250 mls @ 15 mls/hr IV .[id number] PRN PRN Reason: Saline Flush Last Infusion: 08/23/19 11:24 Dose: Infused Documented by: Sodium Chloride () 250 mls @ 15 mls/hr IV .[id number] PRN PRN Reason: Additional IVPB Infusion Eravacycline 125 mg/ Sodium (Chloride) 262.5 mls @ 262.5 mls/hr IV Q12 [facility] Last Infusion: 08/28/19 00:35 Dose: Infused Documented by: Daptomycin 1,000 mg/ Sodium (Chloride) 70 mls @ 140 mls/hr IV Q24 [facility] Last Infusion: 08/27/19 11:45 Dose: Infused Documented by: Dextrose () 1,000 mls @ 75 mls/hr IV .[id number] [facility] Last Admin: 08/27/19 22:17 Dose: 75 mls/hr Documented by: Insulin Human Lispro (Humalog Kwikpen (Bkc)) 0 unit SC Q6H [facility]; Protocol Last Admin: 08/28/19 07:46 Dose: Not Given Documented by: Lactobacillus Acidophilus (Acidophilus) 2 tablet PO DAILY [facility] Last Admin: 08/28/19 10:20 Dose: 2 tablet Documented by: Metoprolol Tartrate (Lopressor (Beta Dana)) 100 mg PO BID [facility] Last Admin: 08/28/19 10:19 Dose: 100 mg Documented by: Morphine Sulfate () 1 mg IV Q3H PRN PRN PRN Reason: Pain Score 6-10/10 Last Admin: 08/26/19 21:28 Dose: 1 mg Documented by: Nutritional Formula (Mike - [place] Flavor) 1 packet PO BID [facility] Last Admin: 08/28/19 10:18 Dose: 1 packet Documented by: Nutritional Formula (Lactose Free) (Ensure Enlive) 120 ml PO 4X/DAY [facility] Last Admin: 08/28/19 10:17 Dose: 120 ml Documented by: Nystatin (Mycostatin Powder) 1 applic TOPICAL BID [facility]; Protocol Last Admin: 08/28/19 10:31 Dose: 1 applicatio Documented by: Polyethylene Glycol (Miralax) 17 gm PO DAILY [facility] Last Admin: 08/28/19 10:18 Dose: 17 gm Documented by: Potassium Chloride (Potassium Chl Soln) 20 meq PO BIDCM [facility] Last Admin: 08/28/19 10:17 Dose: 20 meq Documented by: Promethazine HCl (Phenergan Tablet) 25 mg PO Q4H PRN PRN PRN Reason: NAUSEA/VOMITING Sodium Chloride () 10 - 40 ml IV UD PRN PRN Reason: SALINE FLUSH Last Admin: 08/26/19 21:29 Dose: 20 ml Documented by: Sodium Hypochlorite (Dakins Solution 0.25% (1/2 Strength)) 1 applic TOPICAL BID [facility]; Protocol Last Admin: 08/28/19 10:20 Dose: 1 applicatio Documented by: Valproic Acid (Depakene) 750 mg PO TID [facility] Medical Necessity - Tobacco Use Smoking Status: Current every day smoker Assessment/Plan All Active Problems (Last Updated 08/25/19 @ 08:[address] Samina Heredia MD) Cecum perforation (Acute) Multiple drug resistant Acinetobacter infection (Acute) Methicillin resistant Staphylococcus aureus infection (Acute) Severe sepsis (Acute) Sacral wound (Acute) UTI (urinary tract infection) (Acute) 59-year-old male status post end colostomy, ileocecectomy, sepsis due to in fected sacral wound Patient did well with his swallow eval is on nectar thickened will advance to Soft/regular see if you may be eat a little more food, continue Ensure Good colostomy output-No signs of any retraction on the stoma No fevers since 3:00 yesterday. Antibiotics per ID. Did also discuss this with patient's POA Martha Manzano M.D. Pager: [phone] [facility] [address] [place] [address], [facility], [address] [place] [id number] Office: [phone]
[2019-08-28] MEDS: 0.9% Saline Lock 10 ML Syringe IV ×2 (12:05→14:18)
[2019-08-28 12:21] LABS: Bedside Glucose 131 mg/dL (70-110)
[2019-08-28 14:00] LABS: Hematocrit 28.2 % (40-54); Hemoglobin 8.5 g/dL (13.0-16.5)
--- NOTE | 2019-08-28 14:03 | PCM.NTREPORT ---
Nutrition Therapy Report - History Nutrition Services has been consulted to:: Manage nutrient details of diet order, Manage enteral nutrition Current diet / nutrition support order:: regular diet-puree/honey thick; Mike BID, Ensure w/ meals, magic cup w/ dinner - Anthropometric Measurements Height:: 5 ft 9 in Weight:: 132 kg Body Mass Index (BMI):: 43.0 - Relevant Labs Relevant Labs:: WBC 12.1 K/mm3 (4.4-11.0) H 08/28/19 06:14 RBC 2.70 M/mm3 (4.6-6.2) L 08/28/19 06:14 Hgb 8.5 g/dL (13.0-16.5) L 08/28/19 13:50 Hct 28.2 % (40-54) L 08/28/19 13:50 MCV 96.7 fL (80-94) H 08/28/19 06:14 MCHC 29.9 g/dL (32-36) L 08/28/19 06:14 RDW Std Deviation 58.7 fl (35.1-43.9) H 08/28/19 06:14 RDW Coeff of Tio 16.8 % (11.6-14.6) H 08/28/19 06:14 Plt Count 484 K/mm3 (150-450) H 08/18/19 11:45 Immature Gran % (Auto) 2.100 % (0.0-0.9) H 08/28/19 06:14 Neut % (Auto) 70.2 % (47-70) H 08/28/19 06:14 Lymph % (Auto) 17.0 % (19-41) L 08/28/19 06:14 Sully % (Auto) 10.3 % (0-10) H 08/24/19 07:40 Absolute Neuts (auto) 8.5 X10^3/uL (2.0-7.7) H 08/28/19 06:14 Sodium 146 mmol/L (136-145) H 08/26/19 04:00 Potassium 3.2 mmol/L (3.5-5.1) L 08/27/19 04:40 Chloride 111 mmol/L (98-107) H 08/28/19 06:14 Anion Gap 4 (5-15) L 08/20/19 04:00 BUN 28 mg/dL (7-18) H 08/28/19 06:14 Creatinine 0.60 mg/dL (0.70-1.30) L 08/28/19 06:14 BUN/Creatinine Ratio 46.4 RATIO (10-20) H 08/28/19 06:14 Glucose 108 mg/dL (74-106) H 08/28/19 06:14 Lactic Acid 3.6 mmol/L (0.4-1.9) H* 08/24/19 23:05 Calcium 7.6 mg/dL (8.5-10.1) L 08/28/19 06:14 Total Bilirubin 1.10 mg/dL (0.20-1.00) H 08/24/19 07:40 Direct Bilirubin 0.77 mg/dL (0.00-0.30) H 08/25/19 06:30 AST 190 U/L (15-37) H 08/25/19 06:30 ALT 129 U/L (16-61) H 08/25/19 06:30 Alkaline Phosphatase 297 U/L (45-117) H 08/25/19 06:30 Ammonia 50.0 umol/L (11-32) H 08/24/19 07:40 Albumin 1.5 g/dL (3.2-5.0) L 08/25/19 06:30 Globulin 5.2 g/dL (2.2-4.2) H 08/25/19 06:30 Albumin/Globulin Ratio 0.3 RATIO (0.9-2.4) L 08/24/19 07:40 Prealbumin 5.1 mg/dL (20.0-40.0) L 08/20/19 04:00 Triglycerides 502 mg/dL (-199) H 08/21/19 03:05 - Assessment Food / Nutrition-Related History:: Diet advanced to full liquids yesterday and tube feeds ordered to start nocturnally. However, pt removed NGT yesterday afternoon. THERAPEUTIC MASSAGE TECHNICIAN re-evaluated and diet advanced to regular, puree/honey thick. Wt increase of 2.3kg since last review. Has bilat ankle, generalized, and bilat pedal 2+ pitting edema per nursing documentation. May see additional wt loss as fluid status improves. Lunch tray observed- consumed 75% puree chicken, 100% vegetables, 25% mashed potatoes, and 120mL of Ensure Enlive. - Nutrition Diagnosis Problem / Etiology / Signs & Symptoms (PES):: Increased protein needs r/t stage IV pressure injury as evidenced by delayed wound healing, oral intake <50% of estimated nutritional needs for 3 days prior to enteral nutrition support initiation Evidence of Malnutrition Exists:: No - Nutrition Intervention Nutrition Prescription:: Estimated nutritional needs: [id number], 120-150 g protein - Food / Nutrient Delivery Interventions Summary of nutrition intervention:: Has Mike BID, Ensure w/ meals, and Magic Cup w/ dinner ordered for additional calories/protein if consumed. Will continue to monitor PO intake at meals and assess adequacy of nutritional needs. Better than anticipated PO intake at lunch this date (estimated 26 g protein, 320 calories). Nutrition support ordered as / adjusted to:: Will continue regular diet, consistency per THERAPEUTIC MASSAGE TECHNICIAN. Will continue Ensure Enlive w/ meals, Mike BID, and provide magic cup 1x/day for additional calories/protein if consumed. Nutrition education provided?: No - MNT Monitoring Further MNT monitoring and evaluation required?: Yes MNT Follow-up in:: 1-2 days
[2019-08-28] MEDS: Valproic Acid 250 MG/5 ML UDC 750 MG PO ×2 (14:24→22:27)
--- NOTE | 2019-08-28 15:26 | ECHOCS_ITS ---
Reason For Study: MURMUR Procedure This was a 2D Doppler, Color Flow transthoracic echocardiogram. The study was technically difficult. Due to body habitus and unable to reposition PT due to pain S/P abd. surgery. Exam performed portable in patient room. Left Ventricle Mildly dilated left ventricle. The estimated ejection fraction is 55 %. Stage 1 diastolic dysfunction. Paced septal motion. Right Ventricle Normal size and thickness. ICD or pacer leads identified within the right ventricle. Normal systolic function. Atria Normal left atrium. Normal right atrium. Normal atrial septum. Mitral Valve The mitral valve is structurally normal. No prolapse or stenosis seen. Tricuspid Valve Normal tricuspid valve. Unable to estimate RV systolic pressure due to insufficient tricuspid regurgitant envelope. Aortic Valve Normal aortic valve. Trisinus/trileaflet aortic valve. Pulmonic Valve The pulmonic valve is not well visualized. Great Vessels Normal aortic root. Normal arch. Pericardium/Pleural No pericardial effusion. Medication Diluted definity 3.0ml given slow IV push to enhance endocardial definition. MMode/2D Measurements & Calculations LVIDd: 5.2 cm IVSd: 1.1 cm Ao root diam: 3.5 cm LVIDs: 4.3 cm LVPWd: 1.3 cm FS: 15.7 % LAV(MOD-bp): 62.3 ml LA A4 area: 20.9 cm2 LA dimension(2D): 4.1 cm LAV(MOD-bp) Indexed: 25.7 ml/m2 LAV(MOD-sp2): 55.2 ml LAV(MOD-sp4): 59.4 ml Doppler Measurements & Calculations MV E max dayne: 80.7 cm/sec Lat Peak E' Dayne: 12.4 cm/sec Med Peak E' Dayne: 5.1 cm/sec MV A max dayne: 110.3 cm/sec E/E' lat: 6.5 E/E' med: 16.0 MV E/A: 0.73 Ao V2 max: 128.2 cm/sec LV V1 max: 100.3 cm/sec PA V2 max: 148.1 cm/sec Ao max P.6 mmHg LV V1 max P.0 mmHg Ao V2 mean: 92.4 cm/sec Ao mean P.6 mmHg Ao V2 VTI: 19.1 cm Interpretation Summary Mildly dilated left ventricle. The estimated ejection fraction is 55 %. Stage 1 diastolic dysfunction. Unable to estimate RV systolic pressure due to insufficient tricuspid regurgitant envelope. The study was technically difficult. Contrast injection was performed. There is no comparison study available. Ordering Physician: Todd Garcia Referring Physician: Natalio Perez Performed By: Yris Jimenez RDCS, RVT
[2019-08-28 17:10] LABS: Bedside Glucose 129 mg/dL (70-110)
[2019-08-28] MEDS: Atorvastatin Calcium 80 MG Tablet PO (22:27)
[2019-08-29] VITALS (11 sets, daily range): BP systolic 121–135; BP diastolic 66–71; PULSE 88–115; RESP 15–20; TEMP 36.7–37.2; O2SAT 95–97
[2019-08-29 00:01] LABS: Bedside Glucose 122 mg/dL (70-110)
[2019-08-29] MEDS: Valproic Acid 250 MG/5 ML UDC 750 MG PO ×3 (06:10→22:09)
[2019-08-29] MEDS: Acetaminophen 650 MG/20 ML UDC PO (06:10)
[2019-08-29] MEDS: dilTIAZem 30 MG Tablet 60 MG PO ×3 (06:10→22:04)
[2019-08-29] MEDS: Menthol/Lanolin/Calamine/Znox 113 GM Tube 1 APPLIC TOPICAL ×2 (06:12→11:48)
[2019-08-29 06:30] LABS: Bedside Glucose 98 mg/dL (70-110)
[2019-08-29 07:00] LABS: Absolute Lymphocyte Count 2.92 X10^3/uL (0.83-4.51); Absolute Neutrophil Count 11.1 X10^3/uL (2.0-7.7); Basophil# 0.05 X10^3/uL; Basophil% 0.3 % (0-1); Eosinophil# 0.04 X10^3/uL; Eosinophils% 0.2 % (0-5); Hematocrit 25.7 % (40-54); Hemoglobin 8.1 g/dL (13.0-16.5); Lymphocyte # 2.92 X10^3/ul (4.0); Lymphocyte % 18.1 % (19-41); Mean Corp Hgb Conc 31.5 g/dL (32-36); Mean Corpuscular Hgb 29.7 pg (27.0-32.0); Mean Corpuscular Volume 94.1 fL (80-94); Mean Platelet Vol. 10.5 fl (6.2-12.0); Monocyte# 1.73 X10^3/uL; Monocyte% 10.7 % (0-10); NRBC Flagged by Analyzer 0.5 % (0-5); Neutrophil # 11.11 X10^3/uL (2.7-7.7); Neutrophil % 69.1 % (47-70); POSITIVE DIFFERENTIAL YES; Platelet Count 226 K/mm3 (150-450); RBC Distribution Width CV 16.6 % (11.6-14.6); RBC Distribution Width SD 56.2 fl (35.1-43.9); Red Blood Count 2.73 M/mm3 (4.6-6.2); White Blood Count 16.1 K/mm3 (4.4-11.0)
[2019-08-29 07:03] LABS: Differential Indicated SCAN CRITERIA MET
[2019-08-29 07:26] LABS: Atypical Lymphocyte RARE %; Differential Comment SCANNED
[2019-08-29 07:27] LABS: Anisocytosis RARE; Hypochromasia RARE
--- NOTE | 2019-08-29 09:14 | PN.SURG_ITS ---
Patient Problems: Active and Suspected Problems (Last Updated 08/25/19 @ 08:[address] Samina Heredia MD) Cecum perforation (Acute) Severe sepsis (Acute) Sacral wound (Acute) UTI (urinary tract infection) (Acute) Subjective: Patient still interactive still does Says ouch and then if you ask him what is wrong he says nothing so not completely aware.Patient still having bowel function from his colostomy. Tolerating diet did better with breakfast today than he did yesterday. - Physical Exam Vitals/I&O's: Vital Signs Temp Pulse Resp BP Pulse Ox 98.9 F 115 H 20 H 135/66 H 95 08/29/19 04:30 08/29/19 07:00 08/29/19 04:30 08/29/19 04:30 08/29/19 06:45 Oxygen Flow Rate (L/min) 2 Oxygen Delivery Method Room Air Weight: 288 lb 5.834 oz Body Mass Index (BMI) 43.0 Finger Stick Blood Glucose 191 Intake and Output for Last 24 Hours 08/27/19 08/28/19 08/29/19 23:59 23:59 23:59 Intake Total 5541.0 / 5541.0 4303.95 / 4303.95 376.05 / 376.05 Output Total 4315 / 4315 2925 / 2925 1050 / 1050 Balance 1226.0 / 1226.0 1378.95 / 1378.95 -673.95 / -673.95 General: Alert, Cooperative Abdomen: Soft, Tender - Near incision and colostomy, dee removed from incision and Steri-Strips placed, no peritoneal signs, - - colostomy-little retracted at bedside did revise with Eva 3-0 Vicryl sutures circumferentially. Right lower quadrant wound Open draining serosanguineous Microbiology Past 72 Hours 08/25/19 Unknown Blood Culture (Wb) - Arm Right Blood Culture - Preliminary Yeast Like Organism 08/19/19 16:06 Tissue - Sacral Gram Stain - Final 08/19/19 16:06 Tissue - Sacral Wound Culture - Preliminary Providencia stuartii Acinetobacter baumannii Vancomycin Resist. E. faecium 08/19/19 16:06 Tissue - Sacral Anaerobic Culture - Final Bacteroides fragilis group Anaerobic cocci 08/19/19 16:06 Tissue - Sacral Gram Stain - Final 08/19/19 16:06 Tissue - Sacral Wound Culture - Final Escherichia coli Proteus mirabilis Providencia stuartii Meth. resistant Staph. aureus 08/19/19 16:06 Tissue - Sacral Anaerobic Culture - Final Bacteroides fragilis group Anaerobic cocci Laboratory Results 08/28/19 10:55: Blood Type O NEGATIVE, Antibody Screen NEGATIVE, Crossmatch See Detail 08/28/19 12:18: POC Glucose 131 H 08/28/19 13:50: Hgb 8.5 L, Hct 28.2 L 08/28/19 17:03: POC Glucose 129 H 08/28/19 23:53: POC Glucose 122 H 08/29/19 06:14: POC Glucose 98 08/29/19 06:45: WBC 16.1 H, RBC 2.73 L, Hgb 8.1 L, Hct 25.7 L, MCV 94.1 H, MCH 29.7, MCHC 31.5 L D, RDW Std Deviation 56.2 H, RDW Coeff of Tio 16.6 H, Plt Count 226, MPV 10.5, Immature Gran % (Auto) 1.600 H, Neut % (Auto) 69.1, Lymph % (Auto) 18.1 L, [place] % (Auto) 10.7 H, Eos % (Auto) 0.2, Baso % (Auto) 0.3, Absolute Neuts (auto) 11.1 H, Absolute Lymphs (auto) 2.92, Nucleated RBC % 0.5, Differential Comment SCANNED, Diff Path Review May foll, Atypical Lymphocytes RARE, Hypochromasia RARE, Anisocytosis RARE Current Medications Acetaminophen (Tylenol Liquid) 650 mg PO Q6H PRN PRN PRN Reason: Pain Score 1-11/14 Last Admin: 08/29/19 06:10 Dose: 650 mg Documented by: [facility]ir[facility], Baby) [facility] Last Admin: 08/28/19 10:20 Dose: 81 mg Documented by: Atorvastatin Calcium (Lipitor) 80 mg PO QHS [facility] Last Admin: 08/28/19 22:27 Dose: 80 mg Documented by: Calamine/Phenol (Calmoseptine Ointment) 1 applic TOPICAL TID [facility]; Protocol Last Admin: 08/29/19 06:12 Dose: 1 applicatio Documented by: Dextrose (D50w Syringe) 0 gm IV X1 PRN; Protocol PRN Reason: Hypoglycemia Diazepam (Valium) 5 mg PO Q6H PRN PRN PRN Reason: SPASMS Diltiazem HCl (Cardizem) 60 mg PO Q8 [facility] Last Admin: 08/29/19 06:10 Dose: 60 mg Documented by: Enoxaparin Sodium (Lovenox) 40 mg SC DAILY [facility] Last Admin: 08/28/19 10:19 Dose: 40 mg Documented by: Famotidine (Pepcid) 20 mg PO DAILY [facility] Last Admin: 08/28/19 10:19 Dose: 20 mg Documented by: Fenofibrate (Tricor) 145 mg PO DAILY [facility] Last Admin: 08/28/19 10:19 Dose: 145 mg Documented by: Folic Acid (Folic Acid) 1 mg PO DAILYCM [facility] Last Admin: 08/28/19 10:19 Dose: 1 mg Documented by: Glucagon () 1 mg IM .X1 PRN PRN Reason: Hypoglycemia Meropenem 1 gm/ Sodium (Chloride) 120 mls @ 33 mls/hr IV Q8 [facility] Last Admin: 08/29/19 06:10 Dose: 33 mls/hr Documented by: Sodium Chloride () 250 mls @ 15 mls/hr IV .[id number] PRN PRN Reason: Saline Flush Last Infusion: 08/23/19 11:24 Dose: Infused Documented by: Sodium Chloride () 250 mls @ 15 mls/hr IV .[id number] PRN PRN Reason: Additional IVPB Infusion Eravacycline 125 mg/ Sodium (Chloride) 262.5 mls @ 262.5 mls/hr IV Q12 [facility] Last Infusion: 08/28/19 23:29 Dose: Infused Documented by: Daptomycin 1,000 mg/ Sodium (Chloride) 70 mls @ 140 mls/hr IV Q24 [facility] Last Infusion: 08/28/19 12:35 Dose: Infused Documented by: Dextrose () 1,000 mls @ 75 mls/hr IV .[id number] [facility] Last Admin: 08/29/19 02:45 Dose: 75 mls/hr Documented by: Micafungin Sodium 100 mg/ (Dextrose) 105 mls @ 100 mls/hr IV Q24 [facility] Last Infusion: 08/28/19 18:01 Dose: Infused Documented by: Insulin Human Lispro (Humalog Kwikpen (Bkc)) 0 unit SC Q6H [facility]; Protocol Last Admin: 08/29/19 06:15 Dose: Not Given Documented by: Lactobacillus Acidophilus (Acidophilus) 2 tablet PO DAILY [facility] Last Admin: 08/28/19 10:20 Dose: 2 tablet Documented by: Metoprolol Tartrate (Lopressor (Beta Dana)) 100 mg PO BID [facility] Last Admin: 08/28/19 22:27 Dose: 100 mg Documented by: Morphine Sulfate () 1 mg IV Q3H PRN PRN PRN Reason: Pain Score 6-10/10 Last Admin: 08/26/19 21:28 Dose: 1 mg Documented by: Nutritional Formula (Mike - [place] Flavor) 1 packet PO BID [facility] Last Admin: 08/28/19 22:28 Dose: 1 packet Documented by: Nutritional Formula (Lactose Free) (Ensure Enlive) 120 ml PO 4X/DAY [facility] Last Admin: 08/28/19 23:10 Dose: Not Given Documented by: Nystatin (Mycostatin Powder) 1 applic TOPICAL BID [facility]; Protocol Last Admin: 08/28/19 22:29 Dose: 1 applicatio Documented by: Potassium Chloride (Potassium Chl Soln) 20 meq PO BIDCM [facility] Last Admin: 08/28/19 17:30 Dose: 20 meq Documented by: Promethazine HCl (Phenergan Tablet) 25 mg PO Q4H PRN PRN PRN Reason: NAUSEA/VOMITING Sodium Chloride () 10 - 40 ml IV UD PRN PRN Reason: SALINE FLUSH Last Admin: 08/28/19 14:18 Dose: 10 ml Documented by: Sodium Hypochlorite (Dakins Solution 0.25% (1/2 Strength)) 1 applic TOPICAL BID [facility]; Protocol Last Admin: 08/28/19 22:29 Dose: 1 applicatio Documented by: Valproic Acid (Depakene) 750 mg PO TID [facility] Last Admin: 08/29/19 06:10 Dose: 750 mg Documented by: Medical Necessity - Tobacco Use Smoking Status: Current every day smoker Assessment/Plan All Active Problems (Last Updated 08/25/19 @ 08:[address] Samina Heredia MD) Cecum perforation (Acute) Multiple drug resistant Acinetobacter infection (Acute) Methicillin resistant Staphylococcus aureus infection (Acute) Severe sepsis (Acute) Sacral wound (Acute) UTI (urinary tract infection) (Acute) 59-year-old male status post end colostomy, ileocecectomy, sepsis due to infected sacral wound, Bacteremia --Continue dysphasia diet and Ensure as tolerated --Good colostomy output-Stoma does appear to be retracted some. Revision of stoma at bedside. Areas prepped and draped in usual sterile fashion with Betadine. Patient did get 1% lidocaine with epinephrine at the skin as well as 0.5 of Dilaudid and other for morphine during the procedure. Babcocks were used to grasp the stoma previous sutures were removed. Stoma was able to be pulled up from the abdomen without difficulty. 3-0 Vicryl [place] sutures were completed circumferentially.Edge of ostomy was bleeding. Ostomy appliance was replaced.Patient tolerated procedure well. --Yeast growing in blood cultures from 08/24 microfungi and added per ID, Antibiotics per ID. --Did also discuss this with patient's KASEY Thomas --Dr. Estrada will be covering this weekend. Janice Manzano M.D. Pager: [phone] [facility] [address] [place] [address], [address] [place] [address] Office: [phone]
[2019-08-29] MEDS: HYDROmorphone 0.5 MG/0.5 ML SYRINGE IV (10:57)
--- NOTE | 2019-08-29 11:06 | PCM.PROGNOTE ---
Patient Problems: Active and Suspected Problems (Last Updated 08/25/19 @ 08:[address] Samina Heredia MD) Cecum perforation (Acute) Severe sepsis (Acute) Sacral wound (Acute) UTI (urinary tract infection) (Acute) Subjective: Chief complaint: Follow-up after admission for severe sepsis secondary to stage IV infected sacral decubitus ulcer/osteomyelitis status post excision with partial ostectomy for osteomyelitis, patient underwent diversion end colostomy that was complicated by perforation of the cecum status post laparoscopic ileocecectomy with primary anastomosis. Patient seen and examined. No acute events overnight. This morning, he was asking for juice to drink. He denied abdominal pain. Denied nausea or vomiting. He denied shortness of breath. He has been on room air, afebrile, blood pressure and heart rate are stable, pulse ox is 95% on room air. - Physical Exam Vitals/I&O's: Vital Signs Temp Pulse Resp BP Pulse Ox 98.9 F 115 H 20 H 135/66 H 95 08/29/19 04:30 08/29/19 07:00 08/29/19 04:30 08/29/19 04:30 08/29/19 06:45 Oxygen Flow Rate (L/min) 2 Oxygen Delivery Method Room Air Weight: 288 lb 5.834 oz Body Mass Index (BMI) 43.0 Finger Stick Blood Glucose 191 Intake and Output for Last 24 Hours 08/27/19 08/28/19 08/29/19 23:59 23:59 23:59 Intake Total 5541.0 / 5541.0 4303.95 / 4303.95 376.05 / 376.05 Output Total 4315 / 4315 2925 / 2925 1050 / 1050 Balance 1226.0 / 1226.0 1378.95 / 1378.95 -673.95 / -673.95 General: Alert, Cooperative, No apparent distress, Confused, Disoriented HEENT: Atraumatic, PERRLA, EOMI, Normocephalic Oral: Moist Mucosa, No Gingival or Mucosal Lesions/ Ulcerations Neck: Supple, No JVD, Negative Carotid Bruits, Trachea Midline, Thyroid Normal Size and Texture Lungs: Clear to auscultation, Normal air movement, No rhonchi, No wheeze, No rales, Diminished Cardiovascular: Regular rate, Regular Rhythm, Normal S1, Normal S2, PMI Normal Abdomen: Bowel Sounds Present, Soft, Non Tender, Non-Distended, No Hepato-splenomegaly, Obese, - - Midline incision is clean and dry, colostomy bag in place. Extremities: No clubbing, No cyanosis, Edema Skin: No rashes, No breakdown Lymphatic: No Cervical, Supraclavicular, or Inguinal Adenopathy Neurological: Cranial nerves II-XII grossly intact, Neuro grossly intact Psych/Mental Status: Flat Affect Microbiology Past 72 Hours 08/25/19 Unknown Blood Culture (Wb) - Arm Right Blood Culture - Preliminary Yeast Like Organism 08/19/19 16:06 Tissue - Sacral Gram Stain - Final 08/19/19 16:06 Tissue - Sacral Wound Culture - Preliminary Providencia stuartii Acinetobacter baumannii Vancomycin Resist. E. faecium 08/19/19 16:06 Tissue - Sacral Anaerobic Culture - Final Bacteroides fragilis group Anaerobic cocci 08/19/19 16:06 Tissue - Sacral Gram Stain - Final 08/19/19 16:06 Tissue - Sacral Wound Culture - Final Escherichia coli Proteus mirabilis Providencia stuartii Meth. resistant Staph. aureus 08/19/19 16:06 Tissue - Sacral Anaerobic Culture - Final Bacteroides fragilis group Anaerobic cocci Laboratory Results 08/28/19 10:55: Blood Type O NEGATIVE, Antibody Screen NEGATIVE, Crossmatch See Detail 08/28/19 12:18: POC Glucose 131 H 08/28/19 13:50: Hgb 8.5 L, Hct 28.2 L 08/28/19 17:03: POC Glucose 129 H 08/28/19 23:53: POC Glucose 122 H 08/29/19 06:14: POC Glucose 98 08/29/19 06:45: WBC 16.1 H, RBC 2.73 L, Hgb 8.1 L, Hct 25.7 L, MCV 94.1 H, MCH 29.7, MCHC 31.5 L D, RDW Std Deviation 56.2 H, RDW Coeff of Tio 16.6 H, Plt Count 226, MPV 10.5, Immature Gran % (Auto) 1.600 H, Neut % (Auto) 69.1, Lymph % (Auto) 18.1 L, [place] % (Auto) 10.7 H, Eos % (Auto) 0.2, Baso % (Auto) 0.3, Absolute Neuts (auto) 11.1 H, Absolute Lymphs (auto) 2.92, Nucleated RBC % 0.5, Differential Comment SCANNED, Diff Path Review May foll, Atypical Lymphocytes RARE, Hypochromasia RARE, Anisocytosis RARE Current Medications Acetaminophen (Tylenol Liquid) 650 mg PO Q6H PRN PRN PRN Reason: Pain Score 1-10/10 Last Admin: 08/29/19 06:10 Dose: 650 mg Documented by: Aspirin (Aspirin, Baby) 81 mg PO DAILYCM [facility] Last Admin: 08/28/19 10:20 Dose: 81 mg Documented by: Atorvastatin Calcium (Lipitor) 80 mg PO QHS [facility] Last Admin: 08/28/19 22:27 Dose: 80 mg Documented by: Calamine/Phenol (Calmoseptine Ointment) 1 applic TOPICAL TID [facility]; Protocol Last Admin: 08/29/19 06:12 Dose: 1 applicatio Documented by: Dextrose (D50w Syringe) 0 gm IV X1 PRN; Protocol PRN Reason: Hypoglycemia Diazepam (Valium) 5 mg PO Q6H PRN PRN PRN Reason: SPASMS Diltiazem HCl (Cardizem) 60 mg PO Q8 [facility] Last Admin: 08/29/19 06:10 Dose: 60 mg Documented by: Enoxaparin Sodium (Lovenox) 40 mg SC DAILY [facility] Last Admin: 08/28/19 10:19 Dose: 40 mg Documented by: Famotidine (Pepcid) 20 mg PO DAILY [facility] Last Admin: 08/28/19 10:19 Dose: 20 mg Documented by: Fenofibrate (Tricor) 145 mg PO DAILY [facility] Last Admin: 08/28/19 10:19 Dose: 145 mg Documented by: [facility]) [facility] Last Admin: 08/28/19 10:19 Dose: 1 mg Documented by: Glucagon () 1 mg IM .X1 PRN PRN Reason: Hypoglycemia Meropenem 1 gm/ Sodium (Chloride) 120 mls @ 33 mls/hr IV Q8 [facility] Last Admin: 08/29/19 06:10 Dose: 33 mls/hr Documented by: Sodium Chloride () 250 mls @ 15 mls/hr IV .[id number] PRN PRN Reason: Saline Flush Last Infusion: 08/23/19 11:24 Dose: Infused Documented by: Sodium Chloride () 250 mls @ 15 mls/hr IV .[id number] PRN PRN Reason: Additional IVPB Infusion Eravacycline 125 mg/ Sodium (Chloride) 262.5 mls @ 262.5 mls/hr IV Q12 [facility] Last Infusion: 08/28/19 23:29 Dose: Infused Documented by: Daptomycin 1,000 mg/ Sodium (Chloride) 70 mls @ 140 mls/hr IV Q24 [facility] Last Infusion: 08/28/19 12:35 Dose: Infused Documented by: Dextrose () 1,000 mls @ 75 mls/hr IV .[id number] [facility] Last Admin: 08/29/19 02:45 Dose: 75 mls/hr Documented by: Micafungin Sodium 100 mg/ (Dextrose) 105 mls @ 100 mls/hr IV Q24 [facility] Last Infusion: 08/28/19 18:01 Dose: Infused Documented by: Insulin Human Lispro (Humalog Kwikpen (Bkc)) 0 unit SC Q6H [facility]; Protocol Last Admin: 08/29/19 06:15 Dose: Not Given Documented by: Lactobacillus Acidophilus (Acidophilus) 2 tablet PO DAILY [facility] Last Admin: 08/28/19 10:20 Dose: 2 tablet Documented by: Metoprolol Tartrate (Lopressor (Beta Dana)) 100 mg PO BID [facility] Last Admin: 08/28/19 22:27 Dose: 100 mg Documented by: Morphine Sulfate () 1 mg IV Q3H PRN PRN PRN Reason: Pain Score 6-10/10 Last Admin: 08/26/19 21:28 Dose: 1 mg Documented by: Nutritional Formula (Mike - [place] Flavor) 1 packet PO BID [facility] Last Admin: 08/28/19 22:28 Dose: 1 packet Documented by: Nutritional Formula (Lactose Free) (Ensure Enlive) 120 ml PO 4X/DAY [facility] Last Admin: 08/28/19 23:10 Dose: Not Given Documented by: Nystatin (Mycostatin Powder) 1 applic TOPICAL BID [facility]; Protocol Last Admin: 08/28/19 22:29 Dose: 1 applicatio Documented by: Pantoprazole Sodium (Protonix) 40 mg PO DAILY [facility] Potassium Chloride (Potassium Chl Soln) [facility]q [facility] Last Admin: 08/28/19 17:30 Dose: 20 meq Documented by: Promethazine HCl (Phenergan Tablet) 25 mg PO Q4H PRN PRN PRN Reason: NAUSEA/VOMITING Sodium Chloride () 10 - 40 ml IV UD PRN PRN Reason: SALINE FLUSH Last Admin: 08/28/19 14:18 Dose: 10 ml Documented by: Sodium Hypochlorite (Dakins Solution 0.25% (1/2 Strength)) 1 applic TOPICAL BID [facility]; Protocol Last Admin: 08/28/19 22:29 Dose: 1 applicatio Documented by: Valproic Acid (Depakene) 750 mg PO TID [facility] Last Admin: 08/29/19 06:10 Dose: 750 mg Documented by: Medical Necessity - Tobacco Use Smoking Status: Current every day smoker Assessment/Plan All Active Problems (Last Updated 08/25/19 @ 08:[address] Samina Heredia MD) Cecum perforation (Acute) Multiple drug resistant Acinetobacter infection (Acute) Methicillin resistant Staphylococcus aureus infection (Acute) Severe sepsis (Acute) Sacral wound (Acute) UTI (urinary tract infection) (Acute) This is a 59 years old male patient [facility] because of change in mental status, found to have severe sepsis secondary to stage IV infected sacral decubitus ulcer, underwent excision with partial ostectomy for osteomyelitis, underwent diverting colostomy which was complicated by perforation of the cecum status post laparoscopic ileocecectomy with primary anastomosis. #1 severe sepsis: Attributed to infected sacral stage IV decubitus ulcer/osteomyelitis as well as acute complicated cystitis. Remained on IV daptomycin, Eravacycline and meropenem. He remained afebrile for more than 24 hours, WBC is trending. Blood, wound and urine culture reviewed as below. Heart rate stabilized, blood pressure stable. Infectious disease on the case. Plan: Continue same treatment. #2 acute respiratory failure: Status post extubation. Currently, he is on room air and pulse ox is 95 %. #3 polymicrobial infected stage IV sacral decubitus ulcer/osteomyelitis: Status post excision and partial ostectomy for osteomyelitis, postoperative day 10. Patient remains on IV antibiotics as mentioned above. Wound culture revealed E. coli, Proteus mirabilis, Providencia stuartii and MRSA as well as vancomycin resistant Enterococcus faecium. Infectious disease on the case. He has been afebrile for more than 24 hours. Plan to continue same treatment. #4 Enterobacter cloacae/staph epidermidis bacteremia: He is on IV daptomycin, meropenem and ERAVACYCLINE. Repeat blood culture revealed yeastlike organism. There is another repeat blood culture from August 28, 2019 which is pending at this time. Infectious disease on the case, awaiting recommendations regarding this yeastlike organism in the blood culture from August 24. #5 acute complicated cystitis: In the setting of chronic indwelling Chakraborty catheter. Patient was on IV antibiotics. Culture revealed presumptive Lilliam albicans. #6 acute metabolic encephalopathy: Attributed to severe sepsis. Patient has been becoming more interactive, more alert, remains confused and disoriented. #7 status post diversion colostomy: That was complicated by perforation of the cecum, status post laparoscopic ileocecectomy and primary stenosis. General surgery on the case. Patient has been tolerating diet. #8 elevated LFT: Likely due to severe sepsis. No right upper quadrant tenderness. Plan to monitor. #9 hypernatremia/hypokalemia: Both serum sodium and potassium normalized. #10 type 2 diabetes mellitus: Blood sugar has been stable. He is on sliding scale only. Metformin held. #11 seizure disorder: Stable, continue p.o. valproic acid. #12 hypertension: Blood pressure is maintained at this time, continue metoprolol. #13 CAD status post CABG: Stable, no acute issues. Continue aspirin, statins, beta-blockers. #14 paroxysmal atrial fibrillation: Heart rate has been in 90s, continue Cardizem and metoprolol for rate control. He is not on anticoagulation. #15 DVT prophylaxis: Subcu Lovenox. This note was generated with [employer] dictation software. It may contain incorrect words, spelling, and punctuation that were not noted in checking the note before signing. Inpatient E&M: 84390 Subs Hosp L2
[2019-08-29] MEDS: Morphine 4 MG/ML Syringe IV (11:07)
[2019-08-29] MEDS: Folic Acid 1 MG Tablet PO (11:52)
[2019-08-29] MEDS: Aspirin 81 MG TAB.CHEW PO (11:52)
[2019-08-29] MEDS: Famotidine 20 MG Tablet PO (11:52)
[2019-08-29] MEDS: Fenofibrate 145 MG Tablet PO (11:52)
[2019-08-29] MEDS: Metoprolol Tartrate 100 MG Tablet PO ×2 (11:53→22:04)
[2019-08-29] MEDS: Enoxaparin 40 MG/0.4 ML Syringe SC (11:53)
[2019-08-29] MEDS: DAKIN'S SOL HALF STRENGTH (=0.25%) 1 APPLIC TOPICAL (11:55)
[2019-08-29] MEDS: Nystatin Powder 15gm Bottle 1 APPLIC TOPICAL (12:01)
[2019-08-29 12:14] LABS: Pathologist Review Reviewed
--- NOTE | 2019-08-29 13:19 | CASEMGMT ---
LUNA faxed COVID test and COVID transfer tool form to Kirstin at [facility] per her request. Amna ZARATE FLOSSER
[2019-08-29] MEDS: 0.9% Saline Lock 10 ML Syringe IV (13:33)
--- NOTE | 2019-08-29 13:39 | CASEMGMT ---
LUNA called Kirstin at [facility] and notified her patient will not be returning today, but possibly over the weekend. She thanked for the update. Green sheet on chart. Plan: d/c back to [facility] under intermediate level of care when ready. Amna ZAARTE MSW
[2019-08-29 15:23] LABS: Bedside Glucose 129 mg/dL (70-110)
--- NOTE | 2019-08-29 15:40 | PN.ID_ITS ---
Patient Problems: Active and Suspected Problems (Last Updated 08/25/19 @ 08:[address] Samina Heredia MD) Cecum perforation (Acute) Severe sepsis (Acute) Sacral wound (Acute) UTI (urinary tract infection) (Acute) Subjective: Feeling ok, no fever, denies vision changes. - Physical Exam Vitals/I&O's: Vital Signs Temp Pulse Resp BP Pulse Ox 98.3 F 103 H 15 121/69 H 97 08/29/19 11:45 08/29/19 14:59 08/29/19 11:45 08/29/19 11:53 08/29/19 11:45 Oxygen Flow Rate (L/min) 2 Oxygen Delivery Method Room Air Weight: 130.8 kg Body Mass Index (BMI) 43.0 Finger Stick Blood Glucose 191 Intake and Output for Last 24 Hours 08/27/19 08/28/19 08/29/19 23:59 23:59 23:59 Intake Total 5541.0 / 5541.0 4303.95 / 4303.95 1173.55 / 1173.55 Output Total 4315 / 4315 2925 / 2925 1900 / 1900 Balance 1226.0 / 1226.0 1378.95 / 1378.95 -726.45 / -726.45 General: Cooperative, No apparent distress Lungs: Clear to auscultation, Normal air movement Cardiovascular: Regular rate, Regular Rhythm Abdomen: Soft, Non Tender, Non-Distended Extremities: Edema Skin: Ulcer/ Wound Microbiology Past 72 Hours 08/25/19 Unknown Blood Culture (Wb) - Arm Right Blood Culture - Preliminary Yeast Like Organism 08/19/19 16:06 Tissue - Sacral Gram Stain - Final 08/19/19 16:06 Tissue - Sacral Wound Culture - Preliminary Providencia stuartii Acinetobacter baumannii Vancomycin Resist. E. faecium 08/19/19 16:06 Tissue - Sacral Anaerobic Culture - Final Bacteroides fragilis group Anaerobic cocci Laboratory Results 08/28/19 17:03: POC Glucose 129 H 08/28/19 23:53: POC Glucose 122 H 08/29/19 06:14: POC Glucose 98 08/29/19 06:45: WBC 16.1 H, RBC 2.73 L, Hgb 8.1 L, Hct 25.7 L, MCV 94.1 H, MCH 29.7, MCHC 31.5 L D, RDW Std Deviation 56.2 H, RDW Coeff of Tio 16.6 H, Plt Count 226, MPV 10.5, Immature Gran % (Auto) 1.600 H, Neut % (Auto) 69.1, Lymph % (Auto) 18.1 L, [place] % (Auto) 10.7 H, Eos % (Auto) 0.2, Baso % (Auto) 0.3, Absolute Neuts (auto) 11.1 H, Absolute Lymphs (auto) 2.92, Nucleated RBC % 0.5, Differential Comment SCANNED, Diff Path Review Reviewed, Atypical Lymphocytes RARE, Hypochromasia RARE, Anisocytosis RARE 08/29/19 13:51: POC Glucose 129 H Current Medications Acetaminophen (Tylenol Liquid) 650 mg PO Q6H PRN PRN PRN Reason: Pain Score 1-11/14 Last Admin: 08/29/19 06:10 Dose: 650 mg Documented by: [facility] Last Admin: 08/29/19 11:52 Dose: 81 mg Documented by: Atorvastatin Calcium (Lipitor) 80 mg PO QHS [facility] Last Admin: 08/28/19 22:27 Dose: 80 mg Documented by: Calamine/Phenol (Calmoseptine Ointment) 1 applic TOPICAL TID [facility]; Protocol Last Admin: 08/29/19 11:48 Dose: 1 applicatio Documented by: Dextrose (D50w Syringe) 0 gm IV X1 PRN; Protocol PRN Reason: Hypoglycemia Diazepam (Valium) 5 mg PO Q6H PRN PRN PRN Reason: SPASMS Diltiazem HCl (Cardizem) 60 mg PO Q8 [facility] Last Admin: 08/29/19 14:50 Dose: 60 mg Documented by: Enoxaparin Sodium (Lovenox) 40 mg SC DAILY [facility] Last Admin: 08/29/19 11:53 Dose: 40 mg Documented by: Famotidine (Pepcid) 20 mg PO DAILY [facility] Last Admin: 08/29/19 11:52 Dose: 20 mg Documented by: Fenofibrate (Tricor) 145 mg PO DAILY [facility] Last Admin: 08/29/19 11:52 Dose: 145 mg Documented by: Folic Acid ([facility] Acid) [facility] Last Admin: 08/29/19 11:52 Dose: 1 mg Documented by: Glucagon () 1 mg IM .X1 PRN PRN Reason: Hypoglycemia Meropenem 1 gm/ Sodium (Chloride) 120 mls @ 33 mls/hr IV Q8 [facility] Last Infusion: 08/29/19 09:49 Dose: Infused Documented by: Sodium Chloride () 250 mls @ 15 mls/hr IV .[id number] PRN PRN Reason: Saline Flush Last Infusion: 08/23/19 11:24 Dose: Infused Documented by: Sodium Chloride () 250 mls @ 15 mls/hr IV .[id number] PRN PRN Reason: Additional IVPB Infusion Eravacycline 125 mg/ Sodium (Chloride) 262.5 mls @ 262.5 mls/hr IV Q12 [facility] Last Infusion: 08/29/19 14:38 Dose: Infused Documented by: Daptomycin 1,000 mg/ Sodium (Chloride) 70 mls @ 140 mls/hr IV Q24 [facility] Last Infusion: 08/29/19 12:46 Dose: Infused Documented by: Dextrose () 1,000 mls @ 75 mls/hr IV .[id number] [facility] Last Admin: 08/29/19 02:45 Dose: 75 mls/hr Documented by: Micafungin Sodium 100 mg/ (Dextrose) 105 mls @ 100 mls/hr IV Q24 [facility] Last Infusion: 08/29/19 12:49 Dose: Infused Documented by: Insulin Human Lispro (Humalog Kwikpen (Bkc)) 0 unit SC Q6H [facility]; Protocol Last Admin: 08/29/19 13:56 Dose: Not Given Documented by: Lactobacillus Acidophilus (Acidophilus) 2 tablet PO DAILY [facility] Last Admin: 08/29/19 11:52 Dose: 2 tablet Documented by: Lidocaine/Epinephrine (Lidocaine 1%/Epi [id number] Mdv) 0 ml INFILT X1 ONE Stop: 08/30/19 08:01 Metoprolol Tartrate (Lopressor (Beta Dana)) 100 mg PO BID [facility] Last Admin: 08/29/19 11:53 Dose: 100 mg Documented by: Morphine Sulfate () 1 mg IV Q3H PRN PRN PRN Reason: Pain Score 6-10/10 Last Admin: 08/26/19 21:28 Dose: 1 mg Documented by: Nutritional Formula (Mike - [place] Flavor) 1 packet PO BID [facility] Last Admin: 08/29/19 11:50 Dose: 1 packet Documented by: Nutritional Formula (Lactose Free) (Ensure Enlive) 120 ml PO 4X/DAY [facility] Last Admin: 08/29/19 14:48 Dose: 120 ml Documented by: Nystatin (Mycostatin Powder) 1 applic TOPICAL BID [facility]; Protocol Last Admin: 08/29/19 12:01 Dose: 1 applicatio Documented by: Pantoprazole Sodium (Protonix) 40 mg PO DAILY [facility] Potassium Chloride (Potassium Chl Soln) 20 meq PO BIDCM [facility] Last Admin: 08/29/19 11:50 Dose: 20 meq Documented by: Promethazine HCl (Phenergan Tablet) 25 mg PO Q4H PRN PRN PRN Reason: NAUSEA/VOMITING Sodium Chloride () 10 - 40 ml IV UD PRN PRN Reason: SALINE FLUSH Last Admin: 08/29/19 13:33 Dose: 30 ml Documented by: Sodium Hypochlorite (Dakins Solution 0.25% (1/2 Strength)) 1 applic TOPICAL BID [facility]; Protocol Last Admin: 08/29/19 11:55 Dose: 1 applicatio Documented by: Valproic Acid (Depakene) 750 mg PO TID [facility] Last Admin: 08/29/19 14:49 Dose: 750 mg Documented by: Medical Necessity - Tobacco Use Smoking Status: Current every day smoker Route of nutrition/ use of supplements: [] Nutritional Intake: [] IV Site: [] Chakraborty Catheter: [] - Assessment/Plan Antibiotics: [] Assessment/Plan: [] Active and Suspected Problems (Last Updated 12/07/17 @ 08:57 by Shira Conte) Severe sepsis (Acute) Sacral wound (Acute) UTI (urinary tract infection) (Acute) severe sepsis with polymicrobial bacteremia, 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 OR 08/[address] Nguyễn for I&D. OR 08/[address] Crystal for diverting ostomy. On linezolid/gudelia/eravacycline. Wbc much improved. Wound cx with providencia, VRE, XDR Acinetobacter, MRSA, proteus. Bcx with enterobacter x2 and MRSE. Spoke with micro lab and requested additional susc testing for the AcB. VRE was R to linezolid, had fever, so 08/24 changed linezolid to dapto. Given his ex tremely resistant bacteria, would keep in contact iso. Fever resolved, will check repeat bcx. Plan is for 6 weeks iv dapto/gudelia/eravacycline with weekly bmp, cbc, LFT, CK, and esr. ID followup in 2 weeks. Wrote rx. Now with new candidemia. Ordered TTE, repeat bcx, picc removal, and micafungin. No vision changes. No veg seen on TTE, but poor quality study. If bcx do not clear rapidly, will need ELLIE. Will follow, d/w nursing.
[2019-08-29 17:25] LABS: Bedside Glucose 152 mg/dL (70-110)
[2019-08-29] MEDS: Atorvastatin Calcium 80 MG Tablet PO (22:04)
[2019-08-30] VITALS (11 sets, daily range): BP systolic 98–142; BP diastolic 59–75; PULSE 86–107; RESP 14–20; TEMP 36.6–38.7; O2SAT 94–97
[2019-08-30 01:06] LABS: Bedside Glucose 103 mg/dL (70-110)
[2019-08-30] MEDS: Menthol/Lanolin/Calamine/Znox 113 GM Tube 1 APPLIC TOPICAL ×4 (02:50→21:18)
[2019-08-30] MEDS: DAKIN'S SOL HALF STRENGTH (=0.25%) 1 APPLIC TOPICAL ×3 (02:51→21:18)
[2019-08-30] MEDS: Nystatin Powder 15gm Bottle 1 APPLIC TOPICAL ×3 (02:51→21:19)
--- NOTE | 2019-08-30 03:42 | NURSING ---
Pt c/o pain. Unable to state where his pain is. Giving Tylenol at this time.
[2019-08-30] MEDS: Acetaminophen 650 MG/20 ML UDC PO (03:45)
[2019-08-30] MEDS: dilTIAZem 30 MG Tablet 60 MG PO ×3 (06:08→21:18)
[2019-08-30] MEDS: Valproic Acid 250 MG/5 ML UDC 750 MG PO ×3 (06:12→21:17)
[2019-08-30 06:21] LABS: Absolute Lymphocyte Count 2.16 X10^3/uL (0.83-4.51); Absolute Neutrophil Count 9.7 X10^3/uL (2.0-7.7); Basophil# 0.05 X10^3/uL; Basophil% 0.4 % (0-1); Eosinophil# 0.04 X10^3/uL; Eosinophils% 0.3 % (0-5); Hematocrit 27.7 % (40-54); Hemoglobin 7.9 g/dL (13.0-16.5); Lymphocyte # 2.16 X10^3/ul (4.0); Lymphocyte % 15.7 % (19-41); Mean Corp Hgb Conc 28.5 g/dL (32-36); Mean Corpuscular Hgb 29.2 pg (27.0-32.0); Mean Corpuscular Volume 102.2 fL (80-94); Mean Platelet Vol. 10.7 fl (6.2-12.0); Monocyte# 1.57 X10^3/uL; Monocyte% 11.4 % (0-10); NRBC Flagged by Analyzer 0.6 % (0-5); Neutrophil % 70.3 % (47-70); POSITIVE DIFFERENTIAL YES; POSITIVE MORPHOLOGY YES; Platelet Count 230 K/mm3 (150-450); RBC Distribution Width CV 17.1 % (11.6-14.6); RBC Distribution Width SD 61.8 fl (35.1-43.9); Red Blood Count 2.71 M/mm3 (4.6-6.2); White Blood Count 13.8 K/mm3 (4.4-11.0)
[2019-08-30 06:30] LABS: Bedside Glucose 98 mg/dL (70-110)
[2019-08-30 06:44] LABS: Differential Indicated SCAN CRITERIA MET
[2019-08-30] MEDS: 0.9% Saline Lock 10 ML Syringe IV (06:55)
[2019-08-30] MEDS: Morphine 2 MG/ML Syringe 1 MG IV (06:55)
[2019-08-30 06:56] LABS: ALB/GLOB Ratio 0.2 RATIO (0.9-2.4); AST(SGOT) 343 U/L (15-37); Alanine Aminotransfer ALT/SGPT 174 U/L (16-61); Albumin, Serum 1.2 g/dL (3.2-5.0); Alkaline Phosphatase 401 U/L (45-117); Anion Gap 8 (5-15); BUN 26 mg/dL (7-18); BUN/Creat Ratio 31.1 RATIO (10-20); Chloride 111 mmol/L (98-107); Creatinine, Serum 0.84 mg/dL (0.70-1.30); EST Glomerular Filtration Rate 100 mL/min (>60); Est Glom Filt Rate - Afr Amer 121 mL/min (>60); Estimated Creatinine Clearance 95.86 ml/min; Globulin 6.4 g/dL (2.2-4.2); Glucose 102 mg/dL (74-106); Potassium 3.9 mmol/L (3.5-5.1); Protein, Total 7.6 g/dL (6.4-8.2); Sodium Level 142 mmol/L (136-145)
[2019-08-30 07:05] LABS: Anisocytosis 1+; Hypochromasia 1+; Macrocytosis 1+; Platelet Estimate ADEQUATE (ADEQ)
--- NOTE | 2019-08-30 08:35 | PCM.PROGNOTE ---
Patient Problems: Active and Suspected Problems (Last Updated 08/25/19 @ 08:[address] Samina Heredia MD) Cecum perforation (Acute) Severe sepsis (Acute) Sacral wound (Acute) UTI (urinary tract infection) (Acute) Subjective: Chief complaint: Follow-up after admission for severe sepsis secondary to stage IV infected sacral decubitus ulcer/osteomyelitis status post excision with partial ostectomy for osteomyelitis complicated by bacteremia, patient underwent diversion end colostomy that was complicated by perforation of the cecum status post laparoscopic ileocecectomy with primary anastomosis. Later, he developed candidemia. Patient seen and examined. No acute events overnight. Today, again he is awake, alert, remains confused and disoriented. Denied abdominal pain. Denied chest pain or shortness of breath. He started having fevers again, heart rate has been around 100, blood pressure maintained, pulse ox is 96% on room air. - Physical Exam Vitals/I&O's: Vital Signs Temp Pulse Resp BP Pulse Ox 98.3 F 105 H 20 H 123/72 H 96 08/30/19 05:58 08/30/19 06:51 08/30/19 05:58 08/30/19 05:58 08/30/19 05:58 Oxygen Flow Rate (L/min) 2 Oxygen Delivery Method Room Air Weight: 281 lb 4.957 oz Body Mass Index (BMI) 43.0 Finger Stick Blood Glucose 191 Intake and Output for Last 24 Hours 08/28/19 08/29/19 08/30/19 23:59 23:59 23:59 Intake Total 4303.95 / 4303.95 3424.80 / 3424.80 581.25 / 581.25 Output Total 2925 / 2925 4300 / 4300 725 / 725 Balance 1378.95 / 1378.95 -875.20 / -875.20 -143.75 / -143.75 General: Alert, Cooperative, No apparent distress, Confused, Disoriented HEENT: Atraumatic, PERRLA, EOMI, Normocephalic Oral: Moist Mucosa, No Gingival or Mucosal Lesions/ Ulcerations Neck: Supple, No JVD, Negative Carotid Bruits, Trachea Midline, Thyroid Normal Size and Texture Lungs: Clear to auscultation, No rhonchi, No wheeze, No rales, Diminished Cardiovascular: Regular rate, Regular Rhythm, Normal S1, Normal S2, PMI Normal Abdomen: Bowel Sounds Present, Soft, Non Tender, Non-Distended, No Hepato-splenomegaly, - - Midline incision is clean and dry, colostomy bag in place. Extremities: No clubbing, No cyanosis, Edema Skin: No rashes, No breakdown Lymphatic: No Cervical, Supraclavicular, or Inguinal Adenopathy Neurological: Cranial nerves II-XII grossly intact, Neuro grossly intact Psych/Mental Status: Flat Affect Microbiology Past 72 Hours 08/28/19 09:46 Blood Culture (Wb) - Left Hand Blood Culture - Preliminary No growth in 48 hours. 08/28/19 09:40 Blood Culture (Wb) - Other Blood Culture - Preliminary No growth in 48 hours. 08/25/19 Unknown Blood Culture (Wb) - Arm Right Blood Culture - Preliminary Yeast Like Organism Laboratory Results 08/29/19 06:45: Diff Path Review Reviewed 08/29/19 13:51: POC Glucose 129 H 08/29/19 17:05: POC Glucose 152 H 08/30/19 00:48: POC Glucose 103 08/30/19 05:56: WBC 13.8 H, RBC 2.71 L, Hgb 7.9 L, Hct 27.7 L, MCV 102.2 H D, MCH 29.2, MCHC 28.5 L D, RDW Std Deviation 61.8 H, RDW Coeff of Tio 17.1 H, Plt Count 230, MPV 10.7, Immature Gran % (Auto) 1.900 H, Neut % (Auto) 70.3 H, Lymph % (Auto) 15.7 L, Wilkinson % (Auto) 11.4 H, Eos % (Auto) 0.3, Baso % (Auto) 0.4, Absolute Neuts (auto) 9.7 H, Absolute Lymphs (auto) 2.16, Nucleated RBC % 0.6, Differential Comment COMMENT, Diff Path Review May foll, Platelet Estimate ADEQUATE, Hypochromasia 1+, Anisocytosis 1+, Macrocytosis 1+ 08/30/19 05:56: Sodium 142, Potassium 3.9, Chloride 111 H, Carbon Dioxide 23.0, Anion Gap 8, BUN 26 H, Creatinine 0.84, Estim Creat Clear Calc 95.86, Est GFR (MDRD) Af Amer 121, Est GFR (MDRD) Non-Af 100, BUN/Creatinine Ratio 31.1 H, Glucose 102, Calcium 8.0 L, Total Bilirubin 1.50 H, AST 343 H, ALT 174 H, Alkaline Phosphatase 401 H, Total Protein 7.6, Albumin 1.2 L, Globulin 6.4 H, Albumin/Globulin Ratio 0.2 L 08/30/19 06:18: POC Glucose 98 Current Medications Acetaminophen (Tylenol Liquid) 650 mg PO Q6H PRN PRN PRN Reason: Pain Score 1-10/10 Last Admin: 08/30/19 03:45 Dose: 650 mg Documented by: Aspirin (Aspirin, Baby) 81 mg PO DAILYCM [facility] Last Admin: 08/29/19 11:52 Dose: 81 mg Documented by: Atorvastatin Calcium (Lipitor) 80 mg PO QHS [facility] Last Admin: 08/29/19 22:04 Dose: 80 mg Documented by: Calamine/Phenol (Calmoseptine Ointment) 1 applic TOPICAL TID [facility]; Protocol Last Admin: 08/30/19 07:03 Dose: 1 applicatio Documented by: Dextrose (D50w Syringe) 0 gm IV X1 PRN; Protocol PRN Reason: Hypoglycemia Diazepam (Valium) 5 mg PO Q6H PRN PRN PRN Reason: SPASMS Diltiazem HCl (Cardizem) 60 mg PO Q8 [facility] Last Admin: 08/30/19 06:08 Dose: 60 mg Documented by: Enoxaparin Sodium (Lovenox) 40 mg SC DAILY [facility] Last Admin: 08/29/19 11:53 Dose: 40 mg Documented by: Famotidine (Pepcid) 20 mg PO DAILY [facility] Last Admin: 08/29/19 11:52 Dose: 20 mg Documented by: Fenofibrate (Tricor) 145 mg PO DAILY [facility] Last Admin: 08/29/19 11:52 Dose: 145 mg Documented by: [facility] Last Admin: 08/29/19 11:52 Dose: 1 mg Documented by: Glucagon () 1 mg IM .X1 PRN PRN Reason: Hypoglycemia Meropenem 1 gm/ Sodium (Chloride) 120 mls @ 33 mls/hr IV Q8 [facility] Last Admin: 08/30/19 06:07 Dose: 33 mls/hr Documented by: Sodium Chloride () 250 mls @ 15 mls/hr IV .[id number] PRN PRN Reason: Saline Flush Last Infusion: 08/23/19 11:24 Dose: Infused Documented by: Sodium Chloride () 250 mls @ 15 mls/hr IV .[id number] PRN PRN Reason: Additional IVPB Infusion Eravacycline 125 mg/ Sodium (Chloride) 262.5 mls @ 262.5 mls/hr IV Q12 [facility] Last Infusion: 08/29/19 22:56 Dose: Infused Documented by: Daptomycin 1,000 mg/ Sodium (Chloride) 70 mls @ 140 mls/hr IV Q24 [facility] Last Infusion: 08/29/19 12:46 Dose: Infused Documented by: Dextrose () 1,000 mls @ 75 mls/hr IV .[id number] [facility] Last Admin: 08/30/19 06:05 Dose: 75 mls/hr Documented by: Micafungin Sodium 100 mg/ (Dextrose) 105 mls @ 100 mls/hr IV Q24 [facility] Last Infusion: 08/29/19 12:49 Dose: Infused Documented by: Insulin Human Lispro (Humalog Kwikpen (Bkc)) 0 unit SC Q6H [facility]; Protocol Last Admin: 08/30/19 06:19 Dose: Not Given Documented by: Lactobacillus Acidophilus (Acidophilus) 2 tablet PO DAILY [facility] Last Admin: 08/29/19 11:52 Dose: 2 tablet Documented by: Metoprolol Tartrate (Lopressor (Beta Dana)) 100 mg PO BID [facility] Last Admin: 08/29/19 22:04 Dose: 100 mg Documented by: Morphine Sulfate () 1 mg IV Q3H PRN PRN PRN Reason: Pain Score 6-10/10 Last Admin: 08/30/19 06:55 Dose: 1 mg Documented by: Nutritional Formula (Mike - [place] Flavor) 1 packet PO BID [facility] Last Admin: 08/29/19 22:24 Dose: 1 packet Documented by: Nutritional Formula (Lactose Free) (Ensure Enlive) 120 ml PO 4X/DAY [facility] Last Admin: 08/29/19 21:15 Dose: Not Given Documented by: Nystatin (Mycostatin Powder) 1 applic TOPICAL BID [facility]; Protocol Last Admin: 08/30/19 02:51 Dose: 1 applicatio Documented by: Pantoprazole Sodium (Protonix) 40 mg PO DAILY [facility] Potassium Chloride (Potassium Chl Soln) 20 meq PO BIDCM [facility] Last Admin: 08/29/19 16:53 Dose: 20 meq Documented by: Promethazine HCl (Phenergan Tablet) 25 mg PO Q4H PRN PRN PRN Reason: NAUSEA/VOMITING Sodium Chloride () 10 - 40 ml IV UD PRN PRN Reason: SALINE FLUSH Last Admin: 08/30/19 06:55 Dose: 20 ml Documented by: Sodium Hypochlorite (Dakins Solution 0.25% (1/2 Strength)) 1 applic TOPICAL BID [facility]; Protocol Last Admin: 08/30/19 02:51 Dose: 1 applicatio Documented by: Valproic Acid (Depakene) 750 mg PO TID [facility] Last Admin: 08/30/19 06:12 Dose: 750 mg Documented by: Medical Necessity - Tobacco Use Smoking Status: Current every day smoker Assessment/Plan All Active Problems (Last Updated 08/25/19 @ 08:[address] Samina Heredia MD) Cecum perforation (Acute) Multiple drug resistant Acinetobacter infection (Acute) Methicillin resistant Staphylococcus aureus infection (Acute) Severe sepsis (Acute) Sacral wound (Acute) UTI (urinary tract infection) (Acute) This is a 59 years old male patient presented to the emergency room from the halfway because of change in mental status, found to have severe sepsis secondary to stage IV infected sacral decubitus ulcer, underwent excision with partial ostectomy for osteomyelitis complicated by bacteremia, underwent diverting colostomy which was complicated by perforation of the cecum status post laparoscopic ileocecectomy with primary anastomosis. Later, he developed candidemia. #1 severe sepsis: Attributed to infected sacral stage IV decubitus ulcer/osteomyelitis, acute complicated cystitis, bacteremia and candidemia. Remained on IV daptomycin, Eravacycline and meropenem. Started on IV micafungin. He started having fevers again, WBC is trending down. Heart rate has been around 100, blood pressure is maintained. Blood, wound and urine culture reviewed as below. Infectious disease on the case. Plan: Continue same treatment. #2 polymicrobial infected stage IV sacral decubitus ulcer/osteomyelitis: Status post excision and partial ostectomy for osteomyelitis, postoperative day 11. Patient remains on IV antibiotics as mentioned above. Wound culture revealed E. coli, Proteus mirabilis, Providencia stuartii and MRSA as well as vancomycin resistant Enterococcus faecium. Infectious disease on the case. Started having fevers again, WBC is trending down. Plan to continue same treatment. #3 Enterobacter cloacae/staph epidermidis bacteremia: He is on IV daptomycin, meropenem and ERAVACYCLINE. Repeat blood culture revealed yeastlike organism, started on IV micafungin. Repeat blood culture from August 28, 2019 showed no growth in 48 hours. Repeat blood culture again done yesterday. Infectious disease on the case, plan as above. #4 candidemia: 1 bottle of blood culture revealed yeast like to the nursing. Patient started on IV micafungin. He started having spikes of fever again although WBC is still trending down. PICC line removed. Plan to continue same treatment. #5 acute complicated cystitis: In the setting of chronic indwelling Chakraborty catheter. Patient was on IV antibiotics. Culture revealed presumptive Lilliam albicans. #6 acute metabolic encephalopathy: Attributed to severe sepsis. Patient has been becoming more interactive, more alert, remains confused and disoriented. #7 status post diversion colostomy: That was complicated by perforation of the cecum, status post laparoscopic ileocecectomy and primary stenosis. General surgery on the case. Patient has been tolerating diet. #8 elevated LFT: Likely due to severe sepsis. No right upper quadrant tenderness. #9 hypernatremia/hypokalemia: Both serum sodium and potassium normalized and remained stable. #10 type 2 diabetes mellitus: Blood sugar has been stable. He is on sliding scale only. Metformin held. #11 seizure disorder: Stable, continue p.o. valproic acid. #12 hypertension: Blood pressure is maintained at this time, continue metoprolol. #13 CAD status post CABG: Stable, no acute issues. Continue aspirin, statins, beta-blockers. #14 paroxysmal atrial fibrillation: Heart rate has been in 90s, continue Cardizem and metoprolol for rate control. He is not on anticoagulation. #15 DVT prophylaxis: Subcu Lovenox. This note was generated with BetterDoctor[employer] software. It may contain incorrect words, spelling, and punctuation that were not noted in checking the note before signing. Inpatient E&M: [id number] [facility] L3
--- NOTE | 2019-08-30 09:11 | PN.SURG_ITS ---
Patient Problems: Active and Suspected Problems (Last Updated 08/25/19 @ 08:[address] Samina Heredia MD) Cecum perforation (Acute) Severe sepsis (Acute) Sacral wound (Acute) UTI (urinary tract infection) (Acute) Subjective: Patient awakes without difficulty. Essentially noncommunicative. Having good output from stoma. Objective: Stoma looks viable this morning. Complains of abdominal tenderness by moaning however he has no rebound guarding or peritoneal signs identified. - Physical Exam Vitals/I&O's: Vital Signs Temp Pulse Resp BP Pulse Ox 98.3 F 105 H 20 H 123/72 H 96 08/30/19 05:58 08/30/19 06:51 08/30/19 05:58 08/30/19 05:58 08/30/19 05:58 Oxygen Flow Rate (L/min) 2 Oxygen Delivery Method Room Air Weight: 281 lb 4.957 oz Body Mass Index (BMI) 43.0 Finger Stick Blood Glucose 191 Intake and Output for Last 24 Hours 08/28/19 08/29/19 08/30/19 23:59 23:59 23:59 Intake Total 4303.95 / 4303.95 3424.80 / 3424.80 581.25 / 581.25 Output Total 2925 / 2925 4300 / 4300 725 / 725 Balance 1378.95 / 1378.95 -875.20 / -875.20 -143.75 / -143.75 Microbiology Past 72 Hours 08/28/19 09:46 Blood Culture (Wb) - Left Hand Blood Culture - Preliminary No growth in 48 hours. 08/28/19 09:40 Blood Culture (Wb) - Other Blood Culture - Preliminary No growth in 48 hours. 08/25/19 Unknown Blood Culture (Wb) - Arm Right Blood Culture - Preliminary Yeast Like Organism Laboratory Results 08/29/19 06:45: Diff Path Review Reviewed 08/29/19 13:51: POC Glucose 129 H 08/29/19 17:05: POC Glucose 152 H 08/30/19 00:48: POC Glucose 103 08/30/19 05:56: WBC 13.8 H, RBC 2.71 L, Hgb 7.9 L, Hct 27.7 L, MCV 102.2 H D, MCH 29.2, MCHC 28.5 L D, RDW Std Deviation 61.8 H, RDW Coeff of Tio 17.1 H, Plt Count 230, MPV 10.7, Immature Gran % (Auto) 1.900 H, Neut % (Auto) 70.3 H, Lymph % (Auto) 15.7 L, Hand % (Auto) 11.4 H, Eos % (Auto) 0.3, Baso % (Auto) 0.4, Absolute Neuts (auto) 9.7 H, Absolute Lymphs (auto) 2.16, Nucleated RBC % 0.6, Differential Comment COMMENT, Diff Path Review May foll, Platelet Estimate ADEQUATE, Hypochromasia 1+, Anisocytosis 1+, Macrocytosis 1+ 08/30/19 05:56: Sodium 142, Potassium 3.9, Chloride 111 H, Carbon Dioxide 23.0, Anion Gap 8, BUN 26 H, Creatinine 0.84, Estim Creat Clear Calc 95.86, Est GFR (MDRD) Af Amer 121, Est GFR (MDRD) Non-Af 100, BUN/Creatinine Ratio 31.1 H, Glucose 102, Calcium 8.0 L, Total Bilirubin 1.50 H, AST 343 H, ALT 174 H, Alkaline Phosphatase 401 H, Total Protein 7.6, Albumin 1.2 L, Globulin 6.4 H, Albumin/Globulin Ratio 0.2 L 08/30/19 06:18: POC Glucose 98 Current Medications Acetaminophen (Tylenol Liquid) 650 mg PO Q6H PRN PRN PRN Reason: Pain Score 1-10/10 Last Admin: 08/30/19 03:45 Dose: 650 mg Documented by: Aspirin (Aspirin, Baby) 81 mg PO DAILYCM [facility] Last Admin: 08/29/19 11:52 Dose: 81 mg Documented by: Atorvastatin Calcium (Lipitor) 80 mg PO QHS [facility] Last Admin: 08/29/19 22:04 Dose: 80 mg Documented by: Calamine/Phenol (Calmoseptine Ointment) 1 applic TOPICAL TID [facility]; Protocol Last Admin: 08/30/19 07:03 Dose: 1 applicatio Documented by: Dextrose (D50w Syringe) 0 gm IV X1 PRN; Protocol PRN Reason: Hypoglycemia Diazepam (Valium) 5 mg PO Q6H PRN PRN PRN Reason: SPASMS Diltiazem HCl (Cardizem) 60 mg PO Q8 [facility] Last Admin: 08/30/19 06:08 Dose: 60 mg Documented by: Enoxaparin Sodium (Lovenox) 40 mg SC DAILY [facility] Last Admin: 08/29/19 11:53 Dose: 40 mg Documented by: Famotidine (Pepcid) 20 mg PO DAILY [facility] Last Admin: 08/29/19 11:52 Dose: 20 mg Documented by: Fenofibrate (Tricor) 145 mg PO DAILY [facility] Last Admin: 08/29/19 11:52 Dose: 145 mg Documented by: Folic Acid (Folic Acid) 1 mg PO DAILYCM [facility] Last Admin: 08/29/19 11:52 Dose: 1 mg Documented by: Glucagon () 1 mg IM .X1 PRN PRN Reason: Hypoglycemia Meropenem 1 gm/ Sodium (Chloride) 120 mls @ 33 mls/hr IV Q8 [facility] Last Admin: 08/30/19 06:07 Dose: 33 mls/hr Documented by: Sodium Chloride () 250 mls @ 15 mls/hr IV .[id number] PRN PRN Reason: Saline Flush Last Infusion: 08/23/19 11:24 Dose: Infused Documented by: Sodium Chloride () 250 mls @ 15 mls/hr IV .[id number] PRN PRN Reason: Additional IVPB Infusion Eravacycline 125 mg/ Sodium (Chloride) 262.5 mls @ 262.5 mls/hr IV Q12 [facility] Last Infusion: 08/29/19 22:56 Dose: Infused Documented by: Daptomycin 1,000 mg/ Sodium (Chloride) 70 mls @ 140 mls/hr IV Q24 [facility] Last Infusion: 08/29/19 12:46 Dose: Infused Documented by: Dextrose () 1,000 mls @ 75 mls/hr IV .[id number] [facility] Last Admin: 08/30/19 06:05 Dose: 75 mls/hr Documented by: Micafungin Sodium 100 mg/ (Dextrose) 105 mls @ 100 mls/hr IV Q24 [facility] Last Infusion: 08/29/19 12:49 Dose: Infused Documented by: Insulin Human Lispro (Humalog Kwikpen (Bkc)) 0 unit SC Q6H [facility]; Protocol Last Admin: 08/30/19 06:19 Dose: Not Given Documented by: Lactobacillus Acidophilus (Acidophilus) 2 tablet PO DAILY [facility] Last Admin: 08/29/19 11:52 Dose: 2 tablet Documented by: Metoprolol Tartrate (Lopressor (Beta Dana)) 100 mg PO BID [facility] Last Admin: 08/29/19 22:04 Dose: 100 mg Documented by: Morphine Sulfate () 1 mg IV Q3H PRN PRN PRN Reason: Pain Score 6-10/10 Last Admin: 08/30/19 06:55 Dose: 1 mg Documented by: Nutritional Formula (Mike - [place] Flavor) 1 packet PO BID [facility] Last Admin: 08/29/19 22:24 Dose: 1 packet Documented by: Nutritional Formula (Lactose Free) (Ensure Enlive) 120 ml PO 4X/DAY [facility] Last Admin: 08/29/19 21:15 Dose: Not Given Documented by: Nystatin (Mycostatin Powder) 1 applic TOPICAL BID [facility]; Protocol Last Admin: 08/30/19 02:51 Dose: 1 applicatio Documented by: Pantoprazole Sodium (Protonix) 40 mg PO DAILY [facility] Potassium Chloride (Potassium Chl Soln) [facility] Last Admin: 08/29/19 16:53 Dose: 20 meq Documented by: Promethazine HCl (Phenergan Tablet) 25 mg PO Q4H PRN PRN PRN Reason: NAUSEA/VOMITING Sodium Chloride () 10 - 40 ml IV UD PRN PRN Reason: SALINE FLUSH Last Admin: 08/30/19 06:55 Dose: 20 ml Documented by: Sodium Hypochlorite (Dakins Solution 0.25% (1/2 Strength)) 1 applic TOPICAL BID [facility]; Protocol Last Admin: 08/30/19 02:51 Dose: 1 applicatio Documented by: Valproic Acid (Depakene) 750 mg PO TID [facility] Last Admin: 08/30/19 06:12 Dose: 750 mg Documented by: Medical Necessity - Tobacco Use Smoking Status: Current every day smoker Assessment/Plan All Active Problems (Last Updated 08/25/19 @ 08:[address] Samina Heredia MD) Cecum perforation (Acute) Multiple drug resistant Acinetobacter infection (Acute) Methicillin resistant Staphylococcus aureus infection (Acute) Severe sepsis (Acute) Sacral wound (Acute) UTI (urinary tract infection) (Acute) Do not believe the patient needs any revision of his stoma today. Continue to increase p.o. intake.
[2019-08-30] MEDS: Folic Acid 1 MG Tablet PO (09:31)
[2019-08-30] MEDS: Metoprolol Tartrate 100 MG Tablet PO ×2 (09:31→21:17)
[2019-08-30] MEDS: Aspirin 81 MG TAB.CHEW PO (09:32)
[2019-08-30] MEDS: Fenofibrate 145 MG Tablet PO (09:32)
[2019-08-30] MEDS: Pantoprazole Sodium 40 MG Tablet PO (09:32)
[2019-08-30] MEDS: Famotidine 20 MG Tablet PO (09:33)
[2019-08-30] MEDS: Enoxaparin 40 MG/0.4 ML Syringe SC (09:33)
[2019-08-30 12:15] LABS: Bedside Glucose 124 mg/dL (70-110)
[2019-08-30 17:51] LABS: Bedside Glucose 105 mg/dL (70-110)
[2019-08-30] MEDS: Atorvastatin Calcium 80 MG Tablet PO (21:18)
[2019-08-30 23:50] LABS: Bedside Glucose 108 mg/dL (70-110)
[2019-08-31] VITALS (13 sets, daily range): BP systolic 119–145; BP diastolic 62–78; PULSE 93–115; RESP 20–24; TEMP 36.4–38.4; O2SAT 92–97
[2019-08-31] MEDS: dilTIAZem 30 MG Tablet 60 MG PO ×3 (05:12→22:13)
[2019-08-31] MEDS: Valproic Acid 250 MG/5 ML UDC 750 MG PO ×3 (05:12→22:12)
[2019-08-31] MEDS: Menthol/Lanolin/Calamine/Znox 113 GM Tube 1 APPLIC TOPICAL ×3 (05:20→21:43)
[2019-08-31 06:11] LABS: Bedside Glucose 106 mg/dL (70-110)
--- NOTE | 2019-08-31 08:07 | PCM.PROGNOTE ---
Patient Problems: Active and Suspected Problems (Last Updated 08/25/19 @ 08:[address] Samina Heredia MD) Cecum perforation (Acute) Severe sepsis (Acute) Sacral wound (Acute) UTI (urinary tract infection) (Acute) Subjective: Chief complaint: Follow-up after admission for severe sepsis secondary to stage IV infected sacral decubitus ulcer/osteomyelitis status post excision with partial ostectomy for osteomyelitis complicated by bacteremia and candidemia, patient underwent diversion end colostomy that was complicated by perforation of the cecum status post laparoscopic ileocecectomy with primary anastomosis. Patient seen and examined. No acute events overnight. Apart from minimal abdominal discomfort, denied any abdominal pain, denied nausea or vomiting. No chest pain or shortness of breath. His vital signs are stable. - Physical Exam Vitals/I&O's: Vital Signs Temp Pulse Resp BP Pulse Ox 98.1 F 94 20 H 124/63 H 96 08/31/19 05:05 08/31/19 06:59 08/31/19 05:05 08/31/19 05:05 08/31/19 05:05 Oxygen Flow Rate (L/min) 2 Oxygen Delivery Method Room Air Weight: 275 lb 12.772 oz Body Mass Index (BMI) 43.0 Finger Stick Blood Glucose 191 Intake and Output for Last 24 Hours 08/29/19 08/30/19 08/31/19 23:59 23:59 23:59 Intake Total 3424.80 / 3424.80 3574.00 / 3574.00 333.75 / 333.75 Output Total 4300 / 4300 5775 / 5775 500 / 500 Balance -875.20 / -875.20 -2201.00 / -2201.00 -166.25 / -166.25 General: Alert, Cooperative, No apparent distress, Disoriented HEENT: Atraumatic, PERRLA, EOMI, Normocephalic Oral: Moist Mucosa, No Gingival or Mucosal Lesions/ Ulcerations Neck: Supple, No JVD, Negative Carotid Bruits, Trachea Midline, Thyroid Normal Size and Texture Lungs: Clear to auscultation, No rhonchi, No wheeze, No rales, Diminished, - - Diminished breath sounds bilateral, otherwise clear. Cardiovascular: Regular rate, Regular Rhythm, Normal S1, Normal S2, PMI Normal Abdomen: Bowel Sounds Present, Soft, Non-Distended, No Hepato-splenomegaly, Tender - Minimal tenderness on deep palpation. Midline incision is clean and dry, colostomy bag in place. Extremities: No clubbing, No cyanosis, Edema Skin: No rashes, No breakdown Lymphatic: No Cervical, Supraclavicular, or Inguinal Adenopathy Neurological: Cranial nerves II-XII grossly intact, Neuro grossly intact Psych/Mental Status: Flat Affect Microbiology Past 72 Hours 08/29/19 17:20 Other - Pic Miscellaneous Culture - Preliminary No growth-Final to follow 08/29/19 17:20 Other - Pic Gram Stain - Final 08/25/19 Unknown Blood Culture (Wb) - Arm Right Blood Culture - Preliminary Yeast Like Organism 08/28/19 09:46 Blood Culture (Wb) - Left Hand Blood Culture - Preliminary No growth in 48 hours. 08/28/19 09:40 Blood Culture (Wb) - Other Blood Culture - Preliminary No growth in 48 hours. Laboratory Results 08/30/19 12:11: POC Glucose 124 H 08/30/19 17:25: POC Glucose 105 08/30/19 23:46: POC Glucose 108 08/31/19 06:04: POC Glucose 106 Current Medications Acetaminophen (Tylenol Liquid) 650 mg PO Q6H PRN PRN PRN Reason: Pain Score 1-10/10 Last Admin: 08/30/19 03:45 Dose: 650 mg Documented by: [facility]ir[facility], [facility]) [facility] Last Admin: 08/30/19 09:32 Dose: 81 mg Documented by: Atorvastatin Calcium (Lipitor) 80 mg PO QHS [facility] Last Admin: 08/30/19 21:18 Dose: 80 mg Documented by: Calamine/Phenol (Calmoseptine Ointment) 1 applic TOPICAL TID [facility]; Protocol Last Admin: 08/31/19 05:20 Dose: 1 applicatio Documented by: Dextrose (D50w Syringe) 0 gm IV X1 PRN; Protocol PRN Reason: Hypoglycemia Diazepam (Valium) 5 mg PO Q6H PRN PRN PRN Reason: SPASMS Diltiazem HCl (Cardizem) 60 mg PO Q8 [facility] Last Admin: 08/31/19 05:12 Dose: 60 mg Documented by: Enoxaparin Sodium (Lovenox) 40 mg SC DAILY [facility] Last Admin: 08/30/19 09:33 Dose: 40 mg Documented by: Famotidine (Pepcid) 20 mg PO DAILY [facility] Last Admin: 08/30/19 09:33 Dose: 20 mg Documented by: Fenofibrate (Tricor) 145 mg PO DAILY [facility] Last Admin: 08/30/19 09:32 Dose: 145 mg Documented by: Folic Acid (Folic Acid) 1 mg PO DAILYCM [facility] Last Admin: 08/30/19 09:31 Dose: 1 mg Documented by: Glucagon () 1 mg IM .X1 PRN PRN Reason: Hypoglycemia Meropenem 1 gm/ Sodium (Chloride) 120 mls @ 33 mls/hr IV Q8 [facility] Last Admin: 08/31/19 05:11 Dose: 33 mls/hr Documented by: Sodium Chloride () 250 mls @ 15 mls/hr IV .[id number] PRN PRN Reason: Saline Flush Last Infusion: 08/31/19 05:11 Dose: 0 mls/hr Documented by: Sodium Chloride () 250 mls @ 15 mls/hr IV .[id number] PRN PRN Reason: Additional IVPB Infusion Eravacycline 125 mg/ Sodium (Chloride) 262.5 mls @ 262.5 mls/hr IV Q12 [facility] Last Infusion: 08/30/19 22:56 Dose: Infused Documented by: Daptomycin 1,000 mg/ Sodium (Chloride) 70 mls @ 140 mls/hr IV Q24 [facility] Last Infusion: 08/30/19 12:15 Dose: Infused Documented by: Dextrose () 1,000 mls @ 75 mls/hr IV .[id number] [facility] Last Admin: 08/30/19 19:03 Dose: 75 mls/hr Documented by: Micafungin Sodium 100 mg/ (Dextrose) 105 mls @ 100 mls/hr IV Q24 [facility] Last Infusion: 08/30/19 14:27 Dose: Infused Documented by: Insulin Human Lispro (Humalog Kwikpen (Bkc)) 0 unit SC Q6H [facility]; Protocol Last Admin: 08/31/19 06:15 Dose: Not Given Documented by: Lactobacillus Acidophilus (Acidophilus) 2 tablet PO DAILY [facility] Last Admin: 08/30/19 09:32 Dose: 2 tablet Documented by: Metoprolol Tartrate (Lopressor (Beta Dana)) 100 mg PO BID [facility] Last Admin: 08/30/19 21:17 Dose: 100 mg Documented by: Morphine Sulfate () 1 mg IV Q3H PRN PRN PRN Reason: Pain Score 6-10/10 Last Admin: 08/30/19 06:55 Dose: 1 mg Documented by: Nutritional Formula (Mike - [place] Flavor) 1 packet PO BID [facility] Last Admin: 08/30/19 21:17 Dose: 1 packet Documented by: Nutritional Formula (Lactose Free) (Ensure Enlive) 120 ml PO 4X/DAY [facility] Last Admin: 08/30/19 21:17 Dose: 120 ml Documented by: Nystatin (Mycostatin Powder) 1 applic TOPICAL BID [facility]; Protocol Last Admin: 08/30/19 21:19 Dose: 1 applicatio Documented by: Pantoprazole Sodium (Protonix) 40 mg PO DAILY [facility] Last Admin: 08/30/19 09:32 Dose: 40 mg Documented by: Potassium Chloride (Potassium Chl Soln) 20 meq PO BIDCM [facility] Last Admin: 08/30/19 17:29 Dose: 20 meq Documented by: Promethazine HCl (Phenergan Tablet) 25 mg PO Q4H PRN PRN PRN Reason: NAUSEA/VOMITING Sodium Chloride () 10 - 40 ml IV UD PRN PRN Reason: SALINE FLUSH Last Admin: 08/30/19 06:55 Dose: 20 ml Documented by: Sodium Hypochlorite (Dakins Solution 0.25% (1/2 Strength)) 1 applic TOPICAL BID [facility]; Protocol Last Admin: 08/30/19 21:18 Dose: 1 applicatio Documented by: Valproic Acid (Depakene) 750 mg PO TID [facility] Last Admin: 08/31/19 05:12 Dose: 750 mg Documented by: Medical Necessity - Tobacco Use Smoking Status: Current every day smoker Assessment/Plan All Active Problems (Last Updated 08/25/19 @ 08:[address] Samina Heredia MD) Cecum perforation (Acute) Multiple drug resistant Acinetobacter infection (Acute) Methicillin resistant Staphylococcus aureus infection (Acute) Severe sepsis (Acute) Sacral wound (Acute) UTI (urinary tract infection) (Acute) This is a 59 years old male patient presented to the emergency room from the skilled nursing because of change in mental status, found to have severe sepsis secondary to stage IV infected sacral decubitus ulcer, underwent excision with partial ostectomy for osteomyelitis complicated by bacteremia and candidemia, underwent diverting colostomy which was complicated by perforation of the cecum status post laparoscopic ileocecectomy with primary anastomosis. #1 severe sepsis: Attributed to infected sacral stage IV decubitus ulcer/osteomyelitis, acute complicated cystitis, bacteremia and candidemia. Remained on IV daptomycin, Eravacycline and meropenem. He is on IV micafungin for candidemia. Overnight, he was afebrile, WBC is trending down. Blood, wound and urine culture reviewed as below. Infectious disease on the case. Plan: Continue same treatment. #2 polymicrobial infected stage IV sacral decubitus ulcer/osteomyelitis: Status post excision and partial ostectomy for osteomyelitis, postoperative day 12. Patient remains on IV antibiotics as mentioned above. Wound culture revealed E. coli, Proteus mirabilis, Providencia stuartii and MRSA as well as vancomycin resistant Enterococcus faecium. Infectious disease on the case. He has been afebrile overnight, plan as above. #3 Enterobacter cloacae/staph epidermidis bacteremia: He is on IV daptomycin, meropenem and ERAVACYCLINE. Repeat blood culture revealed yeastlike organism, he is on IV micafungin. Repeat blood culture from August 28, 2019 showed no growth in 48 hours. Another repeat blood culture again done and it is pending. Infectious disease on the case, plan as above. #4 candidemia: He is on IV micafungin. He has been afebrile overnight, WBC is trending down. PICC line was removed. Repeat blood cultures pending. Plan to continue same treatment. #5 acute complicated cystitis: In the setting of chronic indwelling Chakraborty catheter. Patient was on IV antibiotics and antifungal. Culture revealed presumptive Lilliam albicans. #6 acute metabolic encephalopathy: Attributed to severe sepsis. Patient has been becoming more interactive, more alert, remains confused and disoriented. #7 status post diversion colostomy: That was complicated by perforation of the cecum, status post laparoscopic ileocecectomy and primary stenosis. General surgery on the case. Patient has been tolerating diet. #8 elevated LFT: Likely due to severe sepsis. No right upper quadrant tenderness. #9 hypernatremia/hypokalemia: Both serum sodium and potassium normalized and remained stable. #10 type 2 diabetes mellitus: Blood sugar has been stable. He is on sliding scale only. Metformin held. #11 seizure disorder: Stable, continue p.o. valproic acid. #12 hypertension: Blood pressure is maintained at this time, continue metoprolol. #13 CAD status post CABG: Stable, no acute issues. Continue aspirin, statins, beta-blockers. #14 paroxysmal atrial fibrillation: Heart rate has been in 90s, continue Cardizem and metoprolol for rate control. He is not on anticoagulation. #15 DVT prophylaxis: Subcu Lovenox. This note was generated with [employer] dictation software. It may contain incorrect words, spelling, and punctuation that were not noted in checking the note before signing. Inpatient E&M: 43074 Subs Hosp L2
[2019-08-31] MEDS: Pantoprazole Sodium 40 MG Tablet PO (08:31)
[2019-08-31] MEDS: Famotidine 20 MG Tablet PO (08:31)
[2019-08-31] MEDS: Metoprolol Tartrate 100 MG Tablet PO ×2 (08:31→22:13)
[2019-08-31] MEDS: Fenofibrate 145 MG Tablet PO (08:33)
[2019-08-31] MEDS: Aspirin 81 MG TAB.CHEW PO (08:33)
[2019-08-31] MEDS: Folic Acid 1 MG Tablet PO (08:33)
[2019-08-31] MEDS: Enoxaparin 40 MG/0.4 ML Syringe SC (08:39)
[2019-08-31] MEDS: Nystatin Powder 15gm Bottle 1 APPLIC TOPICAL ×2 (08:41→21:42)
--- NOTE | 2019-08-31 11:17 | PCM.PN.SRG ---
Patient Problems: Active and Suspected Problems (Last Updated 08/25/19 @ 08:[address] Samina Heredia MD) Cecum perforation (Acute) Severe sepsis (Acute) Sacral wound (Acute) UTI (urinary tract infection) (Acute) Subjective: Patient seems quite a bit more awake today. Not really communicative for me. Objective: No real change in the stoma. Significant output from stoma. Do not think I need to do anything to this today. - Physical Exam Vitals/I&O's: Vital Signs Temp Pulse Resp BP Pulse Ox 98.1 F 101 H 20 H 124/63 H 96 08/31/19 05:05 08/31/19 08:31 08/31/19 05:05 08/31/19 05:05 08/31/19 05:05 Oxygen Flow Rate (L/min) 2 Oxygen Delivery Method Room Air Weight: 275 lb 12.772 oz Body Mass Index (BMI) 43.0 Finger Stick Blood Glucose 191 Intake and Output for Last 24 Hours 08/29/19 08/30/19 08/31/19 23:59 23:59 23:59 Intake Total 3424.80 / 3424.80 3574.00 / 3574.00 1453.75 / 1453.75 Output Total 4300 / 4300 5775 / 5775 500 / 500 Balance -875.20 / -875.20 -2201.00 / -2201.00 953.75 / 953.75 Microbiology Past 72 Hours 08/29/19 17:20 Other - Pic Miscellaneous Culture - Preliminary No growth-Final to follow 08/29/19 17:20 Other - Pic Gram Stain - Final 08/25/19 Unknown Blood Culture (Wb) - Arm Right Blood Culture - Preliminary Yeast Like Organism 08/28/19 09:46 Blood Culture (Wb) - Left Hand Blood Culture - Preliminary No growth in 48 hours. 08/28/19 09:40 Blood Culture (Wb) - Other Blood Culture - Preliminary No growth in 48 hours. Laboratory Results 08/30/19 12:11: POC Glucose 124 H 08/30/19 17:25: POC Glucose 105 08/30/19 23:46: POC Glucose 108 08/31/19 06:04: POC Glucose 106 Current Medications Acetaminophen (Tylenol Liquid) 650 mg PO Q6H PRN PRN PRN Reason: Pain Score 1-10/10 Last Admin: 08/30/19 03:45 Dose: 650 mg Documented by: Aspirin (Aspirin, Baby) 81 mg PO DAILYCM [facility] Last Admin: 08/31/19 08:33 Dose: 81 mg Documented by: Atorvastatin Calcium (Lipitor) 80 mg PO QHS [facility] Last Admin: 08/30/19 21:18 Dose: 80 mg Documented by: Calamine/Phenol (Calmoseptine Ointment) 1 applic TOPICAL TID [facility]; Protocol Last Admin: 08/31/19 05:20 Dose: 1 applicatio Documented by: Dextrose (D50w Syringe) 0 gm IV X1 PRN; Protocol PRN Reason: Hypoglycemia Diazepam (Valium) 5 mg PO Q6H PRN PRN PRN Reason: SPASMS Diltiazem HCl (Cardizem) 60 mg PO Q8 [facility] Last Admin: 08/31/19 05:12 Dose: 60 mg Documented by: Enoxaparin Sodium (Lovenox) 40 mg SC DAILY [facility] Last Admin: 08/31/19 08:39 Dose: 40 mg Documented by: Famotidine (Pepcid) 20 mg PO DAILY [facility] Last Admin: 08/31/19 08:31 Dose: 20 mg Documented by: Fenofibrate (Tricor) 145 mg PO DAILY [facility] Last Admin: 08/31/19 08:33 Dose: 145 mg Documented by: Folic Acid (Folic Acid) 1 mg PO DAILYCM [facility] Last Admin: 08/31/19 08:33 Dose: 1 mg Documented by: Glucagon () 1 mg IM .X1 PRN PRN Reason: Hypoglycemia Meropenem 1 gm/ Sodium (Chloride) 120 mls @ 33 mls/hr IV Q8 [facility] Last Infusion: 08/31/19 10:04 Dose: Infused Documented by: Sodium Chloride () 250 mls @ 15 mls/hr IV .[id number] PRN PRN Reason: Saline Flush Last Infusion: 08/31/19 05:11 Dose: 0 mls/hr Documented by: Sodium Chloride () 250 mls @ 15 mls/hr IV .[id number] PRN PRN Reason: Additional IVPB Infusion Eravacycline 125 mg/ Sodium (Chloride) 262.5 mls @ 262.5 mls/hr IV Q12 [facility] Last Admin: 08/31/19 10:05 Dose: 262.5 mls/hr Documented by: Daptomycin 1,000 mg/ Sodium (Chloride) 70 mls @ 140 mls/hr IV Q24 [facility] Last Infusion: 08/30/19 12:15 Dose: Infused Documented by: Dextrose () 1,000 mls @ 75 mls/hr IV .[id number] [facility] Last Admin: 08/31/19 08:30 Dose: 75 mls/hr Documented by: Micafungin Sodium 100 mg/ (Dextrose) 105 mls @ 100 mls/hr IV Q24 [facility] Last Infusion: 08/30/19 14:27 Dose: Infused Documented by: Insulin Human Lispro (Humalog Kwikpen (Bkc)) 0 unit SC Q6H [facility]; Protocol Last Admin: 08/31/19 06:15 Dose: Not Given Documented by: Lactobacillus Acidophilus (Acidophilus) 2 tablet PO DAILY [facility] Last Admin: 08/31/19 08:31 Dose: 2 tablet Documented by: Metoprolol Tartrate (Lopressor (Beta Dana)) 100 mg PO BID [facility] Last Admin: 08/31/19 08:31 Dose: 100 mg Documented by: Morphine Sulfate () 1 mg IV Q3H PRN PRN PRN Reason: Pain Score 6-10/10 Last Admin: 08/30/19 06:55 Dose: 1 mg Documented by: Nutritional Formula (Mike - [place] Flavor) 1 packet PO BID [facility] Last Admin: 08/31/19 08:33 Dose: 1 packet Documented by: Nutritional Formula (Lactose Free) (Ensure Enlive) 120 ml PO 4X/DAY [facility] Last Admin: 08/31/19 08:38 Dose: Not Given Documented by: Nystatin (Mycostatin Powder) 1 applic TOPICAL BID [facility]; Protocol Last Admin: 08/31/19 08:41 Dose: 1 applicatio Documented by: Pantoprazole Sodium (Protonix) 40 mg PO DAILY [facility] Last Admin: 08/31/19 08:31 Dose: 40 mg Documented by: [facility]assium [facility] ([facility]) [facility] Last Admin: 08/31/19 08:33 Dose: 20 meq Documented by: Promethazine HCl (Phenergan Tablet) 25 mg PO Q4H PRN PRN PRN Reason: NAUSEA/VOMITING Sodium Chloride () 10 - 40 ml IV UD PRN PRN Reason: SALINE FLUSH Last Admin: 08/30/19 06:55 Dose: 20 ml Documented by: Sodium Hypochlorite (Dakins Solution 0.25% (1/2 Strength)) 1 applic TOPICAL BID [facility]; Protocol Last Admin: 08/30/19 21:18 Dose: 1 applicatio Documented by: Valproic Acid (Depakene) 750 mg PO TID [facility] Last Admin: 08/31/19 05:12 Dose: 750 mg Documented by: Medical Necessity - Tobacco Use Smoking Status: Current every day smoker Assessment/Plan All Active Problems (Last Updated 08/25/19 @ 08:[address] Samina Heredia MD) Cecum perforation (Acute) Multiple drug resistant Acinetobacter infection (Acute) Methicillin resistant Staphylococcus aureus infection (Acute) Severe sepsis (Acute) Sacral wound (Acute) UTI (urinary tract infection) (Acute) Continue with his current diet. No stomal revision today. Maintain strict I's and O's on the patient.
[2019-08-31] MEDS: DAKIN'S SOL HALF STRENGTH (=0.25%) 1 APPLIC TOPICAL ×2 (11:34→23:33)
[2019-08-31 11:45] LABS: Bedside Glucose 94 mg/dL (70-110)
[2019-08-31 17:45] LABS: Bedside Glucose 117 mg/dL (70-110)
[2019-08-31] MEDS: Acetaminophen 650 MG/20 ML UDC PO (22:08)
[2019-08-31] MEDS: Atorvastatin Calcium 80 MG Tablet PO (22:13)
--- NOTE | 2019-08-31 22:36 | RAD_ITS ---
STUDY: X-RAY - ABDOMEN/PELVIS REASON FOR EXAM: Male, 59 years old. ABDOMINAL WOUND DEHISCENCE -- INFECTED DECUBITUS ULCER TECHNIQUE: Frontal view COMPARISON: None. FINDINGS: Normal visualized lung bases. There is an unremarkable bowel gas pattern. There is no demonstrated free abdominal air. The visualized liver, spleen and kidneys are grossly normal in size and morphology. There is a RIGHT-sided ureteral stent which appears to be in proper position. Normal soft tissue structures. Normal visualized osseous structures. RAD/Abdomen Single View (Portable) IMPRESSION: RIGHT ureteral stent. There is NO acute bowel abnormality. Electronically Signed: Mariano Lauren MD at 0:59 EDT , Service support ,
[2019-08-31 23:33] LABS: Absolute Lymphocyte Count 2.44 X10^3/uL (0.83-4.51); Absolute Neutrophil Count 6.7 X10^3/uL (2.0-7.7); Basophil# 0.07 X10^3/uL; Basophil% 0.7 % (0-1); Eosinophil# 0.02 X10^3/uL; Eosinophils% 0.2 % (0-5); Hematocrit 33.9 % (40-54); Hemoglobin 9.6 g/dL (13.0-16.5); Lymphocyte # 2.44 X10^3/ul (4.0); Lymphocyte % 23.3 % (19-41); Mean Corp Hgb Conc 28.3 g/dL (32-36); Mean Corpuscular Hgb 28.8 pg (27.0-32.0); Mean Corpuscular Volume 101.8 fL (80-94); Mean Platelet Vol. 12.1 fl (6.2-12.0); Monocyte# 1.01 X10^3/uL; Monocyte% 9.6 % (0-10); Neutrophil # 6.66 X10^3/uL (2.7-7.7); Neutrophil % 63.5 % (47-70); POSITIVE COUNT YES; POSITIVE MORPHOLOGY YES; RBC Distribution Width CV 18.2 % (11.6-14.6); RBC Distribution Width SD 63.7 fl (35.1-43.9); Red Blood Count 3.33 M/mm3 (4.6-6.2); White Blood Count 10.5 K/mm3 (4.4-11.0)
[2019-08-31 23:39] LABS: Anion Gap 9 (5-15); BUN 24 mg/dL (7-18); Calcium,Total 8.4 mg/dL (8.5-10.1); Chloride 117 mmol/L (98-107); EST Glomerular Filtration Rate 82 mL/min (>60); Est Glom Filt Rate - Afr Amer 99 mL/min (>60); Estimated Creatinine Clearance 80.52 ml/min; Glucose 131 mg/dL (74-106); Potassium 4.5 mmol/L (3.5-5.1); Sodium Level 144 mmol/L (136-145)
[2019-08-31 23:40] LABS: Differential Indicated SCAN CRITERIA MET
--- NOTE | 2019-08-31 23:50 | RAD_ITS ---
STUDY: X-RAY CHEST REASON FOR EXAM: Male, 59 years old. SOB, SEPSIS, INFECTED DECUBITUS ULCER TECHNIQUE: Frontal view COMPARISON: None. FINDINGS: The lungs are clear and expanded. There is no demonstrated pleural abnormality. Normal size heart. Normal mediastinum and tony. Normal visualized pulmonary arteries. Normal visualized aortic arch and descending thoracic aorta. Normal visualized thoracic spine. Normal visualized ribs, clavicles, and shoulders. There is no demonstrated abnormality of the visualized soft tissue structures of the upper abdomen. RAD/Chest 1 View (Portable) IMPRESSION: Normal x-ray examination of the chest. Electronically Signed: Mariano Lauren MD at 1:04 EDT , Service support ,
[2019-08-31 23:54] LABS: Lactic Acid 5.3 mmol/L (0.4-1.9)
[2019-09-01] VITALS (36 sets, daily range): BP systolic 103–155; BP diastolic 41–89; PULSE 85–124; RESP 19–45; TEMP 38.1–39.6; O2SAT 92–98
[2019-09-01 00:05] LABS: Differential Comment SCANNED; Platelet Estimate ADEQUATE (ADEQ)
[2019-09-01 00:40] LABS: Bedside Glucose 130 mg/dL (70-110)
--- NOTE | 2019-09-01 01:33 | PCM.PN.BLA ---
Progress Note Notified by nurse that patient is requiring 6 L of oxygen. Chest x-ray and abdominal x-ray was ordered. Lactic acid 5.3. Fever of temperature 101.2. Patient was assessed at the bedside. Patient is alert Heart sounds S1, S2 PRESENT; tachycardia Lungs clear to auscultate LCTA; Tachypnea Abdomen with yellow feces in ostomy bag; wound on right side. midline incision with area of redness Decubitus ulcer Septic shock Because of congestive heart failure, can not give 30 mL's per kilogram bolus. Normal saline thousand 500 MS bolus. Patient with multiple blood cultures. Transfer to intensive care. Repeat lactic acid. STROKE Vital Signs/Narrative: Vital Signs Temp Pulse Resp BP Pulse Ox 09/01/19 01:00 100.8 F H 124 H 28 H 155/65 H 92 09/01/19 00:25 100.6 F H 104 H 26 H 127/75 H 94 08/31/19 23:15 99.0 F 115 H 24 H 145/72 H 94 08/31/19 22:13 110 H 132/78 H 08/31/19 22:00 101.2 F H 110 H 20 H 132/78 H 95
--- NOTE | 2019-09-01 01:39 | NURSING ---
Report called to Marci MOCTEZUMA in ICU. Patient is okay to be transferred to ICU Now.
[2019-09-01] MEDS: 0.9% Normal Saline 1,000 ML 999 ML IV ×2 (02:14→03:27)
[2019-09-01] MEDS: Morphine 2 MG/ML Syringe 1 MG IV (02:20)
--- NOTE | 2019-09-01 02:30 | NURSING ---
Called and updated Significant other/POA Martha that patient is now in ICU. She will call in am for updates.
[2019-09-01 03:17] LABS: Reflex Lactate? Y
[2019-09-01 03:45] LABS: Absolute Lymphocyte Count 1.71 X10^3/uL (0.83-4.51); Absolute Neutrophil Count 10.1 X10^3/uL (2.0-7.7); Basophil# 0.03 X10^3/uL; Basophil% 0.2 % (0-1); Eosinophil# 0.01 X10^3/uL; Eosinophils% 0.1 % (0-5); Hematocrit 24.6 % (40-54); Hemoglobin 7.2 g/dL (13.0-16.5); Lymphocyte # 1.71 X10^3/ul (4.0); Lymphocyte % 12.7 % (19-41); Mean Corp Hgb Conc 29.3 g/dL (32-36); Mean Corpuscular Hgb 28.6 pg (27.0-32.0); Mean Corpuscular Volume 97.6 fL (80-94); Mean Platelet Vol. 10.6 fl (6.2-12.0); Monocyte# 1.35 X10^3/uL; NRBC Flagged by Analyzer 0.7 % (0-5); Neutrophil # 10.12 X10^3/uL (2.7-7.7); Neutrophil % 75.1 % (47-70); POSITIVE MORPHOLOGY YES; Platelet Count 318 K/mm3 (150-450); RBC Distribution Width CV 17.5 % (11.6-14.6); RBC Distribution Width SD 58.9 fl (35.1-43.9); Red Blood Count 2.52 M/mm3 (4.6-6.2); White Blood Count 13.5 K/mm3 (4.4-11.0)
[2019-09-01 03:49] LABS: Differential Indicated SCAN CRITERIA MET
[2019-09-01 04:03] LABS: Lactic Acid 4.5 mmol/L (0.4-1.9)
[2019-09-01 04:07] LABS: Differential Comment SCANNED; Reactive Lymphocyte 1+
[2019-09-01] MEDS: Acetaminophen 650 MG/20 ML UDC PO ×3 (04:28→17:56)
--- NOTE | 2019-09-01 05:04 | CT_ITS ---
STUDY: CT ABDOMEN AND PELVIS WITH CONTRAST REASON FOR EXAM: Male, 59 years old. SEPTIC SHOCK,5.3 LACTIC ACID, FEVER, DIAB, PACER, YELLOW FECES IN OSTOMY BAG, COLOSTOMY, PRIOR COLON LEAK, CABG, PACER, CHF, HTN RADIATION DOSAGE (If Supplied By Facility): CTDIvol = ( 22.86 ) mGy, DLP = ( 1944.85 ) mGycm TECHNIQUE: Transaxial images were obtained from the dome of the diaphragm to the symphysis pubis without oral contrast. IV 100mL Isovue-370 was administered. Sagittal and coronal images were reconstructed. Individualized dose optimization techniques were used for this CT. COMPARISON: None. FINDINGS: There bilateral lower lobe pulmonary infiltrates. The visualized portions of the heart are within normal limits. Liver is enlarged and fatty. Gallbladder is contracted. Normal spleen. Normal pancreas. Normal bilateral adrenal glands. There is a RIGHT ureteral stent in proper position. There is NO hydronephrosis. There bilateral kidney cysts. Normal visualized stomach. Normal small intestine. There has been a LEFT hemicolectomy. There is a LEFT lower quadrant colostomy. There is non-visualization of the appendix. There is diffuse atherosclerotic calcification of the abdominal aorta, without a demonstrated aneurysm. Normal inferior vena cava. Normal retroperitoneum. Urinary bladder wall is thickened. There is a ARREGUIN catheter. The balloon portion is inflated in the prostatic urethra. There is NO ascites or free air, abscess or adenopathy. Normal abdominal wall. Normal osseous structures. CT/Abdomen/Pelvis W IV Cont ONLY IMPRESSION: There bilateral lower lobe pulmonary infiltrates. Liver is enlarged and fatty. There is a RIGHT ureteral stent in proper position. There is NO hydronephrosis. There bilateral kidney cysts. There has been a LEFT hemicolectomy. There is a LEFT lower quadrant colostomy. Urinary bladder wall is thickened. There is a ARREGUIN catheter. The balloon portion is inflated in the prostatic urethra. There is NO ascites or free air, abscess or adenopathy. Electronically Signed: Mariano Lauren MD at 6:30 EDT , Service support ,
[2019-09-01] MEDS: Menthol/Lanolin/Calamine/Znox 113 GM Tube 1 APPLIC TOPICAL ×3 (06:26→22:23)
[2019-09-01] MEDS: Valproic Acid 250 MG/5 ML UDC 750 MG PO ×3 (06:27→22:40)
[2019-09-01] MEDS: dilTIAZem 30 MG Tablet 60 MG PO ×3 (06:27→22:41)
[2019-09-01 07:35] LABS: Bedside Glucose 97 mg/dL (70-110)
[2019-09-01 08:00] LABS: Mucous, Urine 0 SEEN /hpf (<or=2+)
[2019-09-01 08:03] LABS: Color, Urine Yellow (Yellow); Glucose, Dipstick Normal (Normal); Ketone-Dipstick 5 mg/dl (Negative); Leukocyte Esterase-Dipstick 500 /ul (Negative); Nitrite-Dipstick Negative (Negative); Occult Blood-Urine 150 /ul (Negative); Protein-Dipstick 30 mg/dl (Negative); Urine Bilirubin Dipstick Negative (Negative); Urine Clarity Sl. Cloudy (Clear); Urine Urobilinogen Normal (Normal)
[2019-09-01 08:18] LABS: Bacteria 1+ /hpf (None Seen); Red Blood Cells-Urine 10-25 SEEN /hpf (0-5); Squamous Epithelial Cells - UA 0-5 SEEN /hpf (0-5); White Blood Cells 25-50 SEEN /hpf (0-5); Yeast-Urine 2+ /hpf (None Seen)
[2019-09-01] MEDS: 0.9% Saline Lock 10 ML Syringe IV ×4 (08:20→22:32)
[2019-09-01] MEDS: Folic Acid 1 MG Tablet PO (08:20)
[2019-09-01] MEDS: Fenofibrate 145 MG Tablet PO (08:21)
[2019-09-01] MEDS: Pantoprazole Sodium 40 MG Tablet PO (08:21)
[2019-09-01] MEDS: Aspirin 81 MG TAB.CHEW PO (08:21)
[2019-09-01] MEDS: Metoprolol Tartrate 100 MG Tablet PO ×2 (08:21→22:40)
[2019-09-01] MEDS: Famotidine 20 MG Tablet PO (08:21)
[2019-09-01 08:35] LABS: Hematocrit 22.7 % (40-54); Hemoglobin 6.7 g/dL (13.0-16.5); Mean Corp Hgb Conc 29.5 g/dL (32-36); Mean Corpuscular Hgb 28.9 pg (27.0-32.0); Mean Corpuscular Volume 97.8 fL (80-94); Mean Platelet Vol. 10.3 fl (6.2-12.0); POSITIVE DIFFERENTIAL YES; POSITIVE MORPHOLOGY YES; Platelet Count 299 K/mm3 (150-450); RBC Distribution Width CV 17.5 % (11.6-14.6); RBC Distribution Width SD 60.5 fl (35.1-43.9); Red Blood Count 2.32 M/mm3 (4.6-6.2); White Blood Count 16.2 K/mm3 (4.4-11.0)
[2019-09-01] MEDS: Enoxaparin 40 MG/0.4 ML Syringe SC (08:37)
[2019-09-01] MEDS: Nystatin Powder 15gm Bottle 1 APPLIC TOPICAL ×2 (08:38→22:24)
--- NOTE | 2019-09-01 08:51 | RAD_ITS ---
STUDY: X-RAY CHEST REASON FOR EXAM: Male, 59 years old. ACUTE RESPIRATORY INSUFFICIENCY TECHNIQUE: Single AP portable view of the chest. COMPARISON: Comparison is made with prior examination dated 08-31-19. FINDINGS: EKG electrodes are seen. The lungs are clear and expanded. There is no demonstrated pleural abnormality. Sternal cerclage wires are present from a prior sternotomy. Normal mediastinum and tony. Normal visualized pulmonary arteries. There is atherosclerotic tortuosity of the aortic arch and descending thoracic aorta. Normal visualized thoracic spine. Normal visualized ribs, clavicles, and shoulders. There is no demonstrated abnormality of the visualized soft tissue structures of the upper abdomen. RAD/Chest 1 View (Portable) IMPRESSION: No acute abnormalities seen. Stable examination. Electronically Signed: Erwin Lazo, at 13:31 EDT , Service support ,
--- NOTE | 2019-09-01 08:52 | PN_ITS ---
Subjective: The patient was seen and examined at the bedside this morning. Events from the last 24 hours have been reviewed. The patient was transferred back to the ICU early this morning over concerns for the development of septic shock. The patient was noted to have developed a fever with a T-max of 103.3 ?F. The patient's white count also increased and he appears to have become progressively anemic with a hemoglobin of 6.7 this morning. Lactate was elevated to 5.3. Total bili was increased to 1.3. Coronavirus PCR was negative. Chest x-ray failed to demonstrate findings concerning for an acute cardiopulmonary process. Objective: The patient's most recent lab work, culture data and imaging studies have all been personally reviewed. General: Alert, Cooperative, Confused, Disoriented HEENT: Atraumatic, Normocephalic Oral: No Gingival or Mucosal Lesions/ Ulcerations Neck: Supple, No Nodes, Trachea Midline Lungs: Diminished Cardiovascular: Normal S1, Normal S2, Tachycardic Abdomen: Bowel Sounds Present, Soft, Obese, - - +Ostomy Extremities: No clubbing, No cyanosis, Edema Skin: Ulcer/ Wound Musculoskeletal: No Tenderness to Palpation of Joints or Extremities Lymphatic: No Cervical, Supraclavicular, or Inguinal Adenopathy Neurological: - - No focal neurological deficits. Psych/Mental Status: Flat Affect Vital Signs Temp Pulse Resp BP Pulse Ox 101.6 F H 102 H 36 H 104/41 L 97 09/01/19 06:00 09/01/19 08:21 09/01/19 06:00 09/01/19 06:00 09/01/19 06:00 Oxygen Flow Rate (L/min) 4 Oxygen Delivery Method Nasal Cannula Weight: 286 lb 2.56 oz Body Mass Index (BMI) 43.0 Finger Stick Blood Glucose 191 Intake and Output for Last 24 Hours 08/30/19 08/31/19 09/01/19 23:59 23:59 23:59 Intake Total 3574.00 / 3574.00 4143.75 / 4143.75 2120 / 2120 Output Total 5775 / 5775 5550 / 5550 600 / 600 Balance -2201.00 / -2201.00 -1406.25 / -1406.25 1520 / 1520 Labs (Last 48 Hours) 08/28/19 08/30/19 08/30/19 10:55 12:11 17:25 WBC RBC Hgb Hct MCV MCH MCHC RDW Std Deviation RDW Coeff of Tio Plt Count MPV Immature Gran % (Auto) Neut % (Auto) Lymph % (Auto) [place] % (Auto) Eos % (Auto) Baso % (Auto) Absolute Neuts (auto) Absolute Lymphs (auto) Nucleated RBC % Differential Comment Reactive Lymphocytes Platelet Estimate Sodium Potassium Chloride Carbon Dioxide Anion Gap BUN Creatinine Estim Creat Clear Calc Est GFR (MDRD) Af Amer Est GFR (MDRD) Non-Af BUN/Creatinine Ratio Glucose Lactic Acid Calcium Urine Color Urine Clarity Urine pH Ur Specific [place] Urine Protein Urine Glucose (UA) Urine Ketones Urine Occult Blood Urine Nitrite Urine Bilirubin Urine Urobilinogen Ur Leukocyte Esterase Urine RBC Urine WBC Ur Squamous Epith Cells Urine Bacteria Urine Mucus Urine Yeast COVID-19 (ZHEN) POC Glucose 124 H 105 Crossmatch See Detail 08/30/19 08/31/19 08/31/19 23:46 06:04 11:35 WBC RBC Hgb Hct MCV MCH MCHC RDW Std Deviation RDW Coeff of Tio Plt Count MPV Immature Gran % (Auto) Neut % (Auto) Lymph % (Auto) [place] % (Auto) Eos % (Auto) Baso % (Auto) Absolute Neuts (auto) Absolute Lymphs (auto) Nucleated RBC % Differential Comment Reactive Lymphocytes Platelet Estimate Sodium Potassium Chloride Carbon Dioxide Anion Gap BUN Creatinine Estim Creat Clear Calc Est GFR (MDRD) Af Amer Est GFR (MDRD) Non-Af BUN/Creatinine Ratio Glucose Lactic Acid Calcium Urine Color Urine Clarity Urine pH Ur Specific [place] Urine Protein Urine Glucose (UA) Urine Ketones Urine Occult Blood Urine Nitrite Urine Bilirubin Urine Urobilinogen Ur Leukocyte Esterase Urine RBC Urine WBC Ur Squamous Epith Cells Urine Bacteria Urine Mucus Urine Yeast COVID-19 (ZHEN) POC Glucose 108 106 94 Crossmatch 08/31/19 08/31/19 08/31/19 17:14 23:05 23:05 WBC 10.5 RBC 3.33 L Hgb 9.6 L Hct 33.9 L MCV 101.8 H MCH 28.8 MCHC 28.3 L RDW Std Deviation 63.7 H RDW Coeff of Tio 18.2 H Plt Count [employer] MPV 12.1 H Immature Gran % (Auto) 2.700 H Neut % (Auto) 63.5 Lymph % (Auto) 23.3 [place] % (Auto) 9.6 Eos % (Auto) 0.2 Baso % (Auto) 0.7 Absolute Neuts (auto) 6.7 Absolute Lymphs (auto) 2.44 Nucleated RBC % 1.0 Differential Comment SCANNED Reactive Lymphocytes Platelet Estimate ADEQUATE Sodium Potassium Chloride Carbon Dioxide Anion Gap BUN Creatinine Estim Creat Clear Calc Est GFR (MDRD) Af Amer Est GFR (MDRD) Non-Af BUN/Creatinine Ratio Glucose Lactic Acid 5.3 H* Calcium Urine Color Urine Clarity Urine pH Ur Specific [place] Urine Protein Urine Glucose (UA) Urine Ketones Urine Occult Blood Urine Nitrite Urine Bilirubin Urine Urobilinogen Ur Leukocyte Esterase Urine RBC Urine WBC Ur Squamous Epith Cells Urine Bacteria Urine Mucus Urine Yeast COVID-19 (ZHEN) POC Glucose 117 H Crossmatch 08/31/19 08/31/19 09/01/19 23:05 23:28 03:20 WBC 13.5 H RBC 2.52 L Hgb 7.2 L Hct 24.6 L MCV 97.6 H MCH 28.6 MCHC 29.3 L RDW Std Deviation 58.9 H RDW Coeff of Tio 17.5 H Plt Count 318 MPV 10.6 Immature Gran % (Auto) 1.900 H Neut % (Auto) 75.1 H Lymph % (Auto) 12.7 L [place] % (Auto) 10.0 Eos % (Auto) 0.1 Baso % (Auto) 0.2 Absolute Neuts (auto) 10.1 H Absolute Lymphs (auto) 1.71 Nucleated RBC % 0.7 Differential Comment SCANNED Reactive Lymphocytes 1+ Platelet Estimate Sodium 144 Potassium 4.5 Chloride 117 H Carbon Dioxide 18.0 L Anion Gap 9 BUN 24 H Creatinine 1.00 Estim Creat Clear Calc 80.52 Est GFR (MDRD) Af Amer 99 Est GFR (MDRD) Non-Af 82 BUN/Creatinine Ratio 24.0 H Glucose 131 H Lactic Acid Calcium 8.4 L Urine Color Urine Clarity Urine pH Ur Specific [place] Urine Protein Urine Glucose (UA) Urine Ketones Urine Occult Blood Urine Nitrite Urine Bilirubin Urine Urobilinogen Ur Leukocyte Esterase Urine RBC Urine WBC Ur Squamous Epith Cells Urine Bacteria Urine Mucus Urine Yeast COVID-19 (ZHEN) POC Glucose 130 H Crossmatch 09/01/19 09/01/19 09/01/19 03:20 06:55 07:30 WBC RBC Hgb Hct MCV MCH MCHC RDW Std Deviation RDW Coeff of Tio Plt Count MPV Immature Gran % (Auto) Neut % (Auto) Lymph % (Auto) [place] % (Auto) Eos % (Auto) Baso % (Auto) Absolute Neuts (auto) Absolute Lymphs (auto) Nucleated RBC % Differential Comment Reactive Lymphocytes Platelet Estimate Sodium Potassium Chloride Carbon Dioxide Anion Gap BUN Creatinine Estim Creat Clear Calc Est GFR (MDRD) Af Amer Est GFR (MDRD) Non-Af BUN/Creatinine Ratio Glucose Lactic Acid 4.5 H* Calcium Urine Color Yellow Urine Clarity Sl. Cloudy Urine pH 5.0 Ur Specific [place] 1.010 Urine Protein 30 H Urine Glucose (UA) Normal Urine Ketones 5 H Urine Occult Blood 150 H Urine Nitrite Negative Urine Bilirubin Negative Urine Urobilinogen Normal Ur Leukocyte Esterase 500 H Urine RBC 10-25 SEEN Urine WBC 25-50 SEEN Ur Squamous Epith Cells 0-5 SEEN Urine Bacteria 1+ Urine Mucus 0 SEEN Urine Yeast 2+ COVID-19 (ZHEN) POC Glucose 97 Crossmatch 09/01/19 09/01/19 07:55 08:00 WBC 16.2 H RBC 2.32 L Hgb 6.7 L Hct 22.7 L MCV 97.8 H MCH 28.9 MCHC 29.5 L RDW Std Deviation 60.5 H RDW Coeff of Tio 17.5 H Plt Count 299 MPV 10.3 Immature Gran % (Auto) 1.600 H Neut % (Auto) 73.1 H Lymph % (Auto) 15.1 L [place] % (Auto) 9.8 Eos % (Auto) 0.2 Baso % (Auto) 0.2 Absolute Neuts (auto) 11.8 H Absolute Lymphs (auto) 2.44 Nucleated RBC % 0.2 Differential Comment Reactive Lymphocytes Platelet Estimate Sodium Potassium Chloride Carbon Dioxide Anion Gap BUN Creatinine Estim Creat Clear Calc Est GFR (MDRD) Af Amer Est GFR (MDRD) Non-Af BUN/Creatinine Ratio Glucose Lactic Acid Calcium Urine Color Urine Clarity Urine pH Ur Specific [place] Urine Protein Urine Glucose (UA) Urine Ketones Urine Occult Blood Urine Nitrite Urine Bilirubin Urine Urobilinogen Ur Leukocyte Esterase Urine RBC Urine WBC Ur Squamous Epith Cells Urine Bacteria Urine Mucus Urine Yeast COVID-19 (ZHEN) Pending POC Glucose Crossmatch Microbiology 08/30/19 05:56 Blood Culture (Wb) - Left Hand Blood Culture - Preliminary No growth in 48 hours. 08/31/19 10:45 Stool C. difficile DNA Amplification - Final 08/29/19 14:10 Blood Culture (Wb) - Left Hand Blood Culture - Preliminary No growth in 48 hours. 08/29/19 17:20 Other - Pic Miscellaneous Culture - Preliminary No growth-Final to follow 08/29/19 17:20 Other - Pic Gram Stain - Final 08/25/19 Unknown Blood Culture (Wb) - Arm Right Blood Culture - Preliminary Yeast Like Organism 08/28/19 09:46 Blood Culture (Wb) - Left Hand Blood Culture - Preliminary No growth in 48 hours. 08/28/19 09:40 Blood Culture (Wb) - Other Blood Culture - Preliminary No growth in 48 hours. Clinical Impression(s) from Imaging Studies Abdomen/Pelvis CT 08/18/19 11:37 IMPRESSION: Hepatomegaly and fatty infiltration of the liver. Right-sided double-J stent catheter with the proximal tip in the right mid pole calyces of the right kidney and the distal tip within the urinary bladder. Small cyst in the left kidney. Diffuse bladder wall thickening. The balloon of a Arreguin catheter is seen within the prostatic urethra. Stable large soft tissue defect overlying the sacrum. Electronically Signed: Erwin Lazo, at 13:14 EDT , Service support , Chest X-Ray 08/18/19 12:40 IMPRESSION: Status post CABG. Cardiomegaly. Electronically Signed: Erwin Lazo, at 13:09 EDT , Service support , KUB X-Ray 08/20/19 14:01 IMPRESSION: The tip of the nasogastric tube is in the distal portion of the body of the stomach. Electronically Signed: Erwin Lazo, at 14:45 EDT , Service support , Abdomen/Pelvis CT 08/20/19 15:35 IMPRESSION: Evaluation of the GI tract is limited by absence of oral contrast. Grossly satisfactory appearance of left lower quadrant ostomy. No gross evidence for obstruction or ileus. Cannot exclude segmental abnormalities of the bowel wall without oral contrast. Stable right ureteral stent. Fatty liver with hepatomegaly. Cholelithiasis. Electronically Signed: Trenton Jimenez MD at 17:45 EDT , Service support , Abdomen CT 08/20/19 17:40 IMPRESSION: Free air and extravasation of contrast apparently from the right colon proximal to the ileocecal valve, suggestive of perforation. Electronically Signed: Trenton Jimenez MD at 21:56 EDT , Service support , Chest X-Ray 08/21/19 02:04 IMPRESSION: 1. Bilateral medial lung base atelectasis versus infiltrate. 2. Appropriate positioning of supportive devices. Electronically Signed: Blayne Kim MD at 3:46 EDT Tel , Service support , Chest X-Ray 08/24/19 20:00 IMPRESSION: Right-sided PICC line noted appearing in adequate position. There has been interval removal of endotracheal tube seen on the previous study. A nasogastric tube is noted with tip at the level of the mid esophagus. Further advancement is recommended. Bibasilar infiltrates are again noted stable in the interval. There is a poor inspiration. Electronically Signed: Shashi Sexton MD at 20:26 EDT , Service support , KUB X-Ray 08/24/19 22:25 IMPRESSION: Nasogastric tube noted appearing in adequate position at this time. No evidence of ileus or obstruction. Electronically Signed: Shashi Sexton MD at 23:31 EDT , Service support , Abdomen/Pelvis CT 08/25/19 17:07 IMPRESSION: Fatty infiltration of the liver. Postsurgical changes of the bowel with no evidence of extravasation. Atherosclerosis. Consolidation within the right lower lobe. Cholelithiasis. Stable right ureteral stent. Stable large decubitus ulcer. Electronically Signed: Janet Quezada MD at 23:12 EDT Tel , Service support , Chest X-Ray 08/26/19 09:11 IMPRESSION: Right-sided PICC line tip in the distal SVC, no complications identified with the catheter. Partial but not yet complete resolution of the previously described bibasilar opacifications. Remote CABG Electronically Signed: Adam Clark MD at 9:58 EDT , Service support , KUB X-Ray 08/31/19 22:36 IMPRESSION: RIGHT ureteral stent. There is NO acute bowel abnormality. Electronically Signed: Mariano Lauren MD at 0:59 EDT , Service support , Chest X-Ray 08/31/19 23:50 IMPRESSION: Normal x-ray examination of the chest. Electronically Signed: Mariano Lauren MD at 1:04 EDT , Service support , Abdomen/Pelvis CT 09/01/19 05:04 IMPRESSION: There bilateral lower lobe pulmonary infiltrates. Liver is enlarged and fatty. There is a RIGHT ureteral stent in proper position. There is NO hydronephrosis. There bilateral kidney cysts. There has been a LEFT hemicolectomy. There is a LEFT lower quadrant colostomy. Urinary bladder wall is thickened. There is a ARREGUIN catheter. The balloon portion is inflated in the prostatic urethra. There is NO ascites or free air, abscess or adenopathy. Electronically Signed: Mariano Lauren MD at 6:30 EDT , Service support , Medical Necessity - Tobacco Use Smoking Status: Current every day smoker Assessment/Plan All Active Problems (Last Updated 08/25/19 @ 08:[address] Samina Heredia MD) Septic shock (Acute) Cecum perforation (Acute) Multiple drug resistant Acinetobacter infection (Acute) Methicillin resistant Staphylococcus aureus infection (Acute) Severe sepsis (Acute) Sacral wound (Acute) UTI (urinary tract infection) (Acute) RECOMMENDATIONS: 1. Send repeat cultures. 2. Continue antibiotics per ID recommendations. 3. Okay to discontinue covered precautions, given negative testing. 4. Check stool for occult blood. 5. Increase D5W infusion rate. 6. Send type and cross with plans to transfuse 2 units packed red blood cells. 7. Check H&H posttransfusion. 8. Obtain repeat plain film chest x-ray. IMPRESSIONS: 1. Septic shock The patient had been relatively stable clinically on antimicrobials to address his underlying polymicrobial bacteremia was suspected sacral osteomyelitis. Nevertheless, the patient developed high-grade fevers early this morning. He was subsequently transferred back to the medical intensive care unit. Repeat cultures are currently pending. Will defer antimicrobial management to infectious diseases. However, I do not see a readily identifiable alternative source of infection at this time. Repeat plain film chest x-ray will be obtained. At the current time, the patient is hemodynamically stable. 2. Anemia Hemoglobin was noted to be 6.7 g/dL this morning. There are no overt signs of blood loss. Will check stool occult blood. Plan to transfuse 2 units of packed red blood cells. Check H&H posttransfusion. Start IV PPI therapy twice daily. 3. Hypernatremia Sodium is increased to 152 this morning. We will plan to increase the patient's D5W infusion rate. Monitor chemistry profile closely. 4. Metabolic encephalopathy/Coronary artery disease status post CABG/atrial fibrillation/unspecified seizure disorder/diabetes mellitus/GERD Complicates care, management, recovery and prognosis. Continue home medications as indicated. This note was generated with [employer] software. It may contain incorrect words, spelling, and punctuation that were not noted in checking the note before signing. Inpatient E&M: [id number] [facility] L3
[2019-09-01 09:06] LABS: Lymphocyte 12 % (19-41); Monocyte 9 % (0-10); Neutrophil-Band 4 % (0-5); Neutrophil-Segmented 75 % (47-70); Total Cells Counted 100 (MANUAL DIFF)
[2019-09-01 09:09] LABS: Scan Smear per Review Criteria MANUAL DIFF
[2019-09-01 09:10] LABS: Differential Indicated MANUAL DIFF
[2019-09-01 09:12] LABS: Absolute Neutrophil Count 12.8 X10^3/uL (2.0-7.7)
[2019-09-01 09:13] LABS: Absolute Lymphocyte Count 1.94 X10^3/uL (0.83-4.51)
[2019-09-01 09:14] LABS: Hypochromasia 1+; Red Cell Morphology N CYTIC NORMAL (NORM C&C)
[2019-09-01 09:15] LABS: Platelet Estimate ADEQUATE (ADEQ)
[2019-09-01 09:28] LABS: Probe Check PASS; Specimen Processing Control PASS
--- NOTE | 2019-09-01 09:39 | PN_ITS ---
Patient Problems: Active and Suspected Problems (Last Updated 08/25/19 @ 08:[address] Samina Heredia MD) Septic shock (Acute) Cecum perforation (Acute) Severe sepsis (Acute) Sacral wound (Acute) UTI (urinary tract infection) (Acute) Subjective: Chief complaint: Follow-up after admission for severe sepsis secondary to stage IV infected sacral decubitus ulcer/osteomyelitis status post excision with partial ostectomy for osteomyelitis complicated by bacteremia and candidemia, patient underwent diversion end colostomy that was complicated by perforation of the cecum status post laparoscopic ileocecectomy with primary anastomosis. Overnight, patient developed high-grade fever again, became dyspneic and tachypneic, requiring up to 6 L of oxygen. Repeat lactic acid was elevated. Patient was transferred back to ICU. Patient seen and examined. This morning, he complained of abdominal pain. Denied shortness of breath. Denied nausea or vomiting. He has been having spikes of fever, tachycardic, blood pressure is maintained. He is on 4 L of oxygen and pulse ox is 96%. - Physical Exam Vitals/I&O's: Vital Signs Temp Pulse Resp BP Pulse Ox 101.6 F H 102 H 36 H 104/41 L 97 09/01/19 06:00 09/01/19 08:21 09/01/19 06:00 09/01/19 06:00 09/01/19 06:00 Oxygen Flow Rate (L/min) 4 Oxygen Delivery Method Nasal Cannula Weight: 286 lb 2.56 oz Body Mass Index (BMI) 43.0 Finger Stick Blood Glucose 191 Intake and Output for Last 24 Hours 08/30/19 08/31/19 09/01/19 23:59 23:59 23:59 Intake Total 3574.00 / 3574.00 4143.75 / 4143.75 2120 / 2120 Output Total 5775 / 5775 5550 / 5550 600 / 600 Balance -2201.00 / -2201.00 -1406.25 / -1406.25 1520 / 1520 General: Alert, Cooperative, Confused, Disoriented, - - Mildly short of breath. HEENT: Atraumatic, PERRLA, EOMI, Normocephalic Oral: Moist Mucosa, No Gingival or Mucosal Lesions/ Ulcerations Neck: Supple, No JVD, Negative Carotid Bruits, Trachea Midline, Thyroid Normal Size and Texture Lungs: Clear to auscultation, No rhonchi, No wheeze, No rales, Diminished, Short of Breath Cardiovascular: Regular rate, Regular Rhythm, Normal S1, Normal S2, PMI Normal, Tachycardic Abdomen: Bowel Sounds Present, Soft, Non-Distended, No Hepato-splenomegaly, Obese, Tender, - - Colostomy bag in place. Extremities: No clubbing, No cyanosis, Edema Skin: No rashes, No breakdown Lymphatic: No Cervical, Supraclavicular, or Inguinal Adenopathy Neurological: Cranial nerves II-XII grossly intact, Neuro grossly intact Psych/Mental Status: Flat Affect Microbiology Past 72 Hours 08/29/19 17:20 Other - Pic Miscellaneous Culture - Preliminary No growth-Final to follow 08/29/19 17:20 Other - Pic Gram Stain - Final 08/30/19 05:56 Blood Culture (Wb) - Left Hand Blood Culture - Preliminary No growth in 48 hours. 08/31/19 10:45 Stool C. difficile DNA Amplification - Final 08/29/19 14:10 Blood Culture (Wb) - Left Hand Blood Culture - Preliminary No growth in 48 hours. 08/25/19 Unknown Blood Culture (Wb) - Arm Right Blood Culture - Preliminary Yeast Like Organism 08/28/19 09:46 Blood Culture (Wb) - Left Hand Blood Culture - Preliminary No growth in 48 hours. 08/28/19 09:40 Blood Culture (Wb) - Other Blood Culture - Preliminary No growth in 48 hours. 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 REPAIR LABORER, MPV 12.1 H, Immature Gran % (Auto) 2.700 H, Neut % (Auto) 63.5, Lymph % (Auto) 23.3, [place] % (Auto) 9.6, Eos % (Auto) 0.2, Baso % (Auto) 0.7, Absolute Neuts (auto) 6.7, Absolute Lymphs (auto) 2.44, Nucleated RBC % 1.0, Differential Comment SCANNED, Platelet Estimate ADEQUATE 08/31/19 23:05: Sodium 144, Potassium 4.5, Chloride 117 H, Carbon Dioxide 18.0 L , Anion Gap 9, BUN 24 H, Creatinine 1.00, Estim Creat Clear Calc 80.52, Est GFR (MDRD) Af Amer 99, Est GFR (MDRD) Non-Af 82, BUN/Creatinine Ratio 24.0 H, Glucos e 131 H, Calcium 8.4 L 08/31/19 23:28: POC Glucose 130 H 09/01/19 03:20: WBC 13.5 H, RBC 2.52 L, Hgb 7.2 L, Hct 24.6 L, MCV 97.6 H, MCH 28.6, MCHC 29.3 L, RDW Std Deviation 58.9 H, RDW Coeff of Tio 17.5 H, Plt Count 318, MPV 10.6, Immature Gran % (Auto) 1.900 H, Neut % (Auto) 75.1 H, Lymph % (Auto) 12.7 L, [place] % (Auto) 10.0, Eos % (Auto) 0.1, Baso % (Auto) 0.2, Absolute Neuts (auto) 10.1 H, Absolute Lymphs (auto) 1.71, Nucleated RBC % 0.7, Differential Comment SCANNED, Reactive Lymphocytes 1+ 09/01/19 03:20: Lactic Acid 4.5 H* 09/01/19 06:55: POC Glucose 97 09/01/19 07:30: Urine Color Yellow, Urine Clarity Sl. Cloudy, Urine pH 5.0, Ur Specific [place] 1.010, Urine Protein 30 H, Urine Glucose (UA) Normal, Urine Ketones 5 H, Urine Occult Blood 150 H, Urine Nitrite Negative, Urine Bilirubin Negative, Urine Urobilinogen Normal, Ur Leukocyte Esterase 500 H, Urine RBC 10- 25 SEEN, Urine WBC 25-50 SEEN, Ur Squamous Epith Cells 0-5 SEEN, Urine Bacteria 1+, Urine Mucus 0 SEEN, Urine Yeast 2+ 09/01/19 07:55: COVID-19 (ZHEN) Negative 09/01/19 08:00: WBC 16.2 H, RBC 2.32 L, Hgb 6.7 L, Hct 22.7 L, MCV 97.8 H, MCH 28.9, MCHC 29.5 L, RDW Std Deviation 60.5 H, RDW Coeff of Tio 17.5 H, Plt Count 299, MPV 10.3, Immature Gran % (Auto) TRACK REPAIR LABORER, Neut % (Auto) TRACK REPAIR LABORER, Lymph % (Auto) TRACK REPAIR LABORER, [place] % (Auto) TRACK REPAIR LABORER, Eos % (Auto) TRACK REPAIR LABORER, Baso % (Auto) TRACK REPAIR LABORER, Absolute Neuts (auto) 12.8 H, Absolute Lymphs (auto) 1.94, Total Counted 100, Neutrophils % (Manual) 75 H, Band Neutrophils % 4, Lymphocytes % (Manual) 12 L, Monocytes % (Manual) 9, Nucleated RBC % TRACK REPAIR LABORER, Diff Path Review May foll, Platelet Estimate ADEQUATE, RBC Morphology N CYTIC, Hypochromasia 1+ Clinical Impression(s) from Imaging Studies Abdomen/Pelvis CT 09/01/19 05:04 IMPRESSION: There bilateral lower lobe pulmonary infiltrates. Liver is enlarged and fatty. There is a RIGHT ureteral stent in proper position. There is NO hydronephrosis. There bilateral kidney cysts. There has been a LEFT hemicolectomy. There is a LEFT lower quadrant colostomy. Urinary bladder wall is thickened. There is a CHAKRABORTY catheter. The balloon portion is inflated in the prostatic urethra. There is NO ascites or free air, abscess or adenopathy. Electronically Signed: Mariano Lauren MD at 6:30 EDT , Service support , Current Medications Acetaminophen (Tylenol Liquid) 650 mg PO Q6H PRN PRN PRN Reason: Pain Score 1-10/10 Last Admin: 09/01/19 04:28 Dose: 650 mg Documented by: [facility], [facility]) [facility] Admin: 09/01/19 08:21 Dose: 81 mg Documented by: Atorvastatin Calcium (Lipitor) 80 mg PO QHS [facility] Last Admin: 08/31/19 22:13 Dose: 80 mg Documented by: Calamine/Phenol (Calmoseptine Ointment) 1 applic TOPICAL TID [facility]; Protocol Last Admin: 09/01/19 06:26 Dose: 1 applicatio Documented by: Dextrose (D50w Syringe) 0 gm IV X1 PRN; Protocol PRN Reason: Hypoglycemia Diazepam (Valium) 5 mg PO Q6H PRN PRN PRN Reason: SPASMS Diltiazem HCl (Cardizem) 60 mg PO Q8 [facility] Last Admin: 09/01/19 06:27 Dose: 60 mg Documented by: Enoxaparin Sodium (Lovenox) 40 mg SC DAILY [facility] Last Admin: 09/01/19 08:37 Dose: 40 mg Documented by: Fenofibrate (Tricor) 145 mg PO DAILY [facility] Last Admin: 09/01/19 08:21 Dose: 145 mg Documented by: Folic Acid (Folic Acid) 1 mg PO DAILYCM [facility] Last Admin: 09/01/19 08:20 Dose: 1 mg Documented by: Glucagon () 1 mg IM .X1 PRN PRN Reason: Hypoglycemia Meropenem 1 gm/ Sodium (Chloride) 120 mls @ 33 mls/hr IV Q8 [facility] Last Admin: 09/01/19 06:23 Dose: 33 mls/hr Documented by: Sodium Chloride () 250 mls @ 15 mls/hr IV .[id number] PRN PRN Reason: Saline Flush Last Infusion: 08/31/19 05:11 Dose: 0 mls/hr Documented by: Sodium Chloride () 250 mls @ 15 mls/hr IV .[id number] PRN PRN Reason: Additional IVPB Infusion Eravacycline 125 mg/ Sodium (Chloride) 262.5 mls @ 262.5 mls/hr IV Q12 [facility] Last Infusion: 08/31/19 22:40 Dose: Infused Documented by: Daptomycin 1,000 mg/ Sodium (Chloride) 70 mls @ 140 mls/hr IV Q24 [facility] Last Infusion: 08/31/19 12:22 Dose: Infused Documented by: Dextrose () 1,000 mls @ 75 mls/hr IV .[id number] [facility] Last Admin: 08/31/19 21:42 Dose: 75 mls/hr Documented by: Micafungin Sodium 100 mg/ (Dextrose) 105 mls @ 100 mls/hr IV Q24 [facility] Last Infusion: 08/31/19 13:48 Dose: Infused Documented by: Pantoprazole Sodium 40 mg/ (Sodium Chloride) 110 mls @ 330 mls/hr IV Q12 [facility] Insulin Human Lispro (Humalog Kwikpen (Bkc)) 0 unit SC Q6H [facility]; Protocol Last Admin: 09/01/19 07:58 Dose: Not Given Documented by: Lactobacillus Acidophilus (Acidophilus) 2 tablet PO DAILY [facility] Last Admin: 09/01/19 08:20 Dose: 2 tablet Documented by: Metoprolol Tartrate (Lopressor (Beta Dana)) 100 mg PO BID [facility] Last Admin: 09/01/19 08:21 Dose: 100 mg Documented by: Nutritional Formula (Mike - Nash Flavor) 1 packet PO BID [facility] Last Admin: 09/01/19 08:21 Dose: 1 packet Documented by: Nutritional Formula (Lactose Free) (Ensure Enlive) 120 ml PO 4X/DAY [facility] Last Admin: 09/01/19 08:37 Dose: Not Given Documented by: Nystatin (Mycostatin Powder) 1 applic TOPICAL BID [facility]; Protocol Last Admin: 09/01/19 08:38 Dose: 1 applicatio Documented by: Potassium Chloride (Potassium Chl Soln) 20 meq PO BIDCM [facility] Last Admin: 09/01/19 08:22 Dose: 20 meq Documented by: Promethazine HCl (Phenergan Tablet) 25 mg PO Q4H PRN PRN PRN Reason: NAUSEA/VOMITING Sodium Chloride () 10 - 40 ml IV UD PRN PRN Reason: SALINE FLUSH Last Admin: 09/01/19 08:20 Dose: 20 ml Documented by: Sodium Hypochlorite (Dakins Solution 0.25% (1/2 Strength)) 1 applic TOPICAL BID [facility]; Protocol Last Admin: 08/31/19 23:33 Dose: 1 applicatio Documented by: Valproic Acid (Depakene) 750 mg PO TID [facility] Last Admin: 09/01/19 06:27 Dose: 750 mg Documented by: Medical Necessity - Tobacco Use Smoking Status: Current every day smoker Assessment/Plan All Active Problems (Last Updated 08/25/19 @ 08:[address] Samina Heredia MD) Septic shock (Acute) Cecum perforation (Acute) Multiple drug resistant Acinetobacter infection (Acute) Methicillin resistant Staphylococcus aureus infection (Acute) Severe sepsis (Acute) Sacral wound (Acute) UTI (urinary tract infection) (Acute) This is a 59 years old male patient presented [place] the emergency [facility] [place] the [place] [facility] because of change in mental status, found to have severe sepsis secondary to stage IV infected sacral decubitus ulcer, underwent excision with partial ostectomy for osteomyelitis complicated by bacteremia and candidemia, underwent diverting colostomy which was complicated by perforation of the cecum status post laparoscopic ileocecectomy with primary anastomosis. Overnight, patient became more dyspneic, tachypneic, requiring up to 6 L of oxygen and having spikes of fever, found to have elevated lactic acid consistent with septic shock and he was transferred back to ICU. #1 Septic shock: After significant improvement and being afebrile for more than 24 hours, patient started having fevers again, tachycardia, requiring 6 L of oxygen although he was on room air yesterday. Lactic acid was 5.3, came down to 4.5 today. It is unclear why patient went back into septic shock at this time. Initially, he did have severe sepsis which is attributed to infected sacral stage IV decubitus ulcer/osteomyelitis, acute complicated cystitis, bacteremia and candidemia. At this time, he is on IV daptomycin, Eravacycline and meropenem. He is on IV micafungin for candidemia. Infectious disease, critical care and general surgery are on the case. #2 polymicrobial infected stage IV sacral decubitus ulcer/osteomyelitis: Status post excision and partial ostectomy for osteomyelitis, postoperative day 13. Patient started having spikes of fever again, tachycardia, hypoxia and lactic acid was 5.3. Patient remains on IV antibiotics as mentioned above. Wound cult ure revealed E. coli, Proteus mirabilis, Providencia stuartii and MRSA as well as vancomycin resistant Enterococcus faecium. Infectious disease on the case. Plan as above. #3 Enterobacter cloacae/staph epidermidis bacteremia: Remained on IV daptomycin, meropenem and ERAVACYCLINE. Repeat blood culture revealed yeastlike organism, he is on IV micafungin. Repeat blood culture from August 28, 2019 showed no growth in 48 hours. Another repeat blood culture done today. Awaiting infectious disease recommendation about this new change. #4 candidemia: He is on IV micafungin. He has been afebrile overnight, WBC is trending down. PICC line was removed. Repeat blood culture that was done on August 29 showed no growth in 48 hours. Another repeat blood culture done today.. Plan to continue same treatment. #5 acute complicated cystitis: In the setting of chronic indwelling Chakraborty catheter. Patient was on IV antibiotics and antifungal. Culture revealed presumptive Lilliam albicans. #6 acute metabolic encephalopathy: Attributed to septic shock, initially patient was in severe sepsis. He remained alert but disoriented. #7 status post diversion colostomy: That was complicated by perforation of the cecum, status post laparoscopic ileocecectomy and primary stenosis. General surgery on the case. Repeat CT scan abdomen and pelvis with IV contrast done today and revealed bilateral lower lobe infiltrate, right ureteral stent without evidence of hydronephrosis, other findings reviewed. #8 acute on chronic anemia: Hemoglobin has been around 8 to 9 g/dL since admission. Today, it came down to 6.7. No obvious source of bleeding but stool was positive for occult blood. Plan to transfuse units of packed RBCs, repeat CBC tomorrow morning. #9 elevated LFT: Likely due to severe sepsis. No right upper quadrant tenderness. We will do a CMP this morning. #10 hypernatremia/hypokalemia: Both serum sodium and potassium normalized and remained stable. We will repeat CMP this morning. #11 type 2 diabetes mellitus: Blood sugar has been stable. He is on sliding scale only. Metformin held. #12 seizure disorder: Stable, continue p.o. valproic acid. #13 hypertension: Blood pressure is maintained at this time, continue metoprolol. #14 CAD status post CABG: Stable, no acute issues. Continue aspirin, statins, beta-blockers. #15 paroxysmal atrial fibrillation: Heart rate went up to around 115, continue Cardizem and metoprolol for rate control. He is not on anticoagulation. #16 DVT prophylaxis: Subcu Lovenox. This note was generated with [employer] dictation software. It may contain incorrect words, spelling, and punctuation that were not noted in checking the note before signing. Inpatient E&M: [id number] [facility] L[facility]
--- NOTE | 2019-09-01 09:45 | PN.SURG_ITS ---
Patient Problems: Active and Suspected Problems (Last Updated 08/25/19 @ 08:[address] Samina Heredia MD) Septic shock (Acute) Cecum perforation (Acute) Severe sepsis (Acute) Sacral wound (Acute) UTI (urinary tract infection) (Acute) Subjective: Patient was moved to the ICU overnight with sepsis - Physical Exam Vitals/I&O's: Vital Signs Temp Pulse Resp BP Pulse Ox 101.6 F H 102 H 36 H 104/41 L 97 09/01/19 06:00 09/01/19 08:21 09/01/19 06:00 09/01/19 06:00 09/01/19 06:00 Oxygen Flow Rate (L/min) 4 Oxygen Delivery Method Nasal Cannula Weight: 286 lb 2.56 oz Body Mass Index (BMI) 43.0 Finger Stick Blood Glucose 191 Intake and Output for Last 24 Hours 08/30/19 08/31/19 09/01/19 23:59 23:59 23:59 Intake Total 3574.00 / 3574.00 4143.75 / 4143.75 2120 / 2120 Output Total 5775 / 5775 5550 / 5550 600 / 600 Balance -2201.00 / -2201.00 -1406.25 / -1406.25 1520 / 1520 General: Alert, Cooperative, Confused Cardiovascular: Regular Rhythm, Tachycardic Abdomen: Soft, Non Tender, Non-Distended Microbiology Past 72 Hours 08/29/19 17:20 Other - Pic Miscellaneous Culture - Preliminary No growth-Final to follow 08/29/19 17:20 Other - Pic Gram Stain - Final 08/30/19 05:56 Blood Culture (Wb) - Left Hand Blood Culture - Preliminary No growth in 48 hours. 08/31/19 10:45 Stool C. difficile DNA Amplification - Final 08/29/19 14:10 Blood Culture (Wb) - Left Hand Blood Culture - Preliminary No growth in 48 hours. 08/25/19 Unknown Blood Culture (Wb) - Arm Right Blood Culture - Preliminary Yeast Like Organism 08/28/19 09:46 Blood Culture (Wb) - Left Hand Blood Culture - Preliminary No growth in 48 hours. 08/28/19 09:40 Blood Culture (Wb) - Other Blood Culture - Preliminary No growth in 48 hours. 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 Count MUSIC WORKER, MPV 12.1 H, Immature Gran % (Auto) 2.700 H, Neut % (Auto) 63.5, Lymph % (Auto) 23.3, [place] % (Auto) 9.6, Eos % (Auto) 0.2, Baso % (Auto) 0.7, Absolute Neuts (auto) 6.7, Absolute Lymphs (auto) 2.44, Nucleated RBC % 1.0, Differential Comment SCANNED, Platelet Estimate ADEQUATE 08/31/19 23:05: Sodium 144, Potassium 4.5, Chloride 117 H, Carbon Dioxide 18.0 L , Anion Gap 9, BUN 24 H, Creatinine 1.00, Estim Creat Clear Calc 80.52, Est GFR (MDRD) Af Amer 99, Est GFR (MDRD) Non-Af 82, BUN/Creatinine Ratio 24.0 H, Glucose 131 H, Calcium 8.4 L 08/31/19 23:28: POC Glucose 130 H 09/01/19 03:20: WBC 13.5 H, RBC 2.52 L, Hgb 7.2 L, Hct 24.6 L, MCV 97.6 H, MCH 28.6, MCHC 29.3 L, RDW Std Deviation 58.9 H, RDW Coeff of Tio 17.5 H, Plt Count 318, MPV 10.6, Immature Gran % (Auto) 1.900 H, Neut % (Auto) 75.1 H, Lymph % (Auto) 12.7 L, [place] % (Auto) 10.0, Eos % (Auto) 0.1, Baso % (Auto) 0.2, Absolute Neuts (auto) 10.1 H, Absolute Lymphs (auto) 1.71, Nucleated RBC % 0.7, Differential Comment SCANNED, Reactive Lymphocytes 1+ 09/01/19 03:20: Lactic Acid 4.5 H* 09/01/19 06:55: POC Glucose 97 09/01/19 07:30: Urine Color Yellow, Urine Clarity Sl. Cloudy, Urine pH 5.0, Ur Specific [place] 1.010, Urine Protein 30 H, Urine Glucose (UA) Normal, Urine Ketones 5 H, Urine Occult Blood 150 H, Urine Nitrite Negative, Urine Bilirubin Negative, Urine Urobilinogen Normal, Ur Leukocyte Esterase 500 H, Urine RBC 10- 25 SEEN, Urine WBC 25-50 SEEN, Ur Squamous Epith Cells 0-5 SEEN, Urine Bacteria 1+, Urine Mucus 0 SEEN, Urine Yeast 2+ 09/01/19 07:55: COVID-19 (ZHEN) Negative 09/01/19 08:00: WBC 16.2 H, RBC 2.32 L, Hgb 6.7 L, Hct 22.7 L, MCV 97.8 H, MCH 28.9, MCHC 29.5 L, RDW Std Deviation 60.5 H, RDW Coeff of Tio 17.5 H, Plt Count 299, MPV 10.3, Immature Gran % (Auto) MUSIC WORKER, Neut % (Auto) MUSIC WORKER, Lymph % (Auto) MUSIC WORKER, [place] % (Auto) MUSIC WORKER, Eos % (Auto) MUSIC WORKER, Baso % (Auto) MUSIC WORKER, Absolute Neuts (auto) 12.8 H, Absolute Lymphs (auto) 1.94, Total Counted 100, Neutrophils % (Manual) 75 H, Band Neutrophils % 4, Lymphocytes % (Manual) 12 L, Monocytes % (Manual) 9, Nucleated RBC % MUSIC WORKER, Diff Path Review May foll, Platelet Estimate ADEQUATE, RBC Morphology N CYTIC, Hypochromasia 1+ Current Medications Acetaminophen (Tylenol Liquid) 650 mg PO Q6H PRN PRN PRN Reason: Pain Score 1-10/10 Last Admin: 09/01/19 04:28 Dose: 650 mg Documented by: Aspirin ([facility]in, Baby) [facility] Last Admin: 09/01/19 08:21 Dose: 81 mg Documented by: Atorvastatin Calcium (Lipitor) 80 mg PO QHS [facility] Last Admin: 08/31/19 22:13 Dose: 80 mg Documented by: Calamine/Phenol (Calmoseptine Ointment) 1 applic TOPICAL TID [facility]; Protocol Last Admin: 09/01/19 06:26 Dose: 1 applicatio Documented by: Dextrose (D50w Syringe) 0 gm IV X1 PRN; Protocol PRN Reason: Hypoglycemia Diazepam (Valium) 5 mg PO Q6H PRN PRN PRN Reason: SPASMS Diltiazem HCl (Cardizem) 60 mg PO Q8 [facility] Last Admin: 09/01/19 06:27 Dose: 60 mg Documented by: Enoxaparin Sodium (Lovenox) 40 mg SC DAILY [facility] Last Admin: 09/01/19 08:37 Dose: 40 mg Documented by: Fenofibrate (Tricor) 145 mg PO DAILY [facility] Last Admin: 09/01/19 08:21 Dose: 145 mg Documented by: Folic Acid (Folic Acid) 1 mg PO DAILYCM [facility] Last Admin: 09/01/19 08:20 Dose: 1 mg Documented by: Glucagon () 1 mg IM .X1 PRN PRN Reason: Hypoglycemia Meropenem 1 gm/ Sodium (Chloride) 120 mls @ 33 mls/hr IV Q8 [facility] Last Admin: 09/01/19 06:23 Dose: 33 mls/hr Documented by: Sodium Chloride () 250 mls @ 15 mls/hr IV .[id number] PRN PRN Reason: Saline Flush Last Infusion: 08/31/19 05:11 Dose: 0 mls/hr Documented by: Sodium Chloride () 250 mls @ 15 mls/hr IV .[id number] PRN PRN Reason: Additional IVPB Infusion Eravacycline 125 mg/ Sodium (Chloride) 262.5 mls @ 262.5 mls/hr IV Q12 [facility] Last Infusion: 08/31/19 22:40 Dose: Infused Documented by: Daptomycin 1,000 mg/ Sodium (Chloride) 70 mls @ 140 mls/hr IV Q24 [facility] Last Infusion: 08/31/19 12:22 Dose: Infused Documented by: Dextrose () 1,000 mls @ 75 mls/hr IV .[id number] [facility] Last Admin: 08/31/19 21:42 Dose: 75 mls/hr Documented by: Micafungin Sodium 100 mg/ (Dextrose) 105 mls @ 100 mls/hr IV Q24 [facility] Last Infusion: 08/31/19 13:48 Dose: Infused Documented by: Pantoprazole Sodium 40 mg/ (Sodium Chloride) 110 mls @ 330 mls/hr IV Q12 [facility] Insulin Human Lispro (Humalog Kwikpen (Bkc)) 0 unit SC Q6H [facility]; Protocol Last Admin: 09/01/19 07:58 Dose: Not Given Documented by: Lactobacillus Acidophilus (Acidophilus) 2 tablet PO DAILY [facility] Last Admin: 09/01/19 08:20 Dose: 2 tablet Documented by: Metoprolol Tartrate (Lopressor (Beta Dana)) 100 mg PO BID [facility] Last Admin: 09/01/19 08:21 Dose: 100 mg Documented by: Nutritional Formula (Mike - [place] Flavor) 1 packet PO BID [facility] Last Admin: 09/01/19 08:21 Dose: 1 packet Documented by: Nutritional Formula (Lactose Free) (Ensure Enlive) 120 ml PO 4X/DAY [facility] Last Admin: 09/01/19 08:37 Dose: Not Given Documented by: Nystatin (Mycostatin Powder) 1 applic TOPICAL BID [facility]; Protocol Last Admin: 09/01/19 08:38 Dose: 1 applicatio Documented by: Potassium Chloride (Potassium Chl Soln) 20 meq PO BIDCM [facility] Last Admin: 09/01/19 08:22 Dose: 20 meq Documented by: Promethazine HCl (Phenergan Tablet) 25 mg PO Q4H PRN PRN PRN Reason: NAUSEA/VOMITING Sodium Chloride () 10 - 40 ml IV UD PRN PRN Reason: SALINE FLUSH Last Admin: 09/01/19 08:20 Dose: 20 ml Documented by: Sodium Hypochlorite (Dakins Solution 0.25% (1/2 Strength)) 1 applic TOPICAL BID [facility]; Protocol Last Admin: 08/31/19 23:33 Dose: 1 applicatio Documented by: Valproic Acid (Depakene) 750 mg PO TID [facility] Last Admin: 09/01/19 06:27 Dose: 750 mg Documented by: Medical Necessity - Tobacco Use Smoking Status: Current every day smoker Assessment/Plan All Active Problems (Last Updated 08/25/19 @ 08:[address] Samina Heredia MD) Septic shock (Acute) Cecum perforation (Acute) Multiple drug resistant Acinetobacter infection (Acute) Methicillin resistant Staphylococcus aureus infection (Acute) Severe sepsis (Acute) Sacral wound (Acute) UTI (urinary tract infection) (Acute) 59-year-old male with sepsis 1. Patient was brought back to the ICU with sepsis overnight. The patient had a CT scan overnight which did not show any abscess or intra-abdominal cause for his sepsis. There was no abscess around the colostomy. The colostomy was inspected this morning and it appears pink. There is some separation from the skin medially but there is no associated cellulitis or abscess. Patient's midline incision does have a very small area with some cellulitis but that is open and is being packed with wet-to-dry's and that has been like that for a few days. The right lower quadrant incision is clean with no cellulitis. There is some serous drainage from that area. According to the nurse there is a lot of serous drainage from his backside wound. The patient's white count is going up this morning and he is anemic. There is no etiology for his anemia or sepsis in the abdomen. He is having liquid stool from the colostomy and tolerating a supervised diet. The patient had C. difficile checked yesterday which was negative. Blood cultures are pending. UA and urine culture and Covid test are also pending. 2. I discussed the situation with the patient significant other. I discussed the work-up as well as his CAT scan. Jared Crystal MD Pager: [facility] [address] [place] [address], [address] [place] [address] Office:
[2019-09-01] MEDS: DAKIN'S SOL HALF STRENGTH (=0.25%) 1 APPLIC TOPICAL ×2 (10:24→22:23)
[2019-09-01 10:29] LABS: Procalcitonin 0.62 ng/mL (0.00-0.09)
--- NOTE | 2019-09-01 11:21 | CASEMGMT ---
LUNA received a message to call patient's POA Martha regarding [facility]. LUNA called Martha and she expressed concern with patient going back to [facility]. She feels he may be too sick for them to manage. LUNA told her LUNA and RN CAMILO were discussing possible LTACH for patient. She said she is familiar with LTACH as patient was in [facility] in [place] for quite awhile. She is not aware of any around this area. LUNA told her the closest would be [place] or [place]. She said she wants nothing to do with [place] or [place] and she would prefer [facility] in [place]. LUNA told her we will be following and when we get closer to discharge we will follow up with her regarding a plan. She said that would be great. Plan: SNF vs LTACH Amna ZARATE MSW
[2019-09-01 11:26] LABS: Bedside Glucose 116 mg/dL (70-110)
[2019-09-01 11:41] LABS: International Normalized Ratio 1.4
[2019-09-01 11:47] LABS: ALB/GLOB Ratio 0.2 RATIO (0.9-2.4); AST(SGOT) 246 U/L (15-37); Alanine Aminotransfer ALT/SGPT 129 U/L (16-61); Alkaline Phosphatase 310 U/L (45-117); Anion Gap 10 (5-15); BUN 20 mg/dL (7-18); BUN/Creat Ratio 25.3 RATIO (10-20); Calcium,Total 6.9 mg/dL (8.5-10.1); Chloride 122 mmol/L (98-107); Creatinine, Serum 0.79 mg/dL (0.70-1.30); EST Glomerular Filtration Rate 107 mL/min (>60); Est Glom Filt Rate - Afr Amer 130 mL/min (>60); Estimated Creatinine Clearance 101.92 ml/min; Globulin 5.5 g/dL (2.2-4.2); Glucose 106 mg/dL (74-106); Potassium 3.9 mmol/L (3.5-5.1); Protein, Total 6.5 g/dL (6.4-8.2); Sodium Level 152 mmol/L (136-145)
--- NOTE | 2019-09-01 12:17 | CASEMGMT ---
RN CAMILO Note: participated in ICU interdisciplinary rounding. Pt returned to ICU yesterday with sepsis, fever, tachypnea. Temp 103.3 overnight. Due to patient's condition and anticipated needs on dc, including multiple IV antibiotic therapy- may consider LTAC instead of SNF. Discussed with Dr. Campbell. CM to continue to follow and will discuss with patient when appropriate. Ramana LONG RN ACM
[2019-09-01 12:55] LABS: Pathologist Review Reviewed
--- NOTE | 2019-09-01 15:25 | CASEMGMT ---
Updates faxed to [facility]. SW also wrote on fax cover sheet that an LTACH is being considered at d/c. Amna BARON
--- NOTE | 2019-09-01 17:43 | PCM.PN.ID ---
Patient Problems: Active and Suspected Problems (Last Updated 08/25/19 @ 08:[address] Samina Heredia MD) Cecum perforation (Acute) Severe sepsis (Acute) Sacral wound (Acute) UTI (urinary tract infection) (Acute) Subjective: Moved back to ICU with fever, lactic acidosis, drop in hgb. Bcx repeat, CT done, seen by pulm and surgery. Feeling ok currently. Denies cough or SOB. No abd pain, no neck pain or headache. Repeat covid was neg. 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 - Physical Exam Vitals/I&O's: Vital Signs Temp Pulse Resp BP Pulse Ox 101.5 F H 92 32 H 111/62 95 09/01/19 14:57 09/01/19 15:01 09/01/19 14:57 09/01/19 14:57 09/01/19 14:57 Oxygen Flow Rate (L/min) 4 Oxygen Delivery Method Nasal Cannula Weight: 129.8 kg Body Mass Index (BMI) 43.0 Finger Stick Blood Glucose 191 Intake and Output for Last 24 Hours 08/30/19 08/31/19 09/01/19 23:59 23:59 23:59 Intake Total 3574.00 / 3574.00 4143.75 / 4143.75 4266.25 / 4266.25 Output Total 5775 / 5775 5550 / 5550 1350 / 1350 Balance -2201.00 / -2201.00 -1406.25 / -1406.25 2916.25 / 2916.25 General: Cooperative, No apparent distress Lungs: Clear to auscultation, Normal air movement Cardiovascular: Regular rate, Regular Rhythm Abdomen: Soft, Non Tender, Non-Distended Skin: No rashes Microbiology Past 72 Hours 09/01/19 10:00 Stool Stool Occult Blood (GEETA) - Final Occult Blood Positive 08/29/19 17:20 Other - Pic Miscellaneous Culture - Preliminary No growth-Final to follow 08/29/19 17:20 Other - Pic Gram Stain - Final 08/30/19 05:56 Blood Culture (Wb) - Left Hand Blood Culture - Preliminary No growth in 48 hours. 08/31/19 10:45 Stool C. difficile DNA Amplification - Final 08/29/19 14:10 Blood Culture (Wb) - Left Hand Blood Culture - Preliminary No growth in 48 hours. 08/25/19 Unknown Blood Culture (Wb) - Arm Right Blood Culture - Preliminary Yeast Like Organism 08/28/19 09:46 Blood Culture (Wb) - Left Hand Blood Culture - Preliminary No growth in 48 hours. 08/28/19 09:40 Blood Culture (Wb) - Other Blood Culture - Preliminary No growth in 48 hours. Laboratory Results 08/30/19 05:56: Diff Path Review Reviewed 08/31/19 17:14: POC Glucose 117 H 08/31/19 23:05: Lactic Acid 5.3 H* 08/31/19 23:05: WBC 10.5, RBC 3.33 L, Hgb 9.6 L, Hct 33.9 L, MCV 101.8 H, MCH 28.8, MCHC 28.3 L, RDW Std Deviation 63.7 H, RDW Coeff of Tio 18.2 H, Plt Count BACK SIZER, MPV 12.1 H, Immature Gran % (Auto) 2.700 H, Neut % (Auto) 63.5, Lymph % (Auto) 23.3, [place] % (Auto) 9.6, Eos % (Auto) 0.2, Baso % (Auto) 0.7, Absolute Neuts (auto) 6.7, Absolute Lymphs (auto) 2.44, Nucleated RBC % 1.0, Differential Comment SCANNED, Platelet Estimate ADEQUATE 08/31/19 23:05: Sodium 144, Potassium 4.5, Chloride 117 H, Carbon Dioxide 18.0 L, Anion Gap 9, BUN 24 H, Creatinine 1.00, Estim Creat Clear Calc 80.52, Est GFR (MDRD) Af Amer 99, Est GFR (MDRD) Non-Af 82, BUN/Creatinine Ratio 24.0 H, Glucose 131 H, Calcium 8.4 L 08/31/19 23:28: POC Glucose 130 H 09/01/19 03:20: WBC 13.5 H, RBC 2.52 L, Hgb 7.2 L, Hct 24.6 L, MCV 97.6 H, MCH 28.6, MCHC 29.3 L, RDW Std Deviation 58.9 H, RDW Coeff of Tio 17.5 H, Plt Count 318, MPV 10.6, Immature Gran % (Auto) 1.900 H, Neut % (Auto) 75.1 H, Lymph % (Auto) 12.7 L, [place] % (Auto) 10.0, Eos % (Auto) 0.1, Baso % (Auto) 0.2, Absolute Neuts (auto) 10.1 H, Absolute Lymphs (auto) 1.71, Nucleated RBC % 0.7, Differential Comment SCANNED, Reactive Lymphocytes 1+ 09/01/19 03:20: Lactic Acid 4.5 H* 09/01/19 06:55: POC Glucose 97 09/01/19 07:30: Urine Color Yellow, Urine Clarity Sl. Cloudy, Urine pH 5.0, Ur Specific [place] 1.010, Urine Protein 30 H, Urine Glucose (UA) Normal, Urine Ketones 5 H, Urine Occult Blood 150 H, Urine Nitrite Negative, Urine Bilirubin Negative, Urine Urobilinogen Normal, Ur Leukocyte Esterase 500 H, Urine RBC 10-25 SEEN, Urine WBC 25-50 SEEN, Ur Squamous Epith Cells 0-5 SEEN, Urine Bacteria 1+, Urine Mucus 0 SEEN, Urine Yeast 2+ 09/01/19 07:55: COVID-19 (ZHEN) Negative 09/01/19 08:00: WBC 16.2 H, RBC 2.32 L, Hgb 6.7 L, Hct 22.7 L, MCV 97.8 H, MCH 28.9, MCHC 29.5 L, RDW Std Deviation 60.5 H, RDW Coeff of Tio 17.5 H, Plt Count 299, MPV 10.3, Immature Gran % (Auto) BACK SIZER, Neut % (Auto) BACK SIZER, Lymph % (Auto) BACK SIZER, [place] % (Auto) BACK SIZER, Eos % (Auto) BACK SIZER, Baso % (Auto) BACK SIZER, Absolute Neuts (auto) 12.8 H, Absolute Lymphs (auto) 1.94, Total Counted 100, Neutrophils % (Manual) 75 H, Band Neutrophils % 4, Lymphocytes % (Manual) 12 L, Monocytes % (Manual) 9, Nucleated RBC % BACK SIZER, Diff Path Review May foll, Platelet Estimate ADEQUATE, RBC Morphology N CYTIC, Hypochromasia 1+ 09/01/19 10:00: Blood Type O NEGATIVE, Antibody Screen NEGATIVE, Crossmatch See Detail 09/01/19 10:00: Procalcitonin 0.62 H 09/01/19 11:10: POC Glucose 116 H 09/01/19 11:20: Sodium 152 H, Potassium 3.9, Chloride 122 H, Carbon Dioxide 20.0 L, Anion Gap 10, BUN 20 H, Creatinine 0.79, Estim Creat Clear Calc 101.92, Est GFR (MDRD) Af Amer 130, Est GFR (MDRD) Non-Af 107, BUN/Creatinine Ratio 25.3 H, Glucose 106, Calcium 6.9 L, Total Bilirubin 1.30 H, AST 246 H, ALT 129 H, Alkaline Phosphatase 310 H, Total Protein 6.5, Albumin 1.0 L, Globulin 5.5 H, Albumin/Globulin Ratio 0.2 L 09/01/19 11:20: PT 17.0 H, INR 1.4 Current Medications Acetaminophen (Tylenol Liquid) 650 mg PO Q6H PRN PRN PRN Reason: Pain Score 1-11/14 Last Admin: 09/01/19 11:23 Dose: 650 mg Documented by: Aspirin (Aspirin, Baby) [facility] Last Admin: 09/01/19 08:21 Dose: 81 mg Documented by: Atorvastatin Calcium (Lipitor) 80 mg PO QHS [facility] Last Admin: 08/31/19 22:13 Dose: 80 mg Documented by: Calamine/Phenol (Calmoseptine Ointment) 1 applic TOPICAL TID [facility]; Protocol Last Admin: 09/01/19 13:44 Dose: 1 applicatio Documented by: Dextrose (D50w Syringe) 0 gm IV X1 PRN; Protocol PRN Reason: Hypoglycemia Diazepam (Valium) 5 mg PO Q6H PRN PRN PRN Reason: SPASMS Diltiazem HCl (Cardizem) 60 mg PO Q8 [facility] Last Admin: 09/01/19 14:22 Dose: 60 mg Documented by: Enoxaparin Sodium (Lovenox) 40 mg SC DAILY [facility] Last Admin: 09/01/19 08:37 Dose: 40 mg Documented by: Fenofibrate (Tricor) 145 mg PO DAILY [facility] Last Admin: 09/01/19 08:21 Dose: 145 mg Documented by: Folic Acid (Folic Acid) 1 mg PO DAILYCM [facility] Last Admin: 09/01/19 08:20 Dose: 1 mg Documented by: Glucagon () 1 mg IM .X1 PRN PRN Reason: Hypoglycemia Meropenem 1 gm/ Sodium (Chloride) 120 mls @ 33 mls/hr IV Q8 [facility] Last Admin: 09/01/19 13:44 Dose: 33 mls/hr Documented by: Sodium Chloride () 250 mls @ 15 mls/hr IV .[id number] PRN PRN Reason: Saline Flush Last Infusion: 08/31/19 05:11 Dose: 0 mls/hr Documented by: Sodium Chloride () 250 mls @ 15 mls/hr IV .[id number] PRN PRN Reason: Additional IVPB Infusion Eravacycline 125 mg/ Sodium (Chloride) 262.5 mls @ 262.5 mls/hr IV Q12 [facility] Last Infusion: 09/01/19 11:37 Dose: Infused Documented by: Daptomycin 1,000 mg/ Sodium (Chloride) 70 mls @ 140 mls/hr IV Q24 [facility] Last Infusion: 09/01/19 12:16 Dose: Infused Documented by: Micafungin Sodium 100 mg/ (Dextrose) 105 mls @ 100 mls/hr IV Q24 [facility] Last Infusion: 09/01/19 15:53 Dose: Infused Documented by: Pantoprazole Sodium 40 mg/ (Sodium Chloride) 110 mls @ 330 mls/hr IV Q12 [facility] Dextrose () 1,000 mls @ 150 mls/hr IV .Q6H40M [facility] Insulin Human Lispro (Humalog Kwikpen (Bkc)) 0 unit SC Q6H [facility]; Protocol Last Admin: 09/01/19 11:12 Dose: Not Given Documented by: Lactobacillus Acidophilus (Acidophilus) 2 tablet PO DAILY [facility] Last Admin: 09/01/19 08:20 Dose: 2 tablet Documented by: Metoprolol Tartrate (Lopressor (Beta Dana)) 100 mg PO BID [facility] Last Admin: 09/01/19 08:21 Dose: 100 mg Documented by: Nutritional Formula (Lactose Free) (Ensure Enlive) 120 ml PO 4X/DAY [facility] Last Admin: 09/01/19 14:24 Dose: 120 ml Documented by: Nystatin (Mycostatin Powder) 1 applic TOPICAL BID [facility]; Protocol Last Admin: 09/01/19 08:38 Dose: 1 applicatio Documented by: Potassium Chloride (Potassium Chl Soln) [facility] Last Admin: 09/01/19 08:22 Dose: 20 meq Documented by: Promethazine HCl (Phenergan Tablet) 25 mg PO Q4H PRN PRN PRN Reason: NAUSEA/VOMITING Sodium Chloride () 10 - 40 ml IV UD PRN PRN Reason: SALINE FLUSH Last Admin: 09/01/19 11:15 Dose: 20 ml Documented by: Sodium Hypochlorite (Dakins Solution 0.25% (1/2 Strength)) 1 applic TOPICAL BID [facility]; Protocol Last Admin: 09/01/19 10:24 Dose: 1 applicatio Documented by: Valproic Acid (Depakene) 750 mg PO TID [facility] Last Admin: 09/01/19 14:22 Dose: 750 mg Documented by: Medical Necessity - Tobacco Use Smoking Status: Current every day smoker Route of nutrition/ use of supplements: [] Nutritional Intake: [] IV Site: [] Coyne Catheter: [] - Assessment/Plan Antibiotics: [] Assessment/Plan: [] Active and Suspected Problems (Last Updated 12/07/17 @ 08:57 by Shira Conte) Severe sepsis (Acute) Sacral wound (Acute) UTI (urinary tract infection) (Acute) severe sepsis with polymicrobial bacteremia, 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 OR 08/[address] Nguyễn for I&D. OR 08/[address] Crystal for diverting ostomy. On linezolid/gudelia/eravacycline. Wbc much improved. Wound cx with providencia, VRE, XDR Acinetobacter, MRSA, proteus. Bcx with enterobacter x2 and MRSE. Spoke with micro lab and requested additional susc testing for the AcB. VRE was R to linezolid, had fever, so 08/24 changed linezolid to dapto. Developed new yeast in bcx 08/24. Started micafungin, picc was removed and replaced. No veg seen on TTE, but poor quality study. This AM moved back to ICU with fever, lactic acidosis, drop in hgb, rising wbc. Bcx repeat, CT done, seen by pulm and surgery. Feeling ok currently. Denies cough or SOB. No abd pain, no neck pain or headache. Repeat covid was neg. 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 Will consult urology for assistance with catheter. Not clear why he worsened today. LFTs slightly improved. No peripheral eosinophils. If he worsens, only options left would be to broaden GNR coverage by changing eravacycline to colistin and/or broaden antifungal coverage by changing micafungin to ampho. Will follow, d/w nursing, Dr. Campbell and Dr. Crystal.
[2019-09-01 18:11] LABS: Bedside Glucose 110 mg/dL (70-110)
[2019-09-01] MEDS: Atorvastatin Calcium 80 MG Tablet PO (22:41)
--- NOTE | 2019-09-01 23:20 | NURSING ---
Using sterile technique, cleansed catheter and meatus using iodine cleanser. Withdrew 8ml of clear fluid from urinary catheter port and advanced urinary catheter approximately 2.
[2019-09-01 23:21] LABS: Bedside Glucose 75 mg/dL (70-110)
[2019-09-02] VITALS (25 sets, daily range): BP systolic 94–139; BP diastolic 51–94; PULSE 78–107; RESP 16–40; TEMP 38.1–38.7; O2SAT 93–99
[2019-09-02] MEDS: diazePAM 5 MG Tablet PO ×2 (01:51→21:13)
--- NOTE | 2019-09-02 06:01 | PCM.PN.INT ---
Subjective: The patient was seen and examined at the bedside this morning. Events from the last 24 hours have been reviewed. The patient continues to have fevers but remains hemodynamically stable on 4 L/min via nasal cannula. The patient seems more alert this morning and is pleasantly confused. His overall fever curve does appear to be improving. The patient's hemoglobin improved following transfusion of blood products yesterday. Sodium is improving as well. Objective: The patient's most recent lab work, culture data and imaging studies have all been personally reviewed. Surface echocardiogram from August 28 revealed a mildly dilated LV with an ejection fraction of 55% and stage I diastolic dysfunction. General: Alert, No apparent distress, Confused, Disoriented HEENT: Atraumatic, Normocephalic Oral: No Gingival or Mucosal Lesions/ Ulcerations Neck: Supple, No Nodes, Trachea Midline Lungs: Diminished, Tachypneic Cardiovascular: Regular rate, Regular Rhythm Abdomen: Bowel Sounds Present, Soft, Non Tender, - - +Ostomy Extremities: No clubbing, No cyanosis, Edema Skin: - - No significant change from previous. Musculoskeletal: No Muscle Wasting Lymphatic: No Cervical, Supraclavicular, or Inguinal Adenopathy Neurological: - - No focal neurological deficits. Psych/Mental Status: Normal Affect Vital Signs Temp Pulse Resp BP Pulse Ox 100.9 F H 85 24 H 123/79 H 94 09/02/19 04:00 09/02/19 04:00 09/02/19 04:00 09/02/19 04:00 09/02/19 04:00 Oxygen Flow Rate (L/min) 4 Oxygen Delivery Method Nasal Cannula Weight: 286 lb 2.56 oz Body Mass Index (BMI) 43.0 Finger Stick Blood Glucose 191 Intake and Output for Last 24 Hours 08/31/19 09/01/19 09/02/19 23:59 23:59 23:59 Intake Total 4143.75 / 4143.75 5951.25 / 6151.25 1235 / 1235 Output Total 5550 / 5550 2350 / 3100 750 / 750 Balance -1406.25 / -1406.25 3601.25 / 3051.25 485 / 485 Labs (Last 48 Hours) 08/28/19 08/30/19 08/31/19 10:55 05:56 06:04 WBC RBC Hgb Hct MCV MCH MCHC RDW Std Deviation RDW Coeff of Tio Plt Count MPV Immature Gran % (Auto) Neut % (Auto) Lymph % (Auto) Hart % (Auto) Eos % (Auto) Baso % (Auto) Absolute Neuts (auto) Absolute Lymphs (auto) Total Counted Neutrophils % (Manual) Band Neutrophils % Lymphocytes % (Manual) Monocytes % (Manual) Nucleated RBC % Differential Comment Diff Path Review Reviewed Reactive Lymphocytes Platelet Estimate RBC Morphology Hypochromasia PT INR Sodium Potassium Chloride Carbon Dioxide Anion Gap BUN Creatinine Estim Creat Clear Calc Est GFR (MDRD) Af Amer Est GFR (MDRD) Non-Af BUN/Creatinine Ratio Glucose Lactic Acid Calcium Total Bilirubin AST ALT Alkaline Phosphatase Total Protein Albumin Globulin Albumin/Globulin Ratio Procalcitonin Urine Color Urine Clarity Urine pH Ur Specific [place] Urine Protein Urine Glucose (UA) Urine Ketones Urine Occult Blood Urine Nitrite Urine Bilirubin Urine Urobilinogen Ur Leukocyte Esterase Urine RBC Urine WBC Ur Squamous Epith Cells Urine Bacteria Urine Mucus Urine Yeast COVID-19 (ZHEN) POC Glucose 106 Blood Type Antibody Screen Crossmatch See Detail 08/31/19 08/31/19 08/31/19 11:35 17:14 23:05 WBC RBC Hgb Hct MCV MCH MCHC RDW Std Deviation RDW Coeff of Tio Plt Count MPV Immature Gran % (Auto) Neut % (Auto) Lymph % (Auto) Hart % (Auto) Eos % (Auto) Baso % (Auto) Absolute Neuts (auto) Absolute Lymphs (auto) Total Counted Neutrophils % (Manual) Band Neutrophils % Lymphocytes % (Manual) Monocytes % (Manual) Nucleated RBC % Differential Comment Diff Path Review Reactive Lymphocytes Platelet Estimate RBC Morphology Hypochromasia PT INR Sodium Potassium Chloride Carbon Dioxide Anion Gap BUN Creatinine Estim Creat Clear Calc Est GFR (MDRD) Af Amer Est GFR (MDRD) Non-Af BUN/Creatinine Ratio Glucose Lactic Acid 5.3 H* Calcium Total Bilirubin AST ALT Alkaline Phosphatase Total Protein Albumin Globulin Albumin/Globulin Ratio Procalcitonin Urine Color Urine Clarity Urine pH Ur Specific [place] Urine Protein Urine Glucose (UA) Urine Ketones Urine Occult Blood Urine Nitrite Urine Bilirubin Urine Urobilinogen Ur Leukocyte Esterase Urine RBC Urine WBC Ur Squamous Epith Cells Urine Bacteria Urine Mucus Urine Yeast COVID-19 (ZHEN) POC Glucose 94 117 H Blood Type Antibody Screen Crossmatch 07/26/20 07/26/20 07/26/20 23:05 23:05 23:28 WBC 10.5 RBC 3.33 L Hgb 9.6 L Hct 33.9 L MCV 101.8 H MCH 28.8 MCHC 28.3 L RDW Std Deviation 63.7 H RDW Coeff of Tio 18.2 H Plt Count BUSINESS MANAGEMENT MANAGER MPV 12.1 H Immature Gran % (Auto) 2.700 H Neut % (Auto) 63.5 Lymph % (Auto) 23.3 Hart % (Auto) 9.6 Eos % (Auto) 0.2 Baso % (Auto) 0.7 Absolute Neuts (auto) 6.7 Absolute Lymphs (auto) 2.44 Total Counted Neutrophils % (Manual) Band Neutrophils % Lymphocytes % (Manual) Monocytes % (Manual) Nucleated RBC % 1.0 Differential Comment SCANNED Diff Path Review Reactive Lymphocytes Platelet Estimate ADEQUATE RBC Morphology Hypochromasia PT INR Sodium 144 Potassium 4.5 Chloride 117 H Carbon Dioxide 18.0 L Anion Gap 9 BUN 24 H Creatinine 1.00 Estim Creat Clear Calc 80.52 Est GFR (MDRD) Af Amer 99 Est GFR (MDRD) Non-Af 82 BUN/Creatinine Ratio 24.0 H Glucose 131 H Lactic Acid Calcium 8.4 L Total Bilirubin AST ALT Alkaline Phosphatase Total Protein Albumin Globulin Albumin/Globulin Ratio Procalcitonin Urine Color Urine Clarity Urine pH Ur Specific [place] Urine Protein Urine Glucose (UA) Urine Ketones Urine Occult Blood Urine Nitrite Urine Bilirubin Urine Urobilinogen Ur Leukocyte Esterase Urine RBC Urine WBC Ur Squamous Epith Cells Urine Bacteria Urine Mucus Urine Yeast COVID-19 (ZHEN) POC Glucose 130 H Blood Type Antibody Screen Crossmatch 09/01/19 09/01/19 09/01/19 03:20 03:20 06:55 WBC 13.5 H RBC 2.52 L Hgb 7.2 L Hct 24.6 L MCV 97.6 H MCH 28.6 MCHC 29.3 L RDW Std Deviation 58.9 H RDW Coeff of Tio 17.5 H Plt Count 318 MPV 10.6 Immature Gran % (Auto) 1.900 H Neut % (Auto) 75.1 H Lymph % (Auto) 12.7 L Hart % (Auto) 10.0 Eos % (Auto) 0.1 Baso % (Auto) 0.2 Absolute Neuts (auto) 10.1 H Absolute Lymphs (auto) 1.71 Total Counted Neutrophils % (Manual) Band Neutrophils % Lymphocytes % (Manual) Monocytes % (Manual) Nucleated RBC % 0.7 Differential Comment SCANNED Diff Path Review Reactive Lymphocytes 1+ Platelet Estimate RBC Morphology Hypochromasia PT INR Sodium Potassium Chloride Carbon Dioxide Anion Gap BUN Creatinine Estim Creat Clear Calc Est GFR (MDRD) Af Amer Est GFR (MDRD) Non-Af BUN/Creatinine Ratio Glucose Lactic Acid 4.5 H* Calcium Total Bilirubin AST ALT Alkaline Phosphatase Total Protein Albumin Globulin Albumin/Globulin Ratio Procalcitonin Urine Color Urine Clarity Urine pH Ur Specific [place] Urine Protein Urine Glucose (UA) Urine Ketones Urine Occult Blood Urine Nitrite Urine Bilirubin Urine Urobilinogen Ur Leukocyte Esterase Urine RBC Urine WBC Ur Squamous Epith Cells Urine Bacteria Urine Mucus Urine Yeast COVID-19 (ZHEN) POC Glucose 97 Blood Type Antibody Screen Crossmatch 09/01/19 09/01/19 09/01/19 07:30 07:55 08:00 WBC 16.2 H RBC 2.32 L Hgb 6.7 L Hct 22.7 L MCV 97.8 H MCH 28.9 MCHC 29.5 L RDW Std Deviation 60.5 H RDW Coeff of Tio 17.5 H Plt Count 299 MPV 10.3 Immature Gran % (Auto) BUSINESS MANAGEMENT MANAGER Neut % (Auto) BUSINESS MANAGEMENT MANAGER Lymph % (Auto) BUSINESS MANAGEMENT MANAGER Hart % (Auto) BUSINESS MANAGEMENT MANAGER Eos % (Auto) BUSINESS MANAGEMENT MANAGER Baso % (Auto) BUSINESS MANAGEMENT MANAGER Absolute Neuts (auto) 12.8 H Absolute Lymphs (auto) 1.94 Total Counted 100 Neutrophils % (Manual) 75 H Band Neutrophils % 4 Lymphocytes % (Manual) 12 L Monocytes % (Manual) 9 Nucleated RBC % BUSINESS MANAGEMENT MANAGER Differential Comment Diff Path Review May foll Reactive Lymphocytes Platelet Estimate ADEQUATE RBC Morphology N CYTIC Hypochromasia 1+ PT INR Sodium Potassium Chloride Carbon Dioxide Anion Gap BUN Creatinine Estim Creat Clear Calc Est GFR (MDRD) Af Amer Est GFR (MDRD) Non-Af BUN/Creatinine Ratio Glucose Lactic Acid Calcium Total Bilirubin AST ALT Alkaline Phosphatase Total Protein Albumin Globulin Albumin/Globulin Ratio Procalcitonin Urine Color Yellow Urine Clarity Sl. Cloudy Urine pH 5.0 Ur Specific [place] 1.010 Urine Protein 30 H Urine Glucose (UA) Normal Urine Ketones 5 H Urine Occult Blood 150 H Urine Nitrite Negative Urine Bilirubin Negative Urine Urobilinogen Normal Ur Leukocyte Esterase 500 H Urine RBC 10-25 SEEN Urine WBC 25-50 SEEN Ur Squamous Epith Cells 0-5 SEEN Urine Bacteria 1+ Urine Mucus 0 SEEN Urine Yeast 2+ COVID-19 (ZHEN) Negative POC Glucose Blood Type Antibody Screen Crossmatch 09/01/19 09/01/19 09/01/19 10:00 10:00 11:10 WBC RBC Hgb Hct MCV MCH MCHC RDW Std Deviation RDW Coeff of Tio Plt Count MPV Immature Gran % (Auto) Neut % (Auto) Lymph % (Auto) Hart % (Auto) Eos % (Auto) Baso % (Auto) Absolute Neuts (auto) Absolute Lymphs (auto) Total Counted Neutrophils % (Manual) Band Neutrophils % Lymphocytes % (Manual) Monocytes % (Manual) Nucleated RBC % Differential Comment Diff Path Review Reactive Lymphocytes Platelet Estimate RBC Morphology Hypochromasia PT INR Sodium Potassium Chloride Carbon Dioxide Anion Gap BUN Creatinine Estim Creat Clear Calc Est GFR (MDRD) Af Amer Est GFR (MDRD) Non-Af BUN/Creatinine Ratio Glucose Lactic Acid Calcium Total Bilirubin AST ALT Alkaline Phosphatase Total Protein Albumin Globulin Albumin/Globulin Ratio Procalcitonin 0.62 H Urine Color Urine Clarity Urine pH Ur Specific [place] Urine Protein Urine Glucose (UA) Urine Ketones Urine Occult Blood Urine Nitrite Urine Bilirubin Urine Urobilinogen Ur Leukocyte Esterase Urine RBC Urine WBC Ur Squamous Epith Cells Urine Bacteria Urine Mucus Urine Yeast COVID-19 (ZHEN) POC Glucose 116 H Blood Type O NEGATIVE Antibody Screen NEGATIVE Crossmatch See Detail 09/01/19 09/01/19 09/01/19 11:20 11:20 17:55 WBC RBC Hgb Hct MCV MCH MCHC RDW Std Deviation RDW Coeff of Tio Plt Count MPV Immature Gran % (Auto) Neut % (Auto) Lymph % (Auto) Hart % (Auto) Eos % (Auto) Baso % (Auto) Absolute Neuts (auto) Absolute Lymphs (auto) Total Counted Neutrophils % (Manual) Band Neutrophils % Lymphocytes % (Manual) Monocytes % (Manual) Nucleated RBC % Differential Comment Diff Path Review Reactive Lymphocytes Platelet Estimate RBC Morphology Hypochromasia PT 17.0 H INR 1.4 Sodium 152 H Potassium 3.9 Chloride 122 H Carbon Dioxide 20.0 L Anion Gap 10 BUN 20 H Creatinine 0.79 Estim Creat Clear Calc 101.92 Est GFR (MDRD) Af Amer 130 Est GFR (MDRD) Non-Af 107 BUN/Creatinine Ratio 25.3 H Glucose 106 Lactic Acid Calcium 6.9 L Total Bilirubin 1.30 H AST 246 H ALT 129 H Alkaline Phosphatase 310 H Total Protein 6.5 Albumin 1.0 L Globulin 5.5 H Albumin/Globulin Ratio 0.2 L Procalcitonin Urine Color Urine Clarity Urine pH Ur Specific [place] Urine Protein Urine Glucose (UA) Urine Ketones Urine Occult Blood Urine Nitrite Urine Bilirubin Urine Urobilinogen Ur Leukocyte Esterase Urine RBC Urine WBC Ur Squamous Epith Cells Urine Bacteria Urine Mucus Urine Yeast COVID-19 (ZHEN) POC Glucose 110 Blood Type Antibody Screen Crossmatch 09/01/19 23:14 WBC RBC Hgb Hct MCV MCH MCHC RDW Std Deviation RDW Coeff of Tio Plt Count MPV Immature Gran % (Auto) Neut % (Auto) Lymph % (Auto) Hart % (Auto) Eos % (Auto) Baso % (Auto) Absolute Neuts (auto) Absolute Lymphs (auto) Total Counted Neutrophils % (Manual) Band Neutrophils % Lymphocytes % (Manual) Monocytes % (Manual) Nucleated RBC % Differential Comment Diff Path Review Reactive Lymphocytes Platelet Estimate RBC Morphology Hypochromasia PT INR Sodium Potassium Chloride Carbon Dioxide Anion Gap BUN Creatinine Estim Creat Clear Calc Est GFR (MDRD) Af Amer Est GFR (MDRD) Non-Af BUN/Creatinine Ratio Glucose Lactic Acid Calcium Total Bilirubin AST ALT Alkaline Phosphatase Total Protein Albumin Globulin Albumin/Globulin Ratio Procalcitonin Urine Color Urine Clarity Urine pH Ur Specific [place] Urine Protein Urine Glucose (UA) Urine Ketones Urine Occult Blood Urine Nitrite Urine Bilirubin Urine Urobilinogen Ur Leukocyte Esterase Urine RBC Urine WBC Ur Squamous Epith Cells Urine Bacteria Urine Mucus Urine Yeast COVID-19 (ZHEN) POC Glucose 75 Blood Type Antibody Screen Crossmatch Microbiology 09/01/19 10:00 Stool Stool Occult Blood (GEETA) - Final Occult Blood Positive 08/29/19 17:20 Other - Pic Miscellaneous Culture - Preliminary No growth-Final to follow 08/29/19 17:20 Other - Pic Gram Stain - Final 08/30/19 05:56 Blood Culture (Wb) - Left Hand Blood Culture - Preliminary No growth in 48 hours. 08/31/19 10:45 Stool C. difficile DNA Amplification - Final 08/29/19 14:10 Blood Culture (Wb) - Left Hand Blood Culture - Preliminary No growth in 48 hours. Clinical Impression(s) from Imaging Studies Abdomen/Pelvis CT 08/18/19 11:37 IMPRESSION: Hepatomegaly and fatty infiltration of the liver. Right-sided double-J stent catheter with the proximal tip in the right mid pole calyces of the right kidney and the distal tip within the urinary bladder. Small cyst in the left kidney. Diffuse bladder wall thickening. The balloon of a Arreguin catheter is seen within the prostatic urethra. Stable large soft tissue defect overlying the sacrum. Electronically Signed: Erwin Lazo, at 13:14 EDT , Service support , Chest X-Ray 08/18/19 12:40 IMPRESSION: Status post CABG. Cardiomegaly. Electronically Signed: Erwin Lazo, at 13:09 EDT , Service support , KUB X-Ray 08/20/19 14:01 IMPRESSION: The tip of the nasogastric tube is in the distal portion of the body of the stomach. Electronically Signed: Erwin Lazo, at 14:45 EDT , Service support , Abdomen/Pelvis CT 08/20/19 15:35 IMPRESSION: Evaluation of the GI tract is limited by absence of oral contrast. Grossly satisfactory appearance of left lower quadrant ostomy. No gross evidence for obstruction or ileus. Cannot exclude segmental abnormalities of the bowel wall without oral contrast. Stable right ureteral stent. Fatty liver with hepatomegaly. Cholelithiasis. Electronically Signed: Trenton Jimenez MD at 17:45 EDT , Service support , Abdomen CT 08/20/19 17:40 IMPRESSION: Free air and extravasation of contrast apparently from the right colon proximal to the ileocecal valve, suggestive of perforation. Electronically Signed: Trenton Jimenez MD at 21:56 EDT , Service support , Chest X-Ray 08/21/19 02:04 IMPRESSION: 1. Bilateral medial lung base atelectasis versus infiltrate. 2. Appropriate positioning of supportive devices. Electronically Signed: Blayne Kim MD at 3:46 EDT Tel , Service support , Chest X-Ray 08/24/19 20:00 IMPRESSION: Right-sided PICC line noted appearing in adequate position. There has been interval removal of endotracheal tube seen on the previous study. A nasogastric tube is noted with tip at the level of the mid esophagus. Further advancement is recommended. Bibasilar infiltrates are again noted stable in the interval. There is a poor inspiration. Electronically Signed: Shashi Sexton MD at 20:26 EDT , Service support , KUB X-Ray 08/24/19 22:25 IMPRESSION: Nasogastric tube noted appearing in adequate position at this time. No evidence of ileus or obstruction. Electronically Signed: Shashi Sexton MD at 23:31 EDT , Service support , Abdomen/Pelvis CT 08/25/19 17:07 IMPRESSION: Fatty infiltration of the liver. Postsurgical changes of the bowel with no evidence of extravasation. Atherosclerosis. Consolidation within the right lower lobe. Cholelithiasis. Stable right ureteral stent. Stable large decubitus ulcer. Electronically Signed: Janet Quezada MD at 23:12 EDT Tel , Service support , Chest X-Ray 08/26/19 09:11 IMPRESSION: Right-sided PICC line tip in the distal SVC, no complications identified with the catheter. Partial but not yet complete resolution of the previously described bibasilar opacifications. Remote CABG Electronically Signed: Adam Clark MD at 9:58 EDT , Service support , KUB X-Ray 08/31/19 22:36 IMPRESSION: RIGHT ureteral stent. There is NO acute bowel abnormality. Electronically Signed: Mariano Lauren MD at 0:59 EDT , Service support , Chest X-Ray 08/31/19 23:50 IMPRESSION: Normal x-ray examination of the chest. Electronically Signed: Mariano Lauren MD at 1:04 EDT , Service support , Abdomen/Pelvis CT 09/01/19 05:04 IMPRESSION: There bilateral lower lobe pulmonary infiltrates. Liver is enlarged and fatty. There is a RIGHT ureteral stent in proper position. There is NO hydronephrosis. There bilateral kidney cysts. There has been a LEFT hemicolectomy. There is a LEFT lower quadrant colostomy. Urinary bladder wall is thickened. There is a ARREGUIN catheter. The balloon portion is inflated in the prostatic urethra. There is NO ascites or free air, abscess or adenopathy. Electronically Signed: Mariano Lauren MD at 6:30 EDT , Service support , Chest X-Ray 09/01/19 08:51 IMPRESSION: No acute abnormalities seen. Stable examination. Electronically Signed: Erwin Lazo, at 13:31 EDT , Service support , Medical Necessity - Tobacco Use Smoking Status: Current every day smoker Assessment/Plan All Active Problems (Last Updated 08/25/19 @ 08:[address] Samina Heredia MD) Septic shock (Acute) Cecum perforation (Acute) Multiple drug resistant Acinetobacter infection (Acute) Methicillin resistant Staphylococcus aureus infection (Acute) Severe sepsis (Acute) Sacral wound (Acute) UTI (urinary tract infection) (Acute) RECOMMENDATIONS: 1. Continue antibiotics per ID recommendations. 2. Continue D5W. 3. Monitor H&H daily. Plan to transfuse if hemoglobin drops below 7 g/dL. 4. Encourage incentive spirometer use and mobilize patient as tolerated. 5. Wean supplemental oxygen to maintain saturations at or above 90%. 6. The patient is medically stable for transfer out of the intensive care unit. IMPRESSIONS: 1. Septic shock The patient had been relatively stable clinically on antimicrobials to address his underlying polymicrobial bacteremia was suspected sacral osteomyelitis. Nevertheless, the patient developed high-grade fevers on 08/31, along with a lactic acidemia, which prompted his transfer back to the ICU. Repeat cultures have been unrevealing thus far. The patient remains on antimicrobials under the discretion of infectious diseases. I do not see a readily identifiable new alternative source of infection at this time. The patient remains hemodynamically stable. 2. Anemia Hemoglobin was noted to be 6.7 g/dL on 08/31. The patient received 2 units of packed red blood cells with subsequent improvement. There are no overt signs of blood loss. The patient will be continued on twice daily PPI therapy. Continue to monitor H/H daily with plans to transfuse if hemoglobin drops below 7 g/dL. 3. Hypernatremia Improving on D5W infusion. Continue to monitor BMP daily. 4. Metabolic encephalopathy/Coronary artery disease status post CABG/atrial fibrillation/unspecified seizure disorder/diabetes mellitus/GERD Complicates care, management, recovery and prognosis. Continue home medications as indicated. Physical therapy to mobilize patient as tolerated. This note was generated with [employer] dictation software. It may contain incorrect words, spelling, and punctuation that were not noted in checking the note before signing. Inpatient E&M: [id number] [facility] L[facility]
[2019-09-02] MEDS: 0.9% Saline Lock 10 ML Syringe IV (06:07)
[2019-09-02 06:09] LABS: Absolute Lymphocyte Count 1.97 X10^3/uL (0.83-4.51); Absolute Neutrophil Count 8.2 X10^3/uL (2.0-7.7); Basophil# 0.03 X10^3/uL; Basophil% 0.3 % (0-1); Eosinophil# 0.03 X10^3/uL; Eosinophils% 0.3 % (0-5); Hematocrit 29.8 % (40-54); Hemoglobin 9.1 g/dL (13.0-16.5); Lymphocyte # 1.97 X10^3/ul (4.0); Lymphocyte % 17.6 % (19-41); Mean Corp Hgb Conc 30.5 g/dL (32-36); Mean Corpuscular Hgb 29.5 pg (27.0-32.0); Mean Corpuscular Volume 96.8 fL (80-94); Mean Platelet Vol. 10.7 fl (6.2-12.0); Monocyte# 0.82 X10^3/uL; Monocyte% 7.3 % (0-10); NRBC Flagged by Analyzer 0.4 % (0-5); Neutrophil # 8.16 X10^3/uL (2.7-7.7); Neutrophil % 72.9 % (47-70); POSITIVE MORPHOLOGY YES; Platelet Count 317 K/mm3 (150-450); RBC Distribution Width CV 18.1 % (11.6-14.6); RBC Distribution Width SD 56.4 fl (35.1-43.9); Red Blood Count 3.08 M/mm3 (4.6-6.2); White Blood Count 11.2 K/mm3 (4.4-11.0)
[2019-09-02] MEDS: Menthol/Lanolin/Calamine/Znox 113 GM Tube 1 APPLIC TOPICAL ×3 (06:10→21:28)
[2019-09-02 06:13] LABS: Differential Indicated SCAN CRITERIA MET
[2019-09-02 06:22] LABS: Anion Gap 5 (5-15); BUN 20 mg/dL (7-18); BUN/Creat Ratio 22.3 RATIO (10-20); Chloride 120 mmol/L (98-107); EST Glomerular Filtration Rate 93 mL/min (>60); Est Glom Filt Rate - Afr Amer 112 mL/min (>60); Estimated Creatinine Clearance 89.47 ml/min; Glucose 92 mg/dL (74-106); Potassium 4.4 mmol/L (3.5-5.1); Sodium Level 149 mmol/L (136-145)
[2019-09-02] MEDS: Valproic Acid 250 MG/5 ML UDC 750 MG PO ×3 (06:23→21:12)
[2019-09-02] MEDS: dilTIAZem 30 MG Tablet 60 MG PO ×3 (06:23→21:12)
[2019-09-02 06:28] LABS: Differential Comment SCANNED; Reactive Lymphocyte 2+
[2019-09-02 06:36] LABS: Bedside Glucose 78 mg/dL (70-110)
--- NOTE | 2019-09-02 09:12 | PN_ITS ---
Patient Problems: Active and Suspected Problems (Last Updated 08/25/19 @ 08:[address] Samina Heredia MD) Cecum perforation (Acute) Severe sepsis (Acute) Sacral wound (Acute) UTI (urinary tract infection) (Acute) Subjective: Chief complaint: Follow-up after admission for septic shock, persistent fever, stage IV infected sacral decubitus ulcer/osteomyelitis status post excision with partial ostectomy for osteomyelitis, complicated by bacteremia and candidemia. Patient underwent diversion colostomy that was complicated by cecal perforation, status post laparoscopic ileocecectomy with primary anastomosis. Patient seen and examined. No acute events overnight. This morning, he is alert, awake, being given food by nurse aide. He is still having spikes of fever, heart rate stable, blood pressure is maintained, pulse ox is 96% on 4 L. - Physical Exam Vitals/I&O's: Vital Signs Temp Pulse Resp BP Pulse Ox 100.8 F H 86 22 H 123/81 H 96 09/02/19 06:00 09/02/19 06:00 09/02/19 06:00 09/02/19 06:00 09/02/19 07:00 Oxygen Flow Rate (L/min) 2 Oxygen Delivery Method Nasal Cannula Weight: 283 lb 15.286 oz Body Mass Index (BMI) 43.0 Finger Stick Blood Glucose 191 Intake and Output for Last 24 Hours 08/31/19 09/01/19 09/02/19 23:59 23:59 23:59 Intake Total 4143.75 / 4143.75 5951.25 / 6151.25 1437.5 / 1437.5 Output Total 5550 / 5550 2350 / 3100 1700 / 1700 Balance -1406.25 / -1406.25 3601.25 / 3051.25 -262.5 / -262.5 General: Alert, Cooperative, No apparent distress, Confused, Disoriented HEENT: Atraumatic, PERRLA, EOMI, Normocephalic Oral: Moist Mucosa, No Gingival or Mucosal Lesions/ Ulcerations Neck: Supple, No JVD, Negative Carotid Bruits, Trachea Midline, Thyroid Normal Size and Texture Lungs: Clear to auscultation, No rhonchi, No wheeze, No rales, Diminished, - - Decreased breath sounds bilateral, otherwise clear. Cardiovascular: Regular rate, Regular Rhythm, Normal S1, Normal S2, PMI Normal Abdomen: Bowel Sounds Present, Soft, Non-Distended, No Hepato-splenomegaly, Obese, Tender - Minimal tenderness. Colostomy bag in place. Extremities: No clubbing, No cyanosis, Edema Skin: No rashes, Ulcer/ Wound Lymphatic: No Cervical, Supraclavicular, or Inguinal Adenopathy Neurological: Cranial nerves II-XII grossly intact, Neuro grossly intact Psych/Mental Status: Flat Affect Microbiology Past 72 Hours 09/01/19 07:30 Urine Catheter - Chakraborty Urine Culture - Preliminary Yeast Like Organism 08/29/19 17:20 Other - Pic Miscellaneous Culture - Final Staphylococcus epidermidis 08/29/19 17:20 Other - Pic Gram Stain - Final 09/01/19 10:00 Stool Stool Occult Blood (GEETA) - Final Occult Blood Positive 08/30/19 05:56 Blood Culture (Wb) - Left Hand Blood Culture - Preliminary No growth in 48 hours. 08/31/19 10:45 Stool C. difficile DNA Amplification - Final 08/29/19 14:10 Blood Culture (Wb) - Left Hand Blood Culture - Preliminary No growth in 48 hours. 08/25/19 Unknown Blood Culture (Wb) - Arm Right Blood Culture - Preliminary Yeast Like Organism 08/28/19 09:46 Blood Culture (Wb) - Left Hand Blood Culture - Preliminary No growth in 48 hours. 08/28/19 09:40 Blood Culture (Wb) - Other Blood Culture - Preliminary No growth in 48 hours. Laboratory Results 08/30/19 05:56: Diff Path Review Reviewed 09/01/19 07:55: COVID-19 (ZHEN) Negative 09/01/19 08:00: Absolute Neuts (auto) 12.8 H, Absolute Lymphs (auto) 1.94, Diff Path Review June, Platelet Estimate ADEQUATE, RBC Morphology N CYTIC, Hypochromasia 1+ 09/01/19 10:00: Blood Type O NEGATIVE, Antibody Screen NEGATIVE, Crossmatch See Detail 09/01/19 10:00: Procalcitonin 0.62 H 09/01/19 11:10: POC Glucose 116 H 09/01/19 11:20: Sodium 152 H, Potassium 3.9, Chloride 122 H, Carbon Dioxide 20.0 L, Anion Gap 10, BUN 20 H, Creatinine 0.79, Estim Creat Clear Calc 101.92, Est GFR (MDRD) Af Amer 130, Est GFR (MDRD) Non-Af 107, BUN/Creatinine Ratio 25.3 H, Glucose 106, Calcium 6.9 L, Total Bilirubin 1.30 H, AST 246 H, ALT 129 H, Alkaline Phosphatase 310 H, Total Protein 6.5, Albumin 1.0 L, Globulin 5.5 H, Albumin/Globulin Ratio 0.2 L 09/01/19 11:20: PT 17.0 H, INR 1.4 09/01/19 17:55: POC Glucose 110 09/01/19 23:14: POC Glucose 75 09/02/19 04:45: WBC 11.2 H, RBC 3.08 L, Hgb 9.1 L, Hct 29.8 L, MCV 96.8 H, MCH 29.5, MCHC 30.5 L, RDW Std Deviation 56.4 H, RDW Coeff of Tio 18.1 H, Plt Count 317, MPV 10.7, Immature Gran % (Auto) 1.600 H, Neut % (Auto) 72.9 H, Lymph % (Auto) 17.6 L, [place] % (Auto) 7.3, Eos % (Auto) 0.3, Baso % (Auto) 0.3, Absolute Neuts (auto) 8.2 H, Absolute Lymphs (auto) 1.97, Nucleated RBC % 0.4, Differential Comment SCANNED, Reactive Lymphocytes 2+ 09/02/19 04:45: Sodium 149 H, Potassium 4.4, Chloride 120 H, Carbon Dioxide 24.0, Anion Gap 5, BUN 20 H, Creatinine 0.90, Estim Creat Clear Calc 89.47, Est GFR (MDRD) Af Amer 112, Est GFR (MDRD) Non-Af 93, BUN/Creatinine Ratio 22.3 H, Glucose 92, Calcium 8.0 L 09/02/19 06:23: POC Glucose 78 Current Medications Acetaminophen (Tylenol Liquid) 650 mg PO Q6H PRN PRN PRN Reason: Pain Score 1-10/10 Last Admin: 09/01/19 17:56 Dose: 650 mg Documented by: [facility]ir[facility] ([facility], [facility]) [facility] Last Admin: 09/01/19 08:21 Dose: 81 mg Documented by: Atorvastatin Calcium (Lipitor) 80 mg PO QHS REPLACED BY [facility] Last Admin: 09/01/19 22:41 Dose: 80 mg Documented by: Calamine/Phenol (Calmoseptine Ointment) 1 applic TOPICAL TID REPLACED BY [facility]; Protocol Last Admin: 09/02/19 06:10 Dose: 1 applicatio Documented by: Dextrose (D50w Syringe) 0 gm IV X1 PRN; Protocol PRN Reason: Hypoglycemia Diazepam (Valium) 5 mg PO Q6H PRN PRN PRN Reason: SPASMS Last Admin: 09/02/19 01:51 Dose: 5 mg Documented by: Diltiazem HCl (Cardizem) 60 mg PO Q8 REPLACED BY [facility] Last Admin: 09/02/19 06:23 Dose: 60 mg Documented by: Enoxaparin Sodium (Lovenox) 40 mg SC DAILY REPLACED BY [facility] Last Admin: 09/01/19 08:37 Dose: 40 mg Documented by: Fenofibrate (Tricor) 145 mg PO DAILY REPLACED BY [facility] Last Admin: 09/01/19 08:21 Dose: 145 mg Documented by: Folic Acid (Folic Acid) 1 mg PO DAILYCM REPLACED BY [facility] Last Admin: 09/01/19 08:20 Dose: 1 mg Documented by: Glucagon () 1 mg IM .X1 PRN PRN Reason: Hypoglycemia Meropenem 1 gm/ Sodium (Chloride) 120 mls @ 33 mls/hr IV Q8 REPLACED BY [facility] Last Admin: 09/02/19 06:12 Dose: 33 mls/hr Documented by: Sodium Chloride () 250 mls @ 15 mls/hr IV .[id number] PRN PRN Reason: Saline Flush Last Infusion: 08/31/19 05:11 Dose: 0 mls/hr Documented by: Sodium Chloride () 250 mls @ 15 mls/hr IV .[id number] PRN PRN Reason: Additional IVPB Infusion Eravacycline 125 mg/ Sodium (Chloride) 262.5 mls @ 262.5 mls/hr IV Q12 REPLACED BY [facility] Last Infusion: 09/01/19 23:35 Dose: Infused Documented by: Daptomycin 1,000 mg/ Sodium (Chloride) 70 mls @ 140 mls/hr IV Q24 REPLACED BY [facility] Last Infusion: 09/01/19 12:16 Dose: Infused Documented by: Micafungin Sodium 100 mg/ (Dextrose) 105 mls @ 100 mls/hr IV Q24 REPLACED BY [facility] Last Infusion: 09/01/19 15:53 Dose: Infused Documented by: Pantoprazole Sodium 40 mg/ (Sodium Chloride) 110 mls @ 330 mls/hr IV Q12 REPLACED BY [facility] Last Infusion: 09/01/19 22:51 Dose: Infused Documented by: Dextrose () 1,000 mls @ 150 mls/hr IV .Q6H40M REPLACED BY [facility] Last Admin: 09/02/19 08:08 Dose: 150 mls/hr Documented by: Insulin Human Lispro (Humalog Kwikpen (Bkc)) 0 unit SC Q6H REPLACED BY [facility]; Protocol Last Admin: 09/02/19 06:24 Dose: Not Given Documented by: Lactobacillus Acidophilus (Acidophilus) 2 tablet PO DAILY REPLACED BY [facility] Last Admin: 09/01/19 08:20 Dose: 2 tablet Documented by: Metoprolol Tartrate (Lopressor (Beta Dana)) 100 mg PO BID REPLACED BY [facility] Last Admin: 09/01/19 22:40 Dose: 100 mg Documented by: Nystatin (Mycostatin Powder) 1 applic TOPICAL BID REPLACED BY [facility]; Protocol Last Admin: 09/01/19 22:24 Dose: 1 applicatio Documented by: Potassium Chloride (Potassium Chl Soln) 20 meq PO BIDCM REPLACED BY [facility] Last Admin: 09/01/19 17:56 Dose: 20 meq Documented by: Promethazine HCl (Phenergan Tablet) 25 mg PO Q4H PRN PRN PRN Reason: NAUSEA/VOMITING Sodium Chloride () 10 - 40 ml IV UD PRN PRN Reason: SALINE FLUSH Last Admin: 09/02/19 06:07 Dose: 30 ml Documented by: Sodium Hypochlorite (Dakins Solution 0.25% (1/2 Strength)) 1 applic TOPICAL BID REPLACED BY [facility]; Protocol Last Admin: 09/01/19 22:23 Dose: 1 applicatio Documented by: Valproic Acid (Depakene) 750 mg PO TID REPLACED BY [facility] Last Admin: 09/02/19 06:23 Dose: 750 mg Documented by: Medical Necessity - Tobacco Use Smoking Status: Current every day smoker Assessment/Plan All Active Problems (Last Updated 08/25/19 @ 08:[address] Samina Heredia MD) Septic shock (Acute) Cecum perforation (Acute) Multiple drug resistant Acinetobacter infection (Acute) Methicillin resistant Staphylococcus aureus infection (Acute) Severe sepsis (Acute) Sacral wound (Acute) UTI (urinary tract infection) (Acute) This is a 59 years old male patient presented to the emergency room from the [place] [facility] because of change in mental status, found to have septic shock secondary to stage IV infected sacral decubitus ulcer, underwent excision with partial ostectomy for osteomyelitis complicated by bacteremia and candidemia, underwent diverting colostomy which was complicated by perforation of the cecum status post laparoscopic ileocecectomy with primary anastomosis. #1 Septic shock: Remains on IV daptomycin, eravacycline and meropenem as well as IV micafungin. Still having spikes of fever, WBC is trending down. Blood pressure and heart rate are maintained, pulse ox is 96% on 4 L of oxygen. Lactic acid was 5.3, came down to 4.5. Repeat chest x-ray done and showed no acute findings. CT scan abdomen also done yesterday and reviewed. Plan: Continue same treatment, we can transfer patient to PCU if ICU bed is needed. #2 polymicrobial infected stage IV sacral decubitus ulcer/osteomyelitis: Status post excision and partial ostectomy for osteomyelitis, postoperative day 14. He remained on the same IV antibiotics as mentioned above. Wound culture revealed E. coli, Proteus mirabilis, Providencia stuartii and MRSA as well as vancomycin resistant Enterococcus faecium. Infectious disease on the case. Plan to have Dr. Nguyễn reevaluate the patient's sacral ulcer today. #3 Enterobacter cloacae/staph epidermidis bacteremia: Remained on IV daptomycin, meropenem and ERAVACYCLINE. Repeat blood culture revealed yeastlike organism, he is on IV micafungin. Repeat blood culture from August 28, 2019 showed no growth in 48 hours. Another repeat blood culture done today. Awaiting infectious disease recommendation about this new change. #4 candidemia: He is on IV micafungin. He has been afebrile overnight, WBC is trending down. PICC line was removed. Repeat blood culture that was done on August 29 showed no growth in 48 hours. Another repeat blood culture done yesterday and it is pending. Plan to continue same treatment. #5 acute complicated cystitis: In the setting of chronic indwelling Chakraborty catheter. Patient was on IV antibiotics and antifungal. Culture revealed presumptive Lilliam albicans. #6 acute metabolic encephalopathy: Attributed to septic shock, initially patient was in severe sepsis. He remained alert but disoriented. #7 status post diversion colostomy: That was complicated by perforation of the cecum, status post laparoscopic ileocecectomy and primary stenosis. General surgery on the case. Repeat CT scan abdomen and pelvis with IV contrast done yesterday, findings reviewed. General surgery on the case. #8 acute on chronic anemia: Hemoglobin has been around 8 to 9 g/dL since admission. It came down to 6.7 yesterday. Patient received 2 units of packed RBCs and potassium level is 9.1 g/dL. It is improving. There is no obvious active bleeding but this could be due to stress gastritis as his stool came back positive for occult blood. Plan to monitor. #9 elevated LFT: Likely due to septic shock. No right upper quadrant tenderness. Liver transaminases are trending down as well as bilirubin. #10 hypernatremia/hypokalemia: Today sodium is 152, potassium 3.9. He has been off IV fluids. #11 type 2 diabetes mellitus: Blood sugar has been stable. He is on sliding scale only. Metformin held. #12 seizure disorder: Stable, continue p.o. valproic acid. #13 hypertension: Blood pressure is maintained at this time, continue metoprolol. #14 CAD status post CABG: Stable, no acute issues. Continue aspirin, statins, beta-blockers. #15 paroxysmal atrial fibrillation: Heart rate is down to around 90s continue Cardizem and metoprolol for rate control. He is not on anticoagulation. #16 DVT prophylaxis: Subcu Lovenox. This note was generated with [employer] dictation software. It may contain incorrect words, spelling, and punctuation that were not noted in checking the note before signing. Inpatient E&M: [address] [facility] L3
--- NOTE | 2019-09-02 09:27 | PN.SURG_ITS ---
Patient Problems: Active and Suspected Problems (Last Updated 08/25/19 @ 08:[address] Samina Heredia MD) Cecum perforation (Acute) Severe sepsis (Acute) Sacral wound (Acute) UTI (urinary tract infection) (Acute) Subjective: The patient had no issues overnight - Physical Exam Vitals/I&O's: Vital Signs Temp Pulse Resp BP Pulse Ox 100.8 F H 86 22 H 123/81 H 96 09/02/19 06:00 09/02/19 06:00 09/02/19 06:00 09/02/19 06:00 09/02/19 07:00 Oxygen Flow Rate (L/min) 2 Oxygen Delivery Method Nasal Cannula Weight: 283 lb 15.286 oz Body Mass Index (BMI) 43.0 Finger Stick Blood Glucose 191 Intake and Output for Last 24 Hours 08/31/19 09/01/19 09/02/19 23:59 23:59 23:59 Intake Total 4143.75 / 4143.75 5951.25 / 6151.25 1437.5 / 1437.5 Output Total 5550 / 5550 2350 / 3100 1700 / 1700 Balance -1406.25 / -1406.25 3601.25 / 3051.25 -262.5 / -262.5 General: Alert, No apparent distress, Confused HEENT: Atraumatic Neck: No JVD Lungs: Normal air movement Abdomen: Soft, Non Tender, Non-Distended Microbiology Past 72 Hours 09/01/19 07:30 Urine Catheter - Chakraborty Urine Culture - Preliminary Yeast Like Organism 08/29/19 17:20 Other - Pic Miscellaneous Culture - Final Staphylococcus epidermidis 08/29/19 17:20 Other - Pic Gram Stain - Final 09/01/19 10:00 Stool Stool Occult Blood (GEETA) - Final Occult Blood Positive 08/30/19 05:56 Blood Culture (Wb) - Left Hand Blood Culture - Preliminary No growth in 48 hours. 08/31/19 10:45 Stool C. difficile DNA Amplification - Final 08/29/19 14:10 Blood Culture (Wb) - Left Hand Blood Culture - Preliminary No growth in 48 hours. 08/25/19 Unknown Blood Culture (Wb) - Arm Right Blood Culture - Preliminary Yeast Like Organism 08/28/19 09:46 Blood Culture (Wb) - Left Hand Blood Culture - Preliminary No growth in 48 hours. 08/28/19 09:40 Blood Culture (Wb) - Other Blood Culture - Preliminary No growth in 48 hours. Laboratory Results 08/30/19 05:56: Diff Path Review Reviewed 09/01/19 07:55: COVID-19 (ZHEN) Negative 09/01/19 10:00: Blood Type O NEGATIVE, Antibody Screen NEGATIVE, Crossmatch See Detail 09/01/19 10:00: Procalcitonin 0.62 H 09/01/19 11:10: POC Glucose 116 H 09/01/19 11:20: Sodium 152 H, Potassium 3.9, Chloride 122 H, Carbon Dioxide 20.0 L, Anion Gap 10, BUN 20 H, Creatinine 0.79, Estim Creat Clear Calc 101.92, Est GFR (MDRD) Af Amer 130, Est GFR (MDRD) Non-Af 107, BUN/Creatinine Ratio 25.3 H, Glucose 106, Calcium 6.9 L, Total Bilirubin 1.30 H, AST 246 H, ALT 129 H, Alkaline Phosphatase 310 H, Total Protein 6.5, Albumin 1.0 L, Globulin 5.5 H, Albumin/Globulin Ratio 0.2 L 09/01/19 11:20: PT 17.0 H, INR 1.4 09/01/19 17:55: POC Glucose 110 09/01/19 23:14: POC Glucose 75 09/02/19 04:45: WBC 11.2 H, RBC 3.08 L, Hgb 9.1 L, Hct 29.8 L, MCV 96.8 H, MCH 29.5, MCHC 30.5 L, RDW Std Deviation 56.4 H, RDW Coeff of Tio 18.1 H, Plt Count 317, MPV 10.7, Immature Gran % (Auto) 1.600 H, Neut % (Auto) 72.9 H, Lymph % (Auto) 17.6 L, [place] % (Auto) 7.3, Eos % (Auto) 0.3, Baso % (Auto) 0.3, Absolute Neuts (auto) 8.2 H, Absolute Lymphs (auto) 1.97, Nucleated RBC % 0.4, Differential Comment SCANNED, Reactive Lymphocytes 2+ 09/02/19 04:45: Sodium 149 H, Potassium 4.4, Chloride 120 H, Carbon Dioxide 24.0, Anion Gap 5, BUN 20 H, Creatinine 0.90, Estim Creat Clear Calc 89.47, Est GFR (MDRD) Af Amer 112, Est GFR (MDRD) Non-Af 93, BUN/Creatinine Ratio 22.3 H, Glucose 92, Calcium 8.0 L 09/02/19 06:23: POC Glucose 78 Current Medications Acetaminophen (Tylenol Liquid) 650 mg PO Q6H PRN PRN PRN Reason: Pain Score 1-10/10 Last Admin: 09/01/19 17:56 Dose: 650 mg Documented by: Aspirin ([facility], Baby) [facility] Last Admin: 09/01/19 08:21 Dose: 81 mg Documented by: Atorvastatin Calcium (Lipitor) 80 mg PO QHS [facility] Last Admin: 09/01/19 22:41 Dose: 80 mg Documented by: Calamine/Phenol (Calmoseptine Ointment) 1 applic TOPICAL TID [facility]; Protocol Last Admin: 09/02/19 06:10 Dose: 1 applicatio Documented by: Dextrose (D50w Syringe) 0 gm IV X1 PRN; Protocol PRN Reason: Hypoglycemia Diazepam (Valium) 5 mg PO Q6H PRN PRN PRN Reason: SPASMS Last Admin: 09/02/19 01:51 Dose: 5 mg Documented by: Diltiazem HCl (Cardizem) 60 mg PO Q8 [facility] Last Admin: 09/02/19 06:23 Dose: 60 mg Documented by: Enoxaparin Sodium (Lovenox) 40 mg SC DAILY [facility] Last Admin: 09/01/19 08:37 Dose: 40 mg Documented by: Fenofibrate (Tricor) 145 mg PO DAILY [facility] Last Admin: 09/01/19 08:21 Dose: 145 mg Documented by: Folic Acid (Folic Acid) [facility] Last Admin: 09/01/19 08:20 Dose: 1 mg Documented by: Glucagon () 1 mg IM .X1 PRN PRN Reason: Hypoglycemia Meropenem 1 gm/ Sodium (Chloride) 120 mls @ 33 mls/hr IV Q8 [facility] Last Admin: 09/02/19 06:12 Dose: 33 mls/hr Documented by: Sodium Chloride () 250 mls @ 15 mls/hr IV .[id number] PRN PRN Reason: Saline Flush Last Infusion: 08/31/19 05:11 Dose: 0 mls/hr Documented by: Sodium Chloride () 250 mls @ 15 mls/hr IV .[id number] PRN PRN Reason: Additional IVPB Infusion Eravacycline 125 mg/ Sodium (Chloride) 262.5 mls @ 262.5 mls/hr IV Q12 [facility] Last Infusion: 09/01/19 23:35 Dose: Infused Documented by: Daptomycin 1,000 mg/ Sodium (Chloride) 70 mls @ 140 mls/hr IV Q24 [facility] Last Infusion: 09/01/19 12:16 Dose: Infused Documented by: Micafungin Sodium 100 mg/ (Dextrose) 105 mls @ 100 mls/hr IV Q24 [facility] Last Infusion: 09/01/19 15:53 Dose: Infused Documented by: Pantoprazole Sodium 40 mg/ (Sodium Chloride) 110 mls @ 330 mls/hr IV Q12 [facility] Last Infusion: 09/01/19 22:51 Dose: Infused Documented by: Dextrose () 1,000 mls @ 150 mls/hr IV .Q6H40M [facility] Last Admin: 09/02/19 08:08 Dose: 150 mls/hr Documented by: Insulin Human Lispro (Humalog Kwikpen (Bkc)) 0 unit SC Q6H [facility]; Protocol Last Admin: 09/02/19 06:24 Dose: Not Given Documented by: Lactobacillus Acidophilus (Acidophilus) 2 tablet PO DAILY [facility] Last Admin: 09/01/19 08:20 Dose: 2 tablet Documented by: Metoprolol Tartrate (Lopressor (Beta Dana)) 100 mg PO BID [facility] Last Admin: 09/01/19 22:40 Dose: 100 mg Documented by: Nystatin (Mycostatin Powder) 1 applic TOPICAL BID [facility]; Protocol Last Admin: 09/01/19 22:24 Dose: 1 applicatio Documented by: Potassium Chloride (Potassium Chl Soln) 20 meq PO BIDCM [facility] Last Admin: 09/01/19 17:56 Dose: 20 meq Documented by: Promethazine HCl (Phenergan Tablet) 25 mg PO Q4H PRN PRN PRN Reason: NAUSEA/VOMITING Sodium Chloride () 10 - 40 ml IV UD PRN PRN Reason: SALINE FLUSH Last Admin: 09/02/19 06:07 Dose: 30 ml Documented by: Sodium Hypochlorite (Dakins Solution 0.25% (1/2 Strength)) 1 applic TOPICAL BID [facility]; Protocol Last Admin: 09/01/19 22:23 Dose: 1 applicatio Documented by: Valproic Acid (Depakene) 750 mg PO TID [facility] Last Admin: 09/02/19 06:23 Dose: 750 mg Documented by: Medical Necessity - Tobacco Use Smoking Status: Current every day smoker Assessment/Plan All Active Problems (Last Updated 08/25/19 @ 08:[address] Samina Heredia MD) Septic shock (Acute) Cecum perforation (Acute) Multiple drug resistant Acinetobacter infection (Acute) Methicillin resistant Staphylococcus aureus infection (Acute) Severe sepsis (Acute) Sacral wound (Acute) UTI (urinary tract infection) (Acute) 59-year-old male with sepsis 1. Patient is still having good output from his colostomy. He is not having any abdominal pain but he is confused. He does follow some basic commands but he is not oriented. 2. Patient's fecal occult blood came back positive yesterday and he did adequately respond to his transfusion. I believe he likely has stress gastritis as he has not tolerated much of a diet. He was started on a PPI twice daily and I will continue to trend his hemoglobin. 3. The patient's nutritional status is an issue. I believe he is not taking much in orally. It may be worth it to try replacing an NG and seeing if he will leave it in order to do tube feeds and oral medications. I am not very keen on the idea of putting a PEG tube in at this time due to the likelihood of the patient pulling it out but it might become necessary. 4. She has yeast growing in his urine and he had yeast in his bloodstream last week. He is on multiple antibiotics and ID is involved. Jared Crystal MD Pager: [facility] [address] [place] [address], [address] [place] [address] Office:
[2019-09-02] MEDS: DAKIN'S SOL HALF STRENGTH (=0.25%) 1 APPLIC TOPICAL ×2 (10:03→21:28)
--- NOTE | 2019-09-02 10:37 | NURSING ---
wound photo: mid abdomen
--- NOTE | 2019-09-02 10:39 | NURSING ---
wound photo: right lower abdomen
--- NOTE | 2019-09-02 10:39 | NURSING ---
wound photo: sacrum
[2019-09-02] MEDS: Folic Acid 1 MG Tablet PO (10:44)
[2019-09-02] MEDS: Juven (unflavored) Packet 1 PACKET PO ×2 (10:44→16:59)
[2019-09-02] MEDS: Aspirin 81 MG TAB.CHEW PO (10:45)
[2019-09-02] MEDS: Enoxaparin 40 MG/0.4 ML Syringe SC (10:45)
[2019-09-02] MEDS: Metoprolol Tartrate 100 MG Tablet PO ×2 (10:45→21:12)
[2019-09-02] MEDS: Fenofibrate 145 MG Tablet PO (10:45)
[2019-09-02] MEDS: Nystatin Powder 15gm Bottle 1 APPLIC TOPICAL ×2 (10:48→21:28)
[2019-09-02 11:45] LABS: Bedside Glucose 79 mg/dL (70-110)
[2019-09-02 12:15] LABS: Pathologist Review Reviewed
--- NOTE | 2019-09-02 15:47 | PCM.PN.ID ---
Patient Problems: Active and Suspected Problems (Last Updated 08/25/19 @ 08:[address] Samina Heredia MD) Cecum perforation (Acute) Severe sepsis (Acute) Sacral wound (Acute) UTI (urinary tract infection) (Acute) Subjective: Feeling better, mild abd soreness, no dyspnea, no fever - Physical Exam Vitals/I&O's: Vital Signs Temp Pulse Resp BP Pulse Ox 100.6 F H 92 31 H 122/78 H 94 09/02/19 14:00 09/02/19 15:00 09/02/19 15:00 09/02/19 15:00 09/02/19 15:00 Oxygen Flow Rate (L/min) 1 Oxygen Delivery Method Room Air Weight: 128.8 kg Body Mass Index (BMI) 43.0 Finger Stick Blood Glucose 191 Intake and Output for Last 24 Hours 08/31/19 09/01/19 09/02/19 23:59 23:59 23:59 Intake Total 4143.75 / 4143.75 5951.25 / 6151.25 2750.0 / 2750.0 Output Total 5550 / 5550 2350 / 3100 2300 / 2300 Balance -1406.25 / -1406.25 3601.25 / 3051.25 450.0 / 450.0 General: Alert, Cooperative, No apparent distress Lungs: Clear to auscultation, Normal air movement Cardiovascular: Regular rate, Regular Rhythm Abdomen: Soft, Non Tender, Non-Distended Skin: No rashes Microbiology Past 72 Hours 08/28/19 09:46 Blood Culture (Wb) - Left Hand Blood Culture - Final No growth in 5 days. 08/28/19 09:40 Blood Culture (Wb) - Other Blood Culture - Final No growth in 5 days. 09/01/19 07:30 Urine Catheter - Coyne Urine Culture - Final Lilliam albicans 08/29/19 17:20 Other - Pic Miscellaneous Culture - Final Staphylococcus epidermidis 08/29/19 17:20 Other - Pic Gram Stain - Final 09/01/19 10:00 Stool Stool Occult Blood (GEETA) - Final Occult Blood Positive 08/30/19 05:56 Blood Culture (Wb) - Left Hand Blood Culture - Preliminary No growth in 48 hours. 08/31/19 10:45 Stool C. difficile DNA Amplification - Final 08/29/19 14:10 Blood Culture (Wb) - Left Hand Blood Culture - Preliminary No growth in 48 hours. 08/25/19 Unknown Blood Culture (Wb) - Arm Right Blood Culture - Preliminary Yeast Like Organism Laboratory Results 09/01/19 08:00: Diff Path Review Reviewed 09/01/19 10:00: Blood Type O NEGATIVE, Antibody Screen NEGATIVE, Crossmatch See Detail 09/01/19 17:55: POC Glucose 110 09/01/19 23:14: POC Glucose 75 09/02/19 04:45: WBC 11.2 H, RBC 3.08 L, Hgb 9.1 L, Hct 29.8 L, MCV 96.8 H, MCH 29.5, MCHC 30.5 L, RDW Std Deviation 56.4 H, RDW Coeff of Tio 18.1 H, Plt Count 317, MPV 10.7, Immature Gran % (Auto) 1.600 H, Neut % (Auto) 72.9 H, Lymph % (Auto) 17.6 L, [place] % (Auto) 7.3, Eos % (Auto) 0.3, Baso % (Auto) 0.3, Absolute Neuts (auto) 8.2 H, Absolute Lymphs (auto) 1.97, Nucleated RBC % 0.4, Differential Comment SCANNED, Reactive Lymphocytes 2+ 09/02/19 04:45: Sodium 149 H, Potassium 4.4, Chloride 120 H, Carbon Dioxide 24.0, Anion Gap 5, BUN 20 H, Creatinine 0.90, Estim Creat Clear Calc 89.47, Est GFR (MDRD) Af Amer 112, Est GFR (MDRD) Non-Af 93, BUN/Creatinine Ratio 22.3 H, Glucose 92, Calcium 8.0 L 09/02/19 06:23: POC Glucose 78 09/02/19 11:40: POC Glucose 79 Current Medications Acetaminophen (Tylenol Liquid) 650 mg PO Q6H PRN PRN PRN Reason: Pain Score 1-11/14 Last Admin: 09/01/19 17:56 Dose: 650 mg Documented by: Aspir[facility] ([facility], Baby) [facility] Last Admin: 09/02/19 10:45 Dose: 81 mg Documented by: Atorvastatin Calcium (Lipitor) 80 mg PO QHS [facility] Last Admin: 09/01/19 22:41 Dose: 80 mg Documented by: Calamine/Phenol (Calmoseptine Ointment) 1 applic TOPICAL TID [facility]; Protocol Last Admin: 09/02/19 14:06 Dose: 1 applicatio Documented by: Dextrose (D50w Syringe) 0 gm IV X1 PRN; Protocol PRN Reason: Hypoglycemia Diazepam (Valium) 5 mg PO Q6H PRN PRN PRN Reason: SPASMS Last Admin: 09/02/19 01:51 Dose: 5 mg Documented by: Diltiazem HCl (Cardizem) 60 mg PO Q8 [facility] Last Admin: 09/02/19 14:10 Dose: 60 mg Documented by: Enoxaparin Sodium (Lovenox) 40 mg SC DAILY [facility] Last Admin: 09/02/19 10:45 Dose: 40 mg Documented by: Fenofibrate (Tricor) 145 mg PO DAILY [facility] Last Admin: 09/02/19 10:45 Dose: 145 mg Documented by: Folic Acid (Folic Acid) 1 mg PO DAILYCM [facility] Last Admin: 09/02/19 10:44 Dose: 1 mg Documented by: Glucagon () 1 mg IM .X1 PRN PRN Reason: Hypoglycemia Meropenem 1 gm/ Sodium (Chloride) 120 mls @ 33 mls/hr IV Q8 [facility] Last Admin: 09/02/19 14:06 Dose: 33 mls/hr Documented by: Sodium Chloride () 250 mls @ 15 mls/hr IV .[id number] PRN PRN Reason: Saline Flush Last Infusion: 08/31/19 05:11 Dose: 0 mls/hr Documented by: Sodium Chloride () 250 mls @ 15 mls/hr IV .[id number] PRN PRN Reason: Additional IVPB Infusion Eravacycline 125 mg/ Sodium (Chloride) 262.5 mls @ 262.5 mls/hr IV Q12 [facility] Last Infusion: 09/02/19 11:46 Dose: Infused Documented by: Daptomycin 1,000 mg/ Sodium (Chloride) 70 mls @ 140 mls/hr IV Q24 [facility] Last Infusion: 09/02/19 12:06 Dose: Infused Documented by: Micafungin Sodium 100 mg/ (Dextrose) 105 mls @ 100 mls/hr IV Q24 [facility] Last Infusion: 09/02/19 11:53 Dose: Infused Documented by: Pantoprazole Sodium 40 mg/ (Sodium Chloride) 110 mls @ 330 mls/hr IV Q12 [facility] Last Infusion: 09/02/19 11:03 Dose: Infused Documented by: Dextrose () 1,000 mls @ 150 mls/hr IV .Q6H40M [facility] Last Infusion: 09/02/19 12:33 Dose: 150 mls/hr Documented by: Insulin Human Lispro (Humalog Kwikpen (Bkc)) 0 unit SC Q6H [facility]; Protocol Last Admin: 09/02/19 11:44 Dose: Not Given Documented by: Lactobacillus Acidophilus (Acidophilus) 2 tablet PO DAILY [facility] Last Admin: 09/02/19 10:45 Dose: 2 tablet Documented by: Metoprolol Tartrate (Lopressor (Beta Dana)) 100 mg PO BID [facility] Last Admin: 09/02/19 10:45 Dose: 100 mg Documented by: Nystatin (Mycostatin Powder) 1 applic TOPICAL BID [facility]; Protocol Last Admin: 09/02/19 10:48 Dose: 1 applicatio Documented by: Potassium Chloride (Potassium Chl Soln) 20 meq PO BIDCM [facility] Last Admin: 09/02/19 10:45 Dose: 20 meq Documented by: Promethazine HCl (Phenergan Tablet) 25 mg PO Q4H PRN PRN PRN Reason: NAUSEA/VOMITING Sodium Chloride () 10 - 40 ml IV UD PRN PRN Reason: SALINE FLUSH Last Admin: 09/02/19 06:07 Dose: 30 ml Documented by: Sodium Hypochlorite (Dakins Solution 0.25% (1/2 Strength)) 1 applic TOPICAL BID [facility]; Protocol Last Admin: 09/02/19 10:03 Dose: 1 applicatio Documented by: Valproic Acid (Depakene) 750 mg PO TID [facility] Last Admin: 09/02/19 14:10 Dose: 750 mg Documented by: Medical Necessity - Tobacco Use Smoking Status: Current every day smoker Route of nutrition/ use of supplements: [] Nutritional Intake: [] IV Site: [] Coyne Catheter: [] - Assessment/Plan Antibiotics: [] Assessment/Plan: [] Active and Suspected Problems (Last Updated 12/07/17 @ 08:57 by Shira Conte) Severe sepsis (Acute) Sacral wound (Acute) UTI (urinary tract infection) (Acute) severe sepsis with polymicrobial bacteremia, 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 OR 08/[address] Nguyễn for I&D. OR 08/[address] Crystal for diverting ostomy. On linezolid/gudelia/eravacycline. Wbc much improved. Wound cx with providencia, VRE, XDR Acinetobacter, MRSA, proteus. Bcx with enterobacter x2 and MRSE. Spoke with micro lab and requested additional susc testing for the AcB. VRE was R to linezolid, had fever, so 08/24 changed linezolid to dapto. Developed new yeast in bcx 08/24. Started micafungin, picc was removed and replaced. No veg seen on TTE, but poor quality study. AM of 08/31, moved back to ICU with fever, lactic acidosis, drop in hgb, rising wbc. Bcx repeat, CT done, seen by pulm and surgery. Denies cough or SOB. No abd pain, no neck pain or headache. Repeat covid was neg. It sounds like last night nurse was able to advance his coyne. Not clear why he worsened yesterday, but today fever curve steadily improving, wbc improved, off of oxygen, and mental status much better. Will follow, d/w nursing
[2019-09-02] MEDS: Acetaminophen 650 MG/20 ML UDC PO ×2 (16:59→23:05)
[2019-09-02 17:30] LABS: Bedside Glucose 106 mg/dL (70-110)
--- NOTE | 2019-09-02 18:10 | NURSING ---
report called to Rupert WRIGHTU RN
[2019-09-02] MEDS: Atorvastatin Calcium 80 MG Tablet PO (21:12)
[2019-09-03] VITALS (29 sets, daily range): BP systolic 105–141; BP diastolic 60–98; PULSE 76–112; RESP 14–38; TEMP 37.9–38.6; O2SAT 88–100
[2019-09-03] LABS: Bedside Glucose 91 mg/dL (70-110)
[2019-09-03] MEDS: Menthol/Lanolin/Calamine/Znox 113 GM Tube 1 APPLIC TOPICAL ×3 (05:01→21:26)
[2019-09-03] MEDS: Valproic Acid 250 MG/5 ML UDC 750 MG PO ×3 (05:02→22:03)
[2019-09-03] MEDS: dilTIAZem 30 MG Tablet 60 MG PO ×3 (05:02→21:48)
[2019-09-03] MEDS: Acetaminophen 650 MG/20 ML UDC PO ×3 (05:05→17:58)
[2019-09-03 06:20] LABS: Bedside Glucose 95 mg/dL (70-110)
[2019-09-03 06:38] LABS: Absolute Lymphocyte Count 2.02 X10^3/uL (0.83-4.51); Absolute Neutrophil Count 7.8 X10^3/uL (2.0-7.7); Basophil# 0.03 X10^3/uL; Basophil% 0.3 % (0-1); Eosinophil# 0.03 X10^3/uL; Eosinophils% 0.3 % (0-5); Hematocrit 33.2 % (40-54); Hemoglobin 10.2 g/dL (13.0-16.5); Lymphocyte # 2.02 X10^3/ul (4.0); Lymphocyte % 18.8 % (19-41); Mean Corp Hgb Conc 30.7 g/dL (32-36); Mean Corpuscular Hgb 29.6 pg (27.0-32.0); Mean Corpuscular Volume 96.2 fL (80-94); Mean Platelet Vol. 10.4 fl (6.2-12.0); Monocyte# 0.69 X10^3/uL; Monocyte% 6.4 % (0-10); NRBC Flagged by Analyzer 0.6 % (0-5); Neutrophil % 72.7 % (47-70); POSITIVE MORPHOLOGY YES; Platelet Count 351 K/mm3 (150-450); RBC Distribution Width CV 18.3 % (11.6-14.6); RBC Distribution Width SD 58.5 fl (35.1-43.9); Red Blood Count 3.45 M/mm3 (4.6-6.2); White Blood Count 10.7 K/mm3 (4.4-11.0)
[2019-09-03 06:40] LABS: Differential Indicated SCAN CRITERIA MET
--- NOTE | 2019-09-03 06:51 | NURSING ---
Martha Ovalle, pt's POA, called in this AM; updated by this RN and would like called by dayshift with update as well
[2019-09-03 06:56] LABS: Differential Comment SCANNED; Reactive Lymphocyte RARE
[2019-09-03 06:59] LABS: Anion Gap 9 (5-15); BUN 23 mg/dL (7-18); BUN/Creat Ratio 21.5 RATIO (10-20); Calcium,Total 8.2 mg/dL (8.5-10.1); Chloride 117 mmol/L (98-107); Creatinine, Serum 1.07 mg/dL (0.70-1.30); EST Glomerular Filtration Rate 75 mL/min (>60); Est Glom Filt Rate - Afr Amer 91 mL/min (>60); Estimated Creatinine Clearance 75.25 ml/min; Glucose 108 mg/dL (74-106); Potassium 4.2 mmol/L (3.5-5.1); Sodium Level 145 mmol/L (136-145)
--- NOTE | 2019-09-03 09:18 | PCM.PROGNOTE ---
Patient Problems: Active and Suspected Problems (Last Updated 08/25/19 @ 08:[address] Samina Heredia MD) Cecum perforation (Acute) Severe sepsis (Acute) Sacral wound (Acute) UTI (urinary tract infection) (Acute) Subjective: Chief complaint: Follow-up after admission for septic shock, persistent fever, stage IV infected sacral decubitus ulcer/osteomyelitis status post excision with partial ostectomy for osteomyelitis, complicated by bacteremia and candidemia. Patient underwent diversion colostomy that was complicated by cecal perforation, status post laparoscopic ileocecectomy with primary anastomosis. Patient seen and examined. No acute events overnight. He is alert, awake. He complained of some abdominal pain, vague. Denied shortness of breath. He is still having spikes of low-grade fever, other vital signs are stable, pulse ox is 97% on 2 L. - Physical Exam Vitals/I&O's: Vital Signs Temp Pulse Resp BP Pulse Ox 100.8 F H 97 37 H 131/75 H 97 09/03/19 08:00 09/03/19 08:00 09/03/19 08:00 09/03/19 08:00 09/03/19 08:00 Oxygen Flow Rate (L/min) 2 Oxygen Delivery Method Nasal Cannula Weight: 272 lb 14.916 oz Body Mass Index (BMI) 43.0 Finger Stick Blood Glucose 191 Intake and Output for Last 24 Hours 09/01/19 09/02/19 09/03/19 23:59 23:59 23:59 Intake Total 5951.25 / 6151.25 5490.0 / 5490.0 1307.5 / 1307.5 Output Total 2350 / 3100 4050 / 4050 775 / 775 Balance 3601.25 / 3051.25 1440.0 / 1440.0 532.5 / 532.5 General: Alert, Cooperative, No apparent distress, Disoriented HEENT: Atraumatic, PERRLA, EOMI, Normocephalic Oral: Moist Mucosa, No Gingival or Mucosal Lesions/ Ulcerations Neck: Supple, No JVD, Negative Carotid Bruits, Trachea Midline, Thyroid Normal Size and Texture Lungs: Clear to auscultation, Normal air movement, No rhonchi, No wheeze, No rales, Diminished Cardiovascular: Regular rate, Regular Rhythm, Normal S1, Normal S2, PMI Normal Abdomen: Bowel Sounds Present, Soft, Non-Distended, No Hepato-splenomegaly, Obese, Tender, - - Colostomy bag in place. Extremities: No clubbing, No cyanosis, Edema Skin: No rashes, No breakdown, Incision Lymphatic: No Cervical, Supraclavicular, or Inguinal Adenopathy Neurological: Cranial nerves II-XII grossly intact, Neuro grossly intact Psych/Mental Status: Flat Affect Microbiology Past 72 Hours 09/01/19 03:20 Blood Culture (Wb) - Anticubital Right Blood Culture - Preliminary No growth in 48 hours. 09/01/19 Unknown Blood Culture (Wb) - Right Forearm Blood Culture - Preliminary No growth in 48 hours. 08/28/19 09:46 Blood Culture (Wb) - Left Hand Blood Culture - Final No growth in 5 days. 08/28/19 09:40 Blood Culture (Wb) - Other Blood Culture - Final No growth in 5 days. 09/01/19 07:30 Urine Catheter - Chakraborty Urine Culture - Final Lilliam albicans 08/29/19 17:20 Other - Pic Miscellaneous Culture - Final Staphylococcus epidermidis 08/29/19 17:20 Other - Pic Gram Stain - Final 09/01/19 10:00 Stool Stool Occult Blood (GEETA) - Final Occult Blood Positive 08/30/19 05:56 Blood Culture (Wb) - Left Hand Blood Culture - Preliminary No growth in 48 hours. 08/31/19 10:45 Stool C. difficile DNA Amplification - Final 08/29/19 14:10 Blood Culture (Wb) - Left Hand Blood Culture - Preliminary No growth in 48 hours. Laboratory Results 09/01/19 08:00: Diff Path Review Reviewed 09/02/19 11:40: POC Glucose 79 09/02/19 17:22: POC Glucose 106 09/02/19 23:53: POC Glucose 91 09/03/19 06:11: POC Glucose 95 09/03/19 06:25: WBC 10.7, RBC 3.45 L, Hgb 10.2 L, Hct 33.2 L, MCV 96.2 H, MCH 29.6, MCHC 30.7 L, RDW Std Deviation 58.5 H, RDW Coeff of Tio 18.3 H, Plt Count 351, MPV 10.4, Immature Gran % (Auto) 1.500 H, Neut % (Auto) 72.7 H, Lymph % (Auto) 18.8 L, [place] % (Auto) 6.4, Eos % (Auto) 0.3, Baso % (Auto) 0.3, Absolute Neuts (auto) 7.8 H, Absolute Lymphs (auto) 2.02, Nucleated RBC % 0.6, Differential Comment SCANNED, Reactive Lymphocytes RARE 09/03/19 06:25: Sodium 145, Potassium 4.2, Chloride 117 H, Carbon Dioxide 19.0 L, Anion Gap 9, BUN 23 H, Creatinine 1.07, Estim Creat Clear Calc 75.25, Est GFR (MDRD) Af Amer 91, Est GFR (MDRD) Non-Af 75, BUN/Creatinine Ratio 21.5 H, Glucose 108 H, Calcium 8.2 L Current Medications Acetaminophen (Tylenol Liquid) 650 mg PO Q6H PRN PRN PRN Reason: Pain Score 1-10/10 Last Admin: 09/03/19 05:05 Dose: 650 mg Documented by: Aspirin ([facility]in, Baby) [facility] Last Admin: 09/02/19 10:45 Dose: 81 mg Documented by: Atorvastatin Calcium (Lipitor) 80 mg PO QHS [facility] Last Admin: 09/02/19 21:12 Dose: 80 mg Documented by: Calamine/Phenol (Calmoseptine Ointment) 1 applic TOPICAL TID [facility]; Protocol Last Admin: 09/03/19 05:01 Dose: 1 applicatio Documented by: Dextrose (D50w Syringe) 0 gm IV X1 PRN; Protocol PRN Reason: Hypoglycemia Diazepam (Valium) 5 mg PO Q6H PRN PRN PRN Reason: SPASMS Last Admin: 09/02/19 21:13 Dose: 5 mg Documented by: Diltiazem HCl (Cardizem) 60 mg PO Q8 [facility] Last Admin: 09/03/19 05:02 Dose: 60 mg Documented by: Enoxaparin Sodium (Lovenox) 40 mg SC DAILY [facility] Last Admin: 09/02/19 10:45 Dose: 40 mg Documented by: Fenofibrate (Tricor) 145 mg PO DAILY [facility] Last Admin: 09/02/19 10:45 Dose: 145 mg Documented by: Folic Acid (Folic Acid) [facility] Last Admin: 09/02/19 10:44 Dose: 1 mg Documented by: Glucagon () 1 mg IM .X1 PRN PRN Reason: Hypoglycemia Meropenem 1 gm/ Sodium (Chloride) 120 mls @ 33 mls/hr IV Q8 [facility] Last Admin: 09/03/19 05:00 Dose: 33 mls/hr Documented by: Sodium Chloride () 250 mls @ 15 mls/hr IV .[id number] PRN PRN Reason: Saline Flush Last Infusion: 08/31/19 05:11 Dose: 0 mls/hr Documented by: Sodium Chloride () 250 mls @ 15 mls/hr IV .[id number] PRN PRN Reason: Additional IVPB Infusion Eravacycline 125 mg/ Sodium (Chloride) 262.5 mls @ 262.5 mls/hr IV Q12 [facility] Last Infusion: 09/02/19 22:15 Dose: Infused Documented by: Daptomycin 1,000 mg/ Sodium (Chloride) 70 mls @ 140 mls/hr IV Q24 [facility] Last Infusion: 09/02/19 12:06 Dose: Infused Documented by: Micafungin Sodium 100 mg/ (Dextrose) 105 mls @ 100 mls/hr IV Q24 [facility] Last Infusion: 09/02/19 11:53 Dose: Infused Documented by: Pantoprazole Sodium 40 mg/ (Sodium Chloride) 110 mls @ 330 mls/hr IV Q12 [facility] Last Infusion: 09/02/19 21:35 Dose: Infused Documented by: Dextrose () 1,000 mls @ 150 mls/hr IV .Q6H40M [facility] Last Admin: 09/03/19 08:56 Dose: 150 mls/hr Documented by: Insulin Human Lispro (Humalog Kwikpen (Bkc)) 0 unit SC Q6H [facility]; Protocol Last Admin: 09/03/19 06:16 Dose: Not Given Documented by: Lactobacillus Acidophilus (Acidophilus) 2 tablet PO DAILY [facility] Last Admin: 09/02/19 10:45 Dose: 2 tablet Documented by: Metoprolol Tartrate (Lopressor (Beta Dana)) 100 mg PO BID [facility] Last Admin: 09/02/19 21:12 Dose: 100 mg Documented by: Nystatin (Mycostatin Powder) 1 applic TOPICAL BID [facility]; Protocol Last Admin: 09/02/19 21:28 Dose: 1 applicatio Documented by: Potassium Chloride (Potassium Chl Soln) 20 meq PO BIDCM [facility] Last Admin: 09/02/19 16:59 Dose: 20 meq Documented by: Promethazine HCl (Phenergan Tablet) 25 mg PO Q4H PRN PRN PRN Reason: NAUSEA/VOMITING Sodium Chloride () 10 - 40 ml IV UD PRN PRN Reason: SALINE FLUSH Last Admin: 09/02/19 06:07 Dose: 30 ml Documented by: Sodium Hypochlorite (Dakins Solution 0.25% (1/2 Strength)) 1 applic TOPICAL BID [facility]; Protocol Last Admin: 09/02/19 21:28 Dose: 1 applicatio Documented by: Valproic Acid (Depakene) 750 mg PO TID [facility] Last Admin: 09/03/19 05:02 Dose: 750 mg Documented by: Medical Necessity - Tobacco Use Smoking Status: Current every day smoker Assessment/Plan All Active Problems (Last Updated 08/25/19 @ 08:[address] Samina Heredia MD) Septic shock (Acute) Cecum perforation (Acute) Multiple drug resistant Acinetobacter infection (Acute) Methicillin resistant Staphylococcus aureus infection (Acute) Severe sepsis (Acute) Sacral wound (Acute) UTI (urinary tract infection) (Acute) This is a 59 years old male patient presented to the emergency room from the halfway because of change in mental status, found to have septic shock secondary to stage IV infected sacral decubitus ulcer, underwent excision with partial ostectomy for osteomyelitis complicated by bacteremia and candidemia, underwent diverting colostomy which was complicated by perforation of the cecum status post laparoscopic ileocecectomy with primary anastomosis. #1 Septic shock: Remains on IV daptomycin, eravacycline and meropenem as well as IV micafungin. Remains with spikes of low-grade fever, persistent fever. Other vital signs are stable. WBC is back to normal. Pulse ox is 94% on 2 L of oxygen, improving. Repeat chest x-ray done and showed no acute findings. CT scan abdomen also done yesterday and reviewed. Awaiting infectious disease recommendations for today. Plan: Continue same treatment, patient may need to go to LTAC upon discharge. #2 polymicrobial infected stage IV sacral decubitus ulcer/osteomyelitis: Status post excision and partial ostectomy for osteomyelitis, postoperative day 5. He remained on the same IV antibiotics as mentioned above. Wound culture revealed E. coli, Proteus mirabilis, Providencia stuartii and MRSA as well as vancomycin resistant Enterococcus faecium. Infectious disease on the case. Today, wound care nurse evaluated the wound and stated there is no evidence of infection or foul-smelling, no bleeding. Dr. Nguyễn will be seeing the patient tomorrow for evaluation. #3 Enterobacter cloacae/staph epidermidis bacteremia: Remained on IV daptomycin, meropenem and ERAVACYCLINE. Repeat blood culture revealed yeastlike organism, he is on IV micafungin. Repeat blood culture from August 28, 2019 showed no growth in 48 hours. Another repeat blood culture from August 31 also showed no growth in 48 hours. Infectious disease on the case, awaiting input today. #4 candidemia: He is on IV micafungin. He has been having persistent low-grade fever, WBC is back to normal. Repeat blood culture that was done on August 29 showed no growth in 48 hours. Another repeat blood culture done on September 01, 2019 and showed no growth in 48 hours. Plan as above. #5 acute complicated cystitis: In the setting of chronic indwelling Chakraborty catheter. Patient was on IV antibiotics and antifungal. Culture revealed presumptive Lilliam albicans. #6 acute metabolic encephalopathy: Attributed to septic shock, he remained alert, confused and disoriented. #7 status post diversion colostomy: That was complicated by perforation of the cecum, status post laparoscopic ileocecectomy and primary stenosis. General surgery on the case. Repeat CT scan abdomen and pelvis with IV contrast done yesterday, findings reviewed. Patient is tolerating diet. Watery stool in the colostomy bag, working properly. General surgery on the case. #8 acute on chronic anemia: Hemoglobin has been around 8 to 9 g/dL since admission. It came down to 6.7 yesterday. Patient received 2 units of packed RBCs and today's hemoglobin is 10.2 g/dL. There is no obvious active bleeding but this could be due to stress gastritis as his stool came back positive for occult blood. Plan to monitor. #9 elevated LFT: Likely due to septic shock. No right upper quadrant tenderness. Liver transaminases are trending down as well as bilirubin. #10 hypernatremia/hypokalemia: Today sodium is 145, potassium 4.2. Patient is tolerating diet. #11 type 2 diabetes mellitus: Blood sugar has been stable. He is on sliding scale only. Metformin held. #12 seizure disorder: Stable, continue p.o. valproic acid. #13 hypertension: Blood pressure is stable, continue metoprolol. #14 CAD status post CABG: Stable, no acute issues. Continue aspirin, statins, beta-blockers. #15 paroxysmal atrial fibrillation: Heart rate is down to around 90s continue Cardizem and metoprolol for rate control. He is not on anticoagulation. #16 DVT prophylaxis: Subcu Lovenox. This note was generated with [employer]andid dictation software. It may contain incorrect words, spelling, and punctuation that were not noted in checking the note before signing. Inpatient E&M: 69644 Subs Hosp L2
--- NOTE | 2019-09-03 09:42 | CASEMGMT ---
Addendum entered by Kay Oliveira 09/03/19 14:21: Per Dr. Garcia, pt will be on about 4 more weeks of the 3 antibx and the anti-fungal. Call back to Jocelynn at [facility] and updated at this time, voices understanding. Call to Kirstin at [facility] [phone] to try and obtain HPOA paperwork at this time and she states that she will call this RN CM back after she speaks with their SW. Martha Yamile did verify to this RN CAMILO this am on the phone that she is pt's HPOA and she has paperwork regarding same. Jocelynn states to update her when pt medically ready. Jocelynn states that they are verifying pt's insurance at this time. Cyndi MOCTEZUMA CM Addendum entered by Kay Oliveira 09/03/19 14:01: Call from Jocelynn at [facility] and she states that pt does meet criteria for LTACH admission but she would like to know how long pt will be on antibx. This RN CM will discuss with Dr Garcia, when available. Jocelynn is aware that pt would like to go to [facility] at [place], voices understanding. Cyndi RN CAMILO Addendum entered by aKy Oliveira 09/03/19 11:03: This RN CM received a call back from pt's HPOA, Martha, at this time and she states that she would like pt to go back to the [facility] in [place] at this time. She states that she has already spoken to the there in regards to pt this am. Call to Chelsea in admissions at [facility] and her direct contact is [phone] and her fax is [phone]. Referral faxed to [facility] at this time with this RN CM's contact info. CM to follow. Cyndi MOCTEZUMA CM Original Note: Pt is only alert to person at this time. Call to pt's HPOA, Martha Ovalle, to discuss plan on care at this time. Martha still states that she feels that [facility] will not be able to manage all pt's needs at this time and is interested in LTACH at this time. HPAXEL states she does not want pt to go to [facility] as she states 'that is where he got that wound in the first place.' She does state that pt has been to [facility] in [facility] in the past. This RN CM advised her that [facility] and [facility] are now one company and that the closest facilities to her are in [place] at [facility] and in [place]. Martha states she would like to discuss with a nurse friend and then she will call this RN CM back. Advised Martha that if referral sent to any of the [facility] facilities, they can always transfer to a different one if she changes her mind on location. Martha voices no further questions/concerns/needs at this time. Cyndi MOCTEZUMA CM
[2019-09-03] MEDS: DAKIN'S SOL HALF STRENGTH (=0.25%) 1 APPLIC TOPICAL (10:48)
--- NOTE | 2019-09-03 11:13 | NURSING ---
In to change dressings to abdomen and sacrum. the old drain/port site to the RLQ draining copious amount of serous drainage. no purulence, no odor noted. there is a small deeper area noted in the central portion of the midline abdominal wound. the drainage appears to be serosanguineous. no purulence or odor noted. the periwound redness has improved from yesterday. notified [place]ta of drainage, etc. do not feel these wounds are the source of fevers. sacral wound is stable as well. colostomy appliance remains intact. plan to change appliance tomorrow. pt still having large amounts of unformed stool. stoma appears beefy red.
[2019-09-03] MEDS: Metoprolol Tartrate 100 MG Tablet PO ×2 (11:17→21:48)
[2019-09-03] MEDS: Folic Acid 1 MG Tablet PO (11:17)
[2019-09-03] MEDS: Fenofibrate 145 MG Tablet PO (11:17)
[2019-09-03] MEDS: Juven (unflavored) Packet 1 PACKET PO ×2 (11:18→17:58)
[2019-09-03] MEDS: Aspirin 81 MG TAB.CHEW PO (11:18)
[2019-09-03] MEDS: Enoxaparin 40 MG/0.4 ML Syringe SC (11:19)
[2019-09-03] MEDS: Nystatin Powder 15gm Bottle 1 APPLIC TOPICAL ×2 (11:20→21:26)
[2019-09-03 11:46] LABS: Bedside Glucose 87 mg/dL (70-110)
[2019-09-03] MEDS: oxyCODONE 5 MG Tablet PO ×2 (15:12→21:48)
--- NOTE | 2019-09-03 16:29 | PCM.PN.ID ---
Patient Problems: Active and Suspected Problems (Last Updated 08/25/19 @ 08:[address] Samina Heredia MD) Cecum perforation (Acute) Severe sepsis (Acute) Sacral wound (Acute) UTI (urinary tract infection) (Acute) Subjective: Feeling better, denies fever, still with low grade temps. - Physical Exam Vitals/I&O's: Vital Signs Temp Pulse Resp BP Pulse Ox 100.9 F H 109 H 25 H 117/73 98 09/03/19 15:00 09/03/19 15:17 09/03/19 15:00 09/03/19 15:00 09/03/19 15:00 Oxygen Flow Rate (L/min) 2 Oxygen Delivery Method Nasal Cannula Weight: 123.8 kg Body Mass Index (BMI) 43.0 Finger Stick Blood Glucose 191 Intake and Output for Last 24 Hours 09/01/19 09/02/19 09/03/19 23:59 23:59 23:59 Intake Total 5951.25 / 6151.25 5490.0 / 5490.0 2105.0 / 2105.0 Output Total 2350 / 3100 4050 / 4050 1625 / 1625 Balance 3601.25 / 3051.25 1440.0 / 1440.0 480.0 / 480.0 General: Alert, Cooperative, No apparent distress Lungs: Clear to auscultation, Normal air movement Cardiovascular: Regular rate, Regular Rhythm Abdomen: Soft, Non Tender, Non-Distended Skin: No rashes, Ulcer/ Wound - reviewed photos Microbiology Past 72 Hours 08/29/19 14:10 Blood Culture (Wb) - Left Hand Blood Culture - Final No growth in 5 days. 08/19/19 16:06 Tissue - Sacral Gram Stain - Final 08/19/19 16:06 Tissue - Sacral Wound Culture - Preliminary Providencia stuartii Acinetobacter baumannii Vancomycin Resist. E. faecium 08/19/19 16:06 Tissue - Sacral Anaerobic Culture - Final Bacteroides fragilis group Anaerobic cocci 09/01/19 03:20 Blood Culture (Wb) - Anticubital Right Blood Culture - Preliminary No growth in 48 hours. 09/01/19 Unknown Blood Culture (Wb) - Right Forearm Blood Culture - Preliminary No growth in 48 hours. 08/28/19 09:46 Blood Culture (Wb) - Left Hand Blood Culture - Final No growth in 5 days. 08/28/19 09:40 Blood Culture (Wb) - Other Blood Culture - Final No growth in 5 days. 09/01/19 07:30 Urine Catheter - Coyne Urine Culture - Final Lilliam albicans 08/29/19 17:20 Other - Pic Miscellaneous Culture - Final Staphylococcus epidermidis 08/29/19 17:20 Other - Pic Gram Stain - Final 09/01/19 10:00 Stool Stool Occult Blood (GEETA) - Final Occult Blood Positive 08/30/19 05:56 Blood Culture (Wb) - Left Hand Blood Culture - Preliminary No growth in 48 hours. 08/31/19 10:45 Stool C. difficile DNA Amplification - Final Laboratory Results 09/02/19 17:22: POC Glucose 106 09/02/19 23:53: POC Glucose 91 09/03/19 06:11: POC Glucose 95 09/03/19 06:25: WBC 10.7, RBC 3.45 L, Hgb 10.2 L, Hct 33.2 L, MCV 96.2 H, MCH 29.6, MCHC 30.7 L, RDW Std Deviation 58.5 H, RDW Coeff of Tio 18.3 H, Plt Count 351, MPV 10.4, Immature Gran % (Auto) 1.500 H, Neut % (Auto) 72.7 H, Lymph % (Auto) 18.8 L, Gallia % (Auto) 6.4, Eos % (Auto) 0.3, Baso % (Auto) 0.3, Absolute Neuts (auto) 7.8 H, Absolute Lymphs (auto) 2.02, Nucleated RBC % 0.6, Differential Comment SCANNED, Reactive Lymphocytes RARE 09/03/19 06:25: Sodium 145, Potassium 4.2, Chloride 117 H, Carbon Dioxide 19.0 L, Anion Gap 9, BUN 23 H, Creatinine 1.07, Estim Creat Clear Calc 75.25, Est GFR (MDRD) Af Amer 91, Est GFR (MDRD) Non-Af 75, BUN/Creatinine Ratio 21.5 H, Glucose 108 H, Calcium 8.2 L 09/03/19 11:37: POC Glucose 87 Current Medications Acetaminophen (Tylenol Liquid) 650 mg PO Q6H PRN PRN PRN Reason: Pain Score 1-11/14 Last Admin: 09/03/19 11:52 Dose: 650 mg Documented by: Aspirin (Aspirin, Baby) 81 mg PO DAILYCM [facility] Last Admin: 09/03/19 11:18 Dose: 81 mg Documented by: Atorvastatin Calcium (Lipitor) 80 mg PO QHS [facility] Last Admin: 09/02/19 21:12 Dose: 80 mg Documented by: Calamine/Phenol (Calmoseptine Ointment) 1 applic TOPICAL TID [facility]; Protocol Last Admin: 09/03/19 15:14 Dose: 1 applicatio Documented by: Dextrose (D50w Syringe) 0 gm IV X1 PRN; Protocol PRN Reason: Hypoglycemia Diazepam (Valium) 5 mg PO Q6H PRN PRN PRN Reason: SPASMS Last Admin: 09/02/19 21:13 Dose: 5 mg Documented by: Diltiazem HCl (Cardizem) 60 mg PO Q8 [facility] Last Admin: 09/03/19 15:13 Dose: 60 mg Documented by: Enoxaparin Sodium (Lovenox) 40 mg SC DAILY [facility] Last Admin: 09/03/19 11:19 Dose: 40 mg Documented by: Fenofibrate (Tricor) 145 mg PO DAILY [facility] Last Admin: 09/03/19 11:17 Dose: 145 mg Documented by: [facility]) [facility] Last Admin: 09/03/19 11:17 Dose: 1 mg Documented by: Glucagon () 1 mg IM .X1 PRN PRN Reason: Hypoglycemia Meropenem 1 gm/ Sodium (Chloride) 120 mls @ 33 mls/hr IV Q8 [facility] Last Admin: 09/03/19 15:13 Dose: 33 mls/hr Documented by: Sodium Chloride () 250 mls @ 15 mls/hr IV .[id number] PRN PRN Reason: Saline Flush Last Infusion: 08/31/19 05:11 Dose: 0 mls/hr Documented by: Sodium Chloride () 250 mls @ 15 mls/hr IV .[id number] PRN PRN Reason: Additional IVPB Infusion Eravacycline 125 mg/ Sodium (Chloride) 262.5 mls @ 262.5 mls/hr IV Q12 [facility] Last Infusion: 09/03/19 14:14 Dose: Infused Documented by: Daptomycin 1,000 mg/ Sodium (Chloride) 70 mls @ 140 mls/hr IV Q24 [facility] Last Infusion: 09/03/19 14:13 Dose: Infused Documented by: Micafungin Sodium 100 mg/ (Dextrose) 105 mls @ 100 mls/hr IV Q24 [facility] Last Infusion: 09/03/19 14:14 Dose: Infused Documented by: Pantoprazole Sodium 40 mg/ (Sodium Chloride) 110 mls @ 330 mls/hr IV Q12 [facility] Last Admin: 09/03/19 14:28 Dose: 330 mls/hr Documented by: Dextrose () 1,000 mls @ 150 mls/hr IV .Q6H40M [facility] Last Admin: 09/03/19 08:56 Dose: 150 mls/hr Documented by: Insulin Human Lispro (Humalog Kwikpen (Bkc)) 0 unit SC Q6H [facility]; Protocol Last Admin: 09/03/19 11:54 Dose: Not Given Documented by: Lactobacillus Acidophilus (Acidophilus) 2 tablet PO DAILY [facility] Last Admin: 09/03/19 11:17 Dose: 2 tablet Documented by: Metoprolol Tartrate (Lopressor (Beta Dana)) 100 mg PO BID [facility] Last Admin: 09/03/19 11:17 Dose: 100 mg Documented by: Nystatin (Mycostatin Powder) 1 applic TOPICAL BID [facility]; Protocol Last Admin: 09/03/19 11:20 Dose: 1 applicatio Documented by: Oxycodone HCl (Oxyir) 5 mg PO Q6H PRN PRN PRN Reason: Pain Score 6-10/10 Last Admin: 09/03/19 15:12 Dose: 5 mg Documented by: Potassium Chloride (Potassium Chl Soln) 20 meq PO BIDCM [facility] Last Admin: 09/03/19 11:18 Dose: 20 meq Documented by: Promethazine HCl (Phenergan Tablet) 25 mg PO Q4H PRN PRN PRN Reason: NAUSEA/VOMITING Sodium Chloride () 10 - 40 ml IV UD PRN PRN Reason: SALINE FLUSH Last Admin: 09/02/19 06:07 Dose: 30 ml Documented by: Sodium Hypochlorite (Dakins Solution 0.25% (1/2 Strength)) 1 applic TOPICAL BID [facility]; Protocol Last Admin: 09/03/19 10:48 Dose: 1 applicatio Documented by: Valproic Acid (Depakene) 750 mg PO TID [facility] Last Admin: 09/03/19 15:13 Dose: 750 mg Documented by: Medical Necessity - Tobacco Use Smoking Status: Current every day smoker Route of nutrition/ use of supplements: [] Nutritional Intake: [] IV Site: [] Coyne Catheter: [] - Assessment/Plan Antibiotics: [] Assessment/Plan: [] Active and Suspected Problems (Last Updated 12/07/17 @ 08:57 by Shira Conte) Severe sepsis (Acute) Sacral wound (Acute) UTI (urinary tract infection) (Acute) severe sepsis with polymicrobial bacteremia, 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 OR 08/[address] Nguyễn for I&D. OR 08/[address] Crystal for diverting ostomy. On linezolid/gudelia/eravacycline. Wbc much improved. Wound cx with providencia, VRE, XDR Acinetobacter, MRSA, proteus. Bcx with enterobacter x2 and MRSE. Spoke with micro lab and requested additional susc testing for the AcB. VRE was R to linezolid, had fever, so 08/24 changed linezolid to dapto. Developed new yeast in bcx 08/24. Started micafungin, picc was removed and replaced. No veg seen on TTE, but poor quality study. AM of 08/31, moved back to ICU with fever, lactic acidosis, drop in hgb, rising wbc. Bcx repeat, CT done, seen by pulm and surgery. Denies cough or SOB. No abd pain, no neck pain or headache. Repeat covid was neg. It sounds like last night nurse was able to advance his coyne. Not clear why he worsened yesterday, but today fever curve steadily improving, wbc improved, off of oxygen, and mental status much better. Still low grade temps, but wbc now normal. Plan will be for 2 weeks total micafungin (started 08/27) and 6 total weeks of dapto/gudelia/eravacycline (start date surgery on 08/18). Still fevers, but with overall improvement, not in a posada to broaden coverage or landers scan or do ELLIE. Will follow, d/w shelter case manager
[2019-09-03 17:17] LABS: AST(SGOT) 355 U/L (15-37); Alanine Aminotransfer ALT/SGPT 166 U/L (16-61); Albumin, Serum 1.2 g/dL (3.2-5.0); Alkaline Phosphatase 382 U/L (45-117); Bilirubin, Direct 1.93 mg/dL (0.00-0.30); CPK Total, Creatine Kinase 170 U/L (39-308); Globulin 7.2 g/dL (2.2-4.2); Protein, Total 8.4 g/dL (6.4-8.2)
[2019-09-03 18:36] LABS: Bedside Glucose 107 mg/dL (70-110)
--- NOTE | 2019-09-03 20:10 | NURSING ---
This nurse notified Romat in RT that pt. o2 levels are at 88% on 6L NC. Pt. was on 2L earlier today and sats 97%. Turned up to 4L during the day after med administration per day nurse report. Per day shift report, possible aspiration. RT notified hospitalist and obtained CXR and bipap order. Pt. pulse ox improving to 97% on bipap 20/12 at 50%. Will monitor.
--- NOTE | 2019-09-03 20:40 | RAD_ITS ---
STUDY: X-RAY CHEST REASON FOR EXAM: Male, 59 years old. SOB, SEPSIS, INFECTED DECUBITUS ULCER TECHNIQUE: AP portable COMPARISON: 09/01/2019 FINDINGS: Less than optimal inspiratory effort is seen. There is slightly increased retrocardiac density at the left base possibly representing mild atelectasis or infiltrate. There is no demonstrated pleural abnormality. Postop change status post median sternotomy and CABG. Normal size heart. Normal mediastinum and tony. Normal visualized pulmonary arteries. Normal visualized aortic arch and descending thoracic aorta. Normal visualized thoracic spine. Normal visualized ribs, clavicles, and shoulders. There is no demonstrated abnormality of the visualized soft tissue structures of the upper abdomen. RAD/Chest 1 View IMPRESSION: Diminished inspiratory effort and possible mild left basilar atelectasis or infiltrate Electronically Signed: Samuel Malone MD at 21:02 EDT , Service support ,
[2019-09-03] MEDS: Atorvastatin Calcium 80 MG Tablet PO (21:49)
[2019-09-04] VITALS (30 sets, daily range): BP systolic 90–144; BP diastolic 55–80; PULSE 68–97; RESP 14–31; TEMP 37.2–38.1; O2SAT 95–100
[2019-09-04] MEDS: DAKIN'S SOL HALF STRENGTH (=0.25%) 1 APPLIC TOPICAL ×3 (00:32→23:19)
[2019-09-04] MEDS: 0.9% Saline Lock 10 ML Syringe IV (01:09)
[2019-09-04 01:36] LABS: Bedside Glucose 83 mg/dL (70-110)
[2019-09-04] MEDS: Menthol/Lanolin/Calamine/Znox 113 GM Tube 1 APPLIC TOPICAL ×3 (05:19→23:20)
[2019-09-04] MEDS: oxyCODONE 5 MG Tablet PO ×2 (05:51→18:49)
[2019-09-04] MEDS: Valproic Acid 250 MG/5 ML UDC 750 MG PO ×3 (05:51→23:27)
[2019-09-04] MEDS: dilTIAZem 30 MG Tablet 60 MG PO ×3 (05:51→23:26)
[2019-09-04] MEDS: Acetaminophen 650 MG/20 ML UDC PO ×2 (06:07→12:38)
[2019-09-04 06:25] LABS: Bedside Glucose 86 mg/dL (70-110)
[2019-09-04] MEDS: Metoprolol Tartrate 100 MG Tablet PO ×2 (10:29→23:27)
[2019-09-04] MEDS: Juven (unflavored) Packet 1 PACKET PO ×2 (10:29→16:59)
[2019-09-04] MEDS: Folic Acid 1 MG Tablet PO (10:29)
[2019-09-04] MEDS: Aspirin 81 MG TAB.CHEW PO (10:29)
[2019-09-04] MEDS: Fenofibrate 145 MG Tablet PO (10:29)
[2019-09-04] MEDS: Enoxaparin 40 MG/0.4 ML Syringe SC (10:30)
[2019-09-04] MEDS: Nystatin Powder 15gm Bottle 1 APPLIC TOPICAL ×2 (10:30→23:26)
--- NOTE | 2019-09-04 11:29 | NURSING ---
wound/stoma photo: abdomen
--- NOTE | 2019-09-04 11:30 | NURSING ---
wound photo: right lower abdomen
--- NOTE | 2019-09-04 11:30 | NURSING ---
wound photo: mid abdomen
--- NOTE | 2019-09-04 13:05 | PCM.PN.SRG ---
Patient Problems: Active and Suspected Problems (Last Updated 08/25/19 @ 08:[address] Samina Heredia MD) Cecum perforation (Acute) Severe sepsis (Acute) Sacral wound (Acute) UTI (urinary tract infection) (Acute) Subjective: Postop #16 Patient is resting comfortably. Had some pain when turning him on his side for the sacral dressing change. - Physical Exam Vitals/I&O's: Vital Signs Temp Pulse Resp BP Pulse Ox 99.5 F H 76 23 H 90/55 L 96 09/04/19 12:00 09/04/19 12:00 09/04/19 12:00 09/04/19 12:00 09/04/19 12:00 Oxygen Flow Rate (L/min) 2 Oxygen Delivery Method Nasal Cannula Weight: 272 lb 14.916 oz Body Mass Index (BMI) 43.0 Finger Stick Blood Glucose 191 Intake and Output for Last 24 Hours 09/02/19 09/03/19 09/04/19 23:59 23:59 23:59 Intake Total 5490.0 / 5490.0 3925.0 / 3975.0 3107.5 / 3107.5 Output Total 4050 / 4050 2775 / 3875 2050 / 2050 Balance 1440.0 / 1440.0 1150.0 / 100.0 1057.5 / 1057.5 General: Alert, Oriented x3 HEENT: PERRLA, EOMI Oral: Moist Mucosa Neck: Supple Abdomen: Soft, Non-Distended Skin: Ulcer/ Wound - sacral wound stable. No active bleeding. No evidence of persistent infection at this time. Redressed wound with Dakin's dressing changes. Neurological: Cranial nerves II-XII grossly intact Psych/Mental Status: Normal Affect, Appropriate Microbiology Past 72 Hours 08/30/19 05:56 Blood Culture (Wb) - Left Hand Blood Culture - Final No growth in 5 days. 08/29/19 14:10 Blood Culture (Wb) - Left Hand Blood Culture - Final No growth in 5 days. 08/19/19 16:06 Tissue - Sacral Gram Stain - Final 08/19/19 16:06 Tissue - Sacral Wound Culture - Preliminary Providencia stuartii Acinetobacter baumannii Vancomycin Resist. E. faecium 08/19/19 16:06 Tissue - Sacral Anaerobic Culture - Final Bacteroides fragilis group Anaerobic cocci 09/01/19 03:20 Blood Culture (Wb) - Antecubital Right Blood Culture - Preliminary No growth in 48 hours. 09/01/19 Unknown Blood Culture (Wb) - Right Forearm Blood Culture - Preliminary No growth in 48 hours. 08/28/19 09:46 Blood Culture (Wb) - Left Hand Blood Culture - Final No growth in 5 days. 08/28/19 09:40 Blood Culture (Wb) - Other Blood Culture - Final No growth in 5 days. 09/01/19 07:30 Urine Catheter - Chakraborty Urine Culture - Final Lilliam albicans 08/29/19 17:20 Other - Pic Miscellaneous Culture - Final Staphylococcus epidermidis 08/29/19 17:20 Other - Pic Gram Stain - Final 09/01/19 10:00 Stool Stool Occult Blood (GEETA) - Final Occult Blood Positive Laboratory Results 09/03/19 06:25: Total Bilirubin 2.30 H, Direct Bilirubin 1.93 H, AST 355 H, ALT 166 H, Alkaline Phosphatase 382 H, Total Creatine Kinase 170, Total Protein 8.4 H, Albumin 1.2 L, Globulin 7.2 H 09/03/19 18:10: POC Glucose 107 09/04/19 01:00: POC Glucose 83 09/04/19 06:14: POC Glucose 86 Current Medications Acetaminophen (Tylenol Liquid) 650 mg PO Q6H PRN PRN PRN Reason: Pain Score 1-10/10 Last Admin: 09/04/19 12:38 Dose: 650 mg Documented by: Aspirin (Aspirin, Baby) 81 mg PO DAILYCM [facility] Last Admin: 09/04/19 10:29 Dose: 81 mg Documented by: Atorvastatin Calcium (Lipitor) 80 mg PO QHS [facility] Last Admin: 09/03/19 21:49 Dose: 80 mg Documented by: Calamine/Phenol (Calmoseptine Ointment) 1 applic TOPICAL TID [facility]; Protocol Last Admin: 09/04/19 05:19 Dose: 1 applicatio Documented by: Dextrose (D50w Syringe) 0 gm IV X1 PRN; Protocol PRN Reason: Hypoglycemia Diazepam (Valium) 5 mg PO Q6H PRN PRN PRN Reason: SPASMS Last Admin: 09/02/19 21:13 Dose: 5 mg Documented by: Diltiazem HCl (Cardizem) 60 mg PO Q8 [facility] Last Admin: 09/04/19 05:51 Dose: 60 mg Documented by: Enoxaparin Sodium (Lovenox) 40 mg SC DAILY [facility] Last Admin: 09/04/19 10:30 Dose: 40 mg Documented by: Fenofibrate (Tricor) 145 mg PO DAILY [facility] Last Admin: 09/04/19 10:29 Dose: 145 mg Documented by: Folic Acid (Folic Acid) 1 mg PO DAILYCM [facility] Last Admin: 09/04/19 10:29 Dose: 1 mg Documented by: Glucagon () 1 mg IM .X1 PRN PRN Reason: Hypoglycemia Meropenem 1 gm/ Sodium (Chloride) 120 mls @ 33 mls/hr IV Q8 [facility] Last Infusion: 09/04/19 11:57 Dose: Infused Documented by: Sodium Chloride () 250 mls @ 15 mls/hr IV .[id number] PRN PRN Reason: Saline Flush Last Infusion: 08/31/19 05:11 Dose: 0 mls/hr Documented by: Sodium Chloride () 250 mls @ 15 mls/hr IV .[id number] PRN PRN Reason: Additional IVPB Infusion Eravacycline 125 mg/ Sodium (Chloride) 262.5 mls @ 262.5 mls/hr IV Q12 [facility] Last Infusion: 09/04/19 01:09 Dose: Infused Documented by: Daptomycin 1,000 mg/ Sodium (Chloride) 70 mls @ 140 mls/hr IV Q24 [facility] Last Admin: 09/04/19 12:04 Dose: 140 mls/hr Documented by: Micafungin Sodium 100 mg/ (Dextrose) 105 mls @ 100 mls/hr IV Q24 [facility] Last Infusion: 09/04/19 11:58 Dose: Infused Documented by: Pantoprazole Sodium 40 mg/ (Sodium Chloride) 110 mls @ 330 mls/hr IV Q12 [facility] Last Infusion: 09/04/19 11:57 Dose: Infused Documented by: Dextrose () 1,000 mls @ 150 mls/hr IV .Q6H40M [facility] Last Admin: 09/04/19 09:29 Dose: 150 mls/hr Documented by: Insulin Human Lispro (Humalog Kwikpen (Bkc)) 0 unit SC Q6H [facility]; Protocol Last Admin: 09/04/19 12:56 Dose: Not Given Documented by: Lactobacillus Acidophilus (Acidophilus) 2 tablet PO DAILY [facility] Last Admin: 09/04/19 12:37 Dose: 2 tablet Documented by: Metoprolol Tartrate (Lopressor (Beta Dana)) 100 mg PO BID [facility] Last Admin: 09/04/19 10:29 Dose: 100 mg Documented by: Nystatin (Mycostatin Powder) 1 applic TOPICAL BID [facility]; Protocol Last Admin: 09/04/19 10:30 Dose: 1 applicatio Documented by: Oxycodone HCl (Oxyir) 5 mg PO Q6H PRN PRN PRN Reason: Pain Score 6-10/10 Last Admin: 09/04/19 05:51 Dose: 5 mg Documented by: Potassium Chloride (Potassium Chl Soln) 20 meq PO BIDCM [facility] Last Admin: 09/04/19 10:29 Dose: 20 meq Documented by: Promethazine HCl (Phenergan Tablet) 25 mg PO Q4H PRN PRN PRN Reason: NAUSEA/VOMITING Sodium Chloride () 10 - 40 ml IV UD PRN PRN Reason: SALINE FLUSH Last Admin: 09/04/19 01:09 Dose: 10 ml Documented by: Sodium Hypochlorite (Dakins Solution 0.25% (1/2 Strength)) 1 applic TOPICAL BID [facility]; Protocol Last Admin: 09/04/19 12:40 Dose: 1 applicatio Documented by: Valproic Acid (Depakene) 750 mg PO TID [facility] Last Admin: 09/04/19 05:51 Dose: 750 mg Documented by: Medical Necessity - Tobacco Use Smoking Status: Current every day smoker Assessment/Plan All Active Problems (Last Updated 08/25/19 @ 08:[address] Samina Heredia MD) Septic shock (Acute) Cecum perforation (Acute) Multiple drug resistant Acinetobacter infection (Acute) Methicillin resistant Staphylococcus aureus infection (Acute) Severe sepsis (Acute) Sacral wound (Acute) UTI (urinary tract infection) (Acute) 1. 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 2. Diabetes mellitus. 3. Sepsis. 4. Epilepsy. 5. Smoker. 6. MRSA. 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 9. PAD. 10. s/p excision worsening infected sacral pressure sore from stool contamination, Stage IV, with partial ostectomy for osteomyelitis. Sacral wound is stable. No active bleeding noted. Some granulation tissue seen. Redressed with Dakin's dressing. No evidence of persistent infection at this time. Continue Daptomycin, Meropenem, Eravacycline, and Micafungin. Operative cultures from 08/19/19 showed Providencia stuartii, Acinetobacter baumannii, VRE, Bacteroides fragilis, and Anaerobic cocci in the soft tissue and E. coli, Proteus mirabilis, Providencia stuartii, MRSA, Bacteroides fragilis, and Anaerobic cocci in the bone. Blood cultures show Enterobacter cloacae, MRSE, and Yeast. Prealbumin is 5.1. Will need nutritional supplementation to help the healing process. Will recheck a Prealbumin tomorrow. For maximal healing, would benefit from temporary feedings through a PEG tube. Plan is to be discharged to an LTAC. Once he is discharged from the LTAC, [facility]up [facility]. Encouraged patient to stop smoking as it may have deleterious effects on wound healing.
[2019-09-04 13:25] LABS: Bedside Glucose 88 mg/dL (70-110)
--- NOTE | 2019-09-04 15:56 | CASEMGMT ---
RHIANNA PAGE NOTE: Updated clinicals faxed to [facility] at this time. Stephen LONG RN CM
--- NOTE | 2019-09-04 17:15 | PCM.PN.ID ---
Patient Problems: Active and Suspected Problems (Last Updated 08/25/19 @ 08:[address] Samina Heredia MD) Cecum perforation (Acute) Severe sepsis (Acute) Sacral wound (Acute) UTI (urinary tract infection) (Acute) Subjective: Feeling ok, no fever, breathing ok - Physical Exam Vitals/I&O's: Vital Signs Temp Pulse Resp BP Pulse Ox 99.7 F H 90 24 H 107/60 95 09/04/19 14:00 09/04/19 14:00 09/04/19 14:00 09/04/19 14:00 09/04/19 14:00 Oxygen Flow Rate (L/min) 2 Oxygen Delivery Method Nasal Cannula Weight: 123.8 kg Body Mass Index (BMI) 43.0 Finger Stick Blood Glucose 191 Intake and Output for Last 24 Hours 09/02/19 09/03/19 09/04/19 23:59 23:59 23:59 Intake Total 5490.0 / 5490.0 3925.0 / 3975.0 4107.5 / 4107.5 Output Total 4050 / 4050 2775 / 3875 2049 / 2050 Balance 1440.0 / 1440.0 1150.0 / 100.0 2057.5 / 2057.5 General: Alert, Cooperative, No apparent distress Lungs: Clear to auscultation, Normal air movement Cardiovascular: Regular rate, Regular Rhythm Abdomen: Soft, Non Tender, Non-Distended Skin: No rashes Microbiology Past 72 Hours 08/30/19 05:56 Blood Culture (Wb) - Left Hand Blood Culture - Final No growth in 5 days. 08/29/19 14:10 Blood Culture (Wb) - Left Hand Blood Culture - Final No growth in 5 days. 08/19/19 16:06 Tissue - Sacral Gram Stain - Final 08/19/19 16:06 Tissue - Sacral Wound Culture - Preliminary Providencia stuartii Acinetobacter baumannii Vancomycin Resist. E. faecium 08/19/19 16:06 Tissue - Sacral Anaerobic Culture - Final Bacteroides fragilis group Anaerobic cocci 09/01/19 03:20 Blood Culture (Wb) - Anticubital Right Blood Culture - Preliminary No growth in 48 hours. 09/01/19 Unknown Blood Culture (Wb) - Right Forearm Blood Culture - Preliminary No growth in 48 hours. 08/28/19 09:46 Blood Culture (Wb) - Left Hand Blood Culture - Final No growth in 5 days. 08/28/19 09:40 Blood Culture (Wb) - Other Blood Culture - Final No growth in 5 days. 09/01/19 07:30 Urine Catheter - Coyne Urine Culture - Final Lilliam albicans 08/29/19 17:20 Other - Pic Miscellaneous Culture - Final Staphylococcus epidermidis 08/29/19 17:20 Other - Pic Gram Stain - Final Laboratory Results 09/03/19 06:25: Total Bilirubin 2.30 H, Direct Bilirubin 1.93 H, AST 355 H, ALT 166 H, Alkaline Phosphatase 382 H, Total Creatine Kinase 170, Total Protein 8.4 H, Albumin 1.2 L, Globulin 7.2 H 09/03/19 18:10: POC Glucose 107 09/04/19 01:00: POC Glucose 83 09/04/19 06:14: POC Glucose 86 09/04/19 12:55: POC Glucose 88 Current Medications Acetaminophen (Tylenol Liquid) 650 mg PO Q6H PRN PRN PRN Reason: Pain Score 1-10/10 Last Admin: 09/04/19 12:38 Dose: 650 mg Documented by: Aspirin (Aspirin, Baby) 81 mg PO DAILYCM [facility] Last Admin: 09/04/19 10:29 Dose: 81 mg Documented by: Atorvastatin Calcium (Lipitor) 80 mg PO QHS [facility] Last Admin: 09/03/19 21:49 Dose: 80 mg Documented by: Calamine/Phenol (Calmoseptine Ointment) 1 applic TOPICAL TID [facility]; Protocol Last Admin: 09/04/19 15:14 Dose: 1 applicatio Documented by: Dextrose (D50w Syringe) 0 gm IV X1 PRN; Protocol PRN Reason: Hypoglycemia Diazepam (Valium) 5 mg PO Q6H PRN PRN PRN Reason: SPASMS Last Admin: 09/02/19 21:13 Dose: 5 mg Documented by: Diltiazem HCl (Cardizem) 60 mg PO Q8 [facility] Last Admin: 09/04/19 16:58 Dose: 60 mg Documented by: Enoxaparin Sodium (Lovenox) 40 mg SC DAILY [facility] Last Admin: 09/04/19 10:30 Dose: 40 mg Documented by: Fenofibrate (Tricor) 145 mg PO DAILY [facility] Last Admin: 09/04/19 10:29 Dose: 145 mg Documented by: Folic Acid (Folic Acid) 1 mg PO DAILYCM [facility] Last Admin: 09/04/19 10:29 Dose: 1 mg Documented by: Glucagon () 1 mg IM .X1 PRN PRN Reason: Hypoglycemia Meropenem 1 gm/ Sodium (Chloride) 120 mls @ 33 mls/hr IV Q8 [facility] Last Admin: 09/04/19 16:59 Dose: 33 mls/hr Documented by: Sodium Chloride () 250 mls @ 15 mls/hr IV .[id number] PRN PRN Reason: Saline Flush Last Infusion: 08/31/19 05:11 Dose: 0 mls/hr Documented by: Sodium Chloride () 250 mls @ 15 mls/hr IV .[id number] PRN PRN Reason: Additional IVPB Infusion Eravacycline 125 mg/ Sodium (Chloride) 262.5 mls @ 262.5 mls/hr IV Q12 [facility] Last Admin: 09/04/19 15:05 Dose: 262.2 mls/hr Documented by: Daptomycin 1,000 mg/ Sodium (Chloride) 70 mls @ 140 mls/hr IV Q24 [facility] Last Admin: 09/04/19 12:04 Dose: 140 mls/hr Documented by: Micafungin Sodium 100 mg/ (Dextrose) 105 mls @ 100 mls/hr IV Q24 [facility] Last Infusion: 09/04/19 11:58 Dose: Infused Documented by: Pantoprazole Sodium 40 mg/ (Sodium Chloride) 110 mls @ 330 mls/hr IV Q12 [facility] Last Infusion: 09/04/19 11:57 Dose: Infused Documented by: Dextrose () 1,000 mls @ 150 mls/hr IV .Q6H40M [facility] Last Admin: 09/04/19 17:05 Dose: Not Given Documented by: Insulin Human Lispro (Humalog Kwikpen (Bkc)) 0 unit SC Q6H [facility]; Protocol Last Admin: 09/04/19 12:56 Dose: Not Given Documented by: Lactobacillus Acidophilus (Acidophilus) 2 tablet PO DAILY [facility] Last Admin: 09/04/19 12:37 Dose: 2 tablet Documented by: Metoprolol Tartrate (Lopressor (Beta Dana)) 100 mg PO BID [facility] Last Admin: 09/04/19 10:29 Dose: 100 mg Documented by: Nystatin (Mycostatin Powder) 1 applic TOPICAL BID [facility]; Protocol Last Admin: 09/04/19 10:30 Dose: 1 applicatio Documented by: Oxycodone HCl (Oxyir) 5 mg PO Q6H PRN PRN PRN Reason: Pain Score 6-10/10 Last Admin: 09/04/19 05:51 Dose: 5 mg Documented by: Potassium Chloride (Potassium Chl Soln) 20 meq PO BIDCM [facility] Last Admin: 09/04/19 17:00 Dose: 20 meq Documented by: Promethazine HCl (Phenergan Tablet) 25 mg PO Q4H PRN PRN PRN Reason: NAUSEA/VOMITING Sodium Chloride () 10 - 40 ml IV UD PRN PRN Reason: SALINE FLUSH Last Admin: 09/04/19 01:09 Dose: 10 ml Documented by: Sodium Hypochlorite (Dakins Solution 0.25% (1/2 Strength)) 1 applic TOPICAL BID [facility]; Protocol Last Admin: 09/04/19 12:40 Dose: 1 applicatio Documented by: Valproic Acid (Depakene) 750 mg PO TID [facility] Last Admin: 09/04/19 15:14 Dose: 750 mg Documented by: Medical Necessity - Tobacco Use Smoking Status: Current every day smoker Route of nutrition/ use of supplements: [] Nutritional Intake: [] IV Site: [] Coyne Catheter: [] - Assessment/Plan Antibiotics: [] Assessment/Plan: [] Active and Suspected Problems (Last Updated 12/07/17 @ 08:57 by Shira Conte) Severe sepsis (Acute) Sacral wound (Acute) UTI (urinary tract infection) (Acute) severe sepsis with polymicrobial bacteremia, 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 OR 08/[address] Nguyễn for I&D. OR 08/[address] Crystal for diverting ostomy. On linezolid/gudelia/eravacycline. Wbc much improved. Wound cx with providencia, VRE, XDR Acinetobacter, MRSA, proteus. Bcx with enterobacter x2 and MRSE. Spoke with micro lab and requested additional susc testing for the AcB. VRE was R to linezolid, had fever, so 08/24 changed linezolid to dapto. Developed new yeast in bcx 08/24. Started micafungin, picc was removed and replaced. No veg seen on TTE, but poor quality study. AM of 08/31, moved back to ICU with fever, lactic acidosis, drop in hgb, rising wbc. Bcx repeat, CT done, seen by pulm and surgery. Denies cough or SOB. No abd pain, no neck pain or headache. Repeat covid was neg. It sounds like last night nurse was able to advance his coyne. Not clear why he worsened yesterday, but today fever curve steadily improving, wbc improved, off of oxygen, and mental status much better. Still low grade temps, but wbc now normal. Plan will be for 2 weeks total micafungin (started 08/27, stop date 09/11/19) and 6 total weeks of dapto/gudelia/eravacycline (start date surgery on 08/18, stop date 09/30/19). Ordered weekly bmp, cbc, LFT, CK, and ESR while on iv abx. Fever curve continues to improve. Will follow
[2019-09-04 17:31] LABS: Bedside Glucose 88 mg/dL (70-110)
[2019-09-04] MEDS: diazePAM 5 MG Tablet PO (18:50)
--- NOTE | 2019-09-04 19:18 | PCM.PN.HOSP ---
Patient Problems: Active and Suspected Problems (Last Updated 08/25/19 @ 08:[address] Samina Heredia MD) Cecum perforation (Acute) Severe sepsis (Acute) Sacral wound (Acute) UTI (urinary tract infection) (Acute) Subjective: Seems to be doing better today than he has been. Vital signs are much more stable. Vitals/I&O's: Vital Signs Temp Pulse Resp BP Pulse Ox 99.3 F H 96 27 H 121/68 H 96 09/04/19 17:00 09/04/19 17:00 09/04/19 17:00 09/04/19 17:00 09/04/19 17:00 Oxygen Flow Rate (L/min) 2 Oxygen Delivery Method Nasal Cannula Weight: 272 lb 14.916 oz Body Mass Index (BMI) 43.0 Finger Stick Blood Glucose 191 Intake and Output for Last 24 Hours 09/02/19 09/03/19 09/04/19 23:59 23:59 23:59 Intake Total 5490.0 / 5490.0 3925.0 / 3975.0 4680.0 / 4680.0 Output Total 4050 / 4050 2775 / 3875 2750 / 2750 Balance 1440.0 / 1440.0 1150.0 / 100.0 1930.0 / 1930.0 General: Alert, Oriented x3, Cooperative, No apparent distress, Disoriented HEENT: Atraumatic, PERRLA, EOMI, Normocephalic Oral: Moist Mucosa Neck: Supple, No JVD Lungs: Clear to auscultation, Normal air movement, No rhonchi, No wheeze, No rales, Diminished Cardiovascular: Regular rate, Regular Rhythm, Normal S1, Normal S2, No murmurs Abdomen: Soft, Non Tender, Non-Distended, No Hepato-splenomegaly Extremities: Edema Skin: No rashes, No breakdown, Incision - Sacral wound Neurological: Neuro grossly intact, Sensory exam intact to light touch and pain Psych/Mental Status: Flat Affect Microbiology Past 72 Hours 08/30/19 05:56 Blood Culture (Wb) - Left Hand Blood Culture - Final No growth in 5 days. 08/29/19 14:10 Blood Culture (Wb) - Left Hand Blood Culture - Final No growth in 5 days. 08/19/19 16:06 Tissue - Sacral Gram Stain - Final 08/19/19 16:06 Tissue - Sacral Wound Culture - Preliminary Providencia stuartii Acinetobacter baumannii Vancomycin Resist. E. faecium 08/19/19 16:06 Tissue - Sacral Anaerobic Culture - Final Bacteroides fragilis group Anaerobic cocci 09/01/19 03:20 Blood Culture (Wb) - Anticubital Right Blood Culture - Preliminary No growth in 48 hours. 09/01/19 Unknown Blood Culture (Wb) - Right Forearm Blood Culture - Preliminary No growth in 48 hours. 08/28/19 09:46 Blood Culture (Wb) - Left Hand Blood Culture - Final No growth in 5 days. 08/28/19 09:40 Blood Culture (Wb) - Other Blood Culture - Final No growth in 5 days. 09/01/19 07:30 Urine Catheter - Chakraborty Urine Culture - Final Lilliam albicans 08/29/19 17:20 Other - Pic Miscellaneous Culture - Final Staphylococcus epidermidis 08/29/19 17:20 Other - Pic Gram Stain - Final Laboratory Results 09/04/19 01:00: POC Glucose 83 09/04/19 06:14: POC Glucose 86 09/04/19 12:55: POC Glucose 88 09/04/19 17:16: POC Glucose 88 Current Medications Acetaminophen (Tylenol Liquid) 650 mg PO Q6H PRN PRN PRN Reason: Pain Score 1-10/10 Last Admin: 09/04/19 12:38 Dose: 650 mg Documented by: [facility]) [facility] Last Admin: 09/04/19 10:29 Dose: 81 mg Documented by: Atorvastatin Calcium (Lipitor) 80 mg PO QHS [facility] Last Admin: 09/03/19 21:49 Dose: 80 mg Documented by: Calamine/Phenol (Calmoseptine Ointment) 1 applic TOPICAL TID [facility]; Protocol Last Admin: 09/04/19 15:14 Dose: 1 applicatio Documented by: Dextrose (D50w Syringe) 0 gm IV X1 PRN; Protocol PRN Reason: Hypoglycemia Diazepam (Valium) 5 mg PO Q6H PRN PRN PRN Reason: SPASMS Last Admin: 09/04/19 18:50 Dose: 5 mg Documented by: Diltiazem HCl (Cardizem) 60 mg PO Q8 [facility] Last Admin: 09/04/19 16:58 Dose: 60 mg Documented by: Enoxaparin Sodium (Lovenox) 40 mg SC DAILY [facility] Last Admin: 09/04/19 10:30 Dose: 40 mg Documented by: Fenofibrate (Tricor) 145 mg PO DAILY [facility] Last Admin: 09/04/19 10:29 Dose: 145 mg Documented by: Folic Acid (Folic Acid) 1 mg PO DAILYCM [facility] Last Admin: 09/04/19 10:29 Dose: 1 mg Documented by: Glucagon () 1 mg IM .X1 PRN PRN Reason: Hypoglycemia Meropenem 1 gm/ Sodium (Chloride) 120 mls @ 33 mls/hr IV Q8 [facility] Last Admin: 09/04/19 16:59 Dose: 33 mls/hr Documented by: Sodium Chloride () 250 mls @ 15 mls/hr IV .[id number] PRN PRN Reason: Saline Flush Last Infusion: 08/31/19 05:11 Dose: 0 mls/hr Documented by: Sodium Chloride () 250 mls @ 15 mls/hr IV .[id number] PRN PRN Reason: Additional IVPB Infusion Eravacycline 125 mg/ Sodium (Chloride) 262.5 mls @ 262.5 mls/hr IV Q12 [facility] Last Infusion: 09/04/19 18:10 Dose: Infused Documented by: Daptomycin 1,000 mg/ Sodium (Chloride) 70 mls @ 140 mls/hr IV Q24 [facility] Last Infusion: 09/04/19 12:55 Dose: Infused Documented by: Micafungin Sodium 100 mg/ (Dextrose) 105 mls @ 100 mls/hr IV Q24 [facility] Last Infusion: 09/04/19 11:58 Dose: Infused Documented by: Pantoprazole Sodium 40 mg/ (Sodium Chloride) 110 mls @ 330 mls/hr IV Q12 [facility] Last Infusion: 09/04/19 11:57 Dose: Infused Documented by: Dextrose () 1,000 mls @ 150 mls/hr IV .Q6H40M [facility] Last Admin: 09/04/19 17:05 Dose: Not Given Documented by: Insulin Human Lispro (Humalog Kwikpen (Bkc)) 0 unit SC Q6H [facility]; Protocol Last Admin: 09/04/19 17:27 Dose: Not Given Documented by: Lactobacillus Acidophilus (Acidophilus) 2 tablet PO DAILY [facility] Last Admin: 09/04/19 12:37 Dose: 2 tablet Documented by: Metoprolol Tartrate (Lopressor (Beta Dana)) 100 mg PO BID [facility] Last Admin: 09/04/19 10:29 Dose: 100 mg Documented by: Nystatin (Mycostatin Powder) 1 applic TOPICAL BID [facility]; Protocol Last Admin: 09/04/19 10:30 Dose: 1 applicatio Documented by: Oxycodone HCl (Oxyir) 5 mg PO Q6H PRN PRN PRN Reason: Pain Score 6-10/10 Last Admin: 09/04/19 18:49 Dose: 5 mg Documented by: Potassium Chloride ([facility]n) [facility] Last Admin: 09/04/19 17:00 Dose: 20 meq Documented by: Promethazine HCl (Phenergan Tablet) 25 mg PO Q4H PRN PRN PRN Reason: NAUSEA/VOMITING Sodium Chloride () 10 - 40 ml IV UD PRN PRN Reason: SALINE FLUSH Last Admin: 09/04/19 01:09 Dose: 10 ml Documented by: Sodium Hypochlorite (Dakins Solution 0.25% (1/2 Strength)) 1 applic TOPICAL BID [facility]; Protocol Last Admin: 09/04/19 12:40 Dose: 1 applicatio Documented by: Valproic Acid (Depakene) 750 mg PO TID [facility] Last Admin: 09/04/19 15:14 Dose: 750 mg Documented by: STROKE Vital Signs/Narrative: Vital Signs Temp Pulse Resp BP Pulse Ox 09/04/19 17:00 99.3 F H 96 27 H 121/68 H 96 09/04/19 16:00 99.5 F H 88 24 H 122/64 H 96 Medical Necessity - Tobacco Use Smoking Status: Current every day smoker Assessment/Plan All Active Problems (Last Updated 08/25/19 @ 08:[address] Samina Heredia MD) Septic shock (Acute) Cecum perforation (Acute) Multiple drug resistant Acinetobacter infection (Acute) Methicillin resistant Staphylococcus aureus infection (Acute) Severe sepsis (Acute) Sacral wound (Acute) UTI (urinary tract infection) (Acute) 1. Severe sepsis secondary to polymicrobial infection of the stage IV sacral decubitus ulcer with osteomyelitis/acute complicated cystitis secondary to a chronic Chakraborty caused by Lilliam albicans/acute metabolic encephalopathy with elevated LFTs -Appreciate infectious disease assistance as he has an extremely complicated resistance pattern and his polymicrobial infection of Enterobacter, methicillin-resistant staph epidermidis as well as MRSA, Acinetobacter baumanii, corynebacterium, Proteus, Lilliam, VRE, Providencia. -There is been difficulty treatment given though number of infectious organisms as well as the variation in their sensitivities and resistance patterns he has gone back and forth between the progressive care unit in the ICU fairly frequently but it does appear now that we have reached an appropriate combination of medications with micafungin, for 2 weeks, and daptomycin, meropenem, eravacycline, for a total of 6-weeks -Disposition will be to an LTAC if possible -LFTs are improving, and his mentation is clearing up 2. Diverting colostomy 08/20/2019 to treat his decubitus ulcer was complicated by perforation of the cecum, status post laparoscopic ileocecectomy with primary anastomosis 08/21/2019 -Ostomy is pink -Appreciate general surgery assistance 3. HTN/HLD/CAD status post CABG/paroxysmal A. fib -Continue with Cardizem and metoprolol for rate control -Blood pressure is stable -Continue with aspirin, statin -No anticoagulation at this time for his A. fib secondary to his extensive surgeries recently 4. DM 2 -Continue to hold metformin, continue with sliding scale insulin -Accu-Cheks AC at bedtime 5. Seizure disorder -Stable -Continue with valproic acid 6. Hypernatremia and hypokalemia resolved DVT: Lovenox Inpatient E&M: 20522 Subs Hosp L2
[2019-09-04] MEDS: Atorvastatin Calcium 80 MG Tablet PO (23:27)
[2019-09-05] VITALS (23 sets, daily range): BP systolic 85–135; BP diastolic 35–102; PULSE 72–94; RESP 18–31; TEMP 2.9–37.6; O2SAT 90–100
[2019-09-05 00:26] LABS: Bedside Glucose 78 mg/dL (70-110)
[2019-09-05] MEDS: oxyCODONE 5 MG Tablet PO ×2 (01:30→12:48)
[2019-09-05] MEDS: 0.9% Saline Lock 10 ML Syringe IV ×2 (04:15→06:49)
[2019-09-05] MEDS: Acetaminophen 650 MG/20 ML UDC PO (04:15)
[2019-09-05 06:50] LABS: Bedside Glucose 74 mg/dL (70-110)
[2019-09-05] MEDS: Menthol/Lanolin/Calamine/Znox 113 GM Tube 1 APPLIC TOPICAL ×2 (06:50→14:14)
[2019-09-05] MEDS: dilTIAZem 30 MG Tablet 60 MG PO (06:54)
[2019-09-05] MEDS: Valproic Acid 250 MG/5 ML UDC 750 MG PO ×2 (06:54→14:23)
[2019-09-05 06:55] LABS: Hematocrit 30.6 % (40-54); Hemoglobin 9.2 g/dL (13.0-16.5); Mean Corp Hgb Conc 30.1 g/dL (32-36); Mean Corpuscular Hgb 29.6 pg (27.0-32.0); Mean Corpuscular Volume 98.4 fL (80-94); Mean Platelet Vol. 10.3 fl (6.2-12.0); Platelet Count 296 K/mm3 (150-450); RBC Distribution Width CV 17.8 % (11.6-14.6); RBC Distribution Width SD 61.3 fl (35.1-43.9); Red Blood Count 3.11 M/mm3 (4.6-6.2); White Blood Count 8.3 K/mm3 (4.4-11.0)
[2019-09-05 07:20] LABS: Anion Gap 6 (5-15); BUN 19 mg/dL (7-18); BUN/Creat Ratio 26.2 RATIO (10-20); Calcium,Total 7.5 mg/dL (8.5-10.1); Chloride 110 mmol/L (98-107); Creatinine, Serum 0.73 mg/dL (0.70-1.30); EST Glomerular Filtration Rate 118 mL/min (>60); Est Glom Filt Rate - Afr Amer 143 mL/min (>60); Glucose 80 mg/dL (74-106); Potassium 4.1 mmol/L (3.5-5.1); Prealbumin 6.6 mg/dL (20.0-40.0); Sodium Level 138 mmol/L (136-145)
--- NOTE | 2019-09-05 08:57 | CASEMGMT ---
Addendum entered by Kay Oliveira 09/05/19 14:05: Transportation set up for 1430 by Kirstin, [facility] law secretary, and Jocelynn at [facility] updated at this time, voices understanding. Sirisha MOCTEZUMA provided with number to call report, voices understanding. Cyndi MOCTEZUMA CM Addendum entered by Kay Oliveira 09/05/19 11:51: Jocelynn at [facility] aware pt to be transferred to [facility] in [facility] today, voices understanding. Contact info for RN report a [facility]: [phone] and fax for orders: [phone]. Sirisha MOCTEZUMA and Kirstin, [facility] law secretary, updated on all, voice understanding. Cyndi MOCTEZUMA CM Addendum entered by Kay Oliveira 09/05/19 11:23: Call from Martha, pt's HPOA, and she states that she found pt's HPOA paperwork and she is bringing with her to hospital at this time. Martha aware to give to [facility] law secretary, Kirstin, to be copied and placed on chart, voices understanding. Cyndi MOCTEZUMA CM Addendum entered by Kay Oliveira 09/05/19 09:31: Martha, pt's HPOA, updated on plan of care and that [facility] is able to take pt and have bed available today, voices understanding. Martha states that [facility] should have copy of HPOA but according to Kirstin at [facility], they do not have a copy at this time. Kirstin stated that she was putting a call out to [facility] and [facility] as well. Martha states that she will look for papers at home and bring them to hospital today if she finds. This RHIANNA PAGE had also asked Jocelynn at [facility] to check pt's previous chart to see if they had the HPOA on file there. According to Martha, she believes that the paperwork was completed while pt was in [facility] previously. CM did notify Martha that pt would most likely transfer today but this RN CM will notify her if pt does not, voices understanding. Cyndi MOCTEZUMA CM Original Note: Updated clinicals faxed to Jocelynn at [facility] at this time. This RN CM spoke with Jocelynn at [facility] and she states that the [facility] in [place] has a bed for pt today. Dr. Kotsonis to be notified during rounds to see if pt ready for discharge. Cyndi MOCTEZUMA CM
[2019-09-05] MEDS: Folic Acid 1 MG Tablet PO (10:05)
[2019-09-05] MEDS: Aspirin 81 MG TAB.CHEW PO (10:05)
[2019-09-05] MEDS: Juven (unflavored) Packet 1 PACKET PO (10:07)
[2019-09-05] MEDS: DAKIN'S SOL HALF STRENGTH (=0.25%) 1 APPLIC TOPICAL (10:11)
[2019-09-05] MEDS: Metoprolol Tartrate 100 MG Tablet PO (10:11)
[2019-09-05] MEDS: Fenofibrate 145 MG Tablet PO (10:11)
[2019-09-05] MEDS: Enoxaparin 40 MG/0.4 ML Syringe SC (10:16)
[2019-09-05] MEDS: Nystatin Powder 15gm Bottle 1 APPLIC TOPICAL (10:19)
--- NOTE | 2019-09-05 11:33 | TREXTCAR_ITS ---
- Diet 08/27/19 16:41 Diet: Regular Diet Food consistency:: Puree Liquid Consistency:: Pierpoint Thick Type of Dietary Supplement:: Ensure Complete Is pt able to select menu?: No Diet Comments: total feed/supervision, meds crushed in purees - Routine Orders/Code Status Routine Lab Work: - - He has a weekly BMP, CBC, LFTs, CK, and ESR ordered by ID while on IV antibiotics Code Status: Full Code - Wound(s) sacrum Wound Type: Pressure Injury Dressing Change: Dakins moistened gauze Lap sites Wound Type: Surgical Incision LUE Wound Type: Puncture midline Abd incision Wound Type: Surgical Incision Dressing Change: Wet to Dry Dressing RT lower abdomen Wound Type: Open Surgical Wound Dressing Change: Dry Sterile Dressing - Therapies Physical Therapy: Eval and Treat Occupational Therapy: Eval and Treat - Allergies/Procedures Done in Hospital Allergies/Adverse Reactions: Allergies Penicillins Allergy (Mild, Verified 08/18/19 12:09) rash - Type of Care/Length of Stay Estimated LOS: Convalescent Care Less Than 30 days Type of Care Needed: LTAC Rehab Potential: Fair Prognosis: Fair - Additional Orders/Day of Discharge Day of Discharge: 09/05/19 - Dietary and Speech Recommendations Dietitian Recommendations/Changes: Continue regular diet, consistency per [employer] order. Continue Ensure Enlive w/ meals, Mike BID at medpass, and magic cup at dinner. - Follow Up Care Primary Care Physician: Jamaica Lambert MD [NON-STAFF] - Please follow up with your Primary Care Physician in: 3-5 days after DC from LTAC
--- NOTE | 2019-09-05 11:35 | PCM.DC.SUM ---
Discharge Date and Diagnosis - Problem List Patient Problems: Active and Suspected Problems (Last Updated 08/25/19 @ 08:[address] Samina Heredia MD) Cecum perforation (Acute) Severe sepsis (Acute) Sacral wound (Acute) UTI (urinary tract infection) (Acute) Date of Admission: 08/18/19 Date of Discharge: 09/05/19 - Primary Discharge Diagnosis Acute Problems: Active Problems (Last Updated 08/25/19 @ 08:[address] Samina Heredia MD) Cecum perforation (Acute) Severe sepsis (Acute) Sacral wound (Acute) UTI (urinary tract infection) (Acute) - Secondary Discharge Diagnosis Chronic Problems: Chronic Problems (Last Updated 08/25/19 @ 08:[address] Samina Heredia MD) Fecal incontinence (Chronic) Osteomyelitis of pelvis (Chronic) Epilepsy (Chronic) Diabetes mellitus (Chronic) Smoker (Chronic) Pressure ulcer of sacral region, stage 4 (Chronic) PAD (peripheral artery disease) (Chronic) Hospital Course and Treatment Imaging Results: CT Abd/Pelvis: IMPRESSION: 08/17 Hepatomegaly and fatty infiltration of the liver. Right-sided double-J stent catheter with the proximal tip in the right mid pole calyces of the right kidney and the distal tip within the urinary bladder. Small cyst in the left kidney. Diffuse bladder wall thickening. The balloon of a Arreguin catheter is seen within the prostatic urethra. Stable large soft tissue defect overlying the sacrum. IMPRESSION: 08/19 153 Evaluation of the GI tract is limited by absence of oral contrast. Grossly satisfactory appearance of left lower quadrant ostomy. No gross evidence for obstruction or ileus. Cannot exclude segmental abnormalities of the bowel wall without oral contrast. Stable right ureteral stent. Fatty liver with hepatomegaly. Cholelithiasis. IMPRESSION: 08/20 1739 Free air and extravasation of contrast apparently from the right colon proximal to the ileocecal valve, suggestive of perforation. IMPRESSION: 08/24 Fatty infiltration of the liver. Postsurgical changes of the bowel with no evidence of extravasation. Atherosclerosis. Consolidation within the right lower lobe. Cholelithiasis. Stable right ureteral stent. Stable large decubitus ulcer. IMPRESSION: 08/31 There bilateral lower lobe pulmonary infiltrates. Liver is enlarged and fatty. There is a RIGHT ureteral stent in proper position. There is NO hydronephrosis. There bilateral kidney cysts. There has been a LEFT hemicolectomy. There is a LEFT lower quadrant colostomy. Urinary bladder wall is thickened. There is a ARREGUIN catheter. The balloon portion is inflated in the prostatic urethra. There is NO ascites or free air, abscess or adenopathy. CXR: IMPRESSION: Right-sided PICC line noted appearing in adequate position. There has been interval removal of endotracheal tube seen on the previous study. A nasogastric tube is noted with tip at the level of the mid esophagus. Further advancement is recommended. Bibasilar infiltrates are again noted stable in the interval. There is a poor inspiration. Report of Operation Date of Procedure: 08/19/19 Pre-Operative Diagnosis: 1. 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 2. Diabetes mellitus. 3. Sepsis. 4. Epilepsy. 5. Smoker. 6. s/p excision sacral pressure sore, Stage IV, with partial ostectomy for osteomyelitis. 7. MRSA. 8. MDR Acinetobacter baumannii. 9. Chronic MRSA osteomyelitis. Post-Operative Diagnosis: Same. Surgery/Procedure Performed:: Excision worsening infected sacral pressure sore from stool contamination, Stage IV, with partial ostectomy for osteomyelitis. Description of Surgical Findings:: Patient was taken to surgery on 08/04/19 where he underwent excision sacral pressure sore, Stage IV, with partial ostectomy for osteomyelitis. Wound care was started with Dakin's dressing changes as it was difficult to place a VAC because of close proximity to the anal opening. It was discussed with the patient to proceed with a diverting colostomy. Initially he was hesitant. His wound cultures showed Proteus mirabilis, MDR Acinetobacter baumannii, Corynebacterium striatum, and Anaerobic cocci in the soft tissue and MRSA in the bone. He was initially treated with Tobramycin, Levaquin, Flagyl, and Vancomycin. Infectious Diseases was consulted and he was changed to Eravacycline for the ECF. He was discharged to the ECF on 08/13/19. Today he retuned to the ED because of mental status changes and a septic picture. His WBC was 28.7. Lactate was 2.3. Urine shows an infection. He was started on Meropenem and Vancomycin. On exam, the sacral pressure sore shows some granulation and a lot of fibrous tissue. No evidence of purulent drainage. Wound measures 10 x 17 x 5 cm. However during the dressing change today, there was evidence of stool contamination in the inferior aspect of the pressure sore. Will continue Dakin's dressing changes twice a day. The patient would benefit from operative debridement for deeper cultures including bone to help with antibiotic management. Will proceed with surgery tomorrow. Discussed with the patient that he needs a diverting colostomy. Otherwise he will continue getting septic episodes from stool contamination. Will consult General Surgery. Will also consult Infectious Diseases to help with antibiotic management. Patient was informed of the risks and complications of the procedure including alternatives to surgery. These were discussed with the patient personally. Patient voices understanding and wishes to proceed. Size of defect sacral area - 22 x 13 x 5 cm. tool crib attendant: Jasbir Loyd. Type of Anesthesia:: General Specimen's removed: 1. Infected sacral pressure sore from stool contamination soft tissue to Pathology and Microbiology. 2. Infected sacral pressure sore from stool contamination bone to Pathology and Microbiology. Drains: None. Estimated Blood Loss (mL): 150 ml. Report of Operation Date of Procedure: 08/20/19 Pre-Operative Diagnosis: Infected sacral ulcer need for fecal diversion due to immobility Post-Operative Diagnosis: Same Surgery/Procedure Performed:: 1. Laparoscopic sigmoid partial colectomy with end colostomy. 2. Repair of right colon enterotomy Specimen's removed: Segment of sigmoid colon Report of Operation Date of Procedure: 08/21/19 Pre-Operative Diagnosis: Iatrogenic perforation of the cecum Post-Operative Diagnosis: Same Surgery/Procedure Performed:: Laparoscopic ileocecectomy with primary anastomosis Description of Surgical Findings:: Perforation of the posterior cecum tool crib attendant: Todd Sweet Type of Anesthesia:: General Specimen's removed: Ileocecectomy Estimated Blood Loss (mL): 20 Echo: Interpretation Summary Mildly dilated left ventricle. The estimated ejection fraction is 55 %. Stage 1 diastolic dysfunction. Unable to estimate RV systolic pressure due to insufficient tricuspid regurgitant envelope. The study was technically difficult. Contrast injection was performed. There is no comparison study available. Consultations 08/18/19 15:28 Consult: Onc/Wound/wrong address clerk Routine Comment: ID ICU/Pulmonology General Surgery Plastic Surgery Procedures: 2-D Echocardiogram Summary of Care Provided: Per HPI: The patient is a 58 year old M with an extensive past medical history as outlined was admitted through the ED from his extended care facility on 08/18/2019 with a complaint of altered mental status. History was taken mainly from his significant other as patient was confused. According to significant other, she was called in the early hours of today by his nurse that patient was more confused and his sacral decubitus ulcer looked black and so they were concerned it was infected and causing patient's confusion. She denies being told that he had any fever or chills, any cough or shortness of breath, any diarrhea vomiting and she does not know if anybody in the [facility] has had COVID. Patient was therefore brought into the ED. He was recently discharged from the hospital after having debridement done by Dr. Nguyễn for his decubitus ulcer. In the ED, vitals were significant for temperature of 98.3 Fahrenheit with respiratory rate of 19 though he was initially tachypneic with respiratory rate of 30. Pulse rate was down to 88 and was saturating at 99% on 2 L of oxygen. Chemistry showed lactic acid of 2.3 with sodium of 140 and bicarb of 28. Initial troponin was negative. BC showed WBC of 28.7 with hemoglobin of 12.7 and platelets of 484. Xavier pelvic CT showed hepatomegaly and fatty infiltration of the liver with right-sided double-J stent catheter with the proximal tip in the right mid pole calyces of the right kidney and distal tip within the urinary bladder with diffuse bladder wall thickening and large stable soft tissue defect overlying the sacrum. Chest x-ray showed cardiomegaly. Lactic acid was 2.3. UA showed evidence of UTI with 1+ bacteria. He has been admitted to be managed for sepsis due to infected cubitus ulcer UTI. He was started on IV vancomycin and meropenem in the ED. Hospital Course 1. Severe sepsis secondary to polymicrobial infection of the stage IV sacral decubitus ulcer with osteomyelitis/acute complicated cystitis secondary to a chronic Arreguin caused by Lilliam albicans right ureteral stent/acute metabolic encephalopathy with elevated LFTs -Appreciate infectious disease assistance as he has an extremely complicated resistance pattern and his polymicrobial infections, blood culture on 08/18/2019 with Enterobacter and MRSE, urine culture 09/01/2019 with Lilliam albicans, wound culture on 08/18/2019 with E. coli, Proteus, VRE, sacral tissue culture on 08/19/2019 with E. coli, Proteus, Bremer you, MRSA, Bacteroides and anaerobic cocci, sacral tissue culture 08/19/2019 once again with procidentia and VRE and Bacteroides however this one also had Acinetobacter baumannii, PICC line cultures 08/29/2019 with MRSE -There is been difficulty treatment given though number of infectious organisms as well as the variation in their sensitivities and resistance patterns he has gone back and forth between the progressive care unit and the ICU fairly frequently but it does appear now that we have reached an appropriate combination of medications with micafungin, for 2 weeks, and daptomycin, meropenem, eravacycline, for a total of 6-weeks -LFTs are improving, and his mentation is clearing up -Urology did not feel like the need to remove his right ureteral stent in the setting of his candidal UTI 2. Diverting colostomy 08/20/2019 to treat his decubitus ulcer was complicated by perforation of the cecum, status post laparoscopic ileocecectomy with primary anastomosis 08/21/2019 -Ostomy is pink -Appreciate general surgery assistance 3. HTN/HLD/CAD status post CABG/paroxysmal A. fib -Continue with Cardizem and metoprolol for rate control -Blood pressure is stable -Continue with aspirin, statin -No anticoagulation at this time for his A. fib secondary to his extensive surgeries recently 4. DM 2 -Continue to hold metformin, continue with sliding scale insulin -Accu-Cheks AC at bedtime 5. Seizure disorder -Stable -Continue with valproic acid 6. Hypernatremia and hypokalemia resolved Patient Problems: Active and Suspected Problems (Last Updated 08/25/19 @ 08:[address] Samina Heredia MD) Cecum perforation (Acute) Severe sepsis (Acute) Sacral wound (Acute) UTI (urinary tract infection) (Acute) - Physical Exam Vitals/I&O's: Vital Signs Temp Pulse Resp BP Pulse Ox 37.2 F L 74 23 H 106/76 98 09/05/19 09:00 09/05/19 10:11 09/05/19 09:00 09/05/19 09:00 09/05/19 09:00 Oxygen Flow Rate (L/min) 2 Oxygen Delivery Method Nasal Cannula Weight: 274 lb 7.608 oz Body Mass Index (BMI) 43.0 Finger Stick Blood Glucose 191 Intake and Output for Last 24 Hours 09/03/19 09/04/19 09/05/19 23:59 23:59 23:59 Intake Total 3925.0 / 3975.0 5910.0 / 5910.0 1622.5 / 1622.5 Output Total 2775 / 3875 2750 / 2750 1850 / 1850 Balance 1150.0 / 100.0 3160.0 / 3160.0 -227.5 / -227.5 General: Alert, Oriented x3, Cooperative, No apparent distress, Disoriented HEENT: Atraumatic, PERRLA, EOMI, Normocephalic Oral: Moist Mucosa Neck: Supple, No JVD Lungs: Clear to auscultation, Normal air movement, No rhonchi, No wheeze, No rales, Diminished Cardiovascular: Regular rate, Regular Rhythm, Normal S1, Normal S2, No murmurs Abdomen: Soft, Non Tender, Non-Distended, No Hepato-splenomegaly Extremities: Edema Skin: No rashes, No breakdown, Incision - Sacral wound Neurological: Neuro grossly intact, Sensory exam intact to light touch and pain Psych/Mental Status: Flat Affect Microbiology Past 72 Hours 08/30/19 05:56 Blood Culture (Wb) - Left Hand Blood Culture - Final No growth in 5 days. 08/29/19 14:10 Blood Culture (Wb) - Left Hand Blood Culture - Final No growth in 5 days. 08/19/19 16:06 Tissue - Sacral Gram Stain - Final 08/19/19 16:06 Tissue - Sacral Wound Culture - Preliminary Providencia stuartii Acinetobacter baumannii Vancomycin Resist. E. faecium 08/19/19 16:06 Tissue - Sacral Anaerobic Culture - Final Bacteroides fragilis group Anaerobic cocci 09/01/19 03:20 Blood Culture (Wb) - Anticubital Right Blood Culture - Preliminary No growth in 48 hours. 09/01/19 Unknown Blood Culture (Wb) - Right Forearm Blood Culture - Preliminary No growth in 48 hours. 08/28/19 09:46 Blood Culture (Wb) - Left Hand Blood Culture - Final No growth in 5 days. 08/28/19 09:40 Blood Culture (Wb) - Other Blood Culture - Final No growth in 5 days. 09/01/19 07:30 Urine Catheter - Arreguin Urine Culture - Final Lilliam albicans 08/29/19 17:20 Other - Pic Miscellaneous Culture - Final Staphylococcus epidermidis 08/29/19 17:20 Other - Pic Gram Stain - Final Laboratory Results 09/04/19 12:55: POC Glucose 88 09/04/19 17:16: POC Glucose 88 09/04/19 23:17: POC Glucose 78 09/05/19 06:38: POC Glucose 74 09/05/19 06:50: WBC 8.3, RBC 3.11 L, Hgb 9.2 L, Hct 30.6 L, MCV 98.4 H, MCH 29.6, MCHC 30.1 L, RDW Std Deviation 61.3 H, RDW Coeff of Tio 17.8 H, Plt Count 296, MPV 10.3 09/05/19 06:50: Sodium 138, Potassium 4.1, Chloride 110 H, Carbon Dioxide 22.0, Anion Gap 6, BUN 19 H, Creatinine 0.73, Estim Creat Clear Calc 110.30, Est GFR (MDRD) Af Amer 143, Est GFR (MDRD) Non-Af 118, BUN/Creatinine Ratio 26.2 H, Glucose 80, Calcium 7.5 L, Prealbumin 6.6 L Current Medications Acetaminophen (Tylenol Liquid) 650 mg PO Q6H PRN PRN PRN Reason: Pain Score 1-10/10 Last Admin: 09/05/19 04:15 Dose: 650 mg Documented by: Aspirin (Aspirin, Baby) 81 mg PO DAILYCM [facility] Last Admin: 09/05/19 10:05 Dose: 81 mg Documented by: Atorvastatin Calcium (Lipitor) 80 mg PO QHS [facility] Last Admin: 09/04/19 23:27 Dose: 80 mg Documented by: Calamine/Phenol (Calmoseptine Ointment) 1 applic TOPICAL TID [facility]; Protocol Last Admin: 09/05/19 06:50 Dose: 1 applicatio Documented by: Dextrose (D50w Syringe) 0 gm IV X1 PRN; Protocol PRN Reason: Hypoglycemia Diazepam (Valium) 5 mg PO Q6H PRN PRN PRN Reason: SPASMS Last Admin: 09/04/19 18:50 Dose: 5 mg Documented by: Diltiazem HCl (Cardizem) 60 mg PO Q8 [facility] Last Admin: 09/05/19 06:54 Dose: 60 mg Documented by: Enoxaparin Sodium (Lovenox) 40 mg SC DAILY [facility] Last Admin: 09/05/19 10:16 Dose: 40 mg Documented by: Fenofibrate (Tricor) 145 mg PO DAILY [facility] Last Admin: 09/05/19 10:11 Dose: 145 mg Documented by: Folic Acid (Folic Acid) 1 mg PO DAILYCM [facility] Last Admin: 09/05/19 10:05 Dose: 1 mg Documented by: Glucagon () 1 mg IM .X1 PRN PRN Reason: Hypoglycemia Meropenem 1 gm/ Sodium (Chloride) 120 mls @ 33 mls/hr IV Q8 [facility] Last Admin: 09/05/19 06:52 Dose: 33 mls/hr Documented by: Sodium Chloride () 250 mls @ 15 mls/hr IV .[id number] PRN PRN Reason: Saline Flush Last Infusion: 08/31/19 05:11 Dose: 0 mls/hr Documented by: Sodium Chloride () 250 mls @ 15 mls/hr IV .[id number] PRN PRN Reason: Additional IVPB Infusion Eravacycline 125 mg/ Sodium (Chloride) 262.5 mls @ 262.5 mls/hr IV Q12 [facility] Last Infusion: 09/05/19 01:20 Dose: Infused Documented by: Daptomycin 1,000 mg/ Sodium (Chloride) 70 mls @ 140 mls/hr IV Q24 [facility] Last Infusion: 09/04/19 12:55 Dose: Infused Documented by: Micafungin Sodium 100 mg/ (Dextrose) 105 mls @ 100 mls/hr IV Q24 [facility] Last Infusion: 09/04/19 11:58 Dose: Infused Documented by: Pantoprazole Sodium 40 mg/ (Sodium Chloride) 110 mls @ 330 mls/hr IV Q12 [facility] Last Admin: 09/05/19 10:25 Dose: 330 mls/hr Documented by: Dextrose () 1,000 mls @ 150 mls/hr IV .Q6H40M [facility] Last Admin: 09/05/19 10:05 Dose: 150 mls/hr Documented by: Insulin Human Lispro (Humalog Kwikpen (Bkc)) 0 unit SC Q6H [facility]; Protocol Last Admin: 09/05/19 06:52 Dose: Not Given Documented by: Lactobacillus Acidophilus (Acidophilus) 2 tablet PO DAILY [facility] Last Admin: 09/05/19 10:10 Dose: 2 tablet Documented by: Metoprolol Tartrate (Lopressor (Beta Dana)) 100 mg PO BID [facility] Last Admin: 09/05/19 10:11 Dose: 100 mg Documented by: Nystatin (Mycostatin Powder) 1 applic TOPICAL BID [facility]; Protocol Last Admin: 09/05/19 10:19 Dose: 1 applicatio Documented by: Oxycodone HCl (Oxyir) 5 mg PO Q6H PRN PRN PRN Reason: Pain Score 6-10/10 Last Admin: 09/05/19 01:30 Dose: 5 mg Documented by: Potassium Chloride (Potassium Chl Soln) [facility]q [facility] Last Admin: 09/05/19 10:07 Dose: 20 meq Documented by: Promethazine HCl (Phenergan Tablet) 25 mg PO Q4H PRN PRN PRN Reason: NAUSEA/VOMITING Sodium Chloride () 10 - 40 ml IV UD PRN PRN Reason: SALINE FLUSH Last Admin: 09/05/19 06:49 Dose: 10 ml Documented by: Sodium Hypochlorite (Dakins Solution 0.25% (1/2 Strength)) 1 applic TOPICAL BID [facility]; Protocol Last Admin: 09/05/19 10:11 Dose: 1 applicatio Documented by: Valproic Acid (Depakene) 750 mg PO TID [facility] Last Admin: 09/05/19 06:54 Dose: 750 mg Documented by: Home Medications: Medications to take at Discharge Acetaminophen [Tylenol] 650 mg PO Q6H PRN 07/21/19 Cimetidine [Tagamet Hb] 100 mg PO DAILY 07/21/19 Docusate Sodium [Colace] 100 mg PO BID 07/21/19 Duloxetine Hcl [Cymbalta] 60 mg PO DAILY 07/21/19 Folic Acid 1 mg PO DAILY 07/21/19 Metformin HCl 2,000 mg PO DAILY 07/21/19 Metoprolol Tartrate [Lopressor] 100 mg PO BID 07/21/19 [place]-3 Fatty Acids/Fish Oil [Fish Oil 1,000 mg Capsule] 1 ea PO DAILY 07/21/19 Omeprazole 20 mg PO DAILY 07/21/19 Polyethylene Glycol 3350 [Miralax] 17 gm PO DAILY 07/21/19 Valproic Acid 750 mg PO TID 07/21/19 Argin/Glut/Cahmb/Collag/Mv-Min [Mike Packet] 1 ea PO BID 08/01/19 Aspirin [Aspirin, Baby] 81 mg PO DAILY@0800 08/04/19 Enoxaparin [Lovenox] 40 mg SUBCUT DAILY@0600 syringe 08/13/19 proMETHazine tablet [Phenergan tablet] 25 mg PO Q4H PRN PRN tab 08/13/19 Atorvastatin Calcium [Lipitor] 80 mg PO QHS 08/18/19 Diazepam [Valium] 5 mg PO Q6H PRN 08/18/19 Diltiazem [Cardizem] 60 mg PO TID 08/18/19 Fenofibrate,Micronized [Fenofibrate] 200 mg PO DAILY 08/18/19 Lactobacillus Acidophilus [Acidophilus] 2 cap PO DAILY 08/18/19 Multivitamin 1 tab PO DAILY 08/18/19 DAPTOmycin [Cubicin] 1,000 mg IV Q24 33 Days #33 vial 08/28/19 Eravacycline [Xerava] 125 mg IV Q12 33 Days #66 vial 08/28/19 Meropenem [Merrem] 1 gm IV Q8 33 Days #99 vial 08/28/19 Micafungin Sodium [Mycamine] 100 mg IV Q24 7 Days #7 vial 09/04/19 Oxycodone [Oxyir] 5 mg PO Q6H PRN PRN 3 Days #10 tab 09/05/19 Sodium Hypochlorite [Dakins Solution 0.25% (1/2 Strength)] 1 applic TOPICAL BID bottle 09/05/19 Following Prescriptions Were Given to Patient: DAPTOmycin [Cubicin] 1,000 mg IV Q24 33 Days #33 vial Prescription Printed Meropenem [Merrem] 1 gm IV Q8 33 Days #99 vial Prescription Printed Micafungin Sodium [Mycamine] 100 mg IV Q24 7 Days #7 vial Prescription Printed Oxycodone [Oxyir] 5 mg PO Q6H PRN PRN 3 Days #10 tab PRN Reason: Pain Score 6-10/10 Prescription Printed Eravacycline [Xerava] 125 mg IV Q12 33 Days #66 vial Prescription Printed Primary Care Physician: Jamaica Lambert MD [NON-STAFF] - Please follow up with your Primary Care Physician in: 3-5 days after DC from LTAC Disposition: [facility] Acute Care Minutes spent on discharge:: 40 Patient Condition:: Stable Medical Necessity - Tobacco Use Smoking Status: Current every day smoker Meaningful Use Info Meaningful Use Diagnoses (Choose all that apply): None applicable Inpatient E&M: 09935 Disch Hosp
--- NOTE | 2019-09-05 11:49 | PHA.DC.MR ---
Pharmacy Service has performed discharge medication reconciliation for this patient. The patient's discharge medication list was reviewed for discrepancies and discrepancies were resolved. Home Medications Acetaminophen [Tylenol] 650 mg PO Q6H PRN 07/21/19 Cimetidine [Tagamet Hb] 100 mg PO DAILY 07/21/19 Docusate Sodium [Colace] 100 mg PO BID 07/21/19 Duloxetine Hcl [Cymbalta] 60 mg PO DAILY 07/21/19 Folic Acid 1 mg PO DAILY 07/21/19 Metformin HCl 2,000 mg PO DAILY 07/21/19 Metoprolol Tartrate [Lopressor] 100 mg PO BID 07/21/19 [place]-3 Fatty Acids/Fish Oil [Fish Oil 1,000 mg Capsule] 1 ea PO DAILY 07/21/19 Omeprazole 20 mg PO DAILY 07/21/19 Polyethylene Glycol 3350 [Miralax] 17 gm PO DAILY 07/21/19 Valproic Acid 750 mg PO TID 07/21/19 Argin/Glut/Cahmb/Collag/Mv-Min [Mike Packet] 1 ea PO BID 08/01/19 Aspirin [Aspirin, Baby] 81 mg PO DAILY@0800 08/04/19 Enoxaparin [Lovenox] 40 mg SUBCUT DAILY@0600 syringe 08/13/19 proMETHazine tablet [Phenergan tablet] 25 mg PO Q4H PRN PRN tab 08/13/19 Atorvastatin Calcium [Lipitor] 80 mg PO QHS 08/18/19 Diazepam [Valium] 5 mg PO Q6H PRN 08/18/19 Diltiazem [Cardizem] 60 mg PO TID 08/18/19 Fenofibrate,Micronized [Fenofibrate] 200 mg PO DAILY 08/18/19 Lactobacillus Acidophilus [Acidophilus] 2 cap PO DAILY 08/18/19 Multivitamin 1 tab PO DAILY 08/18/19 DAPTOmycin [Cubicin] 1,000 mg IV Q24 33 Days #33 vial 08/28/19 Eravacycline [Xerava] 125 mg IV Q12 33 Days #66 vial 08/28/19 Meropenem [Merrem] 1 gm IV Q8 33 Days #99 vial 08/28/19 Micafungin Sodium [Mycamine] 100 mg IV Q24 7 Days #7 vial 09/04/19 Oxycodone [Oxyir] 5 mg PO Q6H PRN PRN 3 Days #10 tab 09/05/19 Sodium Hypochlorite [Dakins Solution 0.25% (1/2 Strength)] 1 applic TOPICAL BID bottle 09/05/19
[2019-09-05 13:05] LABS: Bedside Glucose 78 mg/dL (70-110)
--- NOTE | 2019-09-05 15:01 | NURSING ---
Report called to Jes, nurse at [facility].
== END 2019-09-05 15:48 | DRG 710 ==
LOC: ED 13:34 → ICU 14:08 → MS3 08-23 11:03 → ICU 08-24 20:45 → PCU 08-27 12:22 → ICU 09-01 02:04 → PCU 09-02 19:16
PROVIDERS: Family Medicine; Hospitalist; Internal Medicine; Internal Medicine Critical Care Medicine; Internal Medicine Infectious Disease; Surgery; Admitting Provider Student in an Organized Health Care Education/Training Program; Emergency Provider Emergency Medicine; PCP Internal Medicine; Visit Provider Family Medicine
PROC: 0QB10ZZ Excision of Sacrum, Open Approach (ICD-10-PCS; CPT 15999; principal; 2019-08-19 07:15)
PROC: 0D1E4Z4 Bypass Large Intestine to Cutaneous, Percutaneous Endoscopic Approach (ICD-10-PCS; CPT 44188; principal; 2019-08-20 09:35)
PROC: 0D1N4Z4 Bypass Sigmoid Colon to Cutaneous, Percutaneous Endoscopic Approach (ICD-10-PCS; CPT 49320; principal; 2019-08-20 23:00)
DX: A41.59 Other Gram-negative sepsis (principal); T83.518A Infection and inflammatory reaction due to other urinary catheter, initial encounter; L89.154 Pressure ulcer of sacral region, stage 4; B95.2 Enterococcus as the cause of diseases classified elsewhere; B95.62 Methicillin resistant Staphylococcus aureus infection as the cause of diseases classified elsewhere; B95.7 Other staphylococcus as the cause of diseases classified elsewhere; N30.00 Acute cystitis without hematuria; M46.28 Osteomyelitis of vertebra, sacral and sacrococcygeal region; G40.909 Epilepsy, unspecified, not intractable, without status epilepticus; E11.51 Type 2 diabetes mellitus with diabetic peripheral angiopathy without gangrene; J96.01 Acute respiratory failure with hypoxia; R65.20 Severe sepsis without septic shock; F17.210 Nicotine dependence, cigarettes, uncomplicated; I25.10 Atherosclerotic heart disease of native coronary artery without angina pectoris; F32.9 Major depressive disorder, single episode, unspecified; G93.41 Metabolic encephalopathy; G47.30 Sleep apnea, unspecified; E11.22 Type 2 diabetes mellitus with diabetic chronic kidney disease; I13.0 Hypertensive heart and chronic kidney disease with heart failure and stage 1 through stage 4 chronic kidney disease, or unspecified chronic kidney disease; N18.9 Chronic kidney disease, unspecified; I50.9 Heart failure, unspecified; Z95.1 Presence of aortocoronary bypass graft; Z79.84 Long term (current) use of oral hypoglycemic drugs; Z79.899 Other long term (current) drug therapy; Z79.82 Long term (current) use of aspirin; E78.5 Hyperlipidemia, unspecified; Z91.5 Personal history of self-harm; K21.9 Gastro-esophageal reflux disease without esophagitis; I48.0 Paroxysmal atrial fibrillation; E66.01 Morbid (severe) obesity due to excess calories; Z68.41 Body mass index [BMI] 40.0-44.9, adult; Z96.0 Presence of urogenital implants; Z99.3 Dependence on wheelchair; E87.1 Hypo-osmolality and hyponatremia; E87.6 Hypokalemia; L08.89 Other specified local infections of the skin and subcutaneous tissue; B96.4 Proteus (mirabilis) (morganii) as the cause of diseases classified elsewhere; B96.89 Other specified bacterial agents as the cause of diseases classified elsewhere; B96.29 Other Escherichia coli [E. coli] as the cause of diseases classified elsewhere; Z95.0 Presence of cardiac pacemaker; F10.11 Alcohol abuse, in remission; K91.71 Accidental puncture and laceration of a digestive system organ or structure during a digestive system procedure; K94.09 Other complications of colostomy; Y65.8 Other specified misadventures during surgical and medical care; Y92.234 Operating room of hospital as the place of occurrence of the external cause
CPT/HCPCS: 36415; 36569; 36592; 36600; 36620; 71045; 74018; 74176; 74177; 80048; 80053; 80076; 80202; 81001; 82140; 82274; 82550; 82803; 82962; 83605; 83735; 84134; 84145; 84478; 84484; 85014; 85018; 85025; 85027; 85610; 85730; 86703; 86706; 86803; 86850; 86900; 86901; 86920; 86922; 87015; 87040; 87070; 87075; 87077; 87086; 87088; 87102; 87106; 87116; 87186; 87205; 87206; 87340; 87493; 87635; 87640; 88305; 88307; 88311; 92526; 92610; 93005; 93306; 94002; 94003; 94660; 97110; 97162; 97166; 97530; 97802; 97803; 99285; G2023; J0878; J2185; J2997; J7030; J7040; J7050; P9016; P9040; Q9957; Q9967; A4216; C1760; C8929; J0122; J0696; J2405; J3490; U0003